=== PATIENT | male | born 1945 | race Caucasian/White ===

== ENCOUNTER 2016-09-25 20:40 | Inpatient (IN) | payer MEDICARE, BC ==
[2016-09-25] MEDS ORDERED: ACETAMINOPHEN TAB 500 MG TAB PO STA (21:11)
[2016-09-25] MEDS ORDERED: SODIUM CHLORIDE 0.9% 1,000 ML IV STA (21:11)
[2016-09-25 21:27] LABS: Basophils % (A) 0 %; Eosinophils % (A) 1 %; HCT 46.6 % (39.0-53.0); HDW 2.81; HGB 15.7 gm/dL (13.0-17.5); Immature Gran Flag Marked; Luc # (Auto) 0.01; Luc % (Auto) 0; Lymphocytes # (A) 0.2 k/uL (1.0-4.8); Lymphocytes % (A) 5 %; MCH 30.9 pg (25.0-35.0); MCHC 33.7 g/dL (31.0-37.0); MCV 91.8 fL (80.0-100.0); Mean Platelet Volume 7.5; Monocytes # (A) 0.1 k/uL (0-1.0); Monocytes % (A) 2 %; Neutrophils # (A) 3.8 k/uL (1.3-7.7); Neutrophils % (A) 92 %; RBC 5.07 m/uL (4.30-5.90); RDW 14.4 % (11.5-15.5); WBC 4.1 k/uL (3.8-10.6); WBC (Perox) 3.84
[2016-09-25 21:31] LABS: Amorphous Sediment,Urine Rare /hpf; Appearance,Urine Clear (Clear); Bacteria,Urine Rare /hpf; Bilirubin,Urine Negative (Negative); Glucose,Urine (UA) Negative (Negative); Granular Casts,Urine 1 /lpf (0); Ketones,Urine Negative (Negative); Leukocyte Esterase,Urine Negative (Negative); Mucus,Urine Rare /hpf; Nitrite,Urine Negative (Negative); PH, Urine 5.5 (5.0-8.0); Particle Count 2388; Protein,Urine 2+ (Negative); RBC,Urine <1 /hpf (0-5); Specific Gravity,Urine 1.005 (1.001-1.035); UA Billing (MACRO vs. MICRO) MICRO; Urobilinogen,Urine <2.0 mg/dL (<2.0)
[2016-09-25] MEDS ORDERED: RX INFO: IV CONTRAST WAS GIVEN 1 EACH MISC MISCELLANE PRN (21:32)
[2016-09-25 21:54] LABS: ALT 265 U/L (21-72); AST 339 U/L (17-59); Alkaline Phosphatase 110 U/L (38-126); Amylase 82 U/L (30-110); Anion Gap 9 mmol/L; Blood Urea Nitrogen 24 mg/dL (9-20); Calcium 9.1 mg/dL (8.4-10.2); Carbon Dioxide 22 mmol/L (22-30); Chloride 110 mmol/L (98-107); Glucose 117 mg/dL (74-99); Non-African American GFR(MDRD) 54 (>60 ml/min/1.73 sqM); Potassium 4.6 mmol/L (3.5-5.1); Sodium 141 mmol/L (137-145); Total Bilirubin 1.8 mg/dL (0.2-1.3); Total Protein 6.8 g/dL (6.3-8.2)
--- NOTE | 2016-09-25 21:54 | ED ---
Back Pain HPI <ClarkDaquan - Last Filed: 09/26/16 00:16> - General Source: patient, EMS, RN notes reviewed, old records reviewed Limitations: no limitations <Jacque Gil - Last Filed: 09/26/16 03:35> - General Chief Complaint: Back Pain/Injury Stated Complaint: back pain Time Seen by Provider: 09/25/16 20:51 - History of Present Illness Initial Comments: 71-year-old male presents the ED chief complaint of back pain. Patient reports that he was working in the yard today and thinks he pulled a muscle. Patient arrived to the ambulance via EMS as the pain was penetrating down his legs. Patient was found to have a fever. Temperature 103.4. Patient states that his pain is now reduced after receiving morphine from EMS. Patient states that he did not notice having a fever earlier today but did feel very cold. He denies any abdominal pain. Patient reports the pain started in the lower back radiating towards his hips. Patient denies any difficulty urinating or changes in bowel movements. Patient reports that he had a colonoscopy one month ago. 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 He also reports he does have a previous cardiac history including a stent. Patient doesn't any chest pain or shortness of breath. ( Jacque Gil) - Related Data Home Medications Medication Instructions Recorded Confirmed Allopurinol [Zyloprim] 100 mg PO BID 09/25/16 09/25/16 Aspirin [Adult Low Dose Aspirin EC] 81 mg PO BID 09/25/16 09/25/16 Carvedilol [Coreg] 25 mg PO BID 09/25/16 09/25/16 DULoxetine HCL [Cymbalta] 60 mg PO DAILY 09/25/16 09/25/16 Ergocalciferol [Vitamin D2] 50,000 unit PO Q14D 09/25/16 09/25/16 Furosemide [Lasix] 20 mg PO SUTUWETHSA 09/25/16 09/25/16 Furosemide [Lasix] 40 mg PO MOFR 09/25/16 09/25/16 LORazepam [Ativan] 1 mg PO DAILY PRN 09/25/16 09/25/16 Liraglutide [Victoza 2-Seferino] 0.6 mg SQ DAILY 09/25/16 09/25/16 Lisinopril [Zestril] 40 mg PO DAILY 09/25/16 09/25/16 Multivitamins, Thera [Multivitamin 1 tab PO DAILY 09/25/16 09/25/16 (formulary)] Nitroglycerin Sl Tabs [Nitrostat] 0.4 mg SUBLINGUAL Q5M PRN 09/25/16 09/25/16 Nortriptyline HCl [Pamelor] 50 mg PO HS 09/25/16 09/25/16 [place]-3/Dha/Epa/Fish Oil [Fish Oil 1 cap PO DAILY 09/25/16 09/25/16 1,360 mg Softgel] Rosuvastatin [Crestor] 10 mg PO HS 09/25/16 09/25/16 Terazosin HCl 2 mg PO BID 09/25/16 09/25/16 Ubidecarenone [Co Q-10] 100 mg PO DAILY 09/25/16 09/25/16 Allergies Allergy/AdvReac Type Severity Reaction Status Date / Time adhesive tape Allergy Itching Verified 09/25/16 21:24 Penicillins Allergy Rash/Hives Verified 09/25/16 21:24 prednisone AdvReac Unknown Verified 09/25/16 21:24 Review of Systems ROS Other: All systems not noted in ROS Statement are negative. <Daquan Clark - Last Filed: 09/26/16 00:16> ROS Other: All systems not noted in ROS Statement are negative. <Jacque Gil - Last Filed: 09/26/16 03:35> ROS Statement: Those systems with pertinent positive or pertinent negative responses have been documented in the HPI. Past Medical History Past Medical History: Diabetes Mellitus, Fibromyalgia, Hyperlipidemia, Hypertension, Myocardial Infarction ([place]), Renal Disease History of Any Multi-Drug Resistant Organisms: None Reported Past Surgical History: Adenoidectomy, Heart Catheterization With Stent Past Psychological History: Anxiety Smoking Status: Never smoker Past Alcohol Use History: None Reported Past Drug Use History: None Reported - Past Family History Father Family Medical History: No Reported History <Jacque Gil - Last Filed: 09/26/16 03:35> General Exam <Daquan Clark - Last Filed: 09/26/16 00:16> Limitations: no limitations General appearance: alert, in no apparent distress Head exam: Present: atraumatic, normocephalic, normal inspection Eye exam: Present: normal appearance, PERRL, EOMI. Absent: scleral icterus, conjunctival injection, periorbital swelling ENT exam: Present: normal exam, mucous membranes moist Neck exam: Present: normal inspection. Absent: tenderness, meningismus, lymphadenopathy Respiratory exam: Present: normal lung sounds bilaterally. Absent: respiratory distress, wheezes, rales, rhonchi, stridor Cardiovascular Exam: Present: regular rate, normal rhythm, normal heart sounds. Absent: systolic murmur, diastolic murmur, rubs, gallop, clicks GI/Abdominal exam: Present: soft, normal bowel sounds. Absent: distended, tenderness, guarding, rebound, rigid Extremities exam: Present: normal inspection, full ROM, normal capillary refill. Absent: tenderness, pedal edema, joint swelling, calf tenderness Back exam: Present: normal inspection, other (Patient denies any back or abdominal pain at this time.) Neurological exam: Present: alert, oriented X3, CN II-XII intact Psychiatric exam: Present: normal affect, normal mood Skin exam: Present: warm, dry, intact, normal color. Absent: rash <Jacque Gil - Last Filed: 09/26/16 03:35> - General Exam Comments Initial Comments: Well-appearing 71-year-old male. No acute distress. (Jacque Gil) Medical Decision Making - Lab Data Result diagrams: 09/25/16 21:05 09/25/16 21:05 <Daquan Clark - Last Filed: 09/26/16 00:16> - Lab Data Result diagrams: 09/25/16 21:05 09/25/16 21:05 - Radiology Data Radiology results: report reviewed <Jacque Gil - Last Filed: 09/26/16 03:35> - Medical Decision Making Patient reevaluated by myself, Dr. Clark. Patient is feeling better. Patient states back discomfort is near resolved. No tenderness on exam. Abdomen is soft with minimal tenderness left lower abdomen. Computed tomography scan concerning for mild diverticulitis. Also cholelithiasis. Case was discussed with Dr. Triana, who will admit for hospital call. Dr. Anaya will be placed on consult. Patient does meet sepsis criteria diagnosed at 12:17 AM. Lactic acid and blood cultures have been drawn. IV antibiotics have been ordered. (Daquan Clark) 71-year-old male presents the ED are via EMS for chief complaint of lower back pain. Patient was found to have a fever via EMS. They brought him in after giving for morphine. Patient denies any back pain or any pain at this time. He does report that he still feels chilled. Patient was given Tylenol. Patient was given IV fluids and lab work was started. Patient's weight little, is normal. Patient's urinalysis did show trace blood but no other abnormalities. Patient's chem panel did show elevated AST and ALTs. AST is 339 and ALTs 265. Again patient denies any abdominal tenderness. Patient does have an no back pain at this time. Patient's vital signs were monitored continually having a heart rate 120. Oxygen saturation tends to be low at 94- 95. Chest x-ray was ordered, negative for any acute process. Computed tomography scan shows concern for mild diverticulitis also cholelithiasis. Patient was started on Levaquin and Flagyl. Patient case was assessed with Dr. Clark. He will admit the patient for Dr. Nina and Dr. Anaya will be consult. Patient's does show us previous labwork that he had drawn in May of this past year. Patient had no abnormal elevations of the liver enzymes at that time. We did order a hepatitis panel as well. (Jacque Gil) - Lab Data Lab Results 09/25/16 09/25/16 09/25/16 Range/Units 21:05 21:05 21:05 WBC 4.1 (3.8-10.6) k/uL RBC 5.07 (4.30-5.90) m/uL Hgb 15.7 (13.0-17.5) gm/dL Hct 46.6 (39.0-53.0) % MCV 91.8 (80.0-100.0) fL MCH 30.9 (25.0-35.0) pg MCHC 33.7 (31.0-37.0) g/dL RDW 14.4 (11.5-15.5) % Plt Count 75 L (150-450) k/uL Neutrophils % 92 % Lymphocytes % 5 % Monocytes % 2 % Eosinophils % 1 % Basophils % 0 % Neutrophils # 3.8 (1.3-7.7) k/uL Lymphocytes # 0.2 L (1.0-4.8) k/uL Monocytes # 0.1 (0-1.0) k/uL Eosinophils # 0.0 (0-0.7) k/uL Basophils # 0.0 (0-0.2) k/uL Manual Slide Review Performed Toxic Granulation Present Sodium 141 (137-145) mmol/L Potassium 4.6 (3.5-5.1) mmol/L Chloride 110 H (98-107) mmol/L Carbon Dioxide 22 (22-30) mmol/L Anion Gap 9 mmol/L BUN 24 H (9-20) mg/dL Creatinine 1.30 H (0.66-1.25) mg/dL Est GFR (MDRD) Af Amer >60 (>60 ml/min/1.73 sqM) Est GFR (MDRD) Non-Af 54 (>60 ml/min/1.73 sqM) Glucose 117 H (74-99) mg/dL Plasma Lactic Acid Axel 1.7 (0.7-2.0) mmol/L Calcium 9.1 (8.4-10.2) mg/dL Total Bilirubin 1.8 H (0.2-1.3) mg/dL AST 339 H (17-59) U/L ALT 265 H (21-72) U/L Alkaline Phosphatase 110 (38-126) U/L Total Protein 6.8 (6.3-8.2) g/dL Albumin 4.0 (3.5-5.0) g/dL Amylase 82 (30-110) U/L Lipase 170 (23-300) U/L Urine Color Urine Appearance (Clear) Urine pH (5.0-8.0) Ur Specific [place] (1.001-1.035) Urine Protein (Negative) Urine Glucose (UA) (Negative) Urine Ketones (Negative) Urine Blood (Negative) Urine Nitrite (Negative) Urine Bilirubin (Negative) Urine Urobilinogen (<2.0) mg/dL Ur Leukocyte Esterase (Negative) Urine RBC (0-5) /hpf Amorphous Sediment (None) /hpf Urine Bacteria (None) /hpf Granular Casts (0) /lpf Urine Mucus (None) /hpf Hepatitis A IgM Ab Hep Bs Antigen Hep B Core IgM Ab Hep C IgG Ab (Negative) 06/25/17 06/25/17 Range/Units 21:05 21:05 WBC (3.8-10.6) k/uL RBC (4.30-5.90) m/uL Hgb (13.0-17.5) gm/dL Hct (39.0-53.0) % MCV (80.0-100.0) fL MCH (25.0-35.0) pg MCHC (31.0-37.0) g/dL RDW (11.5-15.5) % Plt Count (150-450) k/uL Neutrophils % % Lymphocytes % % Monocytes % % Eosinophils % % Basophils % % Neutrophils # (1.3-7.7) k/uL Lymphocytes # (1.0-4.8) k/uL Monocytes # (0-1.0) k/uL Eosinophils # (0-0.7) k/uL Basophils # (0-0.2) k/uL Manual Slide Review Toxic Granulation Sodium (137-145) mmol/L Potassium (3.5-5.1) mmol/L Chloride (98-107) mmol/L Carbon Dioxide (22-30) mmol/L Anion Gap mmol/L BUN (9-20) mg/dL Creatinine (0.66-1.25) mg/dL Est GFR (MDRD) Af Amer (>60 ml/min/1.73 sqM) Est GFR (MDRD) Non-Af (>60 ml/min/1.73 sqM) Glucose (74-99) mg/dL Plasma Lactic Acid Axel (0.7-2.0) mmol/L Calcium (8.4-10.2) mg/dL Total Bilirubin (0.2-1.3) mg/dL AST (17-59) U/L ALT (21-72) U/L Alkaline Phosphatase (38-126) U/L Total Protein (6.3-8.2) g/dL Albumin (3.5-5.0) g/dL Amylase (30-110) U/L Lipase (23-300) U/L Urine Color Light Yellow Urine Appearance Clear (Clear) Urine pH 5.5 (5.0-8.0) Ur Specific [place] 1.005 (1.001-1.035) Urine Protein 2+ H (Negative) Urine Glucose (UA) Negative (Negative) Urine Ketones Negative (Negative) Urine Blood Trace H (Negative) Urine Nitrite Negative (Negative) Urine Bilirubin Negative (Negative) Urine Urobilinogen <2.0 (<2.0) mg/dL Ur Leukocyte Esterase Negative (Negative) Urine RBC <1 (0-5) /hpf Amorphous Sediment Rare H (None) /hpf Urine Bacteria Rare H (None) /hpf Granular Casts 1 (0) /lpf Urine Mucus Rare H (None) /hpf Hepatitis A IgM Ab NEGATIVE Hep Bs Antigen Negative Hep B Core IgM Ab NEGATIVE Hep C IgG Ab Negative (Negative) 09/26/16 02:52 EKG showed sinus tachycardia. Rightward axis. Ventricular rate of 140 bpm. Verbal 144 ms. QRS ration 96 ms. QT QTc is 316/482 ms. No evidence of ST elevation or T-wave inversion. (Jacque Gil) - Radiology Data CT abdomen and pelvis with contrast was performed. Findings included small gallstones, no glad gallbladder wall thickening or pericolic systolic fluid. The liver spleen and pancreas and adrenal glands show no substantial abnormality. There is mild nonspecific bilateral perirenal edema. This could be due to since state changes. However correlate with urinalysis to exclude infection. No hydronephrosis or hydroureter. There is moderate sigmoid diverticulosis with wall thickening. Could result represent mild diverticulitis. Mesenteric hyperemia seen at the site. There is fatty infiltration of the urinary bladder wall which could be secondary to prior infection. No lymphadenopathy. No aortic abnormality. Multilevel degenerative spondylosis and minimal rightward curvature of the mid lumbar spine and minimal right lumbar subluxation of L3 relative to L4. X-ray shows no evidence of consolidation. (Jacque Gil) Disposition <Daquan Clark - Last Filed: 09/26/16 00:16> Time of Disposition: 00:30 <Jacque Gil - Last Filed: 09/26/16 03:35> Clinical Impression: Sepsis, Diverticulitis, Elevated liver enzymes Disposition: ADMITTED IP TO THIS HOSP Condition: Stable
[2016-09-25 22:00] LABS: Manual Review Performed; Toxic Granulation Present
--- NOTE | 2016-09-25 22:57 | CT ---
Exam: CT ABDOMEN + PELVIS With Contrast History: Lower back pain and fever.. Comparison: None provided. Technique: Continuous axial images of the abdomen and pelvis are obtained after administration of intravenous contrast. Coronal and sagittal reformatting was provided. Findings: There are small gallstones, but no gallbladder wall thickening or pericholecystic fluid. The liver, spleen, pancreas, and adrenal glands show no substantial abnormality. There is mild nonspecific bilateral perirenal edema. This could be due to senescent changes. However, correlate with urinalysis to exclude infection. No hydronephrosis or hydroureter. There is moderate sigmoid diverticulosis with mild wall thickening. This could represent mild diverticulitis. Minimal mesenteric hyperemia seen at this site. No dilated loop of bowel. There is fatty infiltration of the urinary bladder wall which may be secondary to prior infection. No lymphadenopathy appreciated. No acute aortic abnormality. No aggressive appearing osseous process. Multi- level degenerative spondylosis with a minimal rightward curvature of the midlumbar spine and a minimal right lateral subluxation of L3 relative to L4. Impression: 1. Question mild diverticulitis. 2. Cholelithiasis. 3. Additional nonacute findings as discussed above. DLP = 1690.0 mGycm One or more of the following dose reduction techniques were used: automated exposure control, adjustment of the mA and/or kV according to patient size, use of iterative reconstruction technique.
[2016-09-25] MEDS ORDERED: IBUPROFEN 600 MG TAB PO STA (23:10)
[2016-09-26] MEDS ORDERED: LEVOFLOXACIN 750MG-D5W PMX 750 MG in DEXTROSE/WATER 1 150ML.BAG IVPB STA (00:08)
[2016-09-26] MEDS ORDERED: metroNIDAZOLE-NS PMX 500 MG in SALINE 1 100ML.BAG IVPB STA (00:08)
[2016-09-26] MEDS ORDERED: SODIUM CHLORIDE 0.9% 1,000 ML IV STA (00:18)
[2016-09-26] MEDS ORDERED: HYDROcodone/APAP 5-325MG 1 EACH TAB PO PRN (00:31)
[2016-09-26] MEDS ORDERED: NALOXONE 0.4 MG/ML 1 ML VIAL IV PRN (00:31)
[2016-09-26] MEDS ORDERED: HYDROmorphone 1 MG/ML 1 ML SYRINGE IV PRN (00:31)
[2016-09-26] MEDS ORDERED: ONDANSETRON 4 MG/2 ML VIAL IVP PRN (00:31)
[2016-09-26] MEDS ORDERED: ACETAMINOPHEN TAB 325 MG TAB PO PRN (00:31)
[2016-09-26 01:31] VITALS: BMI 29.3
--- NOTE | 2016-09-26 01:42 | XR ---
Exam: XR CXR 2 VIEWS History: Pain. Comparison: None provided. Technique: 2 views. Findings: Streaky densities projecting over the lower thoracic spine on the lateral view are felt to represent vascular shadows and overlap of the descending thoracic aorta. No definite focal consolidation or significant effusion. Heart shadow is top normal in transverse dimension, likely accentuated by technique. Impression: No definite consolidation.
[2016-09-26 02:06] LABS: Hepatitis B Surface Ag Index 0.05
[2016-09-26 02:12] LABS: Hepatitis B Core IgM Index 0.02
[2016-09-26 02:23] LABS: Hepatitis C Virus IgG Ab Negative (Negative); Hepatitis C Virus IgG Index 0.02
[2016-09-26 06:59] LABS: Glucose,Whole Blood 140 mg/dL (75-99)
[2016-09-26] MEDS: metroNIDAZOLE-NS PMX 500 MG in SALINE 1 100ML.BAG IVPB SCH ×2 (07:47→15:53)
[2016-09-26] MEDS: SODIUM CHLORIDE 0.9% 1,000 ML IV SCH ×3 (07:47→15:51)
[2016-09-26] MEDS: PANTOPRAZOLE 40 MG/10 ML VIAL IV SCH (07:56)
[2016-09-26 08:22] LABS: Basophils % (A) 0 %; CH 31.7; CHCM 34.3; Eosinophils # (A) 0.1 k/uL (0-0.7); Eosinophils % (A) 0 %; HCT 40.6 % (39.0-53.0); HDW 2.71; HGB 13.7 gm/dL (13.0-17.5); Luc % (Auto) 1; Lymphocytes # (A) 0.6 k/uL (1.0-4.8); Lymphocytes % (A) 5 %; MCH 31.3 pg (25.0-35.0); MCHC 33.7 g/dL (31.0-37.0); MCV 92.8 fL (80.0-100.0); Mean Platelet Volume 7.6; Monocytes # (A) 0.6 k/uL (0-1.0); Monocytes % (A) 5 %; Neutrophils # (A) 11.5 k/uL (1.3-7.7); Neutrophils % (A) 89 %; RBC 4.38 m/uL (4.30-5.90); RDW 14.4 % (11.5-15.5); WBC 12.9 k/uL (3.8-10.6); WBC (Perox) 13.54
[2016-09-26 08:23] LABS: Calcium 7.8 mg/dL (8.4-10.2); Potassium 5.1 mmol/L (3.5-5.1); Total Bilirubin 1.2 mg/dL (0.2-1.3); Total Protein 5.8 g/dL (6.3-8.2)
[2016-09-26 11:56] LABS: Glucose,Whole Blood 113 mg/dL (75-99)
--- NOTE | 2016-09-26 13:35 | P.NPCON ---
History of Present Illness - Reason for Consult acute renal failure - History of Present Illness Reason for consultation: Acute kidney injury on chronic kidney disease History of present illness: Patient is a 71-year-old male seen in renal consultation for acute kidney injury on chronic kidney disease. Vision has chronic kidney disease stage III secondary to biopsy-proven FSGS with baseline creatinine in the range of 1.3- 1.4. His creatinine was 1.3 yesterday and is elevated at 2 today. Patient presented to the hospital with back pain that started after he did yard work. Patient states the pain was radiating down both of his legs. His oral intake has been good. He denies any vomiting or diarrhea. At the time of presentation he had a CAT scan of the abdomen and pelvis done with IV contrast which revealed sigmoid diverticulitis for which she is currently maintained on IV antibiotics. Patient also states he had a dental implant about 2 weeks ago for which she completed course of clindamycin. His blood pressures have also been on the lower side in the systolic 90s. His lactic acid level was 3.5 yesterday and is down to 1.4 today. He did receive 2 L of IV fluid. He did receive 1 dose of Motrin this admission. At home he is maintained on diuretics as well as an TERRENCE inhibitor check currently held. He diarrhea. He was also noted to have a fever of 103.4 at the time of admission. He is afebrile this morning. Denies chest pain or shortness of breath. Vital signs are stable. General: The patient appeared well nourished and normally developed. HEENT: Head exam is unremarkable. Neck is without jugular venous distension. LUNGS: Lungs are clear to auscultation and percussion. Breath sounds decreased. HEART: Rate and Rhythm are regular. First and second heart sounds normal. No murmurs, rubs or gallops. ABDOMEN: Abdominal exam reveals normal bowel sounds. Non-tender and non- distended. No evidence of peritonitis. EXTREMITITES: No clubbing, cyanosis, or edema. Past Medical History Past Medical History: Diabetes Mellitus, Fibromyalgia, Hyperlipidemia, Hypertension, Myocardial Infarction ([place]), Renal Disease Last Myocardial Infarction Date:: 2010 History of Any Multi-Drug Resistant Organisms: None Reported Past Surgical History: Adenoidectomy, Heart Catheterization With Stent Past Anesthesia/Blood Transfusion Reactions: No Reported Reaction Date of Last Stent Placement:: 2011 Past Psychological History: Anxiety Smoking Status: Never smoker Past Alcohol Use History: None Reported Past Drug Use History: None Reported - Past Family History Father Family Medical History: No Reported History Medications and Allergies Home Medications Medication Instructions Recorded Confirmed Type Allopurinol [Zyloprim] 100 mg PO BID 09/25/16 09/25/16 History Aspirin [Adult Low Dose Aspirin EC] 81 mg PO BID 09/25/16 09/25/16 History Carvedilol [Coreg] 25 mg PO BID 09/25/16 09/25/16 History DULoxetine HCL [Cymbalta] 60 mg PO DAILY 09/25/16 09/25/16 History Ergocalciferol [Vitamin D2] 50,000 unit PO Q14D 09/25/16 09/25/16 History Furosemide [Lasix] 20 mg PO SUTUWETHSA 09/25/16 09/25/16 History Furosemide [Lasix] 40 mg PO MOFR 09/25/16 09/25/16 History LORazepam [Ativan] 1 mg PO DAILY PRN 09/25/16 09/25/16 History Liraglutide [Victoza 2-Seferino] 0.6 mg SQ DAILY 09/25/16 09/25/16 History Lisinopril [Zestril] 40 mg PO DAILY 09/25/16 09/25/16 History Multivitamins, Thera [Multivitamin 1 tab PO DAILY 09/25/16 09/25/16 History (formulary)] Nitroglycerin Sl Tabs [Nitrostat] 0.4 mg SUBLINGUAL Q5M PRN 09/25/16 09/25/16 History Nortriptyline HCl [Pamelor] 50 mg PO HS 09/25/16 09/25/16 History [place]-3/Dha/Epa/Fish Oil [Fish Oil 1 cap PO DAILY 09/25/16 09/25/16 History 1,360 mg Softgel] Rosuvastatin [Crestor] 10 mg PO HS 09/25/16 09/25/16 History Terazosin HCl 2 mg PO BID 09/25/16 09/25/16 History Ubidecarenone [Co Q-10] 100 mg PO DAILY 09/25/16 09/25/16 History Allergies Allergy/AdvReac Type Severity Reaction Status Date / Time adhesive tape Allergy Itching Verified 09/25/16 21:24 Penicillins Allergy Rash/Hives Verified 09/25/16 21:24 prednisone AdvReac Unknown Verified 09/25/16 21:24 Physical Exam Vitals: Vital Signs Temp Pulse Pulse Resp BP BP Pulse Ox 09/26/16 07:00 98.4 F 99 16 108/67 96 09/26/16 03:48 98.8 F 117/68 09/26/16 02:52 95/58 09/26/16 02:08 95/50 09/26/16 02:05 100.3 F H 119 H 16 90/50 95 09/26/16 00:37 100.9 F H 127 H 18 102/59 94 L 09/25/16 23:24 102.2 F H 130 H 18 119/73 94 L 09/25/16 22:13 101.9 F H 129 H 18 114/72 94 L 09/25/16 20:54 103.4 F H 140 H 18 130/70 95 Intake and Output 09/25/16 09/26/16 09/26/16 22:59 06:59 14:59 Intake Total 360 Balance 360 Intake: IV 360 Sodium Chloride 0.9% 1, 360 000 ml @ 120 mls/hr IV . Q8H20M [facility] Rx#:[id number] Other: Voiding Method Urinal Urinal # Voids 1 1 Weight 87.543 kg 87.543 kg 87.543 kg Patient Weight 09/27/16 06:59 Weight 87.543 kg Results - Lab Results Most recent lab results Calcium 7.8 mg/dL (8.4-10.2) L 09/26/16 07:44 09/26/16 07:44 09/26/16 07:44 Assessment and Plan Plan: Assessment: #1. Nonoliguric acute kidney injury secondary to ischemic ATN secondary to sepsis and further worsened from the use of diuretics, TERRENCE inhibitor as well as NSAIDs. He also received IV dye on September 25. Creatinine up to 2.02 today. No hematuria noted on urinalysis. #2. Chronic kidney disease stage III with baseline creatinine in the range of 1.3-1.4 secondary to biopsy-proven FSGS. #3. Metabolic acidosis secondary to acute kidney injury and lactic acidosis. #4. Severe sepsis secondary to sigmoid diverticulitis. Plan: I will decrease rate of IV fluids to 75 mL an hour. Check postvoid residual and to insert Sy greater than 250 mL present. Avoid nephrotoxic agents and hypotensive episodes. TERRENCE inhibitor as well as diuretics held for now. Advance diet per surgery recommendations. Antibiotics per infectious disease recommendations. Repeat electrolytes in the morning. Thank you for the consultation. I will continue to follow the patient with you during his hospital stay.
[2016-09-26] MEDS ORDERED: NITROGLYCERIN SL TABS 0.4 MG TAB SUBLINGUAL PRN (13:38)
[2016-09-26] MEDS ORDERED: ERGOCALCIFEROL 50,000 UNIT CAP PO SCH (13:45)
[2016-09-26] MEDS ORDERED: FUROSEMIDE 40 MG TAB PO SCH (13:45)
[2016-09-26] MEDS: LORazepam 1 MG TAB PO PRN ×2 (14:14→21:40)
[2016-09-26 14:32] LABS: Amorphous Sediment,Urine Rare /hpf; Appearance,Urine Clear (Clear); Bilirubin,Urine Negative (Negative); Glucose,Urine (UA) Negative (Negative); Ketones,Urine Negative (Negative); Leukocyte Esterase,Urine Negative (Negative); Mucus,Urine Rare /hpf; Nitrite,Urine Negative (Negative); Particle Count 1221; Protein,Urine 1+ (Negative); RBC,Urine <1 /hpf (0-5); Specific Gravity,Urine 1.008 (1.001-1.035); UA Billing (MACRO vs. MICRO) MICRO; Urobilinogen,Urine <2.0 mg/dL (<2.0); WBC,Urine <1 /hpf (0-5)
--- NOTE | 2016-09-26 14:47 | P.HPIM ---
History of Present Illness H&P Date: 09/26/16 Chief Complaint: Back pain 71-year-old gentleman presented on the day of admission to the emergency room on September 25 with a chief complaint of developing lower back pain. Patient stated the pain radiated down both legs. Patient stated he been working out in the yard most of the day he thought he pulled a muscle. Patient states the pain became unbearable. His had to activate the EMS system. Patient stated it was too much pain to move the pain was in the lower back In the emergency room patient was noted to have a temp of 103.4. white count of 4.1 today's white count is up to 14 lactic acid was 3.8 creatinine 1.3. Patient had a CAT scan of the abdomen pelvis in the emergency room with IV contrast in summary it did show mild sigmoid diverticulitis. denies any burning on urination frequency urgency. Patient denies any unintentional weight loss weight gain or change in bowel habits Patient states he did have a colonoscopy done in July 2016 he was told at that time everything was fine. Additionally patient stated that he had dental implant put in about 2 weeks ago he did complete a course of antibiotics clindamycin. In the emergency room the patient did receive 2 liters of IV fluid given for a systolic blood pressure in the 90s. Patient stated that he was not experiencing any chest pain no shortness of breath. He stated that he had been having some frequent loose stools at home. Patient denied any abdominal pain when questioning. Subsequent the patient was admitted to the services of the attending with infectious disease and nephrology consultation requested On arrival the patient's platelet count was 75 AST and ALT were elevated AST was 339, ALT to 65. Amylase 82. Lipase 170. Total bili 1.8. The at the bedside did bring medical records records reviewing prior labs platelet count in July was 170 in the AST and ALT were not elevated they were within the normal limit Review of Systems Essentially unremarkable except as mentioned in the present on Past Medical History Past Medical History: Diabetes Mellitus, Fibromyalgia, Hyperlipidemia, Hypertension, Myocardial Infarction ([place]), Renal Disease Last Myocardial Infarction Date:: 2010 History of Any Multi-Drug Resistant Organisms: None Reported Past Surgical History: Adenoidectomy, Heart Catheterization With Stent Past Anesthesia/Blood Transfusion Reactions: No Reported Reaction Date of Last Stent Placement:: 2010 Past Psychological History: Anxiety Smoking Status: Never smoker Past Alcohol Use History: None Reported Past Drug Use History: None Reported - Past Family History Father Family Medical History: No Reported History Medications and Allergies Home Medications Medication Instructions Recorded Confirmed Type Allopurinol [Zyloprim] 100 mg PO BID 09/25/16 09/25/16 History Aspirin [Adult Low Dose Aspirin EC] 81 mg PO BID 09/25/16 09/25/16 History Carvedilol [Coreg] 25 mg PO BID 09/25/16 09/25/16 History DULoxetine HCL [Cymbalta] 60 mg PO DAILY 09/25/16 09/25/16 History Ergocalciferol [Vitamin D2] 50,000 unit PO Q14D 09/25/16 09/25/16 History Furosemide [Lasix] 20 mg PO SUTUWETHSA 09/25/16 09/25/16 History Furosemide [Lasix] 40 mg PO MOFR 09/25/16 09/25/16 History LORazepam [Ativan] 1 mg PO DAILY PRN 09/25/16 09/25/16 History Liraglutide [Victoza 2-Seferino] 0.6 mg SQ DAILY 09/25/16 09/25/16 History Lisinopril [Zestril] 40 mg PO DAILY 09/25/16 09/25/16 History Multivitamins, Thera [Multivitamin 1 tab PO DAILY 09/25/16 09/25/16 History (formulary)] Nitroglycerin Sl Tabs [Nitrostat] 0.4 mg SUBLINGUAL Q5M PRN 09/25/16 09/25/16 History Nortriptyline HCl [Pamelor] 50 mg PO HS 09/25/16 09/25/16 History [place]-3/Dha/Epa/Fish Oil [Fish Oil 1 cap PO DAILY 09/25/16 09/25/16 History 1,360 mg Softgel] Rosuvastatin [Crestor] 10 mg PO HS 09/25/16 09/25/16 History Terazosin HCl 2 mg PO BID 09/25/16 09/25/16 History Ubidecarenone [Co Q-10] 100 mg PO DAILY 09/25/16 09/25/16 History Allergies Allergy/AdvReac Type Severity Reaction Status Date / Time adhesive tape Allergy Itching Verified 09/25/16 21:24 Penicillins Allergy Rash/Hives Verified 09/25/16 21:24 prednisone AdvReac Unknown Verified 09/25/16 21:24 Physical Exam Vitals: Vital Signs Temp Pulse Pulse Resp BP BP Pulse Ox 09/26/16 07:00 98.4 F 99 16 108/67 96 09/26/16 03:48 98.8 F 117/68 09/26/16 02:52 95/58 09/26/16 02:08 95/50 09/26/16 02:05 100.3 F H 119 H 16 90/50 95 09/26/16 00:37 100.9 F H 127 H 18 102/59 94 L 09/25/16 23:24 102.2 F H 130 H 18 119/73 94 L 09/25/16 22:13 101.9 F H 129 H 18 114/72 94 L 09/25/16 20:54 103.4 F H 140 H 18 130/70 95 Intake and Output 09/25/16 09/26/16 09/26/16 22:59 06:59 14:59 Intake Total 360 Balance 360 Intake: IV 360 Sodium Chloride 0.9% 1, 360 000 ml @ 120 mls/hr IV . Q8H20M [facility] Rx#:[id number] Other: Voiding Method Urinal Urinal # Voids 1 1 Weight 87.543 kg 87.543 kg 87.543 kg Patient Weight 09/27/16 06:59 Weight 87.543 kg GENERAL APPEARANCE: 71-year-old male patient is alert, oriented 3 reports having lower back discomfort VITAL SIGNS: Reviewed HEENT: Head is normocephalic and atraumatic. Pupils are equal and reactive. The nares are patent. Oropharynx is clear without lesions. NECK: Supple without lymphadenopathy. Traches midline. HEART: S1, S2. Regular rate and rhythm. No murmur noted denying chest pain LUNGS: No crackles or wheezes are heard. Adequate air movement bilaterally on room air ABDOMEN: Soft, nontender, nondistended with good bowel sounds. No peritoneal signs. No palpable organomegaly or masses. EXTREMITIES: Normal skin color and turgor. No cyanosis, rash, ulceration, clubbing or edema. Radial pedal pulses are 2/4 bilaterally. NEUROLOGICAL: No focal deficits. Strength and sensation are grossly intact. Results CBC & Chem 7: 09/26/16 07:44 09/26/16 07:44 Labs: Abnormal Lab Results - Last 24 Hours (Table) 09/25/16 09/25/16 09/25/16 Range/Units 21:05 21:05 21:05 WBC (3.8-10.6) k/uL Plt Count 75 L (150-450) k/uL Neutrophils # (1.3-7.7) k/uL Lymphocytes # 0.2 L (1.0-4.8) k/uL Chloride 110 H (98-107) mmol/L Carbon Dioxide (22-30) mmol/L BUN 24 H (9-20) mg/dL Creatinine 1.30 H (0.66-1.25) mg/dL Glucose 117 H (74-99) mg/dL POC Glucose (mg/dL) (75-99) mg/dL Plasma Lactic Acid Axel (0.7-2.0) mmol/L Calcium (8.4-10.2) mg/dL Total Bilirubin 1.8 H (0.2-1.3) mg/dL AST 339 H (17-59) U/L ALT 265 H (21-72) U/L Total Protein (6.3-8.2) g/dL Albumin (3.5-5.0) g/dL Urine Protein 2+ H (Negative) Urine Blood Trace H (Negative) Amorphous Sediment Rare H (None) /hpf Urine Bacteria Rare H (None) /hpf Urine Mucus Rare H (None) /hpf 09/26/16 09/26/16 09/26/16 Range/Units 02:09 06:57 07:44 WBC (3.8-10.6) k/uL Plt Count (150-450) k/uL Neutrophils # (1.3-7.7) k/uL Lymphocytes # (1.0-4.8) k/uL Chloride 108 H (98-107) mmol/L Carbon Dioxide 20 L (22-30) mmol/L BUN 30 H (9-20) mg/dL Creatinine 2.02 H (0.66-1.25) mg/dL Glucose 121 H (74-99) mg/dL POC Glucose (mg/dL) 140 H (75-99) mg/dL Plasma Lactic Acid Axel 3.8 H* (0.7-2.0) mmol/L Calcium 7.8 L (8.4-10.2) mg/dL Total Bilirubin (0.2-1.3) mg/dL AST 141 H (17-59) U/L ALT 198 H (21-72) U/L Total Protein 5.8 L (6.3-8.2) g/dL Albumin 3.1 L (3.5-5.0) g/dL Urine Protein (Negative) Urine Blood (Negative) Amorphous Sediment (None) /hpf Urine Bacteria (None) /hpf Urine Mucus (None) /hpf 09/26/16 09/26/16 Range/Units 07:44 11:55 WBC 12.9 H (3.8-10.6) k/uL Plt Count 82 L (150-450) k/uL Neutrophils # 11.5 H (1.3-7.7) k/uL Lymphocytes # 0.6 L (1.0-4.8) k/uL Chloride (98-107) mmol/L Carbon Dioxide (22-30) mmol/L BUN (9-20) mg/dL Creatinine (0.66-1.25) mg/dL Glucose (74-99) mg/dL POC Glucose (mg/dL) 113 H (75-99) mg/dL Plasma Lactic Acid Axel (0.7-2.0) mmol/L Calcium (8.4-10.2) mg/dL Total Bilirubin (0.2-1.3) mg/dL AST (17-59) U/L ALT (21-72) U/L Total Protein (6.3-8.2) g/dL Albumin (3.5-5.0) g/dL Urine Protein (Negative) Urine Blood (Negative) Amorphous Sediment (None) /hpf Urine Bacteria (None) /hpf Urine Mucus (None) /hpf Thrombosis Risk Factor Assmnt - Choose All That Apply Each Factor Represents 1 point: Obesity (BMI >25), Sepsis (< 1month) Each Risk Factor Represents 2 Points: Age 61-74 years Thrombosis Risk Factor Assessment Total Risk Factor Score: 4 Thrombosis Risk Factor Assessment Level: Moderate Risk Assessment and Plan Plan: Impression Present on admission febrile temp of 103, hypotensive systolic pressure in the 90s elevated lactic acid sepsis unclear etiology History of a colonoscopy done in July 2016 per patient report no acute findings New-onset thrombocytopenia platelets 75 were 170 in July 2016 New onset elevated liver enzymes Present on admission Acute renal failure secondary to ischemic ATN secondary to sepsis further worsening from the use of diuretics, TERRENCE inhibitor as well as 97 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 Baumann for the new onset cytopenia unclear etiology Surgical eval pending for elevated liver enzymes Continue IV antibiotics per infectious diseases recommendations IV fluid as ordered at 75 an hour Continue recommendations by nephrology avoid nephrotoxin agents and hypotensive episodes Repeat the labs in the morning Hold the TERRENCE inhibitor and diuretics per nephrology's recommendations Further recommendations pending The above impression and plan of care have been discussed and directed by signing physician. Orly Reyes nurse practitioner acting as scribe for signing physician.
[2016-09-26] MEDS: HEPARIN SODIUM,PORCINE 5,000 UNIT/ML 1 ML VIAL SQ SCH (15:58)
[2016-09-26] MEDS: CARVEDILOL 12.5 MG TAB PO SCH (16:40)
[2016-09-26 17:08] LABS: Glucose,Whole Blood 86 mg/dL (75-99)
--- NOTE | 2016-09-26 17:30 | US ---
EXAMINATION TYPE: US abdomen limited DATE OF EXAM: 09/26/2016 COMPARISON: 09/25/2016 CT CLINICAL HISTORY: 71-year-old male, evaluate for cholecystitis, fever , elevated liver enzymes. TECHNIQUE: Multiple sonographic images of the right upper quadrant are obtained. FINDINGS: EXAM MEASUREMENTS: Liver Length: 15.7 cm Gallbladder Wall: 0.3 cm CBD: 5.6 mm Right Kidney: 12.6 x 5.5 x 5.2 Pancreas: mostly obscured by bowel gas Liver: wnl Gallbladder: The general office assistant indicates small dependent calculi which is not well depicted on the pro vided images. Gallbladder is borderline distended measuring 4.1 cm wide. No pericholecystic fluid or abnormal wall thickening. Evidence for sonographic White's sign: No CBD: wnl Right Kidney: No hydronephrosis. IMPRESSION: 1. The general office assistant indicates the presence of tiny dependent calculi during real-time scanning. Border line gallbladder hydrops likely relates to fasting state. If continued concern for early acute cholec ystitis, short interval follow-up ultrasound or HIDA scan. 2. No biliary ductal dilatation.
[2016-09-26 21:07] LABS: Glucose,Whole Blood 141 mg/dL (75-99)
[2016-09-26] MEDS: TERAZOSIN 2 MG CAP PO SCH (21:40)
[2016-09-26] MEDS: NORTRIPTYLINE 25 MG CAP PO SCH (21:40)
[2016-09-26] MEDS: ASPIRIN 81 MG CHEW PO SCH (21:40)
[2016-09-26] MEDS: ALLOPURINOL 100 MG TAB PO SCH (21:40)
[2016-09-27] MEDS: HEPARIN SODIUM,PORCINE 5,000 UNIT/ML 1 ML VIAL SQ SCH ×3 (01:31→14:40)
[2016-09-27] MEDS: metroNIDAZOLE-NS PMX 500 MG in SALINE 1 100ML.BAG IVPB SCH ×3 (01:31→14:40)
[2016-09-27] MEDS: LEVOFLOXACIN 750MG-D5W PMX 750 MG in DEXTROSE/WATER 1 150ML.BAG IVPB SCH (01:31)
[2016-09-27] MEDS: LORazepam 1 MG TAB PO PRN ×2 (01:34→22:09)
[2016-09-27 06:55] LABS: Glucose,Whole Blood 95 mg/dL (75-99)
[2016-09-27 07:27] LABS: Basophils % (A) 0 %; CH 31.6; CHCM 34.3; Eosinophils # (A) 0.2 k/uL (0-0.7); Eosinophils % (A) 2 %; HCT 39.3 % (39.0-53.0); HDW 2.77; HGB 12.8 gm/dL (13.0-17.5); Luc # (Auto) 0.15; Luc % (Auto) 2; Lymphocytes # (A) 0.7 k/uL (1.0-4.8); Lymphocytes % (A) 8 %; MCH 30.3 pg (25.0-35.0); MCHC 32.7 g/dL (31.0-37.0); MCV 92.7 fL (80.0-100.0); Mean Platelet Volume 7.4; Monocytes # (A) 0.5 k/uL (0-1.0); Monocytes % (A) 6 %; Neutrophils # (A) 7.4 k/uL (1.3-7.7); Neutrophils % (A) 83 %; RBC 4.24 m/uL (4.30-5.90); RDW 14.4 % (11.5-15.5); WBC (Perox) 9.29
[2016-09-27 07:51] LABS: Potassium 4.1 mmol/L (3.5-5.1); Total Protein 5.5 g/dL (6.3-8.2)
--- NOTE | 2016-09-27 08:04 | P.GSCN ---
History of Present Illness Consult date: 09/26/16 Reason for Consult: Abdominal pain History of present illness: This a 71-year-old male referred from Dr. Chris Soto. Patient was admitted through the emergency room with complaints of back pain and abdominal pain. A CAT scan performed showed evidence of diverticulitis as well as possible [place] cholecystitis with cholelithiasis. Patient's noted to have elevated liver function tests on admission. Review of Systems - Constitutional Reports as per HPI Past Medical History Past Medical History: Diabetes Mellitus, Fibromyalgia, Hyperlipidemia, Hypertension, Myocardial Infarction ([place]), Renal Disease Last Myocardial Infarction Date:: 2010 History of Any Multi-Drug Resistant Organisms: None Reported Past Surgical History: Adenoidectomy, Heart Catheterization With Stent Past Anesthesia/Blood Transfusion Reactions: No Reported Reaction Date of Last Stent Placement:: 2010 Past Psychological History: Anxiety Smoking Status: Never smoker Past Alcohol Use History: None Reported Past Drug Use History: None Reported - Past Family History Father Family Medical History: No Reported History Medications and Allergies Home Medications Medication Instructions Recorded Confirmed Type Allopurinol [Zyloprim] 100 mg PO BID 09/25/16 09/25/16 History Aspirin [Adult Low Dose Aspirin EC] 81 mg PO BID 09/25/16 09/25/16 History Carvedilol [Coreg] 25 mg PO BID 09/25/16 09/25/16 History DULoxetine HCL [Cymbalta] 60 mg PO DAILY 09/25/16 09/25/16 History Ergocalciferol [Vitamin D2] 50,000 unit PO Q14D 09/25/16 09/25/16 History Furosemide [Lasix] 20 mg PO SUTUWETHSA 09/25/16 09/25/16 History Furosemide [Lasix] 40 mg PO MOFR 09/25/16 09/25/16 History LORazepam [Ativan] 1 mg PO DAILY PRN 09/25/16 09/25/16 History Liraglutide [Victoza 2-Seferino] 0.6 mg SQ DAILY 09/25/16 09/25/16 History Lisinopril [Zestril] 40 mg PO DAILY 09/25/16 09/25/16 History Multivitamins, Thera [Multivitamin 1 tab PO DAILY 09/25/16 09/25/16 History (formulary)] Nitroglycerin Sl Tabs [Nitrostat] 0.4 mg SUBLINGUAL Q5M PRN 09/25/16 09/25/16 History Nortriptyline HCl [Pamelor] 50 mg PO HS 09/25/16 09/25/16 History [place]-3/Dha/Epa/Fish Oil [Fish Oil 1 cap PO DAILY 09/25/16 09/25/16 History 1,360 mg Softgel] Rosuvastatin [Crestor] 10 mg PO HS 09/25/16 09/25/16 History Terazosin HCl 2 mg PO BID 09/25/16 09/25/16 History Ubidecarenone [Co Q-10] 100 mg PO DAILY 09/25/16 09/25/16 History Allergies Allergy/AdvReac Type Severity Reaction Status Date / Time adhesive tape Allergy Itching Verified 09/25/16 21:24 Penicillins Allergy Rash/Hives Verified 09/25/16 21:24 prednisone AdvReac Unknown Verified 09/25/16 21:24 Surgical - Exam Vital Signs Temp Pulse Resp BP Pulse Ox 103.4 F H 140 H 18 130/70 95 09/25/16 20:54 09/25/16 20:54 09/25/16 20:54 09/25/16 20:54 09/25/16 20:54 - General well developed, no distress - Eyes PERRL - ENT normal pinna - Neck no masses - Respiratory normal expansion - Cardiovascular Rhythm: regular - Abdomen Mild rubber quadrant tenderness., Mild left lower quadrant tenderness. There is no rebound or guarding. Abdomen: soft Results - Labs 09/27/16 06:51 09/26/16 07:44 Abnormal Lab Results - Last 24 Hours (Table) 09/26/16 09/26/16 09/26/16 Range/Units 07:44 07:44 11:55 WBC 12.9 H (3.8-10.6) k/uL RBC (4.30-5.90) m/uL Hgb (13.0-17.5) gm/dL Plt Count 82 L (150-450) k/uL Neutrophils # 11.5 H (1.3-7.7) k/uL Lymphocytes # 0.6 L (1.0-4.8) k/uL Chloride 108 H (98-107) mmol/L Carbon Dioxide 20 L (22-30) mmol/L BUN 30 H (9-20) mg/dL Creatinine 2.02 H (0.66-1.25) mg/dL Glucose 121 H (74-99) mg/dL POC Glucose (mg/dL) 113 H (75-99) mg/dL Calcium 7.8 L (8.4-10.2) mg/dL AST 141 H (17-59) U/L ALT 198 H (21-72) U/L Total Protein 5.8 L (6.3-8.2) g/dL Albumin 3.1 L (3.5-5.0) g/dL Urine Protein (Negative) Urine Blood (Negative) Amorphous Sediment (None) /hpf Urine Mucus (None) /hpf 09/26/16 09/26/16 09/27/16 Range/Units 13:40 21:06 06:51 WBC (3.8-10.6) k/uL RBC 4.24 L (4.30-5.90) m/uL Hgb 12.8 L (13.0-17.5) gm/dL Plt Count 78 L (150-450) k/uL Neutrophils # (1.3-7.7) k/uL Lymphocytes # 0.7 L (1.0-4.8) k/uL Chloride (98-107) mmol/L Carbon Dioxide (22-30) mmol/L BUN (9-20) mg/dL Creatinine (0.66-1.25) mg/dL Glucose (74-99) mg/dL POC Glucose (mg/dL) 141 H (75-99) mg/dL Calcium (8.4-10.2) mg/dL AST (17-59) U/L ALT (21-72) U/L Total Protein (6.3-8.2) g/dL Albumin (3.5-5.0) g/dL Urine Protein 1+ H (Negative) Urine Blood Trace H (Negative) Amorphous Sediment Rare H (None) /hpf Urine Mucus Rare H (None) /hpf Microbiology - Last 24 Hours (Table) 09/25/16 21:05 Blood Culture - Preliminary Blood No Growth after 24 hours 09/26/16 13:40 Urine Culture - Preliminary Urine,Clean Catch Diabetes panel 09/26/16 Range/Units 07:44 Sodium 137 (137-145) mmol/L Potassium 5.1 (3.5-5.1) mmol/L Chloride 108 H (98-107) mmol/L Carbon Dioxide 20 L (22-30) mmol/L BUN 30 H (9-20) mg/dL Creatinine 2.02 H (0.66-1.25) mg/dL Glucose 121 H (74-99) mg/dL Calcium 7.8 L (8.4-10.2) mg/dL AST 141 H (17-59) U/L ALT 198 H (21-72) U/L Alkaline Phosphatase 55 (38-126) U/L Total Protein 5.8 L (6.3-8.2) g/dL Albumin 3.1 L (3.5-5.0) g/dL Calcium panel 09/26/16 Range/Units 07:44 Calcium 7.8 L (8.4-10.2) mg/dL Albumin 3.1 L (3.5-5.0) g/dL Pituitary panel 09/26/16 Range/Units 07:44 Sodium 137 (137-145) mmol/L Potassium 5.1 (3.5-5.1) mmol/L Chloride 108 H (98-107) mmol/L Carbon Dioxide 20 L (22-30) mmol/L BUN 30 H (9-20) mg/dL Creatinine 2.02 H (0.66-1.25) mg/dL Glucose 121 H (74-99) mg/dL Calcium 7.8 L (8.4-10.2) mg/dL Adrenal panel 09/26/16 Range/Units 07:44 Sodium 137 (137-145) mmol/L Potassium 5.1 (3.5-5.1) mmol/L Chloride 108 H (98-107) mmol/L Carbon Dioxide 20 L (22-30) mmol/L BUN 30 H (9-20) mg/dL Creatinine 2.02 H (0.66-1.25) mg/dL Glucose 121 H (74-99) mg/dL Calcium 7.8 L (8.4-10.2) mg/dL Total Bilirubin 1.2 (0.2-1.3) mg/dL AST 141 H (17-59) U/L ALT 198 H (21-72) U/L Alkaline Phosphatase 55 (38-126) U/L Total Protein 5.8 L (6.3-8.2) g/dL Albumin 3.1 L (3.5-5.0) g/dL - Imaging CT scan - abdomen: report reviewed (Evidence of cholelithiasis as well as mild diverticulitis) US - abdomen: report reviewed (Cholelithiasis) Assessment and Plan Plan: Cholelithiasis, cholecystitis. Patient had elevation of liver enzymes which has decreased. Sigmoid diverticulitis. Patient received IV antibiotic. We will plan on Her scopic cholecystectomy when medically stable. He will also be scheduled for outpatient colonoscopy in 4-6 weeks once his diverticular disease improved.
[2016-09-27] MEDS: TERAZOSIN 2 MG CAP PO SCH ×2 (08:06→21:03)
[2016-09-27] MEDS: ASPIRIN 81 MG CHEW PO SCH ×2 (08:06→21:03)
[2016-09-27] MEDS: CARVEDILOL 12.5 MG TAB PO SCH ×2 (08:06→17:40)
[2016-09-27] MEDS: PANTOPRAZOLE 40 MG/10 ML VIAL IV SCH (08:06)
[2016-09-27] MEDS: DULoxetine HCL 60 MG CAPSULE.DR PO SCH (08:06)
[2016-09-27] MEDS: ALLOPURINOL 100 MG TAB PO SCH ×2 (08:07→21:04)
[2016-09-27] MEDS: SODIUM CHLORIDE 0.9% 1,000 ML IV SCH (08:09)
[2016-09-27] MEDS: LIRAGLUTIDE 0.6 MG SQ SCH (08:35)
[2016-09-27] MEDS ORDERED: NON-FORMULARY DRUG (Ubidecarenone [Co Q-10] 100 MG) PO SCH (09:00)
--- NOTE | 2016-09-27 10:31 | P.PN ---
Subjective Patient is seen in follow-up for acute kidney injury on chronic kidney disease. 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 Patient presented to the hospital with back pain which was radiating down to his legs. He did have a CAT scan with IV contrast dye on September 25 which revealed sigmoid diverticulitis. He's also noted to have cholelithiasis. He's tolerating clear liquid diet. No vomiting or diarrhea. Denies chest pain or shortness of breath. Renal function is improving with creatinine down to 1.42 today. Vital signs are stable. General: The patient appeared well nourished and normally developed. HEENT: Head exam is unremarkable. Neck is without jugular venous distension. LUNGS: Lungs are clear to auscultation and percussion. Breath sounds decreased. HEART: Rate and Rhythm are regular. First and second heart sounds normal. No murmurs, rubs or gallops. ABDOMEN: Abdominal exam reveals normal bowel sounds. Non-tender and non- distended. No evidence of peritonitis. EXTREMITITES: No clubbing, cyanosis, or edema. Objective - Vital Signs Vital signs: Vital Signs Temp 98.5 F 09/27/16 07:00 Pulse 92 09/27/16 08:00 Resp 16 09/27/16 08:00 BP 123/78 09/27/16 07:00 Pulse Ox 96 09/27/16 07:00 Intake & Output 09/26/16 09/27/16 09/27/16 18:59 06:59 18:59 Intake Total 2575 765 Output Total 950 Balance 1625 765 Weight 87.543 kg Intake: IV 900 Sodium Chloride 0.9% 1, 900 000 ml @ 120 mls/hr IV . Q8H20M [facility] Rx#:[id number] Intake, IV Titration 1175 525 Amount Sodium Chloride 0.9% 1, 75 525 000 ml @ 75 mls/hr IV . [id number] [facility] Rx#:[id number] Sodium Chloride 0.9% 1, 1000 000 ml @ 999 mls/hr IV . Q1H1M [facility] Rx#:[id number] PMX 500 100 mg In Saline 1 100ml.bag @ 100 mls/hr IVPB Q8HR [facility] Rx#:[id number] Oral 500 240 Output: Urine 950 Other: Voiding Method Urinal Toilet Toilet Urinal Urinal # Voids 3 2 - Labs CBC & Chem 7: 09/27/16 06:51 09/27/16 06:51 Labs: Abnormal Lab Results - Last 24 Hours (Table) 09/26/16 09/26/16 09/26/16 Range/Units 11:55 13:40 21:06 RBC (4.30-5.90) m/uL Hgb (13.0-17.5) gm/dL Plt Count (150-450) k/uL Lymphocytes # (1.0-4.8) k/uL Chloride (98-107) mmol/L Carbon Dioxide (22-30) mmol/L BUN (9-20) mg/dL Creatinine (0.66-1.25) mg/dL POC Glucose (mg/dL) 113 H 141 H (75-99) mg/dL Calcium (8.4-10.2) mg/dL AST (17-59) U/L ALT (21-72) U/L Total Protein (6.3-8.2) g/dL Albumin (3.5-5.0) g/dL Urine Protein 1+ H (Negative) Urine Blood Trace H (Negative) Amorphous Sediment Rare H (None) /hpf Urine Mucus Rare H (None) /hpf 09/27/16 09/27/16 Range/Units 06:51 06:51 RBC 4.24 L (4.30-5.90) m/uL Hgb 12.8 L (13.0-17.5) gm/dL Plt Count 78 L (150-450) k/uL Lymphocytes # 0.7 L (1.0-4.8) k/uL Chloride 111 H (98-107) mmol/L Carbon Dioxide 21 L (22-30) mmol/L BUN 21 H (9-20) mg/dL Creatinine 1.42 H (0.66-1.25) mg/dL POC Glucose (mg/dL) (75-99) mg/dL Calcium 8.0 L (8.4-10.2) mg/dL AST 63 H (17-59) U/L ALT 113 H (21-72) U/L Total Protein 5.5 L (6.3-8.2) g/dL Albumin 2.8 L (3.5-5.0) g/dL Urine Protein (Negative) Urine Blood (Negative) Amorphous Sediment (None) /hpf Urine Mucus (None) /hpf Microbiology - Last 24 Hours (Table) 09/25/16 21:05 Blood Culture - Preliminary Blood No Growth after 24 hours 09/26/16 13:40 Urine Culture - Preliminary Urine,Clean Catch Assessment and Plan Plan: Assessment: #1. Nonoliguric acute kidney injury secondary to ischemic ATN secondary to sepsis and further worsened from the use of diuretics, TERRENCE inhibitor as well as NSAIDs. He also received IV dye on September 25. Creatinine peaked at 2.02 and is down to 1.42 today. No hematuria noted on urinalysis. #2. Chronic kidney disease stage III with baseline creatinine in the range of 1.3-1.4 secondary to biopsy-proven FSGS. #3. Metabolic acidosis secondary to acute kidney injury and lactic acidosis. Improving. #4. Severe sepsis secondary to sigmoid diverticulitis. Plan: Maintain normal saline to be run at 75 mL an hour. Avoid nephrotoxic agents and hypotensive episodes. TERRENCE inhibitor as well as diuretics held for now. Advance diet per surgery recommendations. Antibiotics per infectious disease recommendations. Potential cholecystectomy this admission.
[2016-09-27 11:50] LABS: Glucose,Whole Blood 133 mg/dL (75-99)
--- NOTE | 2016-09-27 12:18 | P.PN ---
Subjective 71-year-old being seen and examined sitting up in bed. Appears in no acute distress. Patient is aware of the plan of care. Tentatively scheduled for a laparoscopic cholecystectomy. For cholelithiasis. Patient is denying any nausea vomiting denying chest pain or shortness of breath. Patients being followed by multiple consulting physicians platelets this morning 78 there is a noted improvement in the AST 63 this morning on admission 339 alt 113 this am currently the patient's denying abdominal pain when questioning Objective - Vital Signs Vital signs: Vital Signs Temp 98.5 F 09/27/16 07:00 Pulse 92 09/27/16 08:00 Resp 16 09/27/16 08:00 BP 123/78 09/27/16 07:00 Pulse Ox 96 09/27/16 07:00 Intake & Output 09/26/16 09/27/16 09/27/16 18:59 06:59 18:59 Intake Total 2575 765 Output Total 950 Balance 1625 765 Weight 87.543 kg Intake: IV 900 Sodium Chloride 0.9% 1, 900 000 ml @ 120 mls/hr IV . Q8H20M [facility] Rx#:[id number] Intake, IV Titration 1175 525 Amount Sodium Chloride 0.9% 1, 75 525 000 ml @ 75 mls/hr IV . [id number] [facility] Rx#:[id number] Sodium Chloride 0.9% 1, 1000 000 ml @ 999 mls/hr IV . Q1H1M [facility] Rx#:[id number] metroNIDAZOLE-NS PMX 500 100 mg In Saline 1 100ml.bag @ 100 mls/hr IVPB Q8HR [facility] Rx#:[id number] Oral 500 240 Output: Urine 950 Other: Voiding Method Urinal Toilet Toilet Urinal Urinal # Voids 3 2 3 - Exam Physical exam Afebrile temp is 98.5. Temp on admission 103.4 pleasant cooperative oriented 3 currently denying abdominal discomfort when questioning Lungs essentially clear adequate air movement Heart S1-S2 audible regular Abdomen soft no facial grimacing with palpitation to the abdominal wall bowel tones present reports of nausea vomiting Extremities no edema noted - Labs CBC & Chem 7: 09/27/16 06:51 09/27/16 06:51 Labs: Abnormal Lab Results - Last 24 Hours (Table) 09/26/16 09/26/16 09/27/16 Range/Units 13:40 21:06 06:51 RBC (4.30-5.90) m/uL Hgb (13.0-17.5) gm/dL Plt Count (150-450) k/uL Lymphocytes # (1.0-4.8) k/uL Chloride 111 H (98-107) mmol/L Carbon Dioxide 21 L (22-30) mmol/L BUN 21 H (9-20) mg/dL Creatinine 1.42 H (0.66-1.25) mg/dL POC Glucose (mg/dL) 141 H (75-99) mg/dL Calcium 8.0 L (8.4-10.2) mg/dL AST 63 H (17-59) U/L ALT 113 H (21-72) U/L Total Protein 5.5 L (6.3-8.2) g/dL Albumin 2.8 L (3.5-5.0) g/dL Urine Protein 1+ H (Negative) Urine Blood Trace H (Negative) Amorphous Sediment Rare H (None) /hpf Urine Mucus Rare H (None) /hpf 09/27/16 09/27/16 Range/Units 06:51 11:47 RBC 4.24 L (4.30-5.90) m/uL Hgb 12.8 L (13.0-17.5) gm/dL Plt Count 78 L (150-450) k/uL Lymphocytes # 0.7 L (1.0-4.8) k/uL Chloride (98-107) mmol/L Carbon Dioxide (22-30) mmol/L BUN (9-20) mg/dL Creatinine (0.66-1.25) mg/dL POC Glucose (mg/dL) 133 H (75-99) mg/dL Calcium (8.4-10.2) mg/dL AST (17-59) U/L ALT (21-72) U/L Total Protein (6.3-8.2) g/dL Albumin (3.5-5.0) g/dL Urine Protein (Negative) Urine Blood (Negative) Amorphous Sediment (None) /hpf Urine Mucus (None) /hpf Microbiology - Last 24 Hours (Table) 09/25/16 21:05 Blood Culture - Preliminary Blood No Growth after 24 hours 09/26/16 13:40 Urine Culture - Preliminary Urine,Clean Catch Assessment and Plan Plan: Impression Present on admission febrile temp of 103, hypotensive systolic pressure in the 90s elevated lactic acid sepsis suspect due to sigmoid diverticulitis History of a colonoscopy done in July 2016 per patient report no acute findings New-onset thrombocytopenia platelets 75 were 170 in July 2016 New onset elevated liver enzymes Present on admission Acute renal failure secondary to ischemic ATN secondary to sepsis further worsening from the use of diuretics, TERRENCE inhibitor as well as 97 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 Baumann for the new onset cytopenia unclear etiology Surgical service indicates patient be a candidate for laparoscopic cholecystectomy when medically stable Continue IV antibiotics per infectious diseases recommendations IV fluid as ordered at 75 an hour Continue recommendations by nephrology avoid nephrotoxin agents and hypotensive episodes Repeat the labs in the morning Hold the TERRENCE inhibitor and diuretics per nephrology's recommendations Further recommendations pending Follow-up on urine and blood cultures pending The above impression and plan of care have been discussed and directed by signing physician. Orly Reyes nurse practitioner acting as scribe for signing physician.
[2016-09-27] MEDS: MULTIVITAMINS, THERA 1 EACH TAB PO SCH (12:49)
--- NOTE | 2016-09-27 16:36 | P.CONS ---
History of Present Illness - Reason for Consult Consult date: 09/27/16 thrombocytopenia Requesting physician: Orly Reyes - Chief Complaint low back pain, fever - History of Present Illness Mr. Andrews is a very pleasant male pt who we have been asked to evaluate for new onset of thrombocytopenia. Pt denies any history of low platelets, he does have annual physical exams and is up to date on age related cancer screenings, denies bleeding, easy bruising or petechiae. His father has his spleen removed because of low platelets and his brother has low platelets, he is not on any treatment. Pt came to the ER with c/o low back pain, persistent, progressive and a fever. Pt met sepsis criteria and was admitted for treatment. Pt is being treated for sepsis, cultures are currently negative, he did have evidence of choleylithiasis and he is going to have his gallbladder removed. Pt states being comfortable today, back pain is controlled, no fevers, nausea, abd pain, indigestion, diarrhea or constipation. Review of Systems All systems: negative Constitutional: Reports as per HPI Past Medical History Past Medical History: Diabetes Mellitus, Fibromyalgia, Hyperlipidemia, Hypertension, Myocardial Infarction ([place]), Renal Disease Last Myocardial Infarction Date:: 2010 History of Any Multi-Drug Resistant Organisms: None Reported Past Surgical History: Adenoidectomy, Heart Catheterization With Stent Past Anesthesia/Blood Transfusion Reactions: No Reported Reaction Date of Last Stent Placement:: 2010 Past Psychological History: Anxiety Smoking Status: Never smoker Past Alcohol Use History: None Reported Past Drug Use History: None Reported - Past Family History Father Family Medical History: Blood Disorder (thrombocytopenia, had splenectomy) Medications and Allergies Home Medications Medication Instructions Recorded Confirmed Type Allopurinol [Zyloprim] 100 mg PO BID 09/25/16 09/25/16 History Aspirin [Adult Low Dose Aspirin EC] 81 mg PO BID 09/25/16 09/25/16 History Carvedilol [Coreg] 25 mg PO BID 09/25/16 09/25/16 History DULoxetine HCL [Cymbalta] 60 mg PO DAILY 09/25/16 09/25/16 History Ergocalciferol [Vitamin D2] 50,000 unit PO Q14D 09/25/16 09/25/16 History Furosemide [Lasix] 20 mg PO SUTUWETHSA 09/25/16 09/25/16 History Furosemide [Lasix] 40 mg PO MOFR 09/25/16 09/25/16 History LORazepam [Ativan] 1 mg PO DAILY PRN 09/25/16 09/25/16 History Liraglutide [Victoza 2-Seferino] 0.6 mg SQ DAILY 09/25/16 09/25/16 History Lisinopril [Zestril] 40 mg PO DAILY 09/25/16 09/25/16 History Multivitamins, Thera [Multivitamin 1 tab PO DAILY 09/25/16 09/25/16 History (formulary)] Nitroglycerin Sl Tabs [Nitrostat] 0.4 mg SUBLINGUAL Q5M PRN 09/25/16 09/25/16 History Nortriptyline HCl [Pamelor] 50 mg PO HS 09/25/16 09/25/16 History [place]-3/Dha/Epa/Fish Oil [Fish Oil 1 cap PO DAILY 09/25/16 09/25/16 History 1,360 mg Softgel] Rosuvastatin [Crestor] 10 mg PO HS 09/25/16 09/25/16 History Terazosin HCl 2 mg PO BID 09/25/16 09/25/16 History Ubidecarenone [Co Q-10] 100 mg PO DAILY 09/25/16 09/25/16 History Allergies Allergy/AdvReac Type Severity Reaction Status Date / Time adhesive tape Allergy Itching Verified 09/25/16 21:24 Penicillins Allergy Rash/Hives Verified 09/25/16 21:24 prednisone AdvReac Unknown Verified 09/25/16 21:24 Physical Exam Vitals: Vital Signs Temp Pulse Resp BP Pulse Ox 09/27/16 15:00 98.5 F 82 16 141/72 97 09/27/16 14:53 92 16 09/27/16 08:00 92 16 09/27/16 07:00 98.5 F 92 16 123/78 96 09/26/16 22:47 95 16 09/26/16 22:32 98.3 F 95 16 150/86 96 Intake and Output 09/27/16 09/27/16 09/27/16 06:59 14:59 22:59 Intake Total 525 360 Balance 525 360 Intake: Intake, IV Titration 525 Amount Sodium Chloride 0.9% 1, 525 000 ml @ 75 mls/hr IV . [id number] [facility] Rx#:[id number] Oral 360 Other: Voiding Method Toilet Urinal # Voids 4 - Constitutional General appearance: average body habitus, cooperative, no acute distress - EENT Eyes: anicteric sclerae, EOMI, PERRLA, normal appearance ENT: hearing grossly normal, normal oropharynx - Neck Neck: no lymphadenopathy - Respiratory Respiratory: bilateral: CTA - Cardiovascular Rhythm: regular Heart sounds: normal: S1, S2 Abnormal Heart Sounds: no systolic murmur, no diastolic murmur, no rub, no S3 Gallop, no S4 Gallop, no click, no other leg Peripheral Edema: bilateral: None - Gastrointestinal General gastrointestinal: no absent bowel sounds, no decreased bowel sounds, no distended, no hepatomegaly, no hyperactive bowel sounds, normal bowel sounds, no organomegaly, no rigid, no scaphoid, soft, no splenomegaly, no tenderness, no umbilical hernia, no ventral hernia - Integumentary Integumentary: normal - Neurologic Neurologic: CNII-XII intact - Musculoskeletal Musculoskeletal: strength equal bilaterally - Psychiatric Psychiatric: A&O x's 3, appropriate affect, intact judgment & insight Results CBC & Chem 7: 09/27/16 06:51 09/27/16 06:51 Labs: Abnormal Lab Results - Last 24 Hours (Table) 09/26/16 09/27/16 09/27/16 Range/Units 21:06 06:51 06:51 RBC 4.24 L (4.30-5.90) m/uL Hgb 12.8 L (13.0-17.5) gm/dL Plt Count 78 L (150-450) k/uL Lymphocytes # 0.7 L (1.0-4.8) k/uL Chloride 111 H (98-107) mmol/L Carbon Dioxide 21 L (22-30) mmol/L BUN 21 H (9-20) mg/dL Creatinine 1.42 H (0.66-1.25) mg/dL POC Glucose (mg/dL) 141 H (75-99) mg/dL Calcium 8.0 L (8.4-10.2) mg/dL AST 63 H (17-59) U/L ALT 113 H (21-72) U/L Total Protein 5.5 L (6.3-8.2) g/dL Albumin 2.8 L (3.5-5.0) g/dL 09/27/16 Range/Units 11:47 RBC (4.30-5.90) m/uL Hgb (13.0-17.5) gm/dL Plt Count (150-450) k/uL Lymphocytes # (1.0-4.8) k/uL Chloride (98-107) mmol/L Carbon Dioxide (22-30) mmol/L BUN (9-20) mg/dL Creatinine (0.66-1.25) mg/dL POC Glucose (mg/dL) 133 H (75-99) mg/dL Calcium (8.4-10.2) mg/dL AST (17-59) U/L ALT (21-72) U/L Total Protein (6.3-8.2) g/dL Albumin (3.5-5.0) g/dL Microbiology - Last 24 Hours (Table) 09/25/16 21:05 Blood Culture - Preliminary Blood No Growth after 24 hours 09/26/16 13:40 Urine Culture - Preliminary Urine,Clean Catch Chest x-ray: report reviewed CT scan - abdomen: report reviewed CT scan - pelvis: report reviewed US - abdomen: report reviewed Assessment and Plan (1) Thrombocytopenia Narrative/Plan: Pt has new onset thrombocytopenia in the setting of sepsis, no personal history but, has a family history. Laboratory work up will be ordered. Until results available, recommend platelet monitoring, pt is ok for procedures as long as platelets are above 50,000. Status: Acute
[2016-09-27 16:50] LABS: Glucose,Whole Blood 104 mg/dL (75-99)
--- NOTE | 2016-09-27 18:45 | P.PN ---
Progress Note - Text The patient feels better today. His right upper quadrant pain is improved. On exam is lesser stable. His abdomen is soft. His liver function tests have improved. Patiently tenderly scheduled for laparoscopic cholecystectomy in a.m.
[2016-09-27 20:54] LABS: Glucose,Whole Blood 130 mg/dL (75-99)
[2016-09-27] MEDS: NORTRIPTYLINE 25 MG CAP PO SCH (21:03)
[2016-09-28] MEDS: LEVOFLOXACIN 750MG-D5W PMX 750 MG in DEXTROSE/WATER 1 150ML.BAG IVPB SCH (01:18)
[2016-09-28 07:08] LABS: Glucose,Whole Blood 97 mg/dL (75-99)
[2016-09-28 07:14] LABS: Aty Lym Flag Slight; CH 31.8; CHCM 35.6; HCT 39.2 % (39.0-53.0); HDW 2.88; HGB 13.5 gm/dL (13.0-17.5); MCH 30.8 pg (25.0-35.0); MCHC 34.4 g/dL (31.0-37.0); MCV 89.7 fL (80.0-100.0); Mean Platelet Volume 8.2; RBC 4.37 m/uL (4.30-5.90); RDW 14.3 % (11.5-15.5); WBC 7.9 k/uL (3.8-10.6); WBC (Perox) 7.37
[2016-09-28 07:28] LABS: ALT 86 U/L (21-72); AST 40 U/L (17-59); Alkaline Phosphatase 68 U/L (38-126); Anion Gap 8 mmol/L; Blood Urea Nitrogen 14 mg/dL (9-20); Calcium 8.2 mg/dL (8.4-10.2); Carbon Dioxide 21 mmol/L (22-30); Chloride 113 mmol/L (98-107); Glucose 97 mg/dL (74-99); Non-African American GFR(MDRD) 58 (>60 ml/min/1.73 sqM); Potassium 3.8 mmol/L (3.5-5.1); Sodium 142 mmol/L (137-145); Total Bilirubin 0.7 mg/dL (0.2-1.3); Total Protein 5.7 g/dL (6.3-8.2)
[2016-09-28 07:29] LABS: INR 1.2 (<1.1); Partial Thromboplastin Time 27.7 sec (22.0-30.0); Prothrombin Time 11.7 sec (9.0-12.0)
[2016-09-28] MEDS: HEPARIN SODIUM,PORCINE 5,000 UNIT/ML 1 ML VIAL SQ SCH ×3 (08:27→15:35)
[2016-09-28] MEDS: ALLOPURINOL 100 MG TAB PO SCH ×2 (08:27→22:33)
[2016-09-28] MEDS: SODIUM CHLORIDE 0.9% 1,000 ML IV SCH ×3 (08:27→10:13)
[2016-09-28] MEDS: LIRAGLUTIDE 0.6 MG SQ SCH (08:27)
[2016-09-28] MEDS: ASPIRIN 81 MG CHEW PO SCH ×2 (08:27→22:29)
[2016-09-28] MEDS: TERAZOSIN 2 MG CAP PO SCH ×2 (08:28→22:27)
[2016-09-28] MEDS: DULoxetine HCL 60 MG CAPSULE.DR PO SCH (08:28)
[2016-09-28] MEDS: PANTOPRAZOLE 40 MG/10 ML VIAL IV SCH (08:31)
[2016-09-28] MEDS: LORazepam 1 MG TAB PO PRN ×2 (08:31→12:59)
[2016-09-28] MEDS: CARVEDILOL 12.5 MG TAB PO SCH ×2 (08:31→22:28)
[2016-09-28 08:58] LABS: Add Differential Manual Differential
[2016-09-28 09:00] LABS: Manual Review Performed; Nucleated Red Blood Cells 0 /100 WBC (0-0); Total Cells Counted 100
[2016-09-28 09:01] LABS: Crenated RBC Present; Toxic Granulation Present
[2016-09-28] MEDS: metroNIDAZOLE-NS PMX 500 MG in SALINE 1 100ML.BAG IVPB SCH ×3 (09:52→15:36)
--- NOTE | 2016-09-28 10:00 | P.PN ---
Subjective Patient is seen in follow-up for acute kidney injury on chronic kidney disease. 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 Patient presented to the hospital with back pain which was radiating down to his legs. He did have a CAT scan with IV contrast dye on September 25 which revealed sigmoid diverticulitis. He's also noted to have cholelithiasis. He's scheduled for laparoscopic cholecystectomy today. No vomiting or diarrhea. Denies chest pain or shortness of breath. Renal function is improving with creatinine down to 1.23 today. Vital signs are stable. General: The patient appeared well nourished and normally developed. HEENT: Head exam is unremarkable. Neck is without jugular venous distension. LUNGS: Lungs are clear to auscultation and percussion. Breath sounds decreased. HEART: Rate and Rhythm are regular. First and second heart sounds normal. No murmurs, rubs or gallops. ABDOMEN: Abdominal exam reveals normal bowel sounds. Non-tender and non- distended. No evidence of peritonitis. EXTREMITITES: No clubbing, cyanosis, or edema. Objective - Vital Signs Vital signs: Vital Signs Temp 98.2 F 09/28/16 07:00 Pulse 82 09/28/16 07:00 Resp 20 09/28/16 07:00 BP 153/82 09/28/16 07:00 Pulse Ox 95 09/28/16 07:00 Intake & Output 09/27/16 09/28/16 09/28/16 18:59 06:59 18:59 Intake Total 360 900 Balance 360 900 Intake: Intake, IV Titration 900 Amount Sodium Chloride 0.9% 1, 900 000 ml @ 75 mls/hr IV . [id number] [facility] Rx#:[id number] Oral 360 Other: Voiding Method Toilet Toilet Urinal Urinal # Voids 4 - Labs CBC & Chem 7: 09/28/16 06:49 09/28/16 06:49 Labs: Abnormal Lab Results - Last 24 Hours (Table) 09/27/16 09/27/16 09/27/16 Range/Units 11:47 16:48 20:50 Plt Count (150-450) k/uL Chloride (98-107) mmol/L Carbon Dioxide (22-30) mmol/L POC Glucose (mg/dL) 133 H 104 H 130 H (75-99) mg/dL Calcium (8.4-10.2) mg/dL ALT (21-72) U/L Total Protein (6.3-8.2) g/dL Albumin (3.5-5.0) g/dL 09/28/16 09/28/16 Range/Units 06:49 06:49 Plt Count 94 L (150-450) k/uL Chloride 113 H (98-107) mmol/L Carbon Dioxide 21 L (22-30) mmol/L POC Glucose (mg/dL) (75-99) mg/dL Calcium 8.2 L (8.4-10.2) mg/dL ALT 86 H (21-72) U/L Total Protein 5.7 L (6.3-8.2) g/dL Albumin 3.1 L (3.5-5.0) g/dL Microbiology - Last 24 Hours (Table) 09/25/16 21:05 Blood Culture - Preliminary Blood No Growth after 48 hours 09/26/16 13:40 Urine Culture - Final Urine,Clean Catch Assessment and Plan Plan: Assessment: #1. Nonoliguric acute kidney injury secondary to ischemic ATN secondary to sepsis and further worsened from the use of diuretics, TERRENCE inhibitor as well as NSAIDs. He also received IV dye on September 25. Creatinine peaked at 2.02 and is down to 1.23 today. No hematuria noted on urinalysis. #2. Chronic kidney disease stage III with baseline creatinine in the range of 1.3-1.4 secondary to biopsy-proven FSGS. #3. Metabolic acidosis secondary to acute kidney injury and lactic acidosis. #4. Severe sepsis secondary to sigmoid diverticulitis. #5. Hypertension with chronic kidney disease. Plan: I will decrease normal saline to 50 mL an hour. Avoid nephrotoxic agents and hypotensive episodes. Continue to hold diuretics. Resume lisinopril 20 mg once daily. Advance diet per surgery recommendations. Antibiotics per infectious disease recommendations. Scheduled for cholecystectomy today.
[2016-09-28] MEDS: LISINOPRIL 20 MG TAB PO SCH (10:13)
[2016-09-28] MEDS: MULTIVITAMINS, THERA 1 EACH TAB PO SCH (10:49)
[2016-09-28 11:42] LABS: Vitamin B12 782 pg/mL
[2016-09-28 11:43] LABS: Glucose,Whole Blood 117 mg/dL (75-99)
--- NOTE | 2016-09-28 12:16 | P.PN ---
Subjective 71-year-old male seen and evaluated. Currently sitting up in a chair. Patient is scheduled today for laparoscopic cholecystectomy by surgical service. This been no new events. The labs this morning were reviewed. Hemoglobin 13.5 the white count down to 7.9 platelets 94 the creatinine is 1.2 patient currently is denying any chest pain shortness of breath. Patient did have a CAT scan of the abdomen pelvis with contrast done on the which did show sigmoid diverticulitis Objective - Vital Signs Vital signs: Vital Signs Temp 98.2 F 09/28/16 07:00 Pulse 82 09/28/16 07:00 Resp 20 09/28/16 07:00 BP 153/82 09/28/16 07:00 Pulse Ox 95 09/28/16 07:00 Intake & Output 09/27/16 09/28/16 09/28/16 18:59 06:59 18:59 Intake Total 360 900 Balance 360 900 Intake: Intake, IV Titration 900 Amount Sodium Chloride 0.9% 1, 900 000 ml @ 75 mls/hr IV . [id number] [facility] Rx#:[id number] Oral 360 Other: Voiding Method Toilet Toilet Toilet Urinal Urinal # Voids 4 - Exam Physical exam Afebrile temp is 98.5. pleasant cooperative oriented 3 currently denying abdominal discomfort when questioning sitting up in a chair aware of the plan of care Lungs essentially clear adequate air movement Heart S1-S2 audible regular Abdomen soft no facial grimacing with palpitation to the abdominal wall bowel tones present reports of nausea vomiting currently nothing by mouth scheduled today for a lap cholecystectomy Extremities no edema noted - Labs CBC & Chem 7: 09/28/16 06:49 09/28/16 06:49 Labs: Abnormal Lab Results - Last 24 Hours (Table) 09/27/16 09/27/16 09/28/16 Range/Units 16:48 20:50 06:49 Plt Count (150-450) k/uL Chloride 113 H (98-107) mmol/L Carbon Dioxide 21 L (22-30) mmol/L POC Glucose (mg/dL) 104 H 130 H (75-99) mg/dL Calcium 8.2 L (8.4-10.2) mg/dL ALT 86 H (21-72) U/L Total Protein 5.7 L (6.3-8.2) g/dL Albumin 3.1 L (3.5-5.0) g/dL 09/28/16 09/28/16 Range/Units 06:49 11:41 Plt Count 94 L (150-450) k/uL Chloride (98-107) mmol/L Carbon Dioxide (22-30) mmol/L POC Glucose (mg/dL) 117 H (75-99) mg/dL Calcium (8.4-10.2) mg/dL ALT (21-72) U/L Total Protein (6.3-8.2) g/dL Albumin (3.5-5.0) g/dL Microbiology - Last 24 Hours (Table) 09/25/16 21:05 Blood Culture - Preliminary Blood No Growth after 48 hours 09/26/16 13:40 Urine Culture - Final Urine,Clean Catch Assessment and Plan Plan: Impression Present on admission febrile temp of 103, hypotensive systolic pressure in the 90s elevated lactic acid sepsis suspect due to sigmoid diverticulitis History of a colonoscopy done in July 2016 per patient report no acute findings New-onset thrombocytopenia platelets 75 were 170 in July 2016 New onset elevated liver enzymes Present on admission Acute renal failure secondary to ischemic ATN secondary to sepsis further worsening from the use of diuretics, TERRENCE inhibitor as well as 97 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 Present on admission elevated bilirubin level trending down CAT scan of the abdomen pelvis show mild sigmoid diverticulitis Metabolic acidosis secondary to acute kidney injury and lactic acid A recent dental implant 2 weeks prior CAT scan of the abdomen and pelvis shows possible cholecystitis with cholelithiasis Plan Oncology hematology recommends if platelets greater than 50 okay to proceed with a lap cholecystectomy today Continue IV antibiotics per infectious diseases recommendations currently on Flagyl and Levaquin IV fluid as ordered at 75 an hour Repeat the labs in the morning Further recommendations pending The above impression and plan of care have been discussed and directed by signing physician. Orly Reyes nurse practitioner acting as scribe for signing physician.
[2016-09-28 14:01] LABS: Free Kappa Lt Chain Qnt, Serum 3.52 mg/dL (0.33-1.94)
[2016-09-28] MEDS ORDERED: IV FLUID CONTINUATION 1,000 ML IV ONE (17:07)
[2016-09-28] MEDS ORDERED: ONDANSETRON 4 MG/2 ML VIAL IVP ONE (17:27)
[2016-09-28] MEDS ORDERED: HEPARIN SODIUM,PORCINE 5,000 UNIT/ML 1 ML VIAL SQ ONE (18:30)
[2016-09-28] MEDS ORDERED: LACTATED RINGERS 1,000 ML IV ONE ×2 (18:42→19:18)
[2016-09-28] MEDS ORDERED: ROCURONIUM BROMIDE 10 MG/ML 10 ML VIAL IV ONE (18:43)
[2016-09-28] MEDS ORDERED: LIDOCAINE 1% INJ 10MG/ML (20 ML MDV) ONE (18:43)
[2016-09-28] MEDS ORDERED: fentaNYL (PF) 50 MCG/ML 2 ML AMP ONE (18:43)
[2016-09-28] MEDS ORDERED: NEOSTIGMINE 1 MG/ML 10 ML VIAL ONE (18:43)
[2016-09-28] MEDS ORDERED: SUCCINYLCHOLINE CHLORIDE 100 MG/5 ML SYR IV ONE (18:43)
[2016-09-28] MEDS ORDERED: PROPOFOL 10 MG/ML 20 ML VIAL IV ONE (18:43)
[2016-09-28] MEDS ORDERED: diphenhydrAMINE 50 MG/ML 1 ML VIAL ONE (18:43)
[2016-09-28] MEDS ORDERED: GLYCOPYRROLATE 0.2 MG/ML 2 ML VIAL ONE (18:43)
[2016-09-28] MEDS ORDERED: KETOROLAC 30 MG/ML 1 ML VIAL ONE (18:43)
[2016-09-28] MEDS ORDERED: MIDAZOLAM 2 MG/2 ML VIAL ONE (18:43)
[2016-09-28] MEDS ORDERED: BUPIVACAIN-EPI 0.5%-1:200,000 30 ML VIAL SQ ONE (18:59)
--- NOTE | 2016-09-28 19:17 | P.OP ---
Date of Procedure: 09/28/16 Preoperative Diagnosis: Chronic cholecystitis Postoperative Diagnosis: Chronic cholecystitis Procedure(s) Performed: Laparoscopic cholecystectomy Implants: Anesthesia: MEREDITH Surgeon: Rusty Anaya Estimated Blood Loss (ml): 10 Pathology: other (Gallbladder) Condition: stable Disposition: PACU Indications for Procedure: Operative Findings: Description of Procedure: The patient was placed on the operating table. The patient received a general endotracheal tube anesthesia. The patients abdomen was prepped and draped in the usual sterile fashion. Through an infraumbilical stab incision, the fascia of the anterior abdominal wall was grasped with a pair of Kochers and then the Veress needle was placed in the peritoneal cavity. Position of the Veress needle was confirmed with positive drop test. The abdomen was then insufflated. After adequate insufflation, the 10 mm trocar was placed in the peritoneal cavity. Following this the laparoscope was placed in the peritoneal cavity. The patient was placed in the head-up, right side up position and then a 5 mm trocar was placed in the right lateral and right subcostal position under direct visualization. A 8 mm trocar was placed in the epigastric position. The gallbladder was grasped in the fundus and infundibulum. Traction on the gallbladder was placed in the lateral and the cephalad positions. The triangle of Calot was visualized.. The cystic duct was bluntly dissected until the union of the cystic duct and common bile duct was seen. The cystic duct was then divided and sealed with the Harmonic scissors. A PDS Endoloop was then placed throughout the cystic duct stump. The cystic artery divided and sealed with the Harmonic scissors. The gallbladder was then removed from the liver bed using Harmonic scissors. The gallbladder was then extracted through the epigastric port site. Operative field was checked for any bleeding spots and Harmonic scissors was used to coagulate the liver bed. The abdomen was irrigated. The trocars were removed. The skin was closed using interrupted 3-0 Vicryl suture. Dermabond dressing were applied. The patient tolerated the procedure well.
[2016-09-28] MEDS ORDERED: NALOXONE 0.4 MG/ML 1 ML VIAL IV PRN (19:18)
[2016-09-28] MEDS ORDERED: ACETAMINOPHEN TAB 325 MG TAB PO PRN (19:18)
[2016-09-28] MEDS ORDERED: HYDROcodone/APAP 5-325MG 1 EACH TAB PO PRN (19:18)
--- NOTE | 2016-09-28 20:23 | PN ---
DATE OF SERVICE: 09/27/2016 REASON FOR FOLLOWUP: Sepsis and possible ascending cholangitis. INTERVAL HISTORY: The patient is afebrile. The patient denies significant chest pain, shortness of breath or cough or any abdominal pain. No nausea, vomiting or any diarrhea. On examination, blood pressure is 123/78 with a pulse of 92, temperature 98.5. He is 96% on room air. General description is an elderly male up in the chair in no distress. RESPIRATORY SYSTEM: Unlabored breathing. Clear to auscultation anteriorly. HEART: S1, S2. Regular rate and rhythm. ABDOMEN: Soft. No tenderness. LABS: White count normalized to 9.0 with a BUN of 21, creatinine 1.42. Liver enzymes are slightly improved. DIAGNOSTIC IMPRESSION AND PLAN: Patient with sepsis; source is likely ascending cholangitis and possibly passage of a bile stone. The patient apparently has been evaluated by Surgery for possible cholecystectomy tomorrow. Continue with the Levaquin and Flagyl at this point. Continue supportive care. SINCERE
[2016-09-28 20:51] LABS: Glucose,Whole Blood 124 mg/dL (75-99)
[2016-09-28] MEDS: NORTRIPTYLINE 25 MG CAP PO SCH (22:27)
[2016-09-28] MEDS: KETOROLAC 30 MG/ML 1 ML VIAL IVP SCH (22:29)
[2016-09-28] MEDS: DOCUSATE 100 MG CAP PO SCH (22:34)
[2016-09-29] MEDS: HEPARIN SODIUM,PORCINE 5,000 UNIT/ML 1 ML VIAL SQ SCH ×4 (00:55→23:34)
[2016-09-29] MEDS: LEVOFLOXACIN 750MG-D5W PMX 750 MG in DEXTROSE/WATER 1 150ML.BAG IVPB SCH (00:56)
[2016-09-29] MEDS: metroNIDAZOLE-NS PMX 500 MG in SALINE 1 100ML.BAG IVPB SCH ×4 (00:56→23:28)
[2016-09-29] MEDS: KETOROLAC 30 MG/ML 1 ML VIAL IVP SCH ×2 (03:27→09:12)
[2016-09-29 07:26] LABS: Glucose,Whole Blood 91 mg/dL (75-99)
[2016-09-29 07:50] LABS: Potassium 3.9 mmol/L (3.5-5.1); Total Bilirubin 0.6 mg/dL (0.2-1.3); Total Protein 5.2 g/dL (6.3-8.2)
[2016-09-29 08:00] VITALS: RESP 16
[2016-09-29 08:36] LABS: CH 30.8; CHCM 34.2; HCT 35.8 % (39.0-53.0); HDW 2.97; HGB 12.8 gm/dL (13.0-17.5); MCH 32.4 pg (25.0-35.0); MCHC 35.7 g/dL (31.0-37.0); MCV 90.7 fL (80.0-100.0); Mean Platelet Volume 7.2; RBC 3.95 m/uL (4.30-5.90); RDW 14.2 % (11.5-15.5)
[2016-09-29] MEDS: LIRAGLUTIDE 0.6 MG SQ SCH ×2 (09:08→20:21)
[2016-09-29] MEDS: TERAZOSIN 2 MG CAP PO SCH ×2 (09:10→20:34)
[2016-09-29] MEDS: CARVEDILOL 12.5 MG TAB PO SCH ×2 (09:10→17:09)
[2016-09-29] MEDS: LISINOPRIL 20 MG TAB PO SCH (09:10)
[2016-09-29] MEDS: DULoxetine HCL 60 MG CAPSULE.DR PO SCH (09:10)
[2016-09-29] MEDS: PANTOPRAZOLE 40 MG/10 ML VIAL IV SCH (09:10)
[2016-09-29] MEDS: ALLOPURINOL 100 MG TAB PO SCH ×2 (09:10→20:33)
[2016-09-29] MEDS: DOCUSATE 100 MG CAP PO SCH ×3 (09:10→22:11)
--- NOTE | 2016-09-29 10:42 | P.PN ---
Subjective Patient is seen in follow-up for acute kidney injury on chronic kidney disease. 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 Patient presented to the hospital with back pain which was radiating down to his legs. He did have a CAT scan with IV contrast dye on September 25 which revealed sigmoid diverticulitis. He's also noted to have cholelithiasis and underwent laparoscopic cholecystectomy on September 28. No vomiting but does have loose bowel movements. Denies chest pain or shortness of breath. Renal function worse today with creatinine at 1.63. He's been receiving Toradol for pain. Vital signs are stable. General: The patient appeared well nourished and normally developed. HEENT: Head exam is unremarkable. Neck is without jugular venous distension. LUNGS: Lungs are clear to auscultation and percussion. Breath sounds decreased. HEART: Rate and Rhythm are regular. First and second heart sounds normal. No murmurs, rubs or gallops. ABDOMEN: Abdominal exam reveals normal bowel sounds. Non-tender and non- distended. No evidence of peritonitis. EXTREMITITES: No clubbing, cyanosis, or edema. Objective - Vital Signs Vital signs: Vital Signs Temp 97.5 F L 09/29/16 07:00 Pulse 77 09/29/16 07:00 Resp 16 09/29/16 07:00 BP 141/83 09/29/16 07:00 Pulse Ox 96 09/29/16 07:00 Intake & Output 09/28/16 09/29/16 09/29/16 18:59 06:59 18:59 Intake Total 1250 1380 Output Total 210 Balance 1250 1170 Intake: IV 1250 800 Intake, IV Titration 380 Amount Lactated Ringers 1,000 ml 80 @ 80 mls/hr IV .[id number] ONE Rx#:[id number] Sodium Chloride 0.9% 1, 300 000 ml @ 50 mls/hr IV . Q20H [facility] Rx#:[id number] Oral 200 Output: Urine 200 Estimated Blood Loss 10 Other: Voiding Method Toilet Toilet Urinal # Voids 2 - Labs CBC & Chem 7: 09/29/16 07:18 09/29/16 07:18 Labs: Abnormal Lab Results - Last 24 Hours (Table) 09/28/16 09/28/16 09/28/16 Range/Units 06:49 06:49 11:41 RBC (4.30-5.90) m/uL Hgb (13.0-17.5) gm/dL Hct (39.0-53.0) % Plt Count (150-450) k/uL Chloride (98-107) mmol/L Carbon Dioxide (22-30) mmol/L Creatinine (0.66-1.25) mg/dL POC Glucose (mg/dL) 117 H (75-99) mg/dL Calcium (8.4-10.2) mg/dL Total Protein (6.3-8.2) g/dL Total Protein (PEP) 5.5 L (6.2-8.2) g/dL Albumin (3.5-5.0) g/dL RBC Folate 814 H (280 - 791) ng/mL Free [place] LC, Quant 3.52 H (0.33-1.94) mg/dL 09/28/16 09/29/16 09/29/16 Range/Units 20:30 07:18 07:18 RBC 3.95 L (4.30-5.90) m/uL Hgb 12.8 L (13.0-17.5) gm/dL Hct 35.8 L (39.0-53.0) % Plt Count 102 L (150-450) k/uL Chloride 112 H (98-107) mmol/L Carbon Dioxide 19 L (22-30) mmol/L Creatinine 1.63 H (0.66-1.25) mg/dL POC Glucose (mg/dL) 124 H (75-99) mg/dL Calcium 8.0 L (8.4-10.2) mg/dL Total Protein 5.2 L (6.3-8.2) g/dL Total Protein (PEP) (6.2-8.2) g/dL Albumin 2.7 L (3.5-5.0) g/dL RBC Folate (280 - 791) ng/mL Free [place] LC, Quant (0.33-1.94) mg/dL Microbiology - Last 24 Hours (Table) 09/25/16 21:05 Blood Culture - Preliminary Blood No Growth after 72 hours Assessment and Plan Plan: Assessment: #1. Nonoliguric acute kidney injury secondary to ischemic ATN secondary to sepsis and further worsened from the use of diuretics, TERRENCE inhibitor as well as NSAIDs. He also received IV dye on September 25. Creatinine peaked at 2.02 this admission. It is 1.63 today. No hematuria noted on urinalysis. #2. Chronic kidney disease stage III with baseline creatinine in the range of 1.3-1.4 secondary to biopsy-proven FSGS. #3. Metabolic acidosis secondary to acute kidney injury and lactic acidosis. #4. Severe sepsis secondary to sigmoid diverticulitis. #5. Hypertension with chronic kidney disease. Plan: I will increase normal saline to be run at 75 mL an hour. Discontinue Toradol. Avoid nephrotoxic agents and hypotensive episodes. Continue to hold diuretics. Encouraged oral intake as tolerated. Antibiotics per infectious disease recommendations. Repeat electrolytes in the morning.
[2016-09-29] MEDS: ASPIRIN 81 MG CHEW PO SCH ×2 (10:55→23:32)
[2016-09-29] MEDS: SODIUM CHLORIDE 0.9% 1,000 ML IV SCH ×2 (11:18→16:26)
[2016-09-29 11:30] LABS: Glucose,Whole Blood 134 mg/dL (75-99)
--- NOTE | 2016-09-29 11:54 | P.PN ---
Subjective 71-year-old gentleman being seen and examined. Patient is postop day 1 done on September 28 laparoscopic cholecystectomy for chronic cholecystitis. Patient does report having abdominal bloating. Patient states he has been up ambulating in the akers. Is not passing any gas rectally is not belching continues on IV hydration. No nausea no vomiting no chest pain no shortness of breath The creatinine this morning 1.6. White count down to 6 hemoglobin stable at 12.8 Patients being followed by infectious disease, nephrology service as well as surgical service recommendations reviewed noted and appreciated. Blood and urine cultures have been negative to date Objective - Vital Signs Vital signs: Vital Signs Temp 97.5 F L 09/29/16 07:00 Pulse 77 09/29/16 07:00 Resp 16 09/29/16 07:00 BP 141/83 09/29/16 07:00 Pulse Ox 96 09/29/16 07:00 Intake & Output 09/28/16 09/29/16 09/29/16 18:59 06:59 18:59 Intake Total 1250 1380 Output Total 210 Balance 1250 1170 Intake: IV 1250 800 Intake, IV Titration 380 Amount Lactated Ringers 1,000 ml 80 @ 80 mls/hr IV .[id number] [facility] Rx#:[id number] Sodium Chloride 0.9% 1, 300 000 ml @ 50 mls/hr IV . Q20H [facility] Rx#:[id number] Oral 200 Output: Urine 200 Estimated Blood Loss 10 Other: Voiding Method Toilet Toilet Toilet Urinal Urinal # Voids 2 - Exam Physical exam Pleasant 71-year-old gentleman sitting in a chair oriented 3 Lungs essentially clear adequate air movement on room air sats are greater than 94% no cough noted Heart S1-S2 audible and regular no murmur denying chest pain Abdomen surgical sites dry no redness a few hypoactive bowel tones not distended surgical tenderness states urinating no stool tolerating diet Extremities no edema noted - Labs CBC & Chem 7: 09/29/16 07:18 09/29/16 07:18 Labs: Abnormal Lab Results - Last 24 Hours (Table) 09/28/16 09/28/16 09/28/16 Range/Units 06:49 06:49 20:30 RBC (4.30-5.90) m/uL Hgb (13.0-17.5) gm/dL Hct (39.0-53.0) % Plt Count (150-450) k/uL Chloride (98-107) mmol/L Carbon Dioxide (22-30) mmol/L Creatinine (0.66-1.25) mg/dL POC Glucose (mg/dL) 124 H (75-99) mg/dL Calcium (8.4-10.2) mg/dL Total Protein (6.3-8.2) g/dL Total Protein (PEP) 5.5 L (6.2-8.2) g/dL Albumin (3.5-5.0) g/dL RBC Folate 814 H (280 - 791) ng/mL Free [place] LC, Quant 3.52 H (0.33-1.94) mg/dL 09/29/16 09/29/16 09/29/16 Range/Units 07:18 07:18 11:27 RBC 3.95 L (4.30-5.90) m/uL Hgb 12.8 L (13.0-17.5) gm/dL Hct 35.8 L (39.0-53.0) % Plt Count 102 L (150-450) k/uL Chloride 112 H (98-107) mmol/L Carbon Dioxide 19 L (22-30) mmol/L Creatinine 1.63 H (0.66-1.25) mg/dL POC Glucose (mg/dL) 134 H (75-99) mg/dL Calcium 8.0 L (8.4-10.2) mg/dL Total Protein 5.2 L (6.3-8.2) g/dL Total Protein (PEP) (6.2-8.2) g/dL Albumin 2.7 L (3.5-5.0) g/dL RBC Folate (280 - 791) ng/mL Free [place] LC, Quant (0.33-1.94) mg/dL Microbiology - Last 24 Hours (Table) 09/25/16 21:05 Blood Culture - Preliminary Blood No Growth after 72 hours Assessment and Plan Plan: Impression Present on admission febrile temp of 103, hypotensive systolic pressure in the 90s elevated lactic acid sepsis suspect due to sigmoid diverticulitis History of a colonoscopy done in July 2016 per patient report no acute findings New-onset thrombocytopenia platelets 75 were 170 in July 2016 improving resolving New onset elevated liver enzymes Present on admission Acute renal failure secondary to ischemic ATN secondary to sepsis further worsening from the use of diuretics, TERRENCE inhibitor as well as 97 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 Present on admission elevated bilirubin level trending down CAT scan of the abdomen pelvis show mild sigmoid diverticulitis Metabolic acidosis secondary to acute kidney injury and lactic acid A recent dental implant 2 weeks prior CAT scan of the abdomen and pelvis shows possible cholecystitis with cholelithiasis Postop 09/28/2016 laparoscopic cholecystectomy for chronic cholecystitis Plan Continue postop surgical care per surgical service Increase activity Increase use of incentive spirometer Agree with nephrology's recommendations increase IV fluid to 75 an hour no Toradol, no NSAID Continue IV antibiotics per infectious diseases recommendations currently on Flagyl and Levaquin IV fluid as ordered at 75 an hour Repeat the labs in the morning Further recommendations pending The above impression and plan of care have been discussed and directed by signing physician. Orly Reyes nurse practitioner acting as scribe for signing physician.
[2016-09-29] MEDS: MULTIVITAMINS, THERA 1 EACH TAB PO SCH (12:00)
--- NOTE | 2016-09-29 12:52 | P.PN ---
Progress Note - Text The patient is resting in his bed. He has complaints of some incisional pain. On exam his vital signs are stable. His abdomen is soft. Status post laparoscopic cholecystectomy. The patient will be hopefully discharge home tomorrow.
[2016-09-29] MEDS: traMADol 50 MG TAB PO PRN ×2 (13:43→20:32)
[2016-09-29] MEDS: LORazepam 1 MG TAB PO PRN ×2 (15:03→22:24)
--- NOTE | 2016-09-29 15:24 | P.PN ---
Subjective Principal diagnosis: Cholecystitis and ascending cholangitis The patient is afebrile the patient is status post laparoscopic cholecystectomy with the patient has tolerated the procedure The patient currently denies having any chest pain shortness of breath or cough no significant abdominal pain no nausea vomiting or any diarrhea Objective - Vital Signs Vital signs: Vital Signs Temp 97.5 F L 09/29/16 07:00 Pulse 77 09/29/16 07:00 Resp 16 09/29/16 07:00 BP 141/83 09/29/16 07:00 Pulse Ox 96 09/29/16 07:00 Intake & Output 09/28/16 09/29/16 09/29/16 18:59 06:59 18:59 Intake Total 1250 1380 400 Output Total 210 Balance 1250 1170 400 Intake: IV 1250 800 Intake, IV Titration 380 Amount Lactated Ringers 1,000 ml 80 @ 80 mls/hr IV .[id number] ONE Rx#:[id number] Sodium Chloride 0.9% 1, 300 000 ml @ 75 mls/hr IV . [id number] [facility] Rx#:[id number] Oral 200 400 Output: Urine 200 Estimated Blood Loss 10 Other: Voiding Method Toilet Toilet Toilet Urinal Urinal # Voids 2 2 - Exam GENERAL DESCRIPTION: elderly male lying in bed in no distress RESPIRATORY SYSTEM: Unlabored breathing , decreased breath sounds at bases HEART: S1 S2 regular rate and rhythm ,no loud murmurs ABDOMEN: Soft , no tenderness EXTREMITIES: No edema feet - Labs CBC & Chem 7: 09/29/16 07:18 09/29/16 07:18 Labs: Abnormal Lab Results - Last 24 Hours (Table) 09/28/16 09/28/16 09/28/16 Range/Units 06:49 06:49 20:30 RBC (4.30-5.90) m/uL Hgb (13.0-17.5) gm/dL Hct (39.0-53.0) % Plt Count (150-450) k/uL Chloride (98-107) mmol/L Carbon Dioxide (22-30) mmol/L Creatinine (0.66-1.25) mg/dL POC Glucose (mg/dL) 124 H (75-99) mg/dL Calcium (8.4-10.2) mg/dL Total Protein (6.3-8.2) g/dL Albumin (3.5-5.0) g/dL Albumin (PEP) 3.26 L (3.80-4.90) g/dL Rzcis-2-Dpoarwjin 0.57 L (0.60-1.00) g/dL RBC Folate 814 H (280 - 791) ng/mL 09/29/16 09/29/16 09/29/16 Range/Units 07:18 07:18 11:27 RBC 3.95 L (4.30-5.90) m/uL Hgb 12.8 L (13.0-17.5) gm/dL Hct 35.8 L (39.0-53.0) % Plt Count 102 L (150-450) k/uL Chloride 112 H (98-107) mmol/L Carbon Dioxide 19 L (22-30) mmol/L Creatinine 1.63 H (0.66-1.25) mg/dL POC Glucose (mg/dL) 134 H (75-99) mg/dL Calcium 8.0 L (8.4-10.2) mg/dL Total Protein 5.2 L (6.3-8.2) g/dL Albumin 2.7 L (3.5-5.0) g/dL Albumin (PEP) (3.80-4.90) g/dL Mwmme-5-Canmatwcb (0.60-1.00) g/dL RBC Folate (280 - 791) ng/mL Microbiology - Last 24 Hours (Table) 09/25/16 21:05 Blood Culture - Preliminary Blood No Growth after 72 hours Assessment and Plan (1) Cholecystitis Status: Acute (2) Ascending cholangitis Status: Acute Plan: The patient at this time will continue on levaquin and Flagyl , will be able to finish therapy with oral Cipro and Flagyl for about 5-7 days on discharge
[2016-09-29 17:00] LABS: Glucose,Whole Blood 141 mg/dL (75-99)
[2016-09-29 20:11] LABS: Glucose,Whole Blood 168 mg/dL (75-99)
[2016-09-29] MEDS: NORTRIPTYLINE 25 MG CAP PO SCH (20:34)
[2016-09-30] MEDS: SODIUM CHLORIDE 0.9% 1,000 ML IV SCH (06:13)
[2016-09-30] MEDS ORDERED: metroNIDAZOLE 500 MG TAB PO SCH (08:00)
[2016-09-30] MEDS: HEPARIN SODIUM,PORCINE 5,000 UNIT/ML 1 ML VIAL SQ SCH (08:08)
[2016-09-30] MEDS: CARVEDILOL 12.5 MG TAB PO SCH (08:08)
[2016-09-30 08:09] LABS: CH 31.1; CHCM 34.8; HDW 2.99; HGB 13.8 gm/dL (13.0-17.5); MCH 31.8 pg (25.0-35.0); MCHC 35.5 g/dL (31.0-37.0); MCV 89.6 fL (80.0-100.0); Mean Platelet Volume 7.8; RBC 4.35 m/uL (4.30-5.90); RDW 14.3 % (11.5-15.5); WBC 6.4 k/uL (3.8-10.6)
[2016-09-30] MEDS: ASPIRIN 81 MG CHEW PO SCH (08:09)
[2016-09-30] MEDS: ALLOPURINOL 100 MG TAB PO SCH (08:09)
[2016-09-30] MEDS: DOCUSATE 100 MG CAP PO SCH (08:10)
[2016-09-30] MEDS: LISINOPRIL 20 MG TAB PO SCH (08:11)
[2016-09-30] MEDS: DULoxetine HCL 60 MG CAPSULE.DR PO SCH (08:11)
[2016-09-30] MEDS: TERAZOSIN 2 MG CAP PO SCH (08:11)
[2016-09-30 08:15] LABS: Glucose,Whole Blood 124 mg/dL (75-99)
[2016-09-30] MEDS: traMADol 50 MG TAB PO PRN (08:20)
[2016-09-30 08:24] LABS: Anion Gap 9 mmol/L; Blood Urea Nitrogen 19 mg/dL (9-20); Calcium 8.5 mg/dL (8.4-10.2); Carbon Dioxide 21 mmol/L (22-30); Chloride 110 mmol/L (98-107); Glucose 99 mg/dL (74-99); Non-African American GFR(MDRD) 51 (>60 ml/min/1.73 sqM); Potassium 3.8 mmol/L (3.5-5.1); Sodium 140 mmol/L (137-145)
[2016-09-30 08:25] VITALS: PULSE 89; TEMP 98
--- NOTE | 2016-09-30 08:38 | P.PN ---
Subjective Patient is seen in follow-up for acute kidney injury on chronic kidney disease. 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 Patient presented to the hospital with back pain which was radiating down to his legs. He did have a CAT scan with IV contrast dye on September 25 which revealed sigmoid diverticulitis. He's also noted to have cholelithiasis and underwent laparoscopic cholecystectomy on September 28. No vomiting but did have loose bowel movements. Denies chest pain or shortness of breath. Creatinine was elevated at 1.6 yesterday and is down to 1.37 today. He was receiving Toradol for pain which has been discontinued. Vital signs are stable. General: The patient appeared well nourished and normally developed. HEENT: Head exam is unremarkable. Neck is without jugular venous distension. LUNGS: Lungs are clear to auscultation and percussion. Breath sounds decreased. HEART: Rate and Rhythm are regular. First and second heart sounds normal. No murmurs, rubs or gallops. ABDOMEN: Abdominal exam reveals normal bowel sounds. Non-tender and non- distended. No evidence of peritonitis. EXTREMITITES: No clubbing, cyanosis, or edema. Objective - Vital Signs Vital signs: Vital Signs Temp 98 F 09/30/16 08:10 Pulse 89 09/30/16 08:10 Resp 16 09/30/16 08:10 BP 209/117 09/30/16 08:10 Pulse Ox 94 L 09/30/16 08:10 Intake & Output 09/29/16 09/30/16 09/30/16 18:59 06:59 18:59 Intake Total 400 1340 Balance 400 1340 Intake: Intake, IV Titration 600 Amount Sodium Chloride 0.9% 1, 600 000 ml @ 75 mls/hr IV . [id number] [facility] Rx#:[id number] Oral 400 740 Other: Voiding Method Toilet Toilet Urinal Urinal # Voids 2 2 - Labs CBC & Chem 7: 09/30/16 07:30 09/30/16 07:30 Labs: Abnormal Lab Results - Last 24 Hours (Table) 09/28/16 09/29/16 09/29/16 Range/Units 06:49 07:18 11:27 RBC 3.95 L (4.30-5.90) m/uL Hgb 12.8 L (13.0-17.5) gm/dL Hct 35.8 L (39.0-53.0) % Plt Count 102 L (150-450) k/uL Chloride (98-107) mmol/L Carbon Dioxide (22-30) mmol/L Creatinine (0.66-1.25) mg/dL POC Glucose (mg/dL) 134 H (75-99) mg/dL Albumin (PEP) 3.26 L (3.80-4.90) g/dL Qgynm-2-Yhuqrwkwm 0.57 L (0.60-1.00) g/dL 09/29/16 09/29/16 09/30/16 Range/Units 16:54 20:10 07:30 RBC (4.30-5.90) m/uL Hgb (13.0-17.5) gm/dL Hct (39.0-53.0) % Plt Count 111 L (150-450) k/uL Chloride (98-107) mmol/L Carbon Dioxide (22-30) mmol/L Creatinine (0.66-1.25) mg/dL POC Glucose (mg/dL) 141 H 168 H (75-99) mg/dL Albumin (PEP) (3.80-4.90) g/dL Jifir-2-Thgrqjgle (0.60-1.00) g/dL 09/30/16 09/30/16 Range/Units 07:30 08:11 RBC (4.30-5.90) m/uL Hgb (13.0-17.5) gm/dL Hct (39.0-53.0) % Plt Count (150-450) k/uL Chloride 110 H (98-107) mmol/L Carbon Dioxide 21 L (22-30) mmol/L Creatinine 1.37 H (0.66-1.25) mg/dL POC Glucose (mg/dL) 124 H (75-99) mg/dL Albumin (PEP) (3.80-4.90) g/dL Kyxsj-4-Sxrgyjned (0.60-1.00) g/dL Microbiology - Last 24 Hours (Table) 09/25/16 21:05 Blood Culture - Preliminary Blood No Growth after 96 hours Assessment and Plan Plan: Assessment: #1. Nonoliguric acute kidney injury secondary to ischemic ATN secondary to sepsis and further worsened from the use of diuretics, TERRENCE inhibitor as well as NSAIDs. He also received IV dye on September 25. Creatinine peaked at 2.02 this admission. It is 1.37 today. No hematuria noted on urinalysis. #2. Chronic kidney disease stage III with baseline creatinine in the range of 1.3-1.4 secondary to biopsy-proven FSGS. #3. Metabolic acidosis secondary to acute kidney injury and lactic acidosis. #4. Severe sepsis secondary to sigmoid diverticulitis. #5. Hypertension with chronic kidney disease. Plan: Hep-Lock IV fluids. Increase lisinopril to 40 mg daily. Discontinued Toradol. Avoid nephrotoxic agents and hypotensive episodes. Encouraged oral intake as tolerated. Antibiotics per infectious disease recommendations. Stable to be discharged home from nephrology standpoint. He will need to follow -up as an outpatient in the next 2 weeks.
[2016-09-30] MEDS ORDERED: LISINOPRIL 20 MG TAB PO SCH ×2 (09:00→21:00)
[2016-09-30] MEDS ORDERED: PANTOPRAZOLE 40 MG TABLET PO SCH (09:00)
[2016-09-30] MEDS: LIRAGLUTIDE 0.6 MG SQ SCH (10:51)
[2016-09-30] MEDS: MULTIVITAMINS, THERA 1 EACH TAB PO SCH (11:00)
[2016-09-30] MEDS: LORazepam 1 MG TAB PO PRN (11:11)
[2016-09-30] MEDS ORDERED: cefTRIAXone 2,000 MG in SODIUM CHLORIDE 0.9% 100 ML IVPB SCH (12:00)
[2016-09-30 12:20] LABS: Glucose,Whole Blood 149 mg/dL (75-99)
--- NOTE | 2016-09-30 12:29 | P.DS ---
Providers Date of admission: 09/26/16 00:20 Expected date of discharge: 09/30/16 Attending physician: hCris Triana Consults: 09/26/16 00:31 Consult Physician Stat Consulting Provider: Rusty Nieves Consult Reason/Comments: Diverticulitis, Elevated Liver Enzyme, Cholelithiasis Do you want consulting provider notified?: Yes, Notify in am 09/26/16 03:17 Consult Physician Routine Consulting Provider: Forrest Terrazas Consult Reason/Comments: sepsis Do you want consulting provider notified?: Yes 09/26/16 11:34 Consult Physician Stat Consulting Provider: Joann Ledbetter Consult Reason/Comments: Acute renal failure Do you want consulting provider notified?: Yes 09/26/16 14:35 Consult Physician Stat Consulting Provider: Jayesh Baumann Consult Reason/Comments: Low platelet new-onset Do you want consulting provider notified?: Yes Primary care physician: [facility] Course: 71-year-old gentleman presented on the day of admission to the emergency room on September 25 with a chief complaint of developing lower back pain. Patient stated the pain radiated down both legs. Patient stated he been working out in the yard most of the day he thought he pulled a muscle. Patient states the pain became unbearable. His had to activate the EMS system. Patient stated it was too much pain to move the pain was in the lower back In the emergency room patient was noted to have a temp of 103.4. white count of 4.1 today's white count is up to 14 lactic acid was 3.8 creatinine 1.3. Patient had a CAT scan of the abdomen pelvis in the emergency room with IV contrast in summary it did show mild sigmoid diverticulitis. denies any burning on urination frequency urgency. Patient denies any unintentional weight loss weight gain or change in bowel habits Patient states he did have a colonoscopy done in July 2016 he was told at that time everything was fine. Additionally patient stated that he had dental implant put in about 2 weeks ago he did complete a course of antibiotics clindamycin. In the emergency room the patient did receive 2 liters of IV fluid given for a systolic blood pressure in the 90s. Patient stated that he was not experiencing any chest pain no shortness of breath. He stated that he had been having some frequent loose stools at home. Patient denied any abdominal pain when questioning. Subsequent the patient was admitted to the services of the attending with infectious disease and nephrology consultation requested On arrival the patient's platelet count was 75 AST and ALT were elevated AST was 339, ALT to 65. Amylase 82. Lipase 170. Total bili 1.8. The at the bedside did bring medical records records reviewing prior labs platelet count in July was 170 in the AST and ALT were not elevated they were within the normal limit Patient was monitored throughout the hospitalization by infectious disease, surgical service, nephrology,. Patient was seen by Dr. nieves patient did show evidence by a CAT scan of diverticulitis as well as possible cholecystitis with cholelithiasis. Patient was noted to have elevated liver function studies on admission. Patient elected to proceed on September 28 with a lap discuss the cholecystectomy for chronic cholecystitis patient was treated by infectious disease for. Ascending cholangitis patient was started on IV antibiotic Levaquin and Flagyl monitoring labs closely was a noted improvement in the liver function studies as well as a platelet and renal status. The blood and urine culture showed no growth to date on the day of discharge patient was reportedly experiencing muscle body aches and was concerned that the Levaquin was contributing to it. Dr. Terrazas infectious disease recommended that the Levaquin be stopped and changed to Rocephin patient tolerated the Rocephin could be discharged on Ceftin and Flagyl this was discussed with the patient did agree with the plan of care. Impression discharge diagnosis Present on admission febrile temp of 103, hypotensive systolic pressure in the 90s elevated lactic acid sepsis suspect due to Ascending cholangitis and cholecystitis History of a colonoscopy done in July 2016 per patient report no acute findings New-onset thrombocytopenia platelets 75 were 170 in July 2016 improving resolving New onset elevated liver enzymes resolved Present on admission Acute renal failure secondary to ischemic ATN secondary to sepsis further worsening from the use of diuretics, TERRENCE inhibitor as well as 97 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 Present on admission elevated bilirubin level trending down CAT scan of the abdomen pelvis show mild sigmoid diverticulitis Metabolic acidosis secondary to acute kidney injury and lactic acid A recent dental implant 2 weeks prior CAT scan of the abdomen and pelvis shows possible cholecystitis with cholelithiasis Postop 09/28/2016 laparoscopic cholecystectomy for chronic cholecystitis Ascending cholangitis with acute cholecystitis CAT scan abdomen and pelvis show possible sigmoid diverticulitis The above impression and plan of care have been discussed and directed by signing physician. Orly Reyes nurse practitioner acting as scribe for signing physician. Patient Condition at Discharge: Stable Plan - Discharge Summary New Discharge Prescriptions: New metroNIDAZOLE [Flagyl] 500 mg PO Q8HR #21 tab HYDROcodone/APAP 5-325MG [Keavy 5-325] 1 each PO Q4HR PRN #30 tab PRN Reason: Moderate Pain Cefuroxime Axetil [Ceftin] 500 mg PO BID #14 tab Continue Ubidecarenone [Co Q-10] 100 mg PO DAILY Multivitamins, Thera [Multivitamin (formulary)] 1 tab PO DAILY Aspirin [Adult Low Dose Aspirin EC] 81 mg PO BID Nitroglycerin Sl Tabs [Nitrostat] 0.4 mg SUBLINGUAL Q5M PRN PRN Reason: Chest Pain LORazepam [Ativan] 1 mg PO DAILY PRN PRN Reason: Anxiety Ergocalciferol [Vitamin D2 (DRISDOL)] 50,000 unit PO Q14D Rosuvastatin [Crestor] 10 mg PO HS Nortriptyline HCl [Pamelor] 50 mg PO HS Liraglutide [Victoza 2-Seferino] 0.6 mg SQ DAILY DULoxetine HCL [Cymbalta] 60 mg PO DAILY Allopurinol [Zyloprim] 100 mg PO BID Lisinopril [Zestril] 40 mg PO DAILY Furosemide [Lasix] 40 mg PO MOFR Furosemide [Lasix] 20 mg PO SUTUWETHSA Terazosin HCl 2 mg PO BID Carvedilol [Coreg] 25 mg PO BID Bladen-3/Dha/Epa/Fish Oil [Fish Oil 1,360 mg Softgel] 1 cap PO DAILY Discharge Medication List Allopurinol [Zyloprim] 100 mg PO BID 09/25/16 [History] Aspirin [Adult Low Dose Aspirin EC] 81 mg PO BID 09/25/16 [History] Carvedilol [Coreg] 25 mg PO BID 09/25/16 [History] DULoxetine HCL [Cymbalta] 60 mg PO DAILY 09/25/16 [History] Ergocalciferol [Vitamin D2 (DRISDOL)] 50,000 unit PO Q14D 09/25/16 [History] Furosemide [Lasix] 20 mg PO SUTUWETHSA 09/25/16 [History] Furosemide [Lasix] 40 mg PO MOFR 09/25/16 [History] LORazepam [Ativan] 1 mg PO DAILY PRN 09/25/16 [History] Liraglutide [Victoza 2-Seferino] 0.6 mg SQ DAILY 09/25/16 [History] Lisinopril [Zestril] 40 mg PO DAILY 09/25/16 [History] Multivitamins, Thera [Multivitamin (formulary)] 1 tab PO DAILY 09/25/16 [History ] Nitroglycerin Sl Tabs [Nitrostat] 0.4 mg SUBLINGUAL Q5M PRN 09/25/16 [History] Nortriptyline HCl [Pamelor] 50 mg PO HS 09/25/16 [History] Bladen-3/Dha/Epa/Fish Oil [Fish Oil 1,360 mg Softgel] 1 cap PO DAILY 09/25/16 [ History] Rosuvastatin [Crestor] 10 mg PO HS 09/25/16 [History] Terazosin HCl 2 mg PO BID 09/25/16 [History] Ubidecarenone [Co Q-10] 100 mg PO DAILY 09/25/16 [History] Cefuroxime Axetil [Ceftin] 500 mg PO BID #14 tab 09/30/16 [Rx] HYDROcodone/APAP 5-325MG [Keavy 5-325] 1 each PO Q4HR PRN #30 tab 09/30/16 [Rx] metroNIDAZOLE [Flagyl] 500 mg PO Q8HR #21 tab 09/30/16 [Rx] Follow up Appointment(s)/Referral(s): Samantha Morales MD [STAFF PHYSICIAN] - 2 Weeks (Dr. Morales's office will call patient with an appointment date and time.) Arnaud Gonsalez MD [Primary Care Provider] - 1-2 days (Per Physician office the patient or patients family are to call and make follow up appointment. ) Rusty Nieves MD [STAFF PHYSICIAN] - 1 Week Patient Instructions/Handouts: Diverticulitis (DC), Sepsis (GEN), Thrombocytopenia (DC) Activity/Diet/Wound Care/Special Instructions: No submersion in water such as swimming pool, hot tub, leg for at least 7 days No lifting over 10 pounds May shower within 24 hours after being discharged Discharge Disposition: HOME SELF-CARE
[2016-09-30 13:26] VITALS: BP 186/90
--- NOTE | 2016-09-30 16:35 | P.PN ---
Subjective Principal diagnosis: Choleycystitis, thrombocytopenia Pt is feeling good post lap choley, he is getting ready to be discharged, able to eat and drink, no nausea, vomiting, diarrhea or abd pain. Objective - Vital Signs Vital signs: Vital Signs Temp 98 F 09/30/16 08:10 Pulse 89 09/30/16 11:10 Resp 16 09/30/16 08:10 BP 186/90 09/30/16 13:26 Pulse Ox 94 L 09/30/16 08:10 Intake & Output 09/29/16 09/30/16 09/30/16 18:59 06:59 18:59 Intake Total 400 1340 100 Balance 400 1340 100 Intake: Intake, IV Titration 600 100 Amount Sodium Chloride 0.9% 1, 600 000 ml @ 75 mls/hr IV . [id number] [facility] Rx#:[id number] cefTRIAXone 2,000 mg In 100 Sodium Chloride 0.9% 100 ml @ 100 mls/hr IVPB Q24H [facility] Rx#:[id number] Oral 400 740 Other: Voiding Method Toilet Toilet Urinal Urinal # Voids 2 2 2 - Constitutional General appearance: Present: average body habitus, cooperative, no acute distress - EENT Eyes: Present: anicteric sclerae - Peripheral edema leg Peripheral Edema: bilateral: None - Neurologic Neurologic: Present: CNII-XII intact - Musculoskeletal Musculoskeletal: Present: strength equal bilaterally - Psychiatric Psychiatric: Present: A&O x's 3, appropriate affect, intact judgment & insight - Labs CBC & Chem 7: 09/30/16 07:30 09/30/16 07:30 Labs: Abnormal Lab Results - Last 24 Hours (Table) 09/29/16 09/29/16 09/30/16 Range/Units 16:54 20:10 07:30 Plt Count 111 L (150-450) k/uL Chloride (98-107) mmol/L Carbon Dioxide (22-30) mmol/L Creatinine (0.66-1.25) mg/dL POC Glucose (mg/dL) 141 H 168 H (75-99) mg/dL 09/30/16 09/30/16 09/30/16 Range/Units 07:30 08:11 12:14 Plt Count (150-450) k/uL Chloride 110 H (98-107) mmol/L Carbon Dioxide 21 L (22-30) mmol/L Creatinine 1.37 H (0.66-1.25) mg/dL POC Glucose (mg/dL) 124 H 149 H (75-99) mg/dL Microbiology - Last 24 Hours (Table) 09/25/16 21:05 Blood Culture - Preliminary Blood No Growth after 96 hours Assessment and Plan (1) Thrombocytopenia Narrative/Plan: Pt plt count is spontaneously recovering. Suspect thrombocytopenia due to consumption from septic condition. Some of the labs that were ordered are still pending but so far this is the most likely diagnosis. Reviewed this with pt and . Will contact pt, if needed, based on finalization of lab work. Status: Acute
[2016-09-30] MEDS ORDERED: LEVOFLOXACIN 750 MG TAB PO SCH (22:00)
--- NOTE | 2016-10-01 05:43 | PN ---
DATE OF SERVICE: 09/28/2016 Reason for followup is likely ascending cholangitis. INTERVAL HISTORY: The patient is afebrile. He is feeling better. Breathing comfortably. Denies significant chest pain. No shortness of breath, cough. No abdominal pain. No nausea, vomiting or any diarrhea. On examination, blood pressure is 153/82 with a pulse of 82, temperature 98.2. He is 95% on room air. General description is an elderly male up in the chair in no distress. RESPIRATORY SYSTEM: Unlabored breathing. Clear to auscultation anteriorly. HEART: S1 and S2, regular rate and rhythm. ABDOMEN: Soft, no tenderness. LABS: Hemoglobin 13.5, white count 7.9 with a BUN of 14, creatinine 1.23. DIAGNOSTIC IMPRESSION: Patient admitted to the hospital with sepsis, source is likely cholecystitis with possible ascending cholangitis. The patient did have improvement. Levaquin and Flagyl will be continued. Awaiting cholecystectomy. Plan for possible oral antibiotic on discharge. Continue supportive care. SINCERE
[2016-10-01] MEDS ORDERED: LISINOPRIL 20 MG TAB PO SCH (09:00)
--- NOTE | 2016-10-01 21:44 | P.PN ---
Subjective Principal diagnosis: Cholecystitis and ascending cholangitis The patient is afebrile the patient is status post laparoscopic cholecystectomy which the patient has tolerated without any problem , The patient denies having any chest pain shortness of breath or cough no significant abdominal pain no nausea vomiting or any diarrhea , has been c/o some body aches and thinking may be caused by Levaquin Objective - Vital Signs Vital signs: Vital Signs Temp 98 F 09/30/16 08:10 Pulse 89 09/30/16 11:10 Resp 16 09/30/16 08:10 BP 186/90 09/30/16 13:26 Pulse Ox 94 L 09/30/16 08:10 Intake & Output 09/29/16 09/30/16 09/30/16 18:59 06:59 18:59 Intake Total 400 1340 100 Balance 400 1340 100 Intake: Intake, IV Titration 600 100 Amount Sodium Chloride 0.9% 1, 600 000 ml @ 75 mls/hr IV . [id number] [facility] Rx#:[id number] cefTRIAXone 2,000 mg In 100 Sodium Chloride 0.9% 100 ml @ 100 mls/hr IVPB Q24H [facility] Rx#:[id number] Oral 400 740 Other: Voiding Method Toilet Toilet Urinal Urinal # Voids 2 2 2 - Exam GENERAL DESCRIPTION: elderly male lying in bed in no distress RESPIRATORY SYSTEM: Unlabored breathing , decreased breath sounds at bases HEART: S1 S2 regular rate and rhythm ,no loud murmurs ABDOMEN: Soft , no tenderness EXTREMITIES: No edema feet - Labs CBC & Chem 7: 09/30/16 07:30 09/30/16 07:30 Labs: Abnormal Lab Results - Last 24 Hours (Table) 09/29/16 09/29/16 09/30/16 Range/Units 16:54 20:10 07:30 Plt Count 111 L (150-450) k/uL Chloride (98-107) mmol/L Carbon Dioxide (22-30) mmol/L Creatinine (0.66-1.25) mg/dL POC Glucose (mg/dL) 141 H 168 H (75-99) mg/dL 09/30/16 09/30/16 09/30/16 Range/Units 07:30 08:11 12:14 Plt Count (150-450) k/uL Chloride 110 H (98-107) mmol/L Carbon Dioxide 21 L (22-30) mmol/L Creatinine 1.37 H (0.66-1.25) mg/dL POC Glucose (mg/dL) 124 H 149 H (75-99) mg/dL Microbiology - Last 24 Hours (Table) 09/25/16 21:05 Blood Culture - Preliminary Blood No Growth after 96 hours Assessment and Plan (1) Cholecystitis Status: Acute (2) Ascending cholangitis Status: Acute Plan: The patient aantibiotic was switched to Rocephin which he tolerated and discharge antibiotic will be ceftin and Flagyl for about 5-7 days on discharge
== END 2016-09-30 15:05 | disposition home or self-care (01) | DRG 853 ==
LOC: EC 20:40 → 5MS5E 09-26 00:20
PROVIDERS: ADMIT Family Medicine; ATTEND Family Medicine
PROC: 0FT44ZZ Resection of Gallbladder, Percutaneous Endoscopic Approach (ICD-10-PCS; principal; 2016-09-28 07:30)
DX: A41.9 Sepsis, unspecified organism (principal); N17.0 Acute kidney failure with tubular necrosis; E87.2 Acidosis; K83.0 Cholangitis; K80.12 Calculus of gallbladder with acute and chronic cholecystitis without obstruction; D69.59 Other secondary thrombocytopenia; I95.9 Hypotension, unspecified; E11.22 Type 2 diabetes mellitus with diabetic chronic kidney disease; K57.32 Diverticulitis of large intestine without perforation or abscess without bleeding; N18.3 Chronic kidney disease, stage 3 (moderate); I12.9 Hypertensive chronic kidney disease with stage 1 through stage 4 chronic kidney disease, or unspecified chronic kidney disease; R65.20 Severe sepsis without septic shock; T46.4X5A Adverse effect of angiotensin-converting-enzyme inhibitors, initial encounter; T39.315A Adverse effect of propionic acid derivatives, initial encounter; I25.10 Atherosclerotic heart disease of native coronary artery without angina pectoris; M10.9 Gout, unspecified; R00.0 Tachycardia, unspecified; I25.2 Old myocardial infarction; M79.7 Fibromyalgia; E78.5 Hyperlipidemia, unspecified; R74.8 Abnormal levels of other serum enzymes; E66.9 Obesity, unspecified; F41.9 Anxiety disorder, unspecified; Z95.5 Presence of coronary angioplasty implant and graft; Z79.82 Long term (current) use of aspirin; Z79.899 Other long term (current) drug therapy; Z79.84 Long term (current) use of oral hypoglycemic drugs; Z83.2 Family history of diseases of the blood and blood-forming organs and certain disorders involving the immune mechanism; Z68.29 Body mass index [BMI] 29.0-29.9, adult; Z98.811 Dental restoration status; Z88.0 Allergy status to penicillin; Z88.8 Allergy status to other drugs, medicaments and biological substances; Z91.048 Other nonmedicinal substance allergy status
CPT/HCPCS: 36415; 71020; 74177; 76705; 80048; 80053; 80074; 81001; 82150; 82607; 82747; 83605; 83690; 83883; 84165; 85025; 85027; 85610; 85730; 86334; 87040; 87086; 88304; 93005; 96360; 99285

== ENCOUNTER 2016-11-11 18:54 | Inpatient (IN) | payer MEDICARE, BC ==
[2016-11-11] MEDS ORDERED: ACETAMINOPHEN TAB 325 MG TAB PO STA (19:33)
[2016-11-11] MEDS ORDERED: LEVOFLOXACIN 750MG-D5W PMX 750 MG in DEXTROSE/WATER 1 150ML.BAG IVPB STA ×2 (19:33→22:02)
--- NOTE | 2016-11-11 19:36 | ED ---
Fever HPI - General Chief Complaint: Fever Stated Complaint: Fever aches Time Seen by Provider: 11/11/16 19:18 Source: patient Mode of arrival: ambulatory Limitations: no limitations - History of Present Illness Initial Comments: This patient is a 71-year-old man who presents to be evaluated for fever, chills , myalgias and headache. The patient states he was in his usual state of health until approximately 4-5 hours ago. He and his had been at [employer] and he noted he was developing some myalgias, had a mild headache and was starting to get chills. Over the next couple of hours he noted that he had developed fever and his measured to be greater than 101. He presents here for evaluation. At the end of September the patient did have an episode of sepsis that was related to gall bladder and he was admitted here for cholecystectomy by Dr. Anaya. The patient states that he will then was treated for a suspected pneumonia with a course of ciprofloxacin, but he has been doing well for about 2-3 weeks now. MD Complaint: fever Onset/Timin -: hour(s) Temperature Source: oral Associated Symptoms: chills, myalgias, headache Treatments Prior to Arrival: none - Related Data Home Medications Medication Instructions Recorded Confirmed Allopurinol [Zyloprim] 100 mg PO BID 09/25/16 11/11/16 Aspirin [Adult Low Dose Aspirin EC] 162 mg PO DAILY 09/25/16 11/11/16 Carvedilol [Coreg] 25 mg PO BID 09/25/16 11/11/16 DULoxetine HCL [Cymbalta] 60 mg PO DAILY 09/25/16 11/11/16 Ergocalciferol [Vitamin D2 50,000 unit PO Q14D 09/25/16 11/11/16 (DRISDOL)] Furosemide [Lasix] 20 mg PO SUTUWETHSA 09/25/16 11/11/16 LORazepam [Ativan] 1 mg PO TID PRN 09/25/16 11/11/16 Liraglutide [Victoza 2-Seferino] 0.6 mg SQ DAILY 09/25/16 11/11/16 Lisinopril [Zestril] 40 mg PO DAILY 09/25/16 11/11/16 Multivitamins, Thera [Multivitamin 1 tab PO DAILY 09/25/16 11/11/16 (formulary)] Nitroglycerin Sl Tabs [Nitrostat] 0.4 mg SUBLINGUAL Q5M PRN 09/25/16 11/11/16 Nortriptyline HCl [Pamelor] 50 mg PO HS 09/25/16 11/11/16 [place]-3/Dha/Epa/Fish Oil [Fish Oil 1 cap PO DAILY 09/25/16 11/11/16 1,360 mg Softgel] Rosuvastatin [Crestor] 10 mg PO HS 09/25/16 11/11/16 Terazosin HCl 2 mg PO BID 09/25/16 11/11/16 Ubidecarenone [Co Q-10] 100 mg PO DAILY 09/25/16 11/11/16 Furosemide [Lasix] 40 mg PO MOFR 11/11/16 11/11/16 Previous Rx's Medication Instructions Recorded Levofloxacin [Levaquin] 750 mg PO DAILY #7 tab 11/11/16 Allergies Allergy/AdvReac Type Severity Reaction Status Date / Time adhesive tape Allergy Rash/Hives Verified 11/11/16 19:50 Penicillins Allergy Itching Verified 11/11/16 19:50 prednisone AdvReac DEPRESSION Verified 11/11/16 19:50 WITH LARGE DOSES Review of Systems ROS Statement: Those systems with pertinent positive or pertinent negative responses have been documented in the HPI. ROS Other: All systems not noted in ROS Statement are negative. Constitutional: Reports: fever, chills. Denies: weakness ENT: Denies: ear pain, throat pain, congestion Respiratory: Reports: cough. Denies: dyspnea, wheezes, hemoptysis Cardiovascular: Denies: chest pain, palpitations, edema, syncope Gastrointestinal: Denies: abdominal pain, nausea, vomiting, diarrhea, melena, hematochezia Genitourinary: Denies: urgency, dysuria, hematuria Musculoskeletal: Denies: back pain Skin: Denies: rash Neurological: Denies: headache, weakness, numbness Past Medical History Past Medical History: Diabetes Mellitus, Fibromyalgia, Hyperlipidemia, Hypertension, Myocardial Infarction ([place]), Renal Disease Last Myocardial Infarction Date:: 2010 History of Any Multi-Drug Resistant Organisms: None Reported Past Surgical History: Adenoidectomy, Heart Catheterization With Stent Past Anesthesia/Blood Transfusion Reactions: No Reported Reaction Date of Last Stent Placement:: 2010 Past Psychological History: Anxiety Smoking Status: Never smoker Past Alcohol Use History: None Reported Past Drug Use History: None Reported - Past Family History Father Family Medical History: Blood Disorder (thrombocytopenia, had splenectomy) Mother Family Medical History: Cancer General Exam Limitations: no limitations General appearance: alert, in no apparent distress Head exam: Present: atraumatic, normocephalic Eye exam: Present: normal appearance. Absent: scleral icterus, conjunctival injection ENT exam: Present: mucous membranes dry Neck exam: Present: normal inspection, full ROM. Absent: meningismus Respiratory exam: Present: rales (Right base). Absent: respiratory distress, wheezes, rhonchi, stridor, decreased breath sounds, prolonged expiratory Cardiovascular Exam: Present: normal rhythm, tachycardia (Rate approximately 136 bpm), normal heart sounds. Absent: systolic murmur, diastolic murmur, rubs , gallop GI/Abdominal exam: Present: soft, normal bowel sounds. Absent: distended, tenderness, guarding, rebound, mass, pulsatile mass, hernia Extremities exam: Present: normal inspection, normal capillary refill. Absent: pedal edema, calf tenderness Back exam: Present: normal inspection. Absent: CVA tenderness (R), CVA tenderness (L) Neurological exam: Present: alert Psychiatric exam: Present: normal affect Skin exam: Present: warm, dry, intact, normal color. Absent: rash, cyanosis, diaphoretic, erythema, petechiae, pallor, mottled Course Vital Signs 11/11/16 11/11/16 11/11/16 19:03 20:00 20:26 Temperature 100.0 F H 102.5 F H Pulse Rate 152 H 130 H 121 H Respiratory 18 16 20 Rate Blood Pressure 128/73 114/67 106/60 O2 Sat by Pulse 96 96 97 Oximetry 11/11/16 11/11/16 11/11/16 20:46 21:57 21:58 Temperature 100.7 F H 100.3 F H Pulse Rate 119 H 111 H Respiratory 18 18 Rate Blood Pressure 101/57 83/53 93/63 O2 Sat by Pulse 97 94 L Oximetry 11/11/16 22:44 Temperature 98.9 F Pulse Rate 101 H Respiratory 18 Rate Blood Pressure 111/64 O2 Sat by Pulse 64 L Oximetry Medical Decision Making - Lab Data Result diagrams: 11/11/16 19:30 11/11/16 19:30 Lab Results 11/11/16 11/11/16 11/11/16 Range/Units 19:30 19:30 19:30 WBC 7.3 (3.8-10.6) k/uL RBC 5.00 (4.30-5.90) m/uL Hgb 15.7 (13.0-17.5) gm/dL Hct 46.0 (39.0-53.0) % MCV 92.0 (80.0-100.0) fL MCH 31.4 (25.0-35.0) pg MCHC 34.1 (31.0-37.0) g/dL RDW 14.9 (11.5-15.5) % Plt Count 109 L (150-450) k/uL Neutrophils % 93 % Lymphocytes % 4 % Monocytes % 2 % Eosinophils % 1 % Basophils % 0 % Neutrophils # 6.8 (1.3-7.7) k/uL Lymphocytes # 0.3 L (1.0-4.8) k/uL Monocytes # 0.1 (0-1.0) k/uL Eosinophils # 0.0 (0-0.7) k/uL Basophils # 0.0 (0-0.2) k/uL PT (9.0-12.0) sec INR (<1.2) APTT (22.0-30.0) sec Sodium 137 (137-145) mmol/L Potassium 4.4 (3.5-5.1) mmol/L Chloride 103 (98-107) mmol/L Carbon Dioxide 24 (22-30) mmol/L Anion Gap 10 mmol/L BUN 23 H (9-20) mg/dL Creatinine 1.43 H (0.66-1.25) mg/dL Est GFR (MDRD) Af Amer 59 (>60 ml/min/1.73 sqM) Est GFR (MDRD) Non-Af 49 (>60 ml/min/1.73 sqM) Glucose 164 H (74-99) mg/dL Plasma Lactic Acid Axel 1.9 (0.7-2.0) mmol/L Calcium 9.5 (8.4-10.2) mg/dL Total Bilirubin 1.0 (0.2-1.3) mg/dL AST 80 H (17-59) U/L ALT 90 H (21-72) U/L Alkaline Phosphatase 80 (38-126) U/L Troponin I (0.000-0.034) ng/mL Total Protein 7.1 (6.3-8.2) g/dL Albumin 4.3 (3.5-5.0) g/dL Urine Color Urine Appearance (Clear) Urine pH (5.0-8.0) Ur Specific [place] (1.001-1.035) Urine Protein (Negative) Urine Glucose (UA) (Negative) Urine Ketones (Negative) Urine Blood (Negative) Urine Nitrite (Negative) Urine Bilirubin (Negative) Urine Urobilinogen (<2.0) mg/dL Ur Leukocyte Esterase (Negative) 11/11/16 11/11/16 11/11/16 Range/Units 19:30 19:30 20:04 WBC (3.8-10.6) k/uL RBC (4.30-5.90) m/uL Hgb (13.0-17.5) gm/dL Hct (39.0-53.0) % MCV (80.0-100.0) fL MCH (25.0-35.0) pg MCHC (31.0-37.0) g/dL RDW (11.5-15.5) % Plt Count (150-450) k/uL Neutrophils % % Lymphocytes % % Monocytes % % Eosinophils % % Basophils % % Neutrophils # (1.3-7.7) k/uL Lymphocytes # (1.0-4.8) k/uL Monocytes # (0-1.0) k/uL Eosinophils # (0-0.7) k/uL Basophils # (0-0.2) k/uL PT 10.6 (9.0-12.0) sec INR 1.1 (<1.2) APTT 21.1 L (22.0-30.0) sec Sodium (137-145) mmol/L Potassium (3.5-5.1) mmol/L Chloride (98-107) mmol/L Carbon Dioxide (22-30) mmol/L Anion Gap mmol/L BUN (9-20) mg/dL Creatinine (0.66-1.25) mg/dL Est GFR (MDRD) Af Amer (>60 ml/min/1.73 sqM) Est GFR (MDRD) Non-Af (>60 ml/min/1.73 sqM) Glucose (74-99) mg/dL Plasma Lactic Acid Axel (0.7-2.0) mmol/L Calcium (8.4-10.2) mg/dL Total Bilirubin (0.2-1.3) mg/dL AST (17-59) U/L ALT (21-72) U/L Alkaline Phosphatase (38-126) U/L Troponin I <0.012 (0.000-0.034) ng/mL Total Protein (6.3-8.2) g/dL Albumin (3.5-5.0) g/dL Urine Color Yellow Urine Appearance Clear (Clear) Urine pH 6.5 (5.0-8.0) Ur Specific [place] 1.006 (1.001-1.035) Urine Protein 2+ H (Negative) Urine Glucose (UA) Negative (Negative) Urine Ketones Negative (Negative) Urine Blood Negative (Negative) Urine Nitrite Negative (Negative) Urine Bilirubin Negative (Negative) Urine Urobilinogen <2.0 (<2.0) mg/dL Ur Leukocyte Esterase Negative (Negative) - EKG Data -: EKG Interpreted by Pr EKG shows normal: sinus rhythm, axis (Normal), intervals (Normal), ST-T waves Rate: tachycardia (Rate approximately 142 bpm) When compared to previous EKG there are: no significant change, other (The EKG is similar to 09/26/2016) Interpretation: other (Old anteroseptal infarct.) Critical Care Time Critical Care Time: Yes (35 minutes) Disposition Clinical Impression: Pneumonia, Elevated liver enzymes, Sepsis Disposition: ADMITTED IP TO THIS HOSP Condition: Fair
[2016-11-11] MEDS: SODIUM CHLORIDE 0.9% 500 ML IV SCH ×2 (19:50→21:18)
[2016-11-11 19:55] LABS: Basophils % (A) 0 %; CH 32.5; CHCM 35.5; Eosinophils % (A) 1 %; HDW 2.81; HGB 15.7 gm/dL (13.0-17.5); Luc # (Auto) 0.02; Luc % (Auto) 0; Lymphocytes # (A) 0.3 k/uL (1.0-4.8); Lymphocytes % (A) 4 %; MCH 31.4 pg (25.0-35.0); MCHC 34.1 g/dL (31.0-37.0); Mean Platelet Volume 7.8; Monocytes # (A) 0.1 k/uL (0-1.0); Monocytes % (A) 2 %; Neutrophils # (A) 6.8 k/uL (1.3-7.7); Neutrophils % (A) 93 %; RDW 14.9 % (11.5-15.5); WBC 7.3 k/uL (3.8-10.6); WBC (Perox) 7.09
[2016-11-11 20:05] LABS: Calcium 9.5 mg/dL (8.4-10.2); Potassium 4.4 mmol/L (3.5-5.1); Total Protein 7.1 g/dL (6.3-8.2)
[2016-11-11 20:14] LABS: INR 1.1 (<1.2); Prothrombin Time 10.6 sec (9.0-12.0)
[2016-11-11 20:17] LABS: Partial Thromboplastin Time 21.1 sec (22.0-30.0)
[2016-11-11 20:18] LABS: Appearance,Urine Clear (Clear); Bilirubin,Urine Negative (Negative); Glucose,Urine (UA) Negative (Negative); Ketones,Urine Negative (Negative); Leukocyte Esterase,Urine Negative (Negative); Nitrite,Urine Negative (Negative); PH, Urine 6.5 (5.0-8.0); Particle Count 603; Protein,Urine 2+ (Negative); Specific Gravity,Urine 1.006 (1.001-1.035); UA Billing (MACRO vs. MICRO) MICRO; Urobilinogen,Urine <2.0 mg/dL (<2.0)
--- NOTE | 2016-11-11 20:31 | XR ---
EXAMINATION TYPE: XR chest 1V portable DATE OF EXAM: 11/11/2016 COMPARISON: 09/26/2016 HISTORY: Fever TECHNIQUE: Single frontal view of the chest is obtained. FINDINGS: There is no heart failure nor confluent pneumonic infiltrate. There are no hilar masses. T horacic aorta is atheromatous. There are chest leads. There is some linear density at the left lung b ase. IMPRESSION: Possible subsegmental atelectasis at the left lung base. Normal heart. No change.
[2016-11-11] MEDS ORDERED: SODIUM CHLORIDE 0.9% 500 ML IV STA (21:59)
[2016-11-11] MEDS ORDERED: SODIUM CHLORIDE 0.9% 1,000 ML IV ONE (21:59)
[2016-11-11] MEDS ORDERED: PNEUMONIA PROTOCOL UTILIZED 1 EACH MISC PO PRN (22:02)
[2016-11-11] MEDS ORDERED: AZTREONAM 2 GM in SODIUM CHLORIDE 0.9% 100 ML IVPB STA (22:02)
[2016-11-11] MEDS ORDERED: NITROGLYCERIN SL TABS 0.4 MG TAB SUBLINGUAL PRN (22:05)
[2016-11-11] MEDS: SODIUM CHLORIDE 0.9% 1,000 ML IV SCH (22:29)
[2016-11-11 23:39] LABS: Glucose,Whole Blood 128 mg/dL (75-99)
[2016-11-12] MEDS: LORazepam 1 MG TAB PO PRN ×2 (00:04→22:58)
[2016-11-12 06:08] LABS: Glucose,Whole Blood 85 mg/dL (75-99)
[2016-11-12] MEDS ORDERED: AZTREONAM 2 GM in SODIUM CHLORIDE 0.9% 100 ML IVPB SCH (08:00)
[2016-11-12] MEDS ORDERED: DHA PO SCH (09:00)
[2016-11-12] MEDS ORDERED: EPA PO SCH (09:00)
[2016-11-12] MEDS ORDERED: OMEGA PO SCH (09:00)
[2016-11-12] MEDS ORDERED: FISH OIL PO SCH (09:00)
[2016-11-12] MEDS ORDERED: NON-FORMULARY DRUG (Ubidecarenone [Co Q-10] 100 MG) PO SCH (09:00)
[2016-11-12] MEDS ORDERED: NON-FORMULARY DRUG (Liraglutide [Victoza 2-Pak] 0.6 MG) SQ SCH (09:00)
[2016-11-12] MEDS: SODIUM CHLORIDE 0.9% 1,000 ML IV SCH ×2 (10:15→19:32)
[2016-11-12] MEDS: ASPIRIN 81 MG CHEW PO SCH ×2 (10:16→17:16)
[2016-11-12] MEDS: ALLOPURINOL 100 MG TAB PO SCH ×2 (10:16→21:49)
[2016-11-12] MEDS: LISINOPRIL 20 MG TAB PO SCH (10:17)
[2016-11-12] MEDS: MULTIVITAMINS, THERA 1 EACH TAB PO SCH (10:17)
[2016-11-12] MEDS: TERAZOSIN 2 MG CAP PO SCH ×2 (10:17→20:17)
[2016-11-12] MEDS: DULoxetine HCL 60 MG CAPSULE.DR PO SCH (10:17)
[2016-11-12] MEDS: CARVEDILOL 12.5 MG TAB PO SCH ×2 (10:23→17:10)
[2016-11-12 11:44] LABS: Glucose,Whole Blood 111 mg/dL (75-99)
--- NOTE | 2016-11-12 16:42 | P.HPIM ---
History of Present Illness Patient is a pleasant 70-year-old gentleman came in with compensative fever and myalgias has been going on for about a day. Patient denied any cough, denied any dysuria urine analysis essentially within normal murmurs. And patient chest x-ray showed atelectasis, patient denied any abdominal pain diarrhea. Patient's blood cultures are positive for gram-negative bacilli. Patient had a cholecystectomy about a month ago since then patient has been on antibiotics and recently completed antibiotics. Patient presented with sepsis at the time and patient was found to have cholecystitis underwent cholecystectomy. Patient received azetreonam in ER. Patient is feeling better today patient denied any cough, chest pain. Patient does have(with chronic kidney disease stage 2-3 because of which am an adopted a CAT scan of the abdomen at this time. Patient is being hydrated we will repeat the basic volley profile tomorrow if it's at a reasonable level patient will get a CAT scan of the abdomen to rule out any intra-abdominal source. Patient denied any dysuria an ink of increased urinary frequency. Review of Systems REVIEW OF SYSTEMS: CONSTITUTIONAL: As mentioned above HEENT: No recent visual problems or hearing problems. Denied any sore throat. CARDIOVASCULAR: No chest pain, orthopnea, PND, no palpitations, no syncope. PULMONARY: No shortness of breath, no cough, no hemoptysis. GASTROINTESTINAL: No diarrhea, no nausea, no vomiting, no abdominal pain. Normoactive bowel sounds. NEUROLOGICAL: No headaches, no weakness, no numbness. HEMATOLOGICAL: Denies any bleeding or petechiae. GENITOURINARY: Denies any burning micturition, frequency, or urgency. MUSCULOSKELETAL/RHEUMATOLOGICAL: Denies any joint pain, swelling, or any muscle pain. ENDOCRINE: Denies any polyuria or polydipsia. The rest of the 14-point review of systems is negative. Past Medical History Past Medical History: Diabetes Mellitus, Fibromyalgia, Hyperlipidemia, Hypertension, Myocardial Infarction ([place]), Renal Disease Additional Past Medical History / Comment(s): transient global amnesia Last Myocardial Infarction Date:: 2010 History of Any Multi-Drug Resistant Organisms: None Reported Past Surgical History: Adenoidectomy, Heart Catheterization With Stent Past Anesthesia/Blood Transfusion Reactions: No Reported Reaction Date of Last Stent Placement:: 2010 Past Psychological History: Anxiety Smoking Status: Never smoker Past Alcohol Use History: None Reported Past Drug Use History: None Reported - Past Family History Father Family Medical History: Blood Disorder (thrombocytopenia, had splenectomy) Mother Family Medical History: Cancer Medications and Allergies Home Medications Medication Instructions Recorded Confirmed Type Allopurinol [Zyloprim] 100 mg PO BID 09/25/16 11/11/16 History Aspirin [Adult Low Dose Aspirin EC] 162 mg PO DAILY 09/25/16 11/11/16 History Carvedilol [Coreg] 25 mg PO BID 09/25/16 11/11/16 History DULoxetine HCL [Cymbalta] 60 mg PO DAILY 09/25/16 11/11/16 History Ergocalciferol [Vitamin D2 50,000 unit PO Q14D 09/25/16 11/11/16 History (DRISDOL)] Furosemide [Lasix] 20 mg PO SUTUWETHSA 09/25/16 11/11/16 History LORazepam [Ativan] 1 mg PO TID PRN 09/25/16 11/11/16 History Liraglutide [Victoza 2-Seferino] 0.6 mg SQ DAILY 09/25/16 11/11/16 History Lisinopril [Zestril] 40 mg PO DAILY 09/25/16 11/11/16 History Multivitamins, Thera [Multivitamin 1 tab PO DAILY 09/25/16 11/11/16 History (formulary)] Nitroglycerin Sl Tabs [Nitrostat] 0.4 mg SUBLINGUAL Q5M PRN 09/25/16 11/11/16 History Nortriptyline HCl [Pamelor] 50 mg PO HS 09/25/16 11/11/16 History [place]-3/Dha/Epa/Fish Oil [Fish Oil 1 cap PO DAILY 09/25/16 11/11/16 History 1,360 mg Softgel] Rosuvastatin [Crestor] 10 mg PO HS 09/25/16 11/11/16 History Terazosin HCl 2 mg PO BID 09/25/16 11/11/16 History Ubidecarenone [Co Q-10] 100 mg PO DAILY 09/25/16 11/11/16 History Furosemide [Lasix] 40 mg PO MOFR 11/11/16 11/11/16 History Allergies Allergy/AdvReac Type Severity Reaction Status Date / Time adhesive tape Allergy Rash/Hives Verified 11/11/16 19:50 Penicillins Allergy Itching Verified 11/11/16 19:50 prednisone AdvReac DEPRESSION Verified 11/11/16 19:50 WITH LARGE DOSES Physical Exam Vitals: Vital Signs Temp Pulse Pulse Resp BP BP Pulse Ox 11/12/16 16:00 98.6 F 109 H 18 146/78 95 11/12/16 12:00 97.2 F L 109 H 18 144/78 95 11/12/16 10:10 97.5 F L 100 18 119/62 97 11/12/16 08:04 95 11/12/16 06:49 128/71 11/12/16 04:00 97.0 F L 88 18 115/65 97 11/11/16 23:32 97.5 F L 101 H 18 101/63 97 11/11/16 23:15 97.5 F L 101 H 18 101/63 97 11/11/16 22:44 98.9 F 101 H 18 111/64 64 L 11/11/16 21:58 100.3 F H 111 H 18 93/63 94 L 11/11/16 21:57 83/53 11/11/16 20:46 100.7 F H 119 H 18 101/57 97 11/11/16 20:26 121 H 20 106/60 97 11/11/16 20:00 102.5 F H 130 H 16 114/67 96 11/11/16 19:03 100.0 F H 152 H 18 128/73 96 Intake and Output 11/12/16 11/12/16 11/12/16 06:59 14:59 22:59 Intake Total 100 1260 Balance 100 1260 Intake: Intake, IV Titration 100 900 Amount Aztreonam 2 gm In Sodium 100 Chloride 0.9% 100 ml @ 100 mls/hr IVPB ONCE STA Rx#:[id number] Aztreonam 2 gm In Sodium 100 Chloride 0.9% 100 ml @ 100 mls/hr IVPB Q8HR [facility] Rx#:[id number] Sodium Chloride 0.9% 1, 800 000 ml @ 100 mls/hr IV . Q10H [facility] Rx#:[id number] Oral 360 Other: # Voids 1 4 Weight 89.6 kg PHYSICAL EXAMINATION: GENERAL: The patient is alert and oriented x3, not in any acute distress. Well developed, well nourished. HEENT: Pupils are round and equally reacting to light. EOMI. No scleral icterus. No conjunctival pallor. Normocephalic, atraumatic. No pharyngeal erythema. No thyromegaly. CARDIOVASCULAR: S1 and S2 present. No murmurs, rubs, or gallops. PULMONARY: Chest is clear to auscultation, no wheezing or crackles. ABDOMEN: Soft, nontender, nondistended, normoactive bowel sounds. No palpable organomegaly. MUSCULOSKELETAL: No joint swelling or deformity. EXTREMITIES: No cyanosis, clubbing, or pedal edema. NEUROLOGICAL: Gross neurological examination did not reveal any focal deficits. SKIN: No rashes. Results CBC & Chem 7: 11/11/16 19:30 11/11/16 19:30 Labs: Abnormal Lab Results - Last 24 Hours (Table) 11/11/16 11/11/16 11/11/16 Range/Units 19:30 19:30 19:30 Plt Count 109 L (150-450) k/uL Lymphocytes # 0.3 L (1.0-4.8) k/uL APTT 21.1 L (22.0-30.0) sec BUN 23 H (9-20) mg/dL Creatinine 1.43 H (0.66-1.25) mg/dL Glucose 164 H (74-99) mg/dL POC Glucose (mg/dL) (75-99) mg/dL AST 80 H (17-59) U/L ALT 90 H (21-72) U/L Urine Protein (Negative) 11/11/16 11/11/16 11/12/16 Range/Units 20:04 23:28 11:42 Plt Count (150-450) k/uL Lymphocytes # (1.0-4.8) k/uL APTT (22.0-30.0) sec BUN (9-20) mg/dL Creatinine (0.66-1.25) mg/dL Glucose (74-99) mg/dL POC Glucose (mg/dL) 128 H 111 H (75-99) mg/dL AST (17-59) U/L ALT (21-72) U/L Urine Protein 2+ H (Negative) Microbiology - Last 24 Hours (Table) 11/11/16 19:30 Blood Culture Gram Stain - Preliminary Blood 11/11/16 19:30 Blood Culture - Final Blood 11/11/16 20:04 Urine Culture - Preliminary Urine,Voided Thrombosis Risk Factor Assmnt - Choose All That Apply Each Factor Represents 1 point: Obesity (BMI >25) Each Risk Factor Represents 2 Points: Age 61-74 years Thrombosis Risk Factor Assessment Total Risk Factor Score: 3 Thrombosis Risk Factor Assessment Level: Moderate Risk Assessment and Plan Plan: #1 fever, bacteremia and sepsis: source off infection is not clear at this point of time patient has gram-negative bacteremia patient does not appear to have urinary tract infection that of other possible sources intra-abdominal infection counseling that patient had recent intra-abdominal surgery. Patient will be switched to Rocephin at this time infectious disease will be consulted. We will hydrate him if his any function improves patient will get a CAT scan of the abdomen. Patient has minimally elevated AST and ALP. 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
[2016-11-12] MEDS: HEPARIN SODIUM,PORCINE 5,000 UNIT/ML 1 ML VIAL SQ SCH ×2 (17:10→22:57)
[2016-11-12 17:26] LABS: Glucose,Whole Blood 109 mg/dL (75-99)
[2016-11-12] MEDS: ATORVASTATIN 20 MG TAB PO SCH (20:15)
[2016-11-12] MEDS: NORTRIPTYLINE 25 MG CAP PO SCH (20:17)
[2016-11-12 21:17] LABS: Glucose,Whole Blood 134 mg/dL (75-99)
[2016-11-12] MEDS: LACTOBACILLUS ACIDOPH & BULGAR 1 EACH PACKET PO SCH (21:49)
[2016-11-13] MEDS ORDERED: ACETAMINOPHEN TAB 325 MG TAB PO STA (00:37)
[2016-11-13] MEDS: SODIUM CHLORIDE 0.9% 1,000 ML IV SCH ×2 (05:15→16:52)
[2016-11-13 07:10] LABS: Glucose,Whole Blood 92 mg/dL (75-99)
[2016-11-13 08:09] LABS: CH 31.6; CHCM 34.5; HCT 37.9 % (39.0-53.0); HDW 2.85; HGB 13.1 gm/dL (13.0-17.5); MCH 31.7 pg (25.0-35.0); MCHC 34.5 g/dL (31.0-37.0); Mean Platelet Volume 7.7; RBC 4.12 m/uL (4.30-5.90); WBC 6.1 k/uL (3.8-10.6)
[2016-11-13 08:30] LABS: Anion Gap 7 mmol/L; Blood Urea Nitrogen 16 mg/dL (9-20); Calcium 8.2 mg/dL (8.4-10.2); Carbon Dioxide 22 mmol/L (22-30); Chloride 112 mmol/L (98-107); Glucose 85 mg/dL (74-99); Non-African American GFR(MDRD) >60 (>60 ml/min/1.73 sqM); Potassium 4.1 mmol/L (3.5-5.1); Sodium 141 mmol/L (137-145)
[2016-11-13] MEDS: ASPIRIN 81 MG CHEW PO SCH (08:39)
[2016-11-13] MEDS: DULoxetine HCL 60 MG CAPSULE.DR PO SCH (08:39)
[2016-11-13] MEDS: LISINOPRIL 20 MG TAB PO SCH (08:39)
[2016-11-13] MEDS: MULTIVITAMINS, THERA 1 EACH TAB PO SCH (08:39)
[2016-11-13] MEDS: LACTOBACILLUS ACIDOPH & BULGAR 1 EACH PACKET PO SCH ×3 (08:39→20:56)
[2016-11-13] MEDS: ALLOPURINOL 100 MG TAB PO SCH ×2 (08:39→20:56)
[2016-11-13] MEDS: HEPARIN SODIUM,PORCINE 5,000 UNIT/ML 1 ML VIAL SQ SCH ×2 (08:39→14:53)
[2016-11-13] MEDS: TERAZOSIN 2 MG CAP PO SCH ×2 (08:39→20:54)
[2016-11-13] MEDS: CARVEDILOL 12.5 MG TAB PO SCH ×2 (08:39→17:31)
--- NOTE | 2016-11-13 11:13 | P.PN ---
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 Patient will need an abdominal CAT scan. As with nephrology will obtain a CAT scan of the abdomen with contrast if required pain infectious disease to rule out any intra-abdominal source of infection. Patient denied any fever, chills, nausea, vomiting, abdominal pain, dysuria, cough. Objective - Vital Signs Vital signs: Vital Signs Temp 97.6 F 11/13/16 07:00 Pulse 93 11/13/16 07:00 Resp 20 11/13/16 08:00 BP 120/71 11/13/16 07:00 Pulse Ox 96 11/13/16 07:00 Intake & Output 11/12/16 11/13/16 11/13/16 18:59 06:59 18:59 Intake Total 1260 730 Balance 1260 730 Intake: Intake, IV Titration 900 50 Amount Aztreonam 2 gm In Sodium 100 Chloride 0.9% 100 ml @ 100 mls/hr IVPB Q8HR [facility] Rx#:[id number] Sodium Chloride 0.9% 1, 800 000 ml @ 100 mls/hr IV . Q10H [facility] Rx#:[id number] cefTRIAXone 1,000 mg In 50 Sodium Chloride 0.9% 50 ml @ 100 mls/hr IVPB Q24HR [facility] Rx#:[id number] Oral 360 680 Other: # Voids 4 2 - Exam PHYSICAL EXAMINATION: GENERAL: The patient is alert and oriented x3, not in any acute distress. Well developed, well nourished. HEENT: Pupils are round and equally reacting to light. EOMI. No scleral icterus. No conjunctival pallor. Normocephalic, atraumatic. No pharyngeal erythema. No thyromegaly. CARDIOVASCULAR: S1 and S2 present. No murmurs, rubs, or gallops. PULMONARY: Chest is clear to auscultation, no wheezing or crackles. ABDOMEN: Soft, nontender, nondistended, normoactive bowel sounds. No palpable organomegaly. MUSCULOSKELETAL: No joint swelling or deformity. EXTREMITIES: No cyanosis, clubbing, or pedal edema. NEUROLOGICAL: Gross neurological examination did not reveal any focal deficits. SKIN: No rashes. - Labs CBC & Chem 7: 11/13/16 07:38 11/13/16 07:38 Labs: Abnormal Lab Results - Last 24 Hours (Table) 11/12/16 11/12/16 11/12/16 Range/Units 11:42 17:24 21:12 RBC (4.30-5.90) m/uL Hct (39.0-53.0) % Plt Count (150-450) k/uL Chloride (98-107) mmol/L POC Glucose (mg/dL) 111 H 109 H 134 H (75-99) mg/dL Calcium (8.4-10.2) mg/dL 11/13/16 11/13/16 Range/Units 07:38 07:38 RBC 4.12 L (4.30-5.90) m/uL Hct 37.9 L (39.0-53.0) % Plt Count 85 L (150-450) k/uL Chloride 112 H (98-107) mmol/L POC Glucose (mg/dL) (75-99) mg/dL Calcium 8.2 L (8.4-10.2) mg/dL Microbiology - Last 24 Hours (Table) 11/11/16 20:04 Urine Culture - Final Urine,Voided 11/11/16 19:30 Blood Culture Gram Stain - Preliminary Blood Blood Culture - Preliminary Gram Neg Bacilli 11/11/16 19:30 Blood Culture - Final Blood Assessment and Plan Plan: #1 fever, bacteremia and sepsis: source off infection is not clear at this point of time patient has gram-negative bacteremia patient does not appear to have urinary tract infection that of other possible sources intra-abdominal infection counseling that patient had recent abdominal surgery. Patient will be switched to Rocephin at this time infectious disease will be consulted. He function did improve if required by infectious disease we can obtain a CAT scan of the abdomen with contrast. 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
[2016-11-13 12:34] LABS: Glucose,Whole Blood 118 mg/dL (75-99)
[2016-11-13] MEDS ORDERED: RX INFO: IV CONTRAST WAS GIVEN 1 EACH MISC MISCELLANE PRN (14:15)
[2016-11-13] MEDS: IOHEXOL 350 MG/ML 25 ML BOTTLE (ORAL USE) PO PRN ×2 (14:51→15:43)
[2016-11-13] MEDS: LORazepam 1 MG TAB PO PRN ×2 (16:01→22:44)
[2016-11-13 17:23] LABS: Glucose,Whole Blood 136 mg/dL (75-99)
--- NOTE | 2016-11-13 19:59 | CT ---
EXAMINATION TYPE: CT abdomen pelvis w con DATE OF EXAM: 11/13/2016 COMPARISON: NONE HISTORY: Cholecystectomy -2016, sepsis and kidney disease. CT DLP: 1068.60 mGycm Automated exposure control for dose reduction was used. TECHNIQUE: Helical acquisition of images was performed from the lung bases through the pelvis. CONTRAST: Performed with Oral Contrast and with IV Contrast, patient injected with 100 mL of Omnipaque 300. FINDINGS: LUNG BASES: Mild dependent changes are noted at both lung bases. There is no pleural or pericardial e ffusion. LIVER/GB: No significant abnormality is appreciated. There is a structure medial to the right hepatic lobe which is consistent with the gallbladder. No surgical clips are identified in the gallbladder f amanda which would suggest a cholecystectomy. PANCREAS: No significant abnormality is seen. SPLEEN: No significant abnormality is seen. ADRENALS: No significant abnormality is seen. KIDNEYS: No significant abnormality is seen. Nonspecific mild perinephric fat stranding is noted. FREE AIR: No free air is visualized. RETROPERITONEAL ADENOPATHY: None visualized REPRODUCTIVE ORGANS: The prostate measures 5.4 cm in transverse dimension. URINARY BLADDER: No significant abnormality is seen. PELVIC ADENOPATHY: None visualized. OSSEOUS STRUCTURES: Mild to moderate spondylosis is noted. There is a posterior endplate spur at the level of L3-4 which causes severe central canal stenosis. BOWEL: Mild diverticulosis is noted in the descending and sigmoid colon. There is no evidence of acu te diverticulitis. OTHER: None IMPRESSION: NO SIGNIFICANT FINDINGS. THERE IS A STRUCTURE ADJACENT TO THE MEDIAL RIGHT HEPATIC LOBE WHICH COULD B E THE GALLBLADDER. NO SURGICAL CLIPS ARE IDENTIFIED IN THE GALLBLADDER FOSSA THAT WOULD CONFIRM A CHO LECYSTECTOMY.
[2016-11-13] MEDS: NORTRIPTYLINE 25 MG CAP PO SCH (20:54)
[2016-11-13] MEDS: ATORVASTATIN 20 MG TAB PO SCH ×2 (20:55→21:00)
[2016-11-13 20:59] LABS: Glucose,Whole Blood 112 mg/dL (75-99)
[2016-11-13] MEDS: ACETAMINOPHEN TAB 325 MG TAB PO PRN (23:02)
--- NOTE | 2016-11-13 23:21 | P.CONS ---
History of Present Illness - Reason for Consult Consult date: 11/13/16 - Chief Complaint Fever with chills - History of Present Illness 71-year-old male presents to the emergency center with a relatively short history of high-grade fever chills or myalgias. He has a very pertinent recent past medical history in that he had a bout of sepsis earlier in the summer. Workup at that time revealed evidence of acute cholecystitis and was taken to the operating room and a cholecystectomy was performed. Afterwards he had gradual resolution of his symptoms and resolved his sepsis. He recovered from his surgery. He was well enough to go to a vacation in [place]. He felt well during that time. However they've now been home for a couple weeks and he started to have the symptoms of the fever and chills reminiscent of how he felt earlier in the summer. Because of that he was brought to the emergency center. Cultures been performed and gram-negative bacilli haven't found that his blood culture. With the positive cultures and diseases consultation was requested. An CT scanning of the abdomen and pelvis was requested. The patient is somewhat comfortable at this time. He had this time is denying significant abdominal pain. No right upper quadrant pain. He is also not having pain in his lower back when he was having when he had his acute cholecystitis. Other than the fever and chills he's having no significant headache mouth troubles chest pain shortness of breath nausea emesis or diarrhea. He also hasbeen urinary symptoms. He however did develop myalgias and felt quite poorly overall. Review of Systems Patient has had fever with chills and myalgia HEENT:Denies headache or acute visual change. Denies sinus or mouth discomforts. Denies neck stiffness or pain. Denies significant oral cavity pain. Denies difficulty on swallowing. Lungs: Denies significant shortness of breath, cough, sputum production, or hemoptysis. Cardiovascular: Denies significant shortness of breath, chest pain, chest wall pain, orthopnea, dyspnea on exertion, syncope Gastrointestinal:Denies nausea, vomiting, diarrhea, constipation, hematemesis, melena, hematochezia. No no significant change of bowel habit noticed. Musculoskeletal: Myalgia without new arthralgia Skin: Denies new rash or lesions. No new ulcers or wounds are related.. Neuro: He had a mild headache but no visual change. Denies any new onset weakness or difficulty with ambulation. Denies falls or seizures. Psychiatric:Denies anxiety or depression. Endocrine: With the current illness had significant fatigue, denies significant weight loss or weight gain. Past Medical History Past Medical History: Diabetes Mellitus, Fibromyalgia, Hyperlipidemia, Hypertension, Myocardial Infarction (ID), Renal Disease Additional Past Medical History / Comment(s): transient global amnesia Last Myocardial Infarction Date:: 2010 History of Any Multi-Drug Resistant Organisms: None Reported Past Surgical History: Adenoidectomy, Heart Catheterization With Stent Past Anesthesia/Blood Transfusion Reactions: No Reported Reaction Date of Last Stent Placement:: 2010 Past Psychological History: Anxiety Additional Psychological History / Comment(s): . Retired. Recently traveled out east but was not ill at that time. No animal exposures. No tobacco use or alcohol use. Was in the in the [employer] no illnesses during that time Smoking Status: Never smoker Past Alcohol Use History: None Reported Past Drug Use History: None Reported - Past Family History Father Family Medical History: Blood Disorder (thrombocytopenia, had splenectomy) Mother Family Medical History: Cancer Medications and Allergies Home Medications and Allergies Comment(s): Current Medications Acetaminophen (Tylenol Tab) 650 mg PO Q6HR PRN PRN Reason: Fever and/ or Pain Last Admin: 11/13/16 23:02 Dose: 650 mg Allopurinol (Zyloprim) 100 mg PO BID [facility] Last Admin: 11/13/16 20:56 Dose: 100 mg Aspirin (Aspirin) 162 mg PO DAILY [facility] Last Admin: 11/13/16 08:39 Dose: 162 mg Atorvastatin Calcium (Lipitor) 20 mg PO HS [facility] Last Admin: 11/13/16 21:00 Dose: Not Given Carvedilol (Coreg) 25 mg PO AC-BID [facility] Last Admin: 11/13/16 17:31 Dose: 25 mg Duloxetine HCl (Cymbalta) 60 mg PO DAILY [facility] Last Admin: 11/13/16 08:39 Dose: 60 mg Heparin Sodium (Porcine) (Heparin) 5,000 unit SQ Q8HR [facility] Last Admin: 11/13/16 14:53 Dose: Not Given Sodium Chloride (Saline 0.9%) 1,000 mls @ 100 mls/hr IV .Q10H [facility] Last Admin: 11/13/16 16:52 Dose: Not Given Ceftriaxone Sodium 1,000 mg/ (Sodium Chloride) 50 mls @ 100 mls/hr IVPB Q24HR [facility] Last Admin: 11/13/16 08:38 Dose: 100 mls/hr Iohexol (Omnipaque 350 Mg/Ml (For Oral Use)) 25 ml PO Q60M PRN PRN Reason: CT Scan Stop: 11/14/16 14:17 Last Admin: 11/13/16 15:43 Dose: 25 ml Lactobacillus Acidoph/Bulgaricus (Lactinex) 1 each PO TID [facility] Last Admin: 11/13/16 20:56 Dose: 1 each Lisinopril (Zestril) 40 mg PO DAILY [facility] Last Admin: 11/13/16 08:39 Dose: 40 mg Lorazepam (Ativan) 1 mg PO TID PRN PRN Reason: Anxiety Last Admin: 11/13/16 22:44 Dose: 1 mg Miscellaneous Information (Pneumonia Protocol Utilized) 1 each PO ONCE PRN PRN Reason: Per Protocol Miscellaneous Information (Rx Info: Iv Contrast Was Given) 1 each MISCELLANE DAILY PRN PRN Reason: Per Protocol Stop: 11/15/16 14:17 Multivitamins (Theragran) 1 each PO DAILY [facility] Last Admin: 11/13/16 08:39 Dose: 1 each Nitroglycerin (Nitrostat) 0.4 mg SUBLINGUAL Q5M PRN PRN Reason: Chest Pain Nortriptyline HCl (Pamelor) 50 mg PO HS [facility] Last Admin: 11/13/16 20:54 Dose: 50 mg Terazosin HCl (Hytrin) 2 mg PO BID [facility] Last Admin: 11/13/16 20:54 Dose: 2 mg Home Medications Medication Instructions Recorded Confirmed Type Allopurinol [Zyloprim] 100 mg PO BID 09/25/16 11/11/16 History Aspirin [Adult Low Dose Aspirin EC] 162 mg PO DAILY 09/25/16 11/11/16 History Carvedilol [Coreg] 25 mg PO BID 09/25/16 11/11/16 History DULoxetine HCL [Cymbalta] 60 mg PO DAILY 09/25/16 11/11/16 History Ergocalciferol [Vitamin D2 50,000 unit PO Q14D 09/25/16 11/11/16 History (DRISDOL)] Furosemide [Lasix] 20 mg PO SUTUWETHSA 09/25/16 11/11/16 History LORazepam [Ativan] 1 mg PO TID PRN 09/25/16 11/11/16 History Liraglutide [Victoza 2-Seferino] 0.6 mg SQ DAILY 09/25/16 11/11/16 History Lisinopril [Zestril] 40 mg PO DAILY 09/25/16 11/11/16 History Multivitamins, Thera [Multivitamin 1 tab PO DAILY 09/25/16 11/11/16 History (formulary)] Nitroglycerin Sl Tabs [Nitrostat] 0.4 mg SUBLINGUAL Q5M PRN 09/25/16 11/11/16 History Nortriptyline HCl [Pamelor] 50 mg PO HS 09/25/16 11/11/16 History Hayti-3/Dha/Epa/Fish Oil [Fish Oil 1 cap PO DAILY 09/25/16 11/11/16 History 1,360 mg Softgel] Rosuvastatin [Crestor] 10 mg PO HS 09/25/16 11/11/16 History Terazosin HCl 2 mg PO BID 09/25/16 11/11/16 History Ubidecarenone [Co Q-10] 100 mg PO DAILY 09/25/16 11/11/16 History Furosemide [Lasix] 40 mg PO MOFR 11/11/16 11/11/16 History Allergies Allergy/AdvReac Type Severity Reaction Status Date / Time adhesive tape Allergy Rash/Hives Verified 11/11/16 19:50 Penicillins Allergy Itching Verified 11/11/16 19:50 prednisone AdvReac DEPRESSION Verified 11/11/16 19:50 WITH LARGE DOSES Physical Exam Vitals: Vital Signs Temp Pulse Resp BP Pulse Ox 11/13/16 20:54 86 144/91 11/13/16 15:22 20 11/13/16 15:00 98.4 F 96 16 160/92 97 11/13/16 08:00 20 11/13/16 07:00 97.6 F 93 20 120/71 96 11/13/16 02:48 98.4 F 11/13/16 00:41 100 F H 91 122/68 11/13/16 00:00 20 11/12/16 23:30 100 F H 62 20 151/87 98 Intake and Output 11/13/16 11/13/16 11/14/16 14:59 22:59 06:59 Other: # Voids 3 Very pleasant 71-year-old male who has had fever chills and rigor and generalized body ache. He does have underlying fibromyalgia and this has worsened this. HEENT: Anicteric conjunctiva are pink and moist nasal mucosa grossly intact without significant lesions, there is no thrush. Neck: The neck is supple without significant lymphadenopathy or thyromegaly. Lungs: Symmetrical air entry with only few basilar crackles no bronchial sounds or egophony or dullness is noted Heart: Regular rate and rhythm with an audible S1-S2, no S3 soft S4. There is no significant murmur click or rub, PMI was nondisplaced. Abdomen: Positive bowel sounds soft and nontender without palpable masses or organomegaly. There was no guarding or rebound. Extremities: The upper extremities have excellent pulses they are symmetric, no significant petechiae or telangiectasia. No splinter hemorrhages were noted. The lower extremities are free from significant edema. The peripheral pulses were 2+ and symmetric. Neuro: Awake alert oriented to person place and time. There are no acute new gross focal sensory motor deficits. Results CBC & Chem 7: 11/13/16 07:38 11/13/16 07:38 Labs: Abnormal Lab Results - Last 24 Hours (Table) 11/13/16 11/13/16 11/13/16 Range/Units 07:38 07:38 12:29 RBC 4.12 L (4.30-5.90) m/uL Hct 37.9 L (39.0-53.0) % Plt Count 85 L (150-450) k/uL Chloride 112 H (98-107) mmol/L POC Glucose (mg/dL) 118 H (75-99) mg/dL Calcium 8.2 L (8.4-10.2) mg/dL 11/13/16 11/13/16 Range/Units 17:22 20:45 RBC (4.30-5.90) m/uL Hct (39.0-53.0) % Plt Count (150-450) k/uL Chloride (98-107) mmol/L POC Glucose (mg/dL) 136 H 112 H (75-99) mg/dL Calcium (8.4-10.2) mg/dL Microbiology - Last 24 Hours (Table) 11/11/16 19:30 Blood Culture Gram Stain - Final Blood Blood Culture - Final Citrobacter freundii 11/12/16 16:20 Blood Culture - Preliminary Blood No Growth after 24 hours 11/11/16 20:04 Urine Culture - Final Urine,Voided Laboratory Results WBC 6.1 k/uL (3.8-10.6) 11/13/16 07:38 RBC 4.12 m/uL (4.30-5.90) L 11/13/16 07:38 Hgb 13.1 gm/dL (13.0-17.5) 11/13/16 07:38 Hct 37.9 % (39.0-53.0) L 11/13/16 07:38 MCV 92.0 fL (80.0-100.0) 11/13/16 07:38 MCH 31.7 pg (25.0-35.0) 11/13/16 07:38 MCHC 34.5 g/dL (31.0-37.0) 11/13/16 07:38 RDW 14.0 % (11.5-15.5) 11/13/16 07:38 Plt Count 85 k/uL (150-450) L 11/13/16 07:38 Neutrophils % 93 % 11/11/16 19:30 Lymphocytes % 4 % 11/11/16 19:30 Monocytes % 2 % 11/11/16 19:30 Eosinophils % 1 % 11/11/16 19:30 Basophils % 0 % 11/11/16 19:30 Neutrophils # 6.8 k/uL (1.3-7.7) 11/11/16 19:30 Lymphocytes # 0.3 k/uL (1.0-4.8) L 11/11/16 19:30 Monocytes # 0.1 k/uL (0-1.0) 11/11/16 19:30 Eosinophils # 0.0 k/uL (0-0.7) 11/11/16 19:30 Basophils # 0.0 k/uL (0-0.2) 11/11/16 19:30 PT 10.6 sec (9.0-12.0) 11/11/16 19:30 INR 1.1 (<1.2) 11/11/16 19:30 APTT 21.1 sec (22.0-30.0) L 11/11/16 19:30 Sodium 141 mmol/L (137-145) 11/13/16 07:38 Potassium 4.1 mmol/L (3.5-5.1) 11/13/16 07:38 Chloride 112 mmol/L (98-107) H 11/13/16 07:38 Carbon Dioxide 22 mmol/L (22-30) 11/13/16 07:38 Anion Gap 7 mmol/L 11/13/16 07:38 BUN 16 mg/dL (9-20) 11/13/16 07:38 Creatinine 1.14 mg/dL (0.66-1.25) 11/13/16 07:38 Est GFR (MDRD) Af Amer >60 (>60 ml/min/1.73 sqM) 11/13/16 07:38 Est GFR (MDRD) Non-Af >60 (>60 ml/min/1.73 sqM) 11/13/16 07:38 Glucose 85 mg/dL (74-99) 11/13/16 07:38 POC Glucose (mg/dL) 112 mg/dL (75-99) H 11/13/16 20:45 POC Glu Alarm Signal Operator ID Aspen Sanchez 11/13/16 20:45 Plasma Lactic Acid Axel 1.9 mmol/L (0.7-2.0) 11/11/16 19:30 Calcium 8.2 mg/dL (8.4-10.2) L 11/13/16 07:38 Total Bilirubin 1.0 mg/dL (0.2-1.3) 11/11/16 19:30 AST 80 U/L (17-59) H 11/11/16 19:30 ALT 90 U/L (21-72) H 11/11/16 19:30 Alkaline Phosphatase 80 U/L (38-126) 11/11/16 19:30 Troponin I <0.012 ng/mL (0.000-0.034) 11/11/16 19:30 Total Protein 7.1 g/dL (6.3-8.2) 11/11/16 19:30 Albumin 4.3 g/dL (3.5-5.0) 11/11/16 19:30 Urine Color Yellow 11/11/16 20:04 Urine Appearance Clear (Clear) 11/11/16 20:04 Urine pH 6.5 (5.0-8.0) 11/11/16 20:04 Ur Specific [place] 1.006 (1.001-1.035) 11/11/16 20:04 Urine Protein 2+ (Negative) H 11/11/16 20:04 Urine Glucose (UA) Negative (Negative) 11/11/16 20:04 Urine Ketones Negative (Negative) 11/11/16 20:04 Urine Blood Negative (Negative) 11/11/16 20:04 Urine Nitrite Negative (Negative) 11/11/16 20:04 Urine Bilirubin Negative (Negative) 11/11/16 20:04 Urine Urobilinogen <2.0 mg/dL (<2.0) 11/11/16 20:04 Ur Leukocyte Esterase Negative (Negative) 11/11/16 20:04 Microbiology 11/11/16 19:30 Blood Blood Culture Gram Stain - Final 11/11/16 19:30 Blood Blood Culture - Final Citrobacter freundii 11/12/16 16:20 Blood Blood Culture - Preliminary No Growth after 24 hours 11/11/16 20:04 Urine,Voided Urine Culture - Final 11/11/16 19:30 Blood Blood Culture - Final Assessment and Plan (1) Fever Narrative/Plan: Very pleasant 71-year-old male presents the emergency center with a sudden onset of high-grade fever chills and worsening body aches and myalgia. He does have a history of fibromyalgia and is on Cymbalta. He over became quite miserable and was brought to hospital. They're concerned because earlier in the summer he had some atypical abdominal pain fevers and was found evidence of acute cholecystitis and taken to have ringworm for his cholecystectomy. Since that time is doing modestly well until recently he started to have the difficulty with the onset of the fever and chill and sweat and calcium presented to Hospital. Workup some process. An infectious diseases evaluation was requested. Computed tomography scan of the abdomen and pelvis been requested since this is often a source of gram-negative bacteremia. Urine cultures in process. Follow blood cultures be needed to ensure that he cleared his bacteremia. If his computed tomography scan is not definitive will need further evaluation. Antibiotic therapy was advised with Zosyn given the sepsis of potential abdominal focus. Status: Acute (2) Gram negative sepsis Status: Acute
[2016-11-14] MEDS: HEPARIN SODIUM,PORCINE 5,000 UNIT/ML 1 ML VIAL SQ SCH ×3 (00:18→17:01)
[2016-11-14] MEDS: SODIUM CHLORIDE 0.9% 1,000 ML IV SCH ×3 (00:18→21:17)
[2016-11-14 07:50] LABS: Glucose,Whole Blood 106 mg/dL (75-99)
[2016-11-14 08:46] LABS: CH 32.3; CHCM 34.5; HDW 2.88; HGB 14.7 gm/dL (13.0-17.5); MCH 30.8 pg (25.0-35.0); MCHC 32.7 g/dL (31.0-37.0); MCV 94.1 fL (80.0-100.0); Mean Platelet Volume 7.9; RBC 4.78 m/uL (4.30-5.90); WBC 5.7 k/uL (3.8-10.6)
[2016-11-14 09:14] LABS: Anion Gap 8 mmol/L; Blood Urea Nitrogen 14 mg/dL (9-20); Calcium 8.9 mg/dL (8.4-10.2); Carbon Dioxide 26 mmol/L (22-30); Chloride 109 mmol/L (98-107); Glucose 99 mg/dL (74-99); Non-African American GFR(MDRD) >60 (>60 ml/min/1.73 sqM); Potassium 4.2 mmol/L (3.5-5.1); Sodium 143 mmol/L (137-145)
[2016-11-14] MEDS: CARVEDILOL 12.5 MG TAB PO SCH ×2 (09:19→17:03)
[2016-11-14] MEDS: ALLOPURINOL 100 MG TAB PO SCH ×2 (09:20→21:14)
[2016-11-14] MEDS: ASPIRIN 81 MG CHEW PO SCH (09:20)
[2016-11-14] MEDS: DULoxetine HCL 60 MG CAPSULE.DR PO SCH (09:21)
[2016-11-14] MEDS: LACTOBACILLUS ACIDOPH & BULGAR 1 EACH PACKET PO SCH ×3 (09:21→21:15)
[2016-11-14] MEDS: MULTIVITAMINS, THERA 1 EACH TAB PO SCH (09:21)
[2016-11-14] MEDS: LISINOPRIL 20 MG TAB PO SCH (09:21)
[2016-11-14] MEDS: TERAZOSIN 2 MG CAP PO SCH ×2 (09:22→21:15)
[2016-11-14 12:33] LABS: Glucose,Whole Blood 138 mg/dL (75-99)
[2016-11-14] MEDS: LORazepam 1 MG TAB PO PRN ×2 (14:40→22:48)
[2016-11-14] MEDS: ACETAMINOPHEN TAB 325 MG TAB PO PRN ×2 (14:40→22:48)
[2016-11-14 17:18] LABS: Glucose,Whole Blood 113 mg/dL (75-99)
[2016-11-14 20:48] LABS: Glucose,Whole Blood 148 mg/dL (75-99)
--- NOTE | 2016-11-14 21:09 | P.PN ---
Subjective Principal diagnosis: Fever and chills 71-year-old male presents to the emergency center with a relatively short history of high-grade fever chills or myalgias. He has a very pertinent recent past medical history in that he had a bout of sepsis earlier in the summer. Workup at that time revealed evidence of acute cholecystitis and was taken to the operating room and a cholecystectomy was performed. Afterwards he had gradual resolution of his symptoms and resolved his sepsis. He recovered from his surgery. He was well enough to go to a vacation in [place]. He felt well during that time. However they've now been home for a couple weeks and he started to have the symptoms of the fever and chills reminiscent of how he felt earlier in the summer. Because of that he was brought to the emergency center. Cultures been performed and gram-negative bacilli haven't found that his blood culture. With the positive cultures and diseases consultation was requested. An CT scanning of the abdomen and pelvis was requested. The patient is somewhat comfortable at this time. He had this time is denying significant abdominal pain. No right upper quadrant pain. He is also not having pain in his lower back when he was having when he had his acute cholecystitis. Other than the fever and chills he's having no significant headache mouth troubles chest pain shortness of breath nausea emesis or diarrhea. He also has been urinary symptoms. He however did develop myalgias and felt quite poorly overall. Today the patient is feeling considerably better . Fever has markedly improved nothing more than 100 today. Chills of resolved, energy levels improved. He is able to eat relatively well. No other new symptoms have developed. Computed tomography scan complete. No evidence of any significant intra- abdominal abscess or obstruction. Objective - Vital Signs Vital signs: Vital Signs Temp 98.1 F 11/14/16 15:00 Pulse 89 11/14/16 15:00 Resp 18 11/14/16 15:00 BP 118/70 11/14/16 15:00 Pulse Ox 96 11/14/16 15:00 Intake & Output 11/14/16 11/14/16 11/15/16 06:59 18:59 06:59 Intake Total 950 Balance 950 Intake: Oral 950 Other: # Voids 1 3 # Bowel Movements 0 - Exam Very pleasant 71-year-old male who has had fever chills and rigor and generalized body ache. He does have underlying fibromyalgia and this has worsened this. HEENT: Anicteric conjunctiva are pink and moist nasal mucosa grossly intact without significant lesions, there is no thrush. Neck: The neck is supple without significant lymphadenopathy or thyromegaly. Lungs: Symmetrical air entry with only few basilar crackles no bronchial sounds or egophony or dullness is noted Heart: Regular rate and rhythm with an audible S1-S2, no S3 soft S4. There is no significant murmur click or rub, PMI was nondisplaced. Abdomen: Positive bowel sounds soft and nontender without palpable masses or organomegaly. There was no guarding or rebound. Extremities: The upper extremities have excellent pulses they are symmetric, no significant petechiae or telangiectasia. No splinter hemorrhages were noted. The lower extremities are free from significant edema. The peripheral pulses were 2+ and symmetric. Neuro: Awake alert oriented to person place and time. There are no acute new gross focal sensory motor deficits. - Labs CBC & Chem 7: 11/14/16 08:06 11/14/16 08:06 Labs: Abnormal Lab Results - Last 24 Hours (Table) 11/14/16 11/14/16 11/14/16 Range/Units 07:48 08:06 08:06 Plt Count 111 L (150-450) k/uL Chloride 109 H (98-107) mmol/L POC Glucose (mg/dL) 106 H (75-99) mg/dL 11/14/16 11/14/16 11/14/16 Range/Units 12:21 17:14 20:47 Plt Count (150-450) k/uL Chloride (98-107) mmol/L POC Glucose (mg/dL) 138 H 113 H 148 H (75-99) mg/dL Microbiology - Last 24 Hours (Table) 11/12/16 16:20 Blood Culture - Preliminary Blood No Growth after 48 hours 11/13/16 07:38 Blood Culture - Preliminary Blood No Growth after 24 hours 11/11/16 19:30 Blood Culture Gram Stain - Final Blood Blood Culture - Final Citrobacter freundii Laboratory Results WBC 5.7 k/uL (3.8-10.6) 11/14/16 08:06 RBC 4.78 m/uL (4.30-5.90) 11/14/16 08:06 Hgb 14.7 gm/dL (13.0-17.5) 11/14/16 08:06 Hct 45.0 % (39.0-53.0) 11/14/16 08:06 MCV 94.1 fL (80.0-100.0) 11/14/16 08:06 MCH 30.8 pg (25.0-35.0) 11/14/16 08:06 MCHC 32.7 g/dL (31.0-37.0) 11/14/16 08:06 RDW 15.0 % (11.5-15.5) 11/14/16 08:06 Plt Count 111 k/uL (150-450) L 11/14/16 08:06 Neutrophils % 93 % 11/11/16 19:30 Lymphocytes % 4 % 11/11/16 19:30 Monocytes % 2 % 11/11/16 19:30 Eosinophils % 1 % 11/11/16 19:30 Basophils % 0 % 11/11/16 19:30 Neutrophils # 6.8 k/uL (1.3-7.7) 11/11/16 19:30 Lymphocytes # 0.3 k/uL (1.0-4.8) L 11/11/16 19:30 Monocytes # 0.1 k/uL (0-1.0) 11/11/16 19:30 Eosinophils # 0.0 k/uL (0-0.7) 11/11/16 19:30 Basophils # 0.0 k/uL (0-0.2) 11/11/16 19:30 PT 10.6 sec (9.0-12.0) 11/11/16 19:30 INR 1.1 (<1.2) 11/11/16 19:30 APTT 21.1 sec (22.0-30.0) L 11/11/16 19:30 Sodium 143 mmol/L (137-145) 11/14/16 08:06 Potassium 4.2 mmol/L (3.5-5.1) 11/14/16 08:06 Chloride 109 mmol/L (98-107) H 11/14/16 08:06 Carbon Dioxide 26 mmol/L (22-30) 11/14/16 08:06 Anion Gap 8 mmol/L 11/14/16 08:06 BUN 14 mg/dL (9-20) 11/14/16 08:06 Creatinine 1.10 mg/dL (0.66-1.25) 11/14/16 08:06 Est GFR (MDRD) Af Amer >60 (>60 ml/min/1.73 sqM) 11/14/16 08:06 Est GFR (MDRD) Non-Af >60 (>60 ml/min/1.73 sqM) 11/14/16 08:06 Glucose 99 mg/dL (74-99) 11/14/16 08:06 POC Glucose (mg/dL) 148 mg/dL (75-99) H 11/14/16 20:47 POC Glu Plate Grainer Nyasia Flores 11/14/16 20:47 Plasma Lactic Acid Axel 1.9 mmol/L (0.7-2.0) 11/11/16 19:30 Calcium 8.9 mg/dL (8.4-10.2) 11/14/16 08:06 Total Bilirubin 1.0 mg/dL (0.2-1.3) 11/11/16 19:30 AST 80 U/L (17-59) H 11/11/16 19:30 ALT 90 U/L (21-72) H 11/11/16 19:30 Alkaline Phosphatase 80 U/L (38-126) 11/11/16 19:30 Troponin I <0.012 ng/mL (0.000-0.034) 11/11/16 19:30 Total Protein 7.1 g/dL (6.3-8.2) 11/11/16 19:30 Albumin 4.3 g/dL (3.5-5.0) 11/11/16 19:30 Urine Color Yellow 11/11/16 20:04 Urine Appearance Clear (Clear) 11/11/16 20:04 Urine pH 6.5 (5.0-8.0) 11/11/16 20:04 Ur Specific [place] 1.006 (1.001-1.035) 11/11/16 20:04 Urine Protein 2+ (Negative) H 11/11/16 20:04 Urine Glucose (UA) Negative (Negative) 11/11/16 20:04 Urine Ketones Negative (Negative) 11/11/16 20:04 Urine Blood Negative (Negative) 11/11/16 20:04 Urine Nitrite Negative (Negative) 11/11/16 20:04 Urine Bilirubin Negative (Negative) 11/11/16 20:04 Urine Urobilinogen <2.0 mg/dL (<2.0) 11/11/16 20:04 Ur Leukocyte Esterase Negative (Negative) 11/11/16 20:04 Microbiology 11/12/16 16:20 Blood Blood Culture - Preliminary No Growth after 48 hours 11/13/16 07:38 Blood Blood Culture - Preliminary No Growth after 24 hours 11/11/16 19:30 Blood Blood Culture Gram Stain - Final 11/11/16 19:30 Blood Blood Culture - Final Citrobacter freundii 11/11/16 20:04 Urine,Voided Urine Culture - Final 11/11/16 19:30 Blood Blood Culture - Final - Imaging and Cardiology CT scan - abdomen: image reviewed (No evidence of any significant ductal dilatation in the biliary tract. No intra-abdominal abscess. No colitis. No hydronephrosis.An lymphadenopathy.) Assessment and Plan (1) Fever Narrative/Plan: Very pleasant 71-year-old male presents the emergency center with a sudden onset of high-grade fever chills and worsening body aches and myalgia. He does have a history of fibromyalgia and is on Cymbalta. He over became quite miserable and was brought to hospital. They're concerned because earlier in the summer he had some atypical abdominal pain fevers and was found evidence of acute cholecystitis and taken to to the operating room for his cholecystectomy. Since that time is doing modestly well until recently he started to have the difficulty with the onset of the fever and chill and sweat and calcium presented to Hospital. Workup some process. An infectious diseases evaluation was requested. Computed tomography scan of the abdomen and pelvis been requested since this is often a source of gram-negative bacteremia. Urine cultures in process. Follow blood cultures are process to ensure that he cleared his bacteremia. And are negative so far At this time patient appears to have an intra-abdominal focus of infection. Possibly related to his somewhat recent cholecystectomy. Computed tomography scan failed to reveal evidence of any significant abscess. Urinalysis and culture are negative. At this time no other focus is noted. If remains afebrile overnight May be discharged home in the morning with a course of oral levofloxacin for 10 days to complete the treatment of his Citrobacter bacteremia. Family was wondering about a HIDA scan. With his cholecystectomy would not give a significant information. With a normal total bilirubin does not appear to have significant obstructive process occurring. He has mildly elevated AST and ALT, these were elevated from prior to his surgery. Initially following the outpatient setting after discharge. If there is any further concern MR ERCP or ultrasound ERCP can be done. Status: Acute (2) Gram negative sepsis Status: Acute
[2016-11-14] MEDS: ATORVASTATIN 20 MG TAB PO SCH (21:15)
[2016-11-14] MEDS: NORTRIPTYLINE 25 MG CAP PO SCH (21:15)
[2016-11-15] MEDS: HEPARIN SODIUM,PORCINE 5,000 UNIT/ML 1 ML VIAL SQ SCH ×2 (00:19→08:04)
--- NOTE | 2016-11-15 00:28 | P.PN ---
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 Patient will need an abdominal CAT scan. As with nephrology will obtain a CAT scan of the abdomen with contrast if required pain infectious disease to rule out any intra-abdominal source of infection. Patient denied any fever, chills, nausea, vomiting, abdominal pain, dysuria, cough. 11/14/2016 Patient was febrile today with T-max level of 100.5. Otherwise patient didn't need abdominal pain. No nausea or vomiting. Patient is tolerating by mouth diet. Blood cultures showed Citrobacter bacteremia. No chest pain no short of breath no other acute overnight issues. Objective - Vital Signs Vital signs: Vital Signs Temp 98.1 F 11/14/16 15:00 Pulse 89 11/14/16 15:00 Resp 18 11/14/16 15:00 BP 118/70 11/14/16 15:00 Pulse Ox 96 11/14/16 15:00 Intake & Output 11/14/16 11/14/16 11/15/16 06:59 18:59 06:59 Intake Total 950 Balance 950 Intake: Oral 950 Other: # Voids 1 3 # Bowel Movements 0 - Exam GENERAL: The patient is alert and oriented x3, not in any acute distress. Well developed, well nourished. HEENT: Pupils are round and equally reacting to light. EOMI. No scleral icterus. No conjunctival pallor. Normocephalic, atraumatic. No pharyngeal erythema. No thyromegaly. CARDIOVASCULAR: S1 and S2 present. No murmurs, rubs, or gallops. PULMONARY: Chest is clear to auscultation, no wheezing or crackles. ABDOMEN: Soft, nontender, nondistended, normoactive bowel sounds. No palpable organomegaly. MUSCULOSKELETAL: No joint swelling or deformity. EXTREMITIES: No cyanosis, clubbing, or pedal edema. NEUROLOGICAL: Gross neurological examination did not reveal any focal deficits. SKIN: No rashes. - Labs CBC & Chem 7: 11/14/16 08:06 11/14/16 08:06 Labs: Abnormal Lab Results - Last 24 Hours (Table) 11/14/16 11/14/16 11/14/16 Range/Units 07:48 08:06 08:06 Plt Count 111 L (150-450) k/uL Chloride 109 H (98-107) mmol/L POC Glucose (mg/dL) 106 H (75-99) mg/dL 11/14/16 11/14/16 11/14/16 Range/Units 12:21 17:14 20:47 Plt Count (150-450) k/uL Chloride (98-107) mmol/L POC Glucose (mg/dL) 138 H 113 H 148 H (75-99) mg/dL Microbiology - Last 24 Hours (Table) 11/12/16 16:20 Blood Culture - Preliminary Blood No Growth after 48 hours 11/13/16 07:38 Blood Culture - Preliminary Blood No Growth after 24 hours 11/11/16 19:30 Blood Culture Gram Stain - Final Blood Blood Culture - Final Citrobacter freundii Assessment and Plan Plan: #1 Citrobacter/gram-negative septicemia: source off infection is not clear at this point of time patient has gram-negative bacteremia patient does not appear to have urinary tract infection that of other possible sources intra-abdominal infection counseling that patient had recent abdominal surgery. Patient was switched to Rocephin at this time infectious disease is following. CAT scan of the abdomen with contrast showed no evidence of infection/abscess. Patient was febrile again today with TMax of 100.5. 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 ID is following this patient and spent discharge with by mouth antibiotics if the patient continues to be afebrile. We 'll obtain blood cultures if the patient becomes febrile again. Time with Patient: Greater than 30
[2016-11-15] MEDS: SODIUM CHLORIDE 0.9% 1,000 ML IV SCH (05:51)
[2016-11-15 07:21] LABS: Glucose,Whole Blood 106 mg/dL (75-99)
[2016-11-15 07:27] VITALS: BP 156/74; PULSE 83; RESP 16; TEMP 97
[2016-11-15] MEDS: CARVEDILOL 12.5 MG TAB PO SCH (08:03)
[2016-11-15] MEDS: LACTOBACILLUS ACIDOPH & BULGAR 1 EACH PACKET PO SCH (08:03)
[2016-11-15] MEDS: LISINOPRIL 20 MG TAB PO SCH (08:03)
[2016-11-15] MEDS: TERAZOSIN 2 MG CAP PO SCH (08:03)
[2016-11-15] MEDS: ASPIRIN 81 MG CHEW PO SCH (08:03)
[2016-11-15] MEDS: ALLOPURINOL 100 MG TAB PO SCH (08:04)
[2016-11-15] MEDS: DULoxetine HCL 60 MG CAPSULE.DR PO SCH (08:04)
[2016-11-15] MEDS: MULTIVITAMINS, THERA 1 EACH TAB PO SCH (08:04)
[2016-11-15 12:25] LABS: Glucose,Whole Blood 120 mg/dL (75-99)
--- NOTE | 2016-11-16 00:45 | P.DS ---
Providers Date of admission: 11/11/16 22:02 Expected date of discharge: 11/15/16 Attending physician: Ivan Torres Consults: 11/12/16 15:19 Consult Physician Urgent Consulting Provider: Forrest Terrazas Consult Reason/Comments: sepsis Do you want consulting provider notified?: Yes Primary care physician: Arnaud [facility] Course: #1 Citrobacter/gram-negative septicemia: source of infection is not clear at this point of time patient has gram-negative bacteremia patient does not appear to have urinary tract infection that of other possible sources intra-abdominal infection concerning that patient had recent abdominal surgery. Patient was switched to Rocephin at this time infectious disease is following. CAT scan of the abdomen with contrast showed no evidence of infection/abscess. Patient was febrile again 0n 11/14 with TMax of 100.5. Patient is afebrile last 24 hours. Patient will be discharged on levofloxacin for 10 days as per ID recommendations. 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 Patient will need an abdominal CAT scan. As with nephrology will obtain a CAT scan of the abdomen with contrast if required pain infectious disease to rule out any intra-abdominal source of infection. Patient denied any fever, chills, nausea, vomiting, abdominal pain, dysuria, cough. 11/14/2016 Patient was febrile today with T-max level of 100.5. Otherwise patient didn't need abdominal pain. No nausea or vomiting. Patient is tolerating by mouth diet. Blood cultures showed Citrobacter bacteremia. No chest pain no short of breath no other acute overnight issues. 11/15/2016 Patient has been afebrile last 12 hours. Denied any abdominal pain nausea or vomiting. patient is being discharged home in stable condition. Continue with the oral antibiotics for 10 more days. Patient Condition at Discharge: Fair Plan - Discharge Summary New Discharge Prescriptions: New Lactobacillus Acidoph & Bulgar [Lactinex] 1 each PO TID #30 packet Levofloxacin [Levaquin] 500 mg PO DAILY #10 tab Continue Ubidecarenone [Co Q-10] 100 mg PO DAILY Multivitamins, Thera [Multivitamin (formulary)] 1 tab PO DAILY Aspirin [Adult Low Dose Aspirin EC] 162 mg PO DAILY Nitroglycerin Sl Tabs [Nitrostat] 0.4 mg SUBLINGUAL Q5M PRN PRN Reason: Chest Pain LORazepam [Ativan] 1 mg PO TID PRN PRN Reason: Anxiety Ergocalciferol [Vitamin D2 (DRISDOL)] 50,000 unit PO Q14D Rosuvastatin [Crestor] 10 mg PO HS Nortriptyline HCl [Pamelor] 50 mg PO HS Liraglutide [Victoza 2-Seferino] 0.6 mg SQ DAILY DULoxetine HCL [Cymbalta] 60 mg PO DAILY Allopurinol [Zyloprim] 100 mg PO BID Lisinopril [Zestril] 40 mg PO DAILY Furosemide [Lasix] 20 mg PO SUTUWETHSA Terazosin HCl 2 mg PO BID Carvedilol [Coreg] 25 mg PO BID Garner-3/Dha/Epa/Fish Oil [Fish Oil 1,360 mg Softgel] 1 cap PO DAILY Furosemide [Lasix] 40 mg PO MOFR Discharge Medication List Allopurinol [Zyloprim] 100 mg PO BID 09/25/16 [History] Aspirin [Adult Low Dose Aspirin EC] 162 mg PO DAILY 09/25/16 [History] Carvedilol [Coreg] 25 mg PO BID 09/25/16 [History] DULoxetine HCL [Cymbalta] 60 mg PO DAILY 09/25/16 [History] Ergocalciferol [Vitamin D2 (DRISDOL)] 50,000 unit PO Q14D 09/25/16 [History] Furosemide [Lasix] 20 mg PO SUTUWETHSA 09/25/16 [History] LORazepam [Ativan] 1 mg PO TID PRN 09/25/16 [History] Liraglutide [Victoza 2-Seferino] 0.6 mg SQ DAILY 09/25/16 [History] Lisinopril [Zestril] 40 mg PO DAILY 09/25/16 [History] Multivitamins, Thera [Multivitamin (formulary)] 1 tab PO DAILY 09/25/16 [History ] Nitroglycerin Sl Tabs [Nitrostat] 0.4 mg SUBLINGUAL Q5M PRN 09/25/16 [History] Nortriptyline HCl [Pamelor] 50 mg PO HS 06/25/17 [History] Garner-3/Dha/Epa/Fish Oil [Fish Oil 1,360 mg Softgel] 1 cap PO DAILY 09/25/16 [ History] Rosuvastatin [Crestor] 10 mg PO HS 09/25/16 [History] Terazosin HCl 2 mg PO BID 09/25/16 [History] Ubidecarenone [Co Q-10] 100 mg PO DAILY 09/25/16 [History] Furosemide [Lasix] 40 mg PO MOFR 11/11/16 [History] Lactobacillus Acidoph & Bulgar [Lactinex] 1 each PO TID #30 packet 11/15/16 [Rx] Levofloxacin [Levaquin] 500 mg PO DAILY #10 tab 11/15/16 [Rx] Follow up Appointment(s)/Referral(s): Arnaud Gonsalez MD [Primary Care Provider] - 3 Days (Office phoned and they state that patient has to make their own appointment. ) Ambulatory/Diagnostic Orders: Complete Blood Count w/diff [LAB.AMB] Time Frame: 3 Days, Location: Determined By Patient Patient Instructions/Handouts: Fever in Adults (ED), Pneumonia (ED) Discharge Disposition: HOME SELF-CARE
== END 2016-11-15 13:39 | disposition home or self-care (01) | DRG 872 ==
LOC: EC 18:54 → 5MS5E 22:02 → 6SEL 23:00 → 4MS4W 11-12 16:39
PROVIDERS: ADMIT Hospitalist; ATTEND Hospitalist
DX: A41.50 Gram-negative sepsis, unspecified (principal); E11.22 Type 2 diabetes mellitus with diabetic chronic kidney disease; N18.3 Chronic kidney disease, stage 3 (moderate); J98.11 Atelectasis; I10 Essential (primary) hypertension; N05.1 Unspecified nephritic syndrome with focal and segmental glomerular lesions; M79.7 Fibromyalgia; I25.2 Old myocardial infarction; E78.5 Hyperlipidemia, unspecified; F41.9 Anxiety disorder, unspecified; Z79.84 Long term (current) use of oral hypoglycemic drugs; Z79.82 Long term (current) use of aspirin; Z79.899 Other long term (current) drug therapy
CPT/HCPCS: 36415; 71010; 74177; 80048; 80053; 81001; 83605; 84484; 85025; 85027; 85610; 85730; 87040; 87077; 87086; 87186; 93005; 94760; 96361; 96365; 96367; 99285

== ENCOUNTER → 2016-11-18 | Outpatient (CLI) | payer MEDICARE, BC ==
[2016-11-18 11:31] LABS: Calcium 9.3 mg/dL (8.4-10.2); Potassium 4.6 mmol/L (3.5-5.1); Total Bilirubin 0.6 mg/dL (0.2-1.3)
[2016-11-18 11:35] LABS: Basophils # (A) 0.1 k/uL (0-0.2); Basophils % (A) 1 %; CH 32.2; CHCM 34.8; Eosinophils # (A) 0.2 k/uL (0-0.7); Eosinophils % (A) 3 %; HCT 45.7 % (39.0-53.0); HDW 2.93; HGB 15.2 gm/dL (13.0-17.5); Luc # (Auto) 0.19; Luc % (Auto) 3; Lymphocytes # (A) 1.7 k/uL (1.0-4.8); Lymphocytes % (A) 26 %; MCHC 33.3 g/dL (31.0-37.0); MCV 93.2 fL (80.0-100.0); Mean Platelet Volume 7.9; Monocytes # (A) 0.4 k/uL (0-1.0); Monocytes % (A) 6 %; Neutrophils # (A) 3.8 k/uL (1.3-7.7); Neutrophils % (A) 60 %; RBC 4.91 m/uL (4.30-5.90); RDW 15.1 % (11.5-15.5); WBC 6.3 k/uL (3.8-10.6); WBC (Perox) 6.09
== END | disposition home or self-care (01) ==
LOC: LABWHC1 10:57
PROVIDERS: ATTEND Nurse Practitioner
DX: R79.89 Other specified abnormal findings of blood chemistry (principal); N18.9 Chronic kidney disease, unspecified; B96.89 Other specified bacterial agents as the cause of diseases classified elsewhere
CPT/HCPCS: 36415; 80053; 85025

== ENCOUNTER 2016-12-29 19:12 | Inpatient (IN) | payer MEDICARE, BC ==
[2016-12-29] MEDS ORDERED: IBUPROFEN 600 MG TAB PO STA (19:30)
[2016-12-29] MEDS ORDERED: ACETAMINOPHEN TAB 500 MG TAB PO STA (19:30)
[2016-12-29] MEDS ORDERED: VANCOMYCIN IV PER PHARMACY 1 EACH MISC MISCELLANE PRN (19:30)
[2016-12-29] MEDS ORDERED: LEVOFLOXACIN 750MG-D5W PMX 750 MG in DEXTROSE/WATER 1 150ML.BAG IVPB STA (19:32)
[2016-12-29 19:53] LABS: Basophils % (A) 1 %; CH 31.7; CHCM 34.4; Eosinophils # (A) 0.1 k/uL (0-0.7); Eosinophils % (A) 2 %; HCT 45.2 % (39.0-53.0); HDW 2.79; HGB 15.2 gm/dL (13.0-17.5); Luc # (Auto) 0.03; Luc % (Auto) 1; Lymphocytes # (A) 0.4 k/uL (1.0-4.8); Lymphocytes % (A) 6 %; MCH 31.1 pg (25.0-35.0); MCHC 33.6 g/dL (31.0-37.0); MCV 92.4 fL (80.0-100.0); Mean Platelet Volume 8.1; Monocytes # (A) 0.3 k/uL (0-1.0); Monocytes % (A) 5 %; Neutrophils # (A) 5.7 k/uL (1.3-7.7); Neutrophils % (A) 87 %; RBC 4.89 m/uL (4.30-5.90); RDW 14.1 % (11.5-15.5); WBC 6.6 k/uL (3.8-10.6)
[2016-12-29] MEDS: SODIUM CHLORIDE 0.9% 500 ML IV SCH ×3 (19:56→22:39)
[2016-12-29 20:02] LABS: Prothrombin Time 10.6 sec (9.0-12.0)
[2016-12-29] MEDS ORDERED: VANCOMYCIN 1,750 MG in SODIUM CHLORIDE 0.9% 250 ML IVPB STA (20:04)
[2016-12-29 20:13] LABS: ALT 67 U/L (21-72); AST 35 U/L (17-59); Alkaline Phosphatase 87 U/L (38-126); Anion Gap 12 mmol/L; Blood Urea Nitrogen 25 mg/dL (9-20); Calcium 9.5 mg/dL (8.4-10.2); Carbon Dioxide 22 mmol/L (22-30); Chloride 105 mmol/L (98-107); Glucose 139 mg/dL (74-99); Non-African American GFR(MDRD) 50 (>60 ml/min/1.73 sqM); Potassium 4.4 mmol/L (3.5-5.1); Sodium 139 mmol/L (137-145); Total Bilirubin 0.7 mg/dL (0.2-1.3); Total Protein 7.1 g/dL (6.3-8.2)
--- NOTE | 2016-12-29 20:26 | ED ---
Fever HPI - General Chief Complaint: Fever Stated Complaint: shaking Time Seen by Provider: 12/29/16 19:15 Source: EMS, RN notes reviewed, old records reviewed Mode of arrival: EMS Limitations: no limitations - History of Present Illness Initial Comments: This is a 71-year-old male presents emergency Department chief complaint of fever and chills for one day. He also reports he has a mild headache rated a 3 out of 10. Denies any neurological deficits or weakness. Patient reports he's had a history of sepsis in September and also in November. Patient reports that he grows Citrobacter, but does not have an exact source of this infection. Patient reports that he finished Levaquin approximately one month ago. Patient reports that he's had no other symptoms including cough, or abdominal pain. Denies any urinary symptoms. Patient states that he had a normal bowel movement earlier today. He reports the fever and chills all started this afternoon into this evening. Patient has had no recent Motrin or Tylenol. He did arrive to the emergency Department via EMS. - Related Data Home Medications Medication Instructions Recorded Confirmed Allopurinol [Zyloprim] 100 mg PO BID 09/25/16 12/29/16 Aspirin [Adult Low Dose Aspirin EC] 81 mg PO BID 09/25/16 12/29/16 Carvedilol [Coreg] 25 mg PO BID 09/25/16 12/29/16 DULoxetine HCL [Cymbalta] 60 mg PO DAILY 09/25/16 12/29/16 Ergocalciferol [Vitamin D2 50,000 unit PO Q14D 09/25/16 12/29/16 (DRISDOL)] Furosemide [Lasix] 20 mg PO SUTUWETHSA 09/25/16 12/29/16 LORazepam [Ativan] 1 mg PO TID PRN 09/25/16 12/29/16 Liraglutide [Victoza 2-Seferino] 0.6 mg SQ DAILY 09/25/16 12/29/16 Lisinopril [Zestril] 40 mg PO DAILY 09/25/16 12/29/16 Multivitamins, Thera [Multivitamin 1 tab PO DAILY 09/25/16 12/29/16 (formulary)] Nitroglycerin Sl Tabs [Nitrostat] 0.4 mg SUBLINGUAL Q5M PRN 09/25/16 12/29/16 Nortriptyline HCl [Pamelor] 50 mg PO HS 09/25/16 12/29/16 [place]-3/Dha/Epa/Fish Oil [Fish Oil 1 cap PO DAILY 09/25/16 12/29/16 1,360 mg Softgel] Rosuvastatin [Crestor] 10 mg PO HS 09/25/16 12/29/16 Terazosin HCl 2 mg PO BID 09/25/16 12/29/16 Ubidecarenone [Co Q-10] 100 mg PO DAILY 09/25/16 12/29/16 Furosemide [Lasix] 40 mg PO MOFR 11/11/16 12/29/16 Allergies Allergy/AdvReac Type Severity Reaction Status Date / Time adhesive tape Allergy Rash/Hives Verified 12/29/16 20:20 Penicillins Allergy Itching Verified 12/29/16 20:20 prednisone AdvReac DEPRESSION Verified 12/29/16 20:20 WITH LARGE DOSES Review of Systems ROS Statement: Those systems with pertinent positive or pertinent negative responses have been documented in the HPI. ROS Other: All systems not noted in ROS Statement are negative. Past Medical History Past Medical History: Diabetes Mellitus, Fibromyalgia, Hyperlipidemia, Hypertension, Myocardial Infarction ([place]), Renal Disease Additional Past Medical History / Comment(s): transient global amnesia Last Myocardial Infarction Date:: 2010 History of Any Multi-Drug Resistant Organisms: None Reported Past Surgical History: Adenoidectomy, Cholecystectomy, Heart Catheterization With Stent Past Anesthesia/Blood Transfusion Reactions: No Reported Reaction Date of Last Stent Placement:: 2010 Past Psychological History: Anxiety Smoking Status: Never smoker Past Alcohol Use History: None Reported Past Drug Use History: None Reported - Past Family History Father Family Medical History: Blood Disorder (thrombocytopenia, had splenectomy) Mother Family Medical History: Cancer General Exam - General Exam Comments Initial Comments: 71-year-old male. Patient does appear to be in discomfort and is having active rigors. Limitations: no limitations General appearance: alert, in no apparent distress Head exam: Present: atraumatic, normocephalic, normal inspection Eye exam: Present: normal appearance, PERRL, EOMI. Absent: scleral icterus, conjunctival injection, periorbital swelling ENT exam: Present: normal exam, mucous membranes moist Neck exam: Present: normal inspection. Absent: tenderness, meningismus, lymphadenopathy Respiratory exam: Present: normal lung sounds bilaterally. Absent: respiratory distress, wheezes, rales, rhonchi, stridor Cardiovascular Exam: Present: regular rate, normal rhythm, tachycardia, normal heart sounds. Absent: systolic murmur, diastolic murmur, rubs, gallop, clicks GI/Abdominal exam: Present: soft, normal bowel sounds. Absent: distended, tenderness, guarding, rebound, rigid Extremities exam: Present: normal inspection, full ROM, normal capillary refill. Absent: tenderness, pedal edema, joint swelling, calf tenderness Back exam: Present: normal inspection Neurological exam: Present: alert, oriented X3, CN II-XII intact Psychiatric exam: Present: normal affect, normal mood Skin exam: Present: warm, dry, intact, normal color. Absent: rash Course Vital Signs 12/29/16 12/29/16 19:23 20:03 Temperature 102.0 F H Pulse Rate 114 H 116 H Respiratory 18 18 Rate Blood Pressure 172/95 160/87 O2 Sat by Pulse 97 95 Oximetry - Reevaluation(s) Reevaluation #1: 12/29/16 20:59 Patient is reevaluated this time informed of all his test results. Patient continues to be tachycardic in 114 bpm. Temperature was rechecked and was 101.9. Patient reports that his headache is still 4 out of 10. Patient reports it seemed to help for a little bit while his was rubbing his neck. Patient states that he he does still feel very anxious at this time. Patient was also given 1 mg of Ativan. Medical Decision Making - Medical Decision Making 71-year-old male with a history of bacteremia presents emergency department with 1 day of rigors and fever. Patient denies emergency department fever 102.1. Tachycardic at 160 beats were minute. Patient was given IV fluids, Motrin and Tylenol. Patient chest x-ray was reviewed and negative for any acute process. He has no other focal symptoms including abdominal tenderness. No meningeal signs. Patient labwork was reviewed and are all within normal limits. Given patient's history of bacteremia is concerned for a recurrence of sepsis. Patient was started on IV vancomycin and Levaquin. Patient was given 3 L of fluids and on maintenance dosing. Patient be admitted to [facility]. - Lab Data Result diagrams: 12/29/16 19:40 12/29/16 19:40 Lab Results 12/29/16 12/29/16 12/29/16 Range/Units 19:40 19:40 19:40 WBC 6.6 (3.8-10.6) k/uL RBC 4.89 (4.30-5.90) m/uL Hgb 15.2 (13.0-17.5) gm/dL Hct 45.2 (39.0-53.0) % MCV 92.4 (80.0-100.0) fL MCH 31.1 (25.0-35.0) pg MCHC 33.6 (31.0-37.0) g/dL RDW 14.1 (11.5-15.5) % Plt Count 100 L (150-450) k/uL Neutrophils % 87 % Lymphocytes % 6 % Monocytes % 5 % Eosinophils % 2 % Basophils % 1 % Neutrophils # 5.7 (1.3-7.7) k/uL Lymphocytes # 0.4 L (1.0-4.8) k/uL Monocytes # 0.3 (0-1.0) k/uL Eosinophils # 0.1 (0-0.7) k/uL Basophils # 0.0 (0-0.2) k/uL PT (9.0-12.0) sec INR (<1.2) APTT (22.0-30.0) sec Sodium 139 (137-145) mmol/L Potassium 4.4 (3.5-5.1) mmol/L Chloride 105 (98-107) mmol/L Carbon Dioxide 22 (22-30) mmol/L Anion Gap 12 mmol/L BUN 25 H (9-20) mg/dL Creatinine 1.40 H (0.66-1.25) mg/dL Est GFR (MDRD) Af Amer >60 (>60 ml/min/1.73 sqM) Est GFR (MDRD) Non-Af 50 (>60 ml/min/1.73 sqM) Glucose 139 H (74-99) mg/dL Plasma Lactic Acid Axel 2.0 (0.7-2.0) mmol/L Calcium 9.5 (8.4-10.2) mg/dL Total Bilirubin 0.7 (0.2-1.3) mg/dL AST 35 (17-59) U/L ALT 67 (21-72) U/L Alkaline Phosphatase 87 (38-126) U/L Troponin I (0.000-0.034) ng/mL Total Protein 7.1 (6.3-8.2) g/dL Albumin 4.1 (3.5-5.0) g/dL Urine Color Urine Appearance (Clear) Urine pH (5.0-8.0) Ur Specific [place] (1.001-1.035) Urine Protein (Negative) Urine Glucose (UA) (Negative) Urine Ketones (Negative) Urine Blood (Negative) Urine Nitrite (Negative) Urine Bilirubin (Negative) Urine Urobilinogen (<2.0) mg/dL Ur Leukocyte Esterase (Negative) Urine RBC (0-5) /hpf Urine WBC (0-5) /hpf Urine Bacteria (None) /hpf Hyaline Casts (0-2) /lpf Urine Mucus (None) /hpf 12/29/16 12/29/16 12/29/16 Range/Units 19:40 19:40 20:01 WBC (3.8-10.6) k/uL RBC (4.30-5.90) m/uL Hgb (13.0-17.5) gm/dL Hct (39.0-53.0) % MCV (80.0-100.0) fL MCH (25.0-35.0) pg MCHC (31.0-37.0) g/dL RDW (11.5-15.5) % Plt Count (150-450) k/uL Neutrophils % % Lymphocytes % % Monocytes % % Eosinophils % % Basophils % % Neutrophils # (1.3-7.7) k/uL Lymphocytes # (1.0-4.8) k/uL Monocytes # (0-1.0) k/uL Eosinophils # (0-0.7) k/uL Basophils # (0-0.2) k/uL PT 10.6 (9.0-12.0) sec INR 1.0 (<1.2) APTT 23.0 (22.0-30.0) sec Sodium (137-145) mmol/L Potassium (3.5-5.1) mmol/L Chloride (98-107) mmol/L Carbon Dioxide (22-30) mmol/L Anion Gap mmol/L BUN (9-20) mg/dL Creatinine (0.66-1.25) mg/dL Est GFR (MDRD) Af Amer (>60 ml/min/1.73 sqM) Est GFR (MDRD) Non-Af (>60 ml/min/1.73 sqM) Glucose (74-99) mg/dL Plasma Lactic Acid Axel (0.7-2.0) mmol/L Calcium (8.4-10.2) mg/dL Total Bilirubin (0.2-1.3) mg/dL AST (17-59) U/L ALT (21-72) U/L Alkaline Phosphatase (38-126) U/L Troponin I <0.012 (0.000-0.034) ng/mL Total Protein (6.3-8.2) g/dL Albumin (3.5-5.0) g/dL Urine Color Light Yellow Urine Appearance Clear (Clear) Urine pH 6.0 (5.0-8.0) Ur Specific [place] 1.007 (1.001-1.035) Urine Protein 3+ H (Negative) Urine Glucose (UA) Negative (Negative) Urine Ketones Negative (Negative) Urine Blood Negative (Negative) Urine Nitrite Negative (Negative) Urine Bilirubin Negative (Negative) Urine Urobilinogen <2.0 (<2.0) mg/dL Ur Leukocyte Esterase Negative (Negative) Urine RBC <1 (0-5) /hpf Urine WBC 1 (0-5) /hpf Urine Bacteria Rare H (None) /hpf Hyaline Casts 1 (0-2) /lpf Urine Mucus Rare H (None) /hpf 12/29/16 20:28 EKG shows sinus tachycardia. Evidence of previous anterior infarct. Evidence of ventricular rate of 1 14 bpm. MI interval 206 most seconds. QRS duration 106 most seconds. QT QTc is 360/435 ms. - Radiology Data Radiology results: report reviewed X-rays reviewed and negative for any acute process. Disposition Clinical Impression: Fever, Tachycardia, History of sepsis Disposition: ADMITTED IP TO THIS HOSP Condition: Stable Referrals: Arnaud Gonsalez MD [Primary Care Provider] - 1-2 days Time of Disposition: 21:01
[2016-12-29 20:32] LABS: Appearance,Urine Clear (Clear); Bacteria,Urine Rare /hpf; Bilirubin,Urine Negative (Negative); Glucose,Urine (UA) Negative (Negative); Ketones,Urine Negative (Negative); Leukocyte Esterase,Urine Negative (Negative); Mucus,Urine Rare /hpf; Nitrite,Urine Negative (Negative); Particle Count 703; Protein,Urine 3+ (Negative); RBC,Urine <1 /hpf (0-5); Specific Gravity,Urine 1.007 (1.001-1.035); UA Billing (MACRO vs. MICRO) MICRO; Urobilinogen,Urine <2.0 mg/dL (<2.0); WBC,Urine 1 /hpf (0-5)
--- NOTE | 2016-12-29 20:43 | XR ---
EXAMINATION TYPE: XR chest 2V DATE OF EXAM: 12/29/2016 COMPARISON: 11/11/2016 HISTORY: Fever TECHNIQUE: Frontal and lateral views of the chest are obtained. FINDINGS: There is no heart failure nor confluent pneumonic infiltrate. There are chest leads. There is no sign of pleural effusion. Bony thorax is intact. IMPRESSION: No active cardiopulmonary disease. No change.
[2016-12-29] MEDS ORDERED: LORazepam 2 MG/ML INJ IV STA (20:54)
[2016-12-29] MEDS ORDERED: NALOXONE 0.4 MG/ML 1 ML VIAL IV PRN (21:02)
[2016-12-29] MEDS ORDERED: cefTRIAXone 2 MG in SODIUM CHLORIDE 0.9% 50 ML IVPB SCH (22:00)
[2016-12-29] MEDS ORDERED: NITROGLYCERIN SL TABS 0.4 MG TAB SUBLINGUAL PRN (22:16)
[2016-12-29 22:47] LABS: Rheumatoid Factor, Qnt <9 IU/mL (<12)
[2016-12-29 22:48] LABS: C Reactive Protein <5.0 mg/L (<10.0)
[2016-12-29] MEDS: SODIUM CHLORIDE 0.9% 1,000 ML IV SCH (23:05)
[2016-12-29] MEDS: NORTRIPTYLINE 25 MG CAP PO SCH (23:06)
[2016-12-29] MEDS: cefTRIAXone 2,000 MG in SODIUM CHLORIDE 0.9% 100 ML IVPB SCH (23:06)
[2016-12-29] MEDS: ATORVASTATIN 20 MG TAB PO SCH (23:07)
[2016-12-29] MEDS: TERAZOSIN 2 MG CAP PO SCH (23:07)
[2016-12-29] MEDS: DULoxetine HCL 60 MG CAPSULE.DR PO SCH (23:07)
[2016-12-29] MEDS: FUROSEMIDE 20 MG TAB PO SCH (23:08)
[2016-12-30 00:36] VITALS: BMI 29.2
[2016-12-30] MEDS: LORazepam 1 MG TAB PO PRN ×2 (00:38→08:15)
[2016-12-30] MEDS: CARVEDILOL 12.5 MG TAB PO SCH ×3 (01:30→20:22)
[2016-12-30] MEDS: SODIUM CHLORIDE 0.9% 1,000 ML IV SCH ×3 (05:34→23:12)
--- NOTE | 2016-12-30 06:04 | P.HPIM ---
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 His first admission earlier this year the patient was admitted with sepsis found secondary to be due to an acute cholecystitis and had a laparoscopic cholecystectomy performed, on his last admission the patient presented again with similar presentation symptoms and was at that time found to have gram-negative bacteremia with Citrobacter and was subsequently discharged home after receiving IV antibiotics during that hospital physician with Rocephin and later switched to oral Levaquin at time of discharge. During that visit he was seen by infectious disease Dr. Thao. Today on presentation the patient is complaining of the exact same symptoms which include severe rigors and sweats fevers and chills and diffuse myalgias and headache, he denies any cough runny nose sore throat, shortness of breath, nausea vomiting but mentions some diarrhea 2 days ago which has since resolved again similar to his previous presentation. The patient denies any appearance of any new lesions or rashes denies any sick contacts or recent travel. In the ER the patient was noted to be febrile, T-max 102, and tachycardic with a normal white count. Chest x-ray was normal and urinalysis showed protein mucus and rare bacteria Review of Systems All other 14 point review of systems are negative except per HPI Past Medical History Past Medical History: Diabetes Mellitus, Fibromyalgia, Hyperlipidemia, Hypertension, Myocardial Infarction ([place]), Renal Disease Additional Past Medical History / Comment(s): transient global amnesia Last Myocardial Infarction Date:: 2010 History of Any Multi-Drug Resistant Organisms: None Reported Past Surgical History: Adenoidectomy, Cholecystectomy, Heart Catheterization With Stent Past Anesthesia/Blood Transfusion Reactions: No Reported Reaction Date of Last Stent Placement:: 2010 Past Psychological History: Anxiety Smoking Status: Never smoker Past Alcohol Use History: None Reported Past Drug Use History: None Reported - Past Family History Father Family Medical History: Blood Disorder (thrombocytopenia, had splenectomy) Mother Family Medical History: Cancer Medications and Allergies Home Medications Medication Instructions Recorded Confirmed Type Allopurinol [Zyloprim] 100 mg PO BID 09/25/16 12/29/16 History Aspirin [Adult Low Dose Aspirin EC] 81 mg PO BID 09/25/16 12/29/16 History Carvedilol [Coreg] 25 mg PO BID 09/25/16 12/29/16 History DULoxetine HCL [Cymbalta] 60 mg PO DAILY 09/25/16 12/29/16 History Ergocalciferol [Vitamin D2 50,000 unit PO Q14D 09/25/16 12/29/16 History (DRISDOL)] Furosemide [Lasix] 20 mg PO SUTUWETHSA 09/25/16 12/29/16 History LORazepam [Ativan] 1 mg PO TID PRN 09/25/16 12/29/16 History Liraglutide [Victoza 2-Seferino] 0.6 mg SQ DAILY 09/25/16 12/29/16 History Lisinopril [Zestril] 40 mg PO DAILY 09/25/16 12/29/16 History Multivitamins, Thera [Multivitamin 1 tab PO DAILY 09/25/16 12/29/16 History (formulary)] Nitroglycerin Sl Tabs [Nitrostat] 0.4 mg SUBLINGUAL Q5M PRN 09/25/16 12/29/16 History Nortriptyline HCl [Pamelor] 50 mg PO HS 09/25/16 12/29/16 History [place]-3/Dha/Epa/Fish Oil [Fish Oil 1 cap PO DAILY 09/25/16 12/29/16 History 1,360 mg Softgel] Rosuvastatin [Crestor] 10 mg PO HS 09/25/16 12/29/16 History Terazosin HCl 2 mg PO BID 09/25/16 12/29/16 History Ubidecarenone [Co Q-10] 100 mg PO DAILY 09/25/16 12/29/16 History Furosemide [Lasix] 40 mg PO MOFR 11/11/16 12/29/16 History Allergies Allergy/AdvReac Type Severity Reaction Status Date / Time adhesive tape Allergy Rash/Hives Verified 12/29/16 20:20 Penicillins Allergy Itching Verified 12/29/16 20:20 prednisone AdvReac DEPRESSION Verified 12/29/16 20:20 WITH LARGE DOSES Physical Exam Vitals: Vital Signs Temp Pulse Resp BP Pulse Ox 12/29/16 21:00 123 H 20 149/83 97 12/29/16 20:03 116 H 18 160/87 95 12/29/16 19:23 102.0 F H 114 H 18 172/95 97 Intake and Output 12/29/16 12/29/16 12/29/16 06:59 14:59 22:59 Other: Weight 87.09 kg Patient Weight 12/30/16 06:59 Weight 87.09 kg Constitutional: No acute distress, conversant, pleasant Eyes: Anicteric sclerae, moist conjunctiva, no lid-lag, PERRLA ENMT: NC/AT,Oropharynx clear, no erythema, exudates Neck:Supple, FROM, no masses, or JVD, No carotid bruits; No thyromegaly Lungs: Clear to auscultation, Clear to percussion, Normal respiratory effort, no accessory muscle use Cardiovascular: Heart regular in rate and rhythm, No murmurs, gallops, or rubs no peripheral edema Abdominal: Soft Nontender, nom distended, no guarding, no rebound or rigidity, Normoactive bowel sounds No hepatomegaly, No splenomegaly, No palpable mass No abdominal wall hernia noted Skin: Normal temperature, tone, texture, turgor, No induration No subcutaneous nodules, No rash, lesions, No ulcers Extremities:No digital cyanosis No clubbing, Pedal pulses intact and symmetrical Radial pulses intact and symmetrical Normal gait and station, No calf tenderness Psychiatric: Alert and oriented to person, place and time, Appropriate affect Intact judgement Neuro: Muscles Strength 5/5 in all 4 extremities, Sensation to light touch grossly present throughout, Cranial nerves II-XII grossly intact. No focal sensory deficits Results CBC & Chem 7: 12/29/16 19:40 12/29/16 19:40 Labs: Abnormal Lab Results - Last 24 Hours (Table) 12/29/16 12/29/16 12/29/16 Range/Units 19:40 19:40 20:01 Plt Count 100 L (150-450) k/uL Lymphocytes # 0.4 L (1.0-4.8) k/uL BUN 25 H (9-20) mg/dL Creatinine 1.40 H (0.66-1.25) mg/dL Glucose 139 H (74-99) mg/dL Urine Protein 3+ H (Negative) Urine Bacteria Rare H (None) /hpf Urine Mucus Rare H (None) /hpf Assessment and Plan (1) Fever of unknown origin Status: Acute (2) Systemic inflammatory response syndrome (SIRS) Status: Acute (3) Essential hypertension Status: Acute (4) Chronic kidney disease, stage 3a Status: Acute (5) Type 2 diabetes mellitus Status: Acute (6) Focal segmental glomerulosclerosis Status: Acute Plan: The patient is admitted to the medical floor placed on telemetry anticipated greater than 2 midnight stay with fever of non-unknown origin and sirs concerning for possible underlying sepsis given history of previous gram- negative bacteremia with Citrobacter. The patient is given aggressive IV fluids and was started on Levaquin and vancomycin in the ER. Given patient's underlying chronic kidney disease electrolytes and was discontinued prior to initiation. We'll continue empiric IV antibiotic therapy with Rocephin and will consult infectious disease Dr. Thao for further recommendations. Follow up blood culture and influenza Will order a rheumatoid factor ESR CRP TSH, HIV. We'll continue supportive treatment and continue to monitor his clinical course will await input from consultants
[2016-12-30] MEDS: ACETAMINOPHEN TAB 325 MG TAB PO PRN ×2 (06:26→14:34)
[2016-12-30 07:15] LABS: Glucose,Whole Blood 119 mg/dL (75-99)
[2016-12-30 07:39] LABS: Basophils % (A) 0 %; CH 31.4; CHCM 33.8; Eosinophils # (A) 0.1 k/uL (0-0.7); Eosinophils % (A) 1 %; HCT 40.2 % (39.0-53.0); HDW 2.78; HGB 13.5 gm/dL (13.0-17.5); Luc % (Auto) 1; Lymphocytes # (A) 0.5 k/uL (1.0-4.8); Lymphocytes % (A) 6 %; MCH 31.3 pg (25.0-35.0); MCHC 33.5 g/dL (31.0-37.0); MCV 93.2 fL (80.0-100.0); Mean Platelet Volume 7.2; Monocytes # (A) 0.5 k/uL (0-1.0); Monocytes % (A) 6 %; Neutrophils # (A) 7.3 k/uL (1.3-7.7); Neutrophils % (A) 85 %; RBC 4.31 m/uL (4.30-5.90); RDW 14.2 % (11.5-15.5); WBC 8.5 k/uL (3.8-10.6); WBC (Perox) 9.21
[2016-12-30 07:50] LABS: Anion Gap 8 mmol/L; Blood Urea Nitrogen 22 mg/dL (9-20); Calcium 7.9 mg/dL (8.4-10.2); Carbon Dioxide 21 mmol/L (22-30); Chloride 110 mmol/L (98-107); Glucose 122 mg/dL (74-99); Non-African American GFR(MDRD) 52 (>60 ml/min/1.73 sqM); Potassium 4.2 mmol/L (3.5-5.1); Sodium 139 mmol/L (137-145)
[2016-12-30] MEDS: DULoxetine HCL 60 MG CAPSULE.DR PO SCH (08:18)
[2016-12-30] MEDS: MULTIVITAMINS, THERA 1 EACH TAB PO SCH (08:19)
[2016-12-30] MEDS: TERAZOSIN 2 MG CAP PO SCH ×2 (08:19→20:22)
[2016-12-30] MEDS: LISINOPRIL 20 MG TAB PO SCH (08:19)
[2016-12-30] MEDS ORDERED: NON-FORMULARY DRUG (Ubidecarenone [Co Q-10] 100 MG) PO SCH (09:00)
[2016-12-30 11:45] LABS: Glucose,Whole Blood 127 mg/dL (75-99)
[2016-12-30] MEDS ORDERED: VANCOMYCIN 1,500 MG in SODIUM CHLORIDE 0.9% 250 ML IVPB SCH (12:00)
[2016-12-30] MEDS: LIRAGLUTIDE 0.6 MG SQ SCH (16:14)
[2016-12-30 16:45] LABS: Glucose,Whole Blood 113 mg/dL (75-99)
--- NOTE | 2016-12-30 16:56 | P.CONS ---
History of Present Illness - Reason for Consult Consult date: 12/30/16 - Chief Complaint Fever - History of Present Illness 71-year-old male presents to the emergency center with a relatively short history of high-grade fever chills or myalgias. He has a very pertinent recent past medical history in that he had a bout of sepsis earlier in the summer. Workup at that time revealed evidence of acute cholecystitis and was taken to the operating room and a cholecystectomy was performed. Afterwards he had gradual resolution of his symptoms and resolved his sepsis. He recovered from his surgery. He was well enough to go to a vacation in [place]. He felt well during that time. However upon returning home he started to have the symptoms of the fever and chills reminiscent of how he felt earlier in the summer. Because of that he was brought to the emergency center. Cultures been performed and gram-negative bacilli was isolated and Citrobacter was found. Susceptible to quinolone and he was discharged on levofloxacin therapy. He's done well over the last 3 weeks after antibiotics completed. There were now again presents with high-grade fever and chill associated with rigor as well as myalgias and headache. Again feeling quite similar to how he felt before. In the emergency center influenza testing is come back as negative. Blood cultures are positive for gram-negative bacilli. Case is discussed with hospitalist. Review of Systems Patient has had fever with chills and myalgia HEENT:Denies headache or acute visual change. Denies sinus or mouth discomforts. Denies neck stiffness or pain. Denies significant oral cavity pain. Denies difficulty on swallowing. Lungs: Denies significant shortness of breath, cough, sputum production, or hemoptysis. Cardiovascular: Denies significant shortness of breath, chest pain, chest wall pain, orthopnea, dyspnea on exertion, syncope Gastrointestinal:Denies nausea, vomiting, diarrhea, constipation, hematemesis, melena, hematochezia. No no significant change of bowel habit noticed. Musculoskeletal: Myalgia without new arthralgia Skin: Denies new rash or lesions. No new ulcers or wounds are related.. Neuro: He had a mild headache but no visual change. Denies any new onset weakness or difficulty with ambulation. Denies falls or seizures. Psychiatric:Denies anxiety or depression. Endocrine: With the current illness had significant fatigue, denies significant weight loss or weight gain. Past Medical History Past Medical History: Diabetes Mellitus, Fibromyalgia, Hyperlipidemia, Hypertension, Myocardial Infarction (HI), Renal Disease Additional Past Medical History / Comment(s): transient global amnesia Last Myocardial Infarction Date:: 2010 History of Any Multi-Drug Resistant Organisms: None Reported Past Surgical History: Adenoidectomy, Cholecystectomy, Heart Catheterization With Stent Past Anesthesia/Blood Transfusion Reactions: No Reported Reaction Date of Last Stent Placement:: 2010 Past Psychological History: Anxiety Additional Psychological History / Comment(s): . Retired. Recently traveled out east but was not ill at that time. No animal exposures. No tobacco use or alcohol use. Was in the in the [employer] no illnesses during that time Smoking Status: Never smoker Past Alcohol Use History: None Reported Past Drug Use History: None Reported - Past Family History Father Family Medical History: Blood Disorder (thrombocytopenia, had splenectomy) Mother Family Medical History: Cancer Medications and Allergies Home Medications and Allergies Comment(s): Current Medications Acetaminophen (Tylenol Tab) 650 mg PO Q6HR PRN PRN Reason: Fever and/ or Pain Last Admin: 12/30/16 14:34 Dose: 650 mg Atorvastatin Calcium (Lipitor) 20 mg PO HS [facility] Last Admin: 12/29/16 23:07 Dose: Not Given Carvedilol (Coreg) 25 mg PO BID [facility] Last Admin: 12/30/16 08:18 Dose: 25 mg Duloxetine HCl (Cymbalta) 60 mg PO DAILY [facility] Last Admin: 12/30/16 08:18 Dose: 60 mg Ergocalciferol (Vitamin D2) 50,000 unit PO Q14D [facility] Furosemide (Lasix) 40 mg PO MOFR [facility] Furosemide (Lasix) 20 mg PO SUTUWETHSA [facility] Last Admin: 12/29/16 23:08 Dose: Not Given Sodium Chloride (Saline 0.9%) 1,000 mls @ 120 mls/hr IV .Q8H20M [facility] Last Admin: 12/30/16 08:25 Dose: 120 mls/hr Ceftriaxone Sodium 2,000 mg/ (Sodium Chloride) 100 mls @ 100 mls/hr IVPB Q24H [facility] Last Admin: 12/29/16 23:06 Dose: 100 mls/hr Lisinopril (Zestril) 40 mg PO DAILY [facility] Last Admin: 12/30/16 08:19 Dose: 40 mg Lorazepam (Ativan) 1 mg PO TID PRN PRN Reason: Anxiety Last Admin: 12/30/16 08:15 Dose: 1 mg Multivitamins (Theragran) 1 each PO DAILY [facility] Last Admin: 12/30/16 08:19 Dose: 1 each Naloxone HCl (Narcan) 0.2 mg IV Q2M PRN PRN Reason: Opioid Reversal Nitroglycerin (Nitrostat) 0.4 mg SUBLINGUAL Q5M PRN PRN Reason: Chest Pain Patient's Own Med ( Liraglutide [Victoza 2-Seferino] 0.6 Mg) 0.6 mg SQ DAILY [facility] Last Admin: 12/30/16 16:14 Dose: Not Given Nortriptyline HCl (Pamelor) 50 mg PO HS [facility] Last Admin: 12/29/16 23:06 Dose: 50 mg Terazosin HCl (Hytrin) 2 mg PO BID [facility] Last Admin: 12/30/16 08:19 Dose: 2 mg Home Medications Medication Instructions Recorded Confirmed Type Allopurinol [Zyloprim] 100 mg PO BID 09/25/16 12/29/16 History Aspirin [Adult Low Dose Aspirin EC] 81 mg PO BID 09/25/16 12/29/16 History Carvedilol [Coreg] 25 mg PO BID 09/25/16 12/29/16 History DULoxetine HCL [Cymbalta] 60 mg PO DAILY 09/25/16 12/29/16 History Ergocalciferol [Vitamin D2 50,000 unit PO Q14D 09/25/16 12/29/16 History (DRISDOL)] Furosemide [Lasix] 20 mg PO SUTUWETHSA 09/25/16 12/29/16 History LORazepam [Ativan] 1 mg PO TID PRN 09/25/16 12/29/16 History Liraglutide [Victoza 2-Seferino] 0.6 mg SQ DAILY 09/25/16 12/29/16 History Lisinopril [Zestril] 40 mg PO DAILY 09/25/16 12/29/16 History Multivitamins, Thera [Multivitamin 1 tab PO DAILY 09/25/16 12/29/16 History (formulary)] Nitroglycerin Sl Tabs [Nitrostat] 0.4 mg SUBLINGUAL Q5M PRN 09/25/16 12/29/16 History Nortriptyline HCl [Pamelor] 50 mg PO HS 09/25/16 12/29/16 History [place]-3/Dha/Epa/Fish Oil [Fish Oil 1 cap PO DAILY 09/25/16 12/29/16 History 1,360 mg Softgel] Rosuvastatin [Crestor] 10 mg PO HS 09/25/16 12/29/16 History Terazosin HCl 2 mg PO BID 09/25/16 12/29/16 History Ubidecarenone [Co Q-10] 100 mg PO DAILY 09/25/16 12/29/16 History Furosemide [Lasix] 40 mg PO MOFR 11/11/16 12/29/16 History Allergies Allergy/AdvReac Type Severity Reaction Status Date / Time adhesive tape Allergy Rash/Hives Verified 12/29/16 20:20 Penicillins Allergy Itching Verified 12/29/16 20:20 prednisone AdvReac DEPRESSION Verified 12/29/16 20:20 WITH LARGE DOSES Physical Exam Vitals: Vital Signs Temp Pulse Pulse Pulse Resp BP BP 12/30/16 15:29 99.2 F 12/30/16 15:00 101.0 F H 106 H 17 134/80 12/30/16 11:05 99 12/30/16 08:07 98.3 F 111 H 16 120/69 12/30/16 02:40 99.4 F 108 H 18 127/68 12/30/16 00:55 97.5 F L 106 H 16 119/73 12/29/16 22:50 99.7 F H 18 104/63 12/29/16 22:31 100.5 F H 116 H 18 120/69 12/29/16 21:00 123 H 20 149/83 12/29/16 20:03 116 H 18 160/87 12/29/16 19:23 102.0 F H 114 H 18 172/95 Pulse Ox 12/30/16 15:29 12/30/16 15:00 95 12/30/16 11:05 12/30/16 08:07 92 L 12/30/16 02:40 94 L 12/30/16 00:55 95 12/29/16 22:50 94 L 12/29/16 22:31 96 12/29/16 21:00 97 12/29/16 20:03 95 12/29/16 19:23 97 Intake and Output 12/30/16 12/30/16 12/30/16 06:59 14:59 22:59 Other: Voiding Method Toilet # Voids 1 1 Very pleasant 71-year-old male who has had fever chills and rigor and generalized body ache. He does have underlying fibromyalgia and this has worsened this. HEENT: Anicteric conjunctiva are pink and moist nasal mucosa grossly intact without significant lesions, there is no thrush. Neck: The neck is supple without significant lymphadenopathy or thyromegaly. Lungs: Symmetrical air entry with only few basilar crackles no bronchial sounds or egophony or dullness is noted Heart: Regular rate and rhythm with an audible S1-S2, no S3 soft S4. There is no significant murmur click or rub, PMI was nondisplaced. Abdomen: Positive bowel sounds soft and nontender without palpable masses or organomegaly. There was no guarding or rebound. Extremities: The upper extremities have excellent pulses they are symmetric, no significant petechiae or telangiectasia. No splinter hemorrhages were noted. The lower extremities are free from significant edema. The peripheral pulses were 2+ and symmetric. Neuro: Awake alert oriented to person place and time. There are no acute new gross focal sensory motor deficits Results CBC & Chem 7: 12/30/16 07:22 12/30/16 07:22 Labs: Abnormal Lab Results - Last 24 Hours (Table) 12/29/16 12/29/16 12/29/16 Range/Units 19:40 19:40 20:01 Plt Count 100 L (150-450) k/uL Lymphocytes # 0.4 L (1.0-4.8) k/uL Chloride (98-107) mmol/L Carbon Dioxide (22-30) mmol/L BUN 25 H (9-20) mg/dL Creatinine 1.40 H (0.66-1.25) mg/dL Glucose 139 H (74-99) mg/dL POC Glucose (mg/dL) (75-99) mg/dL Calcium (8.4-10.2) mg/dL Urine Protein 3+ H (Negative) Urine Bacteria Rare H (None) /hpf Urine Mucus Rare H (None) /hpf 12/30/16 12/30/16 12/30/16 Range/Units 07:04 07:22 07:22 Plt Count 103 L (150-450) k/uL Lymphocytes # 0.5 L (1.0-4.8) k/uL Chloride 110 H (98-107) mmol/L Carbon Dioxide 21 L (22-30) mmol/L BUN 22 H (9-20) mg/dL Creatinine 1.36 H (0.66-1.25) mg/dL Glucose 122 H (74-99) mg/dL POC Glucose (mg/dL) 119 H (75-99) mg/dL Calcium 7.9 L (8.4-10.2) mg/dL Urine Protein (Negative) Urine Bacteria (None) /hpf Urine Mucus (None) /hpf 12/30/16 12/30/16 Range/Units 11:40 16:31 Plt Count (150-450) k/uL Lymphocytes # (1.0-4.8) k/uL Chloride (98-107) mmol/L Carbon Dioxide (22-30) mmol/L BUN (9-20) mg/dL Creatinine (0.66-1.25) mg/dL Glucose (74-99) mg/dL POC Glucose (mg/dL) 127 H 113 H (75-99) mg/dL Calcium (8.4-10.2) mg/dL Urine Protein (Negative) Urine Bacteria (None) /hpf Urine Mucus (None) /hpf Microbiology - Last 24 Hours (Table) 12/29/16 19:40 Blood Culture Gram Stain - Preliminary Blood 12/29/16 19:40 Blood Culture - Final Blood 12/29/16 20:01 Urine Culture - Preliminary Urine,Voided Laboratory Results WBC 8.5 k/uL (3.8-10.6) 12/30/16 07:22 RBC 4.31 m/uL (4.30-5.90) 12/30/16 07:22 Hgb 13.5 gm/dL (13.0-17.5) 12/30/16 07:22 Hct 40.2 % (39.0-53.0) 12/30/16 07:22 MCV 93.2 fL (80.0-100.0) 12/30/16 07:22 MCH 31.3 pg (25.0-35.0) 12/30/16 07:22 MCHC 33.5 g/dL (31.0-37.0) 12/30/16 07:22 RDW 14.2 % (11.5-15.5) 12/30/16 07:22 Plt Count 103 k/uL (150-450) L 12/30/16 07:22 Neutrophils % 85 % 12/30/16 07:22 Lymphocytes % 6 % 12/30/16 07:22 Monocytes % 6 % 12/30/16 07:22 Eosinophils % 1 % 12/30/16 07:22 Basophils % 0 % 12/30/16 07:22 Neutrophils # 7.3 k/uL (1.3-7.7) 12/30/16 07:22 Lymphocytes # 0.5 k/uL (1.0-4.8) L 12/30/16 07:22 Monocytes # 0.5 k/uL (0-1.0) 12/30/16 07:22 Eosinophils # 0.1 k/uL (0-0.7) 12/30/16 07:22 Basophils # 0.0 k/uL (0-0.2) 12/30/16 07:22 ESR 12 mm/hr (0-15) 12/29/16 19:40 PT 10.6 sec (9.0-12.0) 12/29/16 19:40 INR 1.0 (<1.2) 12/29/16 19:40 APTT 23.0 sec (22.0-30.0) 12/29/16 19:40 Sodium 139 mmol/L (137-145) 12/30/16 07:22 Potassium 4.2 mmol/L (3.5-5.1) 12/30/16 07:22 Chloride 110 mmol/L (98-107) H 12/30/16 07:22 Carbon Dioxide 21 mmol/L (22-30) L 12/30/16 07:22 Anion Gap 8 mmol/L 12/30/16 07:22 BUN 22 mg/dL (9-20) H 12/30/16 07:22 Creatinine 1.36 mg/dL (0.66-1.25) H 12/30/16 07:22 Est GFR (MDRD) Af Amer >60 (>60 ml/min/1.73 sqM) 12/30/16 07:22 Est GFR (MDRD) Non-Af 52 (>60 ml/min/1.73 sqM) 12/30/16 07:22 Glucose 122 mg/dL (74-99) H 12/30/16 07:22 POC Glucose (mg/dL) 113 mg/dL (75-99) H 12/30/16 16:31 POC Glu Mathematics Lecturer ID Janice Dow 12/30/16 16:31 Plasma Lactic Acid Axel 2.0 mmol/L (0.7-2.0) 12/29/16 19:40 Calcium 7.9 mg/dL (8.4-10.2) L 12/30/16 07:22 Total Bilirubin 0.7 mg/dL (0.2-1.3) 12/29/16 19:40 AST 35 U/L (17-59) 12/29/16 19:40 ALT 67 U/L (21-72) 12/29/16 19:40 Alkaline Phosphatase 87 U/L (38-126) 12/29/16 19:40 Troponin I <0.012 ng/mL (0.000-0.034) 12/29/16 19:40 C-Reactive Protein <5.0 mg/L (<10.0) 12/29/16 19:40 Total Protein 7.1 g/dL (6.3-8.2) 12/29/16 19:40 Albumin 4.1 g/dL (3.5-5.0) 12/29/16 19:40 TSH 2.740 mIU/L (0.465-4.680) 12/29/16 19:40 Urine Color Light Yellow 12/29/16 20:01 Urine Appearance Clear (Clear) 12/29/16 20:01 Urine pH 6.0 (5.0-8.0) 12/29/16 20:01 Ur Specific Omega 1.007 (1.001-1.035) 12/29/16 20:01 Urine Protein 3+ (Negative) H 12/29/16 20:01 Urine Glucose (UA) Negative (Negative) 12/29/16 20:01 Urine Ketones Negative (Negative) 12/29/16 20:01 Urine Blood Negative (Negative) 12/29/16 20:01 Urine Nitrite Negative (Negative) 12/29/16 20:01 Urine Bilirubin Negative (Negative) 12/29/16 20:01 Urine Urobilinogen <2.0 mg/dL (<2.0) 12/29/16 20:01 Ur Leukocyte Esterase Negative (Negative) 12/29/16 20:01 Urine RBC <1 /hpf (0-5) 12/29/16 20:01 Urine WBC 1 /hpf (0-5) 12/29/16 20:01 Urine Bacteria Rare /hpf (None) H 12/29/16 20:01 Hyaline Casts 1 /lpf (0-2) 12/29/16 20:01 Urine Mucus Rare /hpf (None) H 12/29/16 20:01 Rheumatoid Factor <9 IU/mL (<12) 12/29/16 19:40 Influenza Type A RNA Not Detected (Not Detectd) 12/29/16 21:01 Influenza Type B (PCR) Not Detected (Not Detectd) 12/29/16 21:01 Microbiology 12/29/16 19:40 Blood Blood Culture Gram Stain - Preliminary 12/29/16 19:40 Blood Blood Culture - Final 12/29/16 20:01 Urine,Voided Urine Culture - Preliminary Assessment and Plan (1) Gram negative sepsis Narrative/Plan: Pleasant 71-year-old male presents to hospital with complaints of high -grade fever chill rigors myalgias and some headache. He is feeling very much like he did approximate one month ago. At which point in time he had Citrobacter freundii bacteremia. He does have a history of the cholecystectomy performed early in the summer at which point in time he also had sepsis. He then had a bout of gram-negative sepsis in November in no about 5 weeks later again has a bout of sepsis. During his last stay he was evaluated and computed tomography scan was performed without evidence of any significant focus. However with his history of the gangrenous cholecystitis, there is ongoing concerns to potential biliary tract versus ductal disease. An ultrasound of the area will be performed to ensure that there is no postoperative complication that has developed since the last hospital stay. Other concern would be to the ductal system and MR ERCP as requested, however the elevated AST ALT and bilirubin from the past of all resolved. Alk phosphatase is also now normal. Follow blood cultures will be obtained to ensure that is clearing his gram- negative bacteremia. He has developed significant thrombocytopenia likely the basis of his gram- negative sepsis and will be monitored. He has been evaluated by hematology in the past. Status: Acute (2) Thrombocytopenia Status: Acute (3) Focal segmental glomerulosclerosis Status: Acute
--- NOTE | 2016-12-30 17:08 | P.PN ---
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 He underwent an extensive evaluation in the ER was not found to have any infection. He was admitted to the general medical floor for further monitoring and care. He had blood cultures come back positive for gram- negative bacilli. He had recently had a Citrobacter bloodstream infection in November. Patient seen and examined at bedside. He complains of a headache. He also complains of feeling sore all over and having joint pain. He denies any nausea , vomiting, diarrhea, shortness of breath, and chest pain. Long discussion was had with the family about possible causes of recurrent infection including abscess in the gallbladder fossa versus additional source of bacteremia. All questions answered. Objective - Vital Signs Vital signs: Vital Signs Temp 99.2 F 12/30/16 15:29 Pulse 106 H 12/30/16 15:00 Resp 17 12/30/16 15:00 BP 134/80 12/30/16 15:00 Pulse Ox 95 12/30/16 15:00 Intake & Output 12/29/16 12/30/16 12/30/16 18:59 06:59 18:59 Weight 87.09 kg Other: Voiding Method Toilet # Voids 1 1 - Exam General: Ill appearing, toxic, no distress, appears at stated age Derm: no rashes, no lesions Head: atraumatic, normocephalic, symmetric Eyes: EOMI, no lid lag, anicteric sclera ENT: no post nasal drip, no thrush Mouth: no lip lesion, mucus membranes moist Cardiovascular: S1S2 reg, no murmur, positive posterior tibial pulse bilateral, Lungs: CTA bilateral, no rhonchi, no rales , no accessory muscle use Abdominal: soft, nontender to palpation, no guarding, no appreciable organomegaly Ext: no gross muscle atrophy, no edema, no contractures Neuro: CN II-XI grossly intact, no focal neuro deficits Psych: Alert, oriented, appropriate affect - Labs CBC & Chem 7: 12/30/16 07:22 12/30/16 07:22 Labs: Abnormal Lab Results - Last 24 Hours (Table) 12/29/16 12/29/16 12/29/16 Range/Units 19:40 19:40 20:01 Plt Count 100 L (150-450) k/uL Lymphocytes # 0.4 L (1.0-4.8) k/uL Chloride (98-107) mmol/L Carbon Dioxide (22-30) mmol/L BUN 25 H (9-20) mg/dL Creatinine 1.40 H (0.66-1.25) mg/dL Glucose 139 H (74-99) mg/dL POC Glucose (mg/dL) (75-99) mg/dL Calcium (8.4-10.2) mg/dL Urine Protein 3+ H (Negative) Urine Bacteria Rare H (None) /hpf Urine Mucus Rare H (None) /hpf 12/30/16 12/30/16 12/30/16 Range/Units 07:04 07:22 07:22 Plt Count 103 L (150-450) k/uL Lymphocytes # 0.5 L (1.0-4.8) k/uL Chloride 110 H (98-107) mmol/L Carbon Dioxide 21 L (22-30) mmol/L BUN 22 H (9-20) mg/dL Creatinine 1.36 H (0.66-1.25) mg/dL Glucose 122 H (74-99) mg/dL POC Glucose (mg/dL) 119 H (75-99) mg/dL Calcium 7.9 L (8.4-10.2) mg/dL Urine Protein (Negative) Urine Bacteria (None) /hpf Urine Mucus (None) /hpf 12/30/16 12/30/16 Range/Units 11:40 16:31 Plt Count (150-450) k/uL Lymphocytes # (1.0-4.8) k/uL Chloride (98-107) mmol/L Carbon Dioxide (22-30) mmol/L BUN (9-20) mg/dL Creatinine (0.66-1.25) mg/dL Glucose (74-99) mg/dL POC Glucose (mg/dL) 127 H 113 H (75-99) mg/dL Calcium (8.4-10.2) mg/dL Urine Protein (Negative) Urine Bacteria (None) /hpf Urine Mucus (None) /hpf Microbiology - Last 24 Hours (Table) 12/29/16 19:40 Blood Culture Gram Stain - Preliminary Blood 12/29/16 19:40 Blood Culture - Final Blood 12/29/16 20:01 Urine Culture - Preliminary Urine,Voided Assessment and Plan Plan: #Re-current Citrobacter bacteremia -ID recommendations appreciated -Continue Rocephin -Check abdominal ultrasound if negative then proceed with CT abdomen and pelvis and possible MRCP -Check head CT with recurrent headaches #Diabetes mellitus type 2, diet controlled -Follow blood sugars -Hemoglobin A1c #CKD stage III secondary to FSGS - Creatinine appears at or near baseline -Follow creatinine -Is changes in creatinine then consult nephrology Chronic: Fibromyalgia Hyperlipidemia Hypertension Myocardial infarction Resume all home medications DVT prophylaxis: Heparin Discussed with: Patient, Family, Dr. Thao Anticipated discharge: 3-[address]: home A total of 35 minutes was spent on the care of this complex patient more than 50 % of the time was spent in counseling and care coordination.
--- NOTE | 2016-12-30 18:31 | CT ---
EXAMINATION TYPE: CT brain wo con DATE OF EXAM: 12/30/2016 COMPARISON: NONE HISTORY: Patient complains of sepsis with mild headache. CT DLP: 1157.20 mGycm Automated exposure control for dose reduction was used. FINDINGS: There is cerebral cortical atrophy. There is no mass effect nor midline shift. There is no sign of in tracranial hemorrhage. The calvarium is intact. IMPRESSION: CEREBRAL ATROPHY. NO ACUTE INTRACRANIAL ABNORMALITY.
--- NOTE | 2016-12-30 19:06 | US ---
EXAMINATION TYPE: US abdomen limited DATE OF EXAM: 12/30/2016 COMPARISON: CT 11/2016 and US 09/2016 CLINICAL HISTORY: hx of cholecystectomy eval for abscess at site. Sepsis x 3 post lap/cholecystectomy end of September 2016, fever of unknown origin EXAM MEASUREMENTS: Liver Length: 15.7 cm Gallbladder Wall: not identified post cholecystectomy CBD: 0.6 cm Right Kidney: 12.6 x 5.2 x 5.5 cm Pancreas: Tail obscured by overlying bowel gas Liver: wnl Gallbladder: no distended gallbladder lumen is seen on NPO patient; however, hyperechoic oval shaped focus is noted in space occupying area of gallbladder measuring approximately 2.8 x 2.9 x 5.8cm. Evidence for sonographic White's sign: No CBD: wnl Right Kidney: wnl No fluid collections are seen at 4 small incision sites of anterior abdomen for laparoscopic cholecys tectomy. IMPRESSION: The patient by history has had a cholecystectomy. There is echogenicity at the gallbladde r bed that could relate to contracted bowel. A mass or debris at this area cannot be entirely exclude d. There is no evidence of fluid to suggest an abscess. No dilated ducts. No focal liver defect. Right kidney shows no hydronephrosis.
[2016-12-30] MEDS: LORazepam 1 MG TAB PO SCH ×2 (19:14→23:12)
[2016-12-30] MEDS: NORTRIPTYLINE 25 MG CAP PO SCH (20:21)
[2016-12-30] MEDS: ATORVASTATIN 20 MG TAB PO SCH (20:23)
[2016-12-30 21:09] LABS: Glucose,Whole Blood 157 mg/dL (75-99)
[2016-12-30] MEDS ORDERED: FUROSEMIDE 20 MG TAB PO SCH (22:16)
[2016-12-30] MEDS: cefTRIAXone 2,000 MG in SODIUM CHLORIDE 0.9% 100 ML IVPB SCH (23:09)
[2016-12-31] MEDS: LORazepam 1 MG TAB PO SCH ×5 (00:34→22:36)
[2016-12-31 07:27] LABS: Glucose,Whole Blood 109 mg/dL (75-99)
[2016-12-31 07:38] LABS: CH 32.1; CHCM 34.4; HCT 42.2 % (39.0-53.0); HDW 2.82; HGB 14.1 gm/dL (13.0-17.5); MCH 31.3 pg (25.0-35.0); MCHC 33.4 g/dL (31.0-37.0); MCV 93.7 fL (80.0-100.0); Mean Platelet Volume 8.1; RDW 14.9 % (11.5-15.5); WBC 7.6 k/uL (3.8-10.6)
[2016-12-31] MEDS: LIRAGLUTIDE 0.6 MG SQ SCH (07:41)
[2016-12-31 08:04] LABS: ALT 49 U/L (21-72); AST 31 U/L (17-59); Alkaline Phosphatase 78 U/L (38-126); Anion Gap 10 mmol/L; Blood Urea Nitrogen 16 mg/dL (9-20); Calcium 8.4 mg/dL (8.4-10.2); Carbon Dioxide 23 mmol/L (22-30); Chloride 109 mmol/L (98-107); Glucose 108 mg/dL (74-99); Non-African American GFR(MDRD) 55 (>60 ml/min/1.73 sqM); Potassium 4.1 mmol/L (3.5-5.1); Sodium 142 mmol/L (137-145); Total Bilirubin 0.6 mg/dL (0.2-1.3); Total Protein 6.3 g/dL (6.3-8.2)
--- NOTE | 2016-12-31 09:08 | MR ---
EXAMINATION TYPE: MR liver wo/w con and mrcp DATE OF EXAM: 12/31/2016 COMPARISON: Previous CT scan of the abdomen and pelvis dated 11/13/2016 and a previous ultrasound of t he abdomen dated 12/30/2016. HISTORY: Sepsis recurrent after cholecystectomy CONTRAST: Standard multiplanar, multisequence MRI departmental protocol with and without intravenous administra tion of 8.5 mL intravenous Gadavist gadolinium contrast. FINDINGS: There is a 1.3 x 0.9 x 1.4 cm oval lesion in the expected location of the gallbladder fossa . This is not connected to the biliary tree. This is intermediate signal on both T1 and T2. This does not show evidence of enhancement. The liver, pancreas and biliary tree are normal. The pancreatic duct is normal. There is no abnormal fluid collection to suggest abscess. The adrenal glands appear normal. There is a tiny, subcentimeter cystic lesion in the mid polar region of the left kidney. The kidneys are otherwise unremarkable. IMPRESSION: 1.3 x 0.9 x 1.4 cm oval lesion in the expected location of the gallbladder fossa. This is of uncertai n etiology. This might BE further characterized with a CT scan of the abdomen.
[2016-12-31] MEDS: SODIUM CHLORIDE 0.9% 1,000 ML IV SCH ×3 (09:32→20:37)
[2016-12-31] MEDS: LISINOPRIL 20 MG TAB PO SCH (09:34)
[2016-12-31] MEDS: CARVEDILOL 12.5 MG TAB PO SCH ×2 (09:34→20:29)
[2016-12-31] MEDS: FUROSEMIDE 20 MG TAB PO SCH ×2 (09:34→22:32)
[2016-12-31] MEDS: TERAZOSIN 2 MG CAP PO SCH ×2 (09:35→20:29)
[2016-12-31] MEDS: MULTIVITAMINS, THERA 1 EACH TAB PO SCH (09:35)
[2016-12-31] MEDS: DULoxetine HCL 60 MG CAPSULE.DR PO SCH (09:35)
[2016-12-31 12:01] LABS: Glucose,Whole Blood 213 mg/dL (75-99)
[2016-12-31 13:52] LABS: Hemoglobin A1C 6.1 % (4.2-6.1)
[2016-12-31] MEDS ORDERED: RX INFO: IV CONTRAST WAS GIVEN 1 EACH MISC MISCELLANE PRN (14:14)
[2016-12-31] MEDS: IOHEXOL 350 MG/ML 25 ML BOTTLE (ORAL USE) PO PRN ×2 (14:29→15:35)
--- NOTE | 2016-12-31 15:59 | P.PN ---
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 He underwent an extensive evaluation in the ER was not found to have any infection. He was admitted to the general medical floor for further monitoring and care. He had blood cultures come back positive for gram- negative bacilli. He had recently had a Citrobacter bloodstream infection in November. Underwent a CT of the brain which showed no acute process. He underwent an abdominal ultrasound which showed possible structure in the gallbladder fossa but no abscess. He then underwent an MRCP showed a 1.3 x 0.9 x 1.4 cm oval lesion in the expected location of the gallbladder fossa of undetermined etiology. This did not appear to be an abscess. Patient seen and examined at bedside. Headache is improved. Still having joint pain. Having diarrhea secondary to his clindamycin. Not having any recurrent fevers. No chest pain or shortness of breath. at bedside. Updated on the plan for CT chest, abdomen, pelvis, and echocardiogram. Objective - Vital Signs Vital signs: Vital Signs Temp 97.9 F 12/31/16 13:37 Pulse 87 12/31/16 13:37 Resp 16 12/31/16 13:37 BP 151/78 12/31/16 13:37 Pulse Ox 95 12/31/16 13:37 Intake & Output 12/30/16 12/31/16 12/31/16 18:59 06:59 18:59 Intake Total 1480 Balance 1480 Intake: Intake, IV Titration 1480 Amount Sodium Chloride 0.9% 1, 1380 000 ml @ 120 mls/hr IV . Q8H20M [facility] Rx#:[id number] cefTRIAXone 2,000 mg In 100 Sodium Chloride 0.9% 100 ml @ 100 mls/hr IVPB Q24H [facility] Rx#:[id number] Other: Voiding Method Toilet Toilet # Voids 1 1 1 - Exam General: Ill appearing, toxic, no distress, appears at stated age Derm: no rashes, no lesions Head: atraumatic, normocephalic, symmetric Eyes: EOMI, no lid lag, anicteric sclera ENT: no post nasal drip, no thrush Mouth: no lip lesion, mucus membranes moist Cardiovascular: S1S2 reg, no murmur, positive posterior tibial pulse bilateral, Lungs: Decreased breath sounds bilateral bases, no rhonchi, no rales , no accessory muscle use Abdominal: soft, nontender to palpation, no guarding, no appreciable organomegaly Ext: no gross muscle atrophy, no edema, no contractures Neuro: CN II-XI grossly intact, no focal neuro deficits Psych: Alert, oriented, appropriate affect - Labs CBC & Chem 7: 12/31/16 06:29 12/31/16 06:29 Labs: Abnormal Lab Results - Last 24 Hours (Table) 12/30/16 12/30/16 12/31/16 Range/Units 16:31 20:46 06:29 Plt Count (150-450) k/uL Chloride 109 H (98-107) mmol/L Creatinine 1.28 H (0.66-1.25) mg/dL Glucose 108 H (74-99) mg/dL POC Glucose (mg/dL) 113 H 157 H (75-99) mg/dL Albumin 3.3 L (3.5-5.0) g/dL 12/31/16 12/31/16 12/31/16 Range/Units 06:29 07:16 11:57 Plt Count 105 L (150-450) k/uL Chloride (98-107) mmol/L Creatinine (0.66-1.25) mg/dL Glucose (74-99) mg/dL POC Glucose (mg/dL) 109 H 213 H (75-99) mg/dL Albumin (3.5-5.0) g/dL Microbiology - Last 24 Hours (Table) 12/29/16 19:40 Blood Culture Gram Stain - Preliminary Blood Blood Culture - Preliminary Gram Neg Bacilli 12/29/16 20:01 Urine Culture - Final Urine,Voided Assessment and Plan Plan: #Re-current Citrobacter bacteremia -ID recommendations appreciated -Continue Rocephin -Head CT negative -MRCP with structure in the gallbladder fossa that does not appear to be abscess -Check CT chest to rule out abscess, check CT abdomen and pelvis for further characterization of this mass -Doubt endocarditis with his gram-negative infection however with it being recurrent I feel that we do need to complete an echocardiogram in order to eliminate this possibility. 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
--- NOTE | 2016-12-31 16:03 | ECHOF ---
Referral Reason:endocarditis MEASUREMENTS -------- HEIGHT: 172.7 cm WEIGHT: 87.1 kg BP: 151/78 RVIDd: 2.6 cm (< 3.3) IVSd: 1.3 cm (0.6 - 1.1) LVIDd: 4.3 cm (3.9 - 5.3) LVPWd: 1.3 cm (0.6 - 1.1) IVSs: 1.8 cm LVIDs: 2.5 cm LVPWs: 1.7 cm LA Diam: 3.6 cm (2.7 - 3.8) LAESV Index (A-L): 32.24 ml/m Ao Diam: 3.4 cm (2.0 - 3.7) AV Cusp: 1.8 cm (1.5 - 2.6) MV EXCURSION: 19.197 mm (> 18.000) MV EF SLOPE: 167 mm/s (70 - 150) EPSS: 0.1 cm MV E Oniel: 1.05 m/s MV DecT: 96 ms MV A Oniel: 1.21 m/s MV E/A Ratio: 0.87 AV maxP.49 mmHg AV meanP.85 mmHg FINDINGS -------- Sinus rhythm. This was a technically adequate study. The left ventricular size is normal. There is mild concentric left ventricular hypertrophy. Overall left ventricular systolic function is mild-moderately impaired with, an EF between 40 - 45 %. Mid anterior LV wall motion is hypokinetic. Apical anterior LV wall motion is hypokinetic. Apical inferior LV wall motion is hypokinetic. Apical septum LV wall motion is hypokinetic. The right ventricle is normal in size. LA is midly dilated 29-33ml/m2. The right atrium is normal in size. 1.5mg of Definity was utilized for enhancement of images Aortic valve is trileaflet and is moderately thickened. There is mild aortic stenosis present. Peak/mean gradient across the Aortic Valve is 14.49mmHg / 7.85mmHg. Mild mitral annular calcification present. Mild mitral regurgitation is present. The tricuspid valve appears structurally normal. Mild tricuspid regurgitation present. Trace/mild (physiologic) pulmonic regurgitation. The aortic root size is normal. Normal inferior vena cava with normal inspiratory collapse consistent with estimated right atrial pressure of 5 mmHg. There is no pericardial effusion. CONCLUSIONS -------- 1. Sinus rhythm. 2. LA is midly dilated 29-33ml/m2. 3. 1.5mg of Definity was utilized for enhancement of images 4. Aortic valve is trileaflet and is moderately thickened. 5. There is mild aortic stenosis present. 6. Mild mitral annular calcification present. 7. Mild mitral regurgitation is present. 8. The tricuspid valve appears structurally normal. 9. Mild tricuspid regurgitation present. 10. Trace/mild (physiologic) pulmonic regurgitation. 11. The aortic root size is normal. 12. This was a technically adequate study. 13. Normal inferior vena cava with normal inspiratory collapse consistent with estimated right atrial pressure of 5 mmHg. 14. There is no pericardial effusion. 15. The left ventricular size is normal. 16. There is mild concentric left ventricular hypertrophy. 17. Overall left ventricular systolic function is mild-moderately impaired with, an EF between 40 - 45 %. 18. Mid anterior LV wall motion is hypokinetic. 19. Apical anterior LV wall motion is hypokinetic. 20. Apical inferior LV wall motion is hypokinetic. 21. Apical septum LV wall motion is hypokinetic. FUEL MANAGEMENT HANDLER: Erin Meeks RDCS
[2016-12-31 16:49] LABS: Glucose,Whole Blood 102 mg/dL (75-99)
--- NOTE | 2016-12-31 17:12 | CT ---
EXAMINATION TYPE: CT ChestAbdPelvis w con DATE OF EXAM: 12/31/2016 INDICATION: Patient poor historian. Abnormal MRI, rule out abscess. COMPARISON: NONE CT DLP: 1307.3 mGycm CONTRAST: Performed with Oral Contrast and with IV Contrast, patient injected with 80 mL of Visipaque 320. TECHNIQUE: Axial images at 5 mm thick sections. Reconstructed images in the coronal plane. Delayed images through the kidneys. FINDINGS: CT CHEST: Portion of the thyroid visualized is normal. No suspicious lung nodules or focal infiltrates are present. No enlarged mediastinal or hilar adenopathy is evident. The ascending aorta diameter at the level of the main pulmonary artery is 3.0 cm. The main pulmonary artery diameter at the bifurcation is 2.4 cm. Coronary artery calcifications present. Very minimal b ilateral pleural effusions are present CT ABDOMEN: Liver: Normal Spleen: Normal Pancreas: Normal Adrenal glands: The adrenal glands are normal. Gallbladder: Normal Kidneys: No masses are evident. No hydronephrosis is present. No cysts are present. Delayed images were obtained through the kidneys, which remain unremarkable. Aorta: Vascular calcification is within the aorta. Inferior vena cava: Normal. CT PELVIS: Sigmoid colon appears thickened with multiple diverticuli present. Inflammatory changes suggest a mor e aggressive diverticulitis is not evident. Some very subtle inflammatory change adjacent to the prox imal sigmoid colon may be present suggest a mild diverticulitis. Correlate with the clinical symptoms . There are loops of bowel which are incompletely distended or lack oral contrast limiting their eval uation. Appendix: The appendix is not identified. No suspicious inflammatory changes or tubular structures ar e evident. Urinary bladder: Normal. Genitourinary structures: Prostate is prominent. Osseous structures: No suspicious lytic or sclerotic lesions. Degenerative disc changes are within th e lumbar spine. IMPRESSIONS: 1. Findings suggestive for mild acute diverticulitis proximal sigmoid colon. 2. Minimal bilateral pleural effusions
[2016-12-31 20:26] LABS: Glucose,Whole Blood 160 mg/dL (75-99)
[2016-12-31] MEDS: NORTRIPTYLINE 25 MG CAP PO SCH (20:29)
[2016-12-31] MEDS: ATORVASTATIN 20 MG TAB PO SCH (20:29)
[2016-12-31] MEDS: cefTRIAXone 2,000 MG in SODIUM CHLORIDE 0.9% 100 ML IVPB SCH (22:35)
[2017-01-01 07:27] LABS: Glucose,Whole Blood 106 mg/dL (75-99)
[2017-01-01 08:04] LABS: Anion Gap 10 mmol/L; Blood Urea Nitrogen 13 mg/dL (9-20); Calcium 8.3 mg/dL (8.4-10.2); Carbon Dioxide 19 mmol/L (22-30); Chloride 112 mmol/L (98-107); Glucose 106 mg/dL (74-99); Non-African American GFR(MDRD) >60 (>60 ml/min/1.73 sqM); Potassium 3.6 mmol/L (3.5-5.1); Sodium 141 mmol/L (137-145)
[2017-01-01] MEDS: LIRAGLUTIDE 0.6 MG SQ SCH (08:19)
[2017-01-01] MEDS: SODIUM CHLORIDE 0.9% 1,000 ML IV SCH (08:19)
[2017-01-01] MEDS: MULTIVITAMINS, THERA 1 EACH TAB PO SCH (08:20)
[2017-01-01] MEDS: TERAZOSIN 2 MG CAP PO SCH ×2 (08:20→21:40)
[2017-01-01] MEDS: FUROSEMIDE 20 MG TAB PO SCH (08:20)
[2017-01-01] MEDS: LORazepam 1 MG TAB PO SCH ×5 (08:21→21:39)
[2017-01-01] MEDS: LISINOPRIL 20 MG TAB PO SCH (08:21)
[2017-01-01] MEDS: CARVEDILOL 12.5 MG TAB PO SCH ×2 (08:21→21:39)
[2017-01-01] MEDS: DULoxetine HCL 60 MG CAPSULE.DR PO SCH (08:21)
[2017-01-01 12:01] LABS: Glucose,Whole Blood 155 mg/dL (75-99)
--- NOTE | 2017-01-01 14:31 | P.PN ---
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 He underwent an extensive evaluation in the ER was not found to have any infection. He was admitted to the general medical floor for further monitoring and care. He had blood cultures come back positive for gram- negative bacilli. He had recently had a Citrobacter bloodstream infection in November. Underwent a CT of the brain which showed no acute process. He underwent an abdominal ultrasound which showed possible structure in the gallbladder fossa but no abscess. He then underwent an MRCP showed a 1.3 x 0.9 x 1.4 cm oval lesion in the expected location of the gallbladder fossa of undetermined etiology. This did not appear to be an abscess. Delayed Charting patient seen at 1030 Patient seen and examined at bedside. Headache resolved, muslce cramping improved, feeling better, having diarrhea. No chest pain or shortness of breath. at bedside. Spent 30 minutes updating on test results. Per was having several days of abdominal cramping and diarrhea after meals prior to coming to hospital- patient doesn't think this was out of the norm for him. Objective - Vital Signs Vital signs: Vital Signs Temp 98.6 F 01/01/17 07:12 Pulse 86 01/01/17 07:12 Resp 16 01/01/17 07:12 BP 145/79 01/01/17 07:12 Pulse Ox 94 L 01/01/17 07:12 Intake & Output 12/31/16 01/01/17 01/01/17 18:59 06:59 18:59 Other: Voiding Method Toilet Toilet Toilet # Voids 1 1 1 # Bowel Movements 3 - Exam General: Non toxic, no distress, appears at stated age Derm: no rashes, no lesions Head: atraumatic, normocephalic, symmetric Eyes: EOMI, no lid lag, anicteric sclera ENT: no post nasal drip, no thrush Mouth: no lip lesion, mucus membranes moist Cardiovascular: S1S2 reg, no murmur, positive posterior tibial pulse bilateral, Lungs: Decreased breath sounds bilateral bases, no rhonchi, no rales , no accessory muscle use Abdominal: soft, nontender to palpation, no guarding, no appreciable organomegaly Ext: no gross muscle atrophy, no edema, no contractures Neuro: CN II-XI grossly intact, no focal neuro deficits Psych: Alert, oriented, appropriate affect - Labs CBC & Chem 7: 12/31/16 06:29 01/01/17 07:20 Labs: Abnormal Lab Results - Last 24 Hours (Table) 12/31/16 12/31/16 01/01/17 Range/Units 16:36 20:23 07:02 Chloride (98-107) mmol/L Carbon Dioxide (22-30) mmol/L Glucose (74-99) mg/dL POC Glucose (mg/dL) 102 H 160 H 106 H (75-99) mg/dL Calcium (8.4-10.2) mg/dL 01/01/17 01/01/17 Range/Units 07:20 11:59 Chloride 112 H (98-107) mmol/L Carbon Dioxide 19 L (22-30) mmol/L Glucose 106 H (74-99) mg/dL POC Glucose (mg/dL) 155 H (75-99) mg/dL Calcium 8.3 L (8.4-10.2) mg/dL Microbiology - Last 24 Hours (Table) 12/29/16 19:40 Blood Culture Gram Stain - Final Blood Blood Culture - Final Escherichia coli Assessment and Plan Plan: #Re-current Gram negative bacteremia- this time e. coli instead of citrobacter -ID recommendations appreciated -Continue Rocephin -Head CT negative -MRCP with structure in the gallbladder fossa that does not appear to be abscess - finding not mentioned on CT abdomen and pelvis - CT chest without definitive source, CT abdomen and pelvis with mild diverticulitis-patient does have diarrhea but no abdominal pain -Echocardiogram negative for signs of endocarditis -Consult surgery regarding structure in gallbladder fossa #Hyperchloremic metabolic acidosis -Likely secondary to normal saline use -Discontinue normal saline -Repeat BMP in a.m. 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
[2017-01-01 17:04] LABS: Glucose,Whole Blood 123 mg/dL (75-99)
[2017-01-01 20:36] LABS: Glucose,Whole Blood 154 mg/dL (75-99)
[2017-01-01] MEDS: ATORVASTATIN 20 MG TAB PO SCH (21:28)
[2017-01-01] MEDS: NORTRIPTYLINE 25 MG CAP PO SCH (21:40)
[2017-01-01] MEDS: cefTRIAXone 2,000 MG in SODIUM CHLORIDE 0.9% 100 ML IVPB SCH (23:43)
[2017-01-02 07:11] LABS: Anion Gap 9 mmol/L; Blood Urea Nitrogen 12 mg/dL (9-20); Calcium 8.5 mg/dL (8.4-10.2); Carbon Dioxide 24 mmol/L (22-30); Chloride 109 mmol/L (98-107); Glucose 103 mg/dL (74-99); Non-African American GFR(MDRD) >60 (>60 ml/min/1.73 sqM); Potassium 3.5 mmol/L (3.5-5.1); Sodium 142 mmol/L (137-145)
[2017-01-02 07:22] LABS: Glucose,Whole Blood 112 mg/dL (75-99)
[2017-01-02] MEDS: LIRAGLUTIDE 0.6 MG SQ SCH (07:57)
[2017-01-02] MEDS: CARVEDILOL 12.5 MG TAB PO SCH (07:58)
[2017-01-02] MEDS: DULoxetine HCL 60 MG CAPSULE.DR PO SCH (07:58)
[2017-01-02] MEDS: MULTIVITAMINS, THERA 1 EACH TAB PO SCH (07:59)
[2017-01-02] MEDS: LISINOPRIL 20 MG TAB PO SCH (07:59)
[2017-01-02] MEDS: LORazepam 1 MG TAB PO SCH ×2 (07:59→13:38)
[2017-01-02] MEDS: TERAZOSIN 2 MG CAP PO SCH (08:00)
[2017-01-02] MEDS ORDERED: FUROSEMIDE 20 MG TAB PO SCH (09:00)
[2017-01-02 11:23] LABS: Glucose,Whole Blood 165 mg/dL (75-99)
[2017-01-02] MEDS ORDERED: LACTOBACILLUS ACIDOPH & BULGAR 1 EACH PACKET PO SCH (12:15)
--- NOTE | 2017-01-02 14:04 | CDI ---
In responding to this query, please exercise your independent professional judgment. The [facility] Coding Staff and Clinical Documentation Specialists appreciate your assistance in clarifying documentation, maintaining compliance with coding guidelines, accurately documenting patients condition and capturing severity of illness. The fact that a question is asked does not imply that any particular answer is desired or expected. Communication forms are a method of clarifying documentation and are not made part of the Legal Health Record. Thank you in advance for your clarification. Last Revision, February 2015 Carola Hogan [address] [place] [address] Documentation Clarification Form Date: 01/02/2017 1:45:00 PM From: Dinorah Yoder CDS Admit Date: 12/29/2016 8:55:00 PM Patient Name: Edison Andrews Visit Number: [id number] Dr. Duncan Ortega, 71 year old patient presents with fever and chills x 1 day and mild head ache. History of recurrent sepsis. He had a "cholecystectomy with sepsis earlier this summer then gram negative sepsis November 2016" per ID consult. Patient presents with a BUN/CR/GFR of: BUN 25 CR 1.40 GFR 50 History/Risk Factors: CKD 3, HTN, DM 2, Clinical Indicators BUN/CR: 25/1.4 22/1.36 16/1.28 Treatment: NS bolus, NS!120 In order to capture the severity of condition, please clarify if the condition signifies: Acute renal failure Please specify (if known): Cortical, Medullary, or Tubular Necrosis? Acute kidney injury Acute on chronic renal failure Unable to determine Other, specify Please document in your progress notes and discharge summary in order to capture severity of illness and risk of mortality. Include clinical findings that support your diagnosis. FYI: Press F11 to launch patient chart. Thank you. SINCERE
[2017-01-02 14:23] VITALS: BP 153/84; PULSE 83; RESP 16; TEMP 97.2
--- NOTE | 2017-01-02 14:25 | CDI ---
In responding to this query, please exercise your independent professional judgment. The [facility] Coding Staff and Clinical Documentation Specialists appreciate your assistance in clarifying documentation, maintaining compliance with coding guidelines, accurately documenting patients condition and capturing severity of illness. The fact that a question is asked does not imply that any particular answer is desired or expected. Communication forms are a method of clarifying documentation and are not made part of the Legal Health Record. Thank you in advance for your clarification. Last Revision, July 2016 Carola Hogan [address] [facility] [place] [address] Documentation Clarification Form Date: 01/02/2017 2:07:00 PM From: Dinorah Yoder RN, CDS Admit Date: 12/29/2016 8:55:00 PM Patient Name: Edison Andrews Visit Number: [id number] Dr. Duncan Ortega, 71 year old patient admitted with fever, chills, rigors, mild headache, Patient has a history of Gram negative sepsis 1 month ago with Citrobacter. Gram negative sepsis was documented in ID consult note. History/Risk Factors: DM 2, Sepsis gram negative November 2016, Cholecystitis with sepsis Clinical Indicators: VS: T102.0 100.5 101.0, HR114 111 106 102 R18 BP172/ 95 Sat97, Lactic Acid 2.0, Blood Culture 12/29: + Escherichia coli 1/2 Treatment: ID consult, NS bolus, NS@120, IV Vanco, IV Rocephin : In your professional opinion, please clarify if these findings signify one of the following conditions, whether the condition is POA, and cause, if known: Sepsis, present on admission Sepsis, ruled out Severe Sepsis Unable to determine Other, please specify Present on Admission: Yes No * Identify the (suspected) organism * Link or clarify if there is associated (due to/with): - Organ failure - Shock SIRS Criteria: 2 or more of the following may indicate SIRS Temperature < 96.8F(36C) or > 101.0F (38C) Heart Rate > 90 bpm Respiratory Rate > 20 breaths/min or PaCO2 < 32 mmHg White Blood Cell Count > 12,000 or < 4,000 cells/mm3 or > 10% bands Lactate >2.0 mmol/L (>4.0 is equivalent to septic shock) Please document in your progress notes and discharge summary in order to capture severity of illness and risk of mortality. Include clinical findings that support your diagnosis. FYI: Press F11 to launch patient chart. Thank you. SINCERE
--- NOTE | 2017-01-02 14:45 | P.CNPUL ---
History of Present Illness Consult date: 01/02/17 Reason for consult: other (Abdominal pain) History of present illness: 71-year-old male being seen at the request of the attending for surgical eval for structure in the gallbladder fossa noted on imaging with recommendations from surgery. Patient is known to Dr. nieves service. Patient was seen on 09/26/2016 for chief complaint of abdominal pain. At that time the patient had a CAT scan done that showed evidence of diverticulitis as well as possible cholecystitis with cholelithiasis. Patient had elevated liver function studies done at that time underwent a laparoscopic cholecystectomy on September 28 additionally the patient had a colonoscopy done in July 2016 at that time there were no acute findings. Patient was readmitted on November 15 patient had gram-negative bacteremia followed by infectious disease source of infection at that time was not clear Patient has had this admission CAT scan of the head which was negative CT of the chest showed no definitive source CT of the abdomen pelvis mild diverticulitis noted the patient has no abdominal pain and no loose stool. Also echocardiogram was negative for signs of endocarditis MRCP with structure in the gallbladder fossa did not appear to be an abscess was not mentioned on a prior computed tomography scan abdomen and pelvis additionally patient underwent an MRI of the liver pancreas and the biliary tree were noted to be normal pancreatic duct normal there was no abnormal fluid collection to suggest an abscess. There was 1.3 x 1.4 cm oval lesion in the expected location of the gallbladder fossa etiology uncertain Patient is being seen sitting up in a chair states he has no abdominal pain. Patient stated that he recently returned from a vacation and had been doing relatively well. He stated that he did complete a course of antibiotic therapy per recommendations of infectious disease. He states over the last 3 weeks after completion of antibiotic therapy had no symptoms. He states the symptoms occurred recently again with high-grade temp fever chills body aches with a headache similar to prior episodes patient expresses a sense of frustration not being able to understand what is causing the above symptoms Review of Systems Essentially unremarkable except as mentioned in the present illness Past Medical History Past Medical History: Diabetes Mellitus, Fibromyalgia, Hyperlipidemia, Hypertension, Myocardial Infarction (OR), Renal Disease Additional Past Medical History / Comment(s): transient global amnesia Last Myocardial Infarction Date:: 2010 History of Any Multi-Drug Resistant Organisms: None Reported Past Surgical History: Adenoidectomy, Cholecystectomy, Heart Catheterization With Stent Past Anesthesia/Blood Transfusion Reactions: No Reported Reaction Date of Last Stent Placement:: 2010 Past Psychological History: Anxiety Additional Psychological History / Comment(s): . Retired. Recently traveled out east but was not ill at that time. No animal exposures. No tobacco use or alcohol use. Was in the in the [employer] no illnesses during that time Smoking Status: Never smoker Past Alcohol Use History: None Reported Past Drug Use History: None Reported - Past Family History Father Family Medical History: Blood Disorder (thrombocytopenia, had splenectomy) Mother Family Medical History: Cancer Medications and Allergies Home Medications Medication Instructions Recorded Confirmed Type Allopurinol [Zyloprim] 100 mg PO BID 09/25/16 12/29/16 History Aspirin [Adult Low Dose Aspirin EC] 81 mg PO BID 09/25/16 12/29/16 History Carvedilol [Coreg] 25 mg PO BID 09/25/16 12/29/16 History DULoxetine HCL [Cymbalta] 60 mg PO DAILY 09/25/16 12/29/16 History Ergocalciferol [Vitamin D2 50,000 unit PO Q14D 09/25/16 12/29/16 History (DRISDOL)] Furosemide [Lasix] 20 mg PO SUTUWETHSA 09/25/16 12/29/16 History LORazepam [Ativan] 1 mg PO TID PRN 09/25/16 12/29/16 History Liraglutide [Victoza 2-Seferino] 0.6 mg SQ DAILY 09/25/16 12/29/16 History Lisinopril [Zestril] 40 mg PO DAILY 09/25/16 12/29/16 History Multivitamins, Thera [Multivitamin 1 tab PO DAILY 09/25/16 12/29/16 History (formulary)] Nitroglycerin Sl Tabs [Nitrostat] 0.4 mg SUBLINGUAL Q5M PRN 09/25/16 12/29/16 History Nortriptyline HCl [Pamelor] 50 mg PO HS 09/25/16 12/29/16 History [place]-3/Dha/Epa/Fish Oil [Fish Oil 1 cap PO DAILY 09/25/16 12/29/16 History 1,360 mg Softgel] Rosuvastatin [Crestor] 10 mg PO HS 09/25/16 12/29/16 History Terazosin HCl 2 mg PO BID 09/25/16 12/29/16 History Ubidecarenone [Co Q-10] 100 mg PO DAILY 09/25/16 12/29/16 History Furosemide [Lasix] 40 mg PO MOFR 11/11/16 12/29/16 History Allergies Allergy/AdvReac Type Severity Reaction Status Date / Time adhesive tape Allergy Rash/Hives Verified 12/29/16 20:20 Penicillins Allergy Itching Verified 12/29/16 20:20 prednisone AdvReac DEPRESSION Verified 12/29/16 20:20 WITH LARGE DOSES Physical Exam Vitals: Vital Signs Temp Pulse Resp BP Pulse Ox 01/02/17 07:00 98.7 F 82 12 143/80 97 01/02/17 01:50 97.9 F 77 16 155/89 95 01/01/17 20:00 98.8 F 18 155/88 94 L 01/01/17 15:00 97.4 F L 80 17 148/78 97 Intake and Output 01/01/17 01/02/17 01/02/17 22:59 06:59 14:59 Intake Total 200 430 Balance 200 430 Intake: Oral 200 430 Other: Voiding Method Toilet # Voids 1 1 GENERAL APPEARANCE: Very pleasant 71-year-old gentleman patient is alert, oriented, in no acute distress. Sitting up in a chair VITAL SIGNS: Reviewed HEENT: Head is normocephalic and atraumatic. Pupils are equal and reactive. The nares are patent. Oropharynx is clear without lesions. No evidence of oral thrush NECK: Supple without lymphadenopathy. Traches midline. HEART: S1, S2. Regular rate and rhythm. No murmur noted denying chest pain LUNGS: No crackles or wheezes are heard. Adequate air movement bilaterally no cough noted no shortness of breath ABDOMEN: Soft, nontender, nondistended with good bowel sounds. No peritoneal signs. No palpable organomegaly or masses. No facial grimacing with palpitation to the abdominal denying abdominal pain states no stooling no difficulty in urinating no burning or frequency EXTREMITIES: Normal skin color and turgor. No cyanosis, rash, ulceration, clubbing or edema. Radial pedal pulses are 2/4 bilaterally. NEUROLOGICAL: No focal deficits. Strength and sensation are grossly intact. Results - Laboratory Findings CBC and BMP: 12/31/16 06:01/02/17 06:37 PT/INR, D-dimer PT 10.6 sec (9.0-12.0) 12/29/16 19:40 INR 1.0 (<1.2) 12/29/16 19:40 Abnormal lab findings: Abnormal Labs 12/29/16 12/29/16 12/29/16 19:40 19:40 20:01 Plt Count 100 L Lymphocytes # 0.4 L Chloride Carbon Dioxide BUN 25 H Creatinine 1.40 H Glucose 139 H POC Glucose (mg/dL) Calcium Albumin Urine Protein 3+ H Urine Bacteria Rare H Urine Mucus Rare H 12/30/16 12/30/16 12/30/16 07:04 07:22 07:22 Plt Count 103 L Lymphocytes # 0.5 L Chloride 110 H Carbon Dioxide 21 L BUN 22 H Creatinine 1.36 H Glucose 122 H POC Glucose (mg/dL) 119 H Calcium 7.9 L Albumin Urine Protein Urine Bacteria Urine Mucus 12/30/16 12/30/16 12/30/16 11:40 16:31 20:46 Plt Count Lymphocytes # Chloride Carbon Dioxide BUN Creatinine Glucose POC Glucose (mg/dL) 127 H 113 H 157 H Calcium Albumin Urine Protein Urine Bacteria Urine Mucus 12/31/16 12/31/16 12/31/16 06:29 06:29 07:16 Plt Count 105 L Lymphocytes # Chloride 109 H Carbon Dioxide BUN Creatinine 1.28 H Glucose 108 H POC Glucose (mg/dL) 109 H Calcium Albumin 3.3 L Urine Protein Urine Bacteria Urine Mucus 12/31/16 12/31/16 12/31/16 11:57 16:36 20:23 Plt Count Lymphocytes # Chloride Carbon Dioxide BUN Creatinine Glucose POC Glucose (mg/dL) 213 H 102 H 160 H Calcium Albumin Urine Protein Urine Bacteria Urine Mucus 01/01/17 01/01/17 01/01/17 07:02 07:20 11:59 Plt Count Lymphocytes # Chloride 112 H Carbon Dioxide 19 L BUN Creatinine Glucose 106 H POC Glucose (mg/dL) 106 H 155 H Calcium 8.3 L Albumin Urine Protein Urine Bacteria Urine Mucus 01/01/17 01/01/17 01/02/17 17:02 20:00 06:37 Plt Count Lymphocytes # Chloride 109 H Carbon Dioxide BUN Creatinine Glucose 103 H POC Glucose (mg/dL) 123 H 154 H Calcium Albumin Urine Protein Urine Bacteria Urine Mucus 01/02/17 01/02/17 07:18 11:14 Plt Count Lymphocytes # Chloride Carbon Dioxide BUN Creatinine Glucose POC Glucose (mg/dL) 112 H 165 H Calcium Albumin Urine Protein Urine Bacteria Urine Mucus Assessment and Plan Plan: Impression Fever chills rigors muscle aches present on admission unclear etiology Thrombocytopenia Gram-negative sepsis Recent treatment November 2016 gram-negative sepsis Laparoscopic cholecystectomy for chronic cholecystitis September 2016 History of colonoscopy July 2016 with no acute findings CAT scan abdomen and pelvis show possible sigmoid diverticulitis 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 coli Urine culture this admission no evidence of a UTI Ultrasound abdomen this admission possible structure in the gallbladder fossa but no abscess MRCP showed oval lesion in the expected location of the gallbladder fossa undetermined etiology Plan No evidence of an acute surgical abdomen at this time Repeat labs in the morning follow up on results Continue recommendations by infectious disease defer to continue to monitor surgical course with further recommendations pending updated on the clinical findings questions answered by Dr. NIEVES The above impression and plan of care have been discussed and directed by signing physician. Orly Reyes nurse practitioner acting as scribe for signing physician.
[2017-01-02 17:04] LABS: Glucose,Whole Blood 122 mg/dL (75-99)
--- NOTE | 2017-01-02 17:42 | P.PN ---
Subjective Principal diagnosis: Bacteremia Patient is a 71-year-old male with a past medical history of hypertension, diabetes mellitus type 2, and chronic kidney disease stage III secondary to focal segmental glomerular sclerosis who presented with right years. He underwent an extensive evaluation in the ER was not found to have any infection. He was admitted to the general medical floor for further monitoring and care. He had blood cultures come back positive for EColi. He had recently had a Citrobacter bloodstream infection in November. Underwent a CT of the brain which showed no acute process. He underwent an abdominal ultrasound which showed possible structure in the gallbladder fossa but no abscess. He then underwent an MRCP showed a 1.3 x 0.9 x 1.4 cm oval lesion in the expected location of the gallbladder fossa of undetermined etiology. This did not appear to be an abscess. Objective - Vital Signs Vital signs: Vital Signs Temp 97.2 F L 01/02/17 14:23 Pulse 83 01/02/17 14:23 Resp 16 01/02/17 14:23 BP 153/84 01/02/17 14:23 Pulse Ox 95 01/02/17 14:23 Intake & Output 01/01/17 01/02/17 01/02/17 18:59 06:59 18:59 Intake Total 200 430 Balance 200 430 Intake: Oral 200 430 Other: Voiding Method Toilet Toilet # Voids 1 1 - Exam gen:alert and oriented lungs:clear to auscultation heart:s1s2 abdomen:soft and depressible,non tender ext:no edema - Labs CBC & Chem 7: 12/31/16 06:29 01/02/17 06:37 Labs: Abnormal Lab Results - Last 24 Hours (Table) 01/01/17 01/01/17 01/02/17 Range/Units 17:02 20:00 06:37 Chloride 109 H (98-107) mmol/L Glucose 103 H (74-99) mg/dL POC Glucose (mg/dL) 123 H 154 H (75-99) mg/dL 01/02/17 01/02/17 Range/Units 07:18 11:14 Chloride (98-107) mmol/L Glucose (74-99) mg/dL POC Glucose (mg/dL) 112 H 165 H (75-99) mg/dL Microbiology - Last 24 Hours (Table) 12/29/16 19:40 Blood Culture Gram Stain - Final Blood Blood Culture - Final Escherichia coli Assessment and Plan (1) Gram negative sepsis Narrative/Plan: Currently on Rocephin Source of infection is thought to be diverticulitis. General surgery will discuss with Dr. Thao Status: Acute (2) Systemic inflammatory response syndrome (SIRS) Narrative/Plan: Currently resolved Status: Acute (3) Type 2 diabetes mellitus Narrative/Plan: Coronary controlled continue Accu-Cheks Status: Acute (4) CKD (chronic kidney disease) Narrative/Plan: Currently stable Status: Acute (5) Cardiomyopathy Narrative/Plan: Compensated at this time Continue Lasix Status: Acute (6) Hyperlipidemia Status: Acute (7) Essential hypertension Narrative/Plan: Continue Coreg and lisinopril controlled Status: Acute Plan: 71-year-old male was admitted with symptoms of fever and SIRS. Found to have E. coli bacteremia. Antibiotics patient is feeling much better at this time. Workup was essentially negative except for some mild diverticulitis. I discussed with Dr. Thao and Dr. Sands from general surgery. Patient will be discharged home on oral Cipro. Will have outpatient colonoscopy set up with general surgery.
--- NOTE | 2017-01-02 18:06 | P.DS ---
Providers Date of admission: 12/29/16 20:55 Attending physician: Gio Rodriguez MD Consults: 12/29/16 22:23 Consult Physician Routine Consulting Provider: Chris Thao Consult Reason/Comments: FuO Do you want consulting provider notified?: Yes, Notify in am 01/01/17 14:45 Consult Physician Routine Consulting Provider: Rusty Anaya Consult Reason/Comments: Lap nasrin september 2016, ABD US and MRCP with structure in gallbladder fossa Do you want consulting provider notified?: Yes 01/02/17 17:07 Consult Physician Routine Consulting Provider: Rusty Anaya Consult Reason/Comments: recurrent sepsis, please schedule outpat colonscopy 2weeks Do you want consulting provider notified?: Yes Primary care physician: Arnaud Gonsalez - Rosemarie Diagnosis(es) (1) Gram negative sepsis Current Visit: Yes Status: Acute (2) Systemic inflammatory response syndrome (SIRS) Current Visit: Yes Status: Acute (3) Type 2 diabetes mellitus Current Visit: Yes Status: Acute (4) CKD (chronic kidney disease) Current Visit: Yes Status: Acute (5) Cardiomyopathy Current Visit: Yes Status: Acute (6) Hyperlipidemia Current Visit: Yes Status: Acute (7) Essential hypertension Current Visit: Yes Status: Acute Hospital Course: This is a 71-year-old male was admitted with symptoms of fever. Patient found to have E. coli bacteremia. Workup included abdominal ultrasound CT of the abdomen and pelvis and MRI of the liver. The lesion was described on the MRI in the gallbladder fossa to be not an abscess after review by Dr. Marti neuroradiologist. Source of the infection is thought to be possibly from the sigmoid diverticulitis. At this point is to send patient home on oral antibiotics. Did discuss with Dr. More that the plan is for possible outpatient colonoscopy as an outpatient once the diverticulitis had resolved. Time spent on discharge is 34 min. Patient Condition at Discharge: Stable Plan - Discharge Summary New Discharge Prescriptions: New Ciprofloxacin HCl [Cipro] 500 mg PO Q12HR #28 tablet Continue Ubidecarenone [Co Q-10] 100 mg PO DAILY Multivitamins, Thera [Multivitamin (formulary)] 1 tab PO DAILY Aspirin [Adult Low Dose Aspirin EC] 81 mg PO BID Nitroglycerin Sl Tabs [Nitrostat] 0.4 mg SUBLINGUAL Q5M PRN PRN Reason: Chest Pain LORazepam [Ativan] 1 mg PO TID PRN PRN Reason: Anxiety Ergocalciferol [Vitamin D2 (DRISDOL)] 50,000 unit PO Q14D Rosuvastatin [Crestor] 10 mg PO HS Nortriptyline HCl [Pamelor] 50 mg PO HS Liraglutide [Victoza 2-Seferino] 0.6 mg SQ DAILY DULoxetine HCL [Cymbalta] 60 mg PO DAILY Allopurinol [Zyloprim] 100 mg PO BID Lisinopril [Zestril] 40 mg PO DAILY Terazosin HCl 2 mg PO BID Carvedilol [Coreg] 25 mg PO BID [place]-3/Dha/Epa/Fish Oil [Fish Oil 1,360 mg Softgel] 1 cap PO DAILY Furosemide [Lasix] 40 mg PO MOFR No Action Furosemide [Lasix] 20 mg PO SUTUWETHSA Discharge Medication List Allopurinol [Zyloprim] 100 mg PO BID 09/25/16 [History] Aspirin [Adult Low Dose Aspirin EC] 81 mg PO BID 09/25/16 [History] Carvedilol [Coreg] 25 mg PO BID 09/25/16 [History] DULoxetine HCL [Cymbalta] 60 mg PO DAILY 09/25/16 [History] Ergocalciferol [Vitamin D2 (DRISDOL)] 50,000 unit PO Q14D 09/25/16 [History] Furosemide [Lasix] 20 mg PO SUTUWETHSA 09/25/16 [History] LORazepam [Ativan] 1 mg PO TID PRN 09/25/16 [History] Liraglutide [Victoza 2-Seferino] 0.6 mg SQ DAILY 09/25/16 [History] Lisinopril [Zestril] 40 mg PO DAILY 09/25/16 [History] Multivitamins, Thera [Multivitamin (formulary)] 1 tab PO DAILY 09/25/16 [History ] Nitroglycerin Sl Tabs [Nitrostat] 0.4 mg SUBLINGUAL Q5M PRN 09/25/16 [History] Nortriptyline HCl [Pamelor] 50 mg PO HS 09/25/16 [History] [place]-3/Dha/Epa/Fish Oil [Fish Oil 1,360 mg Softgel] 1 cap PO DAILY 09/25/16 [ History] Rosuvastatin [Crestor] 10 mg PO HS 09/25/16 [History] Terazosin HCl 2 mg PO BID 09/25/16 [History] Ubidecarenone [Co Q-10] 100 mg PO DAILY 09/25/16 [History] Furosemide [Lasix] 40 mg PO MOFR 11/11/16 [History] Ciprofloxacin HCl [Cipro] 500 mg PO Q12HR #28 tablet 01/02/17 [Rx] Follow up Appointment(s)/Referral(s): Chris Thao MD [STAFF PHYSICIAN] - 1 Week Arnaud Gonsalez MD [Primary Care Provider] - 1-2 days Rusty Anaya MD [STAFF PHYSICIAN] - 01/10/17 3:30 pm
--- NOTE | 2017-01-02 18:08 | P.PN ---
Progress Note - Text sepsis present on admission
--- NOTE | 2017-01-02 21:11 | P.PN ---
Subjective Principal diagnosis: Sepsis 71-year-old male presents to the emergency center with a relatively short history of high-grade fever chills or myalgias. He has a very pertinent recent past medical history in that he had a bout of sepsis earlier in the summer. Workup at that time revealed evidence of acute cholecystitis and was taken to the operating room and a cholecystectomy was performed. Afterwards he had gradual resolution of his symptoms and resolved his sepsis. He recovered from his surgery. He was well enough to go to a vacation in [place]. He felt well during that time. However upon returning home he started to have the symptoms of the fever and chills reminiscent of how he felt earlier in the summer. Because of that he was brought to the emergency center. Cultures been performed and gram-negative bacilli was isolated and Citrobacter was found. Susceptible to quinolone and he was discharged on levofloxacin therapy. He's done well over the last 3 weeks after antibiotics completed. There were now again presents with high-grade fever and chill associated with rigor as well as myalgias and headache. Again feeling quite similar to how he felt before. In the emergency center influenza testing is come back as negative. Blood cultures are positive for gram-negative bacilli. The blood cultures now been isolated is Escherichia coli. Which is different than his last positive blood culture. Long discussion with the family and hospitalist occurs. Objective - Vital Signs Vital signs: Vital Signs Temp 97.2 F L 01/02/17 14:23 Pulse 83 01/02/17 14:23 Resp 16 01/02/17 14:23 BP 153/84 01/02/17 14:23 Pulse Ox 95 01/02/17 14:23 Intake & Output 01/02/17 01/02/17 01/03/17 06:59 18:59 06:59 Intake Total 200 667 Balance 200 667 Intake: Oral 200 667 Other: Voiding Method Toilet # Voids 1 2 - Exam Very pleasant 71-year-old male who has had fever chills and rigor and generalized body ache. These symptoms have now much improved. No fever for 48 hours. HEENT: Anicteric conjunctiva are pink and moist nasal mucosa grossly intact without significant lesions, there is no thrush. Neck: The neck is supple without significant lymphadenopathy or thyromegaly. Lungs: Symmetrical air entry with only few basilar crackles no bronchial sounds or egophony or dullness is noted Heart: Regular rate and rhythm with an audible S1-S2, no S3 soft S4. There is no significant murmur click or rub, PMI was nondisplaced. Abdomen: Positive bowel sounds soft and nontender without palpable masses or organomegaly. There was no guarding or rebound. Extremities: The upper extremities have excellent pulses they are symmetric, no significant petechiae or telangiectasia. No splinter hemorrhages were noted. The lower extremities are free from significant edema. The peripheral pulses were 2+ and symmetric. Neuro: Awake alert oriented to person place and time. There are no acute new gross focal sensory motor deficits - Labs CBC & Chem 7: 12/31/16 06:29 01/02/17 06:37 Labs: Abnormal Lab Results - Last 24 Hours (Table) 01/02/17 01/02/17 01/02/17 Range/Units 06:37 07:18 11:14 Chloride 109 H (98-107) mmol/L Glucose 103 H (74-99) mg/dL POC Glucose (mg/dL) 112 H 165 H (75-99) mg/dL 01/02/17 Range/Units 17:00 Chloride (98-107) mmol/L Glucose (74-99) mg/dL POC Glucose (mg/dL) 122 H (75-99) mg/dL Laboratory Results WBC 7.6 k/uL (3.8-10.6) 12/31/16 06:29 RBC 4.50 m/uL (4.30-5.90) 12/31/16 06:29 Hgb 14.1 gm/dL (13.0-17.5) 12/31/16 06:29 Hct 42.2 % (39.0-53.0) 12/31/16 06:29 MCV 93.7 fL (80.0-100.0) 12/31/16 06:29 MCH 31.3 pg (25.0-35.0) 12/31/16 06: MCHC 33.4 g/dL (31.0-37.0) 12/31/16 06:29 RDW 14.9 % (11.5-15.5) 12/31/16 06:29 Plt Count 105 k/uL (150-450) L 12/31/16 06:29 Neutrophils % 85 % 12/30/16 07:22 Lymphocytes % 6 % 12/30/16 07:22 Monocytes % 6 % 12/30/16 07:22 Eosinophils % 1 % 12/30/16 07:22 Basophils % 0 % 12/30/16 07:22 Neutrophils # 7.3 k/uL (1.3-7.7) 12/30/16 07:22 Lymphocytes # 0.5 k/uL (1.0-4.8) L 12/30/16 07:22 Monocytes # 0.5 k/uL (0-1.0) 12/30/16 07:22 Eosinophils # 0.1 k/uL (0-0.7) 12/30/16 07:22 Basophils # 0.0 k/uL (0-0.2) 12/30/16 07:22 ESR 12 mm/hr (0-15) 12/29/16 19:40 PT 10.6 sec (9.0-12.0) 12/29/16 19:40 INR 1.0 (<1.2) 12/29/16 19:40 APTT 23.0 sec (22.0-30.0) 12/29/16 19:40 Sodium 142 mmol/L (137-145) 01/02/17 06:37 Potassium 3.5 mmol/L (3.5-5.1) 01/02/17 06:37 Chloride 109 mmol/L (98-107) H 01/02/17 06:37 Carbon Dioxide 24 mmol/L (22-30) 01/02/17 06:37 Anion Gap 9 mmol/L 01/02/17 06:37 BUN 12 mg/dL (9-20) 01/02/17 06:37 Creatinine 1.13 mg/dL (0.66-1.25) 01/02/17 06:37 Est GFR (MDRD) Af Amer >60 (>60 ml/min/1.73 sqM) 01/02/17 06:37 Est GFR (MDRD) Non-Af >60 (>60 ml/min/1.73 sqM) 01/02/17 06:37 Glucose 103 mg/dL (74-99) H 01/02/17 06:37 POC Glucose (mg/dL) 122 mg/dL (75-99) H 01/02/17 17:00 POC Glu Personal Trainer ID 01/02/17 17:[address] Glu mg/dL 128 mg/dL 12/31/16 06:29 Hemoglobin A1c 6.1 % (4.2-6.1) 12/31/16 06:29 Plasma Lactic Acid Axel 2.0 mmol/L (0.7-2.0) 12/29/16 19:40 Calcium 8.5 mg/dL (8.4-10.2) 01/02/17 06:37 Total Bilirubin 0.6 mg/dL (0.2-1.3) 12/31/16 06:29 AST 31 U/L (17-59) 12/31/16 06:29 ALT 49 U/L (21-72) 12/31/16 06:29 Alkaline Phosphatase 78 U/L (38-126) 12/31/16 06:29 Troponin I <0.012 ng/mL (0.000-0.034) 12/29/16 19:40 C-Reactive Protein <5.0 mg/L (<10.0) 12/29/16 19:40 Total Protein 6.3 g/dL (6.3-8.2) 12/31/16 06:29 Albumin 3.3 g/dL (3.5-5.0) L 12/31/16 06:29 TSH 2.740 mIU/L (0.465-4.680) 12/29/16 19:40 Urine Color Light Yellow 12/29/16 20:01 Urine Appearance Clear (Clear) 12/29/16 20:01 Urine pH 6.0 (5.0-8.0) 12/29/16 20:01 Ur Specific [place] 1.007 (1.001-1.035) 12/29/16 20:01 Urine Protein 3+ (Negative) H 12/29/16 20:01 Urine Glucose (UA) Negative (Negative) 12/29/16 20:01 Urine Ketones Negative (Negative) 12/29/16 20:01 Urine Blood Negative (Negative) 12/29/16 20:01 Urine Nitrite Negative (Negative) 12/29/16 20:01 Urine Bilirubin Negative (Negative) 12/29/16 20:01 Urine Urobilinogen <2.0 mg/dL (<2.0) 12/29/16 20:01 Ur Leukocyte Esterase Negative (Negative) 12/29/16 20:01 Urine RBC <1 /hpf (0-5) 12/29/16 20:01 Urine WBC 1 /hpf (0-5) 12/29/16 20:01 Urine Bacteria Rare /hpf (None) H 12/29/16 20:01 Hyaline Casts 1 /lpf (0-2) 12/29/16 20:01 Urine Mucus Rare /hpf (None) H 12/29/16 20:01 Rheumatoid Factor <9 IU/mL (<12) 12/29/16 19:40 C. difficile (EIA) Intrp Negative (Negative) 12/31/16 23:00 HIV-1 Antibody Non-Reactive (Non-Reactive) 12/29/16 19:40 HIV Ag/Ab Interpret (()) 12/29/16 19:40 HIV p24 Antibody Non-Reactive (Non-Reactive) 12/29/16 19:40 HIV-2 Antibody Non-Reactive (Non-Reactive) 12/29/16 19:40 HIV P24 Antigen Non-Reactive (Non-Reactive) 12/29/16 19:40 Influenza Type A RNA Not Detected (Not Detectd) 12/29/16 21:01 Influenza Type B (PCR) Not Detected (Not Detectd) 12/29/16 21:01 Microbiology 12/29/16 19:40 Blood Blood Culture Gram Stain - Final 12/29/16 19:40 Blood Blood Culture - Final Escherichia coli 12/29/16 20:01 Urine,Voided Urine Culture - Final 12/29/16 19:40 Blood Blood Culture - Final Assessment and Plan (1) Gram negative sepsis Narrative/Plan: Pleasant 71-year-old male presents to hospital with complaints of high -grade fever chill rigors myalgias and some headache. He is feeling very much like he did approximate one month ago. At which point in time he had Citrobacter freundii bacteremia. He does have a history of the cholecystectomy performed early in the summer at which point in time he also had sepsis. He then had a bout of gram-negative sepsis in November in no about 5 weeks later again has a bout of sepsis. During his last stay he was evaluated and computed tomography scan was performed without evidence of any significant focus. However with his history of the gangrenous cholecystitis, there is ongoing concerns to potential biliary tract versus ductal disease. An ultrasound of the biliary tract and prior gallbladder site was obtained. A computed tomography scan of the chest as abdomen and pelvis was performed. An MR of the biliary tree was also performed. The studies were all reviewed with the radiologist. At the prior gallbladder site no evidence of abscess is seen. The patient's computed tomography scan however does show evidence of diverticulitis of the sigmoid colon. Overall mild is the only significant noted abnormality. This [place] discussed with the patient, and hospitalist as the likely source of his current infection. Could also be the source of his other recent infection especially with the different pathogen. Colonic source of infection can result in different species because of the stool janette. At this time will complete a course of ciprofloxacin because of his bacteremia. At the completion of his antibiotic therapy will be seen again by his surgeon who performed the cholecystectomy and an outpatient elective colonoscopy will be performed with attention to the sigmoid colon. If significant sigmoid diseases seen he may then be a candidate for resection procedure when he is well to prevent further bouts of sepsis if this is the etiology. At this time no other source has become evident. Fortunately he is well will be discharged home today on his course of oral Cipro and follow-up in the office. Status: Acute (2) Thrombocytopenia Status: Acute (3) Focal segmental glomerulosclerosis Status: Acute
--- NOTE | 2017-01-04 07:22 | P.PN ---
Progress Note - Text Pt had mild acute renal injury on admission that resolved upon discharge
[2017-01-12] MEDS ORDERED: ERGOCALCIFEROL 50,000 UNIT CAP PO SCH (09:00)
== END 2017-01-02 18:30 | disposition home or self-care (01) | DRG 872 ==
LOC: EC 19:12 → 3SUR 20:55
PROVIDERS: ADMIT Family Medicine; ATTEND Family Medicine
DX: A41.51 Sepsis due to Escherichia coli [E. coli] (principal); N17.9 Acute kidney failure, unspecified; E11.22 Type 2 diabetes mellitus with diabetic chronic kidney disease; D69.6 Thrombocytopenia, unspecified; K57.32 Diverticulitis of large intestine without perforation or abscess without bleeding; I25.5 Ischemic cardiomyopathy; N18.3 Chronic kidney disease, stage 3 (moderate); N05.1 Unspecified nephritic syndrome with focal and segmental glomerular lesions; I12.9 Hypertensive chronic kidney disease with stage 1 through stage 4 chronic kidney disease, or unspecified chronic kidney disease; E78.5 Hyperlipidemia, unspecified; F41.9 Anxiety disorder, unspecified; M79.7 Fibromyalgia; I25.2 Old myocardial infarction; Z79.82 Long term (current) use of aspirin; Z79.899 Other long term (current) drug therapy; Z95.5 Presence of coronary angioplasty implant and graft; Z90.49 Acquired absence of other specified parts of digestive tract; Z86.69 Personal history of other diseases of the nervous system and sense organs; Z88.0 Allergy status to penicillin; Z88.8 Allergy status to other drugs, medicaments and biological substances; Z91.048 Other nonmedicinal substance allergy status
CPT/HCPCS: 36415; 70450; 71020; 71260; 74177; 74183; 76705; 80048; 80053; 81001; 83036; 83605; 84443; 84484; 85025; 85027; 85610; 85652; 85730; 86140; 86431; 87040; 87077; 87086; 87186; 87324; 87390; 87502; 93005; 93306; 96365; 96366; 96375; 99285

== ENCOUNTER 2017-02-02 08:16 | Inpatient (IN) | payer MEDICARE, BC ==
[2017-01-31 09:33] VITALS: BMI 28.8
[~2017-02-02 08:16] MED LIST: HEPARIN SODIUM,PORCINE 5,000 UNIT/ML 1 ML VIAL SQ ONE; MIDAZOLAM 2 MG/2 ML VIAL IV PRN; MORPHINE SULFATE 2 MG/ML SYRINGE IV PRN; ONDANSETRON 4 MG/2 ML VIAL IVP PRN
[2017-02-02] MEDS ORDERED: LIDOCAINE 1% 20 ML VIAL (10MG/ML) FOR IV START INTRADERMA ONE (09:15)
[2017-02-02 09:21] LABS: Glucose,Whole Blood 148 mg/dL (75-99)
[2017-02-02] MEDS ORDERED: MIDAZOLAM 2 MG/2 ML VIAL IV ONE (09:26)
[2017-02-02] MEDS ORDERED: NALOXONE 0.4 MG/ML 1 ML VIAL IV PRN (09:39)
--- NOTE | 2017-02-02 09:40 | P.GSHP ---
History of Present Illness H&P Date: 02/02/17 Chief Complaint: Diverticulitis This a 71-year-old male who's had several hospital admissions for diverticulitis. Patient presents today for laparoscopic assisted low anterior resection. Patient aware the risks surgery including wound infection, colostomy , bleeding Past Medical History Past Medical History: Diabetes Mellitus, Fibromyalgia, Hyperlipidemia, Hypertension, Myocardial Infarction ([place]), Renal Disease Additional Past Medical History / Comment(s): transient global amnesia, HX OF GOUT, FOCAL SEGMENTAL GLOMERULOSCLEROSIS (FSG- NAME OF RENAL DX), DIVERTICULITIS., STAGE 3 A KIDNEY DISEASE -30% LOSS OF KIDNEY FUNCTION. Last Myocardial Infarction Date:: 2010 History of Any Multi-Drug Resistant Organisms: None Reported Past Surgical History: Appendectomy, Cholecystectomy, Heart Catheterization With Stent Past Anesthesia/Blood Transfusion Reactions: No Reported Reaction, Motion Sickness Date of Last Stent Placement:: 2010 Past Psychological History: Anxiety Additional Psychological History / Comment(s): . Smoking Status: Never smoker Past Alcohol Use History: None Reported Past Drug Use History: None Reported - Past Family History Father Family Medical History: Blood Disorder Mother Family Medical History: Cancer Medications and Allergies Home Medications Medication Instructions Recorded Confirmed Type Allopurinol [Zyloprim] 100 mg PO BID 09/25/16 02/02/17 History Aspirin [Adult Low Dose Aspirin EC] 162 mg PO DAILY 09/25/16 02/02/17 History Carvedilol [Coreg] 25 mg PO BID 09/25/16 02/02/17 History DULoxetine HCL [Cymbalta] 60 mg PO DAILY 09/25/16 02/02/17 History Ergocalciferol [Vitamin D2 50,000 unit PO Q14D 09/25/16 02/02/17 History (DRISDOL)] Furosemide [Lasix] 20 mg PO SUTUWETHSA 09/25/16 02/02/17 History LORazepam [Ativan] 0.5 mg PO TID PRN 09/25/16 02/02/17 History Liraglutide [Victoza 2-Seferino] 0.6 mg SQ DAILY 09/25/16 02/02/17 History Lisinopril [Zestril] 40 mg PO DAILY 09/25/16 02/02/17 History Multivitamins, Thera [Multivitamin 1 tab PO DAILY 09/25/16 02/02/17 History (formulary)] Nitroglycerin Sl Tabs [Nitrostat] 0.4 mg SUBLINGUAL Q5M PRN 09/25/16 02/02/17 History Nortriptyline HCl [Pamelor] 50 mg PO HS 09/25/16 02/02/17 History [place]-3/Dha/Epa/Fish Oil [Fish Oil 1 cap PO DAILY 09/25/16 02/02/17 History 1,360 mg Softgel] Rosuvastatin [Crestor] 10 mg PO HS 09/25/16 02/02/17 History Terazosin HCl 2 mg PO BID 09/25/16 02/02/17 History Ubidecarenone [Co Q-10] 100 mg PO DAILY 09/25/16 02/02/17 History Furosemide [Lasix] 40 mg PO MOFR 11/11/16 02/02/17 History Acetaminophen [Tylenol Extra 500 mg PO DAILY PRN 01/31/17 02/02/17 History Strength] traMADol HCl [Ultram] 50 mg PO Q6H PRN 02/02/17 02/02/17 History Allergies Allergy/AdvReac Type Severity Reaction Status Date / Time adhesive tape Allergy Rash/Hives Verified 02/02/17 09:03 Penicillins Allergy Itching Verified 02/02/17 09:03 NSAIDS (Non-Steroidal AdvReac Unknown UNABLE TO Verified 02/02/17 09:03 Anti-Inflamma TAKE DUE TO KIDNEY DISEASE. prednisone AdvReac DEPRESSION Verified 02/02/17 09:03 WITH LARGE DOSES Surgical - Exam Vital Signs Temp Pulse Resp BP Pulse Ox 97.9 F 93 16 117/76 94 L 02/02/17 09:00 02/02/17 09:00 02/02/17 09:00 02/02/17 09:00 02/02/17 09:00 - General well developed, no distress - Eyes PERRL, normal ocular movement - ENT normal pinna - Neck no masses - Respiratory normal expansion - Cardiovascular Rhythm: regular - Abdomen Mild left-sided abdominal pain Abdomen: soft Results - Labs Abnormal Lab Results - Last 24 Hours (Table) 02/02/17 Range/Units 09:20 POC Glucose (mg/dL) 148 H (75-99) mg/dL Assessment and Plan Assessment: 3 of diverticulitis. We'll perform laparoscopic assisted low anterior resection.
[2017-02-02] MEDS: LACTATED RINGERS 1,000 ML IV SCH (09:49)
[2017-02-02] MEDS ORDERED: MIDAZOLAM 2 MG/2 ML VIAL ONE (10:50)
[2017-02-02] MEDS ORDERED: GLYCOPYRROLATE 0.2 MG/ML 2 ML VIAL ONE (10:50)
[2017-02-02] MEDS ORDERED: SUCCINYLCHOLINE CHLORIDE 100 MG/5 ML SYR IV ONE (10:50)
[2017-02-02] MEDS ORDERED: ROCURONIUM BROMIDE 10 MG/ML 10 ML VIAL IV ONE (10:50)
[2017-02-02] MEDS ORDERED: NEOSTIGMINE 1 MG/ML 10 ML VIAL ONE (10:50)
[2017-02-02] MEDS ORDERED: PHENYLEPHRINE-0.9% NACL SYG 1 MG/10 ML SYRINGE ONE (10:50)
[2017-02-02] MEDS ORDERED: LIDOCAINE 1% INJ 10MG/ML (20 ML MDV) ONE (10:50)
[2017-02-02] MEDS ORDERED: PROPOFOL 10 MG/ML 20 ML VIAL IV ONE (10:50)
[2017-02-02] MEDS ORDERED: fentaNYL (PF) 50 MCG/ML 2 ML AMP ONE (10:50)
[2017-02-02] MEDS ORDERED: LACTATED RINGERS 1,000 ML IV ONE ×2 (11:00→11:53)
[2017-02-02] MEDS ORDERED: BUPIVACAINE (PF) 0.25% 30 ML VIAL SQ ONE ×2 (11:24)
[2017-02-02] MEDS ORDERED: LIDOCAINE 2%-EPI 1:100,000 20 ML VIAL SQ ONE ×2 (11:24)
[2017-02-02] MEDS: BUPIVACAINE (PF) 0.5% 31.3 ML, HYDROMORPHONE (PF) 5 MG in SODIUM CHLORIDE 0.9% 218 ML EPIDURAL PRN ×3 (13:02→14:07)
[2017-02-02] MEDS ORDERED: KETOROLAC 30 MG/ML 1 ML VIAL IVP PRN (13:06)
[2017-02-02] MEDS ORDERED: METOCLOPRAMIDE 5 MG/ML 2 ML VIAL IVP PRN (13:06)
[2017-02-02] MEDS ORDERED: ONDANSETRON 4 MG/2 ML VIAL IVP PRN (13:06)
--- NOTE | 2017-02-02 13:15 | P.OP ---
Date of Procedure: 02/02/17 Preoperative Diagnosis: Diverticulitis Postoperative Diagnosis: Diverticulitis Umbilical hernia Procedure(s) Performed: Laparoscopic low anterior section Repair of umbilical hernia Anesthesia: MEREDITH Surgeon: Rusty Anaya Estimated Blood Loss (ml): 50 Pathology: other (Sigmoid colon) Condition: stable Disposition: PACU Description of Procedure: The patient was placed on the operative table in supine position. He received general anesthesia. His abdomen was prepped and draped usual sterile fashion. He had been placed in dorsal 5 position. The skin was incised umbilicus. There was an umbilical hernia. 5 mm trochars placed into the pleural cavity at the umbilical hernia site. The abdomen was insufflated. After adequate insufflation the laparoscope was then placed back peritoneal cavity. Next another 5 mm trochars placed in the midline epigastric position and another 5 mm trochars placed in the right lower quadrant. And another 8 mm trochars placed in the left periumbilical area. The colon was visualized. There appeared to be inflammatory changes around the proximal sigmoid colon. Using the Harmonic scissors the white line of Toldt's was divided. The left colon and sigmoid colon were divided. Care was taken to preserve the ureter. Once the colon was fully mobilized. The trochars withdrawn. And then the skin was incised in the low midline position. And then using electrocautery the abdominal wall was divided and then the Bookwalter retractors placed a wound. The Tu wound protector had been placed in the wound. The area of diverticulitis was examined. Then transected with a GI stapler proximally and then using another GI stapler the proximal rectum was transected. The mesentery the colon was divided using LigaSure device. A pursestring device is applied to the proximal colon. And then the anvil for the 25 mm EEA stapler was placed in the colon and the pursestring was secured. The assistant chief engineer placed the EEA stapler patient's anus and then the spike was driven through the rectal staple line. The anvil was then connected to the stapler. And then the stapler was closed and fired. The stapler was then withdrawn and 2 intact tissue rings were removed. Using a high degree of the proximal colon was occluded and then the rigid sigmoidoscope was placed anus and the rectum was insufflated with air. There was no extravasation of air at the staple line. At this point the abdomen was irrigated. The fascia was closed with the clean instruments. The fascia was closed with 0 PDS suture. The hernia was repaired with fascial closure. The skin was closed edwar. Patient went to recovery in stable condition.
[2017-02-02 14:38] LABS: Glucose,Whole Blood 148 mg/dL (75-99)
[2017-02-02] MEDS: HEPARIN SODIUM,PORCINE 5,000 UNIT/ML 1 ML VIAL SQ SCH ×2 (15:52→23:49)
[2017-02-02] MEDS: D5-0.45% NACL WITH KCL 20MEQ/L 1,000 ML IV SCH ×2 (15:52→23:49)
[2017-02-02 16:56] LABS: Glucose,Whole Blood 144 mg/dL (75-99)
--- NOTE | 2017-02-02 18:01 | P.CONS ---
History of Present Illness - Reason for Consult Consult date: 02/02/17 medical management Requesting physician: Rusty Anaya - Chief Complaint Diverticulitis with recurrent bacteremia - History of Present Illness 71-year-old male known 12 Abhay's test has been admitted with recurrent bacteremia and sepsis. Patient was found to have bacteremia. At the time we did consult Dr. Thao assisted in his care. Recommendation at that time was for outpatient IV antibiotics which he completed on January 16. Dr. chuckie trinidad has admitted him for resection in attempt to coordinate the source of the possible recurrent bacteremia. Currently patient says pain is under control unless he moves. He denies any nausea no chills no vomiting. No chest pain or palpitations. Review of Systems Constitutional: Denies chills, Denies fever Eyes: denies blurred vision Ears, nose, mouth and throat: Denies dysphagia, Denies headache, Denies sore throat Cardiovascular: Denies chest pain, Denies palpitations, Denies shortness of breath Respiratory: Denies cough, Denies wheezing Gastrointestinal: Reports abdominal pain, Denies BRBPR, Denies diarrhea, Denies nausea, Denies vomiting Musculoskeletal: Denies myalgias Integumentary: Denies pruritus, Denies rash Neurological: Denies numbness, Denies weakness Psychiatric: Denies anxiety, Denies depression Endocrine: Denies fatigue, Denies weight change Past Medical History Past Medical History: Coronary Artery Disease (CAD), Diabetes Mellitus, Fibromyalgia, Hyperlipidemia, Hypertension, Myocardial Infarction ([place]), Renal Disease Additional Past Medical History / Comment(s): transient global amnesia, HX OF GOUT, FOCAL SEGMENTAL GLOMERULOSCLEROSIS (FSG- NAME OF RENAL DX), DIVERTICULITIS., STAGE 3 A KIDNEY DISEASE -30% LOSS OF KIDNEY FUNCTION. Last Myocardial Infarction Date:: 2010 History of Any Multi-Drug Resistant Organisms: None Reported Past Surgical History: Appendectomy, Cholecystectomy, Heart Catheterization With Stent Past Anesthesia/Blood Transfusion Reactions: No Reported Reaction, Motion Sickness Date of Last Stent Placement:: 2010 Past Psychological History: Anxiety Additional Psychological History / Comment(s): . Smoking Status: Never smoker Past Alcohol Use History: None Reported Past Drug Use History: None Reported - Past Family History Father Family Medical History: Blood Disorder Mother Family Medical History: Cancer Medications and Allergies Home Medications Medication Instructions Recorded Confirmed Type Allopurinol [Zyloprim] 100 mg PO BID 09/25/16 02/02/17 History Aspirin [Adult Low Dose Aspirin EC] 162 mg PO DAILY 09/25/16 02/02/17 History Carvedilol [Coreg] 25 mg PO BID 09/25/16 02/02/17 History DULoxetine HCL [Cymbalta] 60 mg PO DAILY 09/25/16 02/02/17 History Ergocalciferol [Vitamin D2 50,000 unit PO Q14D 09/25/16 02/02/17 History (DRISDOL)] Furosemide [Lasix] 20 mg PO SUTUWETHSA 09/25/16 02/02/17 History LORazepam [Ativan] 0.5 mg PO TID PRN 09/25/16 02/02/17 History Liraglutide [Victoza 2-Seferino] 0.6 mg SQ DAILY 09/25/16 02/02/17 History Lisinopril [Zestril] 40 mg PO DAILY 09/25/16 02/02/17 History Multivitamins, Thera [Multivitamin 1 tab PO DAILY 09/25/16 02/02/17 History (formulary)] Nitroglycerin Sl Tabs [Nitrostat] 0.4 mg SUBLINGUAL Q5M PRN 09/25/16 02/02/17 History Nortriptyline HCl [Pamelor] 50 mg PO HS 09/25/16 02/02/17 History [place]-3/Dha/Epa/Fish Oil [Fish Oil 1 cap PO DAILY 09/25/16 02/02/17 History 1,360 mg Softgel] Rosuvastatin [Crestor] 10 mg PO HS 09/25/16 02/02/17 History Terazosin HCl 2 mg PO BID 09/25/16 02/02/17 History Ubidecarenone [Co Q-10] 100 mg PO DAILY 09/25/16 02/02/17 History Furosemide [Lasix] 40 mg PO MOFR 11/11/16 02/02/17 History Acetaminophen [Tylenol Extra 500 mg PO DAILY PRN 01/31/17 02/02/17 History Strength] traMADol HCl [Ultram] 50 mg PO Q6H PRN 02/02/17 02/02/17 History Allergies Allergy/AdvReac Type Severity Reaction Status Date / Time adhesive tape Allergy Rash/Hives Verified 02/02/17 14:24 Penicillins Allergy Itching Verified 02/02/17 14:24 NSAIDS (Non-Steroidal AdvReac Unknown UNABLE TO Verified 02/02/17 14:24 Anti-Inflamma TAKE DUE TO KIDNEY DISEASE. prednisone AdvReac DEPRESSION Verified 02/02/17 14:24 WITH LARGE DOSES Physical Exam Vitals: Vital Signs Temp Pulse Resp BP Pulse Ox 02/02/17 16:45 93 107/42 02/02/17 16:30 88 99/60 02/02/17 16:15 88 96/61 02/02/17 16:00 88 16 115/66 02/02/17 15:45 87 90/59 02/02/17 15:30 91 99/62 02/02/17 15:15 92 91/58 02/02/17 15:00 98.0 F 89 16 100/62 97 02/02/17 14:05 83 16 129/67 97 02/02/17 13:47 80 16 131/62 98 02/02/17 13:32 82 16 130/67 97 02/02/17 13:17 81 17 131/60 98 02/02/17 13:02 98 F 78 14 139/71 97 02/02/17 10:40 79 98/63 02/02/17 10:30 76 91/63 92 L 02/02/17 10:15 79 16 83/58 93 L 02/02/17 10:10 82 14 90/53 93 L 02/02/17 10:05 76 16 90/53 93 L 02/02/17 10:00 80 14 87/55 92 L 02/02/17 09:55 79 16 68/54 92 L 02/02/17 09:50 80 14 65/47 93 L 02/02/17 09:40 92 16 110/60 94 L 02/02/17 09:30 87 16 112/71 97 02/02/17 09:25 87 16 127/77 97 02/02/17 09:00 97.9 F 93 16 117/76 94 L Intake and Output 02/02/17 02/02/17 02/02/17 06:59 14:59 22:59 Intake Total 3162 Output Total 350 100 Balance 2812 -100 Intake: IV 3162 Output: Urine 300 100 Estimated Blood Loss 50 Other: Voiding Method Indwelling Catheter Weight 86.183 kg Patient Weight 02/03/17 06:59 Weight 86.183 kg - Constitutional General appearance: cooperative, no acute distress - EENT Moist oral mucosa no thrush Eyes: EOMI, PERRLA - Neck Neck: no lymphadenopathy - Respiratory Respiratory: bilateral: CTA, negative: rales, rhonchi, wheezing - Cardiovascular Rhythm: regular Heart sounds: normal: S1, S2 - Gastrointestinal Surgical site [place] no signs of bleeding no redness General gastrointestinal: no absent bowel sounds, no organomegaly, soft, no tenderness - Integumentary Integumentary: no cyanotic, normal, no rash - Neurologic Neurologic: CNII-XII intact - Psychiatric Psychiatric: A&O x's 3, appropriate affect, intact judgment & insight Results Labs: Abnormal Lab Results - Last 24 Hours (Table) 02/02/17 02/02/17 02/02/17 Range/Units 09:20 14:27 16:54 POC Glucose (mg/dL) 148 H 148 H 144 H (75-99) mg/dL Assessment and Plan (1) Diverticulitis Narrative/Plan: Status post resection Currently nothing by mouth Awaiting bowel function return Current Visit: Yes Status: Acute Code(s): K57.92 - DVTRCLI OF INTEST, PART UNSP, W/O PERF OR ABSCESS W/O BLEED SNOMED Code(s): 639506849 (2) Recurrent bacteremia Narrative/Plan: Status post IV antibiotic Completed January 16 Current Visit: Yes Status: Acute Code(s): R78.81 - BACTEREMIA SNOMED Code( s): 9004657 (3) Coronary artery disease Narrative/Plan: Stable no chest pain Current Visit: Yes Status: Acute Code(s): I25.10 - ATHSCL HEART DISEASE OF [place] CORONARY ARTERY W/O ANG PCTRS SNOMED Code(s): 20494274 (4) Chronic kidney disease, stage 3a Narrative/Plan: We'll monitor renal function Baseline is 1.5 Current Visit: No Status: Acute Code(s): N18.3 - CHRONIC KIDNEY DISEASE, STAGE 3 (MODERATE) SNOMED Code(s): 743949588 (5) Essential hypertension Current Visit: No Status: Acute Code(s): I10 - ESSENTIAL (PRIMARY) HYPERTENSION SNOMED Code(s): 05512723 (6) Type 2 diabetes mellitus Narrative/Plan: At the Before meals and at bedtime Sliding scale for insulin Current Visit: No Status: Acute Code(s): E11.9 - TYPE 2 DIABETES MELLITUS WITHOUT COMPLICATIONS SNOMED Code(s): 70021845 (7) Hyperlipidemia Current Visit: No Status: Acute Code(s): E78.5 - HYPERLIPIDEMIA, UNSPECIFIED SNOMED Code(s): 44027002
[2017-02-02 20:10] LABS: Glucose,Whole Blood 172 mg/dL (75-99)
[2017-02-02] MEDS ORDERED: SODIUM CHLORIDE 0.9% 500 ML IV ONE (20:30)
[2017-02-02] MEDS: INSULIN LISPRO (humaLOG) 300 UNIT/3 ML VIAL SQ SCH ×2 (21:47→22:00)
[2017-02-02] MEDS: ALVIMOPAN 12 MG CAPSULE PO SCH (22:00)
[2017-02-02] MEDS: FAMOTIDINE 20 MG/2 ML VIAL IV SCH (22:04)
[2017-02-03] MEDS ORDERED: SODIUM CHLORIDE 0.9% 1,000 ML IV ONE (00:14)
--- NOTE | 2017-02-03 00:31 | P.PN ---
Progress Note - Text Progress Note Date: 02/03/17 patient was seen and examined upon RN request to evaluate patient for hypotension, and decrease urine output Patient is POD#1 post open bowel resection He is doing well, denies any pain, nausea, vomiting, headache, changes in his vision or any focal neurologic deficits denies any SOB or chest pain. O/E Vital signs currently stable , slightly tachycardiac BP has improved now systolic in the mid 100s (earlier was as low as 60-70 however, was still asymptomatic), It seems that cutting back on epidural has helped with blood pressure improving Chest CTA B/L Cardiac nl S1 S2 tachy ABd mild distention, no tenderness, surgical dressing with slight bleeiding post op, BS negative Garcia cath in place , clear yellow urine Ext no swelling or tenderness bilateral legs A/P Hypotension, possibly iatrogenic with epidural pain control cut down on epidural as long as pain tolerated 1 L bolus NS close monitor of vital signs verify placement of garcia cath by flushing the catheter check BMP and CBC
[2017-02-03] MEDS: ACETAMINOPHEN TAB 325 MG TAB PO PRN (01:37)
[2017-02-03] MEDS: D5-0.45% NACL WITH KCL 20MEQ/L 1,000 ML IV SCH ×2 (06:32→16:23)
[2017-02-03 06:46] LABS: Basophils % (A) 0 %; CH 30.2; CHCM 32.7; Eosinophils # (A) 0.1 k/uL (0-0.7); Eosinophils % (A) 1 %; HCT 38.2 % (39.0-53.0); HDW 2.94; Luc # (Auto) 0.12; Luc % (Auto) 2; Lymphocytes # (A) 1.1 k/uL (1.0-4.8); Lymphocytes % (A) 16 %; MCH 30.4 pg (25.0-35.0); MCHC 32.7 g/dL (31.0-37.0); Mean Platelet Volume 7.5; Monocytes # (A) 0.5 k/uL (0-1.0); Monocytes % (A) 8 %; Neutrophils # (A) 4.7 k/uL (1.3-7.7); Neutrophils % (A) 73 %; RBC 4.11 m/uL (4.30-5.90); RDW 13.9 % (11.5-15.5); WBC 6.5 k/uL (3.8-10.6); WBC (Perox) 6.59
[2017-02-03 07:01] LABS: Glucose,Whole Blood 128 mg/dL (75-99)
[2017-02-03 07:02] LABS: Calcium 7.4 mg/dL (8.4-10.2); Potassium 4.9 mmol/L (3.5-5.1)
[2017-02-03 07:26] LABS: HGB 12.5 gm/dL (13.0-17.5)
[2017-02-03] MEDS: HYDROmorphone 0.5 MG/0.5 ML SYRINGE IVP PRN ×5 (08:14→16:17)
[2017-02-03] MEDS: FAMOTIDINE 20 MG/2 ML VIAL IV SCH (09:21)
[2017-02-03] MEDS: HEPARIN SODIUM,PORCINE 5,000 UNIT/ML 1 ML VIAL SQ SCH ×2 (09:21→16:56)
[2017-02-03] MEDS: ALVIMOPAN 12 MG CAPSULE PO SCH ×2 (09:21→20:38)
[2017-02-03] MEDS: INSULIN LISPRO (humaLOG) 300 UNIT/3 ML VIAL SQ SCH ×4 (10:05→20:38)
[2017-02-03] MEDS: LACTATED RINGERS 1,000 ML IV SCH (10:05)
[2017-02-03] MEDS: NALBUPHINE 10 MG/ML AMPUL IV PRN (10:54)
--- NOTE | 2017-02-03 10:56 | P.PN ---
Progress Note - Text 02/03 645am 71-year-old female status post low anterior resection by Dr. nieves. I was called last night by the nursing staff, and reduce the rate from 7-3 cc an hour. was hypotensive pressure running in 60s. This morning is doing much better I increase the rate to 5 mL an hour. He has complains of itching and Nubain has been ordered. No motor or sensory deficit,
--- NOTE | 2017-02-03 11:02 | P.PN ---
Subjective Progress Note Date: 02/03/17 71-year-old male seen and examined at bedside at bedside. Patient had episode yesterday of hypotension postop was given a fluid bolus currently this morning the blood pressure systolic in the 130s. Patient currently is denying any dizziness lightheadedness or chest pain or shortness of breath. Patient is postop laparoscopic low anterior section with repair of umbilical hernia for diverticulitis done on February 02 Objective - Vital Signs Vital signs: Vital Signs Temp 98.9 F 02/03/17 07:53 Pulse 120 H 02/03/17 08:08 Resp 16 02/03/17 07:53 BP 134/77 02/03/17 08:08 Pulse Ox 95 02/03/17 07:53 Intake & Output 02/02/17 02/03/17 02/03/17 18:59 06:59 18:59 Intake Total 3162 3011.0 600 Output Total 750 250 275 Balance 2412 2761.0 325 Weight 86.183 kg Intake: IV 3162 Intake, IV Titration 3011.0 Amount Bupivacaine (Pf) 0.5% 31. 11.0 3 ml Hydromorphone (Pf) 5 mg In Sodium Chloride 0. 9% 218 ml @ Per Protocol EPIDURAL .Q0M PRN Rx#: [id number] D5-0.45% NaCl with KCl 1500 20Meq/l 1,000 ml @ 125 mls/hr IV .Q8H [facility] Rx#: [id number] Sodium Chloride 0.9% 1, 1000 000 ml @ 999 mls/hr IV . Q1H1M [facility] Rx#:[id number] Sodium Chloride 0.9% 500 500 ml @ 500 mls/hr IV .Q1H [facility] Rx#:[id number] Oral 600 Output: Urine 700 250 275 Uretheral (Sy) 275 Estimated Blood Loss 50 Other: Voiding Method Indwelling Catheter Indwelling Catheter Indwelling Catheter - Exam Physical exam 71-year-old male seen and examined sitting up in bed tolerating a clear liquid diet Lungs posterior diminished at the bases otherwise adequate air movement bilaterally currently nasal cannula at 2 L sats documented 95% Heart S1-S2 audible regular denying chest pain when questioning no murmur noted Abdomen abdominal binder in place a few hypoactive bowel sounds noted right lower quadrant. Belching not passing gas rectally reports no nausea vomiting report no stool, indwelling Sy catheter in place. Surgical dressing dry Extremities Venodyne's on to the bilateral lower extremities no edema noted - Labs CBC & Chem 7: 02/03/17 06:34 02/03/17 06:34 Labs: Abnormal Lab Results - Last 24 Hours (Table) 02/02/17 02/02/17 02/02/17 Range/Units 14:27 16:54 19:58 RBC (4.30-5.90) m/uL Hgb (13.0-17.5) gm/dL Hct (39.0-53.0) % Plt Count (150-450) k/uL Sodium (137-145) mmol/L Carbon Dioxide (22-30) mmol/L BUN (9-20) mg/dL Creatinine (0.66-1.25) mg/dL Glucose (74-99) mg/dL POC Glucose (mg/dL) 148 H 144 H 172 H (75-99) mg/dL Calcium (8.4-10.2) mg/dL 02/03/17 02/03/17 02/03/17 Range/Units 06:34 06:34 06:54 RBC 4.11 L (4.30-5.90) m/uL Hgb 12.5 L D (13.0-17.5) gm/dL Hct 38.2 L (39.0-53.0) % Plt Count 105 L (150-450) k/uL Sodium 131 L (137-145) mmol/L Carbon Dioxide 16 L (22-30) mmol/L BUN 25 H (9-20) mg/dL Creatinine 2.47 H (0.66-1.25) mg/dL Glucose 130 H (74-99) mg/dL POC Glucose (mg/dL) 128 H (75-99) mg/dL Calcium 7.4 L (8.4-10.2) mg/dL Assessment and Plan Assessment: Impression Type 2 diabetes Essential hypertension, Known coronary artery disease Chronic kidney disease stage III a Recurrent bacteremia recent admission 01/02/2017 Hyperlipidemia Postop February 02 laparoscopic low anterior resection and repair of umbilical hernia for diverticulitis Reoccurring episodes requiring admission for diverticulitis Postop episode symptomatic hypotension suspect related to pain meds recent laparoscopic cholecystectomy September 2016 Acute renal failure creatinine up to 2.5 baseline 1.5 Plan Epidural per anesthesia for pain control Postop surgical care IV fluid for hydration Resume home meds as appropriate Monitor labs repeat CBC and cmp in the morning Increase activity DVT and GI prophylaxis The above impression and plan of care have been discussed and directed by signing physician. Orly Reyes nurse practitioner acting as scribe for signing physician.
[2017-02-03 12:46] LABS: Glucose,Whole Blood 168 mg/dL (75-99)
[2017-02-03] MEDS: BUPIVACAINE (PF) 0.5% 31.3 ML, HYDROMORPHONE (PF) 5 MG in SODIUM CHLORIDE 0.9% 218 ML EPIDURAL PRN (14:44)
[2017-02-03] MEDS: SODIUM CHLORIDE 0.9% 1,000 ML IV SCH (14:45)
[2017-02-03 16:15] LABS: Glucose,Whole Blood 113 mg/dL (75-99)
[2017-02-03] MEDS ORDERED: HYDROmorphone 0.5 MG/0.5 ML SYRINGE IVP ONE (16:21)
[2017-02-03] MEDS: HYDROmorphone 1 MG/ML 1 ML SYRINGE IVP PRN ×2 (19:11→21:50)
[2017-02-03 20:09] LABS: Glucose,Whole Blood 201 mg/dL (75-99)
[2017-02-04] MEDS: HYDROmorphone 1 MG/ML 1 ML SYRINGE IVP PRN ×4 (00:48→10:09)
[2017-02-04] MEDS: HEPARIN SODIUM,PORCINE 5,000 UNIT/ML 1 ML VIAL SQ SCH ×3 (00:49→16:49)
[2017-02-04 07:14] LABS: Glucose,Whole Blood 146 mg/dL (75-99)
[2017-02-04] MEDS: SODIUM CHLORIDE 0.9% 1,000 ML IV SCH ×2 (07:16→16:49)
[2017-02-04 07:29] LABS: Basophils % (A) 0 %; CH 30.7; Eosinophils # (A) 0.1 k/uL (0-0.7); Eosinophils % (A) 1 %; HCT 41.6 % (39.0-53.0); HDW 2.67; HGB 13.3 gm/dL (13.0-17.5); Luc # (Auto) 0.13; Luc % (Auto) 1; Lymphocytes % (A) 11 %; MCH 29.9 pg (25.0-35.0); MCHC 31.9 g/dL (31.0-37.0); MCV 93.8 fL (80.0-100.0); Mean Platelet Volume 8.6; Monocytes # (A) 0.7 k/uL (0-1.0); Monocytes % (A) 7 %; Neutrophils # (A) 7.3 k/uL (1.3-7.7); Neutrophils % (A) 79 %; RBC 4.44 m/uL (4.30-5.90); RDW 14.9 % (11.5-15.5); WBC 9.2 k/uL (3.8-10.6); WBC (Perox) 9.56
[2017-02-04 07:38] LABS: Calcium 8.2 mg/dL (8.4-10.2); Potassium 4.5 mmol/L (3.5-5.1); Total Bilirubin 0.6 mg/dL (0.2-1.3)
[2017-02-04] MEDS: INSULIN LISPRO (humaLOG) 300 UNIT/3 ML VIAL SQ SCH ×4 (08:23→20:31)
[2017-02-04] MEDS: ALVIMOPAN 12 MG CAPSULE PO SCH ×2 (08:26→20:31)
[2017-02-04] MEDS: FAMOTIDINE 20 MG/2 ML VIAL IV SCH (08:26)
[2017-02-04] MEDS: CARVEDILOL 12.5 MG TAB PO SCH ×2 (09:39→17:30)
[2017-02-04] MEDS: LISINOPRIL 20 MG TAB PO SCH (09:40)
[2017-02-04] MEDS: traMADol 50 MG TAB PO PRN (09:40)
[2017-02-04] MEDS: ACETAMINOPHEN TAB 325 MG TAB PO PRN (09:40)
[2017-02-04] MEDS ORDERED: NALOXONE 0.4 MG/ML 1 ML VIAL IV PRN (10:09)
--- NOTE | 2017-02-04 10:12 | P.PN ---
Subjective Progress Note Date: 02/04/17 Principal diagnosis: Diverticulitis Patient is postop day 3 from low anterior resection. The patient has a history of fibromyalgia and has had ongoing pain since the surgery. He states it is no worse today than yesterday. He does have some tachycardia. No fevers. White blood cell count is normal. Per the patient's she believes his pain is unchanged. Denies nausea or vomiting. No flatus. Objective - Vital Signs Vital signs: Vital Signs Temp 98.8 F 02/04/17 01:40 Pulse 116 H 02/04/17 01:40 Resp 16 02/04/17 01:40 BP 156/77 02/04/17 01:40 Pulse Ox 92 L 02/04/17 01:40 Intake & Output 02/03/17 02/04/17 02/04/17 18:59 06:59 18:59 Intake Total 0151.628 9931 Output Total 1775 4000 Balance -331.500 -580 Intake: IV 800 2000 D5-0.45% NaCl with KCl 550 20Meq/l 1,000 ml @ 125 mls/hr IV .Q8H [facility] Rx#: [id number] Sodium Chloride 0.9% 1, 250 2000 000 ml @ 125 mls/hr IV . Q8H [facility] Rx#:[id number] Intake, IV Titration 43.500 Amount Bupivacaine (Pf) 0.5% 31. 43.500 3 ml Hydromorphone (Pf) 5 mg In Sodium Chloride 0. 9% 218 ml @ Per Protocol EPIDURAL .Q0M PRN Rx#: [id number] Oral 600 1420 Output: Urine 1775 4000 Uretheral (Sy) 1775 1100 Other: Voiding Method Indwelling Catheter Indwelling Catheter - Exam Abdomen: Soft, nondistended, mild tenderness, incision clean and dry - Labs CBC & Chem 7: 02/04/17 06:41 02/04/17 06:41 Labs: Abnormal Lab Results - Last 24 Hours (Table) 02/03/17 02/03/17 02/03/17 Range/Units 12:42 16:03 20:00 Plt Count (150-450) k/uL Chloride (98-107) mmol/L Carbon Dioxide (22-30) mmol/L Creatinine (0.66-1.25) mg/dL Glucose (74-99) mg/dL POC Glucose (mg/dL) 168 H 113 H 201 H (75-99) mg/dL Calcium (8.4-10.2) mg/dL Total Protein (6.3-8.2) g/dL Albumin (3.5-5.0) g/dL 02/04/17 02/04/17 02/04/17 Range/Units 06:41 06:41 07:10 Plt Count 119 L (150-450) k/uL Chloride 111 H (98-107) mmol/L Carbon Dioxide 21 L (22-30) mmol/L Creatinine 1.50 H (0.66-1.25) mg/dL Glucose 158 H (74-99) mg/dL POC Glucose (mg/dL) 146 H (75-99) mg/dL Calcium 8.2 L (8.4-10.2) mg/dL Total Protein 6.0 L (6.3-8.2) g/dL Albumin 3.2 L (3.5-5.0) g/dL Assessment and Plan (1) Diverticulitis Narrative/Plan: Continue to monitor the patient's tachycardia closely. Will switch to a Dilaudid AIR MOTOR REPAIRER. Continue Sy one more day. Increase activity levels. Add Ultram and Tylenol for pain control. Current Visit: Yes Status: Acute Code(s): K57.92 - DVTRCLI OF INTEST, PART UNSP, W/O PERF OR ABSCESS W/O BLEED SNOMED Code(s): 125740994
--- NOTE | 2017-02-04 11:02 | P.PN ---
Subjective Progress Note Date: 02/04/17 Principal diagnosis: Diverticulitis Patient continues to have severe 10 out of 10 abdominal pain, the pain has not changed much since yesterday. He denied having any nausea or vomiting, still not passing any gas. No fevers or chills. No chest pain or shortness of breath. Objective - Vital Signs Vital signs: Vital Signs Temp 98.8 F 02/04/17 01:40 Pulse 116 H 02/04/17 01:40 Resp 16 02/04/17 01:40 BP 156/77 02/04/17 01:40 Pulse Ox 92 L 02/04/17 01:40 Intake & Output 02/03/17 02/04/17 02/04/17 18:59 06:59 18:59 Intake Total 2566.976 3537 Output Total 1775 4000 Balance -331.500 -580 Intake: IV 800 2000 D5-0.45% NaCl with KCl 550 20Meq/l 1,000 ml @ 125 mls/hr IV .Q8H [facility] Rx#: [id number] Sodium Chloride 0.9% 1, 250 2000 000 ml @ 125 mls/hr IV . Q8H [facility] Rx#:[id number] Intake, IV Titration 43.500 Amount Bupivacaine (Pf) 0.5% 31. 43.500 3 ml Hydromorphone (Pf) 5 mg In Sodium Chloride 0. 9% 218 ml @ Per Protocol EPIDURAL .Q0M PRN Rx#: [id number] Oral 600 1420 Output: Urine 1775 4000 Uretheral (Sy) 1775 1100 Other: Voiding Method Indwelling Catheter Indwelling Catheter - Exam Constitutional: No acute distress, conversant, pleasant Eyes:Anicteric sclerae, moist conjunctiva, no lid-lag, PERRLA, ENMT: Oropharynx clear, no erythema, exudates Neck: Supple, FROM, no masses, or JVD, No carotid bruits, No thyromegaly Lungs: Clear to auscultation, Clear to percussion, Normal respiratory effort, no accessory muscle use Cardiovascular: regular but tachycardic, No murmurs, gallops, or rubs, No peripheral edema Abdominal: Surgical scar present, abdominal binder applied. Soft, very tender to touch, no palpable mass Skin: Normal temperature, tone, texture, turgor, no induration, No subcutaneous nodules, No rash, lesions, No ulcers Extremities: No digital cyanosis, No clubbing, Pedal pulses intact and symmetrical, Radial pulses intact and symmetrical, No calf tenderness Psychiatric: Alert and oriented to person, place and time, appropriate affect, intact judgement Neuro: Muscles Strength 5/5 in all 4 extremities, Sensation to light touch grossly present throughout, Cranial nerves II-XII grossly intact, no focal sensory deficits - Labs CBC & Chem 7: 02/04/17 06:41 02/04/17 06:41 Labs: Abnormal Lab Results - Last 24 Hours (Table) 02/03/17 02/03/17 02/03/17 Range/Units 12:42 16:03 20:00 Plt Count (150-450) k/uL Chloride (98-107) mmol/L Carbon Dioxide (22-30) mmol/L Creatinine (0.66-1.25) mg/dL Glucose (74-99) mg/dL POC Glucose (mg/dL) 168 H 113 H 201 H (75-99) mg/dL Calcium (8.4-10.2) mg/dL Total Protein (6.3-8.2) g/dL Albumin (3.5-5.0) g/dL 02/04/17 02/04/17 02/04/17 Range/Units 06:41 06:41 07:10 Plt Count 119 L (150-450) k/uL Chloride 111 H (98-107) mmol/L Carbon Dioxide 21 L (22-30) mmol/L Creatinine 1.50 H (0.66-1.25) mg/dL Glucose 158 H (74-99) mg/dL POC Glucose (mg/dL) 146 H (75-99) mg/dL Calcium 8.2 L (8.4-10.2) mg/dL Total Protein 6.0 L (6.3-8.2) g/dL Albumin 3.2 L (3.5-5.0) g/dL Assessment and Plan Plan: (1) Acute diverticulitis s/p laparoscopic low anterior resection with repair of umbilical hernia: Management per surgery We'll start BOOKMAKER'S CLERK Dilaudid today as pain is still not controlled Currently on clears--- tolerated Awaiting bowel function return (2) Sinus tachycardia, coronary artery disease No chest pain Likely secondary to pain Improved pain control with Dilaudid BOOKMAKER'S CLERK and follow-up on the heart rate. (3) Chronic kidney disease, stage 3a Monitor renal function Baseline is 1.5 Stable (4) Essential hypertension BP was elevated earlier Continue BP meds (5) Type 2 diabetes mellitus Sliding scale for insulin Check blood sugars every before meals and at bedtime (6) DVT prophylaxis: Subcu heparin
[2017-02-04] MEDS: HYDROmorphone PCA 5 MG/25 ML SYRINGE IV PRN ×2 (11:09→20:17)
[2017-02-04 11:59] LABS: Glucose,Whole Blood 156 mg/dL (75-99)
[2017-02-04 17:21] LABS: Glucose,Whole Blood 151 mg/dL (75-99)
[2017-02-04 20:32] LABS: Glucose,Whole Blood 108 mg/dL (75-99)
[2017-02-05] MEDS: NALBUPHINE 10 MG/ML AMPUL IV PRN (00:06)
[2017-02-05] MEDS: HEPARIN SODIUM,PORCINE 5,000 UNIT/ML 1 ML VIAL SQ SCH ×3 (00:06→16:31)
[2017-02-05] MEDS: HYDROmorphone PCA 5 MG/25 ML SYRINGE IV PRN ×3 (01:30→20:04)
[2017-02-05] MEDS: ACETAMINOPHEN TAB 325 MG TAB PO PRN ×2 (06:06→20:46)
[2017-02-05 07:01] LABS: Glucose,Whole Blood 136 mg/dL (75-99)
[2017-02-05] MEDS: SODIUM CHLORIDE 0.9% 1,000 ML IV SCH ×3 (07:25→12:58)
[2017-02-05 07:36] LABS: Basophils % (A) 0 %; CHCM 33.3; Eosinophils # (A) 0.2 k/uL (0-0.7); Eosinophils % (A) 3 %; HCT 39.9 % (39.0-53.0); HDW 2.92; HGB 12.9 gm/dL (13.0-17.5); Luc # (Auto) 0.12; Luc % (Auto) 2; Lymphocytes # (A) 1.1 k/uL (1.0-4.8); Lymphocytes % (A) 16 %; MCH 30.1 pg (25.0-35.0); MCHC 32.2 g/dL (31.0-37.0); MCV 93.5 fL (80.0-100.0); Monocytes # (A) 0.6 k/uL (0-1.0); Monocytes % (A) 8 %; Neutrophils # (A) 4.7 k/uL (1.3-7.7); Neutrophils % (A) 70 %; RBC 4.26 m/uL (4.30-5.90); WBC 6.7 k/uL (3.8-10.6)
[2017-02-05 07:46] LABS: ALT 27 U/L (21-72); AST 22 U/L (17-59); Alkaline Phosphatase 69 U/L (38-126); Anion Gap 10 mmol/L; Blood Urea Nitrogen 9 mg/dL (9-20); Calcium 8.5 mg/dL (8.4-10.2); Carbon Dioxide 22 mmol/L (22-30); Chloride 110 mmol/L (98-107); Glucose 145 mg/dL (74-99); Non-African American GFR(MDRD) >60 (>60 ml/min/1.73 sqM); Potassium 4.3 mmol/L (3.5-5.1); Sodium 142 mmol/L (137-145); Total Bilirubin 0.6 mg/dL (0.2-1.3); Total Protein 6.2 g/dL (6.3-8.2)
[2017-02-05] MEDS: CARVEDILOL 12.5 MG TAB PO SCH ×2 (08:01→16:31)
[2017-02-05] MEDS: INSULIN LISPRO (humaLOG) 300 UNIT/3 ML VIAL SQ SCH ×4 (08:03→20:41)
[2017-02-05] MEDS: LISINOPRIL 20 MG TAB PO SCH (09:30)
[2017-02-05] MEDS: ALVIMOPAN 12 MG CAPSULE PO SCH ×2 (09:30→20:41)
[2017-02-05] MEDS: FAMOTIDINE 20 MG/2 ML VIAL IV SCH (09:30)
--- NOTE | 2017-02-05 09:37 | P.PN ---
Subjective Progress Note Date: 02/05/17 Principal diagnosis: Diverticulitis Patient's pain is somewhat improved today. He is afebrile. His white blood cell count is normal. No flatus. Tolerating small amounts of clears. Objective - Vital Signs Vital signs: Vital Signs Temp 98.1 F 02/05/17 07:30 Pulse 94 02/05/17 07:30 Resp 16 02/05/17 07:30 BP 178/82 02/05/17 07:30 Pulse Ox 95 02/05/17 07:30 Intake & Output 02/04/17 02/05/17 02/05/17 19:59 06:59 18:59 Output Total Balance Weight Output: Urine Other: Voiding Method - Exam Abdomen: Soft, nondistended, mild tenderness, incision clean and dry - Labs CBC & Chem 7: 02/05/17 07:06 02/05/17 07:06 Labs: Abnormal Lab Results - Last 24 Hours (Table) 02/04/17 02/04/17 02/04/17 Range/Units 11:34 17:00 20:29 RBC (4.30-5.90) m/uL Hgb (13.0-17.5) gm/dL Plt Count (150-450) k/uL Chloride (98-107) mmol/L Glucose (74-99) mg/dL POC Glucose (mg/dL) 156 H 151 H 108 H (75-99) mg/dL Total Protein (6.3-8.2) g/dL Albumin (3.5-5.0) g/dL 02/05/17 02/05/17 02/05/17 Range/Units 06:44 07:06 07:06 RBC 4.26 L (4.30-5.90) m/uL Hgb 12.9 L (13.0-17.5) gm/dL Plt Count 144 L (150-450) k/uL Chloride 110 H (98-107) mmol/L Glucose 145 H (74-99) mg/dL POC Glucose (mg/dL) 136 H (75-99) mg/dL Total Protein 6.2 L (6.3-8.2) g/dL Albumin 3.2 L (3.5-5.0) g/dL Assessment and Plan (1) Diverticulitis Narrative/Plan: Continue clear liquid diet. Decrease IV fluid rate. Remove Sy catheter. Ambulate. Current Visit: Yes Status: Acute Code(s): K57.92 - DVTRCLI OF INTEST, PART UNSP, W/O PERF OR ABSCESS W/O BLEED SNOMED Code(s): 460468302
[2017-02-05] MEDS ORDERED: NITROGLYCERIN SL TABS 0.4 MG TAB SUBLINGUAL PRN (12:09)
[2017-02-05 12:13] LABS: Glucose,Whole Blood 133 mg/dL (75-99)
--- NOTE | 2017-02-05 12:29 | P.PN ---
Subjective Progress Note Date: 02/05/17 Principal diagnosis: Diverticulitis Patient is feeling better currently, his pain is well-controlled now with the LEGAL SERVICES PROFESSIONAL. He is tolerating clear liquids, no nausea or vomiting. No fevers or chills. Objective - Vital Signs Vital signs: Vital Signs Temp 98.1 F 02/05/17 07:30 Pulse 94 02/05/17 07:30 Resp 16 02/05/17 08:00 BP 178/82 02/05/17 07:30 Pulse Ox 95 02/05/17 11:31 Intake & Output 02/04/17 02/05/17 02/05/17 19:59 06:59 18:59 Output Total Balance Weight Output: Urine Other: Voiding Method Indwelling Catheter - Exam Constitutional: No acute distress, conversant, pleasant Eyes:Anicteric sclerae, moist conjunctiva, no lid-lag, PERRLA, ENMT: Oropharynx clear, no erythema, exudates Neck: Supple, FROM, no masses, or JVD, No carotid bruits, No thyromegaly Lungs: Clear to auscultation, Clear to percussion, Normal respiratory effort, no accessory muscle use Cardiovascular: regular rate and rhythm, No murmurs, gallops, or rubs, No peripheral edema Abdominal: Surgical scar present, abdominal binder applied. Soft, very tender to touch, no palpable mass Skin: Normal temperature, tone, texture, turgor, no induration, No subcutaneous nodules, No rash, lesions, No ulcers Extremities: No digital cyanosis, No clubbing, Pedal pulses intact and symmetrical, Radial pulses intact and symmetrical, No calf tenderness Psychiatric: Alert and oriented to person, place and time, appropriate affect, intact judgement Neuro: Muscles Strength 5/5 in all 4 extremities, Sensation to light touch grossly present throughout, Cranial nerves II-XII grossly intact, no focal sensory deficits - Labs CBC & Chem 7: 02/05/17 07:06 02/05/17 07:06 Labs: Abnormal Lab Results - Last 24 Hours (Table) 02/04/17 02/04/17 02/05/17 Range/Units 17:00 20:29 06:44 RBC (4.30-5.90) m/uL Hgb (13.0-17.5) gm/dL Plt Count (150-450) k/uL Chloride (98-107) mmol/L Glucose (74-99) mg/dL POC Glucose (mg/dL) 151 H 108 H 136 H (75-99) mg/dL Total Protein (6.3-8.2) g/dL Albumin (3.5-5.0) g/dL 02/05/17 02/05/17 Range/Units 07:06 07:06 RBC 4.26 L (4.30-5.90) m/uL Hgb 12.9 L (13.0-17.5) gm/dL Plt Count 144 L (150-450) k/uL Chloride 110 H (98-107) mmol/L Glucose 145 H (74-99) mg/dL POC Glucose (mg/dL) (75-99) mg/dL Total Protein 6.2 L (6.3-8.2) g/dL Albumin 3.2 L (3.5-5.0) g/dL Assessment and Plan Plan: (1) Acute diverticulitis s/p laparoscopic low anterior resection with repair of umbilical hernia: Management per surgery Contine LEGAL SERVICES PROFESSIONAL Dilaudid, pain is currently controlled Restart medications for fibromyalgia including duloxetine and nortriptylin. Currently on clears--- tolerated Awaiting bowel function return (2) Coronary artery disease No evidence of acute coronary event at this point. Holding baby aspirin as patient just had surgery (3) Acute renal failure on chronic kidney disease, stage 3a Renal function back to baseline with hydration Avoid nephrotoxic medications (4) Essential hypertension Stable Continue BP meds (5) Type 2 diabetes mellitus Sliding scale for insulin Check blood sugars every before meals and at bedtime (6) Fibromyalgia: Resume meds as above, see #1 (7) Gout Resume allopurinol. (8) DVT prophylaxis: Subcu heparin
[2017-02-05] MEDS: DULoxetine HCL 60 MG CAPSULE.DR PO SCH (12:58)
[2017-02-05] MEDS: ALLOPURINOL 100 MG TAB PO SCH ×2 (12:59→20:41)
[2017-02-05] MEDS: TERAZOSIN 1 MG CAP PO SCH ×2 (13:54→20:42)
[2017-02-05 17:01] LABS: Glucose,Whole Blood 150 mg/dL (75-99)
[2017-02-05 20:41] LABS: Glucose,Whole Blood 176 mg/dL (75-99)
[2017-02-05] MEDS: ATORVASTATIN 20 MG TAB PO SCH (20:41)
[2017-02-05] MEDS: NORTRIPTYLINE 25 MG CAP PO SCH (20:41)
[2017-02-06] MEDS: HEPARIN SODIUM,PORCINE 5,000 UNIT/ML 1 ML VIAL SQ SCH ×4 (00:22→23:33)
[2017-02-06 03:22] LABS: Glucose,Whole Blood 125 mg/dL (75-99)
[2017-02-06 06:29] LABS: Basophils % (A) 0 %; CH 30.7; Eosinophils # (A) 0.2 k/uL (0-0.7); Eosinophils % (A) 4 %; HCT 35.8 % (39.0-53.0); HDW 2.99; HGB 11.9 gm/dL (13.0-17.5); Luc # (Auto) 0.17; Luc % (Auto) 3; Lymphocytes # (A) 1.2 k/uL (1.0-4.8); Lymphocytes % (A) 24 %; MCH 30.1 pg (25.0-35.0); MCHC 33.2 g/dL (31.0-37.0); MCV 90.7 fL (80.0-100.0); Mean Platelet Volume 7.4; Monocytes # (A) 0.5 k/uL (0-1.0); Monocytes % (A) 9 %; Neutrophils % (A) 58 %; RBC 3.95 m/uL (4.30-5.90); RDW 13.7 % (11.5-15.5); WBC 5.1 k/uL (3.8-10.6)
[2017-02-06 06:42] LABS: ALT 31 U/L (21-72); AST 19 U/L (17-59); Alkaline Phosphatase 61 U/L (38-126); Anion Gap 8 mmol/L; Blood Urea Nitrogen 6 mg/dL (9-20); Calcium 8.4 mg/dL (8.4-10.2); Carbon Dioxide 23 mmol/L (22-30); Chloride 111 mmol/L (98-107); Glucose 114 mg/dL (74-99); Non-African American GFR(MDRD) >60 (>60 ml/min/1.73 sqM); Potassium 3.9 mmol/L (3.5-5.1); Sodium 142 mmol/L (137-145); Total Bilirubin 0.7 mg/dL (0.2-1.3); Total Protein 5.5 g/dL (6.3-8.2)
[2017-02-06 07:05] LABS: Glucose,Whole Blood 100 mg/dL (75-99)
[2017-02-06] MEDS: LORazepam 0.5 MG TAB PO PRN ×2 (07:22→21:29)
[2017-02-06] MEDS: CARVEDILOL 12.5 MG TAB PO SCH ×2 (07:22→17:45)
[2017-02-06] MEDS: INSULIN LISPRO (humaLOG) 300 UNIT/3 ML VIAL SQ SCH ×4 (07:22→21:21)
[2017-02-06] MEDS: ALVIMOPAN 12 MG CAPSULE PO SCH ×2 (07:23→21:23)
[2017-02-06] MEDS: DULoxetine HCL 60 MG CAPSULE.DR PO SCH (07:23)
[2017-02-06] MEDS: ALLOPURINOL 100 MG TAB PO SCH ×2 (07:23→21:22)
[2017-02-06] MEDS: TERAZOSIN 1 MG CAP PO SCH ×2 (07:24→21:23)
[2017-02-06] MEDS: LISINOPRIL 20 MG TAB PO SCH (07:24)
[2017-02-06] MEDS: FAMOTIDINE 20 MG/2 ML VIAL IV SCH (07:24)
[2017-02-06] MEDS: traMADol 50 MG TAB PO PRN ×3 (07:37→17:58)
[2017-02-06] MEDS: SODIUM CHLORIDE 0.9% 1,000 ML IV SCH ×2 (07:59→12:57)
[2017-02-06] MEDS ORDERED: HYDROcodone/APAP 7.5-325MG 1 EACH TAB PO PRN (08:37)
--- NOTE | 2017-02-06 08:47 | P.PN ---
Subjective Progress Note Date: 02/06/17 71-year-old male seen and examined at bedside sitting up on the edge the bed taking a diet patient is denying any nausea vomiting no fever chills. Patient is stating "MEASUREMENT AND SENSING TECHNICIAN pain medication makes me feel groggy and anxious feeling" patient states he has the akers 4 times yesterday. States passing gas rectally no stool postop laparoscopic low anterior section with repair of umbilical hernia for diverticulitis done on February 02 Objective - Vital Signs Vital signs: Vital Signs Temp 98.5 F 02/06/17 07:00 Pulse 89 02/06/17 07:59 Resp 16 02/06/17 07:59 BP 149/75 02/06/17 02:17 Pulse Ox 97 02/06/17 07:00 Intake & Output 02/05/17 02/06/17 02/06/17 18:59 06:59 18:59 Intake Total 3120 Output Total 2400 Balance -2400 3120 Weight 86.183 kg 86.183 kg Intake: Intake, IV Titration 1200 Amount Sodium Chloride 0.9% 1, 1200 000 ml @ 75 mls/hr IV . [id number] [facility] Rx#:[id number] Oral 1920 Output: Urine 2400 Uretheral (Sy) 1500 Other: Voiding Method Indwelling Catheter Toilet Urinal # Voids 3 - Exam GENERAL APPEARANCE: Pleasant 71-year-old sitting up on the edge of the bed taking a clear liquid diet alert oriented in no acute distress. VITAL SIGNS: Reviewed HEENT: Head is normocephalic and atraumatic. Pupils are equal and reactive. The nares are patent. Oropharynx is clear without lesions. NECK: Supple without lymphadenopathy. Traches midline. HEART: S1, S2. Regular rate and rhythm. Denying chest pain no murmur noted LUNGS: No crackles or wheezes are heard. On room air with sats 97% ABDOMEN: Abdominal binder in place dressing to surgical site dry surgical tenderness appropriate not distended a few hypoactive bowel tones urinating no difficulty no nausea no vomiting EXTREMITIES: Normal skin color and turgor. No cyanosis, rash, ulceration, clubbing or edema. Radial pedal pulses are 2/4 bilaterally. NEUROLOGICAL: No focal deficits. Strength and sensation are grossly intact. - Labs CBC & Chem 7: 02/06/17 06:11 02/06/17 06:11 Labs: Abnormal Lab Results - Last 24 Hours (Table) 02/05/17 02/05/17 02/05/17 Range/Units 12:03 16:36 20:38 RBC (4.30-5.90) m/uL Hgb (13.0-17.5) gm/dL Hct (39.0-53.0) % Chloride (98-107) mmol/L BUN (9-20) mg/dL Glucose (74-99) mg/dL POC Glucose (mg/dL) 133 H 150 H 176 H (75-99) mg/dL Total Protein (6.3-8.2) g/dL Albumin (3.5-5.0) g/dL 02/06/17 02/06/17 02/06/17 Range/Units 03:18 06:11 06:11 RBC 3.95 L (4.30-5.90) m/uL Hgb 11.9 L (13.0-17.5) gm/dL Hct 35.8 L (39.0-53.0) % Chloride 111 H (98-107) mmol/L BUN 6 L (9-20) mg/dL Glucose 114 H (74-99) mg/dL POC Glucose (mg/dL) 125 H (75-99) mg/dL Total Protein 5.5 L (6.3-8.2) g/dL Albumin 2.8 L (3.5-5.0) g/dL 02/06/17 Range/Units 06:51 RBC (4.30-5.90) m/uL Hgb (13.0-17.5) gm/dL Hct (39.0-53.0) % Chloride (98-107) mmol/L BUN (9-20) mg/dL Glucose (74-99) mg/dL POC Glucose (mg/dL) 100 H (75-99) mg/dL Total Protein (6.3-8.2) g/dL Albumin (3.5-5.0) g/dL Assessment and Plan Assessment: Impression Type 2 diabetes Essential hypertension, Known coronary artery disease Chronic kidney disease stage III a Recurrent bacteremia recent admission 01/02/2017 Hyperlipidemia Postop February 02 laparoscopic low anterior resection and repair of umbilical hernia for diverticulitis Reoccurring episodes requiring admission for diverticulitis Postop episode symptomatic hypotension suspect related to pain meds recent laparoscopic cholecystectomy September 2016 Acute renal failure creatinine up to 2.5 baseline 1.5 History of gout fibromyalgia Anxiety disorder nonspecified Plan Stop the MEASUREMENT AND SENSING TECHNICIAN dilaudid Postop surgical care IV fluid for hydration Resume home meds as appropriate Monitor labs repeat CBC and cmp in the morning Increase activity DVT and GI prophylaxis [place] for pain Ativan home dose as needed when necessary anxiety The above impression and plan of care have been discussed and directed by signing physician. Orly Reyes nurse practitioner acting as scribe for signing physician.
[2017-02-06 11:43] LABS: Glucose,Whole Blood 164 mg/dL (75-99)
--- NOTE | 2017-02-06 12:29 | P.PN ---
Subjective Principal diagnosis: Diverticulitis Patient is feeling better currently, his pain is well-controlled and he is not pushing the TRANSFUSION NURSE button. Started passing gas and had a small bm this morning. Had a bad dream last night that he thought sec to the dilaudid. He is tolerating clear liquids, no nausea or vomiting. No fevers or chills. Objective - Vital Signs Vital signs: Vital Signs Temp 98.5 F 02/06/17 07:00 Pulse 89 02/06/17 07:59 Resp 16 02/06/17 07:59 BP 149/75 02/06/17 02:17 Pulse Ox 97 02/06/17 07:00 Intake & Output 02/05/17 02/06/17 02/06/17 18:59 06:59 18:59 Intake Total 3120 Output Total 2400 Balance -2400 3120 Weight 86.183 kg 86.183 kg Intake: Intake, IV Titration 1200 Amount Sodium Chloride 0.9% 1, 1200 000 ml @ 75 mls/hr IV . [id number] [facility] Rx#:[id number] Oral 1920 Output: Urine 2400 Uretheral (Sy) 1500 Other: Voiding Method Indwelling Catheter Toilet Urinal # Voids 3 - Labs CBC & Chem 7: 02/06/17 06:11 02/06/17 06:11 Labs: Abnormal Lab Results - Last 24 Hours (Table) 02/05/17 02/05/17 02/06/17 Range/Units 16:36 20:38 03:18 RBC (4.30-5.90) m/uL Hgb (13.0-17.5) gm/dL Hct (39.0-53.0) % Chloride (98-107) mmol/L BUN (9-20) mg/dL Glucose (74-99) mg/dL POC Glucose (mg/dL) 150 H 176 H 125 H (75-99) mg/dL Total Protein (6.3-8.2) g/dL Albumin (3.5-5.0) g/dL 02/06/17 02/06/17 02/06/17 Range/Units 06:11 06:11 06:51 RBC 3.95 L (4.30-5.90) m/uL Hgb 11.9 L (13.0-17.5) gm/dL Hct 35.8 L (39.0-53.0) % Chloride 111 H (98-107) mmol/L BUN 6 L (9-20) mg/dL Glucose 114 H (74-99) mg/dL POC Glucose (mg/dL) 100 H (75-99) mg/dL Total Protein 5.5 L (6.3-8.2) g/dL Albumin 2.8 L (3.5-5.0) g/dL 02/06/17 Range/Units 11:31 RBC (4.30-5.90) m/uL Hgb (13.0-17.5) gm/dL Hct (39.0-53.0) % Chloride (98-107) mmol/L BUN (9-20) mg/dL Glucose (74-99) mg/dL POC Glucose (mg/dL) 164 H (75-99) mg/dL Total Protein (6.3-8.2) g/dL Albumin (3.5-5.0) g/dL Assessment and Plan Plan: (1) Acute diverticulitis s/p laparoscopic low anterior resection with repair of umbilical hernia: POD#2 Management per surgery Discontine TRANSFUSION NURSE Dilaudid, pain is currently controlled Continue duloxetine and nortriptylin. Currently on clears--- tolerated (2) Coronary artery disease No evidence of acute coronary event at this point. Holding baby aspirin as patient just had surgery (3) Acute renal failure on chronic kidney disease, stage 3a Renal function back to baseline with hydration Avoid nephrotoxic medications (4) Essential hypertension Stable Continue BP meds (5) Type 2 diabetes mellitus Sliding scale for insulin Check blood sugars every before meals and at bedtime (6) Fibromyalgia: Resume meds as above, see #1 (7) Gout Resume allopurinol. (8) DVT prophylaxis: Subcu heparin
[2017-02-06] MEDS: FAMOTIDINE 20 MG TAB PO SCH ×2 (13:00→21:23)
[2017-02-06] MEDS: MULTIVITAMINS, THERA 1 EACH TAB PO SCH (13:00)
[2017-02-06 16:55] LABS: Glucose,Whole Blood 136 mg/dL (75-99)
[2017-02-06 20:15] LABS: Glucose,Whole Blood 120 mg/dL (75-99)
[2017-02-06] MEDS: ATORVASTATIN 20 MG TAB PO SCH (21:22)
[2017-02-06] MEDS: NORTRIPTYLINE 25 MG CAP PO SCH (21:23)
[2017-02-07] MEDS: SODIUM CHLORIDE 0.9% 1,000 ML IV SCH (04:57)
[2017-02-07] MEDS: INSULIN LISPRO (humaLOG) 300 UNIT/3 ML VIAL SQ SCH ×2 (07:04→12:56)
[2017-02-07 07:12] LABS: Glucose,Whole Blood 90 mg/dL (75-99)
[2017-02-07 07:19] LABS: Basophils % (A) 1 %; Eosinophils # (A) 0.2 k/uL (0-0.7); Eosinophils % (A) 5 %; HCT 36.5 % (39.0-53.0); HDW 3.03; HGB 11.9 gm/dL (13.0-17.5); Luc # (Auto) 0.14; Luc % (Auto) 4; Lymphocytes # (A) 1.3 k/uL (1.0-4.8); Lymphocytes % (A) 34 %; MCH 29.9 pg (25.0-35.0); MCHC 32.6 g/dL (31.0-37.0); MCV 91.6 fL (80.0-100.0); Mean Platelet Volume 7.5; Monocytes # (A) 0.4 k/uL (0-1.0); Monocytes % (A) 9 %; Neutrophils # (A) 1.9 k/uL (1.3-7.7); Neutrophils % (A) 48 %; RBC 3.99 m/uL (4.30-5.90); RDW 13.9 % (11.5-15.5); WBC 3.9 k/uL (3.8-10.6); WBC (Perox) 3.97
[2017-02-07 07:36] LABS: ALT 28 U/L (21-72); AST 19 U/L (17-59); Alkaline Phosphatase 61 U/L (38-126); Anion Gap 8 mmol/L; Blood Urea Nitrogen 5 mg/dL (9-20); Calcium 8.8 mg/dL (8.4-10.2); Carbon Dioxide 25 mmol/L (22-30); Chloride 109 mmol/L (98-107); Glucose 105 mg/dL (74-99); Non-African American GFR(MDRD) >60 (>60 ml/min/1.73 sqM); Potassium 3.5 mmol/L (3.5-5.1); Sodium 142 mmol/L (137-145); Total Bilirubin 0.7 mg/dL (0.2-1.3); Total Protein 5.8 g/dL (6.3-8.2)
[2017-02-07] MEDS: MULTIVITAMINS, THERA 1 EACH TAB PO SCH (08:31)
[2017-02-07] MEDS: DULoxetine HCL 60 MG CAPSULE.DR PO SCH (08:31)
[2017-02-07] MEDS: ALVIMOPAN 12 MG CAPSULE PO SCH (08:32)
[2017-02-07] MEDS: LISINOPRIL 20 MG TAB PO SCH (08:32)
[2017-02-07] MEDS: TERAZOSIN 1 MG CAP PO SCH (08:32)
[2017-02-07] MEDS: FAMOTIDINE 20 MG TAB PO SCH (08:32)
[2017-02-07] MEDS: ALLOPURINOL 100 MG TAB PO SCH (08:32)
[2017-02-07] MEDS: CARVEDILOL 12.5 MG TAB PO SCH (08:33)
[2017-02-07] MEDS: HEPARIN SODIUM,PORCINE 5,000 UNIT/ML 1 ML VIAL SQ SCH (08:37)
[2017-02-07 09:50] VITALS: BP 146/71; PULSE 78; RESP 17; TEMP 98.2
[2017-02-07 12:23] LABS: Glucose,Whole Blood 155 mg/dL (75-99)
--- NOTE | 2017-02-07 13:15 | P.DS ---
Providers Date of admission: 02/02/17 08:16 Expected date of discharge: 02/07/17 Attending physician: Rusty Nieves Consults: 02/02/17 15:46 Consult Physician Routine Consulting Provider: Bren Cameron Consult Reason/Comments: Medical Management Do you want consulting provider notified?: Already Contacted Primary care physician: Arnaud Gonsalez [facility] Course: 71-year-old gentleman who presented to undergo an elective laparoscopic assisted low anterior resection for recurrent numerous episodes with hospital admissions for diverticulitis on February 02 the patient did undergo repair of an umbilical hernia, laparoscopic low anterior resection for diverticulitis there were no acute postop events. day of discharge patient was able to ambulate independently in the hallway and was tolerating full liquid diet. Had passed gas small stool urinating no difficulty surgical sites no evidence of redness edwar in place to the mid abdominal surgical incision February 07 the white count was 3.9 hemoglobin 11.9 electrolytes within normal limits AST and ALT were not elevated Patient was felt to be hemodynamically stable and appropriate proceed with discharge to home Impression Type 2 diabetes hemoglobin A1c 6 Essential hypertension, Known coronary artery disease Chronic kidney disease stage III a Recurrent bacteremia recent admission 01/02/2017 Hyperlipidemia Postop February 02 laparoscopic low anterior resection and repair of umbilical hernia for diverticulitis Reoccurring episodes requiring admission for diverticulitis Postop episode symptomatic hypotension suspect related to pain meds resolved recent laparoscopic cholecystectomy September 2016 Acute renal failure creatinine up to 2.5 baseline 1.5 History of gout fibromyalgia Anxiety disorder nonspecified The above impression and plan of care have been discussed and directed by signing physician. Orly Reyes nurse practitioner acting as scribe for signing physician. Plan - Discharge Summary Discharge Rx Participant: Yes New Discharge Prescriptions: New HYDROcodone/APAP 7.5-325MG [[place] 7.5-325] 1 each PO Q4H PRN #30 tab PRN Reason: Pain MOD TO SEVERE Continue Ubidecarenone [Co Q-10] 100 mg PO DAILY Multivitamins, Thera [Multivitamin (formulary)] 1 tab PO DAILY Aspirin [Adult Low Dose Aspirin EC] 162 mg PO DAILY Nitroglycerin Sl Tabs [Nitrostat] 0.4 mg SUBLINGUAL Q5M PRN PRN Reason: Chest Pain LORazepam [Ativan] 0.5 mg PO TID PRN PRN Reason: Anxiety Ergocalciferol [Vitamin D2 (DRISDOL)] 50,000 unit PO Q14D Rosuvastatin [Crestor] 10 mg PO HS Nortriptyline HCl [Pamelor] 50 mg PO HS Liraglutide [Victoza 2-Seferino] 0.6 mg SQ DAILY DULoxetine HCL [Cymbalta] 60 mg PO DAILY Allopurinol [Zyloprim] 100 mg PO BID Lisinopril [Zestril] 40 mg PO DAILY Furosemide [Lasix] 20 mg PO SUTUWETHSA Terazosin HCl 2 mg PO BID Carvedilol [Coreg] 25 mg PO BID [place]-3/Dha/Epa/Fish Oil [Fish Oil 1,360 mg Softgel] 1 cap PO DAILY Furosemide [Lasix] 40 mg PO MOFR Acetaminophen [Tylenol Extra Strength] 500 mg PO DAILY PRN PRN Reason: Pain traMADol HCl [Ultram] 50 mg PO Q6H PRN PRN Reason: Pain Discharge Medication List Allopurinol [Zyloprim] 100 mg PO BID 09/25/16 [History] Aspirin [Adult Low Dose Aspirin EC] 162 mg PO DAILY 09/25/16 [History] Carvedilol [Coreg] 25 mg PO BID 09/25/16 [History] DULoxetine HCL [Cymbalta] 60 mg PO DAILY 09/25/16 [History] Ergocalciferol [Vitamin D2 (DRISDOL)] 50,000 unit PO Q14D 09/25/16 [History] Furosemide [Lasix] 20 mg PO SUTUWETHSA 09/25/16 [History] LORazepam [Ativan] 0.5 mg PO TID PRN 09/25/16 [History] Liraglutide [Victoza 2-Seferino] 0.6 mg SQ DAILY 09/25/16 [History] Lisinopril [Zestril] 40 mg PO DAILY 09/25/16 [History] Multivitamins, Thera [Multivitamin (formulary)] 1 tab PO DAILY 09/25/16 [History ] Nitroglycerin Sl Tabs [Nitrostat] 0.4 mg SUBLINGUAL Q5M PRN 09/25/16 [History] Nortriptyline HCl [Pamelor] 50 mg PO HS 09/25/16 [History] [place]-3/Dha/Epa/Fish Oil [Fish Oil 1,360 mg Softgel] 1 cap PO DAILY 09/25/16 [ History] Rosuvastatin [Crestor] 10 mg PO HS 09/25/16 [History] Terazosin HCl 2 mg PO BID 09/25/16 [History] Ubidecarenone [Co Q-10] 100 mg PO DAILY 09/25/16 [History] Furosemide [Lasix] 40 mg PO MOFR 11/11/16 [History] Acetaminophen [Tylenol Extra Strength] 500 mg PO DAILY PRN 01/31/17 [History] traMADol HCl [Ultram] 50 mg PO Q6H PRN 02/02/17 [History] HYDROcodone/APAP 7.5-325MG [[place] 7.5-325] 1 each PO Q4H PRN #30 tab 02/07/17 [ Rx] Follow up Appointment(s)/Referral(s): Rusty Nieevs MD [STAFF PHYSICIAN] - 02/13/17 Arnaud Gonsalez MD [Primary Care Provider] - 02/10/17 Patient Instructions/Handouts: Full Liquid Diet (DC) Activity/Diet/Wound Care/Special Instructions: Advance diet to a soft diet as tolerated No lifting over 4 pounds Shower daily no tub bath Notify dr nieves of any redness at surgical site fever chills increase abdominal pain Discharge Disposition: HOME SELF-CARE
[2017-02-07] MEDS: traMADol 50 MG TAB PO PRN (13:48)
[2017-02-07] MEDS: ACETAMINOPHEN TAB 325 MG TAB PO PRN (13:48)
[2017-02-07] MEDS ORDERED: DOXAZOSIN 2 MG TAB PO SCH (21:00)
== END 2017-02-07 14:45 | disposition home or self-care (01) | DRG 330 ==
LOC: 2ORWHC 08:16 → 3SUR 13:28
PROVIDERS: ADMIT Surgery; ATTEND Surgery
PROC: 0WQF0ZZ Repair Abdominal Wall, Open Approach (ICD-10-PCS; 2017-02-02)
PROC: 0DBN4ZZ Excision of Sigmoid Colon, Percutaneous Endoscopic Approach (ICD-10-PCS; principal; 2017-02-02 10:15)
DX: K57.32 Diverticulitis of large intestine without perforation or abscess without bleeding (principal); N17.9 Acute kidney failure, unspecified; E11.22 Type 2 diabetes mellitus with diabetic chronic kidney disease; D64.9 Anemia, unspecified; N18.3 Chronic kidney disease, stage 3 (moderate); T41.3X5A Adverse effect of local anesthetics, initial encounter; I95.2 Hypotension due to drugs; K42.9 Umbilical hernia without obstruction or gangrene; I12.9 Hypertensive chronic kidney disease with stage 1 through stage 4 chronic kidney disease, or unspecified chronic kidney disease; I25.10 Atherosclerotic heart disease of native coronary artery without angina pectoris; E78.5 Hyperlipidemia, unspecified; M79.7 Fibromyalgia; I25.2 Old myocardial infarction; F41.9 Anxiety disorder, unspecified; M10.9 Gout, unspecified; Z79.82 Long term (current) use of aspirin; Z79.899 Other long term (current) drug therapy; Z90.49 Acquired absence of other specified parts of digestive tract; Z95.5 Presence of coronary angioplasty implant and graft; Z88.0 Allergy status to penicillin; Z88.8 Allergy status to other drugs, medicaments and biological substances; Z91.048 Other nonmedicinal substance allergy status
CPT/HCPCS: 36415; 80048; 80051; 80053; 82565; 83036; 84520; 85025; 85027; 86850; 86900; 86901; 88307; 94760; 94762

== ENCOUNTER 2017-05-23 14:14 | Observation (INO) | payer MEDICARE, BC ==
[2017-05-23] MEDS ORDERED: MECLIZINE 12.5 MG TAB PO STA (15:13)
[2017-05-23] MEDS ORDERED: SODIUM CHLORIDE 0.9% 500 ML IV STA (15:13)
[2017-05-23 15:24] LABS: Basophils # (A) 0.1 k/uL (0-0.2); Basophils % (A) 1 %; Eosinophils # (A) 0.5 k/uL (0-0.7); Eosinophils % (A) 7 %; HCT 45.7 % (39.0-53.0); Lymphocytes # (A) 1.9 k/uL (1.0-4.8); Lymphocytes % (A) 26 %; MCH 30.5 pg (25.0-35.0); MCV 92.4 fL (80.0-100.0); Mean Platelet Volume 8.2; Monocytes # (A) 0.5 k/uL (0-1.0); Monocytes % (A) 6 %; Neutrophils # (A) 4.2 k/uL (1.3-7.7); Neutrophils % (A) 57 %; Platelet Count 165 k/uL (150-450); RBC 4.94 m/uL (4.30-5.90); RDW 13.7 % (11.5-15.5); WBC 7.3 k/uL (3.8-10.6)
[2017-05-23 15:32] LABS: Albumin 4.3 g/dL (3.5-5.0); Calcium 9.7 mg/dL (8.4-10.2); Potassium 4.9 mmol/L (3.5-5.1); Total Bilirubin 0.7 mg/dL (0.2-1.3); Total Protein 7.6 g/dL (6.3-8.2)
--- NOTE | 2017-05-23 15:36 | ED ---
General Adult HPI - General Chief complaint: Dizziness Stated complaint: dizziness Time Seen by Provider: 05/23/17 14:36 Source: patient, RN notes reviewed Mode of arrival: ambulatory Limitations: no limitations - History of Present Illness Initial comments: 71-year-old male presents for evaluation of dizziness. Patient noted that this morning he felt dizzy while using the restroom. He had sensation of room spinning. Denies significant nausea or vomiting. Patient states these symptoms felt improved throughout the morning. He had several episodes similar mild vertigo sensation in different positions both lying and turning his head. Denies any pain complaints. No chest pain or shortness of breath. No changes in hearing or ear pain or fullness. No recent URI symptoms. No vomiting or diarrhea. No focal weakness. No numbness or paresthesias - Related Data Home Medications Medication Instructions Recorded Confirmed Allopurinol [Zyloprim] 100 mg PO BID 09/25/16 05/23/17 Aspirin [Adult Low Dose Aspirin EC] 162 mg PO DAILY 09/25/16 05/23/17 Carvedilol [Coreg] 25 mg PO BID 09/25/16 05/23/17 DULoxetine HCL [Cymbalta] 60 mg PO DAILY 09/25/16 05/23/17 Ergocalciferol [Vitamin D2 50,000 unit PO Q14D 09/25/16 05/23/17 (DRISDOL)] Furosemide [Lasix] 20 mg PO SUTUWETHSA 09/25/16 05/23/17 LORazepam [Ativan] 1 mg PO TID PRN 09/25/16 05/23/17 Liraglutide [Victoza 2-Seferino] 0.6 mg SQ DAILY 09/25/16 05/23/17 Lisinopril [Zestril] 40 mg PO DAILY 09/25/16 05/23/17 Multivitamins, Thera [Multivitamin 1 tab PO DAILY 09/25/16 05/23/17 (formulary)] Nitroglycerin Sl Tabs [Nitrostat] 0.4 mg SUBLINGUAL Q5M PRN 09/25/16 05/23/17 Nortriptyline HCl [Pamelor] 50 mg PO HS 09/25/16 05/23/17 [place]-3/Dha/Epa/Fish Oil [Fish Oil 1 cap PO DAILY 09/25/16 05/23/17 1,360 mg Softgel] Rosuvastatin [Crestor] 10 mg PO HS 09/25/16 05/23/17 Ubidecarenone [Co Q-10] 100 mg PO DAILY 09/25/16 05/23/17 Furosemide [Lasix] 40 mg PO MOFR 11/11/16 05/23/17 Acetaminophen [Tylenol Extra 500 mg PO DAILY PRN 01/31/17 05/23/17 Strength] traMADol HCl [Ultram] 50 mg PO Q6H PRN 02/02/17 05/23/17 Terazosin HCl 5 mg PO HS 05/23/17 05/23/17 Allergies Allergy/AdvReac Type Severity Reaction Status Date / Time adhesive tape Allergy Rash/Hives Verified 05/23/17 15:41 Penicillins Allergy Itching Verified 05/23/17 15:41 NSAIDS (Non-Steroidal AdvReac Unknown UNABLE TO Verified 05/23/17 15:41 Anti-Inflamma TAKE DUE TO KIDNEY DISEASE. prednisone AdvReac DEPRESSION Verified 05/23/17 15:41 WITH LARGE DOSES Review of Systems ROS Statement: Those systems with pertinent positive or pertinent negative responses have been documented in the HPI. ROS Other: All systems not noted in ROS Statement are negative. 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 Last Myocardial Infarction Date:: 2010 History of Any Multi-Drug Resistant Organisms: None Reported Past Surgical History: Appendectomy, Bowel Resection, Cholecystectomy, Heart Catheterization With Stent Additional Past Surgical History / Comment(s): colon resection Past Anesthesia/Blood Transfusion Reactions: No Reported Reaction, Motion Sickness Date of Last Stent Placement:: 2010 Past Psychological History: Anxiety Smoking Status: Never smoker Past Alcohol Use History: None Reported Past Drug Use History: None Reported - Past Family History Father Family Medical History: Blood Disorder Mother Family Medical History: Cancer General Exam Limitations: no limitations General appearance: alert, in no apparent distress Head exam: Present: atraumatic, normocephalic Eye exam: Present: normal appearance, PERRL, EOMI. Absent: nystagmus ENT exam: Present: normal exam Neck exam: Present: normal inspection, full ROM. Absent: tenderness, meningismus Respiratory exam: Present: normal lung sounds bilaterally. Absent: respiratory distress, wheezes Cardiovascular Exam: Present: regular rate, normal rhythm, systolic murmur GI/Abdominal exam: Present: soft. Absent: distended, tenderness Extremities exam: Present: normal inspection, normal capillary refill. Absent: pedal edema Neurological exam: Present: alert, oriented X3, CN II-XII intact, other (Fine bilateral upper extremity tremor, finger to nose ataxia, normal [id number].). Absent: motor sensory deficit Psychiatric exam: Present: normal affect, normal mood Skin exam: Present: warm, dry, intact. Absent: cyanosis, diaphoretic Course Vital Signs 05/23/17 05/23/17 05/23/17 14:17 14:40 15:35 Temperature 98.6 F Pulse Rate 97 94 96 Respiratory 18 18 18 Rate Blood Pressure 192/92 176/90 147/72 O2 Sat by Pulse 98 97 98 Oximetry EKG Findings - EKG Comments: EKG Findings:: EKG shows sinus rhythm with first-degree AV block, left atrial enlargement, ventricular rate of 90, PA interval 234, QS duration 116, QTC 457 no signs of acute ischemia. Medical Decision Making - Medical Decision Making 70-year-old male presenting with signs of vertigo. Patient does have a resting tremor which he states is chronic in his bilateral upper extremities. Finger- nose testing does reveal ataxia versus tremor. Laboratory studies reveal creatinine 1.45 recent baseline of 1.17, R to the normal limits. Urinalysis shows 2+ proteinuria. CT shows atrophy, no acute intracranial hemorrhage. Given the symptoms of vertigo and possible finger to nose ataxia, patient will be admitted for neurology evaluation. - Lab Data Result diagrams: 05/23/17 14:30 05/23/17 14:30 Lab Results 05/23/17 05/23/17 05/23/17 Range/Units 14:30 14:30 15:37 WBC 7.3 (3.8-10.6) k/uL RBC 4.94 (4.30-5.90) m/uL Hgb 15.0 (13.0-17.5) gm/dL Hct 45.7 (39.0-53.0) % MCV 92.4 (80.0-100.0) fL MCH 30.5 (25.0-35.0) pg MCHC 33.0 (31.0-37.0) g/dL RDW 13.7 (11.5-15.5) % Plt Count 165 (150-450) k/uL Neutrophils % 57 % Lymphocytes % 26 % Monocytes % 6 % Eosinophils % 7 % Basophils % 1 % Neutrophils # 4.2 (1.3-7.7) k/uL Lymphocytes # 1.9 (1.0-4.8) k/uL Monocytes # 0.5 (0-1.0) k/uL Eosinophils # 0.5 (0-0.7) k/uL Basophils # 0.1 (0-0.2) k/uL Sodium 140 (137-145) mmol/L Potassium 4.9 (3.5-5.1) mmol/L Chloride 102 (98-107) mmol/L Carbon Dioxide 26 (22-30) mmol/L Anion Gap 12 mmol/L BUN 27 H (9-20) mg/dL Creatinine 1.45 H (0.66-1.25) mg/dL Est GFR (MDRD) Af Amer 58 (>60 ml/min/1.73 sqM) Est GFR (MDRD) Non-Af 48 (>60 ml/min/1.73 sqM) Glucose 177 H (74-99) mg/dL Calcium 9.7 (8.4-10.2) mg/dL Total Bilirubin 0.7 (0.2-1.3) mg/dL AST 49 (17-59) U/L ALT 42 (21-72) U/L Alkaline Phosphatase 80 (38-126) U/L Total Protein 7.6 (6.3-8.2) g/dL Albumin 4.3 (3.5-5.0) g/dL Urine Color Yellow Urine Appearance Clear (Clear) Urine pH 5.5 (5.0-8.0) Ur Specific [place] 1.007 (1.001-1.035) Urine Protein 2+ H (Negative) Urine Glucose (UA) Negative (Negative) Urine Ketones Negative (Negative) Urine Blood Negative (Negative) Urine Nitrite Negative (Negative) Urine Bilirubin Negative (Negative) Urine Urobilinogen <2.0 (<2.0) mg/dL Ur Leukocyte Esterase Negative (Negative) Urine RBC 1 (0-5) /hpf Urine WBC 1 (0-5) /hpf Ur Squamous Epith Cells <1 (0-4) /hpf Urine Mucus Rare H (None) /hpf Disposition Clinical Impression: Vertigo, Ataxia Disposition: ADMITTED IP TO THIS HOSP Condition: Stable Referrals: Arnaud Gonsalez MD [Primary Care Provider] - 1-2 days Decision to Admit Reason: Admit from EC Decision Date: 05/23/17 Decision Time: 16:34
--- NOTE | 2017-05-23 15:40 | CT ---
EXAMINATION TYPE: CT brain wo con DATE OF EXAM: 05/23/2017 COMPARISON: 12/30/2016 HISTORY: Dizziness today CT DLP: 1144.7 mGycm Automated exposure control for dose reduction was used. TECHNIQUE: CT scan of the head is performed without contrast. FINDINGS: There is no acute intracranial hemorrhage, mass effect, or midline shift identified. The ventricles and sulci are symmetrically prominent compatible with age-related volume loss. Few foci of nonspecifi c white matter change are seen as hypoattenuated foci within the subcortical and periventricular whit e matter. These are most commonly on the basis of chronic microangiopathy. The globes are intact and the visualized sinuses are clear. IMPRESSION: Age-related cerebral atrophy with no acute intracranial process.
[2017-05-23 15:45] LABS: Appearance,Urine Clear (Clear); Bilirubin,Urine Negative (Negative); Blood,Urine Negative (Negative); Color,Urine Yellow; Glucose,Urine (UA) Negative (Negative); Ketones,Urine Negative (Negative); Leukocyte Esterase,Urine Negative (Negative); Mucus,Urine Rare /hpf; PH, Urine 5.5 (5.0-8.0); Protein,Urine 2+ (Negative); RBC,Urine 1 /hpf (0-5); Specific Gravity,Urine 1.007 (1.001-1.035); Squamous Epithelial Cell,Urine <1 /hpf (0-4); Urobilinogen,Urine <2.0 mg/dL (<2.0); WBC,Urine 1 /hpf (0-5)
[2017-05-23] MEDS ORDERED: CLOPIDOGREL 75 MG TAB PO STA (16:35)
[2017-05-23] MEDS ORDERED: NALOXONE 0.4 MG/ML 1 ML VIAL IV PRN (16:35)
[2017-05-23] MEDS: SODIUM CHLORIDE 0.9% 1,000 ML IV SCH (17:21)
[2017-05-23 18:23] VITALS: BMI 28.8
[2017-05-23] MEDS: CARVEDILOL 12.5 MG TAB PO SCH (18:50)
[2017-05-23 21:08] LABS: Glucose,Whole Blood 161 mg/dL (75-99)
[2017-05-23] MEDS: INSULIN ASPART 100 UNIT/ML 1 ML 10 ML VIAL SQ SCH (21:24)
[2017-05-23] MEDS: LORazepam 1 MG TAB PO PRN (22:05)
[2017-05-24] MEDS ORDERED: NITROGLYCERIN SL TABS 0.4 MG TAB SUBLINGUAL PRN (01:05)
[2017-05-24] MEDS ORDERED: ACETAMINOPHEN TAB 500 MG TAB PO PRN (01:05)
[2017-05-24] MEDS ORDERED: traMADol 50 MG TAB PO PRN (01:05)
[2017-05-24] MEDS: SODIUM CHLORIDE 0.9% 1,000 ML IV SCH ×2 (05:05→06:05)
--- NOTE | 2017-05-24 07:10 | HP ---
HISTORY AND PHYSICAL DATE OF SERVICE: 05/23/2017 CHIEF COMPLAINT: The chief complaint is vertigo. HISTORY OF PRESENT ILLNESS: This 71-year-old gentleman with the past medical history of CAD, diabetes, fibromyalgia, hypertension, hyperlipidemia, history of low anterior resection for diverticulitis being followed by Dr. Santosh Granado in the outpatient setting who was complaining of vertigo. The patient woke up this morning and after turning the head in the bed, the patient was found to have severe vertigo. Subsequently patient had and patient came to [facility] and admitted for further evaluation and treatment. There is no history of any fever or rigors. No history of headache , loss of consciousness or seizures. The patient had some tremors previously. PAST MEDICAL HISTORY: History of CAD, diabetes mellitus, hypertension, hyperlipidemia, history of myocardial infarction, history of syncope and history of transient global amnesia previously. MEDICATIONS: Home medications are: 1. Ultram 50 mg q.6 p.r.n.. 2. Coenzyme Q 100 mg p.o. daily. 3. Terazosin 5 mg q.h.s. 4. Crestor 10 mg q.h.s. 5. Fish oil 1 p.o. daily. 6. Pamelor 50 mg q.h.s. 7. Nitrostat 0.4 sublingual p.r.n. 8. Multivitamins 1 p.o. daily. 9. Zestril 40 mg p.o. daily. 10.Victoza 2-Seferino 0.6 subcu daily. 11.Ativan 1 mg t.i.d. p.r.n. 12.Lasix 40 mg p.o. Monday, Monday. 13.Lasix 20 mg on Monday, Monday, Monday, , Monday. 14.Vitamin D2, 50,000 q.14 days. 15.Cymbalta 60 mg p.o. daily. 16.Coreg 25 mg p.o. b.i.d. 17.Aspirin 162 mg p.o. daily. 18.Zyloprim 100 mg p.o. b.i.d. 19.Tylenol Extra Strength 500 mg daily p.r.n. ALLERGIES: Allergies are ADHESIVE TAPE, PENICILLIN, NSAIDS, PREDNISONE. FAMILY HISTORY: History of blood disorder and melanoma in the family. SOCIAL HISTORY: No history of smoking. No history of alcohol intake. REVIEW OF SYSTEMS: ENT: As mentioned earlier. CARDIOVASCULAR SYSTEM: No angina. RESPIRATORY SYSTEM: No cough or hemoptysis. GI: No nausea or vomiting. : No dysuria. NERVOUS SYSTEM: No numbness or weakness. ALLERGY/IMMUNOLOGY: No history of asthma. MUSCULOSKELETAL: As mentioned earlier. HEMATOLOGY/ONCOLOGY: No history of anemia. ENDOCRINE: diabetes mellitus, hypothyroidism. CONSTITUTIONAL: As mentioned earlier. DERMATOLOGY: Negative. RHEUMATOLOGY: Negative. PSYCHIATRY: As mentioned earlier. PHYSICAL EXAMINATION: The patient is alert and oriented x3. Pulse 88, blood pressure 117/61, respiration rate 12, temperature 98 degrees, pulse ox 97% on room air. HEENT: Conjunctivae normal. NECK: No jugular venous distention. CARDIOVASCULAR: S1 and S2 muffled. RESPIRATORY: Breath sounds diminished at the bases. No rhonchi, no crackles. ABDOMEN: Soft, nontender. No mass palpable. LEGS: No edema, no swelling. NERVOUS SYSTEM: Higher function as mentioned. Cranial nerves 2 through 12 grossly intact. No nystagmus noted. Otherwise minimal finger to nose mostly tremors present. Gait not tested. SKIN: No ulcer, rash or bleeding. JOINTS: No active deforming arthropathy. LAB: CBC within normal limits. Creatinine is 1.45. ASSESSMENT: 1. Vertigo for evaluation, possibly benign positional vertigo, rule out stroke. 2. Increased creatinine with chronic kidney disease stage 3. 3. History of coronary artery disease. 4. History of diabetes mellitus type 2. 5. Fibromyalgia. 6. Hypertension. 7. Hyperlipidemia. 8. History of myocardial infarction. 9. History of syncope. 10.History of transient global amnesia. 11.History of gout. 12.History of diverticulitis and low anterior resection. 13.Appendectomy. 14.History of coronary artery disease, stent. 15.History of anxiety. RECOMMENDATIONS AND DISCUSSION: This 71-year-old gentleman who presented with multiple medical problems, we will monitor the patient closely. Continue the current medications, continue symptomatic treatment. Otherwise, neuro checks and neurovascular workup. I would also recommend lipid levels and 2-D echo, carotid Doppler. Other than that, I would resume the home medications, DVT prophylaxis. Prognosis guarded. Discussed with the patient, understands and agrees. Further recommendations to follow. A copy of dictation forwarded to Dr. Santosh Granado who is the primary physician. Will continue the Crestor as well. Neurology has been consulted, neuro checks. MMODL / IJN: [id number] / SINCERE
[2017-05-24 07:12] LABS: Glucose,Whole Blood 120 mg/dL (75-99)
[2017-05-24] MEDS: INSULIN ASPART 100 UNIT/ML 1 ML 10 ML VIAL SQ SCH ×2 (07:24→11:56)
[2017-05-24] MEDS: CARVEDILOL 12.5 MG TAB PO SCH (08:26)
[2017-05-24] MEDS ORDERED: DHA PO SCH (09:00)
[2017-05-24] MEDS ORDERED: ALLOPURINOL 100 MG TAB PO SCH (09:00)
[2017-05-24] MEDS ORDERED: LISINOPRIL 20 MG TAB PO SCH (09:00)
[2017-05-24] MEDS ORDERED: MULTIVITAMINS, THERA 1 EACH TAB PO SCH (09:00)
[2017-05-24] MEDS ORDERED: NON-FORMULARY DRUG (Liraglutide [Victoza 2-Pak] 0.6 MG) SQ SCH (09:00)
[2017-05-24] MEDS ORDERED: ERGOCALCIFEROL 50,000 UNIT CAP PO SCH (09:00)
[2017-05-24] MEDS ORDERED: DULoxetine HCL 60 MG CAPSULE.DR PO SCH (09:00)
[2017-05-24] MEDS ORDERED: OMEGA PO SCH (09:00)
[2017-05-24] MEDS ORDERED: FUROSEMIDE 20 MG TAB PO SCH (09:00)
[2017-05-24] MEDS ORDERED: EPA PO SCH (09:00)
[2017-05-24] MEDS ORDERED: ASPIRIN 81 MG PO SCH (09:00)
[2017-05-24] MEDS ORDERED: FISH OIL PO SCH (09:00)
[2017-05-24] MEDS ORDERED: NON-FORMULARY DRUG (Ubidecarenone [Co Q-10] 100 MG) PO SCH (09:00)
[2017-05-24 10:45] LABS: Basophils # (A) 0.1 k/uL (0-0.2); Basophils % (A) 1 %; Eosinophils # (A) 0.5 k/uL (0-0.7); Eosinophils % (A) 9 %; HCT 43.5 % (39.0-53.0); HGB 14.5 gm/dL (13.0-17.5); Lymphocytes # (A) 1.5 k/uL (1.0-4.8); Lymphocytes % (A) 25 %; MCH 30.1 pg (25.0-35.0); MCHC 33.2 g/dL (31.0-37.0); MCV 90.7 fL (80.0-100.0); Mean Platelet Volume 7.4; Monocytes # (A) 0.3 k/uL (0-1.0); Monocytes % (A) 6 %; Neutrophils # (A) 3.4 k/uL (1.3-7.7); Neutrophils % (A) 57 %; Platelet Count 151 k/uL (150-450); WBC 5.9 k/uL (3.8-10.6)
--- NOTE | 2017-05-24 10:51 | US ---
EXAMINATION TYPE: US carotid duplex BILAT DATE OF EXAM: 05/24/2017 COMPARISON: NONE CLINICAL HISTORY: stroke. Vertigo EXAM MEASUREMENTS: RIGHT: Peak Systolic Velocity (PSV) cm/sec ----- Right CCA: 77.8 ----- Right ICA: 96.5 ----- Right ECA: 160.9 ICA/CCA ratio: 1.2 RIGHT: End Diastole cm/sec ----- Right CCA: 18.4 ----- Right ICA: 39.2 ----- Right ECA: 9.1 LEFT: Peak Systolic Velocity (PSV) cm/sec ----- Left CCA: 95.0 ----- Left ICA: 113.5 ----- Left ECA: 103.8 ICA/CCA ratio: 1.2 LEFT: End Diastole cm/sec ----- Left CCA: 15.6 ----- Left ICA: 33.2 ----- Left ECA: 8.2 VERTEBRALS (direction of flow): Right Vertebral: Antegrade Left Vertebral: Antegrade Rhythm: Normal Mild plaque noted bilateral bifurcations. Mildly increased velocities right ECA. Grayscale, color Doppler, spectral Doppler imaging performed of the carotid arteries. Atheromatous changes are present within the carotid bulbs. IMPRESSION: No hemodynamic significant stenosis of the proximal internal carotid arteries bilaterall y by Doppler criteria, an indirect measurement of carotid stenosis
[2017-05-24 11:04] LABS: ALT 40 U/L (21-72); AST 30 U/L (17-59); Albumin 3.7 g/dL (3.5-5.0); Alkaline Phosphatase 67 U/L (38-126); Anion Gap 9 mmol/L; Blood Urea Nitrogen 24 mg/dL (9-20); Calcium 8.7 mg/dL (8.4-10.2); Carbon Dioxide 27 mmol/L (22-30); Chloride 103 mmol/L (98-107); Glucose 212 mg/dL (74-99); Potassium 4.7 mmol/L (3.5-5.1); Sodium 139 mmol/L (137-145); Total Bilirubin 0.5 mg/dL (0.2-1.3); Total Protein 6.4 g/dL (6.3-8.2)
--- NOTE | 2017-05-24 11:10 | ECHOF ---
Referral Reason:Stroke MEASUREMENTS -------- HEIGHT: 172.7 cm WEIGHT: 86.2 kg BP: 134/79 IVSd: 1.0 cm (0.6 - 1.1) LVIDd: 3.5 cm (3.9 - 5.3) LVPWd: 1.2 cm (0.6 - 1.1) IVSs: 1.7 cm LVIDs: 2.0 cm LVPWs: 1.6 cm LAESV Index (A-L): 22.28 ml/m Ao Diam: 3.3 cm (2.0 - 3.7) AV Cusp: 1.1 cm (1.5 - 2.6) LA Diam: 4.0 cm (2.7 - 3.8) MV E Oniel: 0.51 m/s MV DecT: 121 ms MV A Oniel: 1.29 m/s MV E/A Ratio: 0.39 AV maxP.16 mmHg AV meanP.50 mmHg RAP: 5.00 mmHg RVSP: 10.74 mmHg FINDINGS -------- Sinus rhythm. This was a technically difficult study with suboptimal views. The left ventricular size is normal. There is borderline concentric left ventricular hypertrophy. Overall left ventricular systolic function is mild-moderately impaired with, an EF between 40 - 45 % . The diastolic filling pattern is normal for the age of the patient 12.80. Apical inferior LV wa ll motion is hypokinetic. Apical septum LV wall motion is hypokinetic. [place] Hypokinesis. The right ventricle is normal in size and function. Normal LA size by volume 22+/-6 ml/m2. The right atrium is normal in size. 1.5mg of Definity was utilized for enhancement of images Aortic valve is trileaflet and is mildly thickened. There is mild aortic stenosis present. Peak/m pedrito gradient across the Aortic Valve is 12.16mmHg / 6.50mmHg. The mitral valve leaflets are mildly thickened. Mild mitral annular calcification present. Mild m itral regurgitation is present. Mild tricuspid regurgitation present. The right ventricular systolic pressure, as measured by Doppl er, is 10.74mmHg. Pulmonic valve appears structurally normal. The aortic root size is normal. Normal inferior vena cava with normal inspiratory collapse consistent with estimated right atrial pre ssure of 5 mmHg. The pericardium is normal. CONCLUSIONS -------- 1. Sinus rhythm. 2. This was a technically difficult study with suboptimal views. 3. The left ventricular size is normal. 4. There is borderline concentric left ventricular hypertrophy. 5. Overall left ventricular systolic function is mild-moderately impaired with, an EF between 40 - 45 %. 6. The diastolic filling pattern is normal for the age of the patient 12.80 7. Apical inferior LV wall motion is hypokinetic. 8. Apical septum LV wall motion is hypokinetic. 9. [place] Hypokinesis. 10. The right ventricle is normal in size and function. 11. Normal LA size by volume 22+/-6 ml/m2. 12. The right atrium is normal in size. 13. Lumason used 14. Aortic valve is trileaflet and is mildly thickened. 15. There is mild aortic stenosis present. 16. Peak/mean gradient across the Aortic Valve is 12.16mmHg / 6.50mmHg. 17. The mitral valve leaflets are mildly thickened. 18. Mild mitral annular calcification present. 19. Mild mitral regurgitation is present. 20. Mild tricuspid regurgitation present. 21. The right ventricular systolic pressure, as measured by Doppler, is 10.74mmHg. 22. Pulmonic valve appears structurally normal. 23. The aortic root size is normal. 24. Normal inferior vena cava with normal inspiratory collapse consistent with estimated right atrial pressure of 5 mmHg. 25. The pericardium is normal. PIPE FITTER WELDING: Janice Westfall RDCS
[2017-05-24 11:43] LABS: Glucose,Whole Blood 154 mg/dL (75-99)
[2017-05-24] MEDS ORDERED: MECLIZINE 12.5 MG TAB PO PRN (12:41)
[2017-05-24] MEDS: LORazepam 1 MG TAB PO PRN (13:19)
[2017-05-24 15:21] VITALS: BP 150/75; PULSE 89; RESP 16; TEMP 98
--- NOTE | 2017-05-24 15:48 | MR ---
EXAMINATION TYPE: MR brain wo con DATE OF EXAM: 05/24/2017 COMPARISON: CT brain from yesterday HISTORY: New onset Dizziness, R/O brainstem stroke TECHNIQUE: Multiplanar, multisequence imaging of the brain and brainstem is performed without IV cont rast. FINDINGS: Diffusion weighted images demonstrate no evidence of a recent infarct or other diffusion abnormality with particular attention to the brainstem at area of clinical concern. Ventricles and sulci are mildly prominent consistent with mild age-related cerebral atrophy. There is slightly more prominent CSF spaces over the frontal lobes bilaterally suggesting asymmetric increase d frontal lobe atrophy. There are some scattered foci T2 hyperintensity seen throughout the deep and periventricular white matter. Lesions are nonspecific in appearance and distribution. Midline structures demonstrate normal morphology. The craniocervical junction appears within normal limits. Normal vascular flow voids are present. Dominant left vertebral artery is incidentally noted. The visualized sinuses are clear and the globes are intact. Some patchy fluid signal left mastoid ai r cells remains present. Correlate for tenderness at this level advised. IMPRESSION: 1. No evidence of a recent infarct. 2. Mild diffuse cerebral atrophy with slightly more prominent mild to moderate symmetric frontal lobe atrophy and mild chronic small vessel ischemic change identified. 3. Mild increased fluid signal left mastoid air cells raises concern for mild mastoiditis, clinical c orrelation recommended.
[2017-05-24 17:13] LABS: Glucose,Whole Blood 112 mg/dL (75-99)
--- NOTE | 2017-05-24 19:49 | DS ---
DISCHARGE SUMMARY DATE OF SERVICE: 05/24/2017. FINAL DIAGNOSES: 1. Vertigo, possibly benign positional vertigo. 2. Increased creatinine with chronic kidney stage III. 3. History of coronary artery disease. 4. History of diabetes mellitus type 2. 5. Fibromyalgia. 6. Hypertension. 7. Hyperlipidemia. 8. Myocardial infarction. 9. History of syncope. 10.History of transient global amnesia. 11.History of gout. 12.History of diverticulitis and low anterior resection. DISCHARGE DISPOSITION: The patient is being discharged in stable condition with guarded prognosis. HISTORY OF PRESENT ILLNESS: This 71-year-old gentleman with a past history of multiple medical problems was admitted with history of vertigo. The patient was monitored closely. Stroke was ruled out. The MRI did not show any acute abnormality. Neurology saw the patient and cleared for discharge in stable condition with guarded prognosis after Neurology clearance. EXAM: Vitals are stable. Cardiovascular: S1, S2. Abdomen: Soft. Nervous System: No focal deficits. DISCHARGE ADVICE AND MEDICATIONS: 1. Diet is cardiac. 2. Activity limited until followup. 3. Follow up with Dr. Arnaud Gonsalez in 2-3 days. 4. Follow up with Dr. Santana. 5. Follow with the ENT p.r.n. MEDICATIONS: 1. Tylenol 500 mg daily p.r.n. 2. Zyloprim 100 mg p.o. b.i.d. 3. Ecotrin 160 mg p.o. daily. 4. Coreg 25 mg p.o. b.i.d. 5. Cymbalta 60 mg p.o. daily. 6. Vitamin D2 2000 units p.o. q.14 days. 7. Lasix 20 mg Monday, Monday, Monday, , Monday. 8. Lasix 40 mg Monday, Monday. 9. Victoza 0.6 mg subcu daily. 10.Zestril 40 mg daily. 11.Ativan 1 mg t.i.d. p.r.n. 12.Antivert 12.5 mg p.o. t.i.d. 13.Multivitamin 1 p.o. daily. 14.Nitroglycerin 0.4 sublingual p.r.n. 15.[place]-3 fatty acids 1 p.o. daily. 16.Crestor 10 mg p.o. q.h.s. 17.Terazosin 5 mg q.h.s. 18.Ultram 50 mg q.6h p.r.n. 19.Coenzyme Q 100 mg p.o. daily. The patient is discharged in a stable condition with guarded prognosis. Total time taken 35 minutes. MMOZIELL / NAUN: [id number] /
[2017-05-24] MEDS ORDERED: DOXAZOSIN 4 MG TAB PO SCH (21:00)
[2017-05-24] MEDS ORDERED: NORTRIPTYLINE 25 MG CAP PO SCH (21:00)
[2017-05-24] MEDS ORDERED: ATORVASTATIN 20 MG TAB PO SCH (21:00)
[2017-05-26] MEDS ORDERED: FUROSEMIDE 20 MG TAB PO SCH (09:00)
== END 2017-05-24 17:20 | disposition home or self-care (01) ==
LOC: EC 14:14 → INTOOBSV 16:35 → 4MS4W 16:35
PROVIDERS: ADMIT Internal Medicine; ATTEND Internal Medicine
DX: R42 Dizziness and giddiness (principal); I12.9 Hypertensive chronic kidney disease with stage 1 through stage 4 chronic kidney disease, or unspecified chronic kidney disease; N18.3 Chronic kidney disease, stage 3 (moderate); R25.1 Tremor, unspecified; I25.10 Atherosclerotic heart disease of native coronary artery without angina pectoris; E11.22 Type 2 diabetes mellitus with diabetic chronic kidney disease; M79.7 Fibromyalgia; E78.5 Hyperlipidemia, unspecified; I25.2 Old myocardial infarction; Z95.5 Presence of coronary angioplasty implant and graft; F41.9 Anxiety disorder, unspecified; M10.9 Gout, unspecified; Z86.69 Personal history of other diseases of the nervous system and sense organs; Z87.19 Personal history of other diseases of the digestive system; Z90.49 Acquired absence of other specified parts of digestive tract; Z79.82 Long term (current) use of aspirin; Z79.84 Long term (current) use of oral hypoglycemic drugs; Z79.899 Other long term (current) drug therapy; Z88.6 Allergy status to analgesic agent; Z88.0 Allergy status to penicillin; Z88.8 Allergy status to other drugs, medicaments and biological substances; Z91.048 Other nonmedicinal substance allergy status; Z80.8 Family history of malignant neoplasm of other organs or systems; Z83.2 Family history of diseases of the blood and blood-forming organs and certain disorders involving the immune mechanism
CPT/HCPCS: 96360 ×2; 96361 ×3; 99285; 36415; 93005; 80053 ×2; 85025 ×2; 81001; 93880; 70450; 70551; G0378; C8929; Q9950; 93306

== ENCOUNTER 2018-11-06 23:57 | Emergency (ER) | payer MEDICARE, BC ==
[2018-11-07 00:09] VITALS: RESP 18
[2018-11-07] MEDS ORDERED: MORPHINE SULFATE 4 MG/ML SYRINGE IV STA (00:16)
[2018-11-07] MEDS ORDERED: SODIUM CHLORIDE 0.9% 1,000 ML IV STA (00:16)
[2018-11-07] MEDS ORDERED: ONDANSETRON 4 MG/2 ML VIAL IVP STA (00:16)
[2018-11-07 00:44] LABS: Basophils % (A) 0 %; Eosinophils # (A) 0.1 k/uL (0-0.7); Eosinophils % (A) 2 %; HCT 48.1 % (39.0-53.0); HGB 16.4 gm/dL (13.0-17.5); Lymphocytes # (A) 1.6 k/uL (1.0-4.8); Lymphocytes % (A) 21 %; MCHC 34.1 g/dL (31.0-37.0); MCV 90.8 fL (80.0-100.0); Mean Platelet Volume 7.3; Monocytes # (A) 0.7 k/uL (0-1.0); Monocytes % (A) 10 %; Neutrophils # (A) 4.8 k/uL (1.3-7.7); Neutrophils % (A) 64 %; Platelet Count 156 k/uL (150-450); WBC 7.4 k/uL (3.8-10.6)
[2018-11-07 01:00] LABS: Albumin 4.6 g/dL (3.5-5.0); Calcium 9.8 mg/dL (8.4-10.2); Potassium 4.2 mmol/L (3.5-5.1); Total Bilirubin 0.8 mg/dL (0.2-1.3); Total Protein 7.9 g/dL (6.3-8.2)
[2018-11-07] MEDS ORDERED: SODIUM CHLORIDE 0.9% 500 ML 500 ML IV STA (01:45)
--- NOTE | 2018-11-07 02:13 | ED ---
General Adult HPI - General Chief complaint: Nausea/Vomiting/Diarrhea Stated complaint: Vomiting Time Seen by Provider: 11/07/18 00:16 Source: patient, RN notes reviewed Mode of arrival: wheelchair Limitations: no limitations - History of Present Illness Initial comments: 73-year-old male presents to the emergency department for a chief complaint of nausea vomiting diarrhea. Patient has a history of CAD, diabetes, hyperlipidemia, hypertension, renal disease, [place]. Patient has also had sepsis secondary to diverticulitis multiple times. Patient has had resection of the colon multiple times because of this. Patient states that he ate cheesy [employer] restaurant yesterday afternoon. States that throughout the night he started to have some sharp cramping abdominal pain. Sates she started to have nausea vomiting and diarrhea. States this has lasted throughout the day. He states he has had several episodes of diarrhea. Patient is concerned because he has had diverticular does present in a similar fashion previously. states they want to make sure he is not having diverticulitis again.Patient has no other complaints at this time including shortness of breath, chest pain, abdominal pain, nausea or vomiting, headache, or visual changes. - Related Data Home Medications Medication Instructions Recorded Confirmed Allopurinol [Zyloprim] 100 mg PO BID 09/25/16 05/23/17 Aspirin [Adult Low Dose Aspirin EC] 162 mg PO DAILY 09/25/16 05/23/17 Carvedilol [Coreg] 25 mg PO BID 09/25/16 05/23/17 DULoxetine HCL [Cymbalta] 60 mg PO DAILY 09/25/16 05/23/17 Ergocalciferol [Vitamin D2 50,000 unit PO Q14D 09/25/16 05/23/17 (DRISDOL)] Furosemide [Lasix] 20 mg PO SUTUWETHSA 09/25/16 05/23/17 LORazepam [Ativan] 1 mg PO TID PRN 09/25/16 05/23/17 Liraglutide [Victoza 2-Seferino] 0.6 mg SQ DAILY 09/25/16 05/23/17 Lisinopril [Zestril] 40 mg PO DAILY 09/25/16 05/23/17 Multivitamins, Thera [Multivitamin 1 tab PO DAILY 09/25/16 05/23/17 (formulary)] Nitroglycerin Sl Tabs [Nitrostat] 0.4 mg SUBLINGUAL Q5M PRN 09/25/16 05/23/17 Nortriptyline HCl [Pamelor] 50 mg PO HS 09/25/16 05/23/17 [place]-3/Dha/Epa/Fish Oil [Fish Oil 1 cap PO DAILY 09/25/16 05/23/17 1,360 mg Softgel] Rosuvastatin [Crestor] 10 mg PO HS 09/25/16 05/23/17 Ubidecarenone [Co Q-10] 100 mg PO DAILY 09/25/16 05/23/17 Furosemide [Lasix] 40 mg PO MOFR 11/11/16 05/23/17 Acetaminophen [Tylenol Extra 500 mg PO DAILY PRN 01/31/17 05/23/17 Strength] traMADol HCl [Ultram] 50 mg PO Q6H PRN 02/02/17 05/23/17 Terazosin HCl 5 mg PO HS 05/23/17 05/23/17 Previous Rx's Medication Instructions Recorded Meclizine [Antivert] 12.5 mg PO TID PRN #30 tab 05/24/17 Dicyclomine [Bentyl] 10 mg PO QID PRN #15 capsule 11/07/18 Ondansetron [Zofran ODT] 4 mg PO Q8HR PRN #15 tab 11/07/18 Allergies Allergy/AdvReac Type Severity Reaction Status Date / Time adhesive tape Allergy Rash/Hives Verified 11/07/18 00:09 Penicillins Allergy Itching Verified 11/07/18 00:09 NSAIDS (Non-Steroidal AdvReac Unknown UNABLE TO Verified 11/07/18 00:09 Anti-Inflamma TAKE DUE TO KIDNEY DISEASE. prednisone AdvReac DEPRESSION Verified 11/07/18 00:09 WITH LARGE DOSES Review of Systems ROS Statement: Those systems with pertinent positive or pertinent negative responses have been documented in the HPI. ROS Other: All systems not noted in ROS Statement are negative. 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 Last Myocardial Infarction Date:: 2010 History of Any Multi-Drug Resistant Organisms: None Reported Past Surgical History: Appendectomy, Bowel Resection, Cholecystectomy, Heart Catheterization With Stent Additional Past Surgical History / Comment(s): Colon Resection Feb 2017 Past Anesthesia/Blood Transfusion Reactions: No Reported Reaction, Motion Sickness Date of Last Stent Placement:: 2010 Past Psychological History: Anxiety Smoking Status: Never smoker Past Alcohol Use History: None Reported Past Drug Use History: None Reported - Past Family History Father Family Medical History: Blood Disorder Mother Family Medical History: Cancer Additional Family Medical History / Comment(s): Melanoma General Exam Limitations: no limitations General appearance: alert, in no apparent distress Head exam: Present: atraumatic, normocephalic, normal inspection Eye exam: Present: normal appearance, PERRL, EOMI. Absent: scleral icterus, conjunctival injection, periorbital swelling ENT exam: Present: normal exam, mucous membranes moist Neck exam: Present: normal inspection, full ROM. Absent: tenderness, meningismus, lymphadenopathy Respiratory exam: Present: normal lung sounds bilaterally. Absent: respiratory distress, wheezes, rales, rhonchi, stridor Cardiovascular Exam: Present: regular rate, normal rhythm, normal heart sounds. Absent: systolic murmur, diastolic murmur, rubs, gallop, clicks GI/Abdominal exam: Present: soft, tenderness (Diffuse lower abdominal tenderness worse to the left lower quadrant.), normal bowel sounds. Absent: distended, guarding, rebound, rigid Neurological exam: Present: alert, oriented X3, CN II-XII intact Psychiatric exam: Present: normal affect, normal mood Course Vital Signs 11/07/18 00:07 Temperature 98.6 F Pulse Rate 126 H Respiratory 18 Rate Blood Pressure 148/99 O2 Sat by Pulse 97 Oximetry Medical Decision Making - Medical Decision Making 73-year-old male presents to the emergency department for a chief complaint of nausea vomiting diarrhea. Patient has had diverticulitis consciousness is concerned about this. States that yesterday he ate some cheesy pasta at a restaurant [place] started to have nausea vomiting diarrhea. Patient states this persisted throughout today. Patient is also having sharp cramping lower abdominal pain. No fevers or chills at home. Patient initially tachycardic on presentation with a heart rate of 126. After fluids this did decrease to the 90s when I am in the room. This tachycardia was likely secondary to dehydration. On exam patient does have some diffuse abdominal tenderness, worse left lower quadrant. CBC unremarkable. CMP does show an elevated creatinine which is likely secondary to stage III kidney disease. CT abdomen and pelvis shows multiple fluid distended loops which may represent enteritis. However subtle partial small bowel obstruction difficult to to exclude. However patient is passing stool and gas without difficulty. There is also minimal scattered pneumobilia noted within the liver. Patient does not have any significant right upper quadrant pain. This is likely not related to patient's current symptoms as these are consistent with a gastroenteritis. Patient was given pain medications and rehydrated. He will be discharged home with Jaswinder. He will return here if you have any worsening symptoms. Strict return primary care discussed including worsening abdominal pain, fevers, or inability to tolerate solids or liquids. - Lab Data Result diagrams: 11/07/18 00:30 11/07/18 00:30 Lab Results 11/07/18 11/07/18 Range/Units 00:30 00:30 WBC 7.4 (3.8-10.6) k/uL RBC 5.30 (4.30-5.90) m/uL Hgb 16.4 (13.0-17.5) gm/dL Hct 48.1 (39.0-53.0) % MCV 90.8 (80.0-100.0) fL MCH 31.0 (25.0-35.0) pg MCHC 34.1 (31.0-37.0) g/dL RDW 14.0 (11.5-15.5) % Plt Count 156 (150-450) k/uL Neutrophils % 64 % Lymphocytes % 21 % Monocytes % 10 % Eosinophils % 2 % Basophils % 0 % Neutrophils # 4.8 (1.3-7.7) k/uL Lymphocytes # 1.6 (1.0-4.8) k/uL Monocytes # 0.7 (0-1.0) k/uL Eosinophils # 0.1 (0-0.7) k/uL Basophils # 0.0 (0-0.2) k/uL Sodium 140 (137-145) mmol/L Potassium 4.2 (3.5-5.1) mmol/L Chloride 104 (98-107) mmol/L Carbon Dioxide 22 (22-30) mmol/L Anion Gap 14 mmol/L BUN 33 H (9-20) mg/dL Creatinine 1.72 H (0.66-1.25) mg/dL Est GFR (CKD-EPI)AfAm 45 (>60 ml/min/1.73 sqM) Est GFR (CKD-EPI)NonAf 39 (>60 ml/min/1.73 sqM) Glucose 178 H (74-99) mg/dL Calcium 9.8 (8.4-10.2) mg/dL Total Bilirubin 0.8 (0.2-1.3) mg/dL AST 27 (17-59) U/L ALT 37 (21-72) U/L Alkaline Phosphatase 89 (38-126) U/L Total Protein 7.9 (6.3-8.2) g/dL Albumin 4.6 (3.5-5.0) g/dL Lipase 89 (23-300) U/L Disposition Clinical Impression: Nausea, vomiting and diarrhea Disposition: HOME SELF-CARE Condition: Good Instructions (If sedation given, give patient instructions): Acute Nausea and Vomiting (ED), Acute Diarrhea (ED) Additional Instructions: Please take Zofran as needed for nausea. Take Bentyl as needed for pain. Please follow-up with primary care in 1-2 days. Return here to the emergency department if you have any worsening symptoms. Prescriptions: Dicyclomine [Bentyl] 10 mg PO QID PRN #15 capsule PRN Reason: Pain Ondansetron [Zofran ODT] 4 mg PO Q8HR PRN #15 tab PRN Reason: Nausea Is patient prescribed a controlled substance at d/c from ED?: No Referrals: Arnaud Gonsalez MD [Primary Care Provider] - 1-2 days Time of Disposition: 03:15
--- NOTE | 2018-11-07 02:23 | CT ---
EXAM: CT Abdomen and Pelvis With Intravenous Contrast CLINICAL HISTORY: ITS.REASON CT Reason: Pain TECHNIQUE: Axial computed tomography images of the abdomen and pelvis with intravenous contrast. CTDI is 21.5 mGy and DLP is 1038.9 mGy-cm. This CT exam was performed using one or more of the following dose reduction techniques: automated exposure control, adjustment of the mA and/or kV according to patient size, and/or use of iterative reconstruction technique. COMPARISON: 12/31/2016 FINDINGS: Lung bases: Unremarkable. No mass. No consolidation. ABDOMEN: Liver: Unremarkable. No mass. Gallbladder and bile ducts: There is minimal scattered pneumobilia noted within the liver. No evidence for biliary dilatation. Status post cholecystectomy. Pancreas: Unremarkable. No mass. No ductal dilation. Spleen: Unremarkable. No splenomegaly. Adrenals: Unremarkable. No mass. Kidneys and ureters: The kidneys demonstrate normal enhancement without hydronephrosis or definite renal collecting stones. Delayed phase imaging demonstrates normal excreted contrast in the renal collecting systems. Stomach and bowel: There are multiple fluid distended loops of small bowel noted within the abdomen and pelvis. No definitive focal transition point is identified. However, there is relative asymmetric decompression of the distal small bowel. There is interval postsurgical suture material noted involving the sigmoid colon. Scattered diverticula are noted involving the distal transverse and descending colon. The stomach is prominently distended with fluid and gas. However, the esophagus is decompressed without evidence of high-grade gastric obstruction. No definite significant focal mucosal thickening. PELVIS: Appendix: No findings to suggest acute appendicitis. Bladder: Unremarkable. No mass. Reproductive: Unremarkable as visualized. ABDOMEN and PELVIS: Intraperitoneal space: Unremarkable. No free air. No significant fluid collection. Bones/joints: Multilevel degenerative changes of the inferior thoracic and lumbar spine. No acute fracture. No dislocation. Soft tissues: Unremarkable. Vasculature: Unremarkable. No abdominal aortic aneurysm. Lymph nodes: Unremarkable. No enlarged lymph nodes. IMPRESSION: 1. There are multiple fluid distended loops of small bowel noted within the abdomen and pelvis. No definitive focal transition point is identified. However, there is relative asymmetric decompression of the distal small bowel. This may represent enteritis. However, a subtle partial small bowel obstruction is difficult to entirely exclude given this appearance. Serial radiographic evaluation or small bowel follow- through may be helpful. No bowel perforation or free intraperitoneal fluid identified. 2. There is minimal scattered pneumobilia noted within the liver. No evidence for biliary dilatation. Please correlate clinically for potential prior endoscopic evaluation or intervention at the ampulla. Status post cholecystectomy.
[2018-11-07] MEDS ORDERED: MORPHINE SULFATE 4 MG/ML SYRINGE IVP STA (03:07)
[2018-11-07] MEDS ORDERED: HYDROmorphone 0.5 MG/0.5 ML SYRINGE IVP STA (03:10)
[2018-11-07 03:23] VITALS: BP 156/90; PULSE 100; TEMP 98.7
[2018-11-07 03:38] LABS: Appearance,Urine Cloudy (Clear); Bilirubin,Urine Negative (Negative); Blood,Urine Small (Negative); Color,Urine Yellow; Glucose,Urine (UA) Negative (Negative); Hyaline Casts,Urine 21 /lpf (0-2); Ketones,Urine Negative (Negative); Leukocyte Esterase,Urine Negative (Negative); Mucus,Urine Few /hpf; Nitrite,Urine Negative (Negative); Protein,Urine 3+ (Negative); RBC,Urine 1 /hpf (0-5); Specific Gravity,Urine 1.014 (1.001-1.035); Sperm,Urine Moderate /hpf; Urobilinogen,Urine <2.0 mg/dL (<2.0); WBC,Urine 2 /hpf (0-5)
== END 2018-11-07 03:32 | disposition home or self-care (01) ==
LOC: EC 23:57
DX: R11.2 Nausea with vomiting, unspecified (principal); R19.7 Diarrhea, unspecified; R10.32 Left lower quadrant pain; R00.0 Tachycardia, unspecified; K76.89 Other specified diseases of liver; I25.10 Atherosclerotic heart disease of native coronary artery without angina pectoris; I25.2 Old myocardial infarction; E11.22 Type 2 diabetes mellitus with diabetic chronic kidney disease; I12.9 Hypertensive chronic kidney disease with stage 1 through stage 4 chronic kidney disease, or unspecified chronic kidney disease; N18.3 Chronic kidney disease, stage 3 (moderate); E78.5 Hyperlipidemia, unspecified; F41.9 Anxiety disorder, unspecified; M79.7 Fibromyalgia; M10.9 Gout, unspecified; Z79.82 Long term (current) use of aspirin; Z79.899 Other long term (current) drug therapy; Z88.0 Allergy status to penicillin; Z88.6 Allergy status to analgesic agent; Z88.8 Allergy status to other drugs, medicaments and biological substances; Z91.048 Other nonmedicinal substance allergy status; Z95.5 Presence of coronary angioplasty implant and graft
CPT/HCPCS: 36415; 80053; 83690; 85025; 81001; 74177; 99284; 96374; 96375 ×2; 96361 ×3; J2270; J2405; J1170; Q9967

== ENCOUNTER 2018-11-07 17:44 | Inpatient (IN) | payer MEDICARE, BC ==
[2018-11-07] MEDS ORDERED: ONDANSETRON 4 MG/2 ML VIAL IVP STA (18:10)
[2018-11-07] MEDS ORDERED: HYDROmorphone 0.5 MG/0.5 ML SYRINGE IVP STA (18:10)
[2018-11-07] MEDS ORDERED: SODIUM CHLORIDE 0.9% 500 ML 500 ML IV STA (18:10)
--- NOTE | 2018-11-07 18:15 | ED ---
General Adult HPI - General Chief complaint: Abdominal Pain Stated complaint: abd pain Time Seen by Provider: 11/07/18 18:05 Source: patient, RN notes reviewed Mode of arrival: ambulatory Limitations: no limitations - History of Present Illness Initial comments: 73-year-old male with a past medical history of CAD, diabetes myelitis, fibromyalgia, hyperlipidemia, hypertension, [place], renal disease, diverticulitis with colon resection as well as cholecystectomy in 2017 presents to the emergency determine for diffuse abdominal pain x 2 days. Patient states that this started 2 nights ago after he ate some bad food. States he had diffuse abdominal pain with bloating and had vomiting and diarrhea. Patient was seen here in the emergency department and felt better afterwards with pain medication and was discharged home. Patient states he felt good throughout the evening yesterday and then his pain returned. States his vomiting is improving he is s till nauseous. Patient has had one episode of vomiting today as well as one episode of diarrhea. However patient is concerned about this diffuse abdominal pain with his many Occasions in the past. He admits to a fever of 100.5 at home.Patient has no other complaints at this time including shortness of breath, chest pain, headache, or visual changes. - Related Data Home Medications Medication Instructions Recorded Confirmed Allopurinol [Zyloprim] 100 mg PO BID 09/25/16 05/23/17 Aspirin [Adult Low Dose Aspirin EC] 162 mg PO DAILY 09/25/16 05/23/17 Carvedilol [Coreg] 25 mg PO BID 09/25/16 05/23/17 DULoxetine HCL [Cymbalta] 60 mg PO DAILY 09/25/16 05/23/17 Ergocalciferol [Vitamin D2 50,000 unit PO Q14D 09/25/16 05/23/17 (DRISDOL)] Furosemide [Lasix] 20 mg PO SUTUWETHSA 09/25/16 05/23/17 LORazepam [Ativan] 1 mg PO TID PRN 09/25/16 05/23/17 Liraglutide [Victoza 2-Seferino] 0.6 mg SQ DAILY 09/25/16 05/23/17 Lisinopril [Zestril] 40 mg PO DAILY 09/25/16 05/23/17 Multivitamins, Thera [Multivitamin 1 tab PO DAILY 09/25/16 05/23/17 (formulary)] Nitroglycerin Sl Tabs [Nitrostat] 0.4 mg SUBLINGUAL Q5M PRN 09/25/16 05/23/17 Nortriptyline HCl [Pamelor] 50 mg PO HS 09/25/16 05/23/17 [place]-3/Dha/Epa/Fish Oil [Fish Oil 1 cap PO DAILY 09/25/16 05/23/17 1,360 mg Softgel] Rosuvastatin [Crestor] 10 mg PO HS 09/25/16 05/23/17 Ubidecarenone [Co Q-10] 100 mg PO DAILY 09/25/16 05/23/17 Furosemide [Lasix] 40 mg PO MOFR 11/11/16 05/23/17 Acetaminophen [Tylenol Extra 500 mg PO DAILY PRN 01/31/17 05/23/17 Strength] traMADol HCl [Ultram] 50 mg PO Q6H PRN 02/02/17 05/23/17 Terazosin HCl 5 mg PO HS 05/23/17 05/23/17 Previous Rx's Medication Instructions Recorded Meclizine [Antivert] 12.5 mg PO TID PRN #30 tab 05/24/17 Dicyclomine [Bentyl] 10 mg PO QID PRN #15 capsule 11/07/18 Ondansetron [Zofran ODT] 4 mg PO Q8HR PRN #15 tab 11/07/18 Allergies Allergy/AdvReac Type Severity Reaction Status Date / Time adhesive tape Allergy Rash/Hives Verified 11/07/18 17:51 Penicillins Allergy Itching Verified 11/07/18 17:51 NSAIDS (Non-Steroidal AdvReac Unknown UNABLE TO Verified 11/07/18 17:51 Anti-Inflamma TAKE DUE TO KIDNEY DISEASE. prednisone AdvReac DEPRESSION Verified 11/07/18 17:51 WITH LARGE DOSES Review of Systems ROS Statement: Those systems with pertinent positive or pertinent negative responses have been documented in the HPI. ROS Other: All systems not noted in ROS Statement are negative. 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 Last Myocardial Infarction Date:: 2010 History of Any Multi-Drug Resistant Organisms: None Reported Past Surgical History: Appendectomy, Bowel Resection, Cholecystectomy, Heart Catheterization With Stent Additional Past Surgical History / Comment(s): Colon Resection Feb 2017 Past Anesthesia/Blood Transfusion Reactions: No Reported Reaction, Motion Sickness Date of Last Stent Placement:: 2010 Past Psychological History: Anxiety Smoking Status: Never smoker Past Alcohol Use History: None Reported Past Drug Use History: None Reported - Past Family History Father Family Medical History: Blood Disorder Mother Family Medical History: Cancer Additional Family Medical History / Comment(s): Melanoma General Exam Limitations: no limitations General appearance: alert, in no apparent distress Head exam: Present: atraumatic, normocephalic, normal inspection Eye exam: Present: normal appearance, PERRL, EOMI. Absent: scleral icterus, conjunctival injection, periorbital swelling ENT exam: Present: normal exam, mucous membranes moist Neck exam: Present: normal inspection, full ROM. Absent: tenderness, meningismus, lymphadenopathy Respiratory exam: Present: normal lung sounds bilaterally. Absent: respiratory distress, wheezes, rales, rhonchi, stridor Cardiovascular Exam: Present: regular rate, normal rhythm, normal heart sounds. Absent: systolic murmur, diastolic murmur, rubs, gallop, clicks GI/Abdominal exam: Present: soft, distended, tenderness (Generalized abdominal tenderness without guarding or rebound.), normal bowel sounds. Absent: guarding, rebound, rigid Neurological exam: Present: alert, oriented X3, CN II-XII intact Psychiatric exam: Present: normal affect, normal mood Course Vital Signs 11/07/18 17:49 Temperature 99.3 F Pulse Rate 107 H Respiratory 20 Rate Blood Pressure 155/83 O2 Sat by Pulse 93 L Oximetry Medical Decision Making - Medical Decision Making 73-year-old male presents to the emergency department for abdominal pain associated with nausea and vomiting as well as diarrhea 3 days. Patient did have an episode of diarrhea today was one episode of vomiting but this did improve significantly since yesterday. On exam patient has distention of the abdomen with generalized diffuse tenderness. CBC is unremarkable. CMP shows a creatinine of 1.60 likely secondary to patient's stage III kidney [address] of the abdomen yesterday showed enteritis versus possible partial small bowel obstruction as well as pneumobilia. Patient does have a history of cholecyst[place] [address] Anaya. X-ray today shows a partial small bowel obstruction pattern appearing mildly more advanced than the prior study. She is not vomiting at this time. Patient will be admitted for pain management as well as partial small bowel obstruction. Surgery will be consulted. Patient started on Zosyn given low-grade fever at home. - Lab Data Result diagrams: 11/07/18 18:13 11/07/18 18:13 Lab Results 11/07/18 11/07/18 11/07/18 Range/Units 18:13 18:13 18:13 WBC 6.7 (3.8-10.6) k/uL RBC 5.20 (4.30-5.90) m/uL Hgb 16.0 (13.0-17.5) gm/dL Hct 47.2 (39.0-53.0) % MCV 90.9 (80.0-100.0) fL MCH 30.8 (25.0-35.0) pg MCHC 33.9 (31.0-37.0) g/dL RDW 14.0 (11.5-15.5) % Plt Count 155 (150-450) k/uL Neutrophils % 61 % Lymphocytes % 19 % Monocytes % 13 % Eosinophils % 3 % Basophils % 0 % Neutrophils # 4.1 (1.3-7.7) k/uL Lymphocytes # 1.2 (1.0-4.8) k/uL Monocytes # 0.9 (0-1.0) k/uL Eosinophils # 0.2 (0-0.7) k/uL Basophils # 0.0 (0-0.2) k/uL Sodium 138 (137-145) mmol/L Potassium 4.6 (3.5-5.1) mmol/L Chloride 105 (98-107) mmol/L Carbon Dioxide 22 (22-30) mmol/L Anion Gap 11 mmol/L BUN 27 H (9-20) mg/dL Creatinine 1.60 H (0.66-1.25) mg/dL Est GFR (CKD-EPI)AfAm 49 (>60 ml/min/1.73 sqM) Est GFR (CKD-EPI)NonAf 42 (>60 ml/min/1.73 sqM) Glucose 207 H (74-99) mg/dL Plasma Lactic Acid Axel 1.1 (0.7-2.0) mmol/L Calcium 9.2 (8.4-10.2) mg/dL Total Bilirubin 0.9 (0.2-1.3) mg/dL AST 20 (17-59) U/L ALT 28 (21-72) U/L Alkaline Phosphatase 74 (38-126) U/L Total Protein 7.1 (6.3-8.2) g/dL Albumin 4.1 (3.5-5.0) g/dL Amylase 44 (30-110) U/L Lipase 62 (23-300) U/L Disposition Clinical Impression: Partial small bowel obstruction, Enteritis, Pneumobilia Disposition: ADMITTED IP TO THIS HOSP Condition: Fair Referrals: Arnaud Gonsalez MD [Primary Care Provider] - 1-2 days Time of Disposition: 20:18
[2018-11-07 18:21] LABS: Basophils % (A) 0 %; Eosinophils # (A) 0.2 k/uL (0-0.7); Eosinophils % (A) 3 %; HCT 47.2 % (39.0-53.0); Lymphocytes # (A) 1.2 k/uL (1.0-4.8); Lymphocytes % (A) 19 %; MCH 30.8 pg (25.0-35.0); MCHC 33.9 g/dL (31.0-37.0); MCV 90.9 fL (80.0-100.0); Mean Platelet Volume 7.5; Monocytes # (A) 0.9 k/uL (0-1.0); Monocytes % (A) 13 %; Neutrophils # (A) 4.1 k/uL (1.3-7.7); Neutrophils % (A) 61 %; Platelet Count 155 k/uL (150-450); WBC 6.7 k/uL (3.8-10.6)
[2018-11-07 18:28] LABS: Appearance,Urine Clear (Clear); Bacteria,Urine Rare /hpf; Bilirubin,Urine Negative (Negative); Blood,Urine Small (Negative); Color,Urine Yellow; Glucose,Urine (UA) 2+ (Negative); Ketones,Urine Negative (Negative); Leukocyte Esterase,Urine Negative (Negative); Nitrite,Urine Negative (Negative); Protein,Urine 3+ (Negative); RBC,Urine 1 /hpf (0-5); Specific Gravity,Urine 1.016 (1.001-1.035); Urobilinogen,Urine <2.0 mg/dL (<2.0); WBC,Urine <1 /hpf (0-5)
[2018-11-07 18:30] LABS: Albumin 4.1 g/dL (3.5-5.0); Calcium 9.2 mg/dL (8.4-10.2); Potassium 4.6 mmol/L (3.5-5.1); Total Bilirubin 0.9 mg/dL (0.2-1.3); Total Protein 7.1 g/dL (6.3-8.2)
--- NOTE | 2018-11-07 20:02 | XR ---
EXAMINATION TYPE: XR abdomen 3V DATE OF EXAM: 11/07/2018 at 6:57 PM COMPARISON: CT 11/07/2018 at 1:49 AM HISTORY: Pain TECHNIQUE: Upright and 2 supine views FINDINGS: The stomach remains prominently distended with fluid and gas, similar to the prior study. The small bowel loops which were dilated on the prior study are mildly increased in caliber presently . There is a small volume of gas within what appears to be the ascending colon. Gas is not seen through out the transverse, descending, or rectosigmoid. There is no evident pneumatosis or pneumoperitoneum. No acute skeletal or soft tissue findings. IMPRESSION: Partial small bowel obstruction pattern, appearing mildly more advanced than the prior study.
[2018-11-07] MEDS ORDERED: PIPERACILLIN-TAZOBACTAM 3.375 GM in SODIUM CHLORIDE 0.9% 100 ML IVPB STA (20:14)
[2018-11-07] MEDS ORDERED: NALOXONE 0.4 MG/ML 1 ML VIAL IV PRN (20:18)
[2018-11-07] MEDS ORDERED: ALPRAZolam 0.25 MG TAB PO PRN (20:33)
[2018-11-07] MEDS ORDERED: TEMAZEPAM 15 MG CAP PO PRN (20:33)
[2018-11-07] MEDS ORDERED: METOCLOPRAMIDE 5 MG/ML 2 ML VIAL IVP STA (20:42)
[2018-11-07] MEDS: HYDROmorphone 0.5 MG/0.5 ML SYRINGE IVP PRN ×2 (20:47→23:47)
[2018-11-07] MEDS: SODIUM CHLORIDE 0.9% 1,000 ML IV SCH (20:55)
[2018-11-07] MEDS ORDERED: LEVOFLOXACIN 500MG-D5W PMX 500 MG in DEXTROSE/WATER 1 100ML.BAG IVPB SCH (22:00)
--- NOTE | 2018-11-07 22:05 | HP ---
HISTORY AND PHYSICAL DATE OF SERVICE: 11/07/2018 CHIEF COMPLAINT: Abdominal pain, nausea, vomiting, diarrhea. HISTORY OF PRESENT ILLNESS: This 73-year-old gentleman with a past medical history of multiple medical issues including CAD, diabetes, hypertension, hyperlipidemia, myocardial infarction, history of appendectomy, bowel resection, history of CAD/stent being followed by Dr. Arnaud Gonsalez in the outpatient setting apparently had lasagna from one of the [place] restaurants which only the patient took and subsequently patient had abdominal pain, nausea and diarrhea. Patient came to the ER last night because of increased symptoms. CT scan was done last night. The CT of the abdomen showed multiple fluid distention, possible enteritis and also pneumobilia was also noted. Please note, patient had previous cholecystectomy. There is no history of fever, rigors or chills. No history of headache, loss of consciousness, or seizures. Because of recurrence, the patient came to [facility] and has been admitted for further evaluation and treatment. There is no history of fever, rigors, chills at this time. PAST MEDICAL HISTORY: History of diabetes, hypertension, hyperlipidemia, history of fibromyalgia, history of bowel resection, appendectomy, anxiety. MEDICATIONS: Home medications are: 1. Ultram 50 mg q.6h p.r.n. 2. Coenzyme Q 100 mg p.o. daily. 3. Terazosin 5 mg q.h.s. 4. Crestor 10 mg q.h.s. 5. Zofran 4 mg q.8 p.r.n. 6. Fish oil 1 daily. 7. Pamelor 50 mg p.o. q.h.s. 8. Nitrostat 0.4 sublingual p.r.n. 9. Multivitamins one p.o. daily. 10.Antivert 12.5 mg t.i.d. p.r.n. 11.Zestril 40 mg p.o. daily. 12.Victoza 0.6 mg subcu daily. 13.Ativan 1 mg t.i.d. p.r.n. 14.Lasix 40 mg Monday, Monday. 15.Lasix 20 mg Monday, Monday, Monday, , Monday. 16.Drisdol 93908 Q 14 days. 17.Bentyl 10 mg q.i.d. p.r.n. 18.Cymbalta 60 mg p.o. daily. 19.Coreg 25 mg p.o. b.i.d. 20.Aspirin 160 mg p.o. daily. 21.Zyloprim 100 mg p.o. b.i.d. 22.Tylenol 500 mg daily p.r.n. ALLERGIES: ADHESIVE TAPES, PENICILLINS, NSAIDS, PREDNISONE. FAMILY HISTORY: History of melanoma. History of blood disorder. SOCIAL HISTORY: No history of smoking. No history of alcohol. REVIEW OF SYSTEMS: ENT: No diminished vision. No diminished hearing. CARDIOVASCULAR: No angina or palpitations. RESPIRATIONS: No cough or hemoptysis. GI as mentioned earlier. no dysuria or hematuria. CENTRAL NERVOUS SYSTEM: No numbness or weakness. ALLERGY/IMMUNOLOGY: No asthma or hayfever. MUSCULOSKELETAL as mentioned earlier. HEMATOLOGY/ONCOLOGY: No history of anemia. ENDOCRINE: History of diabetes. CONSTITUTIONAL: As mentioned earlier. DERMATOLOGY negative. RHEUMATOLOGY: Negative. PSYCHIATRY as mentioned earlier. PHYSICAL EXAMINATION: The patient is alert oriented x3. Pulse is 104. Blood pressure 161/83, respiration 16, temperature 100.5, pulse ox 94% on room air. HEENT: Conjunctivae normal. Oral mucosa moist. NECK is no jugular venous distention. No carotid bruit. No lymph node enlargement. CARDIOVASCULAR: S1, S2 muffled. No S3, no S4. RESPIRATORY: Breath sounds diminished in the bases. No rhonchi. No crackles. ABDOMEN: Soft. Mild diffuse discomfort on palpation. No guarding. No rigidity. No mass palpable. LEGS no edema. No swelling. NERVOUS SYSTEM: Higher functions as mentioned earlier. Moves all four limbs. No focal motor or sensory deficits. Lymphatics: No lymph nodes palpable in the neck, axillae or groin. SKIN: No ulcer, rash or bleeding. JOINTS: No active deforming arthropathy. LABS: At this time shows WBC 6.2, hemoglobin 16, and creatinine is 1.6. ASSESSMENT: 1. Abdominal pain, nausea, vomiting, diarrhea, possible acute enteritis secondary to food poisoning. 2. Increased creatinine with possible acute renal failure secondary from dehydration. 3. History of coronary artery disease. 4. Diabetes mellitus type 2. 5. Fibromyalgia. 6. Hypertension. 7. Hyperlipidemia. 8. History of myocardial infarction. 9. History of transient global amnesia. 10.History of gout. 11.History of focal segmental glomerulosclerosis. 12.History of diverticulitis. 13.History of stage 3 kidney disease. 14.History of coronary artery disease/ stent. 15.History of anxiety. RECOMMENDATIONS AND DISCUSSION: In this 73-year-old gentleman who presented with multiple complex medical issues, we will monitor the patient closely. Continue the current management and symptomatic treatment. I recommend broad-spectrum IV antibiotics and I would also recommend infectious disease evaluation and as well as surgery evaluation. The possibility of partial small bowel obstruction was also considered. The cultures were obtained including the stool culture. Home medications will be continued and a copy of this dictation will be forwarded to Dr. Arnaud Gonsalez who is the primary physician. MMODL / IJN: [id number] /
[2018-11-07 22:36] VITALS: BMI 28.8
[2018-11-07] MEDS: ONDANSETRON 4 MG/2 ML VIAL IVP PRN (23:47)
[2018-11-07] MEDS: PANTOPRAZOLE 40 MG/10 ML VIAL IVP SCH (23:48)
[2018-11-07] MEDS: metroNIDAZOLE-NS PMX 500 MG in SALINE 1 100ML.BAG IVPB SCH (23:48)
[2018-11-07] MEDS: HEPARIN SODIUM,PORCINE 5,000 UNIT/ML 1 ML VIAL SQ SCH (23:48)
[2018-11-08] MEDS: HYDROmorphone 0.5 MG/0.5 ML SYRINGE IVP PRN ×5 (03:12→23:44)
[2018-11-08] MEDS: metroNIDAZOLE-NS PMX 500 MG in SALINE 1 100ML.BAG IVPB SCH ×3 (05:38→22:19)
[2018-11-08] MEDS: SODIUM CHLORIDE 0.9% 1,000 ML IV SCH ×2 (05:39→11:24)
[2018-11-08] MEDS ORDERED: ACETAMINOPHEN TAB 500 MG TAB PO PRN (05:55)
[2018-11-08] MEDS ORDERED: NITROGLYCERIN SL TABS 0.4 MG TAB SUBLINGUAL PRN (05:55)
[2018-11-08 07:11] LABS: Glucose,Whole Blood 122 mg/dL (75-99)
[2018-11-08] MEDS: ALLOPURINOL 100 MG TAB PO SCH ×2 (07:48→21:38)
[2018-11-08] MEDS: DULoxetine HCL 60 MG CAPSULE.DR PO SCH (07:48)
[2018-11-08] MEDS: ONDANSETRON 4 MG/2 ML VIAL IVP PRN (07:49)
[2018-11-08] MEDS: MULTIVITAMINS, THERA 1 EACH TAB PO SCH (07:49)
[2018-11-08] MEDS: HEPARIN SODIUM,PORCINE 5,000 UNIT/ML 1 ML VIAL SQ SCH ×2 (07:49→22:19)
[2018-11-08] MEDS: PANTOPRAZOLE 40 MG/10 ML VIAL IVP SCH ×2 (07:49→22:19)
[2018-11-08] MEDS: CARVEDILOL 12.5 MG TAB PO SCH ×2 (07:50→14:56)
[2018-11-08] MEDS ORDERED: FUROSEMIDE 20 MG TAB PO SCH (09:00)
[2018-11-08] MEDS ORDERED: OMEGA PO SCH (09:00)
[2018-11-08] MEDS ORDERED: ASPIRIN 81 MG PO SCH (09:00)
[2018-11-08] MEDS ORDERED: EPA PO SCH (09:00)
[2018-11-08] MEDS ORDERED: DHA PO SCH (09:00)
[2018-11-08] MEDS ORDERED: MECLIZINE 12.5 MG TAB PO PRN (09:00)
[2018-11-08] MEDS ORDERED: traMADol 50 MG TAB PO PRN (09:00)
[2018-11-08] MEDS ORDERED: NON FORMULARY DRUG (Liraglutide [Victoza 2-Pak] 0.6 MG) SQ SCH (09:00)
[2018-11-08] MEDS ORDERED: FISH OIL PO SCH (09:00)
[2018-11-08] MEDS ORDERED: DICYCLOMINE 10 MG CAP PO PRN (09:00)
[2018-11-08] MEDS ORDERED: NON FORMULARY DRUG (Ubidecarenone [Co Q-10] 100 MG) PO SCH (09:00)
[2018-11-08] MEDS ORDERED: LISINOPRIL 20 MG TAB PO SCH (09:00)
[2018-11-08 09:57] LABS: Calcium 8.1 mg/dL (8.4-10.2); Potassium 4.9 mmol/L (3.5-5.1)
[2018-11-08 10:00] LABS: Basophils % (A) 0 %; Eosinophils # (A) 0.2 k/uL (0-0.7); Eosinophils % (A) 3 %; HCT 41.6 % (39.0-53.0); HGB 13.2 gm/dL (13.0-17.5); Lymphocytes # (A) 1.2 k/uL (1.0-4.8); Lymphocytes % (A) 22 %; MCH 29.9 pg (25.0-35.0); MCHC 31.6 g/dL (31.0-37.0); MCV 94.6 fL (80.0-100.0); Monocytes # (A) 0.8 k/uL (0-1.0); Monocytes % (A) 13 %; Neutrophils # (A) 3.2 k/uL (1.3-7.7); Neutrophils % (A) 57 %; Platelet Count 134 k/uL (150-450); RDW 15.6 % (11.5-15.5); WBC 5.6 k/uL (3.8-10.6)
[2018-11-08] MEDS: IOPAMIDOL CONTRAST (ORAL USE) VIAL PO PRN ×2 (10:33→11:23)
[2018-11-08] MEDS ORDERED: SODIUM CHLORIDE 0.9% 500 ML 500 ML IV ONE (11:12)
[2018-11-08 12:37] LABS: Glucose,Whole Blood 144 mg/dL (75-99)
--- NOTE | 2018-11-08 13:06 | CT ---
EXAMINATION TYPE: CT abdomen pelvis wo con DATE OF EXAM: 11/08/2018 COMPARISON: 11/07/2018 HISTORY: Abnormal prior CT. CT DLP: 650.8 mGycm Automated exposure control for dose reduction was used. TECHNIQUE: Helical acquisition of images was performed from the lung bases through the pelvis. FINDINGS: LUNG BASES: There is bilateral lower lobe consolidation and small effusion. Heart is enlarged.. Coron smiley artery calcification noted. LIVER/GB: Status post cholecystectomy. Previously noted pneumobilia is not seen on today's exam. PANCREAS: No significant abnormality is seen. SPLEEN: No significant abnormality is seen. ADRENALS: No significant abnormality is seen. KIDNEYS: The kidneys demonstrate normal enhancement without hydronephrosis or definite renal collecti ng stones. Delayed phase imaging demonstrates normal excreted contrast in the renal collecting system s. ADENOPATHY: None visualized. OSSEOUS STRUCTURES: Hypertrophic and degenerative change of the spine BOWEL: There are multiple fluid distended loops of small bowel noted within the abdomen and pelvis. No definitive focal transition point is identified. However, there is relative asymmetric decompressi on of the distal small bowel. There is interval postsurgical suture material noted involving the sigm oid colon. Scattered diverticula are noted involving the distal transverse and descending colon. The stomach is prominently distended with fluid and gas. And there may be air within the wall of the stom ach. Correlate for emphysematous gastritis. Report immediately called to the called to patient's nurse on 11/08/2018 12:59 PM. There does appear to be a localized small bowel wall thickening. There is relative decompression of t he left colon. Question previous surgery within the left colon. OTHER: Small amount of free fluid in the pelvis. IMPRESSION: 1. Findings are suspicious for air within the wall of the stomach suggestive of emphysematous gastrit is. Finding immediately called to the patient's nurse. 2. Persistent dilated small bowel loops with localized areas of wall thickening correlate for partial obstruction. Ileus or enteritis in the differential diagnosis.
--- NOTE | 2018-11-08 13:27 | P.NPCON ---
History of Present Illness - Reason for Consult acute renal failure, chronic renal failure - History of Present Illness Reason for consultation: Acute kidney injury on chronic kidney disease History of present illness: Patient is a 73-year-old male seen in consultation for acute kidney injury on chronic kidney disease. Patient has chronic kidney disease stage III with baseline creatinine in the range of 1.6-2 secondary to biopsy-proven FSGS. Patient presented to the hospital with nausea vomiting and diarrhea which has been going on for the last 3-4 days. [facility] and at that time underwent a CT with IV contrast as well. Patient was subsequently discharged as his symptoms had improved. However when he got home patient developed vomiting and diarrhea again and came back to the hospital. He underwent CAT scan of the abdomen and pelvis with oral contrast this morning which revealed no evidence of hydronephrosis. However findings were concerning for emphysematous gastritis. An NG tube will be placed. Surgery is following. He has been voiding. No hematuria or dysuria. He is currently complaining of diarrhea. He's having a bowel movement almost every hour. Patient's blood pressure is also on the lower side. Lisinopril is held. He is currently maintained on IV fluids. Denies use of nonsteroidals. Vital signs are stable. General: The patient appeared well nourished and normally developed. HEENT: Head exam is unremarkable. Neck is without jugular venous distension. LUNGS: Lungs are clear to auscultation and percussion. Breath sounds decreased. HEART: Rate and Rhythm are regular. First and second heart sounds normal. No murmurs, rubs or gallops. ABDOMEN: Bowel sounds decreased. Diffuse tenderness. EXTREMITITES: No clubbing, cyanosis, or edema. Past Medical History Past Medical History: Coronary Artery Disease (CAD), Diabetes Mellitus, Fibromyalgia, Hyperlipidemia, Hypertension, Myocardial Infarction ([place]), Renal Disease, Syncope Additional Past Medical History / Comment(s): Transient global amnesia for 1 day and again on second occasion for 20 mins, GOUT, FOCAL SEGMENTAL GLOMERULOSCLEROSIS (FSG- NAME OF RENAL DX), DIVERTICULITIS., STAGE 3 A KIDNEY D ISEASE -30% LOSS OF KIDNEY FUNCTION. Last Myocardial Infarction Date:: 2010 History of Any Multi-Drug Resistant Organisms: None Reported Past Surgical History: Appendectomy, Bowel Resection, Cholecystectomy, Heart Catheterization With Stent Additional Past Surgical History / Comment(s): Colon Resection Feb 2017 Past Anesthesia/Blood Transfusion Reactions: No Reported Reaction, Motion Sickness Date of Last Stent Placement:: 2010 Past Psychological History: Anxiety Smoking Status: Never smoker Past Alcohol Use History: None Reported Past Drug Use History: None Reported - Past Family History Father Family Medical History: Blood Disorder Mother Family Medical History: Cancer Additional Family Medical History / Comment(s): Melanoma Medications and Allergies Home Medications Medication Instructions Recorded Confirmed Type Allopurinol [Zyloprim] 100 mg PO BID 09/25/16 11/07/18 History Aspirin [Adult Low Dose Aspirin EC] 162 mg PO DAILY 09/25/16 11/07/18 History Carvedilol [Coreg] 25 mg PO BID 09/25/16 11/07/18 History DULoxetine HCL [Cymbalta] 60 mg PO DAILY 09/25/16 11/07/18 History Ergocalciferol [Vitamin D2 50,000 unit PO Q14D 09/25/16 11/07/18 History (DRISDOL)] Furosemide [Lasix] 20 mg PO SUTUWETHSA 09/25/16 11/07/18 History LORazepam [Ativan] 1 mg PO TID PRN 09/25/16 11/07/18 History Liraglutide [Victoza 2-Seferino] 0.6 mg SQ DAILY 09/25/16 11/07/18 History Lisinopril [Zestril] 40 mg PO DAILY 09/25/16 11/07/18 History Multivitamins, Thera [Multivitamin 1 tab PO DAILY 09/25/16 11/07/18 History (formulary)] Nitroglycerin Sl Tabs [Nitrostat] 0.4 mg SUBLINGUAL Q5M PRN 09/25/16 11/07/18 History Nortriptyline HCl [Pamelor] 50 mg PO HS 09/25/16 11/07/18 History [place]-3/Dha/Epa/Fish Oil [Fish Oil 1 cap PO DAILY 09/25/16 11/07/18 History 1,360 mg Softgel] Rosuvastatin [Crestor] 10 mg PO HS 09/25/16 11/07/18 History Ubidecarenone [Co Q-10] 100 mg PO DAILY 09/25/16 11/07/18 History Furosemide [Lasix] 40 mg PO MOFR 11/11/16 11/07/18 History Acetaminophen [Tylenol Extra 500 mg PO DAILY PRN 01/31/17 11/07/18 History Strength] traMADol HCl [Ultram] 50 mg PO BID PRN 02/02/17 11/07/18 History Meclizine [Antivert] 12.5 mg PO TID PRN #30 tab 05/24/17 11/07/18 Rx Dicyclomine [Bentyl] 10 mg PO QID PRN #15 capsule 11/07/18 11/07/18 Rx Ondansetron [Zofran ODT] 4 mg PO Q8HR PRN #15 tab 11/07/18 11/07/18 Rx Terazosin HCl 2 mg PO HS 11/07/18 11/07/18 History Allergies Allergy/AdvReac Type Severity Reaction Status Date / Time adhesive tape Allergy Rash/Hives Verified 11/07/18 20:46 Penicillins Allergy Itching Verified 11/07/18 20:46 NSAIDS (Non-Steroidal AdvReac Unknown UNABLE TO Verified 11/07/18 20:46 Anti-Inflamma TAKE DUE TO KIDNEY DISEASE. prednisone AdvReac DEPRESSION Verified 11/07/18 20:46 WITH LARGE DOSES Physical Exam Vitals: Vital Signs Temp Pulse Pulse Resp BP BP Pulse Ox 11/08/18 05:15 99.1 F 99 16 90/55 92 L 11/07/18 22:30 98.8 F 107 H 16 155/84 93 L 11/07/18 21:42 100.0 F H 108 H 16 130/79 91 L 11/07/18 20:25 100.5 F H 104 H 16 161/86 94 L 11/07/18 17:49 99.3 F 107 H 20 155/83 93 L Intake and Output 11/07/18 11/08/18 11/08/18 22:59 06:59 14:59 Intake Total 500 Balance 500 Intake: Amount of Fluid Infused ( 500 ml) Other: Voiding Method Toilet Toilet # Voids 2 # Bowel Movements 2 Weight 86.183 kg Results - Lab Results Most recent lab results Calcium 8.1 mg/dL (8.4-10.2) L 11/08/18 08:52 11/08/18 08:52 11/08/18 08:52 Assessment and Plan Plan: Assessment: 1. Acute kidney injury secondary to ATN secondary to intravascular volume depletion from vomiting and diarrhea and further worsened with the use of lisin opril and diuretics. Patient also received IV contrast on November 06 which is also a contributing factor. Creatinine 2.37 today. 2. Chronic kidney disease stage III secondary to FSGS with baseline creatinine in the range of 1.62. 3. Nausea vomiting and diarrhea which suspicion for emphysematous gastritis. Surgery following. 4. Hypertension with chronic kidney disease. Blood pressure on the lower side. Plan: Maintain normal saline at 100 mL an hour. Hold lisinopril and Lasix. Hold cardura for systolic blood pressure less than 120. Repeat electrolytes in the morning. Follow-up cultures. Thank you for the consultation. I will continue to follow the patient with you during his hospital stay.
--- NOTE | 2018-11-08 14:12 | XR ---
Abdomen HISTORY: NG tube placement Single abdomen submitted Relation to prior abdomen 11/07/2018 or is been interval placement of an NG tube which is overlying the stomach. Contrast material seen within the colon. Air-fluid levels have likely improved. IMPRESSION: Interval NG tube placement.
--- NOTE | 2018-11-08 16:40 | P.GSCN ---
History of Present Illness Consult date: 11/08/18 Reason for Consult: SBO Requesting physician: Ludin Merritt History of present illness: CHIEF COMPLAINT: Abdominal pain HISTORY OF PRESENT ILLNESS: 73-year-old male who presented to emergency room with a chief complaint of abdominal pain. Patient reports the pa in started approximately 3 days ago and he initially thought he had food poisoning. He was evaluated in the emergency department on 11/06/2018. He was subsequently discharged home. The patient reports he began having increased abdominal pain. Reports nausea and episodes of emesis. He reports increased abdominal distention and bloating. Patient febrile in the emergency room with a temperature of 100.5F. He was mildly tachycardic. Blood pressure has been stable. He is afebrile this morning. Heart rate has improved. PAST MEDICAL HISTORY: See list. PAST SURGICAL HISTORY: See list. SOCIAL HISTORY: No illicit drug use. REVIEW OF SYSTEMS: CONSTITUTIONAL: Reports fever. HEENT: Denies blurred vision, vision changes, or eye pain. Denies hemoptysis CARDIOVASCULAR: Denies chest pain or pressure. RESPIRATORY: No shortness of breath. GASTROINTESTINAL: Refer to HPI for pertinent findings HEMATOLOGIC: Denies bleeding disorders. GENITOURINARY: Denies any blood in urine. SKIN: Denies pruitis. Denies rash. PHYSICAL EXAM: VITAL SIGNS: Reviewed. GENERAL: Well-developed in no acute distress. HEENT: No sclera icterus. Extraocular movements grossly intact. Moist buccal mucosa. Head is atraumatic, normocephalic. ABDOMEN: Soft. Distended. Bloated. Pain with tenderness upon palpation NEUROLOGIC: Alert and oriented. Cranial nerves II through XII grossly intact. LABORATORY DATA: WBC 5.6. Hemoglobin 13.2. BUN 36. Creatinine 2.37. Lactic acid 1.1. IMAGING: CT abdomen and pelvis with oral contrast reveals air within the wall of the stomach suggestive of emphysematous gastritis. Persistent dilated small bowel loops with localized area of wall thickening correlate for partial obstruction. Ileus or enteritis in the differential diagnosis. ASSESSMENT: 1. Partial small bowel obstruction 2. 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 History of bowel resection, 2016 PLAN: 1. Nothing by mouth. Continue IV fluids 2. Will place NG tube for gastric decompression 3. Continue antibiotics 4. Continue Protonix IV 5. Hold medications 6. No immediate surgical intervention recommended at this time but will continue to reevaluate daily Nurse practitioner note has been reviewed by physician. Signing provider agrees with the documented findings, assessment, and plan of care. Past Medical History Past Medical History: Coronary Artery Disease (CAD), Diabetes Mellitus, Fibromyalgia, Hyperlipidemia, Hypertension, Myocardial Infarction ([place]), Renal Disease, Syncope Additional Past Medical History / Comment(s): Transient global amnesia for 1 day and again on second occasion for 20 mins, GOUT, FOCAL SEGMENTAL GLOM ERULOSCLEROSIS (FSG- NAME OF RENAL DX), DIVERTICULITIS., STAGE 3 A KIDNEY DISEASE -30% LOSS OF KIDNEY FUNCTION. Last Myocardial Infarction Date:: 2010 History of Any Multi-Drug Resistant Organisms: None Reported Past Surgical History: Appendectomy, Bowel Resection, Cholecystectomy, Heart Catheterization With Stent Additional Past Surgical History / Comment(s): Colon Resection Feb 2017 Past Anesthesia/Blood Transfusion Reactions: No Reported Reaction, Motion Sickness Date of Last Stent Placement:: 2010 Past Psychological History: Anxiety Smoking Status: Never smoker Past Alcohol Use History: None Reported Past Drug Use History: None Reported - Past Family History Father Family Medical History: Blood Disorder Mother Family Medical History: Cancer Additional Family Medical History / Comment(s): Melanoma Medications and Allergies Home Medications Medication Instructions Recorded Confirmed Type Allopurinol [Zyloprim] 100 mg PO BID 09/25/16 11/07/18 History Aspirin [Adult Low Dose Aspirin EC] 162 mg PO DAILY 09/25/16 11/07/18 History Carvedilol [Coreg] 25 mg PO BID 09/25/16 11/07/18 History DULoxetine HCL [Cymbalta] 60 mg PO DAILY 09/25/16 11/07/18 History Ergocalciferol [Vitamin D2 50,000 unit PO Q14D 09/25/16 11/07/18 History (DRISDOL)] Furosemide [Lasix] 20 mg PO SUTUWETHSA 09/25/16 11/07/18 History LORazepam [Ativan] 1 mg PO TID PRN 09/25/16 11/07/18 History Liraglutide [Victoza 2-Seferino] 0.6 mg SQ DAILY 09/25/16 11/07/18 History Lisinopril [Zestril] 40 mg PO DAILY 09/25/16 11/07/18 History Multivitamins, Thera [Multivitamin 1 tab PO DAILY 09/25/16 11/07/18 History (formulary)] Nitroglycerin Sl Tabs [Nitrostat] 0.4 mg SUBLINGUAL Q5M PRN 09/25/16 11/07/18 History Nortriptyline HCl [Pamelor] 50 mg PO HS 09/25/16 11/07/18 History [place]-3/Dha/Epa/Fish Oil [Fish Oil 1 cap PO DAILY 09/25/16 11/07/18 History 1,360 mg Softgel] Rosuvastatin [Crestor] 10 mg PO HS 09/25/16 11/07/18 History Ubidecarenone [Co Q-10] 100 mg PO DAILY 09/25/16 11/07/18 History Furosemide [Lasix] 40 mg PO MOFR 11/11/16 11/07/18 History Acetaminophen [Tylenol Extra 500 mg PO DAILY PRN 01/31/17 11/07/18 History Strength] traMADol HCl [Ultram] 50 mg PO BID PRN 02/02/17 11/07/18 History Meclizine [Antivert] 12.5 mg PO TID PRN #30 tab 05/24/17 11/07/18 Rx Dicyclomine [Bentyl] 10 mg PO QID PRN #15 capsule 11/07/18 11/07/18 Rx Ondansetron [Zofran ODT] 4 mg PO Q8HR PRN #15 tab 11/07/18 11/07/18 Rx Terazosin HCl 2 mg PO HS 11/07/18 11/07/18 History Allergies Allergy/AdvReac Type Severity Reaction Status Date / Time adhesive tape Allergy Rash/Hives Verified 11/07/18 20:46 Penicillins Allergy Itching Verified 11/07/18 20:46 NSAIDS (Non-Steroidal AdvReac Unknown UNABLE TO Verified 11/07/18 20:46 Anti-Inflamma TAKE DUE TO KIDNEY DISEASE. prednisone AdvReac DEPRESSION Verified 11/07/18 20:46 WITH LARGE DOSES Surgical - Exam Vital Signs Temp Pulse Resp BP Pulse Ox 99.3 F 107 H 20 155/83 93 L 11/07/18 17:49 11/07/18 17:49 11/07/18 17:49 11/07/18 17:49 11/07/18 17:49 Results - Labs 11/08/18 08:52 11/08/18 08:52 Abnormal Lab Results - Last 24 Hours (Table) 11/07/18 11/07/18 11/08/18 Range/Units 18:13 18:13 07:10 RDW (11.5-15.5) % Plt Count (150-450) k/uL Chloride (98-107) mmol/L BUN 27 H (9-20) mg/dL Creatinine 1.60 H (0.66-1.25) mg/dL Glucose 207 H (74-99) mg/dL POC Glucose (mg/dL) 122 H (75-99) mg/dL Calcium (8.4-10.2) mg/dL Urine Protein 3+ H (Negative) Urine Glucose (UA) 2+ H (Negative) Urine Blood Small H (Negative) Urine Bacteria Rare H (None) /hpf 11/08/18 11/08/18 11/08/18 Range/Units 08:52 08:52 12:35 RDW 15.6 H (11.5-15.5) % Plt Count 134 L (150-450) k/uL Chloride 108 H (98-107) mmol/L BUN 36 H (9-20) mg/dL Creatinine 2.37 H (0.66-1.25) mg/dL Glucose 134 H (74-99) mg/dL POC Glucose (mg/dL) 144 H (75-99) mg/dL Calcium 8.1 L (8.4-10.2) mg/dL Urine Protein (Negative) Urine Glucose (UA) (Negative) Urine Blood (Negative) Urine Bacteria (None) /hpf Microbiology - Last 24 Hours (Table) 11/07/18 18:13 Urine Culture - Preliminary Urine,Voided Diabetes panel 11/07/18 11/08/18 Range/Units 18:13 08:52 Sodium 138 138 (137-145) mmol/L Potassium 4.6 4.9 (3.5-5.1) mmol/L Chloride 105 108 H (98-107) mmol/L Carbon Dioxide 22 22 (22-30) mmol/L BUN 27 H 36 H (9-20) mg/dL Creatinine 1.60 H 2.37 H (0.66-1.25) mg/dL Glucose 207 H 134 H (74-99) mg/dL Calcium 9.2 8.1 L (8.4-10.2) mg/dL AST 20 (17-59) U/L ALT 28 (21-72) U/L Alkaline Phosphatase 74 (38-126) U/L Total Protein 7.1 (6.3-8.2) g/dL Albumin 4.1 (3.5-5.0) g/dL Calcium panel 11/07/18 11/08/18 Range/Units 18:13 08:52 Calcium 9.2 8.1 L (8.4-10.2) mg/dL Albumin 4.1 (3.5-5.0) g/dL Pituitary panel 11/07/18 11/08/18 Range/Units 18:13 08:52 Sodium 138 138 (137-145) mmol/L Potassium 4.6 4.9 (3.5-5.1) mmol/L Chloride 105 108 H (98-107) mmol/L Carbon Dioxide 22 22 (22-30) mmol/L BUN 27 H 36 H (9-20) mg/dL Creatinine 1.60 H 2.37 H (0.66-1.25) mg/dL Glucose 207 H 134 H (74-99) mg/dL Calcium 9.2 8.1 L (8.4-10.2) mg/dL Adrenal panel 11/07/18 11/08/18 Range/Units 18:13 08:52 Sodium 138 138 (137-145) mmol/L Potassium 4.6 4.9 (3.5-5.1) mmol/L Chloride 105 108 H (98-107) mmol/L Carbon Dioxide 22 22 (22-30) mmol/L BUN 27 H 36 H (9-20) mg/dL Creatinine 1.60 H 2.37 H (0.66-1.25) mg/dL Glucose 207 H 134 H (74-99) mg/dL Calcium 9.2 8.1 L (8.4-10.2) mg/dL Total Bilirubin 0.9 (0.2-1.3) mg/dL AST 20 (17-59) U/L ALT 28 (21-72) U/L Alkaline Phosphatase 74 (38-126) U/L Total Protein 7.1 (6.3-8.2) g/dL Albumin 4.1 (3.5-5.0) g/dL
[2018-11-08 17:11] LABS: Glucose,Whole Blood 134 mg/dL (75-99)
[2018-11-08 19:44] LABS: Hepatitis A Antibody IgM Non-Reactive (Non-Reactive); Hepatitis B Core IgM Non-Reactive (Non-Reactive); Hepatitis B Surface Antigen Non-Reactive (Non-Reactive); Hepatitis C IgG Antibody Non-Reactive (Non-Reactive)
[2018-11-08 20:36] LABS: Glucose,Whole Blood 116 mg/dL (75-99)
--- NOTE | 2018-11-08 21:06 | PN ---
PROGRESS NOTE DATE OF SERVICE: 11/08/2018. This 73-year-old gentleman admitted with abdominal pain and distention, pain, diarrhea, being evaluated for the possibility of partial small-bowel obstruction. Surgery consultation has been has been noted. NG tube has been placed. The labs showed creatinine of 2.37, which is worsened 1.6 yesterday. PAST MEDICAL HISTORY: Reviewed. REVIEW OF SYSTEMS: CARDIOVASCULAR: No angina or palpitations. RESPIRATORY: As mentioned earlier. GI: No nausea or vomiting. mentioned earlier. Nervous system: No numbness or weakness. CURRENT MEDICATIONS: Reviewed and include: 1. Tylenol p.r.n. 2. Zyloprim 100 mg p.o. b.i.d. 3. Xanax 0.5 t.i.d. 4. Lipitor 20 mg q.h.s. 5. Coreg 25 mg p.o. b.i.d. 6. Bentyl 10 mg p.o. q.i.d. 7. Cardura 2 mg p.o. q.h.s. 8. Cymbalta 60 mg daily. 9. Vitamin D2. 10.Heparin 5000 subcu b.i.d. 11.Dilaudid 0.5 mg q.3 p.r.n. 12.Ativan 1 mg t.i.d. p.r.n. 13.Antivert 12.5 mg t.i.d. 14.Multivitamins one p.o. daily. 15.Narcan 0.2 q.2 p.r.n. 16.Nitrostat. 17.Pamelor. 18.Zofran. 19.Protonix. 20.Restoril. 21.Ultram. PHYSICAL EXAM: Patient is alert, oriented x3. Pulse is 98. Blood pressure 112/70, respiration 16, temp is 98.2, pulse ox 98% on room air. HEENT is conjunctivae normal. NECK is no jugular venous distention. CARDIOVASCULAR: S1, S2 muffled. RESPIRATION: Breath sounds diminished in the bases. A few scattered rhonchi and crackles. ABDOMEN: Soft, mild diffuse distention. Mild diffuse tenderness. LEGS no edema. No swelling. NERVOUS SYSTEM: No focal deficits. LABS: Sodium 130, potassium 4.9. Creatinine is 2.37. ASSESSMENT: 1. Abdominal pain, nausea, vomiting and diarrhea with possible acute enteritis secondary to food poisoning. Rule out partial small-bowel obstruction. 2. Increased creatinine with possible acute renal failure secondary from dehydration. 3. History of coronary artery disease. 4. Diabetes type 2. 5. Fibromyalgia. 6. Hypertension. 7. Hyperlipidemia. 8. History of myocardial infarction. 9. History of transient global amnesia. 10.History of gout. 11.History of focal segmental glomerular nephrosis. 12.History of diverticulitis. 13.History of stage 3 kidney disease. 14.History of coronary artery disease/ stent. 15.History of anxiety. RECOMMENDATIONS AND DISCUSSION: Recommend to continue current medications, management and symptomatic treatment. Otherwise, at this time, I recommend monitor the creatinine closely. Cautious IV fluids. IV bolus. The blood pressure is slightly low today. Otherwise symptomatic treatment and closely follow with multiple consultants. Guarded prognosis because of the multiple complex medical issues. Further recommendations to follow. See orders for details. MMODL / IJN: [id number] /
[2018-11-08] MEDS: DOXAZOSIN 2 MG TAB PO SCH (21:39)
[2018-11-08] MEDS: ATORVASTATIN 20 MG TAB PO SCH (21:39)
[2018-11-08] MEDS: NORTRIPTYLINE 25 MG CAP PO SCH (21:39)
--- NOTE | 2018-11-08 21:55 | P.CONS ---
History of Present Illness - Reason for Consult Consult date: 11/08/18 entritis and food poisoning Requesting physician: Ivan Torres - Chief Complaint Abdominal pain and vomiting x few days - History of Present Illness Patient is a 73-year-old male started getting sick approximately 3 days ago with the patient said he ate outside and ate lasagna, 3 hours later the patient had did have intractable nausea vomiting crampy abdominal pain and diarrhea with multiple loose stools no blood or mucus in the stools the patient denies high-grade fever however did have some chills the patient symptomatically not improving the patient presented to [facility] ER on 11/16/2018,The patient was hydrated and he felt better afterwards and subsequently discharged home however the patient did have recurrence of symptoms with nausea vomiting diarrhea and abdominal pain abdominal pain describing to be colicky arm 78 out of 10 with associated nausea vomiting and diarrhea continued to have some chills but denies high-grade fever the symptom the patient presented back to [facility] ER on arrival to the ER the patient did have low-grade fever 100.5 patient white count was normal patient did have abdominal x-rays and a CT abdo men and pelvis was ordered which is pending at the time of my evaluation this morning patient has been treated with Levaquin and Flagyl stool studies are currently pending and infectious disease was consulted for further recommendation regarding antibiotic therapy Review of Systems Positive points has been mentioned in HPI rest of the systems are negative Past Medical History Past Medical History: Coronary Artery Disease (CAD), Diabetes Mellitus, Fibromyalgia, Hyperlipidemia, Hypertension, Myocardial Infarction ([place]), Renal Disease, Syncope Additional Past Medical History / Comment(s): Transient global amnesia for 1 day and again on second occasion for 20 mins, GOUT, FOCAL SEGMENTAL GLOMERULOSCLEROS IS (FSG- NAME OF RENAL DX), DIVERTICULITIS., STAGE 3 A KIDNEY DISEASE -30% LOSS OF KIDNEY FUNCTION. Last Myocardial Infarction Date:: 2010 History of Any Multi-Drug Resistant Organisms: None Reported Past Surgical History: Appendectomy, Bowel Resection, Cholecystectomy, Heart Catheterization With Stent Additional Past Surgical History / Comment(s): Colon Resection Feb 2017 Past Anesthesia/Blood Transfusion Reactions: No Reported Reaction, Motion Sickness Date of Last Stent Placement:: 2010 Past Psychological History: Anxiety Smoking Status: Never smoker Past Alcohol Use History: None Reported Past Drug Use History: None Reported - Past Family History Father Family Medical History: Blood Disorder Mother Family Medical History: Cancer Additional Family Medical History / Comment(s): Melanoma Medications and Allergies Home Medications Medication Instructions Recorded Confirmed Type Allopurinol [Zyloprim] 100 mg PO BID 09/25/16 11/07/18 History Aspirin [Adult Low Dose Aspirin EC] 162 mg PO DAILY 09/25/16 11/07/18 History Carvedilol [Coreg] 25 mg PO BID 09/25/16 11/07/18 History DULoxetine HCL [Cymbalta] 60 mg PO DAILY 09/25/16 11/07/18 History Ergocalciferol [Vitamin D2 50,000 unit PO Q14D 09/25/16 11/07/18 History (DRISDOL)] Furosemide [Lasix] 20 mg PO SUTUWETHSA 09/25/16 11/07/18 History LORazepam [Ativan] 1 mg PO TID PRN 09/25/16 11/07/18 History Liraglutide [Victoza 2-Seferino] 0.6 mg SQ DAILY 09/25/16 11/07/18 History Lisinopril [Zestril] 40 mg PO DAILY 09/25/16 11/07/18 History Multivitamins, Thera [Multivitamin 1 tab PO DAILY 09/25/16 11/07/18 History (formulary)] Nitroglycerin Sl Tabs [Nitrostat] 0.4 mg SUBLINGUAL Q5M PRN 09/25/16 11/07/18 History Nortriptyline HCl [Pamelor] 50 mg PO HS 09/25/16 11/07/18 History [place]-3/Dha/Epa/Fish Oil [Fish Oil 1 cap PO DAILY 09/25/16 11/07/18 History 1,360 mg Softgel] Rosuvastatin [Crestor] 10 mg PO HS 09/25/16 11/07/18 History Ubidecarenone [Co Q-10] 100 mg PO DAILY 09/25/16 11/07/18 History Furosemide [Lasix] 40 mg PO MOFR 11/11/16 11/07/18 History Acetaminophen [Tylenol Extra 500 mg PO DAILY PRN 01/31/17 11/07/18 History Strength] traMADol HCl [Ultram] 50 mg PO BID PRN 02/02/17 11/07/18 History Meclizine [Antivert] 12.5 mg PO TID PRN #30 tab 05/24/17 11/07/18 Rx Dicyclomine [Bentyl] 10 mg PO QID PRN #15 capsule 11/07/18 11/07/18 Rx Ondansetron [Zofran ODT] 4 mg PO Q8HR PRN #15 tab 11/07/18 11/07/18 Rx Terazosin HCl 2 mg PO HS 11/07/18 11/07/18 History Allergies Allergy/AdvReac Type Severity Reaction Status Date / Time adhesive tape Allergy Rash/Hives Verified 11/07/18 20:46 Penicillins Allergy Itching Verified 11/07/18 20:46 NSAIDS (Non-Steroidal AdvReac Unknown UNABLE TO Verified 11/07/18 20:46 Anti-Inflamma TAKE DUE TO KIDNEY DISEASE. prednisone AdvReac DEPRESSION Verified 11/07/18 20:46 WITH LARGE DOSES Physical Exam Vitals: Vital Signs Temp Pulse Resp BP Pulse Ox 11/08/18 13:20 98.2 F 98 16 112/70 93 L 11/08/18 05:15 99.1 F 99 16 90/55 92 L 11/07/18 22:30 98.8 F 107 H 16 155/84 93 L Intake and Output 11/08/18 11/08/18 11/08/18 06:59 14:59 22:59 Output Total 400 Balance -400 Output: Gastric Drainage 400 Other: Voiding Method Toilet Toilet Toilet # Voids 2 # Bowel Movements 2 GENERAL DESCRIPTION: An elderly male lying in bed, no distress. No tachypnea or accessory muscle of respiration use. HEENT: Shows Pallor , no scleral icterus. Oral mucous membrane is dry. No pharyngeal erythema or thrush NECK: Trachea central, no thyromegaly. LUNGS: Unlabored breathing. Clear to auscultation anteriorly. No wheeze or crackle. HEART: S1, S2, regular rate and rhythm. No loud murmur ABDOMEN: Soft, mild epigastric tenderness , no guarding or rigidity, no organomegaly EXTREMITIES: No edema of feet. SKIN: No rash, no masses palpable. NEUROLOGICAL: The patient is awake, alert, oriented x3, mood and affect normal. Results CBC & Chem 7: 11/08/18 08:52 11/08/18 08:52 Labs: Abnormal Lab Results - Last 24 Hours (Table) 11/08/18 11/08/18 11/08/18 Range/Units 07:10 08:52 08:52 RDW 15.6 H (11.5-15.5) % Plt Count 134 L (150-450) k/uL Chloride 108 H (98-107) mmol/L BUN 36 H (9-20) mg/dL Creatinine 2.37 H (0.66-1.25) mg/dL Glucose 134 H (74-99) mg/dL POC Glucose (mg/dL) 122 H (75-99) mg/dL Calcium 8.1 L (8.4-10.2) mg/dL 11/08/18 11/08/18 11/08/18 Range/Units 12:35 17:09 20:27 RDW (11.5-15.5) % Plt Count (150-450) k/uL Chloride (98-107) mmol/L BUN (9-20) mg/dL Creatinine (0.66-1.25) mg/dL Glucose (74-99) mg/dL POC Glucose (mg/dL) 144 H 134 H 116 H (75-99) mg/dL Calcium (8.4-10.2) mg/dL Microbiology - Last 24 Hours (Table) 11/08/18 10:50 Stool Culture - Preliminary Stool 11/07/18 18:13 Urine Culture - Preliminary Urine,Voided Assessment and Plan Assessment: 1-patient presented to hospital with acute nausea vomiting diarrhea and abdominal pain that apparently started 3 hours after the patient ate outside with concern for food poisoning likely etiology and likely from a preformed toxin 2-Patient with multiple antibiotics ALLERGIES that will limit the number of antibiotic safe to use Plan: 1-await the blood as ordered for cultures to finalize stool for C. diff is negative 2-empiric Levaquin 500 mg daily and Flagyl 500 mg 3 times a day 3-IV fluid 4-review CT with the radiologist we will follow on clinical condition and culture to further adjust medication if needed Thank you for this consultation will follow this patient along with you Time with Patient: Greater than 30
[2018-11-08] MEDS: LEVOFLOXACIN 250MG-D5W PMX 250 MG in DEXTROSE/WATER 1 50ML.BAG IVPB SCH (23:47)
[2018-11-08] MEDS: LORazepam 1 MG TAB PO PRN (23:47)
[2018-11-09] MEDS: HYDROmorphone 0.5 MG/0.5 ML SYRINGE IVP PRN ×6 (04:24→22:50)
[2018-11-09] MEDS: SODIUM CHLORIDE 0.9% 1,000 ML IV SCH ×2 (04:35→11:16)
[2018-11-09] MEDS: metroNIDAZOLE-NS PMX 500 MG in SALINE 1 100ML.BAG IVPB SCH ×3 (05:19→21:06)
[2018-11-09 07:11] LABS: Glucose,Whole Blood 118 mg/dL (75-99)
[2018-11-09] MEDS: DULoxetine HCL 60 MG CAPSULE.DR PO SCH (07:46)
[2018-11-09] MEDS: ALLOPURINOL 100 MG TAB PO SCH ×2 (07:46→21:05)
[2018-11-09] MEDS: CARVEDILOL 12.5 MG TAB PO SCH ×2 (07:46→15:05)
[2018-11-09] MEDS: MULTIVITAMINS, THERA 1 EACH TAB PO SCH (07:46)
[2018-11-09] MEDS: ONDANSETRON 4 MG/2 ML VIAL IVP PRN (07:55)
[2018-11-09] MEDS: PANTOPRAZOLE 40 MG/10 ML VIAL IVP SCH ×2 (07:55→21:05)
[2018-11-09] MEDS: HEPARIN SODIUM,PORCINE 5,000 UNIT/ML 1 ML VIAL SQ SCH ×2 (07:55→21:05)
[2018-11-09] MEDS ORDERED: FUROSEMIDE 40 MG TAB PO SCH (09:00)
[2018-11-09 09:08] LABS: Basophils % (A) 0 %; Eosinophils # (A) 0.2 k/uL (0-0.7); Eosinophils % (A) 2 %; HGB 12.9 gm/dL (13.0-17.5); Lymphocytes # (A) 1.1 k/uL (1.0-4.8); Lymphocytes % (A) 16 %; MCH 30.8 pg (25.0-35.0); MCHC 32.3 g/dL (31.0-37.0); MCV 95.3 fL (80.0-100.0); Mean Platelet Volume 8.1; Monocytes # (A) 0.6 k/uL (0-1.0); Monocytes % (A) 9 %; Neutrophils # (A) 5.1 k/uL (1.3-7.7); Neutrophils % (A) 70 %; Platelet Count 137 k/uL (150-450); RDW 15.9 % (11.5-15.5); WBC 7.3 k/uL (3.8-10.6)
[2018-11-09 09:15] LABS: Calcium 8.3 mg/dL (8.4-10.2); Potassium 4.4 mmol/L (3.5-5.1)
--- NOTE | 2018-11-09 10:05 | P.PN ---
Subjective Patient is seen in follow-up for acute kidney injury on chronic kidney disease. Patient has chronic kidney disease stage III with baseline creatinine in the range of 1.6-2 secondary to biopsy-proven FSGS. Patient presented to the hospital with nausea vomiting and diarrhea. He currently has an NG tube. Output was 400 mL overnight. He is maintained on normal saline at 100 mL an hour. Creatinine was 2.37 on admission and is 2.03 today. Vital signs are stable. General: The patient appeared well nourished and normally developed. HEENT: Head exam is unremarkable. Neck is without jugular venous distension. NG tube noted. LUNGS: Lungs are clear to auscultation and percussion. Breath sounds decreased. HEART: Rate and Rhythm are regular. First and second heart sounds normal. No murmurs, rubs or gallops. ABDOMEN: Abdominal exam reveals normal bowel sounds. Non-tender and non- distended. No evidence of peritonitis. EXTREMITITES: No clubbing, cyanosis, or edema. Objective - Vital Signs Vital signs: Vital Signs Temp 98.9 F 11/09/18 05:00 Pulse 104 H 11/09/18 05:00 Resp 20 11/09/18 05:00 BP 117/70 11/09/18 05:00 Pulse Ox 92 L 11/09/18 05:00 Intake & Output 11/08/18 11/09/18 11/09/18 18:59 06:59 18:59 Intake Total 0 Output Total 400 400 Balance -400 -400 Intake: Oral 0 Output: Gastric Drainage 400 400 Other: Voiding Method Toilet Toilet # Voids 2 2 # Bowel Movements 2 - Labs CBC & Chem 7: 11/09/18 08:25 11/09/18 08:25 Labs: Abnormal Lab Results - Last 24 Hours (Table) 11/08/18 11/08/18 11/08/18 Range/Units 08:52 12:35 17:09 RBC (4.30-5.90) m/uL Hgb (13.0-17.5) gm/dL RDW 15.6 H (11.5-15.5) % Plt Count 134 L (150-450) k/uL Chloride (98-107) mmol/L Carbon Dioxide (22-30) mmol/L BUN (9-20) mg/dL Creatinine (0.66-1.25) mg/dL Glucose (74-99) mg/dL POC Glucose (mg/dL) 144 H 134 H (75-99) mg/dL Calcium (8.4-10.2) mg/dL 11/08/18 11/09/18 11/09/18 Range/Units 20:27 07:06 08:25 RBC 4.20 L (4.30-5.90) m/uL Hgb 12.9 L (13.0-17.5) gm/dL RDW 15.9 H (11.5-15.5) % Plt Count 137 L (150-450) k/uL Chloride (98-107) mmol/L Carbon Dioxide (22-30) mmol/L BUN (9-20) mg/dL Creatinine (0.66-1.25) mg/dL Glucose (74-99) mg/dL POC Glucose (mg/dL) 116 H 118 H (75-99) mg/dL Calcium (8.4-10.2) mg/dL 11/09/18 Range/Units 08:25 RBC (4.30-5.90) m/uL Hgb (13.0-17.5) gm/dL RDW (11.5-15.5) % Plt Count (150-450) k/uL Chloride 113 H (98-107) mmol/L Carbon Dioxide 18 L (22-30) mmol/L BUN 31 H (9-20) mg/dL Creatinine 2.03 H (0.66-1.25) mg/dL Glucose 114 H (74-99) mg/dL POC Glucose (mg/dL) (75-99) mg/dL Calcium 8.3 L (8.4-10.2) mg/dL Microbiology - Last 24 Hours (Table) 11/07/18 18:13 Urine Culture - Final Urine,Voided 11/08/18 10:50 Stool Culture - Preliminary Stool Assessment and Plan Plan: Assessment: 1. Acute kidney injury secondary to ATN secondary to intravascular volume depletion from vomiting and diarrhea and further worsened with the use of lisinopril and diuretics. Patient also received IV contrast on November 06 which is also a contributing factor. Creatinine was 2.37 yesterday and is down to 2.03 today. 2. 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 3. Nausea vomiting and diarrhea which suspicion for emphysematous gastritis. Surgery following. Currently has an NG tube. 4. Hypertension with chronic kidney disease. Stable. 5. Metabolic acidosis secondary to acute kidney injury and IV fluids. Plan: Maintain normal saline at 100 mL an hour. Hold lisinopril and Lasix. Hold cardura for systolic blood pressure less than 120. Repeat electrolytes in the morning. Follow-up cultures. Monitor bicarb.
[2018-11-09 12:37] LABS: Glucose,Whole Blood 117 mg/dL (75-99)
--- NOTE | 2018-11-09 14:28 | P.PN ---
Subjective Progress Note Date: 11/09/18 CHIEF COMPLAINT: Abdominal pain HISTORY OF PRESENT ILLNESS: Patient seen and examined at the bedside with Dr. Anaya this morning. Patient reports his abdominal pain is tolerable. NG to LIS with 400cc bilious drainage. Reports feeling less bloated. He is having loose stools this morning. PHYSICAL EXAM: VITAL SIGNS: Reviewed. GENERAL: Well-developed in no acute distress. HEENT: No sclera icterus. Extraocular movements grossly intact. Moist buccal mucosa. Head is atraumatic, normocephalic. ABDOMEN: Soft. Distended. Bloated. Pain with tenderness upon palpation NEUROLOGIC: Alert and oriented. Cranial nerves II through XII grossly intact. ASSESSMENT: 1. Partial small bowel obstruction 2. 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 History of bowel resection, 2017 PLAN: Continue NPO. Continue NG to LIS. Continue Protonix and antibiotics. Plan is to remove NG tube tomorrow and begin clear liquid diet. However, patient will be reassessed tomorrow by Dr. Rizzo before NG is removed Nurse practitioner note has been reviewed by physician. Signing provider agrees with the documented findings, assessment, and plan of care. Objective - Vital Signs Vital signs: Vital Signs Temp 98.2 F 11/09/18 13:15 Pulse 104 H 11/09/18 13:15 Resp 16 11/09/18 13:15 BP 139/74 11/09/18 13:15 Pulse Ox 93 L 11/09/18 13:15 Intake & Output 11/08/18 11/09/18 11/09/18 18:59 06:59 18:59 Intake Total 0 Output Total 400 400 Balance -400 -400 Intake: Oral 0 Output: Gastric Drainage 400 400 Other: Voiding Method Toilet Toilet # Voids 2 2 2 # Bowel Movements 2 - Labs CBC & Chem 7: 11/09/18 08:25 11/09/18 08:25 Labs: Abnormal Lab Results - Last 24 Hours (Table) 11/08/18 11/08/18 11/09/18 Range/Units 17:09 20:27 07:06 RBC (4.30-5.90) m/uL Hgb (13.0-17.5) gm/dL RDW (11.5-15.5) % Plt Count (150-450) k/uL Chloride (98-107) mmol/L Carbon Dioxide (22-30) mmol/L BUN (9-20) mg/dL Creatinine (0.66-1.25) mg/dL Glucose (74-99) mg/dL POC Glucose (mg/dL) 134 H 116 H 118 H (75-99) mg/dL Calcium (8.4-10.2) mg/dL 11/09/18 11/09/18 11/09/18 Range/Units 08:25 08:25 12:34 RBC 4.20 L (4.30-5.90) m/uL Hgb 12.9 L (13.0-17.5) gm/dL RDW 15.9 H (11.5-15.5) % Plt Count 137 L (150-450) k/uL Chloride 113 H (98-107) mmol/L Carbon Dioxide 18 L (22-30) mmol/L BUN 31 H (9-20) mg/dL Creatinine 2.03 H (0.66-1.25) mg/dL Glucose 114 H (74-99) mg/dL POC Glucose (mg/dL) 117 H (75-99) mg/dL Calcium 8.3 L (8.4-10.2) mg/dL Microbiology - Last 24 Hours (Table) 11/07/18 18:13 Urine Culture - Final Urine,Voided 11/08/18 10:50 Stool Culture - Preliminary Stool
[2018-11-09] MEDS: LORazepam 1 MG TAB PO PRN ×2 (15:02→22:50)
[2018-11-09] MEDS: BENZOCAINE SPRAY 1 CAN MUCOUS MEM PRN (15:03)
[2018-11-09 17:28] LABS: Glucose,Whole Blood 132 mg/dL (75-99)
--- NOTE | 2018-11-09 18:40 | PN ---
PROGRESS NOTE DATE OF SERVICE: 11/09/2018. This 73-year-old gentleman who was admitted with abdominal pain and vomiting and nausea, diarrhea is being closely monitored at this time. A repeat CT scan of the abdomen and pelvis done yesterday showed findings suspicious for air within the wall of the stomach suggestive of emphysematous gastritis and dilated small bowel loops with localized areas of wall thickening was also noted. Partial obstruction was suspected. Patient is still on NG tube. Surgery and nephrology and Infectious Disease following the patient closely. PAST MEDICAL HISTORY: Reviewed. REVIEW OF SYSTEMS: CARDIOVASCULAR SYSTEM: No angina or palpitations. RESPIRATION: No cough. GI as mentioned earlier. : As mentioned earlier. CENTRAL NERVOUS SYSTEM: No numbness or weakness. CURRENT MEDICATIONS: Reviewed and include: 1. Tylenol 500 mg p.o. daily. 2. Zyloprim 100 mg p.o. b.i.d. 3. Xanax 0.25 mg t.i.d. 4. Lipitor 20 mg q.h.s. 5. Hurricane spray. 6. Coreg 325 mg p.o. b.i.d. 7. Bentyl 10 mg p.o. q.i.d. 8. Cardura 2 mg q.h.s. 9. Cymbalta 60 mg. 10.Vitamin B2 50,000. 11.Heparin 5000 subcu daily. 12.Dilaudid 0.5 mg q.3 p.r.n. 13.Levaquin 250 mg daily. 14.Ativan t.i.d. p.r.n. 15.Antivert. 16.Flagyl 500 mg q.8h. 17.Multivitamins. 18.Nitrostat. 19.Zofran. 20.Protonix. 21.Restoril. 22.Ultram. PHYSICAL EXAM: Patient is alert and oriented times three. Pulse 104. Blood pressure 139/75, respiration 16, temperature 98.2, pulse ox 98% on room air. HEENT: Conjunctivae normal. NECK: No jugular venous distention. CARDIOVASCULAR: S1, S2 muffled. RESPIRATIONS: Breath sounds diminished in the bases. Bilateral scattered rhonchi and crackles. ABDOMEN: Soft, mild diffuse distention. Mild diffuse tenderness present. No guarding. No rigidity. No mass. Bowel sounds diminished. NG tube in situ. LEGS: No edema. No swelling. NERVOUS SYSTEM: Higher functions as mentioned earlier. Moves all four extremities. No focal deficits. LYMPHATICS: No lymph nodes palpable in the neck, axilla or groin. SKIN: No ulcer, rashes or bleeding. JOINTS: No active deforming arthropathy. LABS: WBC 7.2, hemoglobin 12.9 sodium 140, potassium 4.2, sodium 137, creatinine is 2.03. ASSESSMENT: 1. Abdominal pain, nausea, vomiting, diarrhea with possible acute enteritis. Suspect food poisoning. 2. Possible partial small-bowel obstruction. 3. Possible emphysematous gastritis with air within the gastric wall. 4. Increased creatinine with possible acute renal failure secondary from dehydration. 5. History of coronary artery disease. 6. Diabetes mellitus type 2. 7. Fibromyalgia. 8. Hypertension. 9. Hyperlipidemia. 10.History of myocardial infarction. 12.History of gout. 13.History of focal segmental global glomerulonephritis sclerosis. 14.History of diverticulitis. 15.Stage 3 kidney disease. 16.History of coronary artery disease/ stent. 17.History of anxiety. RECOMMENDATIONS AND DISCUSSION: Recommend to continue current medications, management and symptomatic treatment. Otherwise, at this time I recommend continue with current medications. Continue with symptomatic treatment. Continue with NG tube. Continue the broad-spectrum IV antibiotics. Cultures are negative so far. Prognosis guarded because of multiple complex medical issues. Discussed with the family at length at the bedside and I would follow with multiple consultants. Further recommendations to follow. EDGAR / NAUN: [id number] / MTDD
--- NOTE | 2018-11-09 19:10 | PN ---
PROGRESS NOTE DATE OF SERVICE: 11/09/2018. REASON FOR FOLLOWUP: Acute gastroenteritis possible food poisoning with emphysematous gastritis. INTERVAL COURSE: The patient is currently afebrile. Patient's abdominal pain has improved. down to about 5, comparing to 01/10 yesterday. The patient did have NG with no further vomiting and did not have any further bowel movements. Denies any chest pain, shortness of breath or cough. Overall feeling better compared to yesterday. PHYSICAL EXAMINATION: Blood pressure 139/74 with a pulse of 104, temperature 98.2. He is 93% on room air. General description is a middle aged male lying in bed in no distress. Respiratory system: Unlabored breathing. Clear to auscultation anteriorly. Heart S1, S2. Regular rate and rhythm. Abdomen soft. No significant tenderness. No guarding or rigidity. EXTREMITIES: No edema of the feet. LABS: Hemoglobin is 12.1, white count 13.3, BUN of 31, creatinine is 2.03. Stool culture currently pending. DIAGNOSTIC IMPRESSION AND PLAN: Patient admitted to the hospital with nausea, and vomiting with evidence of emphysematous gastritis on the CT. Patient clinically responding to the Levaquin and Flagyl. Continue along with bowel rest and monitor clinical course closely. Continue supportive care. MMODL / IJN: [id number] / MTDD
[2018-11-09 20:58] LABS: Glucose,Whole Blood 118 mg/dL (75-99)
[2018-11-09] MEDS: ATORVASTATIN 20 MG TAB PO SCH (21:05)
[2018-11-09] MEDS: NORTRIPTYLINE 25 MG CAP PO SCH (21:05)
[2018-11-09] MEDS: LEVOFLOXACIN 250MG-D5W PMX 250 MG in DEXTROSE/WATER 1 50ML.BAG IVPB SCH (23:07)
[2018-11-09] MEDS: DOXAZOSIN 2 MG TAB PO SCH (23:15)
[2018-11-10] MEDS: SODIUM CHLORIDE 0.9% 1,000 ML IV SCH ×2 (00:28→09:25)
[2018-11-10] MEDS: metroNIDAZOLE-NS PMX 500 MG in SALINE 1 100ML.BAG IVPB SCH ×3 (04:59→21:42)
[2018-11-10] MEDS: HYDROmorphone 0.5 MG/0.5 ML SYRINGE IVP PRN (05:09)
[2018-11-10 07:08] LABS: Glucose,Whole Blood 116 mg/dL (75-99)
[2018-11-10] MEDS: MULTIVITAMINS, THERA 1 EACH TAB PO SCH (07:37)
[2018-11-10] MEDS: HEPARIN SODIUM,PORCINE 5,000 UNIT/ML 1 ML VIAL SQ SCH ×2 (07:45→21:40)
[2018-11-10] MEDS: CARVEDILOL 12.5 MG TAB PO SCH ×2 (07:45→17:11)
[2018-11-10] MEDS: PANTOPRAZOLE 40 MG/10 ML VIAL IVP SCH ×2 (07:45→21:39)
[2018-11-10] MEDS: DULoxetine HCL 60 MG CAPSULE.DR PO SCH (07:46)
[2018-11-10 08:36] LABS: Basophils % (A) 0 %; Eosinophils # (A) 0.1 k/uL (0-0.7); Eosinophils % (A) 2 %; HCT 41.7 % (39.0-53.0); HGB 13.4 gm/dL (13.0-17.5); Lymphocytes # (A) 1.3 k/uL (1.0-4.8); Lymphocytes % (A) 16 %; MCH 30.7 pg (25.0-35.0); MCV 95.8 fL (80.0-100.0); Mean Platelet Volume 7.9; Monocytes # (A) 0.6 k/uL (0-1.0); Monocytes % (A) 8 %; Neutrophils # (A) 5.7 k/uL (1.3-7.7); Neutrophils % (A) 71 %; Platelet Count 172 k/uL (150-450); RBC 4.36 m/uL (4.30-5.90); RDW 15.6 % (11.5-15.5)
[2018-11-10 08:44] LABS: Calcium 8.8 mg/dL (8.4-10.2); Potassium 4.2 mmol/L (3.5-5.1)
[2018-11-10] MEDS: ALLOPURINOL 100 MG TAB PO SCH ×2 (09:24→21:40)
[2018-11-10] MEDS: BENZOCAINE SPRAY 1 CAN MUCOUS MEM PRN (09:26)
[2018-11-10 12:02] LABS: Glucose,Whole Blood 139 mg/dL (75-99)
--- NOTE | 2018-11-10 12:39 | P.PN ---
Subjective Progress Note Date: 11/10/18 CHIEF COMPLAINT: Bowel obstruction HISTORY OF PRESENT ILLNESS: The patient is a 73-year-old male who presented with emphysema of the stomach. He is doing well. He is passing flatus. Nasogastric tube with light bile. He is taking ice chips as well. ROS: No reports of nausea and vomiting. No fevers or chills. No new chest pain. No productive sputum PHYSICAL EXAM: VITAL SIGNS: Reviewed CONSTITUTIONAL: Well developed and in no acute distress. EYES: Conjuctivae without sclera icterus. Extraocular movements grossly intact. HEAD, EARS, NOSE, THROAT: Moist buccal mucosa. Head is atraumatic, normocephalic. Hears conversational speech. No nasal drainage. NECK: Supple. No thyroidomegaly. RESPIRATORY: Non-labored respirations and equal bilateral excursions. CARDIOVASCULAR: Palpable 2+ radial pulses. Regular rate. Regular rhythm. ABDOMEN: Soft. No peritonitis. MUSCULOSKELETAL: No gross deformity of the lower extremities noted. No clubbing. No cyanosis. SKIN: Good skin turgor. Well perfused. NEUROLOGIC: Cranial nerves I through XII grossly intact. No focal or lateralizing signs. PSYCH: Appropriate affect. Alert and oriented to person, place and time. CLINCAL LABS: White blood cell count normal. Kidney function has improved. WBC improved. STUDIES: CT of the abdomen personally reviewed with no evidence of free air RADIOLOGY: Report reviewed demonstrating mild inflammatory changes of the stomach. ASSESSMENT: 1. Enteritis with emphysema of the stomach PLAN: 1. I personally removed his NG tube. 2. Start clears. 3. Will monitor. Objective - Vital Signs Vital signs: Vital Signs Temp 97.7 F 11/10/18 04:40 Pulse 98 11/10/18 04:40 Resp 20 11/10/18 04:40 BP 151/77 11/10/18 04:40 Pulse Ox 94 L 11/10/18 04:40 Intake & Output 11/09/18 11/10/18 11/10/18 18:59 06:59 18:59 Intake Total 0 Output Total 400 350 Balance -400 -350 Intake: Oral 0 Output: Gastric Drainage 400 350 Other: Voiding Method Toilet Toilet # Voids 2 2 1 # Bowel Movements 2 0 - Labs CBC & Chem 7: 11/10/18 07:57 08/10/19 07:57 Labs: Abnormal Lab Results - Last 24 Hours (Table) 11/09/18 11/09/18 11/09/18 Range/Units 12:34 17:25 20:55 RDW (11.5-15.5) % Sodium (137-145) mmol/L Chloride (98-107) mmol/L Carbon Dioxide (22-30) mmol/L BUN (9-20) mg/dL Creatinine (0.66-1.25) mg/dL Glucose (74-99) mg/dL POC Glucose (mg/dL) 117 H 132 H 118 H (75-99) mg/dL 11/10/18 11/10/18 11/10/18 Range/Units 07:04 07:57 07:57 RDW 15.6 H (11.5-15.5) % Sodium 149 H (137-145) mmol/L Chloride 116 H (98-107) mmol/L Carbon Dioxide 21 L (22-30) mmol/L BUN 25 H (9-20) mg/dL Creatinine 1.66 H (0.66-1.25) mg/dL Glucose 119 H (74-99) mg/dL POC Glucose (mg/dL) 116 H (75-99) mg/dL 11/10/18 Range/Units 12:00 RDW (11.5-15.5) % Sodium (137-145) mmol/L Chloride (98-107) mmol/L Carbon Dioxide (22-30) mmol/L BUN (9-20) mg/dL Creatinine (0.66-1.25) mg/dL Glucose (74-99) mg/dL POC Glucose (mg/dL) 139 H (75-99) mg/dL Microbiology - Last 24 Hours (Table) 11/08/18 16:17 Blood Culture - Preliminary Blood No Growth after 24 hours Assessment and Plan (1) Enteritis Current Visit: Yes Status: Acute Code(s): K52.9 - NONINFECTIVE GASTROENTERITIS AND COLITIS, UNSPECIFIED SNOMED Code(s): 47567213 (2) Partial small bowel obstruction Current Visit: Yes Status: Acute Code(s): K56.600 - PARTIAL INTESTINAL OBSTRUCTION, UNSPECIFIED TO CAUSE SNOMED Code(s): 073910025 (3) Pneumobilia Current Visit: Yes Status: Acute Code(s): K83.8 - OTHER SPECIFIED DISEASES OF BILIARY TRACT SNOMED Code(s): 018378070
--- NOTE | 2018-11-10 12:43 | P.PN ---
Subjective Progress Note Date: 11/10/18 She is feeling well. She complains of only gas pains to her back. LFTs are normal. She had an atypical gigantic gallbladder removed consistent with hydrops cholecystitis. Continue hospitalization. Start Simethicone drops. Advance diet. Objective - Vital Signs Vital signs: Vital Signs Temp 97.7 F 11/10/18 04:40 Pulse 98 11/10/18 04:40 Resp 20 11/10/18 04:40 BP 151/77 11/10/18 04:40 Pulse Ox 94 L 11/10/18 04:40 Intake & Output 11/09/18 11/10/18 11/10/18 18:59 06:59 18:59 Intake Total 0 Output Total 400 350 Balance -400 -350 Intake: Oral 0 Output: Gastric Drainage 400 350 Other: Voiding Method Toilet Toilet # Voids 2 2 1 # Bowel Movements 2 0 - Labs CBC & Chem 7: 11/10/18 07:57 11/10/18 07:57 Labs: Abnormal Lab Results - Last 24 Hours (Table) 11/09/18 11/09/18 11/10/18 Range/Units 17:25 20:55 07:04 RDW (11.5-15.5) % Sodium (137-145) mmol/L Chloride (98-107) mmol/L Carbon Dioxide (22-30) mmol/L BUN (9-20) mg/dL Creatinine (0.66-1.25) mg/dL Glucose (74-99) mg/dL POC Glucose (mg/dL) 132 H 118 H 116 H (75-99) mg/dL 11/10/18 11/10/18 11/10/18 Range/Units 07:57 07:57 12:00 RDW 15.6 H (11.5-15.5) % Sodium 149 H (137-145) mmol/L Chloride 116 H (98-107) mmol/L Carbon Dioxide 21 L (22-30) mmol/L BUN 25 H (9-20) mg/dL Creatinine 1.66 H (0.66-1.25) mg/dL Glucose 119 H (74-99) mg/dL POC Glucose (mg/dL) 139 H (75-99) mg/dL Microbiology - Last 24 Hours (Table) 11/08/18 16:17 Blood Culture - Preliminary Blood No Growth after 24 hours
--- NOTE | 2018-11-10 12:58 | P.PN ---
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 He was admitted with gastroenteritis possibly with nausea vomiting after eating at [facility] This morning as I was examining him his NG tube was pulled out by the surgical team. He has had 400 mL of NG tube suction but this is contaminated with about 3 glasses of iced it. He has not been no fever chills no nausea vomiting. No diarrhea. He is passed some gas. Objective - Vital Signs Vital signs: Vital Signs Temp 97.7 F 11/10/18 04:40 Pulse 98 11/10/18 04:40 Resp 20 11/10/18 04:40 BP 151/77 11/10/18 04:40 Pulse Ox 94 L 11/10/18 04:40 Intake & Output 11/09/18 11/10/18 11/10/18 18:59 06:59 18:59 Intake Total 0 Output Total 400 350 300 Balance -400 -350 -300 Intake: Oral 0 Output: Gastric Drainage 400 350 300 Other: Voiding Method Toilet Toilet # Voids 2 2 1 # Bowel Movements 2 0 On examination is awake alert oriented comfortable No JVP lymphadenopathy thyromegaly neck is supple no facial asymmetry Lungs clear to auscultation percussion good air entry bilaterally Heart sounds are unremarkable no murmur rub gallop Abdomen soft nontender Extremity exam was no edema Neurologically awake alert oriented - Labs CBC & Chem 7: 11/10/18 07:57 11/10/18 07:57 Labs: Abnormal Lab Results - Last 24 Hours (Table) 11/09/18 11/09/18 11/10/18 Range/Units 17:25 20:55 07:04 RDW (11.5-15.5) % Sodium (137-145) mmol/L Chloride (98-107) mmol/L Carbon Dioxide (22-30) mmol/L BUN (9-20) mg/dL Creatinine (0.66-1.25) mg/dL Glucose (74-99) mg/dL POC Glucose (mg/dL) 132 H 118 H 116 H (75-99) mg/dL 11/10/18 11/10/18 11/10/18 Range/Units 07:57 07:57 12:00 RDW 15.6 H (11.5-15.5) % Sodium 149 H (137-145) mmol/L Chloride 116 H (98-107) mmol/L Carbon Dioxide 21 L (22-30) mmol/L BUN 25 H (9-20) mg/dL Creatinine 1.66 H (0.66-1.25) mg/dL Glucose 119 H (74-99) mg/dL POC Glucose (mg/dL) 139 H (75-99) mg/dL Microbiology - Last 24 Hours (Table) 11/08/18 16:17 Blood Culture - Preliminary Blood No Growth after 24 hours Assessment and Plan Assessment: Impression 1. Acute gastroenteritis resolved. 2. 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 Creatinine is 1.6 baseline 3. Mild degree of non-gap acidosis from diarrhea. Additionally from chronic kidney disease. Bicarb is 21 Recommendation 1. Maintain IV fluids normal saline at 100 and hour until his by mouth intake is adequate. 2. Watch bicarb. He could be discharged any time, I'll defer to the surgical and the primary care team
[2018-11-10] MEDS: LORazepam 1 MG TAB PO PRN ×2 (13:15→21:39)
[2018-11-10] MEDS: SIMETHICONE 40 MG/0.6 ML DROPS 2,000 MG/30 ML BOTTLE PO SCH ×3 (14:16→21:46)
[2018-11-10] MEDS ORDERED: DEXTROSE 5% IN WATER 1,000 ML with POTASSIUM CHLORIDE 20 MEQ IV ONE (16:15)
[2018-11-10 16:59] LABS: Glucose,Whole Blood 146 mg/dL (75-99)
--- NOTE | 2018-11-10 17:47 | PN ---
PROGRESS NOTE DATE OF SERVICE: 11/10/2018 This 73-year-old gentleman with a past medical history of multiple medical problems was admitted with features of acute gastroenteritis and patient also had partial small bowel obstruction. NG tube was removed. The patient improved significantly. Patient also had emphysematous gastritis with air in the gastric wall at this time. No chest pain. No palpitations. No fever. Surgery is following the patient closely. EXAM: Alert and oriented x3. Pulse 90. Blood pressure 147/70, respiration 18, temperature 98.2, pulse ox 94% on room air. HEENT is conjunctivae normal. CARDIOVASCULAR: S1, S2 muffled. RESPIRATORY SYSTEM: Breath sounds diminished at the bases. A few scattered rhonchi and no crackles. Abdomen is soft nontender. Legs are no edema. No swelling. CENTRAL NERVOUS SYSTEM: No focal deficits. LABS: CBC within normal limits. Sodium 149, creatinine is 1.66. PAST HISTORY: Past medical history reviewed. REVIEW OF SYSTEMS: Cardiovascular system: No angina. RESPIRATORY: As mentioned earlier. GASTROINTESTINAL: As mentioned earlier. as mentioned earlier. CENTRAL NERVOUS SYSTEM: No numbness or weakness. CURRENT MEDICATIONS: Reviewed and include: 1. Tylenol 500 mg p.o. daily. 2. Zyloprim 100 mg p.o. b.i.d. 3. Xanax. 4. Lipitor. 5. Hurricane spray. 6. Coreg. 7. Bentyl. 8. Cardura. 9. Cymbalta. 10.Vitamin D2. 11.Heparin. 12.Dilaudid. 13.Levaquin. 14.Antivert. 15.Flagyl. 16.Narcan. 17.Nitrostat. 18.Pamelor. 19.Zofran. 20.Protonix. 21.Mylicon. 22.Restoril. 23.Ultram. 24.Doses reviewed. ASSESSMENT: 1. Abdominal pain, nausea, vomiting, diarrhea with possible acute gastroenteritis, suspect poisoning. 2. Possible partial small-bowel obstruction. 3. Possible emphysematous gastritis with air in the gastric wall. 4. Increased creatinine with possible acute renal failure possibly secondary to dehydration. 5. History of coronary artery disease. 6. Diabetes type 2. 7. Fibromyalgia. 8. Hypertension. 9. History of myocardial infarction. 10.History of gout. 11.History of glomerular sclerosis. 12.History of diverticulitis. 13.History of stage 3 kidney disease. 14.History of coronary artery disease/ stent. 15.History of anxiety. RECOMMENDATIONS AND DISCUSSION: Recommend to continue current medications, management and symptomatic treatment. Continue with broad-spectrum IV antibiotics. I would recommend changing the fluid to D5 water at this time. Continue to monitor. Monitor lytes and creatinine closely. Creatinine appears to be fluctuating slightly at this time. We will continue to monitor. See orders for details. MMODL / IJN: [id number] / MTDArielle
[2018-11-10 21:01] LABS: Glucose,Whole Blood 211 mg/dL (75-99)
[2018-11-10] MEDS: ATORVASTATIN 20 MG TAB PO SCH (21:40)
[2018-11-10] MEDS: NORTRIPTYLINE 25 MG CAP PO SCH (21:41)
[2018-11-10] MEDS: INSULIN ASPART (NovoLOG) 100 UNIT/ML VIAL SQ SCH (21:57)
[2018-11-10] MEDS: LEVOFLOXACIN 250MG-D5W PMX 250 MG in DEXTROSE/WATER 1 50ML.BAG IVPB SCH (23:25)
[2018-11-11] MEDS: DOXAZOSIN 2 MG TAB PO SCH ×2 (00:13→22:14)
[2018-11-11] MEDS: metroNIDAZOLE-NS PMX 500 MG in SALINE 1 100ML.BAG IVPB SCH ×2 (04:54→13:01)
[2018-11-11 07:24] LABS: Glucose,Whole Blood 119 mg/dL (75-99)
[2018-11-11 07:43] LABS: Basophils % (A) 0 %; Eosinophils # (A) 0.1 k/uL (0-0.7); Eosinophils % (A) 2 %; HGB 12.4 gm/dL (13.0-17.5); Lymphocytes # (A) 1.2 k/uL (1.0-4.8); Lymphocytes % (A) 20 %; MCH 30.2 pg (25.0-35.0); MCHC 32.6 g/dL (31.0-37.0); MCV 92.7 fL (80.0-100.0); Mean Platelet Volume 7.2; Monocytes # (A) 0.5 k/uL (0-1.0); Monocytes % (A) 8 %; Neutrophils # (A) 4.2 k/uL (1.3-7.7); Neutrophils % (A) 66 %; Platelet Count 185 k/uL (150-450); RDW 14.3 % (11.5-15.5); WBC 6.3 k/uL (3.8-10.6)
[2018-11-11 07:50] LABS: Calcium 8.5 mg/dL (8.4-10.2); Potassium 3.4 mmol/L (3.5-5.1)
[2018-11-11] MEDS: INSULIN ASPART (NovoLOG) 100 UNIT/ML VIAL SQ SCH ×4 (08:28→21:14)
--- NOTE | 2018-11-11 08:52 | P.PN ---
Subjective Progress Note Date: 11/11/18 CHIEF COMPLAINT: Bowel obstruction HISTORY OF PRESENT ILLNESS: The patient is a 73-year-old male who presented with emphysema of the stomach. He tolerated liquid diet. No reports of abdominal pain after start of diet. Cultures on stool assay still pending. ROS: No reports of nausea and vomiting. No fevers or chills. No new chest pain. No productive sputum PHYSICAL EXAM: VITAL SIGNS: Reviewed CONSTITUTIONAL: Well developed and in no acute distress. EYES: Conjuctivae without sclera icterus. Extraocular movements grossly intact. HEAD, EARS, NOSE, THROAT: Moist buccal mucosa. Head is atraumatic, normocephalic. Hears conversational speech. No nasal drainage. NECK: Supple. No thyroidomegaly. RESPIRATORY: Non-labored respirations and equal bilateral excursions. CARDIOVASCULAR: Palpable 2+ radial pulses. Regular rate. Regular rhythm. ABDOMEN: Soft. No peritonitis. MUSCULOSKELETAL: No gross deformity of the lower extremities noted. No clubbing. No cyanosis. SKIN: Good skin turgor. Well perfused. NEUROLOGIC: Cranial nerves I through XII grossly intact. No focal or lateralizing signs. PSYCH: Appropriate affect. Alert and oriented to person, place and time. CLINCAL LABS: White blood cell count normal. Kidney function has improved from 1.66 to 1.35. STUDIES: CT of the abdomen personally reviewed AND shown to his at bedside with no evidence of free air RADIOLOGY: Report reviewed demonstrating mild inflammatory changes of the stomach. ASSESSMENT: 1. Enteritis with emphysema of the stomach PLAN: 1. Advance diet to soft. 2. Clear from a surgical standpoint for discharge once tolerating soft diet. Objective - Vital Signs Vital signs: Vital Signs Temp 97.9 F 11/11/18 06:35 Pulse 58 L 11/11/18 06:35 Resp 18 11/11/18 06:35 BP 159/79 11/11/18 06:35 Pulse Ox 96 11/11/18 06:35 Intake & Output 11/10/18 11/11/18 11/11/18 18:59 06:59 18:59 Intake Total 550 Output Total 300 Balance -300 550 Intake: Oral 550 Output: Gastric Drainage 300 Other: Voiding Method Toilet Toilet # Voids 1 2 - Labs CBC & Chem 7: 11/11/18 07:03 11/11/18 07:03 Labs: Abnormal Lab Results - Last 24 Hours (Table) 11/10/18 11/10/18 11/10/18 Range/Units 07:57 12:00 16:54 RBC (4.30-5.90) m/uL Hgb (13.0-17.5) gm/dL Hct (39.0-53.0) % Potassium (3.5-5.1) mmol/L Chloride 116 H (98-107) mmol/L Carbon Dioxide 21 L (22-30) mmol/L BUN 25 H (9-20) mg/dL Creatinine 1.66 H (0.66-1.25) mg/dL Glucose 119 H (74-99) mg/dL POC Glucose (mg/dL) 139 H 146 H (75-99) mg/dL 11/10/18 11/11/18 11/11/18 Range/Units 20:57 07:03 07:03 RBC 4.10 L (4.30-5.90) m/uL Hgb 12.4 L (13.0-17.5) gm/dL Hct 38.0 L (39.0-53.0) % Potassium 3.4 L (3.5-5.1) mmol/L Chloride 113 H (98-107) mmol/L Carbon Dioxide (22-30) mmol/L BUN 21 H (9-20) mg/dL Creatinine 1.35 H (0.66-1.25) mg/dL Glucose 120 H (74-99) mg/dL POC Glucose (mg/dL) 211 H (75-99) mg/dL 11/11/18 Range/Units 07:12 RBC (4.30-5.90) m/uL Hgb (13.0-17.5) gm/dL Hct (39.0-53.0) % Potassium (3.5-5.1) mmol/L Chloride (98-107) mmol/L Carbon Dioxide (22-30) mmol/L BUN (9-20) mg/dL Creatinine (0.66-1.25) mg/dL Glucose (74-99) mg/dL POC Glucose (mg/dL) 119 H (75-99) mg/dL Microbiology - Last 24 Hours (Table) 11/08/18 10:50 Stool Culture - Preliminary Stool 11/08/18 16:17 Blood Culture - Preliminary Blood No Growth after 48 hours Assessment and Plan (1) Enteritis Current Visit: Yes Status: Acute Code(s): K52.9 - NONINFECTIVE GASTROENTERITIS AND COLITIS, UNSPECIFIED SNOMED Code(s): 76399431 (2) Partial small bowel obstruction Current Visit: Yes Status: Acute Code(s): K56.600 - PARTIAL INTESTINAL OBSTRUCTION, UNSPECIFIED TO CAUSE SNOMED Code(s): 795493359 (3) Pneumobilia Current Visit: Yes Status: Acute Code(s): K83.8 - OTHER SPECIFIED DISEASES OF BILIARY TRACT SNOMED Code(s): 327149442
[2018-11-11] MEDS: DULoxetine HCL 60 MG CAPSULE.DR PO SCH (09:20)
[2018-11-11] MEDS: CARVEDILOL 12.5 MG TAB PO SCH ×2 (09:21→16:51)
[2018-11-11] MEDS: MULTIVITAMINS, THERA 1 EACH TAB PO SCH (09:21)
[2018-11-11] MEDS: HEPARIN SODIUM,PORCINE 5,000 UNIT/ML 1 ML VIAL SQ SCH ×2 (09:21→20:56)
[2018-11-11] MEDS: ALLOPURINOL 100 MG TAB PO SCH ×2 (09:21→20:55)
[2018-11-11] MEDS: SIMETHICONE 40 MG/0.6 ML DROPS 2,000 MG/30 ML BOTTLE PO SCH ×4 (09:21→22:14)
[2018-11-11] MEDS: PANTOPRAZOLE 40 MG/10 ML VIAL IVP SCH (09:21)
[2018-11-11] MEDS: POTASSIUM CHLORIDE ER 20 MEQ TAB.ER PO SCH ×2 (10:01→11:13)
--- NOTE | 2018-11-11 10:50 | P.PN ---
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 He was admitted with gastroenteritis possibly, with nausea vomiting after eating at [facility]. He had an NG tube that was draining bilious material. This was discontinued yesterday morning on 11/10/2018. Since then he has done well. No nausea vomiting no diarrhea is moving his bowels is able to eat clear liquids. Is being increased to regular diet this morning Objective - Vital Signs Vital signs: Vital Signs Temp 97.9 F 11/11/18 06:35 Pulse 58 L 11/11/18 06:35 Resp 18 11/11/18 06:35 BP 159/79 11/11/18 06:35 Pulse Ox 96 11/11/18 06:35 Intake & Output 11/10/18 11/11/18 11/11/18 18:59 06:59 18:59 Intake Total 550 Output Total 300 Balance -300 550 Intake: Oral 550 Output: Gastric Drainage 300 Other: Voiding Method Toilet Toilet # Voids 1 2 On examination is awake alert oriented comfortable HEENT exam no JVP neck is supple no facial asymmetry Lungs are clear to auscultation good air entry bilaterally Heart sounds are unremarkable normal sinus rhythm no murmur rub gallop Abdomen soft nontender no rebound Extreme exam was no edema Neurologically awake alert oriented comfortable - Labs CBC & Chem 7: 11/11/18 07:03 11/11/18 07:03 Labs: Abnormal Lab Results - Last 24 Hours (Table) 11/10/18 11/10/18 11/10/18 Range/Units 12:00 16:54 20:57 RBC (4.30-5.90) m/uL Hgb (13.0-17.5) gm/dL Hct (39.0-53.0) % Potassium (3.5-5.1) mmol/L Chloride (98-107) mmol/L BUN (9-20) mg/dL Creatinine (0.66-1.25) mg/dL Glucose (74-99) mg/dL POC Glucose (mg/dL) 139 H 146 H 211 H (75-99) mg/dL 11/11/18 11/11/18 11/11/18 Range/Units 07:03 07:03 07:12 RBC 4.10 L (4.30-5.90) m/uL Hgb 12.4 L (13.0-17.5) gm/dL Hct 38.0 L (39.0-53.0) % Potassium 3.4 L (3.5-5.1) mmol/L Chloride 113 H (98-107) mmol/L BUN 21 H (9-20) mg/dL Creatinine 1.35 H (0.66-1.25) mg/dL Glucose 120 H (74-99) mg/dL POC Glucose (mg/dL) 119 H (75-99) mg/dL Microbiology - Last 24 Hours (Table) 11/08/18 10:50 Stool Culture - Preliminary Stool 11/08/18 16:17 Blood Culture - Preliminary Blood No Growth after 48 hours Assessment and Plan Assessment: Impression 1. Acute gastroenteritis resolved. 2. 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 Creatinine is 1.3. Significantly improved 3. Mild degree of non-gap acidosis from diarrhea. Additionally from chronic kidney disease. Bicarb is 21 Recommendation 1. Discontinue IV fluids. 2. Continue oral bicarbonate for right now 3. TERRENCE inhibitor discharged any time, deferred to the primary.
[2018-11-11 11:59] LABS: Glucose,Whole Blood 223 mg/dL (75-99)
[2018-11-11 14:47] VITALS: RESP 20
[2018-11-11] MEDS: LORazepam 1 MG TAB PO PRN ×2 (15:44→22:14)
[2018-11-11] MEDS ORDERED: Potassium Replacement Protocol 1 EACH MISC MISCELLANE PRN (16:17)
[2018-11-11] MEDS: PANTOPRAZOLE 40 MG TABLET PO SCH (16:51)
[2018-11-11 17:30] LABS: Glucose,Whole Blood 147 mg/dL (75-99)
--- NOTE | 2018-11-11 20:14 | PN ---
PROGRESS NOTE DATE OF SERVICE: 11/11/2018 This 73-year-old gentleman who was admitted with abdominal pain, nausea, vomiting, diarrhea, and possible acute gastroenteritis also had suspected partial small-bowel obstruction. Patient also had emphysematous gastritis. Patient also had renal failure which is also improved. The medications are being adjusted. The creatinine improved to 1.35. WBC 6.2, hemoglobin 12.4. Surgery has advanced the diet. No chest pain. No palpitations. No fever. EXAM: Alert and oriented x3. Pulse 61, blood pressure 147/70, respiration 20, temp 98.2, pulse ox 98% on room air. HEENT: Conjunctivae normal. Oral mucosa moist. NECK: No jugular venous distention. No lymph node enlargement. CARDIOVASCULAR: S1, S2. RESPIRATORY: Diminished breath sounds at the bases. No rhonchi, no crackles. ABDOMEN: Soft, obese, nontender. No mass palpable. LEGS: No swelling. NERVOUS SYSTEM: No focal deficits. WBC 6.2, hemoglobin 12.4, sodium 142, potassium 3.2, creatinine 1.35. ASSESSMENT: 1. Abdominal pain, nausea, vomiting, diarrhea, possible acute gastroenteritis, suspect food poisoning. 2. Possible partial small-bowel obstruction. 3. Possible emphysematous gastritis with air in the gastric wall. 4. Increased creatinine with possible acute renal failure possibly secondary to dehydration. 5. History of coronary artery disease. 6. Diabetes mellitus type 2. 7. Fibromyalgia. 8. Hypertension. 9. History of myocardial infarction. 10.History of gout. 11.History of focal segmental global sclerosis. 12.History of diverticulitis. 13.History of stage 3 kidney disease. 14.History of coronary artery disease and stent. 15.History of anxiety. RECOMMENDATIONS AND DISCUSSION: Recommend to continue current medications, continue to monitor, symptomatic treatment. Otherwise, we will monitor the patient closely. Repeat labs will be ordered and continue the rest of medications. Potassium supplementation. Further recommendations to follow. MMODL / IJN: [id number] /
[2018-11-11 20:33] LABS: Glucose,Whole Blood 180 mg/dL (75-99)
[2018-11-11] MEDS: NORTRIPTYLINE 25 MG CAP PO SCH (20:54)
[2018-11-11] MEDS: ATORVASTATIN 20 MG TAB PO SCH (20:55)
[2018-11-11] MEDS ORDERED: LEVOFLOXACIN 250 MG TAB PO SCH (21:00)
[2018-11-11] MEDS: metroNIDAZOLE 500 MG TAB PO SCH (22:14)
--- NOTE | 2018-11-12 01:48 | PN ---
PROGRESS NOTE DATE OF SERVICE: 11/11/2018. REASON FOR FOLLOWUP: Acute gastroenteritis . INTERVAL HISTORY: The patient is currently afebrile. Patient has been breathing comfortably. The patient denies having any chest pain or cough. Abdominal pain has resolved. No further nausea/vomiting. Has been tolerating a regular diet. Main symptom has been diarrhea with multiple loose stools per day. PHYSICAL EXAMINATION: Blood pressure is 147/71 with a pulse of 61, temperature 98.3. He is 98% on room air. General description is an elderly male lying in bed in no distress. Respiratory system: Unlabored breathing. Clear to auscultation anteriorly. Heart S1, S2. Regular rate and rhythm. ABDOMEN: Soft, slightly distended, but no tenderness. Extremities are no edema of the feet. LAB: Stool culture has been negative so far. DIAGNOSTIC IMPRESSION AND PLAN: Patient admitted to the hospital with acute gastroenteritis and this patient did have evidence of severe gastritis on the basis of the CT. The patient abdominal pain has resolved. Main symptom remains to be diarrhea for which Questran will be added. Continue with the antibiotic, Levaquin, and Flagyl. Continue supportive care. MMODL / IJN: [id number] / MTDD
[2018-11-12] MEDS: metroNIDAZOLE 500 MG TAB PO SCH ×2 (06:06→13:50)
[2018-11-12 07:36] LABS: Glucose,Whole Blood 125 mg/dL (75-99)
[2018-11-12 07:46] VITALS: BP 166/90; PULSE 72; TEMP 97.6
[2018-11-12] MEDS: INSULIN ASPART (NovoLOG) 100 UNIT/ML VIAL SQ SCH ×2 (07:58→13:50)
[2018-11-12] MEDS: CARVEDILOL 12.5 MG TAB PO SCH (08:00)
[2018-11-12] MEDS: HEPARIN SODIUM,PORCINE 5,000 UNIT/ML 1 ML VIAL SQ SCH (08:00)
[2018-11-12] MEDS: DULoxetine HCL 60 MG CAPSULE.DR PO SCH (08:00)
[2018-11-12] MEDS: MULTIVITAMINS, THERA 1 EACH TAB PO SCH (08:00)
[2018-11-12] MEDS: PANTOPRAZOLE 40 MG TABLET PO SCH (08:00)
[2018-11-12] MEDS: ALLOPURINOL 100 MG TAB PO SCH (08:00)
[2018-11-12] MEDS: SIMETHICONE 40 MG/0.6 ML DROPS 2,000 MG/30 ML BOTTLE PO SCH ×2 (08:01→13:52)
--- NOTE | 2018-11-12 09:41 | P.PN ---
Subjective Patient is seen in follow-up for acute kidney injury on chronic kidney disease. Patient has chronic kidney disease stage III with baseline creatinine in the range of 1.6-2 secondary to biopsy-proven FSGS. Patient presented to the hospital with nausea vomiting and diarrhea. NG tube was removed on November 10. Now tolerating oral intake. Admits to good urine output. He is off IV fluids. Renal function back to baseline. Vital signs are stable. General: The patient appeared well nourished and normally developed. HEENT: Head exam is unremarkable. Neck is without jugular venous distension. NG tube noted. LUNGS: Lungs are clear to auscultation and percussion. Breath sounds decreased. HEART: Rate and Rhythm are regular. First and second heart sounds normal. No murmurs, rubs or gallops. ABDOMEN: Abdominal exam reveals normal bowel sounds. Non-tender and non- distended. No evidence of peritonitis. EXTREMITITES: No clubbing, cyanosis, or edema. Objective - Vital Signs Vital signs: Vital Signs Temp 97.6 F 11/12/18 05:00 Pulse 72 11/12/18 05:00 Resp 20 11/12/18 05:00 BP 166/90 11/12/18 05:00 Pulse Ox 97 11/12/18 05:00 Intake & Output 11/11/18 11/12/18 11/12/18 18:59 06:59 18:59 Intake Total 1500 500 Balance 1500 500 Intake: IV 900 0 Sodium Chloride 0.9% 1, 800 000 ml @ 100 mls/hr IV . Q10H EARNEST Rx#:[id number] PMX 500 100 0 mg In Saline 1 100ml.bag @ 100 mls/hr IVPB Q8H AERNEST Rx#:[id number] Oral 600 500 Other: Voiding Method Toilet # Voids 2 # Bowel Movements 0 - Labs CBC & Chem 7: 11/11/18 07:03 11/11/18 07:03 Labs: Abnormal Lab Results - Last 24 Hours (Table) 11/11/18 11/11/18 11/11/18 Range/Units 11:56 17:17 20:29 POC Glucose (mg/dL) 223 H 147 H 180 H (75-99) mg/dL 11/12/18 Range/Units 07:33 POC Glucose (mg/dL) 125 H (75-99) mg/dL Microbiology - Last 24 Hours (Table) 11/08/18 10:50 Stool Culture - Final Stool 11/08/18 16:17 Blood Culture - Preliminary Blood No Growth after 72 hours Assessment and Plan Plan: Assessment: 1. Acute kidney injury secondary to ATN secondary to intravascular volume depletion from vomiting and diarrhea and further worsened with the use of lisinopril and diuretics. Patient also received IV contrast on November 06 which is also a contributing factor. Resolved. 2. 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 3. Nausea vomiting and diarrhea which suspicion for emphysematous gastritis. Surgery following. Currently has an NG tube. 4. Hypertension with chronic kidney disease. Stable. 5. Metabolic acidosis secondary to acute kidney injury and IV fluids. Improved. Plan: Encourage oral intake. Resume lisinopril. Stable to be discharged home from nephrology standpoint. Follow up outpatient in the next 2-3 weeks.
[2018-11-12] MEDS ORDERED: CHOLESTYRAMINE (WITH SUGAR) 4 GM PACKET PO SCH (10:00)
[2018-11-12 10:02] LABS: Calcium 9.2 mg/dL (8.4-10.2); Potassium 3.8 mmol/L (3.5-5.1)
[2018-11-12 10:19] LABS: Basophils % (A) 0 %; Eosinophils # (A) 0.2 k/uL (0-0.7); Eosinophils % (A) 3 %; HCT 41.8 % (39.0-53.0); HGB 13.7 gm/dL (13.0-17.5); Lymphocytes # (A) 1.5 k/uL (1.0-4.8); Lymphocytes % (A) 25 %; MCH 30.3 pg (25.0-35.0); MCHC 32.8 g/dL (31.0-37.0); MCV 92.3 fL (80.0-100.0); Mean Platelet Volume 7.6; Monocytes # (A) 0.5 k/uL (0-1.0); Monocytes % (A) 9 %; Neutrophils # (A) 3.5 k/uL (1.3-7.7); Neutrophils % (A) 59 %; Platelet Count 179 k/uL (150-450); RBC 4.52 m/uL (4.30-5.90); RDW 14.2 % (11.5-15.5); WBC 5.9 k/uL (3.8-10.6)
[2018-11-12 12:48] LABS: Glucose,Whole Blood 184 mg/dL (75-99)
--- NOTE | 2018-11-12 13:41 | P.PN ---
Subjective Progress Note Date: 11/12/18 CHIEF COMPLAINT: Abdominal pain HISTORY OF PRESENT ILLNESS: Patient seen and examined at the bedside. NG has been removed. Patient is tolerating regular diet. Denies nausea or vomiting. Passing flatus and having BMs. Stool culture negative. Blood cultures negative. PHYSICAL EXAM: VITAL SIGNS: Reviewed GENERAL: Well-developed in no acute distress. HEENT: No sclera icterus. Extraocular movements grossly intact. Moist buccal mucosa. Head is atraumatic, normocephalic. Hears conversational speech. No nasal drainage. NECK: Supple without lymphadenopathy. CHEST: Non-labored respirations and equal bilateral excursions. CARDIOVASCULAR: Regular rate with regular rhythm. Palpable 2+ radial pulses. ABDOMEN: Soft. Nondistended. Nontender. Positive bowel sounds. MUSCULOSKELETAL: No clubbing, cyanosis or edema. NEUROLOGIC: No focal or lateralizing signs. Cranial nerves II through XII grossly intact. PSYCH: Appropriate affect. Alert and oriented to person, place and time. SKIN: Well perfused. Good skin turgor. ASSESSMENT: 1. Partial small bowel obstruction, resolved 2. 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 History of bowel resection, 2017 PLAN: Continue current diet. Stable for discharge from a surgical standpoint when cleared by admitting physician. Patient to follow up with Dr. Anaya in 1 week. Nurse practitioner note has been reviewed by physician. Signing provider agrees with the documented findings, assessment, and plan of care. Objective - Vital Signs Vital signs: Vital Signs Temp 97.6 F 11/12/18 05:00 Pulse 72 11/12/18 05:00 Resp 20 11/12/18 05:00 BP 166/90 11/12/18 05:00 Pulse Ox 97 11/12/18 05:00 Intake & Output 11/11/18 11/12/18 11/12/18 18:59 06:59 18:59 Intake Total 1500 500 Output Total 1 Balance 1500 500 -1 Intake: IV 900 0 Sodium Chloride 0.9% 1, 800 000 ml @ 100 mls/hr IV . Q10H [facility] Rx#:[id number] metroNIDAZOLE-NS PMX 500 100 0 mg In Saline 1 100ml.bag @ 100 mls/hr IVPB Q8H [facility] Rx#:[id number] Oral 600 500 Output: Stool 1 Other: Voiding Method Toilet # Voids 2 # Bowel Movements 0 - Labs CBC & Chem 7: 11/12/18 08:53 11/12/18 08:53 Labs: Abnormal Lab Results - Last 24 Hours (Table) 11/11/18 11/11/18 11/12/18 Range/Units 17:17 20:29 07:33 Chloride (98-107) mmol/L Creatinine (0.66-1.25) mg/dL Glucose (74-99) mg/dL POC Glucose (mg/dL) 147 H 180 H 125 H (75-99) mg/dL 11/12/18 11/12/18 Range/Units 08:53 12:47 Chloride 111 H (98-107) mmol/L Creatinine 1.38 H (0.66-1.25) mg/dL Glucose 141 H (74-99) mg/dL POC Glucose (mg/dL) 184 H (75-99) mg/dL Microbiology - Last 24 Hours (Table) 11/08/18 10:50 Stool Culture - Final Stool 11/08/18 16:17 Blood Culture - Preliminary Blood No Growth after 72 hours Assessment and Plan (1) Enteritis Current Visit: Yes Status: Acute Code(s): K52.9 - NONINFECTIVE GASTROENTERITIS AND COLITIS, UNSPECIFIED SNOMED Code(s): 10312104 (2) Partial small bowel obstruction Current Visit: Yes Status: Acute Code(s): K56.600 - PARTIAL INTESTINAL OBSTRUCTION, UNSPECIFIED TO CAUSE SNOMED Code(s): 011054648
--- NOTE | 2018-11-12 14:01 | PN ---
PROGRESS NOTE DATE OF SERVICE: 11/12/2018 REASON FOR FOLLOWUP: Acute gastroenteritis, possible food poisoning INTERVAL HISTORY: The patient is currently afebrile. Patient is feeling much better. The patient denies having any abdominal pain. No nausea, vomiting. Has been tolerating a regular diet. Patient's diarrhea has improved. Did have one small bowel movement this morning. No blood or mucus in the stool. PHYSICAL EXAMINATION: Blood pressure 156/91, with a pulse of 72, temperature 97.6, He is 97% on room air. General description is an elderly male, lying in bed in no distress. RESPIRATORY SYSTEM: Unlabored breathing, clear to auscultation anteriorly. HEART: S1, S2. Regular rate and rhythm. ABDOMEN: Soft, no tenderness, no guarding or rigidity. EXTREMITIES: No edema of the feet. LABS: Hemoglobin 13.1, white count of 5.9, BUN of 17, creatinine 1.38. Stool culture has been negative. DIAGNOSTIC IMPRESSION AND PLAN: Acute gastroenteritis, possible food poisoning versus viral, overall improvement. Culture has been negative. Recommend short course of treatment with cholestyramine for symptomatic relief. If any recurrence of abdominal pain, fever related to let us know right away, followup is needed. MMODL / IJN: [id number] / MTDArielle
--- NOTE | 2018-11-12 18:08 | ECHOF ---
Referral Reason:bradycardia MEASUREMENTS -------- HEIGHT: 172.7 cm WEIGHT: 86.2 kg BP: 147/71 IVSd: 1.1 cm (0.6 - 1.1) LVIDd: 4.5 cm (3.9 - 5.3) LVPWd: 1.2 cm (0.6 - 1.1) IVSs: 1.5 cm LVIDs: 3.0 cm LVPWs: 1.3 cm LA Diam: 3.6 cm (2.7 - 3.8) RVIDd: 3.2 cm (< 3.3) LAESV Index (A-L): 24.26 ml/m Ao Diam: 3.2 cm (2.0 - 3.7) AV Cusp: 1.6 cm (1.5 - 2.6) EPSS: 0.7 cm MV E Oniel: 0.75 m/s MV DecT: 205 ms MV A Oniel: 1.09 m/s MV E/A Ratio: 0.69 MV EF SLOPE: 39.89 mm/s (70 - 150) MV EXCURSION: 13.06 mm (> 18.000) FINDINGS -------- Sinus rhythm. This was a technically adequate study. The left ventricular size is normal. There is borderline concentric left ventricular hypertrophy. Overall left ventricular systolic function is mild-moderately impaired with, an EF between 40 - 45 % . Apical inferior LV wall motion is hypokinetic. Apical septum LV wall motion is hypokinetic. The right ventricle is normal in size. Normal LA size by volume 22+/-6 ml/m2. The right atrium is normal in size. Interatrial and interventricular septum intact. There is mild aortic valve sclerosis. Mild mitral annular calcification present. Mild mitral regurgitation is present. The tricuspid valve appears structurally normal. Trace/mild (physiologic) pulmonic regurgitation. The aortic root size is normal. Normal inferior vena cava with normal inspiratory collapse consistent with estimated right atrial pre ssure of 5 mmHg. There is no pericardial effusion. CONCLUSIONS -------- 1. Sinus rhythm. 2. This was a technically adequate study. 3. The left ventricular size is normal. 4. There is borderline concentric left ventricular hypertrophy. 5. Overall left ventricular systolic function is mild-moderately impaired with, an EF between 40 - 45 %. 6. Apical inferior LV wall motion is hypokinetic. 7. Apical septum LV wall motion is hypokinetic. 8. The right ventricle is normal in size. 9. Normal LA size by volume 22+/-6 ml/m2. 10. The right atrium is normal in size. 11. Interatrial and interventricular septum intact. 12. There is mild aortic valve sclerosis. 13. Mild mitral annular calcification present. 14. Mild mitral regurgitation is present. 15. The tricuspid valve appears structurally normal. 16. Trace/mild (physiologic) pulmonic regurgitation. 17. The aortic root size is normal. 18. Normal inferior vena cava with normal inspiratory collapse consistent with estimated right atrial pressure of 5 mmHg. 19. There is no pericardial effusion. VISUALIZER: Erin Meeks RDCS
--- NOTE | 2018-11-13 00:25 | DS ---
DISCHARGE SUMMARY FINAL DIAGNOSES: 1. Abdominal pain, nausea, vomiting diarrhea possible acute gastroenteritis, suspect food poisoning. 2. Possible partial small-bowel obstruction improved. 3. Possible emphysematous gastritis with air in the gastric body, improved. 4. Increased creatinine with possible acute renal failure possibly secondary to dehydration improved. 5. History of coronary artery disease. 6. Diabetes mellitus type 2. 7. Fibromyalgia. 8. Hypertension. 9. History of myocardial infarction. 10.History of gout. 11.History of focal segmental global sclerosis. 12.History of diverticulitis. 13.History of stage 3 kidney disease. 14.History of coronary artery disease/ stent. 15.History of anxiety. DISCHARGE DISCHARGE: The patient will be discharged in stable condition with guarded prognosis. Total time taken 35 minutes. HISTORY OF PRESENT ILLNESS: This 73-year-old gentleman with the past medical history of multiple medical problems was admitted with significant abdominal pain, nausea, vomiting after episode of food poisoning. Apparently the patient was monitored closely. The patient has some renal failure and as well as possible emphysematous gastritis. Patient has seen multiple consultants including Gastroenterology, Nephrology, Infectious Disease care was coordinated. Patient improved significantly. On exam, vitals are stable. Cardiovascular S1, S2. Abdomen soft. Nervous System are no edema. No focal deficits. ABDOMEN: Soft, nontender, and creatinine improved to 1.38, so the patient is being discharged in stable condition with the following advice and medications: 1. Diet is cardiac, soft, no low residue. 2. Activity limited until followup. 3. Follow up with Dr. Arnaud Gonsalez in 2-3 days. 4. Follow up with surgery as recommended. 5. Followup with nephrology as recommended. 6. Follow up with Nephrology as recommended. DISCHARGE MEDICATIONS: 1. Aspirin 160 mg p.o. daily. 2. Ativan 0.1 mg t.i.d. p.r.n. 3. Coenzyme Q 100 mg. 4. Coreg 25 mg b.i.d. 5. Crestor 10 mg q.h.s. 6. Cymbalta 60 mg daily. 7. Fish oil 1 p.o. daily. 8. Lasix 20 mg Monday, Monday, Monday, , Monday and 40 mg Monday, Monday. 9. Multivitamins 1 p.o. daily. 10.Nitrostat 0.4 mg p.r.n. 11.Pamelor 50 mg q.h.s. 12.Terazosin 2 mg q.h.s. 13.Tylenol 500 mg daily p.r.n. 14.Ultram 50 mg b.i.d. p.r.n. 15.Victoza 2 pack 0.6 daily. 16.Vitamin D2 50,000 Q 14 days Zestril 40 mg p.o. daily. 17.Zyloprim 100 mg p.o. b.i.d. 18.Antivert 12.5 mg t.i.d. p.r.n. 19.Bentyl 10 mg p.o. q.i.d. p.r.n. 20.Protonix 40 mg daily. 21.Cholestyramine 4 g p.o. b.i.d. 22.Zofran 4 mg q.8 p.r.n. 23.Levaquin 500 mg daily for 1 week. Once again the patient will be discharged in stable condition with guarded prognosis. MMODL / IJN: [id number] /
[2018-11-13] MEDS ORDERED: LISINOPRIL 20 MG TAB PO SCH (09:00)
[2018-11-15] MEDS ORDERED: ERGOCALCIFEROL 50,000 UNIT CAP PO SCH (09:00)
== END 2018-11-12 14:55 | disposition home or self-care (01) | DRG 917 ==
LOC: EC 17:44 → 4MS4W 21:20
PROVIDERS: ADMIT Hospitalist; ATTEND Hospitalist
DX: T62.8X1A Toxic effect of other specified noxious substances eaten as food, accidental (unintentional), initial encounter (principal); N17.0 Acute kidney failure with tubular necrosis; K52.1 Toxic gastroenteritis and colitis; N17.9 Acute kidney failure, unspecified; K56.600 Partial intestinal obstruction, unspecified as to cause; E87.2 Acidosis; E11.9 Type 2 diabetes mellitus without complications; I10 Essential (primary) hypertension; I25.10 Atherosclerotic heart disease of native coronary artery without angina pectoris; I12.9 Hypertensive chronic kidney disease with stage 1 through stage 4 chronic kidney disease, or unspecified chronic kidney disease; N18.3 Chronic kidney disease, stage 3 (moderate); E11.22 Type 2 diabetes mellitus with diabetic chronic kidney disease; E78.5 Hyperlipidemia, unspecified; J43.9 Emphysema, unspecified; K29.70 Gastritis, unspecified, without bleeding; M79.7 Fibromyalgia; F41.9 Anxiety disorder, unspecified; E86.9 Volume depletion, unspecified; I25.2 Old myocardial infarction; Z79.82 Long term (current) use of aspirin; Z79.899 Other long term (current) drug therapy; Z80.8 Family history of malignant neoplasm of other organs or systems; Z95.5 Presence of coronary angioplasty implant and graft; Z90.49 Acquired absence of other specified parts of digestive tract; Z90.89 Acquired absence of other organs; Z98.890 Other specified postprocedural states
CPT/HCPCS: 36415; 74018; 74019; 74176; 74177; 80048; 80053; 80074; 81001; 82150; 83605; 83690; 84484; 85025; 87040; 87045; 87046; 87086; 87324; 93306; 96361; 96365; 96374; 96375; 96376; 99284; 99285

== ENCOUNTER → 2018-11-16 | Outpatient (CLI) | payer MEDICARE, BC ==
[2018-11-16 10:55] LABS: Basophils % (A) 1 %; Eosinophils # (A) 0.1 k/uL (0-0.7); Eosinophils % (A) 2 %; HCT 46.5 % (39.0-53.0); HGB 15.5 gm/dL (13.0-17.5); Lymphocytes # (A) 1.7 k/uL (1.0-4.8); Lymphocytes % (A) 26 %; MCH 30.7 pg (25.0-35.0); MCHC 33.2 g/dL (31.0-37.0); MCV 92.5 fL (80.0-100.0); Mean Platelet Volume 7.5; Monocytes # (A) 0.4 k/uL (0-1.0); Monocytes % (A) 6 %; Neutrophils % (A) 62 %; Platelet Count 168 k/uL (150-450); RBC 5.03 m/uL (4.30-5.90); RDW 14.1 % (11.5-15.5); WBC 6.4 k/uL (3.8-10.6)
[2018-11-16 16:04] LABS: African American GFR (CKD) 39.7 (60.0-200.0); Anion Gap 9.7 mmol/L (4.00-12.00); BUN/Creat Ratio 13.16 Ratio (12.00-20.00); Carbon Dioxide 26.3 mmol/L (21.6-31.8); Potassium 4.2 mmol/L (3.5-5.5)
== END | disposition home or self-care (01) ==
LOC: LABWHC1 10:03
PROVIDERS: ATTEND Registered Nurse
DX: J18.9 Pneumonia, unspecified organism (principal)
CPT/HCPCS: 36415; 80048; 85025

== ENCOUNTER 2018-12-28 17:32 | Inpatient (IN) | payer BC, MEDICARE ==
[2018-12-28] MEDS ORDERED: PANTOPRAZOLE 40 MG/10 ML VIAL IVP STA (18:00)
[2018-12-28] MEDS ORDERED: SODIUM CHLORIDE 0.9% 1,000 ML IV STA ×3 (18:00→18:08)
[2018-12-28] MEDS ORDERED: SODIUM CHLORIDE 0.9% 500 ML 500 ML IV STA (18:08)
--- NOTE | 2018-12-28 18:23 | ED ---
Nausea/Vomiting/Diarrhea HPI - General Chief complaint: Nausea/Vomiting/Diarrhea Stated complaint: N & V Time Seen by Provider: 12/28/18 17:40 Source: patient, EMS, RN notes reviewed, old records reviewed Mode of arrival: EMS Limitations: no limitations - History of Present Illness Initial comments: This is a 73-year-old male the ER for evaluation presents today for evaluation regards to nausea vomiting diarrhea. Severe symptoms started today may be related to food ALLERGY last night. Patient is significant medical history and surgical history, colitis with bowel resection, has had his gallbladder removed. Patient was impatient about 2 months ago with air and is bowel wall he did have an NG tube at the time. Symptoms were similar to this time but he had significant abdominal pain as well back pain. No current fevers. No abdominal pain currently. MD complaint: nausea, vomiting, diarrhea -: hour(s) Description of Vomiting: food contents, watery Description of Diarrhea: water Associated Abdominal Pain: Yes Radiation: none Severity: mild Severity scale (1-10): 2 Quality: aching Consistency: constant Improves with: none Worsens with: none Associated Symptoms: loss of appetite, malaise, nausea/vomiting, weakness - Related Data Home Medications Medication Instructions Recorded Confirmed Allopurinol [Zyloprim] 100 mg PO BID 09/25/16 12/28/18 Aspirin [Adult Low Dose Aspirin EC] 162 mg PO DAILY 09/25/16 12/28/18 Carvedilol [Coreg] 25 mg PO BID 09/25/16 12/28/18 DULoxetine HCL [Cymbalta] 60 mg PO DAILY 09/25/16 12/28/18 Ergocalciferol [Vitamin D2 50,000 unit PO Q14D 09/25/16 12/28/18 (DRISDOL)] Furosemide [Lasix] 20 mg PO SUTUWETHSA 09/25/16 12/28/18 LORazepam [Ativan] 1 mg PO TID PRN 09/25/16 12/28/18 Liraglutide [Victoza 2-Seferino] 0.6 mg SQ DAILY 09/25/16 12/28/18 Lisinopril [Zestril] 40 mg PO DAILY 09/25/16 12/28/18 Multivitamins, Thera [Multivitamin 1 tab PO DAILY 09/25/16 12/28/18 (formulary)] Nitroglycerin Sl Tabs [Nitrostat] 0.4 mg SUBLINGUAL Q5M PRN 09/25/16 12/28/18 Nortriptyline HCl [Pamelor] 50 mg PO HS 09/25/16 12/28/18 [place]-3/Dha/Epa/Fish Oil [Fish Oil 1 cap PO DAILY 09/25/16 12/28/18 1,360 mg Softgel] Rosuvastatin [Crestor] 10 mg PO HS 09/25/16 12/28/18 Ubidecarenone [Co Q-10] 100 mg PO DAILY 09/25/16 12/28/18 Furosemide [Lasix] 40 mg PO MOFR 11/11/16 12/28/18 traMADol HCl [Ultram] 50 mg PO BID PRN 02/02/17 12/28/18 Terazosin HCl 2 mg PO HS 11/07/18 12/28/18 Allergies Allergy/AdvReac Type Severity Reaction Status Date / Time adhesive tape Allergy Rash/Hives Verified 12/28/18 17:54 Penicillins Allergy Itching Verified 12/28/18 17:54 NSAIDS (Non-Steroidal AdvReac Unknown UNABLE TO Verified 12/28/18 17:54 Anti-Inflamma TAKE DUE TO KIDNEY DISEASE. prednisone AdvReac DEPRESSION Verified 12/28/18 17:54 WITH LARGE DOSES Review of Systems ROS Statement: Those systems with pertinent positive or pertinent negative responses have been documented in the HPI. ROS Other: All systems not noted in ROS Statement are negative. 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 Bladder surgery Last Myocardial Infarction Date:: 2010 History of Any Multi-Drug Resistant Organisms: None Reported Past Surgical History: Appendectomy, Bowel Resection, Cholecystectomy, Heart Catheterization With Stent Additional Past Surgical History / Comment(s): Colon Resection Feb 2017 Past Anesthesia/Blood Transfusion Reactions: No Reported Reaction, Motion Sickness Date of Last Stent Placement:: 2010 Past Psychological History: Anxiety Smoking Status: Never smoker Past Alcohol Use History: None Reported Past Drug Use History: None Reported - Past Family History Father Family Medical History: Blood Disorder Mother Family Medical History: Cancer Additional Family Medical History / Comment(s): Melanoma General Exam Limitations: no limitations General appearance: alert, in no apparent distress, anxious Head exam: Present: atraumatic, normocephalic, normal inspection Eye exam: Present: normal appearance, EOMI. Absent: scleral icterus, conjunctival injection, periorbital swelling ENT exam: Present: normal exam, mucous membranes dry Neck exam: Present: normal inspection. Absent: tenderness, meningismus, lymphadenopathy Respiratory exam: Present: normal lung sounds bilaterally. Absent: respiratory distress, wheezes, rales, rhonchi, stridor Cardiovascular Exam: Present: normal rhythm, tachycardia, normal heart sounds. Absent: systolic murmur, diastolic murmur, rubs, gallop, clicks GI/Abdominal exam: Present: soft, normal bowel sounds. Absent: distended, tenderness, guarding, rebound, rigid Extremities exam: Present: normal inspection, full ROM, normal capillary refill. Absent: tenderness, pedal edema, joint swelling, calf tenderness Back exam: Present: normal inspection Neurological exam: Present: alert, oriented X3, CN II-XII intact Psychiatric exam: Present: normal affect, normal mood Skin exam: Present: warm, dry, intact, normal color. Absent: rash Course Vital Signs 12/28/18 17:38 Temperature 98.8 F Pulse Rate 115 H Respiratory 18 Rate Blood Pressure 131/78 O2 Sat by Pulse 98 Oximetry - Reevaluation(s) Reevaluation #1: 12/28/18 18:22 Medical record recent inpatient hospitalization is reviewed Reevaluation #2: 12/28/18 20:20 Patient continues to have decreased vomiting episodes but does still see feels significantly nauseous - Consultations Consultation #1: Spoke With Dr. Denney who will admit for DrEros consult for Dr. Oliver will prefer hospital admission Consultation #2: spoke w Dr. Post was agreeable for the admission Medical Decision Making - Medical Decision Making 73 male the ER for evaluation intractable nausea vomiting, patient is emphysematous gastritis will admit for IV hydration patient will consult by Dr. Anaya for general surgery does feel better - Lab Data Result diagrams: 12/28/18 18:51 12/28/18 18:51 Lab Results 12/28/18 12/28/18 12/28/18 Range/Units 18:51 18:51 18:51 WBC 6.7 (3.8-10.6) k/uL RBC 5.54 (4.30-5.90) m/uL Hgb 17.2 (13.0-17.5) gm/dL Hct 49.7 (39.0-53.0) % MCV 89.7 (80.0-100.0) fL MCH 31.0 (25.0-35.0) pg MCHC 34.6 (31.0-37.0) g/dL RDW 14.0 (11.5-15.5) % Plt Count 130 L (150-450) k/uL Neutrophils % (Manual) 62 % Band Neutrophils % 12 % Lymphocytes % (Manual) 13 % Monocytes % (Manual) 11 % Eosinophils % (Manual) 1 % Basophils % (Manual) 1 % Neutrophils # (Manual) 4.90 (1.3-7.7) k/uL Lymphocytes # (Manual) 0.87 L (1.0-4.8) k/uL Monocytes # (Manual) 0.74 (0-1.0) k/uL Eosinophils # (Manual) 0.07 (0-0.7) k/uL Basophils # (Manual) 0.07 (0-0.2) k/uL Nucleated RBCs 0 (0-0) /100 WBC Manual Slide Review Performed PT (9.0-12.0) sec INR (<1.2) APTT (22.0-30.0) sec Sodium 143 (137-145) mmol/L Potassium 4.9 (3.5-5.1) mmol/L Chloride 107 (98-107) mmol/L Carbon Dioxide 22 (22-30) mmol/L Anion Gap 14 mmol/L BUN 34 H (9-20) mg/dL Creatinine 1.94 H (0.66-1.25) mg/dL Est GFR (CKD-EPI)AfAm 39 (>60 ml/min/1.73 sqM) Est GFR (CKD-EPI)NonAf 33 (>60 ml/min/1.73 sqM) Glucose 162 H (74-99) mg/dL Plasma Lactic Acid Axel 1.5 (0.7-2.0) mmol/L Calcium 10.0 (8.4-10.2) mg/dL Phosphorus 2.4 L (2.5-4.5) mg/dL Magnesium 2.1 (1.6-2.3) mg/dL Total Bilirubin 0.8 (0.2-1.3) mg/dL AST 30 (17-59) U/L ALT 41 (21-72) U/L Alkaline Phosphatase 77 (38-126) U/L Creatine Kinase 80 (55-170) U/L Troponin I (0.000-0.034) ng/mL Total Protein 8.2 (6.3-8.2) g/dL Albumin 4.8 (3.5-5.0) g/dL Urine Color Urine Appearance (Clear) Urine pH (5.0-8.0) Ur Specific [place] (1.001-1.035) Urine Protein (Negative) Urine Glucose (UA) (Negative) Urine Ketones (Negative) Urine Blood (Negative) Urine Nitrite (Negative) Urine Bilirubin (Negative) Urine Urobilinogen (<2.0) mg/dL Ur Leukocyte Esterase (Negative) Urine RBC (0-5) /hpf Urine WBC (0-5) /hpf Hyaline Casts (0-2) /lpf Urine Mucus (None) /hpf 12/28/18 12/28/18 12/28/18 Range/Units 18:51 18:51 18:51 WBC (3.8-10.6) k/uL RBC (4.30-5.90) m/uL Hgb (13.0-17.5) gm/dL Hct (39.0-53.0) % MCV (80.0-100.0) fL MCH (25.0-35.0) pg MCHC (31.0-37.0) g/dL RDW (11.5-15.5) % Plt Count (150-450) k/uL Neutrophils % (Manual) % Band Neutrophils % % Lymphocytes % (Manual) % Monocytes % (Manual) % Eosinophils % (Manual) % Basophils % (Manual) % Neutrophils # (Manual) (1.3-7.7) k/uL Lymphocytes # (Manual) (1.0-4.8) k/uL Monocytes # (Manual) (0-1.0) k/uL Eosinophils # (Manual) (0-0.7) k/uL Basophils # (Manual) (0-0.2) k/uL Nucleated RBCs (0-0) /100 WBC Manual Slide Review PT 10.1 (9.0-12.0) sec INR 0.9 (<1.2) APTT 23.3 (22.0-30.0) sec Sodium (137-145) mmol/L Potassium (3.5-5.1) mmol/L Chloride (98-107) mmol/L Carbon Dioxide (22-30) mmol/L Anion Gap mmol/L BUN (9-20) mg/dL Creatinine (0.66-1.25) mg/dL Est GFR (CKD-EPI)AfAm (>60 ml/min/1.73 sqM) Est GFR (CKD-EPI)NonAf (>60 ml/min/1.73 sqM) Glucose (74-99) mg/dL Plasma Lactic Acid Axel (0.7-2.0) mmol/L Calcium (8.4-10.2) mg/dL Phosphorus (2.5-4.5) mg/dL Magnesium (1.6-2.3) mg/dL Total Bilirubin (0.2-1.3) mg/dL AST (17-59) U/L ALT (21-72) U/L Alkaline Phosphatase (38-126) U/L Creatine Kinase (55-170) U/L Troponin I <0.012 (0.000-0.034) ng/mL Total Protein (6.3-8.2) g/dL Albumin (3.5-5.0) g/dL Urine Color Yellow Urine Appearance Clear (Clear) Urine pH 6.0 (5.0-8.0) Ur Specific [place] 1.012 (1.001-1.035) Urine Protein 3+ H (Negative) Urine Glucose (UA) Negative (Negative) Urine Ketones Trace H (Negative) Urine Blood Negative (Negative) Urine Nitrite Negative (Negative) Urine Bilirubin Negative (Negative) Urine Urobilinogen <2.0 (<2.0) mg/dL Ur Leukocyte Esterase Negative (Negative) Urine RBC 1 (0-5) /hpf Urine WBC 1 (0-5) /hpf Hyaline Casts 18 H (0-2) /lpf Urine Mucus Rare H (None) /hpf - EKG Data -: EKG Interpreted by Me (EKG shows sinus tach artery pulses, NM 212, QRS 102, [id number]) - Radiology Data Radiology results: report reviewed (CT of abdomen and pelvis positive for emphysematous gastritis), image reviewed Disposition Clinical Impression: Fever, Partial small bowel obstruction, Pneumobilia, Dehydration, Gastritis Disposition: ADMITTED IP TO THIS [facility] Condition: Fair Is patient prescribed a controlled substance at d/c from ED?: No Referrals: Arnaud Gonsalez MD [Primary Care Provider] - 1-2 days
[2018-12-28] MEDS ORDERED: LORazepam 2 MG/ML INJ IV STA (18:45)
[2018-12-28 19:11] LABS: Appearance,Urine Clear (Clear); Bilirubin,Urine Negative (Negative); Blood,Urine Negative (Negative); Color,Urine Yellow; Glucose,Urine (UA) Negative (Negative); Hyaline Casts,Urine 18 /lpf (0-2); Ketones,Urine Trace (Negative); Leukocyte Esterase,Urine Negative (Negative); Mucus,Urine Rare /hpf; Nitrite,Urine Negative (Negative); Protein,Urine 3+ (Negative); RBC,Urine 1 /hpf (0-5); Specific Gravity,Urine 1.012 (1.001-1.035); Urobilinogen,Urine <2.0 mg/dL (<2.0); WBC,Urine 1 /hpf (0-5)
[2018-12-28 19:15] LABS: INR 0.9 (<1.2); Partial Thromboplastin Time 23.3 sec (22.0-30.0); Prothrombin Time 10.1 sec (9.0-12.0)
[2018-12-28 19:17] LABS: Albumin 4.8 g/dL (3.5-5.0); Total Protein 8.2 g/dL (6.3-8.2)
[2018-12-28 19:18] LABS: Magnesium 2.1 mg/dL (1.6-2.3); Phosphorus 2.4 mg/dL (2.5-4.5); Potassium 4.9 mmol/L (3.5-5.1); Total Bilirubin 0.8 mg/dL (0.2-1.3)
[2018-12-28 19:20] LABS: HCT 49.7 % (39.0-53.0); HGB 17.2 gm/dL (13.0-17.5); MCHC 34.6 g/dL (31.0-37.0); MCV 89.7 fL (80.0-100.0); Mean Platelet Volume 7.8; Platelet Count 130 k/uL (150-450); RBC 5.54 m/uL (4.30-5.90); WBC 6.7 k/uL (3.8-10.6)
[2018-12-28] MEDS ORDERED: ONDANSETRON 4 MG/2 ML VIAL IVP STA (19:28)
[2018-12-28 19:37] LABS: Band Neutrophils % 12 %; Basophils # (M) 0.07 k/uL (0-0.2); Eosinophils # (M) 0.07 k/uL (0-0.7); Lymphocytes # (M) 0.87 k/uL (1.0-4.8); Monocytes # (M) 0.74 k/uL (0-1.0); Neutrophils % (M) 62 %; Nucleated Red Blood Cells 0 /100 WBC (0-0); Total Cells Counted 100
--- NOTE | 2018-12-28 20:15 | CT ---
EXAMINATION TYPE: CT abdomen pelvis wo con DATE OF EXAM: 12/28/2018 COMPARISON: 11/08/2018 HISTORY: nausea and vomiting CT DLP: 695.9 mGycm Automated exposure control for dose reduction was used. TECHNIQUE: Helical acquisition of images was performed from the lung bases through the pelvis. FINDINGS: There is subsegmental atelectasis at the posterior lung bases. There is no pleural effusion. Heart si ze is normal. There is tiny amount of extraluminal air on the posterior aspect of the gastric fundus. There is unus ual air collection in the posterior gastric fundus along the wall. This area is reduced compared to l ast CT scan. There is relative thinning of the gastric wall involving the fundus. There is suggestion of tiny amount of air in the portal venous system within the liver. Liver shows n o discrete mass. Spleen appears normal. There is no pancreatic mass. Gallbladder is not seen. The sameera e ducts are not dilated. There is no adrenal mass. There is fat stranding around both kidneys. There is no hydronephrosis. Ure ters are not dilated. There is no evidence of a renal mass. There is no retroperitoneal adenopathy. B ladder distends smoothly. Prostate measures 5 cm. There is no inguinal hernia. There is no free fluid in the pelvis. There is previous surgery with resection of the sigmoid colon. There are a few divert icula in the descending colon. There is no sign of diverticulitis. There is no ascites. There is no s ign of free air. There is no mesenteric edema. There are spondylotic changes in the lumbar spine with narrowing of elbow to 3 L3-4 disc spaces and spur formation. There is a relative spinal stenosis at L3-4 due to posterior spurring. IMPRESSION: THERE IS UNUSUAL AIR INVOLVING THE WALL OF THE POSTERIOR GASTRIC FUNDUS AND ALSO TINY AMOUNT OF EXTRA LUMINAL AIR THAT IS CONSISTENT WITH EMPHYSEMATOUS GASTRITIS. THIS IS OVERALL significantly REDUCED CO MPARED TO LAST CT SCAN. THERE IS SUGGESTION OF TINY AMOUNTS OF PORTAL VENOUS AIR WITHIN THE LIVER THAT IS A CHANGE COMPARED T O OLD CT SCAN. THERE IS SUBSEGMENTAL ATELECTASIS AT THE LUNG BASES IMPROVED COMPARED TO OLD EXAM. MILD COLONIC DIVER TICULOSIS WITHOUT DIVERTICULITIS. PREVIOUS SURGERY.
[2018-12-28] MEDS ORDERED: SODIUM CHLORIDE 0.9% 1,000 ML IV ONE (21:10)
[2018-12-28] MEDS ORDERED: LEVOFLOXACIN 750MG-D5W PMX 750 MG in DEXTROSE/WATER 1 150ML.BAG IVPB STA (21:10)
[2018-12-28] MEDS ORDERED: metroNIDAZOLE-NS PMX 500 MG in SALINE 1 100ML.BAG IVPB STA (21:10)
[2018-12-28] MEDS ORDERED: ACETAMINOPHEN TAB 500 MG TAB PO STA (21:34)
[2018-12-28] MEDS ORDERED: ACETAMINOPHEN TAB 325 MG TAB PO PRN (23:02)
[2018-12-28] MEDS: LORazepam 2 MG/ML INJ IV PRN (23:19)
[2018-12-29] MEDS: ACETAMINOPHEN IV (For NPO) 1,000 MG in EMPTY BAG 1 BAG IVPB SCH ×2 (00:05→04:06)
[2018-12-29] MEDS: ONDANSETRON 4 MG/2 ML VIAL IVP PRN ×3 (04:06→14:54)
[2018-12-29] MEDS: LACTATED RINGERS 1,000 ML IV SCH ×3 (04:10→15:02)
[2018-12-29 07:15] LABS: Glucose,Whole Blood 105 mg/dL (75-99)
[2018-12-29] MEDS: metroNIDAZOLE-NS PMX 500 MG in SALINE 1 100ML.BAG IVPB SCH ×3 (08:08→23:00)
[2018-12-29] MEDS: PANTOPRAZOLE 40 MG/10 ML VIAL IVP SCH (08:08)
[2018-12-29 11:26] LABS: Glucose,Whole Blood 125 mg/dL (75-99)
--- NOTE | 2018-12-29 13:32 | CONS ---
CONSULTATION DATE OF DICTATION: 12/29/2018 REASON FOR CONSULTATION: Acute onset of nausea, vomiting, diarrhea since yesterday morning. HISTORY OF PRESENT ILLNESS: The patient is a 73-year-old pleasant white male who came to the emergency room yesterday afternoon complaining of acute onset of severe nausea, vomiting and diarrhea that started in the morning at 8:00. He had at least 20 to 25 episodes of emesis and at the same time had loose bowel movements, 15 to 20. He came to the emergency room. Subsequently he had CT of the abdomen and pelvis done in the ER that showed a small amount of extraluminal air in the posterior aspect of the gastric fundus and also a suggestion of a small amount of air in the portal venous system in the liver. The patient presently denies any abdominal pain. Since being in the hospital, the nausea and vomiting have completely resolved. He still had 2 loose watery bowel movements this morning. No bleeding. No fever, chills, night sweats. However, last night he had a temperature of 100.1. He had a similar episode 4 weeks ago and he was hospitalized on November 07, 2018, with a similar presentation and subsequently was diagnosed with partial small bowel obstruction and emphysematous gastritis. The patient, however, was treated symptomatically with IV antibiotics and NG tube and was discharged home. In between the 2 hospitalizations, the patient was asymptomatic. He has history of acute recurrent diverticulitis and underwent sigmoid colon resection in 2017. PAST MEDICAL HISTORY: His past medical history is significant for: 1. Hypertension. 2. Hyperlipidemia. 3. Diabetes mellitus. 4. Coronary artery disease. 5. Fibromyalgia. 6. Stage III chronic kidney disease. PAST SURGICAL HISTORY: 1. Appendectomy. 2. Sigmoid resection for acute recurrent diverticulitis. 3. Cholecystectomy. 4. Cardiac catheterization with stent placement. MEDICATIONS: Medications at home include: 1. Pamelor. 2. Nitrostat. 3. Multivitamin. 4. Zestril. 5. Victoza. 6. Ativan. 7. Lasix. 8. Drisdol. 9. Cymbalta. 10.Coreg. 11.Aspirin. 12.Zyloprim. 13.Ultram. 14.Terazosin. ALLERGIES: 1. PENICILLIN. 2. NSAIDS. 3. PREDNISONE. SOCIAL HISTORY: No smoking. No alcohol use. FAMILY HISTORY: Father with some kind of a blood disorder. Mother had melanoma. REVIEW OF SYSTEMS: CARDIOPULMONARY: No chest pain or shortness of breath. GENITOURINARY: No dysuria or hematuria. MUSCULOSKELETAL: Unremarkable. SKIN: Unremarkable. ENDOCRINE: Unremarkable. PSYCHIATRIC: Unremarkable. NEUROLOGY: Unremarkable. ENT/VISION: Unremarkable. CONSTITUTIONAL: No recent weight loss. No fever, chills, night sweats. PHYSICAL EXAMINATION: He appears comfortable. No apparent distress. VITAL SIGNS: Stable. Blood pressure is 129/72, pulse rate 72, temperature 98.4. T-max was 100.8. HEENT examination unremarkable. Conjunctivae pink. Sclerae anicteric. Oral cavity no lesions. NECK: No JVD or lymph node enlargement. CHEST: Clear to auscultation. HEART: Regular rate and rhythm. ABDOMEN: Soft. Bowel sounds are positive. No organomegaly. EXTREMITIES: No pedal edema. SKIN: No rashes. NEUROLOGIC: Alert and oriented x3. No focal deficits. LABS/IMAGING: Labs done at the time of admission to the hospital showed WBC 6.7, hemoglobin 17.2, platelets 130, BUN 34, creatinine 1.94. ALT, AST, T-bilirubin and alkaline phosphatase are within normal limits. Urinalysis was negative. CT of the abdomen and pelvis showed a small amount of air in the portal venous system in the liver as well as in the gastric fundus. IMPRESSION: Acute onset of nausea, vomiting, diarrhea since yesterday morning at 8 a.m. Patient had several episodes, very suggestive of acute gastroenteritis, probably viral/bacterial in etiology. The patient had a similar episode exactly a month ago, at which time he was hospitalized and a CT scan done at that time showed severe emphysematous gastritis/partial small bowel obstruction and was treated symptomatically and was treated with empiric antibiotics and NG decompression, and patient responded well. In between the episodes patient was asymptomatic. At this time we are most likely dealing with an infectious etiology. Repeat CT scan of the abdomen done yesterday once again showed a small amount of air in the wall of the gastric fundus as well as in the portal venous system. The patient was empirically started on Levaquin and Flagyl and is doing better this morning. RECOMMENDATIONS: 1. Obtain stool studies. 2. Continue with empiric antibiotics. 3. Await surgical recommendations. 4. Keep him n.p.o. for now. We will follow him closely during his hospital stay. Thank you for this consultation. MMOZIELL / IJN: [id number] /
[2018-12-29] MEDS ORDERED: CEFEPIME 2 GM in SODIUM CHLORIDE 0.9% 100 ML IVPB SCH (14:00)
--- NOTE | 2018-12-29 15:02 | HP ---
HISTORY AND PHYSICAL CHIEF COMPLAINT: [id number]-old male comes in with nausea, vomiting, diarrhea. States possible food allergy last night. He has had colitis, bowel resection. Gallbladder has been removed. He was inpatient 2 months ago with air in his bowel and he had an NG tube similar to this time, but he had significant abdominal pain with back pain at that point. No fevers. No abdominal pain. He has some nausea, vomiting diarrhea. Contents are watery, mild severity improves with nothing. Lost appetite, malaise, nausea, vomiting, weakness. HOME MEDICATIONS: 1. Zyloprim 100 mg b.i.d. 2. Cymbalta 60 mg daily. 3. Coreg 25 b.i.d. 4. Aspirin 162 mg daily. 5. Lasix 20 mg daily. 6. Ativan 1 mg t.i.d. 7. Victoza 0.6 mg subcutaneously daily. 8. Zestril 40 mg daily. 9. Multivitamin daily. 10.Nitrostat daily. 11.Pamelor 50 mg daily. 12.Crestor 10 mg daily. 13.Lasix 40 mg Monday and Monday. 14.Tramadol 50 b.i.d. p.r.n. 15.Terazosin 2 mg at bedtime. ALLERGIES: 1. ADHESIVE TAPE. 2. PENICILLIN. 3. NSAIDS. 4. PREDNISONE. PAST MEDICAL HISTORY: 1. Coronary artery disease. 2. Diabetes mellitus. 3. Fibromyalgia. 4. Dyslipidemia. 5. Hypertension. 6. Myocardial infarction. 7. Renal disease. 8. Syncope. 9. Gout. 10.Diverticulitis. 11.Stage III renal disease. 12.Bladder surgery. 13.History of anxiety. SURGERIES: 1. Appendectomy. 2. Bowel resection. 3. Cholecystectomy. 4. Heart catheterization with stent. 5. Colon resection February 2017. 6. History of anxiety. SOCIAL HISTORY: Never smoked. No alcohol. No illicit drugs. FAMILY HISTORY: Father with blood disorder. Mother with cancer melanoma. PHYSICAL EXAMINATION: Vital signs stable. Afebrile. HEMATOLOGY: Negative Homans. PSYCH: Fair mood and affect. NEUROLOGIC: Alert and oriented x3. GI: Increased some tenderness to palpation, epigastric area. No mass or organomegaly. VASCULAR: Normal dorsalis pedis, posterior tibial pulse. OPHTHALMOLOGIC: Pupils equal, round, reactive to light and accommodation. BUN is 34, creatinine 1.94. ASSESSMENT: 1. Emphysematous gastritis. IV hydration. Surgical consultation. 2. Dehydration. 3. Acute on chronic renal insufficiency. Admit the patient. Surgical and GI consult. Continue with fluid rehydration. Home medicines will be ordered. CT scan was reviewed. 4. Partial small-bowel obstruction. 5. Pneumobilia. 6. Gastritis. 7. Fever. Continue current treatment. MMODL / IJN: [id number] /
[2018-12-29] MEDS: FLUCONAZOLE IN NACL,ISO-OSM 200 MG in SALINE 1 100ML.BAG IVPB SCH (15:04)
[2018-12-29] MEDS: LORazepam 2 MG/ML INJ IV PRN ×2 (15:16→21:50)
--- NOTE | 2018-12-29 15:37 | P.GSCN ---
History of Present Illness Consult date: 12/29/18 History of present illness: CHIEF COMPLAINT: Abnormal CT of the abdomen with intractable nausea and vomiting HISTORY OF PRESENT ILLNESS: The patient is a 73 year old male who comes in with recurrent epigastric abdominal pain with nausea and vomiting from 1 month ago. His last attack was almost 2 months ago. No reports of blood in stools. He had initial nausea and vomiting that has now resolved after eating a regular diet. He was hospitalized in the past 2 months with similar symptoms which is now resolved with conservative management. Today, he is doing well. No abdominal pain. He reports eating the same meal his had, hence not food poisoning. General surgery is consulted for abnormal CT for pneumobilia. PAST MEDICAL HISTORY: See list. PAST SURGICAL HISTORY: See list. MEDICATIONS: See list. ALLERGIES: See list. SOCIAL HISTORY: See list. FAMILY HISTORY: See list. REVIEW OF ORGAN SYSTEMS: CONSTITUTIONAL: No fevers or chills. EYES: Denies any trouble with vision. No glasses. HEENT: No difficulties with hearing. No nosebleeds. No difficulty swallowing. RESPIRATORY: Denies pneumonia. Denies any troubles with breathing or dyspnea on exertion. CARDIOVASCULAR: Has coronary artery disease. Has hypertension. Past myocardial infarction with stent placement. GASTROINTESTINAL: Denies fatty food intolerance. Denies change in bowel habits and gas bloat. GENITOURINARY: Has chronic kidney disease. NEUROLOGICAL: Denies any numbness or tingling along the distal extremities. No seizure disorders or headaches. Has fibromyalgia. Has syncope. MUSCULOSKELETAL: Has back pain, stiffness or joint arthritis. Has gout. SKIN: No current skin cancer. No rash. PSYCHIATRIC: Denies current depression or suicidal thoughts. Has anxiety. ENDOCRINE: Denies current thyroid disorders. Has blood sugar glucose intolerance. HEME/LYMPHATIC: Denies any lumps and bumps around the neck. No recent deep venous thrombosis. ALLERGY/IMMUNOLOGY: No immunoglobulin therapy. No immune deficiencies. BREAST: Denies current breast lumps, pain or nipple discharge. PHYSICAL EXAM: VITALS: Reviewed CONSTITUTIONAL: Well developed and in no acute distress. EYES: Conjuctivae without sclera icterus. Pupils are equally round and reactive to light. Extraocular movements grossly intact. HEAD, EARS, NOSE, THROAT: Moist buccal mucosa. Head is atraumatic, normocephalic. Hears conversational speech. No nasal drainage. NECK: Supple. No JV distention. No thyroidomegaly. RESPIRATORY: Non-labored respirations and equal bilateral excursions. No gross wheezes. CARDIOVASCULAR: Regular rate and rhythm. Extremities without moderate edema. Palpable 2+ radial pulses. ABDOMEN: Soft. Non-tender. Nondistended. LYMPH: No neck lymphadenopathy. No axillary lymphadenopathy. MUSCULOSKELETAL: Gait within normal limits. Range of motion bilateral upper extremities within normal limits. Nail and fingers with good capillary refill. SKIN: Warm and well perfused with good skin turgor. NEUROLOGIC: Cranial nerves I through XII grossly intact. Sensation upper and extremities intact. No focal or lateralizing signs. PSYCH: Appropriate affect. Alert and oriented to person, place and time. Displays appropriate insight. CLINCAL LABS: Reviewed. WBC 6,700 and normal RADIOLOGY: Report reviewed shows improved pneumobilia and emphysema of the stomach improved. IMAGING: Independently reviewed showed no moderate free air. No small bowel obstruction. ASSESSMENT: 1. Abnormal computed tomography scan 2. Abdominal pain with intractable nausea and vomiting 3. Pneumobilia PLAN: 1. May have liquids as abdominal pain is improved 2. May benefit from EGD. Thank you for this kind consultation. 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 Bladder surgery Last Myocardial Infarction Date:: 2010 History of Any Multi-Drug Resistant Organisms: None Reported Past Surgical History: Appendectomy, Bowel Resection, Cholecystectomy, Heart Catheterization With Stent Additional Past Surgical History / Comment(s): Colon Resection Feb 2017 Past Anesthesia/Blood Transfusion Reactions: No Reported Reaction, Motion Sickness Date of Last Stent Placement:: 2010 Past Psychological History: Anxiety Additional Psychological History / Comment(s): . Smoking Status: Never smoker Past Alcohol Use History: None Reported Past Drug Use History: None Reported - Past Family History Father Family Medical History: Blood Disorder Mother Family Medical History: Cancer Additional Family Medical History / Comment(s): Melanoma Medications and Allergies Home Medications Medication Instructions Recorded Confirmed Type Allopurinol [Zyloprim] 100 mg PO BID 09/25/16 12/28/18 History Aspirin [Adult Low Dose Aspirin EC] 162 mg PO DAILY 09/25/16 12/28/18 History Carvedilol [Coreg] 25 mg PO BID 09/25/16 12/28/18 History DULoxetine HCL [Cymbalta] 60 mg PO DAILY 09/25/16 12/28/18 History Ergocalciferol [Vitamin D2 50,000 unit PO Q14D 09/25/16 12/28/18 History (DRISDOL)] Furosemide [Lasix] 20 mg PO SUTUWETHSA 09/25/16 12/28/18 History LORazepam [Ativan] 1 mg PO TID PRN 09/25/16 12/28/18 History Liraglutide [Victoza 2-Seferino] 0.6 mg SQ DAILY 09/25/16 12/28/18 History Lisinopril [Zestril] 40 mg PO DAILY 09/25/16 12/28/18 History Multivitamins, Thera [Multivitamin 1 tab PO DAILY 09/25/16 12/28/18 History (formulary)] Nitroglycerin Sl Tabs [Nitrostat] 0.4 mg SUBLINGUAL Q5M PRN 09/25/16 12/28/18 History Nortriptyline HCl [Pamelor] 50 mg PO HS 09/25/16 12/28/18 History Baldwin-3/Dha/Epa/Fish Oil [Fish Oil 1 cap PO DAILY 09/25/16 12/28/18 History 1,360 mg Softgel] Rosuvastatin [Crestor] 10 mg PO HS 09/25/16 12/28/18 History Ubidecarenone [Co Q-10] 100 mg PO DAILY 09/25/16 12/28/18 History Furosemide [Lasix] 40 mg PO MOFR 11/11/16 12/28/18 History traMADol HCl [Ultram] 50 mg PO BID PRN 02/02/17 12/28/18 History Terazosin HCl 2 mg PO HS 11/07/18 12/28/18 History Allergies Allergy/AdvReac Type Severity Reaction Status Date / Time adhesive tape Allergy Rash/Hives Verified 12/28/18 17:54 Penicillins Allergy Itching Verified 12/28/18 17:54 NSAIDS (Non-Steroidal AdvReac Unknown UNABLE TO Verified 12/28/18 17:54 Anti-Inflamma TAKE DUE TO KIDNEY DISEASE. prednisone AdvReac DEPRESSION Verified 12/28/18 17:54 WITH LARGE DOSES Surgical - Exam Vital Signs Temp Pulse Resp BP Pulse Ox 98.8 F 115 H 18 131/78 98 12/28/18 17:38 12/28/18 17:38 12/28/18 17:38 12/28/18 17:38 12/28/18 17:38 Results - Labs 12/28/18 18:51 12/28/18 18:51 Abnormal Lab Results - Last 24 Hours (Table) 12/28/18 12/28/18 12/28/18 Range/Units 18:51 18:51 18:51 Plt Count 130 L (150-450) k/uL Lymphocytes # (Manual) 0.87 L (1.0-4.8) k/uL BUN 34 H (9-20) mg/dL Creatinine 1.94 H (0.66-1.25) mg/dL Glucose 162 H (74-99) mg/dL POC Glucose (mg/dL) (75-99) mg/dL Phosphorus 2.4 L (2.5-4.5) mg/dL Urine Protein 3+ H (Negative) Urine Ketones Trace H (Negative) Hyaline Casts 18 H (0-2) /lpf Urine Mucus Rare H (None) /hpf 12/29/18 12/29/18 Range/Units 07:04 11:25 Plt Count (150-450) k/uL Lymphocytes # (Manual) (1.0-4.8) k/uL BUN (9-20) mg/dL Creatinine (0.66-1.25) mg/dL Glucose (74-99) mg/dL POC Glucose (mg/dL) 105 H 125 H (75-99) mg/dL Phosphorus (2.5-4.5) mg/dL Urine Protein (Negative) Urine Ketones (Negative) Hyaline Casts (0-2) /lpf Urine Mucus (None) /hpf Diabetes panel 12/28/18 Range/Units 18:51 Sodium 143 (137-145) mmol/L Potassium 4.9 (3.5-5.1) mmol/L Chloride 107 (98-107) mmol/L Carbon Dioxide 22 (22-30) mmol/L BUN 34 H (9-20) mg/dL Creatinine 1.94 H (0.66-1.25) mg/dL Glucose 162 H (74-99) mg/dL Calcium 10.0 (8.4-10.2) mg/dL AST 30 (17-59) U/L ALT 41 (21-72) U/L Alkaline Phosphatase 77 (38-126) U/L Total Protein 8.2 (6.3-8.2) g/dL Albumin 4.8 (3.5-5.0) g/dL Calcium panel 12/28/18 Range/Units 18:51 Calcium 10.0 (8.4-10.2) mg/dL Phosphorus 2.4 L (2.5-4.5) mg/dL Albumin 4.8 (3.5-5.0) g/dL Pituitary panel 12/28/18 Range/Units 18:51 Sodium 143 (137-145) mmol/L Potassium 4.9 (3.5-5.1) mmol/L Chloride 107 (98-107) mmol/L Carbon Dioxide 22 (22-30) mmol/L BUN 34 H (9-20) mg/dL Creatinine 1.94 H (0.66-1.25) mg/dL Glucose 162 H (74-99) mg/dL Calcium 10.0 (8.4-10.2) mg/dL Adrenal panel 12/28/18 Range/Units 18:51 Sodium 143 (137-145) mmol/L Potassium 4.9 (3.5-5.1) mmol/L Chloride 107 (98-107) mmol/L Carbon Dioxide 22 (22-30) mmol/L BUN 34 H (9-20) mg/dL Creatinine 1.94 H (0.66-1.25) mg/dL Glucose 162 H (74-99) mg/dL Calcium 10.0 (8.4-10.2) mg/dL Total Bilirubin 0.8 (0.2-1.3) mg/dL AST 30 (17-59) U/L ALT 41 (21-72) U/L Alkaline Phosphatase 77 (38-126) U/L Total Protein 8.2 (6.3-8.2) g/dL Albumin 4.8 (3.5-5.0) g/dL Assessment and Plan (1) Intractable nausea and vomiting Current Visit: Yes Status: Acute Code(s): R11.2 - NAUSEA WITH VOMITING, UNSPECIFIED SNOMED Code(s): 922272382 (2) Gastritis Current Visit: Yes Status: Acute Code(s): K29.70 - GASTRITIS, UNSPECIFIED, WITHOUT BLEEDING SNOMED Code(s): 1441687 (3) Pneumobilia Current Visit: Yes Status: Acute Code(s): K83.8 - OTHER SPECIFIED DISEASES OF BILIARY TRACT SNOMED Code(s): 544096475
[2018-12-29 17:07] LABS: Glucose,Whole Blood 99 mg/dL (75-99)
[2018-12-29 20:19] LABS: Glucose,Whole Blood 129 mg/dL (75-99)
[2018-12-29] MEDS ORDERED: LEVOFLOXACIN 750MG-D5W PMX 750 MG in DEXTROSE/WATER 1 150ML.BAG IVPB SCH (21:00)
[2018-12-30] MEDS: ACETAMINOPHEN IV (For NPO) 1,000 MG in EMPTY BAG 1 BAG IVPB SCH ×2 (00:22→00:23)
[2018-12-30] MEDS: LACTATED RINGERS 1,000 ML IV SCH ×5 (00:23→23:03)
[2018-12-30 06:57] LABS: Glucose,Whole Blood 97 mg/dL (75-99)
[2018-12-30] MEDS: metroNIDAZOLE-NS PMX 500 MG in SALINE 1 100ML.BAG IVPB SCH ×3 (08:31→23:28)
[2018-12-30] MEDS: PANTOPRAZOLE 40 MG/10 ML VIAL IVP SCH (08:36)
[2018-12-30] MEDS: FLUCONAZOLE IN NACL,ISO-OSM 200 MG in SALINE 1 100ML.BAG IVPB SCH (09:54)
--- NOTE | 2018-12-30 11:20 | P.PN ---
Subjective Progress Note Date: 12/30/18 CHIEF COMPLAINT: Abnormal CT of the abdomen with intractable nausea and vomiting HISTORY OF PRESENT ILLNESS: The patient is a 73 year old male who comes in with recurrent epigastric abdominal pain with nausea and vomiting from 1 month ago. His last attack was almost 2 months ago with findings of pneumobilia and pneumoperitoneum as well as emphysematous gastritis. He had clear liquid diet this morning. This afternoon reports mild gas bloat. No nausea or vomiting. His is at bedside who inquires about his labs including positive stool study for lactoferrin. ROS: No recent fevers or chills. No intractable nausea and vomiting.Productive sputum. No chest pain. PHYSICAL EXAM: VITALS: Reviewed CONSTITUTIONAL: Well developed and in no acute distress. EYES: Conjuctivae without sclera icterus. Pupils are equally round and reactive to light. Extraocular movements grossly intact. HEAD, EARS, NOSE, THROAT: Moist buccal mucosa. Head is atraumatic, normocephalic. Hears conversational speech. No nasal drainage. RESPIRATORY: Non-labored respirations and equal bilateral excursions. No gross wheezes. CARDIOVASCULAR: Regular rate and rhythm. Extremities without moderate edema. Palpable 2+ radial pulses. ABDOMEN: Soft. Non-tender. Mild distention. MUSCULOSKELETAL: Gait within normal limits. Range of motion bilateral upper extremities within normal limits. Nail and fingers with good capillary refill. SKIN: Warm and well perfused with good skin turgor. NEUROLOGIC: Cranial nerves I through XII grossly intact. Sensation upper and extremities intact. No focal or lateralizing signs. PSYCH: Appropriate affect. Alert and oriented to person, place and time. Displays appropriate insight. CLINCAL LABS: Reviewed. C. diff negative. Stool lactoferrin positive. ASSESSMENT: 1. Abnormal computed tomography scan 2. Abdominal pain with intractable nausea and vomiting, resolving 3. Pneumobilia 4. Emphysematous gastritis PLAN: 1. Regarding additional stool studies, questions deferred to solution specialist who is on case. 2. Discussion of upper endoscopy also described to help with additional diagnoses. We'll keep nothing by mouth after midnight for upper endoscopy. 3. Do not advance diet. Objective - Vital Signs Vital signs: Vital Signs Temp 99 F 12/30/18 05:00 Pulse 102 H 12/30/18 05:00 Resp 16 12/30/18 05:00 BP 127/59 12/30/18 05:00 Pulse Ox 96 12/30/18 05:00 Intake & Output 12/29/18 12/30/18 12/30/18 18:59 06:59 18:59 Intake Total 300 Balance 300 Intake: Intake, IV Titration 300 Amount Cefepime 2 gm In Sodium 100 Chloride 0.9% 100 ml @ 200 mls/hr IVPB Q24HR [facility] Rx#:[id number] Fluconazole in NaCl,Iso- 100 Osm 200 mg In Saline 1 100ml.bag @ 100 mls/hr IVPB DAILY [facility] Rx#: [id number] metroNIDAZOLE-NS PMX 500 100 mg In Saline 1 100ml.bag @ 100 mls/hr IVPB Q8HR [facility] Rx#:[id number] Other: Voiding Method Toilet Toilet # Voids 1 - Labs CBC & Chem 7: 12/28/18 18:51 12/28/18 18:51 Labs: Abnormal Lab Results - Last 24 Hours (Table) 12/29/18 12/29/18 12/29/18 Range/Units 11:25 11:30 20:18 POC Glucose (mg/dL) 125 H 129 H (75-99) mg/dL Stool Lactoferrin POSITIVE H (NEGATIVE) Microbiology - Last 24 Hours (Table) 12/29/18 11:30 Stool Culture - Preliminary Stool Assessment and Plan (1) Intractable nausea and vomiting Current Visit: Yes Status: Acute Code(s): R11.2 - NAUSEA WITH VOMITING, UNSPECIFIED SNOMED Code(s): 631456820 (2) Gastritis Current Visit: Yes Status: Acute Code(s): K29.70 - GASTRITIS, UNSPECIFIED, WITHOUT BLEEDING SNOMED Code(s): 8237109 (3) Pneumobilia Current Visit: Yes Status: Acute Code(s): K83.8 - OTHER SPECIFIED DISEASES OF BILIARY TRACT SNOMED Code(s): 329632730
[2018-12-30 11:35] LABS: Glucose,Whole Blood 169 mg/dL (75-99)
[2018-12-30] MEDS: LORazepam 2 MG/ML INJ IV PRN ×3 (12:17→22:14)
[2018-12-30] MEDS: CEFEPIME 2 GM in SODIUM CHLORIDE 0.9% 100 ML IVPB SCH (13:06)
[2018-12-30 13:27] LABS: Albumin 3.5 g/dL (3.5-5.0); Calcium 8.7 mg/dL (8.4-10.2); Potassium 3.9 mmol/L (3.5-5.1); Total Bilirubin 0.5 mg/dL (0.2-1.3); Total Protein 6.3 g/dL (6.3-8.2)
--- NOTE | 2018-12-30 13:32 | PN ---
PROGRESS NOTE DATE OF SERVICE: December 30, 2018 Patient is a 73-year-old pleasant white male admitted to the hospital with acute onset of severe nausea, vomiting, diarrhea that started 2 days ago. The symptoms were very intense. Came to the emergency room. CT of the abdomen showed some extraluminal air noted in the fundus of the stomach and air in the portal venous system. He was seen by Dr. Rizzo yesterday. Subsequently started on a clear liquid diet. In the meantime, he is feeling much better. He denies any abdominal pain. The nausea, vomiting has resolved. He continues to have cramping in the lower abdominal area with diarrhea and had about 3-4 loose bowel movements. Stool studies were ordered. C diff was negative. Cultures are still pending. Lactoferrin and occult blood were positive. PHYSICAL EXAMINATION: He appears comfortable. No apparent distress. Vital signs stable. Blood pressure 155/80, pulse 85, temperature 98.7. HEENT examination unremarkable. Conjunctivae pink. Sclerae anicteric. Oral cavity no lesions. NECK: No JVD or lymph node enlargement. CHEST: Clear to auscultation. HEART: Regular rate and rhythm. ABDOMEN: Soft. There was mild tenderness in the lower abdominal area, overall it was a benign abdomen. EXTREMITIES: No pedal edema. SKIN no rashes. NEUROLOGIC: Alert and oriented x3. No focal deficits. LABS: No labs available from today. IMPRESSION: Acute onset of severe nausea, vomiting, diarrhea for the last 2 days duration. The patient had a similar episode about a month ago at which time he was hospitalized for possible partial small bowel obstruction and mild gastritis treated empirically with antibiotics and was discharged home. During this hospitalization, CT scan of the abdomen was done that showed extraluminal along the fundus of the stomach and some portal venous air noted. Clinically, patient has improved from yesterday in regard to the symptoms. He still has no abdominal pain, but continues to have some diarrhea. The presentation is quite consistent with an infectious etiology. The patient presently on broad-spectrum antibiotics with Levaquin and Flagyl and overall feels to be improving. RECOMMENDATIONS: 1. Await rest of the stool studies. 2. Continue with broad-spectrum antibiotics. 3. He is scheduled for an upper endoscopy by Dr. Anaya tomorrow morning. 4. In regard to the diarrhea, we will continue to await the rest of the labs. Consider a colonoscopy on an outpatient basis once the episodes resolve. The plan was discussed with the patient as well as his who was at the bedside. Thank you for this consultation. EDGAR / NAUN: [id number] /
[2018-12-30 13:38] LABS: Basophils % (A) 0 %; Eosinophils # (A) 0.1 k/uL (0-0.7); Eosinophils % (A) 2 %; HCT 40.2 % (39.0-53.0); Lymphocytes # (A) 1.2 k/uL (1.0-4.8); Lymphocytes % (A) 18 %; MCH 30.3 pg (25.0-35.0); MCHC 33.3 g/dL (31.0-37.0); Mean Platelet Volume 7.9; Monocytes # (A) 0.5 k/uL (0-1.0); Monocytes % (A) 7 %; Neutrophils # (A) 4.6 k/uL (1.3-7.7); Neutrophils % (A) 70 %; Platelet Count 136 k/uL (150-450); RBC 4.42 m/uL (4.30-5.90); WBC 6.6 k/uL (3.8-10.6)
[2018-12-30 13:41] LABS: HGB 13.4 gm/dL (13.0-17.5)
[2018-12-30 17:16] LABS: Glucose,Whole Blood 121 mg/dL (75-99)
--- NOTE | 2018-12-30 17:54 | PN ---
PROGRESS NOTE 73-year-old white male, severe nausea, vomiting, diarrhea started 2 days ago, very intense. CT abdomen shows extraluminal air noted in the fundus of the stomach in the portal venous system. He was seen by Surgery and GI doctors. He has hyperactive bowel sounds, 3-4 loose bowel movements a day. C diff is negative. Stool cultures are pending. Vitals vital signs stable. CARDIOVASCULAR: S1, S2. Lungs are clear. GI is increased bowel sounds x4. Skin no rashes. ASSESSMENT: 1. Severe nausea, vomiting, diarrhea, possible gastroenteritis versus partial small bowel obstruction, possible pneumobilia, is on Levaquin, Flagyl, and cefepime. 2. Possible colonoscopy is going to get the EGD tomorrow. 3. Continue broad-spectrum antibiotics for bowel infection. 4. Please see further orders. MMODL / IJN: [id number] /
[2018-12-30 20:10] LABS: Glucose,Whole Blood 192 mg/dL (75-99)
[2018-12-30] MEDS ORDERED: LEVOFLOXACIN 750MG-D5W PMX 750 MG in DEXTROSE/WATER 1 150ML.BAG IVPB SCH (21:00)
--- NOTE | 2018-12-30 22:55 | P.CONS ---
History of Present Illness - Reason for Consult Consult date: 12/29/18 abdominal infection Requesting physician: Chris Triana - Chief Complaint vomiting , abdominal pain x 1 day - History of Present Illness Patient is a 73-year-old male presenting to the ER with chief complaints of sudden onset of abdominal pain nausea and vomiting that woke him up this morning before presentation the hospital the patient did have multiple episodes of vomiting no blood in the vomit has been complaining of pain mostly epigastric area to be burning to sharp about 6-7 out of 10 and radiation and did have 3 episodes of loose stools with the symptom the patient presented to the hospital was evaluated by their physician he did have a CT of abdominal pelvis completed tissues unusual area involving the wall of the posterior gastric fundus and also the most of extraluminal air that is consistent with emphysematous gastritis with a small amount of air in the portal venous system patient on presentation to the hospital did have a low-grade fever of 100.8 patient was tachycardic with heart rate of 122 but his white count was not significantly elevated patient has been started on Levaquin and Flagyl has been admitted to the hospital infectious was consulted for further recommendation about antibiotic patient levels and has been normal and UA has been negative stool for C. difficile is negative with stool cultures currently pending. Review of Systems CONSTITUTIONAL: Positive for weakness. low grade Fever EYES: No complaint. ENT:No complaint. RESPIRATORY: No complaint. CARDIOVASCULAR: No complaint. GENITOURINARY: No complaint. GASTROINTESTINAL: as per history of present illness MUSCULOSKELETAL: No complaint. INTEGUMENTARY: No complaint. PSYCHOLOGICAL: No complaint. ENDOCRINE: No complaint. NEUROLOGIC: No complaint. 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 Bladder surgery Last Myocardial Infarction Date:: 2010 History of Any Multi-Drug Resistant Organisms: None Reported Past Surgical History: Appendectomy, Bowel Resection, Cholecystectomy, Heart Catheterization With Stent Additional Past Surgical History / Comment(s): Colon Resection Feb 2017 Past Anesthesia/Blood Transfusion Reactions: No Reported Reaction, Motion Sickness Date of Last Stent Placement:: 2010 Past Psychological History: Anxiety Additional Psychological History / Comment(s): . Smoking Status: Never smoker Past Alcohol Use History: None Reported Past Drug Use History: None Reported - Past Family History Father Family Medical History: Blood Disorder Mother Family Medical History: Cancer Additional Family Medical History / Comment(s): Melanoma Medications and Allergies Home Medications Medication Instructions Recorded Confirmed Type Allopurinol [Zyloprim] 100 mg PO BID 09/25/16 12/28/18 History Aspirin [Adult Low Dose Aspirin EC] 162 mg PO DAILY 09/25/16 12/28/18 History Carvedilol [Coreg] 25 mg PO BID 09/25/16 12/28/18 History DULoxetine HCL [Cymbalta] 60 mg PO DAILY 09/25/16 12/28/18 History Ergocalciferol [Vitamin D2 50,000 unit PO Q14D 09/25/16 12/28/18 History (DRISDOL)] Furosemide [Lasix] 20 mg PO SUTUWETHSA 09/25/16 12/28/18 History LORazepam [Ativan] 1 mg PO TID PRN 09/25/16 12/28/18 History Liraglutide [Victoza 2-Seferino] 0.6 mg SQ DAILY 09/25/16 12/28/18 History Lisinopril [Zestril] 40 mg PO DAILY 09/25/16 12/28/18 History Multivitamins, Thera [Multivitamin 1 tab PO DAILY 09/25/16 12/28/18 History (formulary)] Nitroglycerin Sl Tabs [Nitrostat] 0.4 mg SUBLINGUAL Q5M PRN 09/25/16 12/28/18 History Nortriptyline HCl [Pamelor] 50 mg PO HS 09/25/16 12/28/18 History Mentcle-3/Dha/Epa/Fish Oil [Fish Oil 1 cap PO DAILY 09/25/16 12/28/18 History 1,360 mg Softgel] Rosuvastatin [Crestor] 10 mg PO HS 09/25/16 12/28/18 History Ubidecarenone [Co Q-10] 100 mg PO DAILY 09/25/16 12/28/18 History Furosemide [Lasix] 40 mg PO MOFR 11/11/16 12/28/18 History traMADol HCl [Ultram] 50 mg PO BID PRN 02/02/17 12/28/18 History Terazosin HCl 2 mg PO HS 11/07/18 12/28/18 History Allergies Allergy/AdvReac Type Severity Reaction Status Date / Time adhesive tape Allergy Rash/Hives Verified 12/28/18 17:54 Penicillins Allergy Itching Verified 12/28/18 17:54 NSAIDS (Non-Steroidal AdvReac Unknown UNABLE TO Verified 12/28/18 17:54 Anti-Inflamma TAKE DUE TO KIDNEY DISEASE. prednisone AdvReac DEPRESSION Verified 12/28/18 17:54 WITH LARGE DOSES Physical Exam Vitals: Vital Signs Temp Pulse Pulse Resp BP BP Pulse Ox 12/29/18 12:29 98.8 F 102 H 20 146/69 97 12/29/18 04:00 98.4 F 72 18 129/72 94 L 12/29/18 02:10 115/58 12/29/18 01:25 99.4 F 12/28/18 21:58 100.1 F H 122 H 22 133/68 95 12/28/18 21:32 100.8 F H 12/28/18 20:55 114 H 19 105/51 12/28/18 20:30 100.2 F H 117 H 18 99/49 98 12/28/18 17:38 98.8 F 115 H 18 131/78 98 Intake and Output 12/28/18 12/29/18 12/29/18 22:59 06:59 14:59 Other: Voiding Method Toilet # Voids 1 2 Weight 83.915 kg GENERAL DESCRIPTIONelderly male lying in bed, no distress. No tachypnea or accessory muscle of respiration use. HEENT: Shows Pallor , no scleral icterus. Oral mucous membrane is dry. No pharyngeal erythema or thrush NECK: Trachea central, no thyromegaly. LUNGS: Unlabored breathing. Clear to auscultation anteriorly. No wheeze or crackle. HEART: S1, S2, regular rate and rhythm. No loud murmur ABDOMEN: Soft, mild epigastric tenderness , no guarding or rigidity, no organomegaly EXTREMITIES: No edema of feet. SKIN: No rash, no masses palpable. NEUROLOGICAL: The patient is awake, alert, oriented x3, mood and affect normal. Results CBC & Chem 7: 12/30/18 13:00 12/30/18 13:00 Labs: Abnormal Lab Results - Last 24 Hours (Table) 12/28/18 12/28/18 12/28/18 Range/Units 18:51 18:51 18:51 Plt Count 130 L (150-450) k/uL Lymphocytes # (Manual) 0.87 L (1.0-4.8) k/uL BUN 34 H (9-20) mg/dL Creatinine 1.94 H (0.66-1.25) mg/dL Glucose 162 H (74-99) mg/dL POC Glucose (mg/dL) (75-99) mg/dL Phosphorus 2.4 L (2.5-4.5) mg/dL Urine Protein 3+ H (Negative) Urine Ketones Trace H (Negative) Hyaline Casts 18 H (0-2) /lpf Urine Mucus Rare H (None) /hpf 12/29/18 12/29/18 Range/Units 07:04 11:25 Plt Count (150-450) k/uL Lymphocytes # (Manual) (1.0-4.8) k/uL BUN (9-20) mg/dL Creatinine (0.66-1.25) mg/dL Glucose (74-99) mg/dL POC Glucose (mg/dL) 105 H 125 H (75-99) mg/dL Phosphorus (2.5-4.5) mg/dL Urine Protein (Negative) Urine Ketones (Negative) Hyaline Casts (0-2) /lpf Urine Mucus (None) /hpf Assessment and Plan Assessment: 1 patient presented to hospital with sepsis in this patient who did have a fever tachycardia with the predominantly abdominal symptoms of pain nausea vomiting with evidence of any significant gastritis concerning likely for infectious lisa ology and likely secondary to enteric gram-negative pathogen 2-penicillin allergy but will need a number of antibiotic safe to use (1) Emphysematous gastritis Current Visit: Yes Status: Acute Code(s): K29.60 - OTHER GASTRITIS WITHOUT BLEEDING SNOMED Code(s): 4726105 (2) Sepsis Current Visit: No Status: Acute Code(s): A41.9 - SEPSIS, UNSPECIFIED ORGANISM SNOMED Code(s): 61573621 Plan: 1-discontinue the Levaquin 2-start the patient with cefepime 2 g every 12 and continue with the Flagyl 3-add Diflucan 200 mg daily 4-IV fluid Time with Patient: Greater than 30
[2018-12-31] MEDS: LACTATED RINGERS 1,000 ML IV SCH ×4 (05:25→20:37)
[2018-12-31] MEDS: LORazepam 2 MG/ML INJ IV PRN ×3 (06:58→22:14)
--- NOTE | 2018-12-31 07:22 | PN ---
PROGRESS NOTE DATE OF SERVICE: 12/30/2018 REASON FOR FOLLOWUP: Emphysematous gastritis, likely infectious. INTERVAL HISTORY: The patient is currently afebrile. The patient's nausea and vomiting have improved. Did not have any episodes of vomiting today. Epigastric discomfort has decreased in intensity. No chest pain, shortness of breath or cough and diarrhea has slowed down. PHYSICAL EXAMINATION: Blood pressure is 151/77 with a pulse of 79, temperature 98.3, he is 98% on room air. General description is an elderly male, lying in bed in no distress. RESPIRATORY SYSTEM: Unlabored breathing, clear to auscultation anteriorly. HEART: S1, S2. Regular rate and rhythm. ABDOMEN: Soft, no tenderness. Extremities: No edema of the feet. LABS: Hemoglobin is 13.4, white count of 6.6, BUN of 13, creatinine 1.30. Stool for C diff is negative. Stool cultures are currently pending. DIAGNOSTIC IMPRESSION AND PLAN: Patient admitted to hospital with intractable nausea, vomiting, abdominal pain. The patient did have evidence of emphysematous gastritis and some air in the portal system. The patient clinically responding cefepime, Flagyl and Diflucan to continue. Waiting the stool culture to finalize, possible endoscopy pneumonia. Questions were answered. MMODL / IJN: [id number] /
[2018-12-31 07:41] LABS: Glucose,Whole Blood 110 mg/dL (75-99)
[2018-12-31] MEDS: metroNIDAZOLE-NS PMX 500 MG in SALINE 1 100ML.BAG IVPB SCH ×3 (08:18→23:56)
[2018-12-31] MEDS ORDERED: traMADol 50 MG TAB PO PRN (08:25)
[2018-12-31] MEDS ORDERED: LORazepam 1 MG TAB PO PRN (08:25)
[2018-12-31] MEDS ORDERED: NITROGLYCERIN SL TABS 0.4 MG TAB SUBLINGUAL PRN (08:25)
[2018-12-31] MEDS ORDERED: NON FORMULARY DRUG (Liraglutide [Victoza 2-Pak] 0.6 MG) SQ SCH (09:00)
[2018-12-31] MEDS ORDERED: FUROSEMIDE 40 MG TAB PO SCH (09:00)
[2018-12-31] MEDS: ASPIRIN 81 MG PO SCH (09:12)
[2018-12-31] MEDS: ALLOPURINOL 100 MG TAB PO SCH ×2 (09:12→20:36)
[2018-12-31] MEDS: CARVEDILOL 12.5 MG TAB PO SCH ×2 (09:18→18:01)
[2018-12-31] MEDS: CEFEPIME 2 GM in SODIUM CHLORIDE 0.9% 100 ML IVPB SCH ×2 (09:18→20:35)
[2018-12-31] MEDS: LISINOPRIL 20 MG TAB PO SCH (09:18)
[2018-12-31] MEDS: FLUCONAZOLE IN NACL,ISO-OSM 200 MG in SALINE 1 100ML.BAG IVPB SCH (10:20)
[2018-12-31] MEDS ORDERED: IV FLUID CONTINUATION 1,000 ML IV ONE (11:40)
[2018-12-31] MEDS ORDERED: PROPOFOL 10 MG/ML 20 ML VIAL IV ONE (11:41)
[2018-12-31] MEDS ORDERED: LIDOCAINE 1% INJ 10MG/ML (20 ML MDV) ONE (11:41)
--- NOTE | 2018-12-31 11:57 | P.OP ---
Date of Procedure: 12/31/18 Preoperative Diagnosis: Gastritis Postoperative Diagnosis: Gastritis on posterior Oestreich wall extending from esophagus to antrum Procedure(s) Performed: EGD Anesthesia: MAC Surgeon: Rusty Anaya Pathology: other (Antrum,) Condition: stable Description of Procedure: The patient's placed on the endoscopy table in the lateral position. He received IV sedation. The gastroscope placed oropharynx and passed in the esophagus. The scope was then placed and stomach. The posterior gastric wall appeared inflamed. There was evidence of erythema extending from the esophagus into the antrum on the posterior gastric wall. And the antrum several biopsies of the gastritis was performed. The scope was withdrawn. There is known evidence of ulceration bleeding stomach. Scope was withdrawn for patient. Esophagus appeared normal. There is no significant hiatal hernia. Scope was withdrawn for patient.
[2018-12-31 12:17] LABS: Glucose,Whole Blood 146 mg/dL (75-99)
[2018-12-31] MEDS: MULTIVITAMINS, THERA 1 EACH TAB PO SCH (15:15)
[2018-12-31] MEDS: PANTOPRAZOLE 40 MG/10 ML VIAL IVP SCH (15:15)
[2018-12-31] MEDS: DULoxetine HCL 60 MG CAPSULE.DR PO SCH (15:15)
[2018-12-31 17:47] LABS: Glucose,Whole Blood 162 mg/dL (75-99)
--- NOTE | 2018-12-31 17:51 | PN ---
PROGRESS NOTE DATE OF DICTATION: 12/31/2018 The patient is a 73-year-old pleasant white male admitted to the hospital with acute onset of nausea, vomiting, diarrhea for the last [address] scan showed air in the gastric wall as well as portal venous air. The patient was started on empiric antibiotics and overall he is gradually improving. He had an upper endoscopy done by Dr. Anaya today that showed severe gastritis extending from the esophagus to the antrum along the greater curvature of the stomach. Biopsies are still pending. In the meantime, patient is feeling better. No further episodes of nausea, vomiting. He has had 2 soft bowel movements today. Diarrhea is almost resolving. So far stool studies have been negative. Cultures are still pending. PHYSICAL EXAMINATION: He appears comfortable. No apparent distress. VITAL SIGNS: Stable. Blood pressure is 162/82, pulse rate 69, temperature 98.2. HEENT examination unremarkable. Conjunctivae pink. Sclerae anicteric. Oral cavity no lesions. NECK: No JVD or lymph node enlargement. CHEST: Clear to auscultation. HEART: Regular rate and rhythm. ABDOMEN: Soft. It was non-tender, non-distended. Bowel sounds are positive. No organomegaly. EXTREMITIES: No pedal edema. SKIN: No rashes. NEUROLOGIC: Alert and oriented x3. No focal deficits. LABS: No labs are available from today. Stool for C difficile toxin negative. Cultures preliminary all negative. IMPRESSION: 1. Acute onset of nausea, vomiting, diarrhea, possibly infectious in etiology. On empiric antibiotics, gradually improving. 2. Severe emphysematous gastritis, status post esophagogastroduodenoscopy by Dr. Anaya today that showed severe gastritis involving the greater curvature of the stomach extending from esophagus to the antrum, status post biopsies. RECOMMENDATIONS: 1. Continue with current antibiotic regimen. 2. Continue with a clear liquid diet and advance as per surgical recommendations. 3. Continue with IV Protonix. 4. As the diarrhea is gradually improving, we will hold off on endoscopic intervention at the present time and will consider a colonoscopy on an outpatient basis. The plan was discussed with the patient as well as his daughter who was at the bedside. Thank you for this consultation. MMODL / IJN: [id number] /
[2018-12-31] MEDS: ATORVASTATIN 10 MG TAB PO SCH (20:36)
[2018-12-31] MEDS: DOXAZOSIN 2 MG TAB PO SCH ×2 (20:36→20:42)
[2018-12-31] MEDS: NORTRIPTYLINE 25 MG CAP PO SCH (20:36)
[2018-12-31 20:45] LABS: Glucose,Whole Blood 136 mg/dL (75-99)
--- NOTE | 2018-12-31 21:54 | PN ---
PROGRESS NOTE SUBJECTIVE: This is a 73-year-old white male with acute gastroenteritis, pneumobilia, acute abdominal pain, gastroenteritis, is going to have an EGD today. He is having no chest pain, shortness of breath. Remains on broad-spectrum antibiotics x3 for gastroenteritis and pneumobilia and acute abdominal pain. The patient will have an EGD. Continue on broad-spectrum antibiotics. GI sounds are improved today with less rumbling, less diarrhea, as clinically he is improving. Continue current treatment. MMODL / IJN: [id number] /
--- NOTE | 2018-12-31 22:49 | PN ---
PROGRESS NOTE DATE OF SERVICE: 12/31/2018 REASON FOR FOLLOWUP: Emphysematous gastritis. INTERVAL HISTORY: The patient is currently afebrile. The patient is status post EGD this morning with evidence of extensive gastritis from esophagus to the antrum. Biopsy has been obtained. The patient tolerated the procedure. Currently denies having any further nausea. No vomiting or diarrhea. PHYSICAL EXAMINATION: Blood pressure is 160/82 with a pulse of 69, temperature 98.2. He is 97% on room air. General description is an elderly male lying in bed in no distress. RESPIRATORY SYSTEM: Unlabored breathing. Clear to auscultation anteriorly. HEART: S1, S2. Regular rate and rhythm. ABDOMEN: Soft. No tenderness. EXTREMITIES: No edema of the feet. LABS: No new labs have been obtained today. Blood culture has been negative. Stool cultures are currently pending. DIAGNOSTIC IMPRESSION AND PLAN: Patient with emphysematous gastritis. The patient is status post biopsy, EGD with the culture report per Pathology currently pending. The patient clinically responded to the cefepime, Flagyl and Diflucan; to continue while waiting for the condition to stabilize and biopsy to be finalized. Monitor his clinical course closely. MMODL / IJN: [id number] /
[2019-01-01] MEDS: LACTATED RINGERS 1,000 ML IV SCH ×4 (06:02→23:21)
[2019-01-01 07:07] LABS: Glucose,Whole Blood 102 mg/dL (75-99)
[2019-01-01] MEDS: ASPIRIN 81 MG PO SCH (10:02)
[2019-01-01] MEDS: ALLOPURINOL 100 MG TAB PO SCH (10:02)
[2019-01-01] MEDS: PANTOPRAZOLE 40 MG/10 ML VIAL IVP SCH (10:03)
[2019-01-01] MEDS: DULoxetine HCL 60 MG CAPSULE.DR PO SCH (10:03)
[2019-01-01] MEDS: CARVEDILOL 12.5 MG TAB PO SCH ×2 (10:05→19:01)
[2019-01-01] MEDS: FUROSEMIDE 20 MG TAB PO SCH (10:05)
[2019-01-01] MEDS: metroNIDAZOLE-NS PMX 500 MG in SALINE 1 100ML.BAG IVPB SCH ×3 (10:06→23:20)
[2019-01-01] MEDS: MULTIVITAMINS, THERA 1 EACH TAB PO SCH (10:09)
[2019-01-01] MEDS: LISINOPRIL 20 MG TAB PO SCH (10:10)
[2019-01-01] MEDS: CEFEPIME 2 GM in SODIUM CHLORIDE 0.9% 100 ML IVPB SCH ×2 (11:58→20:49)
[2019-01-01 12:18] LABS: Glucose,Whole Blood 154 mg/dL (75-99)
[2019-01-01] MEDS: FLUCONAZOLE IN NACL,ISO-OSM 200 MG in SALINE 1 100ML.BAG IVPB SCH (13:05)
--- NOTE | 2019-01-01 13:31 | P.PN ---
Subjective Progress Note Date: 01/01/19 CHIEF COMPLAINT: nausea vomiting HISTORY OF PRESENT ILLNESS: Patient is status post EGD revealing gastritis. Biopsies are currently pending. Patient examined with Dr. Anaya. He denies abdominal pain. Denies nausea or vomiting. Tolerating clear liquid diet. PHYSICAL EXAM: VITAL SIGNS: Reviewed. GENERAL: Well-developed in no acute distress. HEENT: No sclera icterus. Extraocular movements grossly intact. Moist buccal mucosa. Head is atraumatic, normocephalic. ABDOMEN: Soft. Nondistended. Nontender. NEUROLOGIC: Alert and oriented. Cranial nerves II through XII grossly intact. ASSESSMENT: 1. Abdominal pain, nausea, vomiting, s/p EGD revealing gastritis 2. Pneumobilia PLAN: Continue clear liquid diet Await biopsy results Nurse practitioner note has been reviewed by physician. Signing provider agrees with the documented findings, assessment, and plan of care. Objective - Vital Signs Vital signs: Vital Signs Temp 98.3 F 01/01/19 12:23 Pulse 67 01/01/19 12:23 Resp 18 01/01/19 12:23 BP 174/97 01/01/19 12:23 Pulse Ox 96 01/01/19 12:23 Intake & Output 12/31/18 01/01/19 01/01/19 18:59 06:59 18:59 Intake Total 1275 1880 Balance 1275 1880 Intake: Intake, IV Titration 1250 1400 Amount Cefepime 2 gm In Sodium 100 100 Chloride 0.9% 100 ml @ 200 mls/hr IVPB Q12HR [facility] Rx#:[id number] Fluconazole in NaCl,Iso- 100 Osm 200 mg In Saline 1 100ml.bag @ 100 mls/hr IVPB DAILY [facility] Rx#: [id number] Lactated Ringers 1,000 ml 950 1200 @ 150 mls/hr IV .[id number] [facility] Rx#:[id number] metroNIDAZOLE-NS PMX 500 100 100 mg In Saline 1 100ml.bag @ 100 mls/hr IVPB Q8HR [facility] Rx#:[id number] Oral 25 480 Other: Voiding Method Toilet Toilet Toilet # Voids 3 1 - Labs CBC & Chem 7: 12/30/18 13:00 12/30/18 13:00 Labs: Abnormal Lab Results - Last 24 Hours (Table) 12/31/18 12/31/18 01/01/19 Range/Units 17:46 20:44 07:05 POC Glucose (mg/dL) 162 H 136 H 102 H (75-99) mg/dL 01/01/19 Range/Units 11:56 POC Glucose (mg/dL) 154 H (75-99) mg/dL Microbiology - Last 24 Hours (Table) 12/29/18 10:58 Blood Culture - Preliminary Blood No Growth after 72 hours 12/29/18 11:30 Stool Culture - Preliminary Stool
[2019-01-01 13:55] VITALS: BMI 28.1
--- NOTE | 2019-01-01 16:28 | PN ---
PROGRESS NOTE DATE OF DICTATION: 01/01/2019 Patient is a 73-year-old pleasant white male admitted to the hospital with acute onset of nausea, vomiting, diarrhea of 2 days' duration. He was admitted to the hospital. CT scan showed air in the fundus of the stomach as well as portal venous air. He was started on empiric antibiotics for possible infectious etiology. He had an upper endoscopy done by Dr. Anaya yesterday that showed severe gastritis extending all the way from the esophagus to the antrum along the greater curvature of the stomach, biopsies of which are still pending at the time of this dictation. He is feeling much better. No further episodes of nausea, vomiting or diarrhea. Remains on a clear liquid diet. PHYSICAL EXAMINATION: He appears comfortable. No apparent distress. VITAL SIGNS: Stable. Blood pressure is 174/97, pulse rate 67, temperature 98.3. HEENT examination unremarkable. Conjunctivae pink. Sclerae anicteric. Oral cavity no lesions. NECK: No JVD or lymph node enlargement. CHEST: Clear to auscultation. HEART: Regular rate and rhythm. ABDOMEN: Soft. Bowel sounds are positive. No organomegaly. EXTREMITIES: No pedal edema. SKIN: No rashes. NEUROLOGIC: Alert and oriented x3. No focal deficits. LABS: No labs available today. IMPRESSION: Acute onset of nausea, vomiting, diarrhea of [address] of the abdomen showing emphysematous gastritis as well as portal venous air. Patient at present is on broad-spectrum antibiotics and doing extremely well. Remains on a clear liquid diet. He is status post EGD by Dr. Anaya yesterday that showed severe intense gastritis, biopsies of which are still pending at the time of this dictation. RECOMMENDATIONS: 1. Continue with antibiotics. 2. Await biopsy results. 3. Continue with a clear liquid diet. 4. We will follow with him closely during his hospital stay. MMODL / IJN: [id number] /
[2019-01-01 17:21] LABS: Glucose,Whole Blood 127 mg/dL (75-99)
[2019-01-01 20:22] LABS: Glucose,Whole Blood 197 mg/dL (75-99)
[2019-01-01] MEDS: ATORVASTATIN 10 MG TAB PO SCH (20:48)
[2019-01-01] MEDS: DOXAZOSIN 2 MG TAB PO SCH (20:48)
[2019-01-01] MEDS: NORTRIPTYLINE 25 MG CAP PO SCH (20:49)
--- NOTE | 2019-01-01 22:02 | PN ---
PROGRESS NOTE Edison Andrews with severe gastroenteritis, severe ischemic gastritis with broad- spectrum severe erosions of the stomach on EGD extending into his esophagus near perforation of his gastric area at which time we were waiting for biopsies per Infectious Disease prior to any discharge. He is not ready for discharge. Remains on broad-spectrum antibiotics and antacid medications. Abdomen soft, increased bowel sounds. Cardiovascular S1, S2. Lungs clear. ASSESSMENT: 1. Ischemic gastritis. 2. Acute gastroenteritis. 3. Pneumobilia. 4. Acute abdominal pain. 5. Severe erosive gastritis. 6. Esophagitis. Await for biopsies prior to discharge per Infectious Disease. PROGNOSIS: Extremely guarded. MMODL / IJN: [id number] /
[2019-01-01] MEDS: LORazepam 2 MG/ML INJ IV PRN (22:29)
--- NOTE | 2019-01-01 23:24 | PN ---
PROGRESS NOTE DATE OF SERVICE: 01/01/2019. REASON FOR FOLLOW UP: Emphysematous with question of possible ischemic versus infectious. INTERVAL HISTORY: The patient is currently afebrile. Patient has been breathing comfortably. The patient denies any epigastric abdominal pain. No further nausea or vomiting or any diarrhea. PHYSICAL EXAMINATION: Blood pressure 142/60 with a pulse of 78, temperature 98.7. He is 97% on room air. General description is an elderly male lying in bed in no distress. Respiratory system: Unlabored breathing. Clear to auscultation anteriorly. Heart S1, S2. Regular rate and rhythm. ABDOMEN: Soft. No tenderness. Extremities: No edema of the feet. LABS: No new labs have been obtained today. Culture so far negative. Stool culture negative. DIAGNOSTIC IMPRESSION AND PLAN: Patient admitted to the hospital with acute nausea, vomiting, diarrhea and abdominal pain. This patient did have evidence of emphysematous gastritis with some air in the portal system with concern for possible ischemic, doubt any infectious etiology less likely but not entirely excluded. The patient is status post EGD and biopsy with culture report currently pending. Continue at this point. We will monitor clinical course closely. Continue supportive care. MMODL / IJN: [id number] /
[2019-01-02 07:16] LABS: Glucose,Whole Blood 111 mg/dL (75-99)
[2019-01-02 07:28] LABS: Basophils % (A) 0 %; Eosinophils # (A) 0.2 k/uL (0-0.7); Eosinophils % (A) 4 %; HCT 37.7 % (39.0-53.0); HGB 12.8 gm/dL (13.0-17.5); Lymphocytes # (A) 1.5 k/uL (1.0-4.8); Lymphocytes % (A) 27 %; MCH 30.9 pg (25.0-35.0); MCV 90.8 fL (80.0-100.0); Monocytes # (A) 0.5 k/uL (0-1.0); Monocytes % (A) 9 %; Neutrophils # (A) 3.1 k/uL (1.3-7.7); Neutrophils % (A) 56 %; Platelet Count 153 k/uL (150-450); RBC 4.15 m/uL (4.30-5.90); RDW 14.1 % (11.5-15.5); WBC 5.5 k/uL (3.8-10.6)
[2019-01-02 07:35] LABS: Albumin 3.1 g/dL (3.5-5.0); Calcium 8.6 mg/dL (8.4-10.2); Potassium 3.1 mmol/L (3.5-5.1); Total Bilirubin 0.6 mg/dL (0.2-1.3); Total Protein 5.8 g/dL (6.3-8.2)
[2019-01-02] MEDS: ASPIRIN 81 MG PO SCH (08:52)
[2019-01-02] MEDS: MULTIVITAMINS, THERA 1 EACH TAB PO SCH (08:52)
[2019-01-02] MEDS: LISINOPRIL 20 MG TAB PO SCH (08:52)
[2019-01-02] MEDS: CEFEPIME 2 GM in SODIUM CHLORIDE 0.9% 100 ML IVPB SCH ×2 (08:52→21:42)
[2019-01-02] MEDS: DULoxetine HCL 60 MG CAPSULE.DR PO SCH (08:53)
[2019-01-02] MEDS: CARVEDILOL 12.5 MG TAB PO SCH ×2 (08:53→18:43)
[2019-01-02] MEDS: PANTOPRAZOLE 40 MG/10 ML VIAL IVP SCH (08:53)
[2019-01-02] MEDS: FUROSEMIDE 20 MG TAB PO SCH (09:05)
[2019-01-02] MEDS: metroNIDAZOLE-NS PMX 500 MG in SALINE 1 100ML.BAG IVPB SCH ×3 (10:25→23:54)
[2019-01-02 11:48] LABS: Glucose,Whole Blood 211 mg/dL (75-99)
[2019-01-02] MEDS: FLUCONAZOLE IN NACL,ISO-OSM 200 MG in SALINE 1 100ML.BAG IVPB SCH (12:16)
[2019-01-02] MEDS: LORazepam 2 MG/ML INJ IV PRN ×2 (15:16→21:42)
[2019-01-02] MEDS: LACTATED RINGERS 1,000 ML IV SCH ×3 (15:23→20:56)
[2019-01-02 17:07] LABS: Glucose,Whole Blood 206 mg/dL (75-99)
--- NOTE | 2019-01-02 18:25 | P.PN ---
Progress Note - Text Progress Note Date: 01/02/19 The patient is resting comfortably in his bed. He has no complaints of pain. He is hungry and requesting more food. On exam his vital signs are stable. His abdomen soft. His pathology was reviewed. His recent EGD shows evidence of chronic gastritis. The pathology was discussed the patient and his . I we'll advance his diet to regular diet. He'll be discharged home in the a.m.
[2019-01-02 20:07] LABS: Glucose,Whole Blood 131 mg/dL (75-99)
--- NOTE | 2019-01-02 21:00 | PN ---
PROGRESS NOTE DATE OF DICTATION: 01/02/2019 Patient is a 73-year-old pleasant white male admitted to the hospital with acute onset of nausea, vomiting, diarrhea. He had a CT scan that showed emphysematous gastritis. He underwent upper endoscopy by Dr. Anaya 2 days ago that showed severe active gastritis, biopsies of which showed chronic active gastritis. In the meantime, the patient has been on broad-spectrum antibiotics for possible infectious etiology and he is doing well. He reports no abdominal pain. No nausea, no vomiting. On physical examination, he appears comfortable. No apparent distress. VITAL SIGNS: Stable. Blood pressure is 132/86, pulse rate 80 per minute, temperature 98. HEENT examination unremarkable. Conjunctivae pink. Sclerae anicteric. Oral cavity no lesions. NECK: No JVD or lymph node enlargement. CHEST: Clear to auscultation. HEART: Regular rate and rhythm. ABDOMEN: Soft. Bowel sounds are positive. No organomegaly. EXTREMITIES: No pedal edema. SKIN: No rashes. NEUROLOGIC: Alert and oriented x3. No focal deficits. LABS: WBC 5.5, hemoglobin 12.8. Platelets are normal. Basic metabolic panel is within normal limits. ALT, AST, T-bilirubin and alkaline phosphatase are within normal limits. IMPRESSION: Acute onset of nausea, vomiting, diarrhea with fever, most likely infectious in etiology. CT scan did show evidence of emphysematous gastritis. The patient was started on broad-spectrum antibiotics at the time of admission to the hospital and he is clinically doing extremely well. He is status post EGD two days ago that showed severe gastritis. Biopsies showed chronic active gastritis. RECOMMENDATIONS: 1. Discussed the plan with Dr. Terrazas. 2. Continue with broad-spectrum antibiotics. 3. Advance diet as tolerated. 4. He can be discharged home with outpatient followup in 2-3 weeks. Thank you for this consultation. MMODL / IJN: [id number] /
[2019-01-02] MEDS: NORTRIPTYLINE 25 MG CAP PO SCH (21:43)
[2019-01-02] MEDS: DOXAZOSIN 2 MG TAB PO SCH (21:43)
[2019-01-02] MEDS: ATORVASTATIN 10 MG TAB PO SCH (21:44)
--- NOTE | 2019-01-02 22:30 | PN ---
PROGRESS NOTE DATE OF SERVICE: 01/02/2019. REASON FOR FOLLOWUP: Emphysematous gastritis. INTERVAL HISTORY: The patient is currently afebrile. He has been breathing comfortably. The patient denies having any chest pain or shortness of breath or cough. No further nausea, vomiting. No abdominal pain. No diarrhea. PHYSICAL EXAMINATION: Blood pressure 180/87 with pulse of 73, temperature 97.6. He is 97% on room air. General description is an elderly male lying in bed in no distress. Respiratory system: Unlabored breathing. Clear to auscultation anteriorly. Heart S1, S2. Regular rate and rhythm. ABDOMEN: Soft, no tenderness. EXTREMITIES: No edema of the feet. LABS: Cultures so far negative. Biopsy was pending at the time of evaluation this morning. DIAGNOSTIC IMPRESSION AND PLAN: Patient with emphysematous gastritis. The patient is status post EGD and biopsy. So far infectious workup is negative. Patient to continue with current possible antibiotic with Cipro and Flagyl and Diflucan while waiting for the biopsy to finalize. Continue supportive care. Plan of care discussed with the GI on the case. Presumed to be less likely an ischemic. Continue supportive care. MMODL / IJN: [id number] /
--- NOTE | 2019-01-02 22:44 | PN ---
PROGRESS NOTE This is a 73-year-old white male with severe gastritis, esophagitis. Awaiting biopsy reports. Continue broad-spectrum antibiotics and IV Protonix. CARDIOVASCULAR: S1, S2. LUNGS: Clear. GI: Increased sounds. Increased bowel sounds x4. Diffuse tenderness. ASSESSMENT: 1. Ischemic gastritis. 2. Gastroenteritis. 3. Pneumobilia. 4. Gastric emphysema. PLAN: Continue current treatment. Broad-spectrum antibiotics. Antacids. Await biopsies and surgery and GI clearance. MMODL / IJN: [id number] /
[2019-01-03] MEDS: LACTATED RINGERS 1,000 ML IV SCH (03:23)
[2019-01-03 06:38] LABS: Glucose,Whole Blood 107 mg/dL (75-99)
[2019-01-03] MEDS: MULTIVITAMINS, THERA 1 EACH TAB PO SCH (08:19)
[2019-01-03] MEDS: ASPIRIN 81 MG PO SCH (08:19)
[2019-01-03] MEDS: CARVEDILOL 12.5 MG TAB PO SCH ×2 (08:19→16:43)
[2019-01-03] MEDS: DULoxetine HCL 60 MG CAPSULE.DR PO SCH (08:19)
[2019-01-03] MEDS: metroNIDAZOLE-NS PMX 500 MG in SALINE 1 100ML.BAG IVPB SCH (08:19)
[2019-01-03] MEDS: LISINOPRIL 20 MG TAB PO SCH (08:20)
[2019-01-03] MEDS: PANTOPRAZOLE 40 MG/10 ML VIAL IVP SCH (08:20)
[2019-01-03] MEDS: FUROSEMIDE 20 MG TAB PO SCH (08:22)
[2019-01-03] MEDS: CEFEPIME 2 GM in SODIUM CHLORIDE 0.9% 100 ML IVPB SCH (09:36)
[2019-01-03 10:47] LABS: Glucose,Whole Blood 154 mg/dL (75-99)
[2019-01-03 11:36] VITALS: BP 152/79; PULSE 75; RESP 17; TEMP 98
[2019-01-03] MEDS: FLUCONAZOLE IN NACL,ISO-OSM 200 MG in SALINE 1 100ML.BAG IVPB SCH (11:39)
[2019-01-03] MEDS: LORazepam 2 MG/ML INJ IV PRN (12:00)
--- NOTE | 2019-01-03 12:36 | P.PN ---
Progress Note - Text Progress Note Date: 01/03/19 The patient is doing well. He is tolerating regular diet. He's had no further abdominal pain. On exam his vital signs are stable. His abdomen soft. The patient discharged home. He'll follow myself in 1 week.
[2019-01-03] MEDS ORDERED: metroNIDAZOLE 500 MG TAB PO SCH (16:00)
--- NOTE | 2019-01-03 16:02 | PN ---
PROGRESS NOTE DATE OF SERVICE: 01/03/2019 REASON FOR FOLLOWUP: Emphysematous gastritis, unclear etiology. INTERVAL HISTORY: The patient is currently afebrile. The patient has been breathing comfortably. The patient denies any further nausea. No vomiting or abdominal pain or any diarrhea. Overall feeling better. PHYSICAL EXAMINATION: Blood pressure is 152/79 with a pulse of 75, temperature 98. He is 96% on room air. General description is an elderly male lying in bed in no distress. RESPIRATORY SYSTEM: Unlabored breathing. Clear to auscultation anteriorly. HEART: S1, S2. Regular rate and rhythm. ABDOMEN: Soft. No tenderness. EXTREMITIES: No edema of the feet. LABS: No new labs have been obtained today. DIAGNOSTIC IMPRESSION AND PLAN: Patient with emphysematous gastritis of unclear etiology, status post biopsy. The patient has overall improvement on antibiotics; hence will give him a short course of oral Ceftin and Flagyl. The patient wants to follow up with [facility] for further workup and has been encouraged to do so. Advised if any recurrence of his symptoms before he sees his physician at [facility] to let me know right away. Prescription was sent to the pharmacy. MMODL / IJN: [id number] /
[2019-01-03 16:41] LABS: Glucose,Whole Blood 156 mg/dL (75-99)
--- NOTE | 2019-01-03 16:52 | PN ---
PROGRESS NOTE DATE OF SERVICE: January 03, 2019 Patient is a 73-year-old pleasant white male admitted to hospital with acute onset of nausea, vomiting, diarrhea, and CT scan showed emphysematous gastritis and some portal . He has been on broad-spectrum antibiotics since then and doing well. Upper endoscopy by Dr. Anaya showed severe gastritis. Biopsies showed active gastritis. Blood cultures and stool cultures were all negative. In the meantime, his symptoms resolved. He continues to remain on antibiotics. No new complaints. No fever, chills, night sweats. PHYSICAL EXAMINATION: Blood pressure 128/79. Pulse rate 75, temperature 98. HEENT examination unremarkable. Conjunctivae pink. Sclerae anicteric. Oral cavity no lesions. NECK: No JVD or lymph node enlargement. CHEST: Clear to auscultation. HEART: Regular rate and rhythm. ABDOMEN: Soft. Bowel sounds are positive. No organomegaly. EXTREMITIES: No pedal edema. SKIN: No rashes. NEUROLOGICAL: Alert, oriented x3. No focal deficits. LABS: From yesterday, CBC was within normal limits. Hemoglobin 12.8. Basic metabolic panel is within normal limits. CRP was 13.2. IMPRESSION: 1. Acute emphysematous gastritis. Presented with nausea, vomiting, and diarrhea which have resolved, presently on broad-spectrum antibiotics, doing well. 2. Elevated CRP. 3. Severe gastritis on Protonix 40 mg daily. RECOMMENDATIONS: 1. Continue with broad-spectrum antibiotics. 2. Patient wants to be discharged home today, which is agreeable. 3. Follow up in the office as needed if he has any recurrent symptoms. Thank you for this consultation. MMODL / IJN: [id number] /
[2019-01-04] MEDS ORDERED: PANTOPRAZOLE 40 MG TABLET PO SCH (07:30)
[2019-01-04] MEDS ORDERED: FLUCONAZOLE 100 MG TAB PO SCH (09:00)
[2019-01-07] MEDS ORDERED: ERGOCALCIFEROL 50,000 UNIT CAP PO SCH (09:00)
== END 2019-01-03 17:10 | disposition home or self-care (01) | DRG 392 ==
LOC: EC 17:32 → 3NMEDONC 20:12 → OBSVTOIN 12-30 12:30
PROVIDERS: ADMIT Family Medicine; ATTEND Family Medicine
PROC: 0DB78ZX Excision of Stomach, Pylorus, Via Natural or Artificial Opening Endoscopic, Diagnostic (ICD-10-PCS; principal; 2018-12-31 09:15)
DX: K29.60 Other gastritis without bleeding (principal); N04.1 Nephrotic syndrome with focal and segmental glomerular lesions; E11.22 Type 2 diabetes mellitus with diabetic chronic kidney disease; N18.3 Chronic kidney disease, stage 3 (moderate); E86.0 Dehydration; I12.9 Hypertensive chronic kidney disease with stage 1 through stage 4 chronic kidney disease, or unspecified chronic kidney disease; K29.50 Unspecified chronic gastritis without bleeding; K20.9 Esophagitis, unspecified; E78.5 Hyperlipidemia, unspecified; I25.10 Atherosclerotic heart disease of native coronary artery without angina pectoris; F41.9 Anxiety disorder, unspecified; M79.7 Fibromyalgia; I25.2 Old myocardial infarction; M10.9 Gout, unspecified; Z79.82 Long term (current) use of aspirin; Z79.899 Other long term (current) drug therapy; Z95.5 Presence of coronary angioplasty implant and graft; Z90.49 Acquired absence of other specified parts of digestive tract; Z88.6 Allergy status to analgesic agent; Z88.0 Allergy status to penicillin; Z91.048 Other nonmedicinal substance allergy status; Z80.8 Family history of malignant neoplasm of other organs or systems
CPT/HCPCS: 36415; 43239; 74176; 80053; 81001; 82272; 82550; 83605; 83630; 83735; 84100; 84145; 84484; 85025; 85610; 85730; 86140; 87040; 87045; 87046; 87324; 87329; 88305; 88342; 93005; 94760; 96361; 96374; 96375; 99285

== ENCOUNTER 2019-08-16 17:13 | Inpatient (IN) | payer MEDICARE ==
[2019-08-16 18:09] LABS: Albumin 4.6 g/dL (3.5-5.0); Calcium 9.9 mg/dL (8.4-10.2); Potassium 4.9 mmol/L (3.5-5.1); Total Bilirubin 1.3 mg/dL (0.2-1.3); Total Protein 7.9 g/dL (6.3-8.2)
[2019-08-16] MEDS ORDERED: SODIUM CHLORIDE 0.9% 1,000 ML IV STA ×3 (18:09→19:31)
--- NOTE | 2019-08-16 18:13 | ED ---
Nausea/Vomiting/Diarrhea HPI - General Chief complaint: Nausea/Vomiting/Diarrhea Stated complaint: NVD Time Seen by Provider: 08/16/19 17:29 Source: patient, family, RN notes reviewed, old records reviewed Mode of arrival: wheelchair Limitations: no limitations - History of Present Illness Initial comments: This is a 74-year-old male with a history of small bowel obstruction with resection pneumobilia cholecystectomy and renal disease who presents with complaints of the onset of nausea vomiting diarrhea abdominal pain feels very similar to his previous episode 12/28/18 he had a low-grade fever denies any overt fevers or chills at this time other than that. He does have some nondescript abdominal pain. No cough or phlegm production no sore throat no other modifying factors at this time MD complaint: nausea, vomiting, diarrhea, abdominal pain - Related Data Home Medications Medication Instructions Recorded Confirmed Allopurinol [Zyloprim] 100 mg PO BID 09/25/16 08/16/19 Aspirin [Adult Low Dose Aspirin EC] 162 mg PO DAILY 09/25/16 08/16/19 Carvedilol [Coreg] 25 mg PO BID 09/25/16 08/16/19 DULoxetine HCL [Cymbalta] 60 mg PO DAILY 09/25/16 08/16/19 Ergocalciferol [Vitamin D2 50,000 unit PO Q14D 09/25/16 08/16/19 (DRISDOL)] Furosemide [Lasix] 20 mg PO SUTUWETHSA 09/25/16 08/16/19 LORazepam [Ativan] 1 mg PO TID PRN 09/25/16 08/16/19 Liraglutide [Victoza 2-Seferino] 0.6 mg SQ DAILY 09/25/16 08/16/19 Lisinopril [Zestril] 40 mg PO DAILY 09/25/16 08/16/19 Multivitamins, Thera [Multivitamin 1 tab PO DAILY 09/25/16 08/16/19 (formulary)] Nitroglycerin Sl Tabs [Nitrostat] 0.4 mg SUBLINGUAL Q5M PRN 09/25/16 08/16/19 Nortriptyline HCl [Pamelor] 50 mg PO HS 09/25/16 08/16/19 Rosuvastatin [Crestor] 10 mg PO HS 09/25/16 08/16/19 Furosemide [Lasix] 40 mg PO MOFR 11/11/16 08/16/19 traMADol HCl [Ultram] 50 mg PO BID PRN 02/02/17 08/16/19 Omeprazole [PriLOSEC] 40 mg PO Q48H 08/16/19 08/16/19 Terazosin [Hytrin] 1 mg PO QAM PRN 08/16/19 08/16/19 Terazosin [Hytrin] 5 mg PO HS 08/16/19 08/16/19 Allergies Allergy/AdvReac Type Severity Reaction Status Date / Time adhesive tape Allergy Rash/Hives Verified 08/16/19 17:25 Penicillins Allergy Itching Verified 08/16/19 17:25 NSAIDS (Non-Steroidal AdvReac Unknown UNABLE TO Verified 08/16/19 17:25 Anti-Inflamma TAKE DUE TO KIDNEY DISEASE. prednisone AdvReac DEPRESSION Verified 08/16/19 17:25 WITH LARGE DOSES Review of Systems ROS Statement: Those systems with pertinent positive or pertinent negative responses have been documented in the HPI. ROS Other: All systems not noted in ROS Statement are negative. 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 Bladder surgery Last Myocardial Infarction Date:: 2010 History of Any Multi-Drug Resistant Organisms: None Reported Past Surgical History: Appendectomy, Bowel Resection, Cholecystectomy, Heart Catheterization With Stent Additional Past Surgical History / Comment(s): Colon Resection Feb 2017 Past Anesthesia/Blood Transfusion Reactions: No Reported Reaction, Motion Sickness Date of Last Stent Placement:: 2010 Past Psychological History: Anxiety Smoking Status: Never smoker Past Alcohol Use History: None Reported Past Drug Use History: None Reported - Past Family History Father Family Medical History: Blood Disorder Mother Family Medical History: Cancer Additional Family Medical History / Comment(s): Melanoma General Exam - General Exam Comments Initial Comments: This is a well-developed well-nourished awake alert oriented 3 male Limitations: no limitations General appearance: alert, in no apparent distress Head exam: Present: atraumatic, normocephalic, normal inspection Eye exam: Present: normal appearance, PERRL, EOMI. Absent: scleral icterus, conjunctival injection, periorbital swelling ENT exam: Present: mucous membranes dry Neck exam: Present: normal inspection. Absent: tenderness, meningismus, lymphadenopathy Respiratory exam: Present: normal lung sounds bilaterally. Absent: respiratory distress, wheezes, rales, rhonchi, stridor Cardiovascular Exam: Present: normal rhythm, tachycardia, normal heart sounds. Absent: systolic murmur, diastolic murmur, rubs, gallop, clicks GI/Abdominal exam: Present: soft, tenderness (Mild tenderness no guarding rebou nd masses or bruits), normal bowel sounds. Absent: distended, guarding, rebound, rigid Rectal exam: Present: deferred Extremities exam: Present: normal inspection, full ROM, normal capillary refill. Absent: tenderness, pedal edema, joint swelling, calf tenderness Back exam: Present: normal inspection Neurological exam: Present: alert, oriented X3, CN II-XII intact Psychiatric exam: Present: normal affect, normal mood Skin exam: Present: warm, dry, intact, normal color. Absent: rash Course Vital Signs 08/16/19 08/16/19 17:21 19:15 Temperature 98.8 F Pulse Rate 120 H 107 H Respiratory 18 16 Rate Blood Pressure 91/59 83/54 O2 Sat by Pulse 98 97 Oximetry Medical Decision Making - Medical Decision Making Patient was seen in emergency department by Dr. Anaya. Patient will be admitted a CAT scan the abdomen pelvis is pending at this time a 2 hour oral prep with no IV contrast. Patient did receive IV fluids. - Lab Data Result diagrams: 08/16/19 17:50 08/16/19 17:50 Lab Results 08/16/19 08/16/19 08/16/19 Range/Units 17:50 17:50 17:50 WBC 4.3 (3.8-10.6) k/uL RBC 5.51 (4.30-5.90) m/uL Hgb 17.2 (13.0-17.5) gm/dL Hct 50.8 (39.0-53.0) % MCV 92.3 (80.0-100.0) fL MCH 31.2 (25.0-35.0) pg MCHC 33.9 (31.0-37.0) g/dL RDW 14.1 (11.5-15.5) % Plt Count 129 L (150-450) k/uL Neutrophils % (Manual) 76 % Band Neutrophils % 15 % Lymphocytes % (Manual) 5 % Monocytes % (Manual) 4 % Neutrophils # (Manual) 3.90 (1.3-7.7) k/uL Lymphocytes # (Manual) 0.22 L (1.0-4.8) k/uL Monocytes # (Manual) 0.17 (0-1.0) k/uL Nucleated RBCs 0 (0-0) /100 WBC Manual Slide Review Performed RBC Morphology Normal Sodium 138 (137-145) mmol/L Potassium 4.9 (3.5-5.1) mmol/L Chloride 105 (98-107) mmol/L Carbon Dioxide 22 (22-30) mmol/L Anion Gap 11 mmol/L BUN 32 H (9-20) mg/dL Creatinine 2.12 H (0.66-1.25) mg/dL Est GFR (CKD-EPI)AfAm 34 (>60 ml/min/1.73 sqM) Est GFR (CKD-EPI)NonAf 30 (>60 ml/min/1.73 sqM) Glucose 217 H (74-99) mg/dL Plasma Lactic Acid Axel 2.2 H* (0.7-2.0) mmol/L Calcium 9.9 (8.4-10.2) mg/dL Total Bilirubin 1.3 (0.2-1.3) mg/dL AST 36 (17-59) U/L ALT 44 (4-49) U/L Alkaline Phosphatase 90 (38-126) U/L Creatine Kinase 71 (55-170) U/L Troponin I (0.000-0.034) ng/mL Total Protein 7.9 (6.3-8.2) g/dL Albumin 4.6 (3.5-5.0) g/dL Amylase 66 (30-110) U/L Lipase 65 (23-300) U/L Urine Color Urine Appearance (Clear) Urine pH (5.0-8.0) Ur Specific [place] (1.001-1.035) Urine Protein (Negative) Urine Glucose (UA) (Negative) Urine Ketones (Negative) Urine Blood (Negative) Urine Nitrite (Negative) Urine Bilirubin (Negative) Urine Urobilinogen (<2.0) mg/dL Ur Leukocyte Esterase (Negative) Urine RBC (0-5) /hpf Urine WBC (0-5) /hpf Ur Squamous Epith Cells (0-4) /hpf Amorphous Sediment (None) /hpf Urine Bacteria (None) /hpf Hyaline Casts (0-2) /lpf Urine Mucus (None) /hpf 08/16/19 08/16/19 Range/Units 17:50 18:04 WBC (3.8-10.6) k/uL RBC (4.30-5.90) m/uL Hgb (13.0-17.5) gm/dL Hct (39.0-53.0) % MCV (80.0-100.0) fL MCH (25.0-35.0) pg MCHC (31.0-37.0) g/dL RDW (11.5-15.5) % Plt Count (150-450) k/uL Neutrophils % (Manual) % Band Neutrophils % % Lymphocytes % (Manual) % Monocytes % (Manual) % Neutrophils # (Manual) (1.3-7.7) k/uL Lymphocytes # (Manual) (1.0-4.8) k/uL Monocytes # (Manual) (0-1.0) k/uL Nucleated RBCs (0-0) /100 WBC Manual Slide Review RBC Morphology Sodium (137-145) mmol/L Potassium (3.5-5.1) mmol/L Chloride (98-107) mmol/L Carbon Dioxide (22-30) mmol/L Anion Gap mmol/L BUN (9-20) mg/dL Creatinine (0.66-1.25) mg/dL Est GFR (CKD-EPI)AfAm (>60 ml/min/1.73 sqM) Est GFR (CKD-EPI)NonAf (>60 ml/min/1.73 sqM) Glucose (74-99) mg/dL Plasma Lactic Acid Axel (0.7-2.0) mmol/L Calcium (8.4-10.2) mg/dL Total Bilirubin (0.2-1.3) mg/dL AST (17-59) U/L ALT (4-49) U/L Alkaline Phosphatase (38-126) U/L Creatine Kinase (55-170) U/L Troponin I <0.012 (0.000-0.034) ng/mL Total Protein (6.3-8.2) g/dL Albumin (3.5-5.0) g/dL Amylase (30-110) U/L Lipase (23-300) U/L Urine Color Yellow Urine Appearance Cloudy (Clear) Urine pH 5.5 (5.0-8.0) Ur Specific [place] 1.019 (1.001-1.035) Urine Protein 3+ H (Negative) Urine Glucose (UA) Trace H (Negative) Urine Ketones Negative (Negative) Urine Blood Trace H (Negative) Urine Nitrite Negative (Negative) Urine Bilirubin Negative (Negative) Urine Urobilinogen 2.0 (<2.0) mg/dL Ur Leukocyte Esterase Negative (Negative) Urine RBC <1 (0-5) /hpf Urine WBC 2 (0-5) /hpf Ur Squamous Epith Cells <1 (0-4) /hpf Amorphous Sediment Few H (None) /hpf Urine Bacteria Rare H (None) /hpf Hyaline Casts 176 H (0-2) /lpf Urine Mucus Rare H (None) /hpf Disposition Clinical Impression: Abdominal pain, Dehydration, Hypotensive episode, Renal insufficiency Disposition: ADMITTED IP TO THIS HOSP Condition: Fair Referrals: Arnaud Gonsalez MD [Primary Care Provider] - 1-2 days
[2019-08-16 18:14] LABS: HCT 50.8 % (39.0-53.0); HGB 17.2 gm/dL (13.0-17.5); MCH 31.2 pg (25.0-35.0); MCHC 33.9 g/dL (31.0-37.0); MCV 92.3 fL (80.0-100.0); Mean Platelet Volume 9.1; Platelet Count 129 k/uL (150-450); RBC 5.51 m/uL (4.30-5.90); RDW 14.1 % (11.5-15.5); WBC 4.3 k/uL (3.8-10.6)
[2019-08-16 18:18] LABS: Amorphous Sediment,Urine Few /hpf; Appearance,Urine Cloudy (Clear); Bacteria,Urine Rare /hpf; Bilirubin,Urine Negative (Negative); Blood,Urine Trace (Negative); Color,Urine Yellow; Glucose,Urine (UA) Trace (Negative); Hyaline Casts,Urine 176 /lpf (0-2); Ketones,Urine Negative (Negative); Leukocyte Esterase,Urine Negative (Negative); Mucus,Urine Rare /hpf; Nitrite,Urine Negative (Negative); PH, Urine 5.5 (5.0-8.0); Protein,Urine 3+ (Negative); RBC,Urine <1 /hpf (0-5); Specific Gravity,Urine 1.019 (1.001-1.035); Squamous Epithelial Cell,Urine <1 /hpf (0-4); WBC,Urine 2 /hpf (0-5)
[2019-08-16] MEDS ORDERED: ONDANSETRON 4 MG/2 ML VIAL IVP STA (18:24)
[2019-08-16] MEDS ORDERED: LORazepam 2 MG/ML INJ IV STA (18:24)
[2019-08-16] MEDS ORDERED: IOPAMIDOL CONTRAST (ORAL USE) VIAL PO PRN (18:35)
--- NOTE | 2019-08-16 18:39 | P.GSHP ---
History of Present Illness H&P Date: 08/16/19 Chief Complaint: No nausea, vomiting, abdominal pain This a 74-year-old male well-known to myself. Patient's called me this afternoon. The patient Shreyas nausea vomiting abdominal pain. Patient has an extensive history. Previous diverticulitis. He's also had issues with emphysematous gastritis. The patient states he has mainly epigastric pain and nausea. He appears to be comfortable in the emergency room. 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 Bladder surgery Last Myocardial Infarction Date:: 2010 History of Any Multi-Drug Resistant Organisms: None Reported Past Surgical History: Appendectomy, Bowel Resection, Cholecystectomy, Heart Catheterization With Stent Additional Past Surgical History / Comment(s): Colon Resection Feb 2017 Past Anesthesia/Blood Transfusion Reactions: No Reported Reaction, Motion Sickness Date of Last Stent Placement:: 2010 Past Psychological History: Anxiety Smoking Status: Never smoker Past Alcohol Use History: None Reported Past Drug Use History: None Reported - Past Family History Father Family Medical History: Blood Disorder Mother Family Medical History: Cancer Additional Family Medical History / Comment(s): Melanoma Medications and Allergies Home Medications Medication Instructions Recorded Confirmed Type Allopurinol [Zyloprim] 100 mg PO BID 09/25/16 12/28/18 History Aspirin [Adult Low Dose Aspirin EC] 162 mg PO DAILY 09/25/16 12/28/18 History Carvedilol [Coreg] 25 mg PO BID 09/25/16 12/28/18 History DULoxetine HCL [Cymbalta] 60 mg PO DAILY 09/25/16 12/28/18 History Ergocalciferol [Vitamin D2 50,000 unit PO Q14D 09/25/16 12/28/18 History (DRISDOL)] Furosemide [Lasix] 20 mg PO SUTUWETHSA 09/25/16 12/28/18 History LORazepam [Ativan] 1 mg PO TID PRN 09/25/16 12/28/18 History Liraglutide [Victoza 2-Seferino] 0.6 mg SQ DAILY 09/25/16 12/28/18 History Lisinopril [Zestril] 40 mg PO DAILY 09/25/16 12/28/18 History Multivitamins, Thera [Multivitamin 1 tab PO DAILY 09/25/16 12/28/18 History (formulary)] Nitroglycerin Sl Tabs [Nitrostat] 0.4 mg SUBLINGUAL Q5M PRN 09/25/16 12/28/18 History Nortriptyline HCl [Pamelor] 50 mg PO HS 09/25/16 12/28/18 History [place]-3/Dha/Epa/Fish Oil [Fish Oil 1 cap PO DAILY 09/25/16 12/28/18 History 1,360 mg Softgel] Rosuvastatin [Crestor] 10 mg PO HS 09/25/16 12/28/18 History Ubidecarenone [Co Q-10] 100 mg PO DAILY 09/25/16 12/28/18 History Furosemide [Lasix] 40 mg PO MOFR 11/11/16 12/28/18 History traMADol HCl [Ultram] 50 mg PO BID PRN 02/02/17 12/28/18 History Terazosin HCl 2 mg PO HS 11/07/18 12/28/18 History Cefuroxime Axetil [Ceftin] 500 mg PO BID #20 tab 01/03/19 Rx metroNIDAZOLE [Flagyl] 500 mg PO Q8HR #30 tab 01/03/19 Rx Allergies Allergy/AdvReac Type Severity Reaction Status Date / Time adhesive tape Allergy Rash/Hives Verified 08/16/19 17:25 Penicillins Allergy Itching Verified 08/16/19 17:25 NSAIDS (Non-Steroidal AdvReac Unknown UNABLE TO Verified 08/16/19 17:25 Anti-Inflamma TAKE DUE TO KIDNEY DISEASE. prednisone AdvReac DEPRESSION Verified 08/16/19 17:25 WITH LARGE DOSES Surgical - Exam Vital Signs Temp Pulse Resp BP Pulse Ox 98.8 F 120 H 18 91/59 98 08/16/19 17:21 08/16/19 17:21 08/16/19 17:21 08/16/19 17:21 08/16/19 17:21 - General well developed, moderate distress - Eyes PERRL - ENT normal pinna - Neck no masses - Respiratory normal expansion - Cardiovascular Rhythm: regular - Abdomen Mild epigastric tenderness. There is no rebound or guarding Abdomen: soft, non tender Results - Labs 08/16/19 17:50 08/16/19 17:50 Abnormal Lab Results - Last 24 Hours (Table) 08/16/19 08/16/19 08/16/19 Range/Units 17:50 17:50 17:50 Plt Count 129 L (150-450) k/uL BUN 32 H (9-20) mg/dL Creatinine 2.12 H (0.66-1.25) mg/dL Glucose 217 H (74-99) mg/dL Plasma Lactic Acid Axel 2.2 H* (0.7-2.0) mmol/L Urine Protein (Negative) Urine Glucose (UA) (Negative) Urine Blood (Negative) Amorphous Sediment (None) /hpf Urine Bacteria (None) /hpf Hyaline Casts (0-2) /lpf Urine Mucus (None) /hpf 08/16/19 Range/Units 18:04 Plt Count (150-450) k/uL BUN (9-20) mg/dL Creatinine (0.66-1.25) mg/dL Glucose (74-99) mg/dL Plasma Lactic Acid Axel (0.7-2.0) mmol/L Urine Protein 3+ H (Negative) Urine Glucose (UA) Trace H (Negative) Urine Blood Trace H (Negative) Amorphous Sediment Few H (None) /hpf Urine Bacteria Rare H (None) /hpf Hyaline Casts 176 H (0-2) /lpf Urine Mucus Rare H (None) /hpf Diabetes panel 08/16/19 Range/Units 17:50 Sodium 138 (137-145) mmol/L Potassium 4.9 (3.5-5.1) mmol/L Chloride 105 (98-107) mmol/L Carbon Dioxide 22 (22-30) mmol/L BUN 32 H (9-20) mg/dL Creatinine 2.12 H (0.66-1.25) mg/dL Glucose 217 H (74-99) mg/dL Calcium 9.9 (8.4-10.2) mg/dL AST 36 (17-59) U/L ALT 44 (4-49) U/L Alkaline Phosphatase 90 (38-126) U/L Total Protein 7.9 (6.3-8.2) g/dL Albumin 4.6 (3.5-5.0) g/dL Calcium panel 08/16/19 Range/Units 17:50 Calcium 9.9 (8.4-10.2) mg/dL Albumin 4.6 (3.5-5.0) g/dL Pituitary panel 08/16/19 Range/Units 17:50 Sodium 138 (137-145) mmol/L Potassium 4.9 (3.5-5.1) mmol/L Chloride 105 (98-107) mmol/L Carbon Dioxide 22 (22-30) mmol/L BUN 32 H (9-20) mg/dL Creatinine 2.12 H (0.66-1.25) mg/dL Glucose 217 H (74-99) mg/dL Calcium 9.9 (8.4-10.2) mg/dL Adrenal panel 08/16/19 Range/Units 17:50 Sodium 138 (137-145) mmol/L Potassium 4.9 (3.5-5.1) mmol/L Chloride 105 (98-107) mmol/L Carbon Dioxide 22 (22-30) mmol/L BUN 32 H (9-20) mg/dL Creatinine 2.12 H (0.66-1.25) mg/dL Glucose 217 H (74-99) mg/dL Calcium 9.9 (8.4-10.2) mg/dL Total Bilirubin 1.3 (0.2-1.3) mg/dL AST 36 (17-59) U/L ALT 44 (4-49) U/L Alkaline Phosphatase 90 (38-126) U/L Total Protein 7.9 (6.3-8.2) g/dL Albumin 4.6 (3.5-5.0) g/dL Assessment and Plan Assessment: History of nausea vomiting abdominal pain. Patient will undergo computed tomography scan of the abdomen pelvis with oral contrast to the possible bowel obstruction. The patient will also have his stomach chart for emphysematous gastritis. Patient will be admitted overnight fluid hydrated.
[2019-08-16 19:27] LABS: Band Neutrophils % 15 %; Lymphocytes # (M) 0.22 k/uL (1.0-4.8); Monocytes # (M) 0.17 k/uL (0-1.0); Neutrophils % (M) 76 %; Nucleated Red Blood Cells 0 /100 WBC (0-0); Total Cells Counted 100
[2019-08-16] MEDS ORDERED: HYDROmorphone 1 MG/ML 1 ML SYRINGE IVP PRN (20:08)
[2019-08-16] MEDS ORDERED: NALOXONE 0.4 MG/ML 1 ML VIAL IV PRN (20:08)
--- NOTE | 2019-08-16 20:51 | CT ---
EXAMINATION TYPE: CT abdomen pelvis wo con DATE OF EXAM: 08/16/2019 COMPARISON: 12/28/2018 HISTORY: Abdominal pain, nausea, vomiting, diarrhea and fever. CT DLP: 674.9 mGycm Automated exposure control for dose reduction was used. There is oral contrast. Lung bases show mild subsegmental atelectasis. There is no pleural effusion. Heart size is normal. Th ere is no pericardial effusion. Aorta is atheromatous. Stomach is large. Liver and spleen appear norm al. There is no evidence of pancreatic mass. Bile ducts are not dilated. Gallbladder appears absent. There is no adrenal mass. Kidneys have normal size. There is no hydronephrosis. Ureters are not dilat ed. There is no retroperitoneal adenopathy. Bladder distends smoothly. There is no inguinal hernia. T here is no free fluid in the pelvis. There is apparent surgery of the mid sigmoid colon. There are mu ltiple proximal sigmoid diverticula. There is no sign of diverticulitis. Appendix is not seen. There is no sign of thickened appendix. There is no mesenteric edema. There is no ascites or free air. Ther e is no sign of a bowel obstruction. Lumbar vertebra have normal alignment. There is degenerative disc space narrowing at L2-3 and L3-4 wi th vacuum disc. There is a mild relative spinal stenosis at L3-4. There is multilevel mild posterior calcified disc herniation in the lower thoracic spine. The bony pelvis appears intact. IMPRESSION: Mild atherosclerotic vascular disease. Minimal subsegmental atelectasis at the lung bases. Previous c olon surgery. Mild sigmoid diverticulosis. No acute abnormality of the abdomen pelvis. No adverse geetha nge compared to old exam. There is clearing of the portal venous air and the posterior gastric wall a ir bubbles compared to old exam.
[2019-08-16] MEDS: SODIUM CHLORIDE 0.9% 1,000 ML IV SCH (21:42)
[2019-08-17] MEDS: LORazepam 2 MG/ML INJ IV PRN ×2 (00:29→16:18)
[2019-08-17] MEDS: SODIUM CHLORIDE 0.9% 1,000 ML IV SCH ×3 (05:38→20:50)
[2019-08-17] MEDS: ONDANSETRON 4 MG/2 ML VIAL IVP PRN ×2 (05:52→16:14)
[2019-08-17 06:55] LABS: Glucose,Whole Blood 122 mg/dL (75-99)
[2019-08-17 12:00] LABS: Glucose,Whole Blood 124 mg/dL (75-99)
[2019-08-17] MEDS ORDERED: SODIUM CHLORIDE 0.9% 1,000 ML IV ONE (12:08)
--- NOTE | 2019-08-17 12:08 | P.PN ---
Subjective Progress Note Date: 08/17/19 CHIEF COMPLAINT: Abnormal nausea vomiting with abdominal pain HISTORY OF PRESENT ILLNESS: The patient is a 74-year-old male who presented to the hospital with nausea including abdominal pain of the epigastrium for the past 1-2 days. He has past history of emphysematous gastritis over 6 months ago. He reports nausea. Abdominal pain is better. ROS: No fevers or chills. No new chest pain. No productive sputum PHYSICAL EXAM: VITAL SIGNS: Reviewed CONSTITUTIONAL: Well developed and in no acute distress. EYES: Conjuctivae without sclera icterus. Extraocular movements grossly intact. HEAD, EARS, NOSE, THROAT: Moist buccal mucosa. Head is atraumatic, normocephalic. Hears conversational speech. No nasal drainage. NECK: Supple. No thyroidomegaly. RESPIRATORY: Non-labored respirations and equal bilateral excursions. CARDIOVASCULAR: 2+ radial pulses. ABDOMEN: Soft. No peritonitis. MUSCULOSKELETAL: No gross deformity of the lower extremities noted. No clubbing. No cyanosis. SKIN: Good skin turgor. Well perfused. NEUROLOGIC: Cranial nerves II through XII grossly intact. No focal or lateralizing signs. PSYCH: Appropriate affect. Alert and oriented to person, place and time. CLINICAL LABS: White blood cell count normal, 4300. Initial lactic acid level down from 2.2 to normal 1.8. Creatinine elevated to 0.12 STUDIES: CT of the abdomen and pelvis reviewed in detail demonstrating no evidence of bowel obstruction. No evidence of free air. ASSESSMENT: 1. Intractable nausea and vomiting improved 2. Dehydration PLAN: 1. He wants to eat. CT reviewed with resolution of gastritis from before. No abdominal pain on exam. 2. Start ice chips and popsicles 3. IV fluid hydration. Objective - Vital Signs Vital signs: Vital Signs Temp 98.8 F 08/17/19 07:00 Pulse 104 H 08/17/19 07:00 Resp 16 08/17/19 07:00 BP 97/60 08/17/19 07:00 Pulse Ox 94 L 08/17/19 07:00 Intake & Output 08/16/19 08/17/19 08/17/19 18:59 06:59 18:59 Weight 83.007 kg 83.007 kg Other: Voiding Method Toilet Toilet # Voids 1 - Labs CBC & Chem 7: 08/16/19 17:50 05/15/20 17:50 Labs: Abnormal Lab Results - Last 24 Hours (Table) 08/16/19 08/16/19 08/16/19 Range/Units 17:50 17:50 17:50 Plt Count 129 L (150-450) k/uL Lymphocytes # (Manual) 0.22 L (1.0-4.8) k/uL BUN 32 H (9-20) mg/dL Creatinine 2.12 H (0.66-1.25) mg/dL Glucose 217 H (74-99) mg/dL POC Glucose (mg/dL) (75-99) mg/dL Plasma Lactic Acid Axel 2.2 H* (0.7-2.0) mmol/L Urine Protein (Negative) Urine Glucose (UA) (Negative) Urine Blood (Negative) Amorphous Sediment (None) /hpf Urine Bacteria (None) /hpf Hyaline Casts (0-2) /lpf Urine Mucus (None) /hpf 08/16/19 08/17/19 08/17/19 Range/Units 18:04 06:54 11:59 Plt Count (150-450) k/uL Lymphocytes # (Manual) (1.0-4.8) k/uL BUN (9-20) mg/dL Creatinine (0.66-1.25) mg/dL Glucose (74-99) mg/dL POC Glucose (mg/dL) 122 H 124 H (75-99) mg/dL Plasma Lactic Acid Axel (0.7-2.0) mmol/L Urine Protein 3+ H (Negative) Urine Glucose (UA) Trace H (Negative) Urine Blood Trace H (Negative) Amorphous Sediment Few H (None) /hpf Urine Bacteria Rare H (None) /hpf Hyaline Casts 176 H (0-2) /lpf Urine Mucus Rare H (None) /hpf Assessment and Plan (1) Abdominal pain Current Visit: Yes Status: Acute Code(s): R10.9 - UNSPECIFIED ABDOMINAL PAIN SNOMED Code(s): 54131190 (2) Dehydration Current Visit: Yes Status: Acute Code(s): E86.0 - DEHYDRATION SNOMED Code(s): 76522414 (3) Renal insufficiency Current Visit: Yes Status: Acute Code(s): N28.9 - DISORDER OF KIDNEY AND URETER, UNSPECIFIED SNOMED Code(s): 107914067 (4) Gastritis Current Visit: No Status: Acute Code(s): K29.70 - GASTRITIS, UNSPECIFIED, WITHOUT BLEEDING SNOMED Code(s): 0446697
[2019-08-17 17:06] LABS: Glucose,Whole Blood 112 mg/dL (75-99)
[2019-08-18] MEDS: ONDANSETRON 4 MG/2 ML VIAL IVP PRN ×3 (00:08→20:22)
[2019-08-18] MEDS: LORazepam 2 MG/ML INJ IV PRN ×3 (00:08→23:02)
[2019-08-18] MEDS: PANTOPRAZOLE 40 MG TABLET PO SCH ×2 (00:16→07:41)
[2019-08-18] MEDS: SODIUM CHLORIDE 0.9% 1,000 ML IV SCH ×2 (05:01→09:01)
[2019-08-18 07:08] LABS: Glucose,Whole Blood 99 mg/dL (75-99)
[2019-08-18] MEDS: HEPARIN SODIUM,PORCINE 5,000 UNIT/ML 1 ML VIAL SQ SCH ×2 (07:40→20:23)
[2019-08-18] MEDS: ASPIRIN 81 MG PO SCH (07:41)
[2019-08-18] MEDS: DULoxetine HCL 60 MG CAPSULE.DR PO SCH (07:41)
[2019-08-18] MEDS: ALLOPURINOL 100 MG TAB PO SCH ×2 (07:41→20:23)
--- NOTE | 2019-08-18 11:11 | P.CONS ---
History of Present Illness - History of Present Illness This is a pleasant 74 years old male with past medical history of coronary a rtery disease, diabetes mellitus, hypertension, hyperlipidemia, fibromyalgia, chronic kidney disease stage III. He follows up with Arnaud Plata his primary care doctor, also he follows up with Dr. Burgos his full time staff interpreter for his chronic kidney disease. He presents because of recurrent nausea and vomiting associated with diarrhea of one-day duration, as patient explained that is been going on all day long Patient was admitted with a diagnosis of gastroenteritis and he was treated symptomatically with normal saline at 1 30 mL/h and Ativan as needed, patient showing improvement, with his nausea vomiting are improving, he did not have bowel movement since last night. Patient with no abdominal pain. On admission his blood pressure was 92/54, currently is better improved, Rest of vitals are stable and patient is afebrile. Blood pressure this morning was 23/72 Labs showing platelets 129, rest of the CBC is unremarkable. BMP showing creatinine elevated at 12.12, baseline 1.3-1.9. Liver enzymes not elevated,Elevated lactic acid, came back to normal. urine Analysis suspicious of infection concentrated sample. Coronavirus not detected CT of the abdomen and pelvis with oral contrast on admission show no acute abnormality by radiologist On admission patient was treated with IV hydration with normal saline at 130 mL/h and symptomatically with Zofran, antiacids and pain medication Review of Systems CONSTITUTIONAL: No fever, no malaise, no fatigue. HEENT: No recent visual problems or hearing problems. Denied any sore throat. CARDIOVASCULAR: No orthopnea, PND, no palpitations, no syncope. PULMONARY: No shortness of breath, no cough, no hemoptysis. GASTROINTESTINAL: No diarrhea, no nausea, no vomiting, no abdominal pain. Normoactive bowel sounds. NEUROLOGICAL: No headaches, no weakness, no numbness. HEMATOLOGICAL: Denies any bleeding or petechiae. GENITOURINARY: Denies any burning micturition, frequency, or urgency. MUSCULOSKELETAL/RHEUMATOLOGICAL: Denies any joint pain, swelling, or any muscle pain. ENDOCRINE: Denies any polyuria or polydipsia. 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 Bladder surgery Last Myocardial Infarction Date:: 2010 History of Any Multi-Drug Resistant Organisms: None Reported Past Surgical History: Appendectomy, Bowel Resection, Cholecystectomy, Heart Catheterization With Stent Additional Past Surgical History / Comment(s): Colon Resection Feb 2017 Past Anesthesia/Blood Transfusion Reactions: Motion Sickness Date of Last Stent Placement:: 2010 Past Psychological History: Anxiety Smoking Status: Never smoker Past Alcohol Use History: None Reported Past Drug Use History: None Reported - Past Family History Father Family Medical History: Blood Disorder Additional Family Medical History / Comment(s): lived to Mother Family Medical History: Cancer Additional Family Medical History / Comment(s): Melanoma Medications and Allergies Home Medications Medication Instructions Recorded Confirmed Type Allopurinol [Zyloprim] 100 mg PO BID 09/25/16 08/16/19 History Aspirin [Adult Low Dose Aspirin EC] 162 mg PO DAILY 09/25/16 08/16/19 History Carvedilol [Coreg] 25 mg PO BID 09/25/16 08/16/19 History DULoxetine HCL [Cymbalta] 60 mg PO DAILY 09/25/16 08/16/19 History Ergocalciferol [Vitamin D2 50,000 unit PO Q14D 09/25/16 08/16/19 History (DRISDOL)] Furosemide [Lasix] 20 mg PO SUTUWETHSA 09/25/16 08/16/19 History LORazepam [Ativan] 1 mg PO TID PRN 09/25/16 08/16/19 History Liraglutide [Victoza 2-Seferino] 0.6 mg SQ DAILY 09/25/16 08/16/19 History Lisinopril [Zestril] 40 mg PO DAILY 09/25/16 08/16/19 History Multivitamins, Thera [Multivitamin 1 tab PO DAILY 09/25/16 08/16/19 History (formulary)] Nitroglycerin Sl Tabs [Nitrostat] 0.4 mg SUBLINGUAL Q5M PRN 09/25/16 08/16/19 History Nortriptyline HCl [Pamelor] 50 mg PO HS 09/25/16 08/16/19 History Rosuvastatin [Crestor] 10 mg PO HS 09/25/16 08/16/19 History Furosemide [Lasix] 40 mg PO MOFR 11/11/16 08/16/19 History traMADol HCl [Ultram] 50 mg PO BID PRN 02/02/17 08/16/19 History Omeprazole [PriLOSEC] 40 mg PO Q48H 08/16/19 08/16/19 History Terazosin [Hytrin] 1 mg PO QAM PRN 08/16/19 08/16/19 History Terazosin [Hytrin] 5 mg PO HS 08/16/19 08/16/19 History Allergies Allergy/AdvReac Type Severity Reaction Status Date / Time adhesive tape Allergy Rash/Hives Verified 08/16/19 17:25 Penicillins Allergy Itching Verified 08/16/19 17:25 NSAIDS (Non-Steroidal AdvReac Unknown UNABLE TO Verified 08/16/19 17:25 Anti-Inflamma TAKE DUE TO KIDNEY DISEASE. prednisone AdvReac DEPRESSION Verified 08/16/19 17:25 WITH LARGE DOSES Physical Exam Vitals: Vital Signs Temp Pulse Resp BP BP Pulse Ox 08/17/19 20:41 98.2 F 99 16 159/81 97 08/17/19 15:00 98.2 F 98 18 114/67 95 08/17/19 07:00 98.8 F 104 H 16 97/60 94 L 08/17/19 02:00 98.8 F 118 H 20 92/54 94 L 08/16/19 23:53 99.1 F 114 H 20 91/53 93 L Intake and Output 08/17/19 08/17/19 08/18/19 14:59 22:59 06:59 Other: Voiding Method Toilet # Voids 1 # Bowel Movements 2 GENERAL: The patient is alert and oriented x3, not in any acute distress. Well developed, well nourished. HEENT: Pupils are round and equally reacting to light. EOMI. No scleral icterus. No conjunctival pallor. Normocephalic, atraumatic. No pharyngeal erythema. No thyromegaly. CARDIOVASCULAR: S1 and S2 present. No murmurs, rubs, or gallops. PULMONARY: Chest is clear to auscultation, no wheezing or crackles. ABDOMEN: Soft, nontender, nondistended, normoactive bowel sounds. No palpable organomegaly. MUSCULOSKELETAL: No joint swelling or deformity. EXTREMITIES: No cyanosis, clubbing, or pedal edema. NEUROLOGICAL: Gross neurological examination did not reveal any focal deficits. SKIN: No rashes. No petechiae Results CBC & Chem 7: 08/16/19 17:50 08/16/19 17:50 Labs: Abnormal Lab Results - Last 24 Hours (Table) 08/17/19 08/17/19 08/17/19 Range/Units 06:54 11:59 17:04 POC Glucose (mg/dL) 122 H 124 H 112 H (75-99) mg/dL Assessment and Plan Assessment: Acute gastroenteritis with recurrent nausea vomiting, mostly viral infection Acute kidney injury Hypotension secondary to hypovolemia, present on admission. Improved Dehydration Lymphopenia Elevated lactic acid, came back to normal. Chronic thrombocytopenia Diabetes mellitus Hypertension Hyperlipidemia Chronic kidney disease stage III Fibromyalgia History of coronary artery disease Plan: This is a pleasant 74 years old male who presents with acute gastroenteritis and hypotension. Improved with hydration. Continue with antiemetics. Pain management. Labs and medication were reviewed.. Continue same treatment. Continue with symptomatic treatment. Resume home medication. Monitor lytes and vitals. DVT and GI prophylaxis. Further recommendations of the clinical course of the patient DVT prophylaxis: Subcutaneous heparin GI Prophylaxis: Pepcid Patient was instructed to follow up with his PCP upon discharge and he agrees Thank you for consulting us
[2019-08-18 12:21] LABS: Glucose,Whole Blood 137 mg/dL (75-99)
--- NOTE | 2019-08-18 12:43 | P.PN ---
Subjective Progress Note Date: 08/18/19 CHIEF COMPLAINT: Abnormal nausea vomiting with abdominal pain HISTORY OF PRESENT ILLNESS: The patient is a 74-year-old male who presented to the hospital with nausea including abdominal pain of the epigastrium for the past 1-2 days. He has past history of emphysematous gastritis over 6 months ago. He is having bowel movements. His abdominal pain has resolved. He is on ice chips. ROS: No fevers or chills. No new chest pain. No productive sputum PHYSICAL EXAM: VITAL SIGNS: Reviewed CONSTITUTIONAL: Well developed and in no acute distress. EYES: Conjuctivae without sclera icterus. Extraocular movements grossly intact. HEAD, EARS, NOSE, THROAT: Moist buccal mucosa. Head is atraumatic, norm ocephalic. Hears conversational speech. No nasal drainage. NECK: Supple. No thyroidomegaly. RESPIRATORY: Non-labored respirations and equal bilateral excursions. CARDIOVASCULAR: 2+ radial pulses. ABDOMEN: Soft. Non tender. MUSCULOSKELETAL: No gross deformity of the lower extremities noted. No clubbing. No cyanosis. SKIN: Good skin turgor. Well perfused. NEUROLOGIC: Cranial nerves II through XII grossly intact. No focal or lateralizing signs. PSYCH: Appropriate affect. Alert and oriented to person, place and time. LABS: Mag 1.8. Blood sugars less than 150 ASSESSMENT: 1. Intractable nausea and vomiting improved 2. Dehydration PLAN: 1. Start regular diet 2. Likely discharge in 24 hrs Objective - Vital Signs Vital signs: Vital Signs Temp 98.4 F 08/18/19 07:00 Pulse 93 08/18/19 07:00 Resp 16 08/18/19 07:00 BP 123/72 08/18/19 07:00 Pulse Ox 94 L 08/18/19 07:00 Intake & Output 08/17/19 08/18/19 08/18/19 18:59 06:59 18:59 Intake Total 100 Balance 100 Intake: Oral 100 Other: Voiding Method Toilet Toilet # Voids 1 # Bowel Movements 2 - Labs CBC & Chem 7: 08/16/19 17:50 08/16/19 17:50 Labs: Abnormal Lab Results - Last 24 Hours (Table) 08/17/19 08/18/19 Range/Units 17:04 12:20 POC Glucose (mg/dL) 112 H 137 H (75-99) mg/dL Assessment and Plan (1) Abdominal pain Current Visit: Yes Status: Acute Code(s): R10.9 - UNSPECIFIED ABDOMINAL PAIN SNOMED Code(s): 45118417 (2) Dehydration Current Visit: Yes Status: Acute Code(s): E86.0 - DEHYDRATION SNOMED Code(s): 79138502 (3) Renal insufficiency Current Visit: Yes Status: Acute Code(s): N28.9 - DISORDER OF KIDNEY AND URETER, UNSPECIFIED SNOMED Code(s): 388835214 (4) Gastritis Current Visit: No Status: Acute Code(s): K29.70 - GASTRITIS, UNSPECIFIED, WITHOUT BLEEDING SNOMED Code(s): 0534325
[2019-08-18 17:04] LABS: Glucose,Whole Blood 142 mg/dL (75-99)
[2019-08-18 20:26] LABS: Glucose,Whole Blood 132 mg/dL (75-99)
[2019-08-18] MEDS ORDERED: DOXAZOSIN 4 MG TAB PO SCH (21:00)
[2019-08-19] MEDS: SODIUM CHLORIDE 0.9% 1,000 ML IV SCH ×2 (03:41→07:46)
[2019-08-19 06:50] LABS: Glucose,Whole Blood 96 mg/dL (75-99)
[2019-08-19] MEDS: DULoxetine HCL 60 MG CAPSULE.DR PO SCH (07:45)
[2019-08-19] MEDS: PANTOPRAZOLE 40 MG TABLET PO SCH (07:45)
[2019-08-19] MEDS: ASPIRIN 81 MG PO SCH ×2 (07:45→09:03)
[2019-08-19] MEDS: HEPARIN SODIUM,PORCINE 5,000 UNIT/ML 1 ML VIAL SQ SCH (07:45)
[2019-08-19] MEDS: ALLOPURINOL 100 MG TAB PO SCH (07:46)
[2019-08-19 07:53] VITALS: BP 161/77; PULSE 76; RESP 18; TEMP 98.9
[2019-08-19] MEDS: ONDANSETRON 4 MG/2 ML VIAL IVP PRN (07:56)
[2019-08-19 08:27] LABS: Calcium 7.7 mg/dL (8.4-10.2); Potassium 3.6 mmol/L (3.5-5.1)
[2019-08-19 11:31] LABS: Glucose,Whole Blood 146 mg/dL (75-99)
--- NOTE | 2019-08-19 11:45 | P.DS ---
Providers Date of admission: 08/16/19 20:11 Expected date of discharge: 08/19/19 Attending physician: Rutsy Anaay Consults: 08/17/19 19:45 Consult Physician Routine Consulting Provider: Carlos Wright Reason/Comments: medical management Do you want consulting provider notified?: Yes Primary care physician: Arnaud [facility] Course: 74-year-old male who presented to emergency room due to nausea and vomiting. Patient was admitted to the hospital for further evaluation. Computed tomography scan did not reveal any evidence of bowel dissection. Patient was placed on IV fluids and diet was advanced as tolerated. The patient's symptoms have resolved. He was deemed stable for discharge home today per Dr. Anaya. Please see EMR for further hospital course details. Discharge diagnosis 1. Nausea and vomiting, possible gastroenteritis, resolved Nurse practitioner note has been reviewed by physician. Signing provider agrees with the documented findings, assessment, and plan of care. Patient Condition at Discharge: Stable Plan - Discharge Summary New Discharge Prescriptions: No Action Multivitamins, Thera [Multivitamin (formulary)] 1 tab PO DAILY Aspirin [Adult Low Dose Aspirin EC] 162 mg PO DAILY Nitroglycerin Sl Tabs [Nitrostat] 0.4 mg SUBLINGUAL Q5M PRN PRN Reason: Chest Pain LORazepam [Ativan] 1 mg PO TID PRN PRN Reason: Anxiety Ergocalciferol [Vitamin D2 (DRISDOL)] 50,000 unit PO Q14D Rosuvastatin [Crestor] 10 mg PO HS Nortriptyline HCl [Pamelor] 50 mg PO HS Liraglutide [Victoza 2-Seferino] 0.6 mg SQ DAILY DULoxetine HCL [Cymbalta] 60 mg PO DAILY Allopurinol [Zyloprim] 100 mg PO BID Lisinopril [Zestril] 40 mg PO DAILY Furosemide [Lasix] 20 mg PO SUTUWETHSA Carvedilol [Coreg] 25 mg PO BID Furosemide [Lasix] 40 mg PO MOFR traMADol HCl [Ultram] 50 mg PO BID PRN PRN Reason: Pain Omeprazole [PriLOSEC] 40 mg PO Q48H Terazosin [Hytrin] 1 mg PO QAM PRN PRN Reason: SBP>140 Terazosin [Hytrin] 5 mg PO HS Discharge Medication List Allopurinol [Zyloprim] 100 mg PO BID 09/25/16 [History] Aspirin [Adult Low Dose Aspirin EC] 162 mg PO DAILY 09/25/16 [History] Carvedilol [Coreg] 25 mg PO BID 09/25/16 [History] DULoxetine HCL [Cymbalta] 60 mg PO DAILY 09/25/16 [History] Ergocalciferol [Vitamin D2 (DRISDOL)] 50,000 unit PO Q14D 09/25/16 [History] Furosemide [Lasix] 20 mg PO SUTUWETHSA 09/25/16 [History] LORazepam [Ativan] 1 mg PO TID PRN 09/25/16 [History] Liraglutide [Victoza 2-Seferino] 0.6 mg SQ DAILY 09/25/16 [History] Lisinopril [Zestril] 40 mg PO DAILY 09/25/16 [History] Multivitamins, Thera [Multivitamin (formulary)] 1 tab PO DAILY 09/25/16 [History] Nitroglycerin Sl Tabs [Nitrostat] 0.4 mg SUBLINGUAL Q5M PRN 09/25/16 [History] Nortriptyline HCl [Pamelor] 50 mg PO HS 09/25/16 [History] Rosuvastatin [Crestor] 10 mg PO HS 09/25/16 [History] Furosemide [Lasix] 40 mg PO MOFR 11/11/16 [History] traMADol HCl [Ultram] 50 mg PO BID PRN 02/02/17 [History] Omeprazole [PriLOSEC] 40 mg PO Q48H 08/16/19 [History] Terazosin [Hytrin] 1 mg PO QAM PRN 08/16/19 [History] Terazosin [Hytrin] 5 mg PO HS 08/16/19 [History] Follow up Appointment(s)/Referral(s): Arnaud Gonsalez MD [Primary Care Provider] - 1-2 days (Office requests patients to set up their own follow up appointments, please call once discharged to do so) Rusty Anaya MD [STAFF PHYSICIAN] - As Needed Patient Instructions/Handouts: Abdominal Pain (ED)
== END 2019-08-19 12:00 | disposition home or self-care (01) | DRG 641 ==
LOC: EC 17:13 → 4SSUR 20:11
PROVIDERS: ADMIT Surgery; ATTEND Surgery
DX: E86.0 Dehydration (principal); N17.9 Acute kidney failure, unspecified; A08.4 Viral intestinal infection, unspecified; D69.6 Thrombocytopenia, unspecified; D72.810 Lymphocytopenia; E11.22 Type 2 diabetes mellitus with diabetic chronic kidney disease; E78.5 Hyperlipidemia, unspecified; E86.1 Hypovolemia; F41.9 Anxiety disorder, unspecified; I12.9 Hypertensive chronic kidney disease with stage 1 through stage 4 chronic kidney disease, or unspecified chronic kidney disease; I25.10 Atherosclerotic heart disease of native coronary artery without angina pectoris; I25.2 Old myocardial infarction; I95.89 Other hypotension; M79.7 Fibromyalgia; N18.3 Chronic kidney disease, stage 3 (moderate); Z79.82 Long term (current) use of aspirin; Z79.899 Other long term (current) drug therapy; Z80.8 Family history of malignant neoplasm of other organs or systems; Z90.49 Acquired absence of other specified parts of digestive tract; Z88.6 Allergy status to analgesic agent; Z88.0 Allergy status to penicillin; Z88.8 Allergy status to other drugs, medicaments and biological substances; Z95.5 Presence of coronary angioplasty implant and graft; Z20.828 Contact with and (suspected) exposure to other viral communicable diseases
CPT/HCPCS: 36415; 74176; 80048; 80053; 81001; 82150; 82550; 83605; 83690; 83735; 84484; 85025; 87635; 96361; 96374; 96375; 99285

== ENCOUNTER 2019-08-28 13:57 | Day surgery (SDC) | payer MEDICARE ==
[2019-08-28 14:18] LABS: Glucose,Whole Blood 151 mg/dL (75-99)
[2019-08-28 14:27] VITALS: TEMP 97.8
[2019-08-28] MEDS ORDERED: LIDOCAINE 1% (10MG/ML) FOR IV START INTRADERMA ONE (14:28)
[2019-08-28] MEDS ORDERED: LACTATED RINGERS 1,000 ML IV ONE ×2 (14:28→15:25)
[2019-08-28 14:39] LABS: Basophils % (A) 0 %; Eosinophils # (A) 0.2 k/uL (0-0.7); Eosinophils % (A) 2 %; HCT 45.2 % (39.0-53.0); Lymphocytes % (A) 21 %; MCH 30.3 pg (25.0-35.0); MCHC 33.1 g/dL (31.0-37.0); MCV 91.5 fL (80.0-100.0); Mean Platelet Volume 8.3; Monocytes # (A) 0.6 k/uL (0-1.0); Monocytes % (A) 7 %; Neutrophils # (A) 6.3 k/uL (1.3-7.7); Neutrophils % (A) 67 %; RBC 4.93 m/uL (4.30-5.90); RDW 13.8 % (11.5-15.5); WBC 9.5 k/uL (3.8-10.6)
[2019-08-28 14:43] LABS: Platelet Count 195 k/uL (150-450)
[2019-08-28] MEDS ORDERED: PROPOFOL 10 MG/ML 20 ML VIAL IV ONE (15:01)
[2019-08-28 15:02] LABS: Albumin 4.3 g/dL (3.5-5.0); Calcium 9.2 mg/dL (8.4-10.2); Total Bilirubin 1.2 mg/dL (0.2-1.3); Total Protein 7.4 g/dL (6.3-8.2)
--- NOTE | 2019-08-28 15:24 | P.GSHP ---
History of Present Illness H&P Date: 08/28/19 Chief Complaint: History of epigastric pain This a 74-year-old male with complaints of epigastric pain nausea and diarrhea. Patient is today for EGD. 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 Bladder surgery Last Myocardial Infarction Date:: 2010 History of Any Multi-Drug Resistant Organisms: None Reported Past Surgical History: Appendectomy, Bowel Resection, Cholecystectomy, Heart Catheterization With Stent Additional Past Surgical History / Comment(s): Colon Resection Feb 2017 Past Anesthesia/Blood Transfusion Reactions: Motion Sickness Date of Last Stent Placement:: 2010 Past Psychological History: Anxiety Smoking Status: Never smoker Past Alcohol Use History: None Reported Past Drug Use History: None Reported - Past Family History Father Family Medical History: Blood Disorder Additional Family Medical History / Comment(s): lived to Mother Family Medical History: Cancer Additional Family Medical History / Comment(s): Melanoma Medications and Allergies Home Medications Medication Instructions Recorded Confirmed Type Allopurinol [Zyloprim] 100 mg PO BID 09/25/16 08/28/19 History Aspirin [Adult Low Dose Aspirin EC] 162 mg PO DAILY 09/25/16 08/28/19 History Carvedilol [Coreg] 25 mg PO BID 09/25/16 08/28/19 History DULoxetine HCL [Cymbalta] 60 mg PO DAILY 09/25/16 08/28/19 History Ergocalciferol [Vitamin D2 50,000 unit PO Q14D 09/25/16 08/28/19 History (DRISDOL)] Furosemide [Lasix] 20 mg PO SUTUWETHSA 09/25/16 08/28/19 History LORazepam [Ativan] 1 mg PO TID PRN 09/25/16 08/28/19 History Liraglutide [Victoza 2-Seferino] 0.6 mg SQ DAILY 09/25/16 08/28/19 History Lisinopril [Zestril] 40 mg PO DAILY 09/25/16 08/28/19 History Multivitamins, Thera [Multivitamin 1 tab PO DAILY 09/25/16 08/28/19 History (formulary)] Nitroglycerin Sl Tabs [Nitrostat] 0.4 mg SUBLINGUAL Q5M PRN 09/25/16 08/28/19 History Nortriptyline HCl [Pamelor] 50 mg PO HS 09/25/16 08/28/19 History Rosuvastatin [Crestor] 10 mg PO HS 09/25/16 08/28/19 History Furosemide [Lasix] 40 mg PO MOFR 11/11/16 08/28/19 History traMADol HCl [Ultram] 50 mg PO BID PRN 02/02/17 08/28/19 History Omeprazole [PriLOSEC] 40 mg PO Q48H 08/16/19 08/28/19 History Terazosin [Hytrin] 1 mg PO QAM PRN 08/16/19 08/28/19 History Terazosin [Hytrin] 5 mg PO HS 08/16/19 08/28/19 History Allergies Allergy/AdvReac Type Severity Reaction Status Date / Time adhesive tape Allergy Rash/Hives Verified 08/16/19 17:25 Penicillins Allergy Itching Verified 08/16/19 17:25 NSAIDS (Non-Steroidal AdvReac Unknown UNABLE TO Verified 08/16/19 17:25 Anti-Inflamma TAKE DUE TO KIDNEY DISEASE. prednisone AdvReac DEPRESSION Verified 08/16/19 17:25 WITH LARGE DOSES Surgical - Exam Vital Signs Temp Pulse Resp BP Pulse Ox 97.8 F 85 18 167/86 96 08/28/19 14:26 08/28/19 14:26 08/28/19 14:08/28/19 14:08/28/19 14:26 - General well developed, well nourished, no distress - Eyes PERRL - ENT normal pinna - Neck no masses - Respiratory normal expansion - Cardiovascular Rhythm: regular - Abdomen Abdomen: soft, non tender Results - Labs 08/28/19 14:20 08/28/19 14:20 Abnormal Lab Results - Last 24 Hours (Table) 08/28/19 08/28/19 Range/Units 14:16 14:20 BUN 24 H (9-20) mg/dL Creatinine 1.71 H (0.66-1.25) mg/dL Glucose 162 H (74-99) mg/dL POC Glucose (mg/dL) 151 H (75-99) mg/dL Diabetes panel 08/28/19 Range/Units 14:20 Sodium 140 (137-145) mmol/L Potassium 4.0 (3.5-5.1) mmol/L Chloride 103 (98-107) mmol/L Carbon Dioxide 26 (22-30) mmol/L BUN 24 H (9-20) mg/dL Creatinine 1.71 H (0.66-1.25) mg/dL Glucose 162 H (74-99) mg/dL Calcium 9.2 (8.4-10.2) mg/dL AST 23 (17-59) U/L ALT 23 (4-49) U/L Alkaline Phosphatase 96 (38-126) U/L Total Protein 7.4 (6.3-8.2) g/dL Albumin 4.3 (3.5-5.0) g/dL Calcium panel 08/28/19 Range/Units 14:20 Calcium 9.2 (8.4-10.2) mg/dL Albumin 4.3 (3.5-5.0) g/dL Pituitary panel 08/28/19 Range/Units 14:20 Sodium 140 (137-145) mmol/L Potassium 4.0 (3.5-5.1) mmol/L Chloride 103 (98-107) mmol/L Carbon Dioxide 26 (22-30) mmol/L BUN 24 H (9-20) mg/dL Creatinine 1.71 H (0.66-1.25) mg/dL Glucose 162 H (74-99) mg/dL Calcium 9.2 (8.4-10.2) mg/dL Adrenal panel 08/28/19 Range/Units 14:20 Sodium 140 (137-145) mmol/L Potassium 4.0 (3.5-5.1) mmol/L Chloride 103 (98-107) mmol/L Carbon Dioxide 26 (22-30) mmol/L BUN 24 H (9-20) mg/dL Creatinine 1.71 H (0.66-1.25) mg/dL Glucose 162 H (74-99) mg/dL Calcium 9.2 (8.4-10.2) mg/dL Total Bilirubin 1.2 (0.2-1.3) mg/dL AST 23 (17-59) U/L ALT 23 (4-49) U/L Alkaline Phosphatase 96 (38-126) U/L Total Protein 7.4 (6.3-8.2) g/dL Albumin 4.3 (3.5-5.0) g/dL Assessment and Plan Assessment: Epigastric pain We'll perform EGD
--- NOTE | 2019-08-28 15:25 | P.OP ---
Date of Procedure: 08/28/19 Preoperative Diagnosis: Epigastric pain Postoperative Diagnosis: Antral gastritis Procedure(s) Performed: EGD Anesthesia: MAC Surgeon: Rusty Anaya Pathology: other (Antrum) Condition: stable Disposition: PACU Description of Procedure: The patient's placed on the endoscopy table in the lateral position. He received IV sedation. The gastro-/oropharynx and passed in the esophagus into the stomach. Scope then placed through the pylorus. The first and second portion of the duodenum appeared normal. Scope was then brought back the antrum this appeared inflamed. A biopsies performed. The scope was then retroflexed and the remainder stomach appeared normal. The patient had a small hiatal herni a. The GE junction was at 38 cm. The distal esophagus was inflamed and a lapse performed. The proximal esophagus appeared normal. Scope withdrawn the patient.
[2019-08-28 15:27] VITALS: RESP 16
[2019-08-28 15:53] VITALS: BP 159/85; PULSE 78
== END 2019-08-28 15:56 | disposition home or self-care (01) ==
LOC: ORWHC2ENDO 13:57
PROVIDERS: ATTEND Surgery
DX: K20.9 Esophagitis, unspecified (principal); K44.9 Diaphragmatic hernia without obstruction or gangrene; I25.10 Atherosclerotic heart disease of native coronary artery without angina pectoris; E11.9 Type 2 diabetes mellitus without complications; M79.7 Fibromyalgia; E78.5 Hyperlipidemia, unspecified; I10 Essential (primary) hypertension; I25.2 Old myocardial infarction; R55 Syncope and collapse; M10.9 Gout, unspecified; N26.9 Renal sclerosis, unspecified; I12.9 Hypertensive chronic kidney disease with stage 1 through stage 4 chronic kidney disease, or unspecified chronic kidney disease; E11.22 Type 2 diabetes mellitus with diabetic chronic kidney disease; N18.3 Chronic kidney disease, stage 3 (moderate); Z98.890 Other specified postprocedural states; Z90.49 Acquired absence of other specified parts of digestive tract; Z95.5 Presence of coronary angioplasty implant and graft; F41.9 Anxiety disorder, unspecified; Z83.2 Family history of diseases of the blood and blood-forming organs and certain disorders involving the immune mechanism; Z80.8 Family history of malignant neoplasm of other organs or systems; Z79.84 Long term (current) use of oral hypoglycemic drugs; Z79.82 Long term (current) use of aspirin; Z79.891 Long term (current) use of opiate analgesic; Z79.899 Other long term (current) drug therapy; Z88.6 Allergy status to analgesic agent; Z88.0 Allergy status to penicillin; Z88.8 Allergy status to other drugs, medicaments and biological substances
CPT/HCPCS: 88305; 80053; 85025; 43239; J2704

== ENCOUNTER 2020-12-07 02:59 | Inpatient (IN) | payer MEDICARE ==
[2020-12-07] MEDS ORDERED: SODIUM CHLORIDE 0.9% 1,000 ML IV STA ×2 (03:10→04:22)
[2020-12-07] MEDS ORDERED: ACETAMINOPHEN TAB 500 MG TAB PO STA (03:10)
[2020-12-07] MEDS ORDERED: ONDANSETRON 4 MG/2 ML VIAL IVP STA (03:10)
--- NOTE | 2020-12-07 03:11 | ED ---
Fever HPI - General Stated Complaint: NVD, fever Time Seen by Provider: 12/07/20 03:00 Source: RN notes reviewed, old records reviewed - History of Present Illness MD Complaint: fever, malaise, weakness -: days(s) Temperature Source: subjective Context: multiple patients with similar symptoms Associated Symptoms: cough, abdominal pain, nausea, vomiting Treatments Prior to Arrival: none - Related Data Home Medications Medication Instructions Recorded Confirmed Aspirin [Adult Low Dose Aspirin EC] 81 mg PO DAILY 09/25/16 12/07/20 Carvedilol [Coreg] 25 mg PO BID 09/25/16 12/07/20 DULoxetine HCL [Cymbalta] 60 mg PO DAILY 09/25/16 12/07/20 Ergocalciferol [Vitamin D2 50,000 unit PO Q14D 09/25/16 12/07/20 (DRISDOL)] Furosemide [Lasix] 20 mg PO SUTUWETHSA 09/25/16 12/07/20 Liraglutide [Victoza 2-Seferino] 0.6 mg SQ DAILY 09/25/16 12/07/20 Multivitamins, Thera [Multivitamin 1 tab PO DAILY 09/25/16 12/07/20 (formulary)] Nitroglycerin Sl Tabs [Nitrostat] 0.4 mg SUBLINGUAL Q5M PRN 09/25/16 12/07/20 Nortriptyline HCl [Pamelor] 50 mg PO HS 09/25/16 12/07/20 Rosuvastatin [Crestor] 10 mg PO HS 09/25/16 12/07/20 allopurinoL [Zyloprim] 100 mg PO DAILY 09/25/16 12/07/20 Furosemide [Lasix] 40 mg PO MOFR 11/11/16 12/07/20 traMADol HCl [Ultram] 50 mg PO BID PRN 02/02/17 12/07/20 Terazosin [Hytrin] 1 mg PO DAILY PRN 08/16/19 12/07/20 Terazosin [Hytrin] 5 mg PO HS 08/16/19 12/07/20 Previous Rx's Medication Instructions Recorded Acetaminophen Tab [Tylenol] 650 mg PO Q6HR PRN tab 12/11/20 Levofloxacin [Levaquin] 250 mg PO DAILY 10 Days #10 tab 12/11/20 Magnesium Oxide [Mag-Ox] 400 mg PO BID 4 Days #8 tab 12/11/20 Omeprazole [PriLOSEC] 20 mg PO AC-BID 20 Days #40 cap 12/11/20 Sodium Bicarbonate Tab 650 mg PO BID #60 tab 12/11/20 amLODIPine [Norvasc] 5 mg PO DAILY #30 tab 12/11/20 metroNIDAZOLE [Flagyl] 500 mg PO Q8HR 10 Days #30 tab 12/11/20 Allergies Allergy/AdvReac Type Severity Reaction Status Date / Time adhesive tape Allergy Rash/Hives Verified 12/07/20 09:19 Penicillins Allergy Itching Verified 12/07/20 09:19 NSAIDS (Non-Steroidal AdvReac Unknown UNABLE TO Verified 12/07/20 09:19 Anti-Inflamma TAKE DUE TO KIDNEY DISEASE. prednisone AdvReac DEPRESSION Verified 12/07/20 09:19 WITH LARGE DOSES Review of Systems ROS Statement: Those systems with pertinent positive or pertinent negative responses have been documented in the HPI. ROS Other: All systems not noted in ROS Statement are negative. 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 Bladder surgery Last Myocardial Infarction Date:: 2010 History of Any Multi-Drug Resistant Organisms: None Reported Past Surgical History: Appendectomy, Bowel Resection, Cholecystectomy, Heart Catheterization With Stent Additional Past Surgical History / Comment(s): Colon Resection Feb 2017 Past Anesthesia/Blood Transfusion Reactions: Motion Sickness Date of Last Stent Placement:: 2010 Past Psychological History: Anxiety Past Alcohol Use History: None Reported Past Drug Use History: None Reported - Past Family History Father Family Medical History: Blood Disorder Additional Family Medical History / Comment(s): lived to Mother Family Medical History: Cancer Additional Family Medical History / Comment(s): Melanoma General Exam General appearance: alert, in no apparent distress Head exam: Present: atraumatic, normocephalic, normal inspection Eye exam: Present: normal appearance, PERRL, EOMI. Absent: scleral icterus, conjunctival injection, periorbital swelling ENT exam: Present: normal exam, mucous membranes moist Neck exam: Present: normal inspection. Absent: tenderness, meningismus, lymphadenopathy Respiratory exam: Present: normal lung sounds bilaterally. Absent: respiratory distress, wheezes, rales, rhonchi, stridor Cardiovascular Exam: Present: regular rate, normal rhythm, normal heart sounds. Absent: systolic murmur, diastolic murmur, rubs, gallop, clicks GI/Abdominal exam: Present: soft, normal bowel sounds. Absent: distended, tenderness, guarding, rebound, rigid Extremities exam: Present: normal inspection, full ROM, normal capillary refill. Absent: tenderness, pedal edema, joint swelling, calf tenderness Back exam: Present: normal inspection Neurological exam: Present: alert, oriented X3, CN II-XII intact Psychiatric exam: Present: normal affect, normal mood Skin exam: Present: warm, dry, intact, normal color. Absent: rash Course Vital Signs 12/07/20 12/07/20 12/07/20 03:11 04:13 05:04 Temperature 99.6 F 98.7 F Pulse Rate 125 H 106 H 98 Pulse Rate [ Pulse Oximetery ] Respiratory 18 18 18 Rate Blood Pressure 116/75 125/77 121/74 Blood Pressure [Left Arm] O2 Sat by Pulse 94 L 95 96 Oximetry 12/07/20 05:13 Temperature 98.5 F Pulse Rate Pulse Rate [ 100 Pulse Oximetery ] Respiratory 16 Rate Blood Pressure Blood Pressure 134/70 [Left Arm] O2 Sat by Pulse 96 Oximetry - Reevaluation(s) Reevaluation #1: 12/07/20 Medical record is reviewed Patient symptoms are improved here in the emergency department Patient is informed results and questions answered Patient is in no acute distress Medical Decision Making - Lab Data Result diagrams: 12/10/20 07:09 12/11/20 05:30 Lab Results 12/07/20 12/07/20 12/07/20 Range/Units 03:16 03:16 03:16 WBC 7.9 (3.8-10.6) k/uL RBC 5.04 (4.30-5.90) m/uL Hgb 16.0 (13.0-17.5) gm/dL Hct 45.9 (39.0-53.0) % MCV 91.1 (80.0-100.0) fL MCH 31.7 (25.0-35.0) pg MCHC 34.8 (31.0-37.0) g/dL RDW 13.7 (11.5-15.5) % Plt Count 137 L (150-450) k/uL Plt Count Comment MPV 8.1 Immature Gran % (Auto) % Absolute Nucleated RBC (0.00-0.00) X 10*3/uL Neutrophils % % Neutrophils % (Manual) 37 % Band Neuts % (Manual) 44 % Lymphocytes % % Lymphocytes % (Manual) 6 % Monocytes % % Monocytes % (Manual) 10 % Eosinophils % % Eosinophils % (Manual) 3 % Basophils % % Immature Gran # (0.00-0.04) X 10*3/uL Neutrophils # (1.80-7.70) X 10*3/uL Neutrophils # (Manual) 6.30 (1.3-7.7) k/uL Lymphocytes # (0.90-5.00) X 10*3/uL Lymphocytes # (Manual) 0.47 L (1.0-4.8) k/uL Monocytes # (0.20-1.00) X 10*3/uL Monocytes # (Manual) 0.79 (0-1.0) k/uL Eosinophils # (0.04-0.35) X 10*3/uL Eosinophils # (Manual) 0.24 (0-0.7) k/uL Basophils # (0.00-0.10) X 10*3/uL Nucleated RBCs 0 (0-0) /100 WBC NRBC/100 WBC Diff (0.0-0.0) /100 WBCS Manual Slide Review Performed RBC Morphology PT 10.3 (9.0-12.0) sec INR 1.0 (<1.2) APTT 22.8 (22.0-30.0) sec Sodium 137 (137-145) mmol/L Potassium 5.4 H (3.5-5.1) mmol/L Chloride 105 (98-107) mmol/L Carbon Dioxide 19 L (22-30) mmol/L Anion Gap 13 mmol/L BUN 41 H (9-20) mg/dL Creatinine 3.13 H (0.66-1.25) mg/dL Est GFR (CKD-EPI)AfAm 21 (>60 ml/min/1.73 sqM) Est GFR (CKD-EPI)NonAf 18 (>60 ml/min/1.73 sqM) BUN/Creatinine Ratio (12.00-20.00) Ratio Glucose 194 H (74-99) mg/dL POC Glucose (mg/dL) (75-99) mg/dL POC Glu Student Success Coach ID Lactic Ac Sepsis Rflx Plasma Lactic Acid Axel (0.7-2.0) mmol/L Calcium 9.6 (8.4-10.2) mg/dL Magnesium 2.0 (1.6-2.3) mg/dL Total Bilirubin 0.9 (0.2-1.3) mg/dL AST 30 (17-59) U/L ALT 29 (4-49) U/L Alkaline Phosphatase 102 (38-126) U/L Lactate Dehydrogenase 460 (313-618) U/L C-Reactive Protein 2.5 H (<1.0) mg/dL Total Protein 7.5 (6.3-8.2) g/dL Albumin 4.6 (3.5-5.0) g/dL Globulin (1.6-3.3) g/dL Albumin/Globulin Ratio (1.60-3.17) g/dL Procalcitonin (0.02-0.09) ng/mL Urine Color Urine Appearance (Clear) Urine pH (5.0-8.0) Ur Specific Wesley (1.001-1.035) Urine Protein (Negative) Urine Glucose (UA) (Negative) Urine Ketones (Negative) Urine Blood (Negative) Urine Nitrite (Negative) Urine Bilirubin (Negative) Urine Urobilinogen (<2.0) mg/dL Ur Leukocyte Esterase (Negative) Urine RBC (0-5) /hpf Urine WBC (0-5) /hpf Urine Mucus (None) /hpf 12/07/20 12/07/20 12/07/20 Range/Units 03:43 04:25 06:38 WBC (3.8-10.6) k/uL RBC (4.30-5.90) m/uL Hgb (13.0-17.5) gm/dL Hct (39.0-53.0) % MCV (80.0-100.0) fL MCH (25.0-35.0) pg MCHC (31.0-37.0) g/dL RDW (11.5-15.5) % Plt Count (150-450) k/uL Plt Count Comment MPV Immature Gran % (Auto) % Absolute Nucleated RBC (0.00-0.00) X 10*3/uL Neutrophils % % Neutrophils % (Manual) % Band Neuts % (Manual) % Lymphocytes % % Lymphocytes % (Manual) % Monocytes % % Monocytes % (Manual) % Eosinophils % % Eosinophils % (Manual) % Basophils % % Immature Gran # (0.00-0.04) X 10*3/uL Neutrophils # (1.80-7.70) X 10*3/uL Neutrophils # (Manual) (1.3-7.7) k/uL Lymphocytes # (0.90-5.00) X 10*3/uL Lymphocytes # (Manual) (1.0-4.8) k/uL Monocytes # (0.20-1.00) X 10*3/uL Monocytes # (Manual) (0-1.0) k/uL Eosinophils # (0.04-0.35) X 10*3/uL Eosinophils # (Manual) (0-0.7) k/uL Basophils # (0.00-0.10) X 10*3/uL Nucleated RBCs (0-0) /100 WBC NRBC/100 WBC Diff (0.0-0.0) /100 WBCS Manual Slide Review RBC Morphology PT (9.0-12.0) sec INR (<1.2) APTT (22.0-30.0) sec Sodium (137-145) mmol/L Potassium (3.5-5.1) mmol/L Chloride (98-107) mmol/L Carbon Dioxide (22-30) mmol/L Anion Gap mmol/L BUN (9-20) mg/dL Creatinine (0.66-1.25) mg/dL Est GFR (CKD-EPI)AfAm (>60 ml/min/1.73 sqM) Est GFR (CKD-EPI)NonAf (>60 ml/min/1.73 sqM) BUN/Creatinine Ratio (12.00-20.00) Ratio Glucose (74-99) mg/dL POC Glucose (mg/dL) (75-99) mg/dL POC Glu Student Success Coach ID Lactic Ac Sepsis Rflx Y Plasma Lactic Acid Axel 2.1 H* 1.6 (0.7-2.0) mmol/L Calcium (8.4-10.2) mg/dL Magnesium (1.6-2.3) mg/dL Total Bilirubin (0.2-1.3) mg/dL AST (17-59) U/L ALT (4-49) U/L Alkaline Phosphatase (38-126) U/L Lactate Dehydrogenase (313-618) U/L C-Reactive Protein (<1.0) mg/dL Total Protein (6.3-8.2) g/dL Albumin (3.5-5.0) g/dL Globulin (1.6-3.3) g/dL Albumin/Globulin Ratio (1.60-3.17) g/dL Procalcitonin (0.02-0.09) ng/mL Urine Color Urine Appearance (Clear) Urine pH (5.0-8.0) Ur Specific Wesley (1.001-1.035) Urine Protein (Negative) Urine Glucose (UA) (Negative) Urine Ketones (Negative) Urine Blood (Negative) Urine Nitrite (Negative) Urine Bilirubin (Negative) Urine Urobilinogen (<2.0) mg/dL Ur Leukocyte Esterase (Negative) Urine RBC (0-5) /hpf Urine WBC (0-5) /hpf Urine Mucus (None) /hpf 12/07/20 12/07/20 12/07/20 Range/Units 12:16 13:45 17:20 WBC (3.8-10.6) k/uL RBC (4.30-5.90) m/uL Hgb (13.0-17.5) gm/dL Hct (39.0-53.0) % MCV (80.0-100.0) fL MCH (25.0-35.0) pg MCHC (31.0-37.0) g/dL RDW (11.5-15.5) % Plt Count (150-450) k/uL Plt Count Comment MPV Immature Gran % (Auto) % Absolute Nucleated RBC (0.00-0.00) X 10*3/uL Neutrophils % % Neutrophils % (Manual) % Band Neuts % (Manual) % Lymphocytes % % Lymphocytes % (Manual) % Monocytes % % Monocytes % (Manual) % Eosinophils % % Eosinophils % (Manual) % Basophils % % Immature Gran # (0.00-0.04) X 10*3/uL Neutrophils # (1.80-7.70) X 10*3/uL Neutrophils # (Manual) (1.3-7.7) k/uL Lymphocytes # (0.90-5.00) X 10*3/uL Lymphocytes # (Manual) (1.0-4.8) k/uL Monocytes # (0.20-1.00) X 10*3/uL Monocytes # (Manual) (0-1.0) k/uL Eosinophils # (0.04-0.35) X 10*3/uL Eosinophils # (Manual) (0-0.7) k/uL Basophils # (0.00-0.10) X 10*3/uL Nucleated RBCs (0-0) /100 WBC NRBC/100 WBC Diff (0.0-0.0) /100 WBCS Manual Slide Review RBC Morphology PT (9.0-12.0) sec INR (<1.2) APTT (22.0-30.0) sec Sodium (137-145) mmol/L Potassium (3.5-5.1) mmol/L Chloride (98-107) mmol/L Carbon Dioxide (22-30) mmol/L Anion Gap mmol/L BUN (9-20) mg/dL Creatinine (0.66-1.25) mg/dL Est GFR (CKD-EPI)AfAm (>60 ml/min/1.73 sqM) Est GFR (CKD-EPI)NonAf (>60 ml/min/1.73 sqM) BUN/Creatinine Ratio (12.00-20.00) Ratio Glucose (74-99) mg/dL POC Glucose (mg/dL) 164 H 140 H (75-99) mg/dL POC Glu Student Success Coach ID Nicki Saravia Joy Lactic Ac Sepsis Rflx Plasma Lactic Acid Axel (0.7-2.0) mmol/L Calcium (8.4-10.2) mg/dL Magnesium (1.6-2.3) mg/dL Total Bilirubin (0.2-1.3) mg/dL AST (17-59) U/L ALT (4-49) U/L Alkaline Phosphatase (38-126) U/L Lactate Dehydrogenase (313-618) U/L C-Reactive Protein (<1.0) mg/dL Total Protein (6.3-8.2) g/dL Albumin (3.5-5.0) g/dL Globulin (1.6-3.3) g/dL Albumin/Globulin Ratio (1.60-3.17) g/dL Procalcitonin (0.02-0.09) ng/mL Urine Color Light Yellow Urine Appearance Clear (Clear) Urine pH 5.0 (5.0-8.0) Ur Specific Wesley 1.010 (1.001-1.035) Urine Protein 1+ H (Negative) Urine Glucose (UA) 1+ H (Negative) Urine Ketones Negative (Negative) Urine Blood Trace H (Negative) Urine Nitrite Negative (Negative) Urine Bilirubin Negative (Negative) Urine Urobilinogen <2.0 (<2.0) mg/dL Ur Leukocyte Esterase Negative (Negative) Urine RBC <1 (0-5) /hpf Urine WBC <1 (0-5) /hpf Urine Mucus Rare H (None) /hpf 12/07/20 12/08/20 12/08/20 Range/Units 21:20 05:11 05:11 WBC 4.90 (3.8-10.6) k/uL RBC 4.21 L (4.30-5.90) m/uL Hgb 13.1 (13.0-17.5) gm/dL Hct 39.4 L (39.0-53.0) % MCV 93.6 (80.0-100.0) fL MCH 31.1 (25.0-35.0) pg MCHC 33.2 (31.0-37.0) g/dL RDW 13.2 (11.5-15.5) % Plt Count 122 L (150-450) k/uL Plt Count Comment DECREASED A MPV 11.9 Immature Gran % (Auto) 0.2 % Absolute Nucleated RBC 0 (0.00-0.00) X 10*3/uL Neutrophils % 64.3 % Neutrophils % (Manual) % Band Neuts % (Manual) % Lymphocytes % 17.6 % Lymphocytes % (Manual) % Monocytes % 15.3 % Monocytes % (Manual) % Eosinophils % 2.4 % Eosinophils % (Manual) % Basophils % 0.2 % Immature Gran # 0.01 (0.00-0.04) X 10*3/uL Neutrophils # 3.15 (1.80-7.70) X 10*3/uL Neutrophils # (Manual) (1.3-7.7) k/uL Lymphocytes # 0.86 L (0.90-5.00) X 10*3/uL Lymphocytes # (Manual) (1.0-4.8) k/uL Monocytes # 0.75 (0.20-1.00) X 10*3/uL Monocytes # (Manual) (0-1.0) k/uL Eosinophils # 0.12 (0.04-0.35) X 10*3/uL Eosinophils # (Manual) (0-0.7) k/uL Basophils # 0.01 (0.00-0.10) X 10*3/uL Nucleated RBCs (0-0) /100 WBC NRBC/100 WBC Diff 0 (0.0-0.0) /100 WBCS Manual Slide Review RBC Morphology NORMAL PT (9.0-12.0) sec INR (<1.2) APTT (22.0-30.0) sec Sodium (137-145) mmol/L Potassium (3.5-5.1) mmol/L Chloride (98-107) mmol/L Carbon Dioxide (22-30) mmol/L Anion Gap mmol/L BUN (9-20) mg/dL Creatinine (0.66-1.25) mg/dL Est GFR (CKD-EPI)AfAm (>60 ml/min/1.73 sqM) Est GFR (CKD-EPI)NonAf (>60 ml/min/1.73 sqM) BUN/Creatinine Ratio (12.00-20.00) Ratio Glucose (74-99) mg/dL POC Glucose (mg/dL) 125 H (75-99) mg/dL POC Glu Student Success Coach ID Edison Marie Ac Sepsis Rflx Plasma Lactic Acid Axel (0.7-2.0) mmol/L Calcium (8.4-10.2) mg/dL Magnesium (1.6-2.3) mg/dL Total Bilirubin (0.2-1.3) mg/dL AST (17-59) U/L ALT (4-49) U/L Alkaline Phosphatase (38-126) U/L Lactate Dehydrogenase (313-618) U/L C-Reactive Protein (<1.0) mg/dL Total Protein (6.3-8.2) g/dL Albumin (3.5-5.0) g/dL Globulin (1.6-3.3) g/dL Albumin/Globulin Ratio (1.60-3.17) g/dL Procalcitonin 1.24 H (0.02-0.09) ng/mL Urine Color Urine Appearance (Clear) Urine pH (5.0-8.0) Ur Specific Wesley (1.001-1.035) Urine Protein (Negative) Urine Glucose (UA) (Negative) Urine Ketones (Negative) Urine Blood (Negative) Urine Nitrite (Negative) Urine Bilirubin (Negative) Urine Urobilinogen (<2.0) mg/dL Ur Leukocyte Esterase (Negative) Urine RBC (0-5) /hpf Urine WBC (0-5) /hpf Urine Mucus (None) /hpf 12/08/20 12/08/20 12/08/20 Range/Units 05:11 07:12 11:57 WBC (3.8-10.6) k/uL RBC (4.30-5.90) m/uL Hgb (13.0-17.5) gm/dL Hct (39.0-53.0) % MCV (80.0-100.0) fL MCH (25.0-35.0) pg MCHC (31.0-37.0) g/dL RDW (11.5-15.5) % Plt Count (150-450) k/uL Plt Count Comment MPV Immature Gran % (Auto) % Absolute Nucleated RBC (0.00-0.00) X 10*3/uL Neutrophils % % Neutrophils % (Manual) % Band Neuts % (Manual) % Lymphocytes % % Lymphocytes % (Manual) % Monocytes % % Monocytes % (Manual) % Eosinophils % % Eosinophils % (Manual) % Basophils % % Immature Gran # (0.00-0.04) X 10*3/uL Neutrophils # (1.80-7.70) X 10*3/uL Neutrophils # (Manual) (1.3-7.7) k/uL Lymphocytes # (0.90-5.00) X 10*3/uL Lymphocytes # (Manual) (1.0-4.8) k/uL Monocytes # (0.20-1.00) X 10*3/uL Monocytes # (Manual) (0-1.0) k/uL Eosinophils # (0.04-0.35) X 10*3/uL Eosinophils # (Manual) (0-0.7) k/uL Basophils # (0.00-0.10) X 10*3/uL Nucleated RBCs (0-0) /100 WBC NRBC/100 WBC Diff (0.0-0.0) /100 WBCS Manual Slide Review RBC Morphology PT (9.0-12.0) sec INR (<1.2) APTT (22.0-30.0) sec Sodium 142 (137-145) mmol/L Potassium 4.3 (3.5-5.1) mmol/L Chloride 114 H (98-107) mmol/L Carbon Dioxide 22.1 (22-30) mmol/L Anion Gap 5.90 mmol/L BUN 27.0 (9-20) mg/dL Creatinine 2.0 H (0.66-1.25) mg/dL Est GFR (CKD-EPI)AfAm 36.7 L (>60 ml/min/1.73 sqM) Est GFR (CKD-EPI)NonAf 31.7 L (>60 ml/min/1.73 sqM) BUN/Creatinine Ratio 13.50 (12.00-20.00) Ratio Glucose 130 H (74-99) mg/dL POC Glucose (mg/dL) 136 H 152 H (75-99) mg/dL POC Glu Student Success Coach Nicki Marrero Nicholle Lactic Ac Sepsis Rflx Plasma Lactic Acid Axel (0.7-2.0) mmol/L Calcium 7.9 L (8.4-10.2) mg/dL Magnesium 1.6 (1.6-2.3) mg/dL Total Bilirubin 0.5 (0.2-1.3) mg/dL AST 29 (17-59) U/L ALT 25 (4-49) U/L Alkaline Phosphatase 82 (38-126) U/L Lactate Dehydrogenase (313-618) U/L C-Reactive Protein (<1.0) mg/dL Total Protein 5.9 L (6.3-8.2) g/dL Albumin 3.60 L (3.5-5.0) g/dL Globulin 2.3 (1.6-3.3) g/dL Albumin/Globulin Ratio 1.57 L (1.60-3.17) g/dL Procalcitonin (0.02-0.09) ng/mL Urine Color Urine Appearance (Clear) Urine pH (5.0-8.0) Ur Specific Wesley (1.001-1.035) Urine Protein (Negative) Urine Glucose (UA) (Negative) Urine Ketones (Negative) Urine Blood (Negative) Urine Nitrite (Negative) Urine Bilirubin (Negative) Urine Urobilinogen (<2.0) mg/dL Ur Leukocyte Esterase (Negative) Urine RBC (0-5) /hpf Urine WBC (0-5) /hpf Urine Mucus (None) /hpf 12/08/20 12/08/20 12/08/20 Range/Units 17:31 19:41 20:46 WBC (3.8-10.6) k/uL RBC (4.30-5.90) m/uL Hgb (13.0-17.5) gm/dL Hct (39.0-53.0) % MCV (80.0-100.0) fL MCH (25.0-35.0) pg MCHC (31.0-37.0) g/dL RDW (11.5-15.5) % Plt Count (150-450) k/uL Plt Count Comment MPV Immature Gran % (Auto) % Absolute Nucleated RBC (0.00-0.00) X 10*3/uL Neutrophils % % Neutrophils % (Manual) % Band Neuts % (Manual) % Lymphocytes % % Lymphocytes % (Manual) % Monocytes % % Monocytes % (Manual) % Eosinophils % % Eosinophils % (Manual) % Basophils % % Immature Gran # (0.00-0.04) X 10*3/uL Neutrophils # (1.80-7.70) X 10*3/uL Neutrophils # (Manual) (1.3-7.7) k/uL Lymphocytes # (0.90-5.00) X 10*3/uL Lymphocytes # (Manual) (1.0-4.8) k/uL Monocytes # (0.20-1.00) X 10*3/uL Monocytes # (Manual) (0-1.0) k/uL Eosinophils # (0.04-0.35) X 10*3/uL Eosinophils # (Manual) (0-0.7) k/uL Basophils # (0.00-0.10) X 10*3/uL Nucleated RBCs (0-0) /100 WBC NRBC/100 WBC Diff (0.0-0.0) /100 WBCS Manual Slide Review RBC Morphology PT (9.0-12.0) sec INR (<1.2) APTT (22.0-30.0) sec Sodium (137-145) mmol/L Potassium (3.5-5.1) mmol/L Chloride (98-107) mmol/L Carbon Dioxide (22-30) mmol/L Anion Gap mmol/L BUN (9-20) mg/dL Creatinine (0.66-1.25) mg/dL Est GFR (CKD-EPI)AfAm (>60 ml/min/1.73 sqM) Est GFR (CKD-EPI)NonAf (>60 ml/min/1.73 sqM) BUN/Creatinine Ratio (12.00-20.00) Ratio Glucose (74-99) mg/dL POC Glucose (mg/dL) 165 H 166 H (75-99) mg/dL POC Glu Student Success Coach Nicki Marrero Melinda Lactic Ac Sepsis Rflx Plasma Lactic Acid Axel 1.1 (0.7-2.0) mmol/L Calcium (8.4-10.2) mg/dL Magnesium (1.6-2.3) mg/dL Total Bilirubin (0.2-1.3) mg/dL AST (17-59) U/L ALT (4-49) U/L Alkaline Phosphatase (38-126) U/L Lactate Dehydrogenase (313-618) U/L C-Reactive Protein (<1.0) mg/dL Total Protein (6.3-8.2) g/dL Albumin (3.5-5.0) g/dL Globulin (1.6-3.3) g/dL Albumin/Globulin Ratio (1.60-3.17) g/dL Procalcitonin (0.02-0.09) ng/mL Urine Color Urine Appearance (Clear) Urine pH (5.0-8.0) Ur Specific Wesley (1.001-1.035) Urine Protein (Negative) Urine Glucose (UA) (Negative) Urine Ketones (Negative) Urine Blood (Negative) Urine Nitrite (Negative) Urine Bilirubin (Negative) Urine Urobilinogen (<2.0) mg/dL Ur Leukocyte Esterase (Negative) Urine RBC (0-5) /hpf Urine WBC (0-5) /hpf Urine Mucus (None) /hpf 12/09/20 12/09/20 12/09/20 Range/Units 07:13 07:35 07:35 WBC 5.52 (3.8-10.6) k/uL RBC 3.54 L (4.30-5.90) m/uL Hgb 10.7 L (13.0-17.5) gm/dL Hct 32.3 L (39.0-53.0) % MCV 91.2 (80.0-100.0) fL MCH 30.2 (25.0-35.0) pg MCHC 33.1 (31.0-37.0) g/dL RDW 13.3 (11.5-15.5) % Plt Count 90 L (150-450) k/uL Plt Count Comment DECREASED A MPV 11.8 Immature Gran % (Auto) 0.7 % Absolute Nucleated RBC 0 (0.00-0.00) X 10*3/uL Neutrophils % 65.3 % Neutrophils % (Manual) % Band Neuts % (Manual) % Lymphocytes % 16.8 % Lymphocytes % (Manual) % Monocytes % 15.6 % Monocytes % (Manual) % Eosinophils % 1.6 % Eosinophils % (Manual) % Basophils % 0 % Immature Gran # 0.04 (0.00-0.04) X 10*3/uL Neutrophils # 3.60 (1.80-7.70) X 10*3/uL Neutrophils # (Manual) (1.3-7.7) k/uL Lymphocytes # 0.93 (0.90-5.00) X 10*3/uL Lymphocytes # (Manual) (1.0-4.8) k/uL Monocytes # 0.86 (0.20-1.00) X 10*3/uL Monocytes # (Manual) (0-1.0) k/uL Eosinophils # 0.09 (0.04-0.35) X 10*3/uL Eosinophils # (Manual) (0-0.7) k/uL Basophils # 0 (0.00-0.10) X 10*3/uL Nucleated RBCs (0-0) /100 WBC NRBC/100 WBC Diff 0 (0.0-0.0) /100 WBCS Manual Slide Review RBC Morphology PT (9.0-12.0) sec INR (<1.2) APTT (22.0-30.0) sec Sodium 139 (137-145) mmol/L Potassium 4.2 (3.5-5.1) mmol/L Chloride 115 H (98-107) mmol/L Carbon Dioxide 18.6 L (22-30) mmol/L Anion Gap 5.40 mmol/L BUN 22.0 (9-20) mg/dL Creatinine 2.0 H (0.66-1.25) mg/dL Est GFR (CKD-EPI)AfAm 36.7 L (>60 ml/min/1.73 sqM) Est GFR (CKD-EPI)NonAf 31.7 L (>60 ml/min/1.73 sqM) BUN/Creatinine Ratio 11.00 L (12.00-20.00) Ratio Glucose 118 H (74-99) mg/dL POC Glucose (mg/dL) 121 H (75-99) mg/dL POC Glu [employer] ID Gladys Farah Lactic Ac Sepsis Rflx Plasma Lactic Acid Axel (0.7-2.0) mmol/L Calcium 6.9 L (8.4-10.2) mg/dL Magnesium (1.6-2.3) mg/dL Total Bilirubin 1.7 H (0.2-1.3) mg/dL AST 126 H (17-59) U/L ALT 183 H (4-49) U/L Alkaline Phosphatase 143 H (38-126) U/L Lactate Dehydrogenase (313-618) U/L C-Reactive Protein (<1.0) mg/dL Total Protein 4.9 L (6.3-8.2) g/dL Albumin 3.00 L (3.5-5.0) g/dL Globulin 1.9 (1.6-3.3) g/dL Albumin/Globulin Ratio 1.58 L (1.60-3.17) g/dL Procalcitonin (0.02-0.09) ng/mL Urine Color Urine Appearance (Clear) Urine pH (5.0-8.0) Ur Specific Wesley (1.001-1.035) Urine Protein (Negative) Urine Glucose (UA) (Negative) Urine Ketones (Negative) Urine Blood (Negative) Urine Nitrite (Negative) Urine Bilirubin (Negative) Urine Urobilinogen (<2.0) mg/dL Ur Leukocyte Esterase (Negative) Urine RBC (0-5) /hpf Urine WBC (0-5) /hpf Urine Mucus (None) /hpf - EKG Data -: EKG Interpreted by Me (EKG shows sinus tachycardia 118 CO 180 QRS 98 QTc 462) Disposition Clinical Impression: Renal insufficiency, Abdominal pain, Fever of unknown origin, Gastroenteritis Disposition: ADMITTED IP TO THIS HOSP Condition: Fair Is patient prescribed a controlled substance at d/c from ED?: No
--- NOTE | 2020-12-07 03:27 | XR ---
EXAMINATION TYPE: XR chest 1V portable DATE OF EXAM: 12/07/2020 COMPARISON: 12/29/2016 HISTORY: Fever. Nausea and vomiting. TECHNIQUE: Single view FINDINGS: Heart and mediastinum are normal. Lungs are clear of infiltrate. There is no heart failure. Costophrenic angles are clear. Bony thorax is intact. Thoracic aorta is atheromatous. IMPRESSION: No active cardiopulmonary disease. No adverse change.
[2020-12-07 03:54] LABS: Partial Thromboplastin Time 22.8 sec (22.0-30.0); Prothrombin Time 10.3 sec (9.0-12.0)
[2020-12-07 04:05] LABS: Albumin 4.6 g/dL (3.5-5.0); C Reactive Protein 2.5 mg/dL (<1.0); Calcium 9.6 mg/dL (8.4-10.2); Potassium 5.4 mmol/L (3.5-5.1); Total Bilirubin 0.9 mg/dL (0.2-1.3); Total Protein 7.5 g/dL (6.3-8.2)
[2020-12-07 04:26] LABS: HCT 45.9 % (39.0-53.0); MCH 31.7 pg (25.0-35.0); MCHC 34.8 g/dL (31.0-37.0); MCV 91.1 fL (80.0-100.0); Mean Platelet Volume 8.1; Platelet Count 137 k/uL (150-450); RBC 5.04 m/uL (4.30-5.90); RDW 13.7 % (11.5-15.5); WBC 7.9 k/uL (3.8-10.6)
[2020-12-07] MEDS ORDERED: LORazepam 2 MG/ML INJ IV STA (04:40)
[2020-12-07] MEDS ORDERED: NALOXONE 0.4 MG/ML 1 ML VIAL IV PRN (04:49)
[2020-12-07] MEDS ORDERED: MORPHINE SULFATE 4 MG/ML SYRINGE IV PRN (04:49)
--- NOTE | 2020-12-07 04:55 | CT ---
EXAMINATION TYPE: CT abdomen pelvis wo con DATE OF EXAM: 12/07/2020 COMPARISON: None HISTORY: Nausea, Vomiting CT DLP: 691.80 mGycm Automated exposure control for dose reduction was used. Lung bases are clear of consolidation. There is no pleural effusion. There is minimal subsegmental at electasis at the lung bases. Heart size is normal. There is no pericardial effusion. Liver spleen stomach appear intact. Bile ducts are not dilated. There is no evidence of pancreatic ma ss. Gallbladder appears absent. There is no adrenal mass. Kidneys have normal size. There is no hydronephrosis. Ureters are not dilat ed. There is no retroperitoneal adenopathy. Bladder is almost empty. There is no free fluid in the pe lvis. There is no inguinal hernia. There is no mesenteric edema. There is no ascites or free air. There is no sign of a bowel obstructio n. Small bowel pattern is normal. Appendix is not seen. There is no sign of thickened appendix. There is a slight lumbar dextroscoliosis. There is L3 lateral subluxation of the vertebral body to th e right side. There is no lumbar compression fracture. There is narrowing of L4-3 L3-4 disc spaces wi th spurring. There is no evidence of focal bone destruction. The bony pelvis is intact. Hip joints ar e intact. There is broad-based 3 cm fat-containing umbilical hernia. There are clips at the mid sigmoid colon noted. IMPRESSION: No sign of acute abdomen and pelvis. Atherosclerotic vascular disease. No adverse change compared to old exam.
[2020-12-07 05:36] LABS: Band Neutrophils % 44 %; Eosinophils # (M) 0.24 k/uL (0-0.7); Lymphocytes # (M) 0.47 k/uL (1.0-4.8); Monocytes # (M) 0.79 k/uL (0-1.0); Neutrophils % (M) 37 %; Nucleated Red Blood Cells 0 /100 WBC (0-0)
[2020-12-07 05:37] LABS: Total Cells Counted 200
[2020-12-07] MEDS: SODIUM CHLORIDE 0.9% 1,000 ML IV SCH ×3 (07:00→21:40)
[2020-12-07] MEDS: PANTOPRAZOLE 40 MG/10 ML VIAL IV SCH (09:41)
[2020-12-07] MEDS: LORazepam 2 MG/ML INJ IV PRN ×2 (10:48→21:39)
[2020-12-07 12:17] LABS: Glucose,Whole Blood 164 mg/dL (75-99)
[2020-12-07] MEDS ORDERED: NITROGLYCERIN SL TABS 0.4 MG TAB SUBLINGUAL PRN (13:07)
[2020-12-07] MEDS ORDERED: traMADol 50 MG TAB PO PRN (13:07)
--- NOTE | 2020-12-07 13:09 | P.HPIM ---
History of Present Illness This is a pleasant 75 years old male with past medical history of diabetes mellitus, hypertension, hyperlipidemia, coronary artery disease status post stent, syncope, chronic kidney disease stage III Patient presents because of nausea vomiting and diarrhea and states she had a fever at 100.4 checked by his before coming to the hospital. Patient says that his been vomiting and having diarrhea almost 25 times per hour at a rate of once per hour. Its loose watery with no blood. He had some mild periumbilical pain is resolved now. No abdominal tenderness. He is feeling hungry and wants some liquid diet, he tolerated both surgical so far. No chest pain or dyspnea. No urinary Complains. No headache or weakness or numbness Vital signs admission showing mild tachycardia at 125, came back to 98, and 106. Present rate is 16, blood pressure 116/75, 221/69. Saturating is 95% on room air. Labs show an unremarkable CBC, INR is 1.0. Creatinine is elevated at 3.1, baseline is 1.1-1.7. Elevated lactic acid 2.1 came back to normal at 1.6. Her enzymes not elevated. EKG showing sinus tachycardia at 218, with a Q wave in V1 through V4. No significant ST-T changes. QTC is 462. Chest x-ray: No acute process CT of the abdomen and pelvis without contrast: No sign of acute abdomen and pelvis. atherosclerotic vascular disease. Surgery team were consulted from emergency room Review of Systems CONSTITUTIONAL: No fever, no malaise, no fatigue. HEENT: No recent visual problems or hearing problems. Denied any sore throat. CARDIOVASCULAR: No orthopnea, PND, no palpitations, no syncope. PULMONARY: No shortness of breath, no cough, no hemoptysis. GASTROINTESTINAL: No diarrhea, no nausea, no vomiting, no abdominal pain. Normoactive bowel sounds. NEUROLOGICAL: No headaches, no weakness, no numbness. HEMATOLOGICAL: Denies any bleeding or petechiae. GENITOURINARY: Denies any burning micturition, frequency, or urgency. MUSCULOSKELETAL/RHEUMATOLOGICAL: Denies any joint pain, swelling, or any muscle pain. ENDOCRINE: Denies any polyuria or polydipsia. 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 Bladder surgery Last Myocardial Infarction Date:: 2010 History of Any Multi-Drug Resistant Organisms: None Reported Past Surgical History: Appendectomy, Bowel Resection, Cholecystectomy, Heart Catheterization With Stent Additional Past Surgical History / Comment(s): Colon Resection Feb 2017 Past Anesthesia/Blood Transfusion Reactions: Motion Sickness Date of Last Stent Placement:: 2010 Past Psychological History: Anxiety Additional Psychological History / Comment(s): . Smoking Status: Never smoker Past Alcohol Use History: None Reported Past Drug Use History: None Reported - Past Family History Father Family Medical History: Blood Disorder Additional Family Medical History / Comment(s): lived to Mother Family Medical History: Cancer Additional Family Medical History / Comment(s): Melanoma Medications and Allergies Home Medications Medication Instructions Recorded Confirmed Type Aspirin [Adult Low Dose Aspirin EC] 81 mg PO DAILY 09/25/16 12/07/20 History Carvedilol [Coreg] 25 mg PO BID 09/25/16 12/07/20 History DULoxetine HCL [Cymbalta] 60 mg PO DAILY 09/25/16 12/07/20 History Ergocalciferol [Vitamin D2 50,000 unit PO Q14D 09/25/16 12/07/20 History (DRISDOL)] Furosemide [Lasix] 20 mg PO SUTUWETHSA 09/25/16 12/07/20 History LORazepam [Ativan] 1 mg PO TID PRN 09/25/16 12/07/20 History Liraglutide [Victoza 2-Seferino] 0.6 mg SQ DAILY 09/25/16 12/07/20 History Multivitamins, Thera [Multivitamin 1 tab PO DAILY 09/25/16 12/07/20 History (formulary)] Nitroglycerin Sl Tabs [Nitrostat] 0.4 mg SUBLINGUAL Q5M PRN 09/25/16 12/07/20 History Nortriptyline HCl [Pamelor] 50 mg PO HS 09/25/16 12/07/20 History Rosuvastatin [Crestor] 10 mg PO HS 09/25/16 12/07/20 History allopurinoL [Zyloprim] 100 mg PO DAILY 09/25/16 12/07/20 History lisinopriL [Zestril] 40 mg PO DAILY 09/25/16 12/07/20 History Furosemide [Lasix] 40 mg PO MOFR 11/11/16 12/07/20 History traMADol HCl [Ultram] 50 mg PO BID PRN 02/02/17 12/07/20 History Terazosin [Hytrin] 1 mg PO DAILY PRN 08/16/19 12/07/20 History Terazosin [Hytrin] 5 mg PO HS 08/16/19 12/07/20 History Allergies Allergy/AdvReac Type Severity Reaction Status Date / Time adhesive tape Allergy Rash/Hives Verified 12/07/20 09:19 Penicillins Allergy Itching Verified 12/07/20 09:19 NSAIDS (Non-Steroidal AdvReac Unknown UNABLE TO Verified 12/07/20 09:19 Anti-Inflamma TAKE DUE TO KIDNEY DISEASE. prednisone AdvReac DEPRESSION Verified 12/07/20 09:19 WITH LARGE DOSES Physical Exam Vitals: Vital Signs Temp Pulse Pulse Resp BP BP Pulse Ox 12/07/20 07:00 97.7 F 106 H 16 121/69 95 12/07/20 05:13 98.5 F 100 16 134/70 96 12/07/20 05:04 98 18 121/74 96 12/07/20 04:13 98.7 F 106 H 18 125/77 95 12/07/20 03:11 99.6 F 125 H 18 116/75 94 L Intake and Output 12/06/20 12/07/20 12/07/20 22:59 06:59 14:59 Other: # Voids 0 Weight 86.183 kg GENERAL: The patient is alert and oriented x3, not in any acute distress. Well developed, well nourished. HEENT: Pupils are round and equally reacting to light. EOMI. No scleral icterus. No conjunctival pallor. Normocephalic, atraumatic. No pharyngeal erythema. No thyromegaly. CARDIOVASCULAR: S1 and S2 present. No murmurs, rubs, or gallops. PULMONARY: Chest is clear to auscultation, no wheezing or crackles. ABDOMEN: Soft, nontender, nondistended, normoactive bowel sounds. No palpable organomegaly. MUSCULOSKELETAL: No joint swelling or deformity. EXTREMITIES: No cyanosis, clubbing, or pedal edema. NEUROLOGICAL: Gross neurological examination did not reveal any focal deficits. SKIN: No rashes. No petechiae Results CBC & Chem 7: 12/07/20 03:16 12/07/20 03:16 Labs: Abnormal Lab Results - Last 24 Hours (Table) 12/07/20 12/07/20 12/07/20 Range/Units 03:16 03:16 03:43 Plt Count 137 L (150-450) k/uL Lymphocytes # (Manual) 0.47 L (1.0-4.8) k/uL Potassium 5.4 H (3.5-5.1) mmol/L Carbon Dioxide 19 L (22-30) mmol/L BUN 41 H (9-20) mg/dL Creatinine 3.13 H (0.66-1.25) mg/dL Glucose 194 H (74-99) mg/dL Plasma Lactic Acid Axel 2.1 H* (0.7-2.0) mmol/L C-Reactive Protein 2.5 H (<1.0) mg/dL Thrombosis Risk Factor Assmnt - Choose All That Apply Any of the Below Risk Factors Present?: Yes Each Factor Represents 1 point: Obesity (BMI >25) Other Risk Factors: Yes Each Risk Factor Represents 3 Points: Age 75 years or older Other congenital or acquired thrombophilia - If yes, enter type in comment: No Thrombosis Risk Factor Assessment Total Risk Factor Score: 4 Thrombosis Risk Factor Assessment Level: Moderate Risk Assessment and Plan Assessment: acute gastroenteritis Acute kidney injury Diabetes mellitus Attention Hyperlipidemia Chronic kidney disease, stage III History of coronary artery disease status post stenting history of syncope History of colon resection secondary to perforation by Dr. Anaya Plan: This is a pleasant 75 years old male who presents with nausea vomiting and diarrhea. And SAMIR Continue with IV hydration Monitor Creatinine.if call nephrology consult Hold lisinopril Resume clear liquid diet Check a bladder scan Labs and medication were reviewed.. Continue same treatment. Continue with symptomatic treatment. Resume home medication. Monitor lytes and vitals. DVT and GI prophylaxis. Further recommendations depends on the clinical course of the patient DVT prophylaxis: Subcutaneous heparin GI Prophylaxis: Ppi PT/OT: Pending Prognosis is guarded
--- NOTE | 2020-12-07 14:12 | P.NPCON ---
History of Present Illness - Reason for Consult acute renal failure - Chief Complaint Chronic kidney disease with acute kidney injury - History of Present Illness This is a 75-year-old male known to me with chronic kidney disease, with biopsy- proven FSGS. He came in because of nausea vomiting diarrhea for the last 24 hours which was severe. He has been admitted about 11 months ago with a similar problems. His baseline creatinine Today is between 1.1-2. The cause of this flexion is not very clear. This has been noticed for some time. He has proteinuria of about 1.5 g as of 09/05/2019 the most recent one available here. After admission with IV fluids she is feeling much better he is able to eat no more diarrhea. No abdominal pain no fever chills no nausea vomiting currently. 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 Bladder surgery Last Myocardial Infarction Date:: 2010 History of Any Multi-Drug Resistant Organisms: None Reported Past Surgical History: Appendectomy, Bowel Resection, Cholecystectomy, Heart Ca theterization With Stent Additional Past Surgical History / Comment(s): Colon Resection Feb 2017 Past Anesthesia/Blood Transfusion Reactions: Motion Sickness Date of Last Stent Placement:: 2010 Past Psychological History: Anxiety Additional Psychological History / Comment(s): . Smoking Status: Never smoker Past Alcohol Use History: None Reported Past Drug Use History: None Reported - Past Family History Father Family Medical History: Blood Disorder Additional Family Medical History / Comment(s): lived to Mother Family Medical History: Cancer Additional Family Medical History / Comment(s): Melanoma Medications and Allergies Home Medications Medication Instructions Recorded Confirmed Type Aspirin [Adult Low Dose Aspirin EC] 81 mg PO DAILY 09/25/16 12/07/20 History Carvedilol [Coreg] 25 mg PO BID 09/25/16 12/07/20 History DULoxetine HCL [Cymbalta] 60 mg PO DAILY 09/25/16 12/07/20 History Ergocalciferol [Vitamin D2 50,000 unit PO Q14D 09/25/16 12/07/20 History (DRISDOL)] Furosemide [Lasix] 20 mg PO SUTUWETHSA 09/25/16 12/07/20 History LORazepam [Ativan] 1 mg PO TID PRN 09/25/16 12/07/20 History Liraglutide [Victoza 2-Seferino] 0.6 mg SQ DAILY 09/25/16 12/07/20 History Multivitamins, Thera [Multivitamin 1 tab PO DAILY 09/25/16 12/07/20 History (formulary)] Nitroglycerin Sl Tabs [Nitrostat] 0.4 mg SUBLINGUAL Q5M PRN 09/25/16 12/07/20 History Nortriptyline HCl [Pamelor] 50 mg PO HS 09/25/16 12/07/20 History Rosuvastatin [Crestor] 10 mg PO HS 09/25/16 12/07/20 History allopurinoL [Zyloprim] 100 mg PO DAILY 09/25/16 12/07/20 History lisinopriL [Zestril] 40 mg PO DAILY 09/25/16 12/07/20 History Furosemide [Lasix] 40 mg PO MOFR 11/11/16 12/07/20 History traMADol HCl [Ultram] 50 mg PO BID PRN 02/02/17 12/07/20 History Terazosin [Hytrin] 1 mg PO DAILY PRN 08/16/19 12/07/20 History Terazosin [Hytrin] 5 mg PO HS 08/16/19 12/07/20 History Allergies Allergy/AdvReac Type Severity Reaction Status Date / Time adhesive tape Allergy Rash/Hives Verified 12/07/20 09:19 Penicillins Allergy Itching Verified 12/07/20 09:19 NSAIDS (Non-Steroidal AdvReac Unknown UNABLE TO Verified 12/07/20 09:19 Anti-Inflamma TAKE DUE TO KIDNEY DISEASE. prednisone AdvReac DEPRESSION Verified 12/07/20 09:19 WITH LARGE DOSES Physical Exam Vitals: Vital Signs Temp Pulse Pulse Resp BP BP Pulse Ox 12/07/20 07:00 97.7 F 106 H 16 121/69 95 12/07/20 05:13 98.5 F 100 16 134/70 96 12/07/20 05:04 98 18 121/74 96 12/07/20 04:13 98.7 F 106 H 18 125/77 95 12/07/20 03:11 99.6 F 125 H 18 116/75 94 L Intake and Output 12/06/20 12/07/20 12/07/20 22:59 06:59 14:59 Output Total 50 Balance -50 Output: Post Void Residual 50 Other: # Voids 0 Weight 86.183 kg Examination awake alert oriented comfortable HEENT exam no JVP neck is supple no facial asymmetry Lungs clear to auscultation good air entry bilaterally Heart sounds unremarkable for any murmur rub gallop Abdomen soft nontender slightly distended Extremity exam was no edema Neurologically awake alert oriented Results - Lab Results Most recent lab results Calcium 9.6 mg/dL (8.4-10.2) 12/07/20 03:16 Magnesium 2.0 mg/dL (1.6-2.3) 12/07/20 03:16 12/07/20 03:16 12/07/20 03:16 Assessment and Plan Assessment: Impression 1. Acute kidney injury from volume depletion from severe vomiting and nausea diarrhea. Creatinine is up to 3.13. 2. Mild hyperkalemia secondary acute kidney injury 3. Mild degree of non-gap acidosis with bicarb of 19 and gap of 13 from diarrhea and acute kidney injury 4. Gastroenteritis resolved 5. Biopsy-proven chronic kidney disease secondary to FSGS on 0.5 g of proteinuria baseline creatinine is 1.0-2 fluctuation on clear from what cause. Recommendation. 1. Continue IV fluids. 2. Maintain all home medications 3. Monitor labs. 4. Intermittent discharged as soon as his nausea vomiting is controlled with seems to be occurring already. Thank you for this consultation we will continue to follow
[2020-12-07 14:15] LABS: Appearance,Urine Clear (Clear); Bilirubin,Urine Negative (Negative); Blood,Urine Trace (Negative); Color,Urine Light Yellow; Glucose,Urine (UA) 1+ (Negative); Ketones,Urine Negative (Negative); Leukocyte Esterase,Urine Negative (Negative); Mucus,Urine Rare /hpf; Nitrite,Urine Negative (Negative); Protein,Urine 1+ (Negative); RBC,Urine <1 /hpf (0-5); Urobilinogen,Urine <2.0 mg/dL (<2.0); WBC,Urine <1 /hpf (0-5)
[2020-12-07 17:21] LABS: Glucose,Whole Blood 140 mg/dL (75-99)
[2020-12-07] MEDS: INSULIN ASPART (NovoLOG) 100 UNIT/ML VIAL SQ SCH ×2 (17:45→21:24)
[2020-12-07] MEDS: carvediloL 12.5 MG TAB PO SCH (17:45)
--- NOTE | 2020-12-07 20:23 | P.GSCN ---
History of Present Illness Consult date: 12/07/20 History of present illness: CHIEF COMPLAINT: Abdominal pain. HISTORY OF PRESENT ILLNESS: The patient is a 75-year-old male with past gastritis last upper endoscopy August 2019 including open low anterior resection in 2017 who now presents with abdominal pain. He has past history of emphysematous gastritis. He had acute epigastric abdominal pain in the last 3 days. Since admission, his abdominal pain has improved. He is tolerating clear liquid diet. His is at bedside and provides additional history. No reports of blood in stools or hematemesis. PAST MEDICAL HISTORY: See list and reviewed PAST SURGICAL HISTORY: See list and reviewed MEDICATIONS: See list and reviewed ALLERGIES: See list and reviewed SOCIAL HISTORY: See list and reviewed FAMILY HISTORY: See list and reviewed REVIEW OF ORGAN SYSTEMS: CONSTITUTIONAL: No fevers or chills. EYES: Denies any trouble with vision. HEENT: No difficulties with hearing. No nosebleeds. No difficulty swallowing. RESPIRATORY: Denies pneumonia. Denies any troubles with breathing or dyspnea on exertion. CARDIOVASCULAR: Has hypertensive heart disease with congestive heart failure. Has hyperlipidemia. Has coronary artery disease. Past myocardial infarction. Has ischemia cardiomyopathy GASTROINTESTINAL: Denies fatty food intolerance. Denies change in bowel habits and gas bloat. Past bowel resection 2017. 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 Has focal segmental glomerular sclerosis, stage III kidney disease. NEUROLOGICAL: Denies any numbness or tingling along the distal extremities. No seizure disorders or headaches. Has history of strokes. MUSCULOSKELETAL: Has back pain, stiffness or joint arthritis. History of gout. Has fibromyalgia. SKIN: No current skin cancer. No rash. PSYCHIATRIC: Denies suicidal thoughts. Has depressive disorder. Has anxiety. ENDOCRINE: Denies current thyroid disorders. Has diabetes type 2, [id number]. HEME/LYMPHATIC: Denies any lumps and bumps around the neck. No recent deep venous thrombosis. ALLERGY/IMMUNOLOGY: No immunoglobulin therapy. No immune deficiencies. BREAST: Denies current breast lumps, pain or nipple discharge. PHYSICAL EXAM: VITALS: Reviewed CONSTITUTIONAL: Well developed and in no acute distress. EYES: Conjuctivae without sclera icterus. Extraocular movements grossly intact. HEAD, EARS, NOSE, THROAT: Moist buccal mucosa. Head is atraumatic, normocephalic. Hears conversational speech. No nasal drainage. NECK: No JV distention. No gross thyroidomegaly. RESPIRATORY: Non-labored respirations and equal bilateral excursions. No gross wheezes. CARDIOVASCULAR: Tachycardic. ABDOMEN: No peritonitis. LYMPH: No gross neck lymphadenopathy. MUSCULOSKELETAL: No clubbing cyanosis. SKIN: Warm and well perfused with good skin turgor. NEUROLOGIC: Cranial nerves II through XII grossly intact. Sensation upper and extremities intact. No focal or lateralizing signs. PSYCH: Appropriate affect. Alert and oriented to person, place and time. Displays appropriate insight. CLINCAL LABS: Reviewed. WBC normal 7.9. Hemoglobin normal 16.0. Platelets low 137 with thrombocytopenia. Potassium elevated at 5.4. Creatinine elevated at 3.13. Lactic acid is elevated. C-reactive protein elevated at 2.5. EKG: Reviewed with anterior infarct age undetermined. Sinus tachycardia present. IMAGING: Independently reviewed CT of the abdomen and pelvis without contrast demonstrates dilated stomach. Small bowel within normal limits. No signs of bowel obstruction. No free air. Recurrent umbilical fat-containing hernia. Gallbladder absent. Bilateral renal disease. This is my independent interpretation. RADIOLOGY: Report reviewed CT of abdomen and pelvis with no acute abdomen or findings. RECORDS: previous old records reviewed August 2019 with antral gastritis james ntified. Lower anterior resection in 2017 for diverticulitis reviewed including hernia repair. ASSESSMENT: 1. Abdominal pain 2. Thrombocytopenia 3. Ischemic cardiomyopathy 4. Stage III chronic renal disease 5. Diabetes type 2, diabetic nephropathy 6. Diabetes type 2, diabetic neuropathy 7. Lactic acidosis on admission PLAN: 1. Recommend supportive management with IV fluid hydration 2. Correction of hyperkalemia 3. May need upper endoscopy with history of gastritis. Thank you for this kind consultation. 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 Bladder surgery Last Myocardial Infarction Date:: 2010 History of Any Multi-Drug Resistant Organisms: None Reported Past Surgical History: Appendectomy, Bowel Resection, Cholecystectomy, Heart Catheterization With Stent Additional Past Surgical History / Comment(s): Colon Resection Feb 2017 Past Anesthesia/Blood Transfusion Reactions: Motion Sickness Date of Last Stent Placement:: 2010 Past Psychological History: Anxiety Additional Psychological History / Comment(s): . Smoking Status: Never smoker Past Alcohol Use History: None Reported Past Drug Use History: None Reported - Past Family History Father Family Medical History: Blood Disorder Additional Family Medical History / Comment(s): lived to Mother Family Medical History: Cancer Additional Family Medical History / Comment(s): Melanoma Medications and Allergies Home Medications Medication Instructions Recorded Confirmed Type Aspirin [Adult Low Dose Aspirin EC] 81 mg PO DAILY 09/25/16 12/07/20 History Carvedilol [Coreg] 25 mg PO BID 09/25/16 12/07/20 History DULoxetine HCL [Cymbalta] 60 mg PO DAILY 09/25/16 12/07/20 History Ergocalciferol [Vitamin D2 50,000 unit PO Q14D 09/25/16 12/07/20 History (DRISDOL)] Furosemide [Lasix] 20 mg PO SUTUWETHSA 09/25/16 12/07/20 History LORazepam [Ativan] 1 mg PO TID PRN 09/25/16 12/07/20 History Liraglutide [Victoza 2-Seferino] 0.6 mg SQ DAILY 09/25/16 12/07/20 History Multivitamins, Thera [Multivitamin 1 tab PO DAILY 09/25/16 12/07/20 History (formulary)] Nitroglycerin Sl Tabs [Nitrostat] 0.4 mg SUBLINGUAL Q5M PRN 09/25/16 12/07/20 History Nortriptyline HCl [Pamelor] 50 mg PO HS 09/25/16 12/07/20 History Rosuvastatin [Crestor] 10 mg PO HS 09/25/16 12/07/20 History allopurinoL [Zyloprim] 100 mg PO DAILY 09/25/16 12/07/20 History lisinopriL [Zestril] 40 mg PO DAILY 09/25/16 12/07/20 History Furosemide [Lasix] 40 mg PO MOFR 11/11/16 12/07/20 History traMADol HCl [Ultram] 50 mg PO BID PRN 02/02/17 12/07/20 History Terazosin [Hytrin] 1 mg PO DAILY PRN 08/16/19 12/07/20 History Terazosin [Hytrin] 5 mg PO HS 08/16/19 12/07/20 History Allergies Allergy/AdvReac Type Severity Reaction Status Date / Time adhesive tape Allergy Rash/Hives Verified 12/07/20 09:19 Penicillins Allergy Itching Verified 12/07/20 09:19 NSAIDS (Non-Steroidal AdvReac Unknown UNABLE TO Verified 12/07/20 09:19 Anti-Inflamma TAKE DUE TO KIDNEY DISEASE. prednisone AdvReac DEPRESSION Verified 12/07/20 09:19 WITH LARGE DOSES Surgical - Exam Vital Signs Temp Pulse Resp BP Pulse Ox 99.6 F 125 H 18 116/75 94 L 12/07/20 03:11 12/07/20 03:11 12/07/20 03:11 12/07/20 03:11 12/07/20 03:11 Results - Labs 12/07/20 03:16 12/07/20 03:16 Abnormal Lab Results - Last 24 Hours (Table) 12/07/20 12/07/20 12/07/20 Range/Units 03:16 03:16 03:43 Plt Count 137 L (150-450) k/uL Lymphocytes # (Manual) 0.47 L (1.0-4.8) k/uL Potassium 5.4 H (3.5-5.1) mmol/L Carbon Dioxide 19 L (22-30) mmol/L BUN 41 H (9-20) mg/dL Creatinine 3.13 H (0.66-1.25) mg/dL Glucose 194 H (74-99) mg/dL Plasma Lactic Acid Axel 2.1 H* (0.7-2.0) mmol/L C-Reactive Protein 2.5 H (<1.0) mg/dL Diabetes panel 12/07/20 Range/Units 03:16 Sodium 137 (137-145) mmol/L Potassium 5.4 H (3.5-5.1) mmol/L Chloride 105 (98-107) mmol/L Carbon Dioxide 19 L (22-30) mmol/L BUN 41 H (9-20) mg/dL Creatinine 3.13 H (0.66-1.25) mg/dL Glucose 194 H (74-99) mg/dL Calcium 9.6 (8.4-10.2) mg/dL AST 30 (17-59) U/L ALT 29 (4-49) U/L Alkaline Phosphatase 102 (38-126) U/L Total Protein 7.5 (6.3-8.2) g/dL Albumin 4.6 (3.5-5.0) g/dL Calcium panel 12/07/20 Range/Units 03:16 Calcium 9.6 (8.4-10.2) mg/dL Albumin 4.6 (3.5-5.0) g/dL Pituitary panel 12/07/20 Range/Units 03:16 Sodium 137 (137-145) mmol/L Potassium 5.4 H (3.5-5.1) mmol/L Chloride 105 (98-107) mmol/L Carbon Dioxide 19 L (22-30) mmol/L BUN 41 H (9-20) mg/dL Creatinine 3.13 H (0.66-1.25) mg/dL Glucose 194 H (74-99) mg/dL Calcium 9.6 (8.4-10.2) mg/dL Adrenal panel 12/07/20 Range/Units 03:16 Sodium 137 (137-145) mmol/L Potassium 5.4 H (3.5-5.1) mmol/L Chloride 105 (98-107) mmol/L Carbon Dioxide 19 L (22-30) mmol/L BUN 41 H (9-20) mg/dL Creatinine 3.13 H (0.66-1.25) mg/dL Glucose 194 H (74-99) mg/dL Calcium 9.6 (8.4-10.2) mg/dL Total Bilirubin 0.9 (0.2-1.3) mg/dL AST 30 (17-59) U/L ALT 29 (4-49) U/L Alkaline Phosphatase 102 (38-126) U/L Total Protein 7.5 (6.3-8.2) g/dL Albumin 4.6 (3.5-5.0) g/dL Assessment and Plan (1) Hyperkalemia Current Visit: Yes Status: Acute Code(s): E87.5 - HYPERKALEMIA SNOMED Code(s): 15724825 (2) Gastroenteritis Current Visit: Yes Status: Acute Code(s): K52.9 - NONINFECTIVE GASTR OENTERITIS AND COLITIS, UNSPECIFIED SNOMED Code(s): 48849272 (3) Chronic kidney disease, stage 3a Current Visit: No Status: Acute Code(s): N18.3 - CHRONIC KIDNEY DISEASE, STAGE 3 (MODERATE) * DO NOT USE * SNOMED Code(s): 078144069 (4) Dehydration Current Visit: No Status: Acute Code(s): E86.0 - DEHYDRATION SNOMED Code(s): 79471209 (5) Gastritis Current Visit: No Status: Acute Code(s): K29.70 - GASTRITIS, UNSPECIFIED, WITHOUT BLEEDING SNOMED Code(s): 9804896
[2020-12-07 21:21] LABS: Glucose,Whole Blood 125 mg/dL (75-99)
[2020-12-07] MEDS: ONDANSETRON 4 MG/2 ML VIAL IVP PRN (21:38)
[2020-12-07] MEDS: HEPARIN SODIUM,PORCINE/PF 5,000 UNIT/0.5 ML SYRINGE SQ SCH (21:39)
[2020-12-07] MEDS: ATORVASTATIN 20 MG TAB PO SCH (21:40)
[2020-12-08] MEDS: SODIUM CHLORIDE 0.9% 1,000 ML IV SCH ×3 (04:50→21:46)
[2020-12-08 07:13] LABS: Glucose,Whole Blood 136 mg/dL (75-99)
[2020-12-08] MEDS: PANTOPRAZOLE 40 MG/10 ML VIAL IV SCH (08:15)
[2020-12-08] MEDS: allopurinoL 100 MG TAB PO SCH (08:15)
[2020-12-08] MEDS: ONDANSETRON 4 MG/2 ML VIAL IVP PRN (08:16)
[2020-12-08] MEDS: LORazepam 2 MG/ML INJ IV PRN ×3 (08:16→21:52)
[2020-12-08] MEDS: ASPIRIN 81 MG PO SCH (08:17)
[2020-12-08] MEDS: HEPARIN SODIUM,PORCINE/PF 5,000 UNIT/0.5 ML SYRINGE SQ SCH ×2 (08:17→21:47)
[2020-12-08] MEDS: carvediloL 12.5 MG TAB PO SCH ×2 (08:17→17:46)
[2020-12-08] MEDS: DULoxetine HCL 60 MG CAPSULE.DR PO SCH (08:17)
[2020-12-08] MEDS: INSULIN ASPART (NovoLOG) 100 UNIT/ML VIAL SQ SCH ×4 (08:18→21:47)
[2020-12-08 09:22] LABS: HCT 39.4 % (39.6-50.0); HGB 13.1 g/dL (13.0-17.0); MCH 31.1 pg (27.0-32.0); MCHC 33.2 g/dL (32.0-37.0); MCV 93.6 fL (80.0-97.0); Mean Platelet Volume 11.9 fL (9.5-12.2); Platelet Count 122 X 10*3/uL (140-440); RBC 4.21 X 10*6/uL (4.40-5.60); RDW 13.2 % (11.5-14.5)
[2020-12-08 10:41] LABS: Basophils # (A) 0.01 X 10*3/uL (0.00-0.10); Basophils % (A) 0.2 %; Eosinophils # (A) 0.12 X 10*3/uL (0.04-0.35); Eosinophils % (A) 2.4 %; Lymphocytes # (A) 0.86 X 10*3/uL (0.90-5.00); Lymphocytes % (A) 17.6 %; Monocytes # (A) 0.75 X 10*3/uL (0.20-1.00); Monocytes % (A) 15.3 %; Neutrophils # (A) 3.15 X 10*3/uL (1.80-7.70); Neutrophils % (A) 64.3 %
[2020-12-08 11:49] LABS: African American GFR (CKD) 36.7 (60.0-200.0); Albumin 3.6 g/dL (3.80-4.90); Albumin/Globulin Ratio 1.57 (1.60-3.17); Anion Gap 5.9 mmol/L (4.00-12.00); BUN/Creat Ratio 13.5 Ratio (12.00-20.00); Calcium 7.9 mg/dL (8.7-10.3); Carbon Dioxide 22.1 mmol/L (21.6-31.8); Globulin 2.3 g/dL (1.6-3.3); Magnesium 1.6 mg/dL (1.5-2.4); Non-African American GFR(CKD) 31.7 (60.0-200.0); Potassium 4.3 mmol/L (3.5-5.5); Total Bilirubin 0.5 mg/dL (0.2-1.2); Total Protein 5.9 g/dL (6.2-8.2)
[2020-12-08 11:58] LABS: Glucose,Whole Blood 152 mg/dL (75-99)
--- NOTE | 2020-12-08 15:02 | P.PN ---
Subjective Progress Note Date: 12/08/20 CHIEF COMPLAINT: Abdominal pain HISTORY OF PRESENT ILLNESS: The patient is a 75-year-old male with past g astritis last upper endoscopy August 2019 including open low anterior resection in 2016 who now presents with abdominal pain. He has past history of emphysematous gastritis. Patient complaining of epigastric pain. He's had no further episodes of vomiting since Monday. His bowel movements are becoming more formed. Computed tomography scan abdomen and pelvis was negative. Afebrile. WBC 4.9 hemoglobin 13.1 platelets 122 creatinine 2.0 PHYSICAL EXAM: VITAL SIGNS: Reviewed. GENERAL: Well-developed in no acute distress. HEENT: No sclera icterus. Extraocular movements grossly intact. Moist buccal mucosa. Head is atraumatic, normocephalic. ABDOMEN: Soft. Nondistended. Nontender. NEUROLOGIC: Alert and oriented. Cranial nerves II through XII grossly intact. ASSESSMENT: 1. Abdominal pain with nausea, vomiting and diarrhea. history of emphysematous gastritis 2. Thrombocytopenia 3. Ischemic cardiomyopathy 4. Stage III chronic renal disease 5. Diabetes type 2, diabetic nephropathy 6. Lactic acidosis on admission PLAN: -Patient scheduled for EGD with Dr. nieves on , 12/10/2020 -Continue clear liquid diet -Continue supportive care -Continue Protonix Physician Grounds Person note has been reviewed by physician. Signing provider agrees with the documented findings, assessment, and plan of care. Objective - Vital Signs Vital signs: Vital Signs Temp 98.1 F 12/08/20 14:50 Pulse 101 H 12/08/20 14:50 Resp 18 12/08/20 14:50 BP 122/62 12/08/20 14:50 Pulse Ox 96 12/08/20 14:50 Intake & Output 12/07/20 12/08/20 12/08/20 18:59 06:59 18:59 Intake Total 1040 1560 Output Total 50 Balance 990 1560 Intake: Intake, IV Titration 1040 1560 Amount Sodium Chloride 0.9% 1, 1040 1560 000 ml @ 130 mls/hr IV . Q7H42M [facility] Rx#:[id number] Output: Post Void Residual 50 Other: # Voids 2 3 1 - Labs CBC & Chem 7: 12/08/20 05:11 12/08/20 05:11 Labs: Abnormal Lab Results - Last 24 Hours (Table) 12/07/20 12/07/20 12/08/20 Range/Units 17:20 21:20 05:11 RBC 4.21 L (4.40-5.60) X 10*6/uL Hct 39.4 L (39.6-50.0) % Plt Count 122 L (140-440) X 10*3/uL Plt Count Comment DECREASED A Lymphocytes # 0.86 L (0.90-5.00) X 10*3/uL Chloride (96-109) mmol/L Creatinine (0.6-1.5) mg/dL Est GFR (CKD-EPI)AfAm (60.0-200.0) Est GFR (CKD-EPI)NonAf (60.0-200.0) Glucose (70-110) mg/dL POC Glucose (mg/dL) 140 H 125 H (75-99) mg/dL Calcium (8.7-10.3) mg/dL Total Protein (6.2-8.2) g/dL Albumin (3.80-4.90) g/dL Albumin/Globulin Ratio (1.60-3.17) g/dL 12/08/20 12/08/20 12/08/20 Range/Units 05:11 07:12 11:57 RBC (4.40-5.60) X 10*6/uL Hct (39.6-50.0) % Plt Count (140-440) X 10*3/uL Plt Count Comment Lymphocytes # (0.90-5.00) X 10*3/uL Chloride 114 H (96-109) mmol/L Creatinine 2.0 H (0.6-1.5) mg/dL Est GFR (CKD-EPI)AfAm 36.7 L (60.0-200.0) Est GFR (CKD-EPI)NonAf 31.7 L (60.0-200.0) Glucose 130 H (70-110) mg/dL POC Glucose (mg/dL) 136 H 152 H (75-99) mg/dL Calcium 7.9 L (8.7-10.3) mg/dL Total Protein 5.9 L (6.2-8.2) g/dL Albumin 3.60 L (3.80-4.90) g/dL Albumin/Globulin Ratio 1.57 L (1.60-3.17) g/dL Microbiology - Last 24 Hours (Table) 12/07/20 03:30 Blood Culture - Preliminary Blood No Growth after 24 hours
[2020-12-08 17:32] LABS: Glucose,Whole Blood 165 mg/dL (75-99)
[2020-12-08] MEDS ORDERED: TRIMETHOBENZAMIDE 100 MG/ML 2 ML VIAL IM PRN (17:38)
--- NOTE | 2020-12-08 17:56 | XR ---
EXAM: Abdomen radiograph. HISTORY: Pain. TECHNIQUE: Supine AP view. COMPARISON: CT 12/07/2020. FINDINGS: There is diffuse moderate colonic gas with a nonobstructive pattern. There are no pathologic calcific ations. No acute osseous abnormality seen. IMPRESSION: Colonic gas with nonobstructive pattern.
[2020-12-08] MEDS ORDERED: LEVOFLOXACIN 500MG-D5W PMX 500 MG in DEXTROSE/WATER 1 100ML.BAG IVPB SCH (18:00)
[2020-12-08] MEDS ORDERED: ACETAMINOPHEN TAB 325 MG TAB PO PRN (18:00)
[2020-12-08] MEDS: metroNIDAZOLE-NS PMX 500 MG in SALINE 1 100ML.BAG IVPB SCH (18:08)
--- NOTE | 2020-12-08 18:29 | PN ---
PROGRESS NOTE Patient is seen for followup for acute kidney injury on top of chronic kidney disease. The patient was admitted with nausea, vomiting and diarrhea. He is currently receiving IV fluids. Serum creatinine is improved to 2 from 3.1 on initial admission. His baseline creatinine appears to be around 1.1, although we have a creatinine of 1.7 from 08/28/2019. Overall, patient is feeling slightly better. The nausea and vomiting have improved to some degree. On examination today, blood pressure 122/62, heart rate 101 per minute. He is afebrile. EXAMINATION OF THE HEART: S1 and S2. EXAMINATION OF LUNGS: Bilateral breath sounds are heard. ABDOMEN: Soft, nontender. LOWER EXTREMITIES: Examination of lower extremities shows no evidence of edema. PURCHASING EXPEDITOR EXAM: Grossly intact. Labs show hemoglobin 13.1 g/dL, sodium 142, potassium 4.3, creatinine 2.0. ASSESSMENT: 1. Acute kidney injury, prerenal, currently improving. 2. Nausea, vomiting and diarrhea, possibly related to some kind of food allergy, possibly histamine-related foods. The patient has had previous evaluation at [facility]. 3. Chronic kidney disease, NKF stage III, secondary to biopsy-proven FSGS. 4. Mild non-gap metabolic acidosis from diarrhea and acute kidney injury. PLAN: Continue IV fluids. Symptomatic treatment. Repeat labs in a.m. MMODL / IJN: [id number] /
--- NOTE | 2020-12-08 19:27 | P.PN ---
Subjective This is a pleasant 75 years old male with past medical history of diabetes mellitus, hypertension, hyperlipidemia, coronary artery disease status post stent, syncope, chronic kidney disease stage III Patient presents because of nausea vomiting and diarrhea and states she had a fever at 100.4 checked by his before coming to the hospital. Patient says that his been vomiting and having diarrhea almost 25 times per hour at a rate of once per hour. Its loose watery with no blood. He had some mild periumbilical pain is resolved now. No abdominal tenderness. He is feeling hungry and wants some liquid diet, he tolerated both surgical so far. No chest pain or dyspnea. No urinary Complains. No headache or weakness or numbness Vital signs admission showing mild tachycardia at 125, came back to 98, and 106. Present rate is 16, blood pressure 116/75, 221/69. Saturating is 95% on room air. Labs show an unremarkable CBC, INR is 1.0. Creatinine is elevated at 3.1, baseline is 1.1-1.7. Elevated lactic acid 2.1 came back to normal at 1.6. Her enzymes not elevated. EKG showing sinus tachycardia at 218, with a Q wave in V1 through V4. No significant ST-T changes. QTC is 462. Chest x-ray: No acute process CT of the abdomen and pelvis without contrast: No sign of acute abdomen and pelvis. atherosclerotic vascular disease. Surgery team were consulted from emergency room 12/08/2020 pt is still with nausea , no vomiting , has some abd cramps and gas in his belly with small amount soft diarreha every 15 min, vitals stable but he developed fever today at 102 Labs look stable. With no leukocytosis. Supportcalcitonin is elevated at 1.4. KUB showing nonobstructive gas pattern. Creatinine is improving down to 2.0. He remains on normal saline Today we added antibiotics with Levaquin and Flagyl. And sent for repeat blood culture Objective - Vital Signs Vital signs: Vital Signs Temp 98.5 F 12/08/20 07:00 Pulse 103 H 12/08/20 07:00 Resp 18 12/08/20 14:00 BP 115/64 12/08/20 07:00 Pulse Ox 97 12/08/20 07:00 Intake & Output 12/07/20 12/08/20 12/08/20 18:59 06:59 18:59 Intake Total 1040 1560 Output Total 50 Balance 990 1560 Intake: Intake, IV Titration 1040 1560 Amount Sodium Chloride 0.9% 1, 1040 1560 000 ml @ 130 mls/hr IV . Q7H42M [facility] Rx#:[id number] Output: Post Void Residual 50 Other: # Voids 2 3 1 - Exam GENERAL: The patient is alert and oriented x3, not in any acute distress. Well developed, well nourished. HEENT: Pupils are round and equally reacting to light. EOMI. No scleral icterus. No conjunctival pallor. Normocephalic, atraumatic. No pharyngeal erythema. No thyromegaly. CARDIOVASCULAR: S1 and S2 present. No murmurs, rubs, or gallops. PULMONARY: Chest is clear to auscultation, no wheezing or crackles. -ABDOMEN: Soft, mild periumbilical tenderness, no rebound tenderness nontender, nondistended, normoactive bowel sounds. No palpable organomegaly. MUSCULOSKELETAL: No joint swelling or deformity. EXTREMITIES: No cyanosis, clubbing, or pedal edema. NEUROLOGICAL: Gross neurological examination did not reveal any focal deficits. SKIN: No rashes. no petechiae. - Labs CBC & Chem 7: 12/08/20 05:11 12/08/20 05:11 Labs: Abnormal Lab Results - Last 24 Hours (Table) 12/07/20 12/07/20 12/08/20 Range/Units 17:20 21:20 05:11 RBC 4.21 L (4.40-5.60) X 10*6/uL Hct 39.4 L (39.6-50.0) % Plt Count 122 L (140-440) X 10*3/uL Plt Count Comment DECREASED A Lymphocytes # 0.86 L (0.90-5.00) X 10*3/uL Chloride (96-109) mmol/L Creatinine (0.6-1.5) mg/dL Est GFR (CKD-EPI)AfAm (60.0-200.0) Est GFR (CKD-EPI)NonAf (60.0-200.0) Glucose (70-110) mg/dL POC Glucose (mg/dL) 140 H 125 H (75-99) mg/dL Calcium (8.7-10.3) mg/dL Total Protein (6.2-8.2) g/dL Albumin (3.80-4.90) g/dL Albumin/Globulin Ratio (1.60-3.17) g/dL 12/08/20 12/08/20 12/08/20 Range/Units 05:11 07:12 11:57 RBC (4.40-5.60) X 10*6/uL Hct (39.6-50.0) % Plt Count (140-440) X 10*3/uL Plt Count Comment Lymphocytes # (0.90-5.00) X 10*3/uL Chloride 114 H (96-109) mmol/L Creatinine 2.0 H (0.6-1.5) mg/dL Est GFR (CKD-EPI)AfAm 36.7 L (60.0-200.0) Est GFR (CKD-EPI)NonAf 31.7 L (60.0-200.0) Glucose 130 H (70-110) mg/dL POC Glucose (mg/dL) 136 H 152 H (75-99) mg/dL Calcium 7.9 L (8.7-10.3) mg/dL Total Protein 5.9 L (6.2-8.2) g/dL Albumin 3.60 L (3.80-4.90) g/dL Albumin/Globulin Ratio 1.57 L (1.60-3.17) g/dL Microbiology - Last 24 Hours (Table) 12/07/20 03:30 Blood Culture - Preliminary Blood No Growth after 24 hours Assessment and Plan Assessment: acute gastroenteritis, most likely to gram-negative bacteria versus anaerobes Acute kidney injury, improving Diabetes mellitus Attention Hyperlipidemia Chronic kidney disease, stage III History of coronary artery disease status post stenting history of syncope History of colon resection secondary to perforation by Dr. Anaya Plan: This is a pleasant 75 years old male who presents with nausea vomiting and diarrhea. And SAMIR Continue with IV hydration. Start Levaquin and Flagyl. Follow-up blood culture Monitor Creatinine.if follow-up with nephrology consult Hold lisinopril Resume clear liquid diet Check a bladder scan Labs and medication were reviewed.. Continue same treatment. Continue with symptomatic treatment. Resume home medication. Monitor lytes and vitals. DVT and GI prophylaxis. Further recommendations depends on the clinical course of the patient DVT prophylaxis: Subcutaneous heparin GI Prophylaxis: Ppi PT/OT: Pending Prognosis is guarded
[2020-12-08 20:47] LABS: Glucose,Whole Blood 166 mg/dL (75-99)
[2020-12-08] MEDS: ATORVASTATIN 20 MG TAB PO SCH (21:47)
[2020-12-09] MEDS: metroNIDAZOLE-NS PMX 500 MG in SALINE 1 100ML.BAG IVPB SCH ×3 (00:56→16:37)
[2020-12-09] MEDS ORDERED: SODIUM CHLORIDE 0.9% 500 ML 500 ML IV ONE ×2 (01:44→02:27)
[2020-12-09] MEDS: SODIUM CHLORIDE 0.9% 1,000 ML IV SCH ×3 (04:04→19:09)
[2020-12-09 07:20] LABS: Glucose,Whole Blood 121 mg/dL (75-99)
[2020-12-09] MEDS ORDERED: carvediloL 3.125 MG TAB PO SCH (07:30)
[2020-12-09] MEDS: INSULIN ASPART (NovoLOG) 100 UNIT/ML VIAL SQ SCH ×4 (07:38→21:19)
[2020-12-09] MEDS: HEPARIN SODIUM,PORCINE/PF 5,000 UNIT/0.5 ML SYRINGE SQ SCH ×2 (08:09→21:20)
[2020-12-09] MEDS: DULoxetine HCL 60 MG CAPSULE.DR PO SCH (08:09)
[2020-12-09] MEDS: ASPIRIN 81 MG PO SCH (08:09)
[2020-12-09] MEDS: allopurinoL 100 MG TAB PO SCH (08:09)
[2020-12-09] MEDS: carvediloL 12.5 MG TAB PO SCH ×2 (08:10→16:36)
[2020-12-09] MEDS: PANTOPRAZOLE 40 MG/10 ML VIAL IV SCH (08:10)
[2020-12-09 11:40] LABS: Glucose,Whole Blood 132 mg/dL (75-99)
[2020-12-09 12:37] LABS: Basophils # (A) 0 X 10*3/uL (0.00-0.10); Basophils % (A) 0 %; Eosinophils # (A) 0.09 X 10*3/uL (0.04-0.35); Eosinophils % (A) 1.6 %; HCT 32.3 % (39.6-50.0); HGB 10.7 g/dL (13.0-17.0); Lymphocytes # (A) 0.93 X 10*3/uL (0.90-5.00); Lymphocytes % (A) 16.8 %; MCH 30.2 pg (27.0-32.0); MCHC 33.1 g/dL (32.0-37.0); MCV 91.2 fL (80.0-97.0); Mean Platelet Volume 11.8 fL (9.5-12.2); Monocytes # (A) 0.86 X 10*3/uL (0.20-1.00); Monocytes % (A) 15.6 %; Neutrophils % (A) 65.3 %; Platelet Count 90 X 10*3/uL (140-440); RBC 3.54 X 10*6/uL (4.40-5.60); RDW 13.3 % (11.5-14.5); WBC 5.52 X 10*3/uL (4.50-10.00)
[2020-12-09 12:52] LABS: African American GFR (CKD) 36.7 (60.0-200.0); Albumin/Globulin Ratio 1.58 (1.60-3.17); Anion Gap 5.4 mmol/L (4.00-12.00); Calcium 6.9 mg/dL (8.7-10.3); Carbon Dioxide 18.6 mmol/L (21.6-31.8); Globulin 1.9 g/dL (1.6-3.3); Non-African American GFR(CKD) 31.7 (60.0-200.0); Potassium 4.2 mmol/L (3.5-5.5); Total Bilirubin 1.7 mg/dL (0.2-1.2); Total Protein 4.9 g/dL (6.2-8.2)
--- NOTE | 2020-12-09 13:44 | P.PN ---
Subjective This is a pleasant 75 years old male with past medical history of diabetes mellitus, hypertension, hyperlipidemia, coronary artery disease status post stent, syncope, chronic kidney disease stage III Patient presents because of nausea vomiting and diarrhea and states she had a fever at 100.4 checked by his before coming to the hospital. Patient says that his been vomiting and having diarrhea almost 25 times per hour at a rate of once per hour. Its loose watery with no blood. He had some mild periumbilical pain is resolved now. No abdominal tenderness. He is feeling hungry and wants some liquid diet, he tolerated both surgical so far. No chest pain or dyspnea. No urinary Complains. No headache or weakness or numbness Vital signs admission showing mild tachycardia at 125, came back to 98, and 106. Present rate is 16, blood pressure 116/75, 221/69. Saturating is 95% on room air. Labs show an unremarkable CBC, INR is 1.0. Creatinine is elevated at 3.1, baseline is 1.1-1.7. Elevated lactic acid 2.1 came back to normal at 1.6. Her enzymes not elevated. EKG showing sinus tachycardia at 218, with a Q wave in V1 through V4. No significant ST-T changes. QTC is 462. Chest x-ray: No acute process CT of the abdomen and pelvis without contrast: No sign of acute abdomen and pelvis. atherosclerotic vascular disease. Surgery team were consulted from emergency room 12/08/2020 pt is still with nausea , no vomiting , has some abd cramps and gas in his belly with small amount soft diarreha every 15 min, vitals stable but he developed fever today at 102 Labs look stable. With no leukocytosis. Supportcalcitonin is elevated at 1.4. KUB showing nonobstructive gas pattern. Creatinine is improving down to 2.0. He remains on normal saline Today we added antibiotics with Levaquin and Flagyl. And sent for repeat blood culture Patient feeling better today, he still have some diarrhea but no abdominal pain or nausea vomiting. Overnight his blood pressure was on the low side and he received 2 boluses of normal saline at 500 mL. His blood pressure improved currently at 125/70. His Coreg dose was lowered to 25 mg down to 12.5 mg. He had a fever of 102 yesterday, no more fevers since then. And his hemoglobin trending down to 13 down to 10.7 and platelets 122 down to 90. His WBCs is stable. Obtaining is a stable at 2. Liver enzymes slightly up. Heart yesterday on Flagyl and IV Levaquin. Patient is possibly plan for colonoscopy tomorrow by surgery team recommendation who are following him closely Lower his normal saline 200 mL per hour. EKG showing sinus tachycardia at 118 and QTC of 462. Follow-up results of stool studies which is pending for now. Objective - Vital Signs Vital signs: Vital Signs Temp 99.0 F 12/09/20 07:00 Pulse 88 12/09/20 08:00 Resp 16 12/09/20 08:00 BP 125/70 12/09/20 11:25 Pulse Ox 96 12/09/20 07:00 Intake & Output 12/08/20 12/09/20 12/09/20 18:59 06:59 18:59 Other: Voiding Method Toilet Toilet # Voids 1 1 - Exam GENERAL: The patient is alert and oriented x3, not in any acute distress. Well developed, well nourished. HEENT: Pupils are round and equally reacting to light. EOMI. No scleral icterus. No conjunctival pallor. Normocephalic, atraumatic. No pharyngeal erythema. No thyromegaly. CARDIOVASCULAR: S1 and S2 present. No murmurs, rubs, or gallops. PULMONARY: Chest is clear to auscultation, no wheezing or crackles. -ABDOMEN: Soft, mild periumbilical tenderness, no rebound tenderness nontender, nondistended, normoactive bowel sounds. No palpable organomegaly. MUSCULOSKELETAL: No joint swelling or deformity. EXTREMITIES: No cyanosis, clubbing, or pedal edema. NEUROLOGICAL: Gross neurological examination did not reveal any focal deficits. SKIN: No rashes. no petechiae. - Labs CBC & Chem 7: 12/09/20 07:35 12/09/20 07:35 Labs: Abnormal Lab Results - Last 24 Hours (Table) 12/08/20 12/08/20 12/08/20 Range/Units 05:11 17:31 20:46 RBC (4.40-5.60) X 10*6/uL Hgb (13.0-17.0) g/dL Hct (39.6-50.0) % Plt Count (140-440) X 10*3/uL Plt Count Comment Chloride (96-109) mmol/L Carbon Dioxide (21.6-31.8) mmol/L Creatinine (0.6-1.5) mg/dL Est GFR (CKD-EPI)AfAm (60.0-200.0) Est GFR (CKD-EPI)NonAf (60.0-200.0) BUN/Creatinine Ratio (12.00-20.00) Ratio Glucose (70-110) mg/dL POC Glucose (mg/dL) 165 H 166 H (75-99) mg/dL Calcium (8.7-10.3) mg/dL Total Bilirubin (0.2-1.2) mg/dL AST (14-35) U/L ALT (10-49) U/L Alkaline Phosphatase (41-126) U/L Total Protein (6.2-8.2) g/dL Albumin (3.80-4.90) g/dL Albumin/Globulin Ratio (1.60-3.17) g/dL Procalcitonin 1.24 H (0.02-0.09) ng/mL 12/09/20 12/09/20 12/09/20 Range/Units 07:13 07:35 07:35 RBC 3.54 L (4.40-5.60) X 10*6/uL Hgb 10.7 L (13.0-17.0) g/dL Hct 32.3 L (39.6-50.0) % Plt Count 90 L (140-440) X 10*3/uL Plt Count Comment DECREASED A Chloride 115 H (96-109) mmol/L Carbon Dioxide 18.6 L (21.6-31.8) mmol/L Creatinine 2.0 H (0.6-1.5) mg/dL Est GFR (CKD-EPI)AfAm 36.7 L (60.0-200.0) Est GFR (CKD-EPI)NonAf 31.7 L (60.0-200.0) BUN/Creatinine Ratio 11.00 L (12.00-20.00) Ratio Glucose 118 H (70-110) mg/dL POC Glucose (mg/dL) 121 H (75-99) mg/dL Calcium 6.9 L (8.7-10.3) mg/dL Total Bilirubin 1.7 H (0.2-1.2) mg/dL AST 126 H (14-35) U/L ALT 183 H (10-49) U/L Alkaline Phosphatase 143 H (41-126) U/L Total Protein 4.9 L (6.2-8.2) g/dL Albumin 3.00 L (3.80-4.90) g/dL Albumin/Globulin Ratio 1.58 L (1.60-3.17) g/dL Procalcitonin (0.02-0.09) ng/mL 12/09/20 Range/Units 11:36 RBC (4.40-5.60) X 10*6/uL Hgb (13.0-17.0) g/dL Hct (39.6-50.0) % Plt Count (140-440) X 10*3/uL Plt Count Comment Chloride (96-109) mmol/L Carbon Dioxide (21.6-31.8) mmol/L Creatinine (0.6-1.5) mg/dL Est GFR (CKD-EPI)AfAm (60.0-200.0) Est GFR (CKD-EPI)NonAf (60.0-200.0) BUN/Creatinine Ratio (12.00-20.00) Ratio Glucose (70-110) mg/dL POC Glucose (mg/dL) 132 H (75-99) mg/dL Calcium (8.7-10.3) mg/dL Total Bilirubin (0.2-1.2) mg/dL AST (14-35) U/L ALT (10-49) U/L Alkaline Phosphatase (41-126) U/L Total Protein (6.2-8.2) g/dL Albumin (3.80-4.90) g/dL Albumin/Globulin Ratio (1.60-3.17) g/dL Procalcitonin (0.02-0.09) ng/mL Microbiology - Last 24 Hours (Table) 12/07/20 03:30 Blood Culture - Preliminary Blood No Growth after 48 hours 12/08/20 12:00 Stool Culture - Preliminary Stool Assessment and Plan Assessment: acute gastroenteritis, most likely to gram-negative bacteria versus anaerobes Acute kidney injury, improving Diabetes mellitus Attention Hyperlipidemia Chronic kidney disease, stage III History of coronary artery disease status post stenting history of syncope History of colon resection secondary to perforation by Dr. Anaya Plan: This is a pleasant 75 years old male who presents with nausea vomiting and diarrhea. And SAMIR Continue with IV hydration. Continue with Levaquin and Flagyl. Follow-up blood culture, stool culture and studies Monitor Creatinine.if follow-up with nephrology consult Hold lisinopril. Lower dose of Coreg Resume clear liquid diet Check a bladder scan Labs and medication were reviewed.. Continue same treatment. Continue with symptomatic treatment. Resume home medication. Monitor lytes and vitals. DVT and GI prophylaxis. Further recommendations depends on the clinical course of the patient DVT prophylaxis: Subcutaneous heparin GI Prophylaxis: Ppi PT/OT: Pending Prognosis is guarded
--- NOTE | 2020-12-09 14:46 | P.PN ---
Subjective Progress Note Date: 12/09/20 CHIEF COMPLAINT: Abdominal pain HISTORY OF PRESENT ILLNESS: The patient is a 75-year-old male with past g astritis last upper endoscopy August 2019 including open low anterior resection in 2017 who now presents with abdominal pain. He has past history of emphysematous gastritis. Patient's abdominal pain is improving. He complains of having a soreness from all left over from all the vomiting that he had been taking. He denies any further episodes of nausea or vomiting. He's had a decrease in diarrhea. His stools are less frequent and started becoming more formed. He did have a temp of 102.9 yesterday evening with tachycardia. Patient patient denies any increase in abdominal pain at that time. Patient reports that he is feeling better than yesterday. KUB x-ray was completed showing colonic gas no evidence of obstruction. Patient is hungry and is requesting more food. Currently afebrile. WBC is 5.5 to him going 10.7 platelets 90 sodium 139 potassium 4.2 creatinine 2.0 patient has had increase in total bilirubin of 1.7 AST 126 ALT 183 and alk phos 143 PHYSICAL EXAM: VITAL SIGNS: Reviewed. GENERAL: Well-developed in no acute distress. HEENT: No sclera icterus. Extraocular movements grossly intact. Moist buccal mucosa. Head is atraumatic, normocephalic. ABDOMEN: Soft. Nondistended. Nontender. NEUROLOGIC: Alert and oriented. Cranial nerves II through XII grossly intact. ASSESSMENT: 1. Abdominal pain with nausea, vomiting and diarrhea. history of emphysematous gastritis 2. Thrombocytopenia 3. Ischemic cardiomyopathy 4. Stage III chronic renal disease 5. Diabetes type 2, diabetic nephropathy 6. Lactic acidosis on admission 7. Elevated LFTs patient does have history of cholecystectomy PLAN: -Patient is tentatively scheduled for EGD with Dr. Anaya on , 12/10/2020 -Keep patient nothing by mouth after midnight -Advanced at full liquids -Continue supportive care -Continue Protonix Physician [employer] Diver note has been reviewed by physician. Signing provider agrees with the documented findings, assessment, and plan of care. Objective - Vital Signs Vital signs: Vital Signs Temp 99.0 F 12/09/20 07:00 Pulse 88 12/09/20 13:56 Resp 16 12/09/20 13:56 BP 125/70 12/09/20 11:25 Pulse Ox 96 12/09/20 07:00 Intake & Output 12/08/20 12/09/20 12/09/20 18:59 06:59 18:59 Intake Total 400 Balance 400 Intake: Oral 400 Other: Voiding Method Toilet Toilet # Voids 1 1 3 - Labs CBC & Chem 7: 12/09/20 07:35 12/09/20 07:35 Labs: Abnormal Lab Results - Last 24 Hours (Table) 12/08/20 12/08/20 12/08/20 Range/Units 05:11 17:31 20:46 RBC (4.40-5.60) X 10*6/uL Hgb (13.0-17.0) g/dL Hct (39.6-50.0) % Plt Count (140-440) X 10*3/uL Plt Count Comment Chloride (96-109) mmol/L Carbon Dioxide (21.6-31.8) mmol/L Creatinine (0.6-1.5) mg/dL Est GFR (CKD-EPI)AfAm (60.0-200.0) Est GFR (CKD-EPI)NonAf (60.0-200.0) BUN/Creatinine Ratio (12.00-20.00) Ratio Glucose (70-110) mg/dL POC Glucose (mg/dL) 165 H 166 H (75-99) mg/dL Calcium (8.7-10.3) mg/dL Total Bilirubin (0.2-1.2) mg/dL AST (14-35) U/L ALT (10-49) U/L Alkaline Phosphatase (41-126) U/L Total Protein (6.2-8.2) g/dL Albumin (3.80-4.90) g/dL Albumin/Globulin Ratio (1.60-3.17) g/dL Procalcitonin 1.24 H (0.02-0.09) ng/mL 12/09/20 12/09/20 12/09/20 Range/Units 07:13 07:35 07:35 RBC 3.54 L (4.40-5.60) X 10*6/uL Hgb 10.7 L (13.0-17.0) g/dL Hct 32.3 L (39.6-50.0) % Plt Count 90 L (140-440) X 10*3/uL Plt Count Comment DECREASED A Chloride 115 H (96-109) mmol/L Carbon Dioxide 18.6 L (21.6-31.8) mmol/L Creatinine 2.0 H (0.6-1.5) mg/dL Est GFR (CKD-EPI)AfAm 36.7 L (60.0-200.0) Est GFR (CKD-EPI)NonAf 31.7 L (60.0-200.0) BUN/Creatinine Ratio 11.00 L (12.00-20.00) Ratio Glucose 118 H (70-110) mg/dL POC Glucose (mg/dL) 121 H (75-99) mg/dL Calcium 6.9 L (8.7-10.3) mg/dL Total Bilirubin 1.7 H (0.2-1.2) mg/dL AST 126 H (14-35) U/L ALT 183 H (10-49) U/L Alkaline Phosphatase 143 H (41-126) U/L Total Protein 4.9 L (6.2-8.2) g/dL Albumin 3.00 L (3.80-4.90) g/dL Albumin/Globulin Ratio 1.58 L (1.60-3.17) g/dL Procalcitonin (0.02-0.09) ng/mL 12/09/20 Range/Units 11:36 RBC (4.40-5.60) X 10*6/uL Hgb (13.0-17.0) g/dL Hct (39.6-50.0) % Plt Count (140-440) X 10*3/uL Plt Count Comment Chloride (96-109) mmol/L Carbon Dioxide (21.6-31.8) mmol/L Creatinine (0.6-1.5) mg/dL Est GFR (CKD-EPI)AfAm (60.0-200.0) Est GFR (CKD-EPI)NonAf (60.0-200.0) BUN/Creatinine Ratio (12.00-20.00) Ratio Glucose (70-110) mg/dL POC Glucose (mg/dL) 132 H (75-99) mg/dL Calcium (8.7-10.3) mg/dL Total Bilirubin (0.2-1.2) mg/dL AST (14-35) U/L ALT (10-49) U/L Alkaline Phosphatase (41-126) U/L Total Protein (6.2-8.2) g/dL Albumin (3.80-4.90) g/dL Albumin/Globulin Ratio (1.60-3.17) g/dL Procalcitonin (0.02-0.09) ng/mL Microbiology - Last 24 Hours (Table) 12/07/20 03:30 Blood Culture - Preliminary Blood No Growth after 48 hours 12/08/20 12:00 Stool Culture - Preliminary Stool
[2020-12-09 17:37] LABS: Glucose,Whole Blood 157 mg/dL (75-99)
--- NOTE | 2020-12-09 17:47 | PN ---
PROGRESS NOTE Patient is seen for followup for acute kidney injury on top of chronic kidney disease. Yesterday, patient developed significant hypotension needing a L of fluid bolus. His blood pressure was as low as 76 mmHg systolic. He also has had a fever of 102.9 degrees Fahrenheit. Currently patient is maintained on Levaquin and Flagyl. He states that his diarrhea is slightly improved. Overall feeling better than last night. PHYSICAL EXAMINATION: On examination today, blood pressure 130/72, heart rate 84 per minute. Patient is afebrile. Examination of the heart S1, S2. Examination of the lungs, bilateral breath sounds are heard. Abdomen is soft, nontender. Examination of lower extremities shows no significant edema. PROPERTY COORDINATOR exam grossly intact. LAB: Show hemoglobin 10.7, white cell count 5.52, sodium of 139, potassium 4.2, chloride 115, CO2 is 18.6, BUN 22, creatinine 2.0. ASSESSMENT: 1. Acute kidney injury. Prerenal, currently stable with creatinine staying at about 2.0. Patient did have an episode of hypotension yesterday, which might worsen the renal function. We will continue with the IV fluids for now. Blood pressure is much better. 2. 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 Previous creatinine around 1.7 from August of 2019. 3. Mild non gap metabolic acidosis from diarrhea and acute kidney injury. 4. Nausea, vomiting, diarrhea with possible food allergy. This seems to be improving. However, patient developed hypotension and fever. This is most likely related to underlying diverticulitis. He is maintained on antibiotics, hemodynamically stable and also maintained on IV fluids which we will continue. PLAN: Continue IV fluids. Continue IV antibiotics. Add oral sodium bicarb and repeat labs in a.m. Hold Coreg if blood pressure remains low. MMODL / IJN: [id number] /
[2020-12-09 20:55] LABS: Glucose,Whole Blood 147 mg/dL (75-99)
[2020-12-09] MEDS: SODIUM BICARBONATE TAB 650 MG TAB PO SCH (21:20)
[2020-12-09] MEDS: ATORVASTATIN 20 MG TAB PO SCH (21:20)
[2020-12-09] MEDS: LORazepam 2 MG/ML INJ IV PRN (21:58)
[2020-12-10] MEDS: metroNIDAZOLE-NS PMX 500 MG in SALINE 1 100ML.BAG IVPB SCH ×2 (00:33→08:29)
[2020-12-10] MEDS: SODIUM CHLORIDE 0.9% 1,000 ML IV SCH (02:47)
[2020-12-10 07:16] LABS: Glucose,Whole Blood 104 mg/dL (75-99)
[2020-12-10 07:44] LABS: Basophils % (A) 0 %; Eosinophils # (A) 0.2 k/uL (0-0.7); Eosinophils % (A) 3 %; HCT 33.5 % (39.0-53.0); Lymphocytes % (A) 19 %; MCH 32.5 pg (25.0-35.0); MCHC 35.4 g/dL (31.0-37.0); MCV 91.7 fL (80.0-100.0); Mean Platelet Volume 8.6; Monocytes # (A) 0.5 k/uL (0-1.0); Monocytes % (A) 9 %; Neutrophils # (A) 3.7 k/uL (1.3-7.7); Neutrophils % (A) 66 %; Platelet Count 110 k/uL (150-450); RBC 3.65 m/uL (4.30-5.90); RDW 13.3 % (11.5-15.5); WBC 5.6 k/uL (3.8-10.6)
[2020-12-10 07:50] LABS: HGB 11.9 gm/dL (13.0-17.5)
[2020-12-10 08:03] LABS: ALT 120 U/L (4-49); AST 65 U/L (17-59); African American GFR (CKD) 50 (>60 ml/min/1.73 sqM); Albumin 2.6 g/dL (3.5-5.0); Alkaline Phosphatase 147 U/L (38-126); Anion Gap 7 mmol/L; Blood Urea Nitrogen 15 mg/dL (9-20); Calcium 7.6 mg/dL (8.4-10.2); Carbon Dioxide 18 mmol/L (22-30); Chloride 117 mmol/L (98-107); Globulin 2.6 g/dL; Glucose 107 mg/dL (74-99); Non-African American GFR(CKD) 43 (>60 ml/min/1.73 sqM); Potassium 4.1 mmol/L (3.5-5.1); Sodium 142 mmol/L (137-145); Total Bilirubin 0.7 mg/dL (0.2-1.3); Total Protein 5.2 g/dL (6.3-8.2)
[2020-12-10] MEDS: INSULIN ASPART (NovoLOG) 100 UNIT/ML VIAL SQ SCH ×4 (08:21→20:45)
[2020-12-10] MEDS: ASPIRIN 81 MG PO SCH (08:29)
[2020-12-10] MEDS: HEPARIN SODIUM,PORCINE/PF 5,000 UNIT/0.5 ML SYRINGE SQ SCH ×2 (08:29→20:45)
[2020-12-10] MEDS: DULoxetine HCL 60 MG CAPSULE.DR PO SCH (08:29)
[2020-12-10] MEDS: carvediloL 12.5 MG TAB PO SCH ×2 (08:29→17:29)
[2020-12-10] MEDS: PANTOPRAZOLE 40 MG/10 ML VIAL IV SCH (08:29)
[2020-12-10] MEDS: allopurinoL 100 MG TAB PO SCH (08:30)
[2020-12-10] MEDS: SODIUM BICARBONATE TAB 650 MG TAB PO SCH ×2 (08:30→20:46)
[2020-12-10] MEDS ORDERED: LEVOFLOXACIN 500MG-D5W PMX 500 MG in DEXTROSE/WATER 1 100ML.BAG IVPB SCH (09:00)
[2020-12-10] MEDS: LACTATED RINGERS 1,000 ML IV SCH ×2 (11:26→20:25)
[2020-12-10] MEDS: LORazepam 2 MG/ML INJ IV PRN ×2 (11:32→20:46)
[2020-12-10 12:21] LABS: Glucose,Whole Blood 163 mg/dL (75-99)
--- NOTE | 2020-12-10 13:54 | PN ---
PROGRESS NOTE Patient is seen for followup for chronic kidney disease and acute kidney injury. He was admitted to the hospital with symptoms of gastroenteritis and developed fever and hypotension 2 days post admission and is currently being treated for diverticulitis. Blood pressure is improved. Overall, patient is feeling better and his renal function is also improved with creatinine down to 1.5 mg/dL. PHYSICAL EXAMINATION: On examination today, blood pressure 160/78, heart rate 74 per minute. He is afebrile. Examination of the heart S1, S2. Examination of the lungs, decreased breath sounds at the bases. Abdomen is soft, nontender. Examination of lower extremities shows no significant edema. PHOTOGRAPH MOUNTER exam grossly intact. LAB: Show sodium 142, potassium 4.1, chloride 117 CO2 is 18, BUN 15, creatinine 1.5, hemoglobin 11.9. ASSESSMENT: 1. Acute kidney injury prerenal currently improved. 2. Chronic kidney disease secondary to FSGS NKF stage III. 3. Gastroenteritis on initial admission with worsening of clinical status with fever and hypotension currently being treated for diverticulitis and improved. 4. Metabolic acidosis associated with renal failure and diarrhea, started on oral sodium bicarb yesterday. PLAN: Change IV fluids to Ringer lactate. Decrease rate to about 70 mL an hour. Continue with antibiotics. Repeat labs in a.m. Possible discharge tomorrow. MMODL / IJN: [id number] /
--- NOTE | 2020-12-10 14:49 | P.PN ---
Subjective Progress Note Date: 12/10/20 CHIEF COMPLAINT: Abdominal pain HISTORY OF PRESENT ILLNESS: The patient is a 75-year-old male with past g astritis last upper endoscopy August 2019 including open low anterior resection in 2017 who now presents with abdominal pain. He has past history of emphysematous gastritis. Patient denies any abdominal pain today. He denies any nausea or vomiting. He is tolerating diet. His diarrhea has improved. He's afebrile. WBC 5.6 hemoglobin 11.9 platelets 110 sodium 142 creatinine 1.55 total bili 0.7 LFTs trending downwards PHYSICAL EXAM: VITAL SIGNS: Reviewed. GENERAL: Well-developed in no acute distress. HEENT: No sclera icterus. Extraocular movements grossly intact. Moist buccal mucosa. Head is atraumatic, normocephalic. ABDOMEN: Soft. Nondistended. Nontender. NEUROLOGIC: Alert and oriented. Cranial nerves II through XII grossly intact. ASSESSMENT: 1. Abdominal pain with nausea, vomiting and diarrhea. history of emphysematous gastritis 2. Thrombocytopenia 3. Ischemic cardiomyopathy 4. Stage III chronic renal disease 5. Diabetes type 2, diabetic nephropathy 6. Lactic acidosis on admission 7. Elevated LFTs patient does have history of cholecystectomy PLAN: -Patient's abdominal pain has improved. He is tolerating diet. EGD will be canceled for today -Patient can be started on a regular carb consistent diet -Patient can be discharged from surgical standpoint when medically stable -Continue supportive care -Continue Protonix Physician Mice Raiser note has been reviewed by physician. Signing provider agrees with the documented findings, assessment, and plan of care. Objective - Vital Signs Vital signs: Vital Signs Temp 98.7 F 12/10/20 14:28 Pulse 65 12/10/20 14:28 Resp 16 12/10/20 14:28 BP 150/83 12/10/20 14:28 Pulse Ox 96 12/10/20 14:28 Intake & Output 12/09/20 12/10/20 12/10/20 18:59 06:59 18:59 Intake Total 580 1420 Balance 580 1420 Intake: Intake, IV Titration 880 Amount Lactated Ringers 1,000 ml 680 @ 70 mls/hr IV .[id number] [facility] Rx#:[id number] Levofloxacin 500Mg-D5w 100 Pmx 500 mg In Dextrose/ Water 1 100ml.bag @ 100 mls/hr IVPB Q48H [facility] Rx#: [id number] metroNIDAZOLE-NS PMX 500 100 mg In Saline 1 100ml.bag @ 100 mls/hr IVPB Q8HR [facility] Rx#:[id number] Oral 580 540 Other: Voiding Method Toilet Toilet # Voids 3 2 - Labs CBC & Chem 7: 12/10/20 07:09 12/10/20 07:09 Labs: Abnormal Lab Results - Last 24 Hours (Table) 12/09/20 12/09/20 12/10/20 Range/Units 17:35 20:53 07:09 RBC (4.30-5.90) m/uL Hgb (13.0-17.5) gm/dL Hct (39.0-53.0) % Plt Count (150-450) k/uL Chloride 117 H (98-107) mmol/L Carbon Dioxide 18 L (22-30) mmol/L Creatinine 1.55 H (0.66-1.25) mg/dL Glucose 107 H (74-99) mg/dL POC Glucose (mg/dL) 157 H 147 H (75-99) mg/dL Calcium 7.6 L (8.4-10.2) mg/dL AST 65 H (17-59) U/L ALT 120 H (4-49) U/L Alkaline Phosphatase 147 H (38-126) U/L Total Protein 5.2 L (6.3-8.2) g/dL Albumin 2.6 L (3.5-5.0) g/dL 12/10/20 12/10/20 12/10/20 Range/Units 07:09 07:15 12:20 RBC 3.65 L (4.30-5.90) m/uL Hgb 11.9 L D (13.0-17.5) gm/dL Hct 33.5 L (39.0-53.0) % Plt Count 110 L (150-450) k/uL Chloride (98-107) mmol/L Carbon Dioxide (22-30) mmol/L Creatinine (0.66-1.25) mg/dL Glucose (74-99) mg/dL POC Glucose (mg/dL) 104 H 163 H (75-99) mg/dL Calcium (8.4-10.2) mg/dL AST (17-59) U/L ALT (4-49) U/L Alkaline Phosphatase (38-126) U/L Total Protein (6.3-8.2) g/dL Albumin (3.5-5.0) g/dL Microbiology - Last 24 Hours (Table) 12/07/20 03:30 Blood Culture - Preliminary Blood No Growth after 72 hours 12/08/20 19:41 Blood Culture - Preliminary Blood No Growth after 24 hours
[2020-12-10] MEDS: metroNIDAZOLE 500 MG TAB PO SCH ×2 (16:08→23:33)
[2020-12-10 17:26] LABS: Glucose,Whole Blood 130 mg/dL (75-99)
[2020-12-10 20:33] LABS: Glucose,Whole Blood 156 mg/dL (75-99)
--- NOTE | 2020-12-10 20:39 | P.PN ---
Subjective This is a pleasant 75 years old male with past medical history of diabetes mellitus, hypertension, hyperlipidemia, coronary artery disease status post stent, syncope, chronic kidney disease stage III Patient presents because of nausea vomiting and diarrhea and states she had a fever at 100.4 checked by his before coming to the hospital. Patient says that his been vomiting and having diarrhea almost 25 times per hour at a rate of once per hour. Its loose watery with no blood. He had some mild periumbilical pain is resolved now. No abdominal tenderness. He is feeling hungry and wants some liquid diet, he tolerated both surgical so far. No chest pain or dyspnea. No urinary Complains. No headache or weakness or numbness Vital signs admission showing mild tachycardia at 125, came back to 98, and 106. Present rate is 16, blood pressure 116/75, 221/69. Saturating is 95% on room air. Labs show an unremarkable CBC, INR is 1.0. Creatinine is elevated at 3.1, baseline is 1.1-1.7. Elevated lactic acid 2.1 came back to normal at 1.6. Her enzymes not elevated. EKG showing sinus tachycardia at 218, with a Q wave in V1 through V4. No significant ST-T changes. QTC is 462. Chest x-ray: No acute process CT of the abdomen and pelvis without contrast: No sign of acute abdomen and pelvis. atherosclerotic vascular disease. Surgery team were consulted from emergency room 12/08/2020 pt is still with nausea , no vomiting , has some abd cramps and gas in his belly with small amount soft diarreha every 15 min, vitals stable but he developed fever today at 102 Labs look stable. With no leukocytosis. Supportcalcitonin is elevated at 1.4. KUB showing nonobstructive gas pattern. Creatinine is improving down to 2.0. He remains on normal saline Today we added antibiotics with Levaquin and Flagyl. And sent for repeat blood culture 12/09/20 Patient feeling better today, he still have some diarrhea but no abdominal pain or nausea vomiting. Overnight his blood pressure was on the low side and he received 2 boluses of normal saline at 500 mL. His blood pressure improved currently at 125/70. His Coreg dose was lowered to 25 mg down to 12.5 mg. He had a fever of 102 yesterday, no more fevers since then. And his hemoglobin trending down to 13 down to 10.7 and platelets 122 down to 90. His WBCs is stable. Obtaining is a stable at 2. Liver enzymes slightly up. Heart yesterday on Flagyl and IV Levaquin. Patient is possibly plan for colonoscopy tomorrow by surgery team recommendation who are following him closely Lower his normal saline 200 mL per hour. EKG showing sinus tachycardia at 118 and QTC of 462. Follow-up results of stool studies which is pending for now. 12/10/2020 EGD counseled today by surgery team. She tolerates diet 5200%. No abdominal pain. Diarrhea better. Hemodynamically stable. Creatinine improving down to 1.5. No more fever and currently continued on Flagyl and Levaquin IV fluids change to Ringer lactate at 70 mL per hour. Coreg increased back to 25 mg twice a day because of blood pressure is high again. Possible discharge in 24-48 hours Objective - Vital Signs Vital signs: Vital Signs Temp 98.4 F 12/10/20 07:00 Pulse 74 12/10/20 07:00 Resp 17 12/10/20 07:00 BP 160/78 12/10/20 07:00 Pulse Ox 97 12/10/20 07:00 Intake & Output 12/09/20 12/10/20 12/10/20 18:59 06:59 18:59 Intake Total 580 Balance 580 Intake: Oral 580 Other: Voiding Method Toilet Toilet # Voids 3 2 - Exam GENERAL: The patient is alert and oriented x3, not in any acute distress. Well developed, well nourished. HEENT: Pupils are round and equally reacting to light. EOMI. No scleral icterus. No conjunctival pallor. Normocephalic, atraumatic. No pharyngeal erythema. No thyromegaly. CARDIOVASCULAR: S1 and S2 present. No murmurs, rubs, or gallops. PULMONARY: Chest is clear to auscultation, no wheezing or crackles. -ABDOMEN: Soft, mild periumbilical tenderness, no rebound tenderness nontender, nondistended, normoactive bowel sounds. No palpable organomegaly. MUSCULOSKELETAL: No joint swelling or deformity. EXTREMITIES: No cyanosis, clubbing, or pedal edema. NEUROLOGICAL: Gross neurological examination did not reveal any focal deficits. SKIN: No rashes. no petechiae. - Labs CBC & Chem 7: 12/10/20 07:09 12/10/20 07:09 Labs: Abnormal Lab Results - Last 24 Hours (Table) 12/09/20 12/09/20 12/10/20 Range/Units 17:35 20:53 07:09 RBC (4.30-5.90) m/uL Hgb (13.0-17.5) gm/dL Hct (39.0-53.0) % Plt Count (150-450) k/uL Chloride 117 H (98-107) mmol/L Carbon Dioxide 18 L (22-30) mmol/L Creatinine 1.55 H (0.66-1.25) mg/dL Glucose 107 H (74-99) mg/dL POC Glucose (mg/dL) 157 H 147 H (75-99) mg/dL Calcium 7.6 L (8.4-10.2) mg/dL AST 65 H (17-59) U/L ALT 120 H (4-49) U/L Alkaline Phosphatase 147 H (38-126) U/L Total Protein 5.2 L (6.3-8.2) g/dL Albumin 2.6 L (3.5-5.0) g/dL 12/10/20 12/10/20 12/10/20 Range/Units 07:09 07:15 12:20 RBC 3.65 L (4.30-5.90) m/uL Hgb 11.9 L D (13.0-17.5) gm/dL Hct 33.5 L (39.0-53.0) % Plt Count 110 L (150-450) k/uL Chloride (98-107) mmol/L Carbon Dioxide (22-30) mmol/L Creatinine (0.66-1.25) mg/dL Glucose (74-99) mg/dL POC Glucose (mg/dL) 104 H 163 H (75-99) mg/dL Calcium (8.4-10.2) mg/dL AST (17-59) U/L ALT (4-49) U/L Alkaline Phosphatase (38-126) U/L Total Protein (6.3-8.2) g/dL Albumin (3.5-5.0) g/dL Microbiology - Last 24 Hours (Table) 12/07/20 03:30 Blood Culture - Preliminary Blood No Growth after 72 hours 12/08/20 19:41 Blood Culture - Preliminary Blood No Growth after 24 hours Assessment and Plan Assessment: acute gastroenteritis, most likely to gram-negative bacteria versus anaerobes Acute kidney injury, improving Diabetes mellitus Attention Hyperlipidemia Chronic kidney disease, stage III History of coronary artery disease status post stenting history of syncope History of colon resection secondary to perforation by Dr. Anaya Plan: This is a pleasant 75 years old male who presents with nausea vomiting and diarrhea. And SAMIR Continue with IV hydration. Continue with Levaquin and Flagyl. Follow-up blood culture, stool culture and studies Monitor Creatinine.if follow-up with nephrology consult Hold lisinopril. Continue with home dose of Coreg Resume regular diet Labs and medication were reviewed.. Continue same treatment. Continue with symptomatic treatment. Resume home medication. Monitor lytes and vitals. DVT and GI prophylaxis. Further recommendations depends on the clinical course of the patient DVT prophylaxis: Subcutaneous heparin GI Prophylaxis: Ppi PT/OT: Pending
[2020-12-10] MEDS: ATORVASTATIN 20 MG TAB PO SCH (20:46)
[2020-12-11] MEDS: LORazepam 2 MG/ML INJ IV PRN (01:24)
[2020-12-11 07:13] LABS: Glucose,Whole Blood 119 mg/dL (75-99)
[2020-12-11] MEDS ORDERED: carvediloL 12.5 MG TAB PO SCH (07:30)
[2020-12-11] MEDS: allopurinoL 100 MG TAB PO SCH (07:50)
[2020-12-11] MEDS: HEPARIN SODIUM,PORCINE/PF 5,000 UNIT/0.5 ML SYRINGE SQ SCH (07:50)
[2020-12-11] MEDS: PANTOPRAZOLE 40 MG/10 ML VIAL IV SCH (07:50)
[2020-12-11] MEDS: ASPIRIN 81 MG PO SCH (07:50)
[2020-12-11] MEDS: metroNIDAZOLE 500 MG TAB PO SCH (07:51)
[2020-12-11] MEDS: DULoxetine HCL 60 MG CAPSULE.DR PO SCH (07:51)
[2020-12-11] MEDS: SODIUM BICARBONATE TAB 650 MG TAB PO SCH (07:51)
[2020-12-11] MEDS: INSULIN ASPART (NovoLOG) 100 UNIT/ML VIAL SQ SCH ×2 (07:52→13:00)
[2020-12-11 10:56] LABS: Anion Gap 5.4 mmol/L (4.00-12.00); BUN/Creat Ratio 8.67 Ratio (12.00-20.00); Calcium 7.8 mg/dL (8.7-10.3); Carbon Dioxide 24.6 mmol/L (21.6-31.8); Magnesium 1.4 mg/dL (1.5-2.4); Non-African American GFR(CKD) 44.9 (60.0-200.0); Potassium 4.2 mmol/L (3.5-5.5)
[2020-12-11] MEDS: MAGNESIUM SULFATE-D5W PMX 1 GM in DEXTROSE/WATER 1 100ML.BAG IVPB SCH ×2 (11:48→14:31)
[2020-12-11] MEDS: LACTATED RINGERS 1,000 ML IV SCH (11:49)
--- NOTE | 2020-12-11 11:49 | P.PN ---
Subjective Progress Note Date: 12/11/20 CHIEF COMPLAINT: Abdominal pain HISTORY OF PRESENT ILLNESS: The patient is a 75-year-old male with past g astritis last upper endoscopy August 2019 including open low anterior resection in 2017 who now presents with abdominal pain. He has past history of emphysematous gastritis. Patient denies any abdominal pain today. He denies any nausea or vomiting. He is tolerating diet. His diarrhea has improved. He's afebrile. PHYSICAL EXAM: VITAL SIGNS: Reviewed. GENERAL: Well-developed in no acute distress. HEENT: No sclera icterus. Extraocular movements grossly intact. Moist buccal mucosa. Head is atraumatic, normocephalic. ABDOMEN: Soft. Nondistended. Nontender. NEUROLOGIC: Alert and oriented. Cranial nerves II through XII grossly intact. ASSESSMENT: 1. Abdominal pain with nausea, vomiting and diarrhea. history of emphysematous gastritis 2. Thrombocytopenia 3. Ischemic cardiomyopathy 4. Stage III chronic renal disease 5. Diabetes type 2, diabetic nephropathy 6. Lactic acidosis on admission 7. Elevated LFTs trending down. patient does have history of cholecystectomy PLAN: -Patient's abdominal pain has improved. He is tolerating diet. EGD was canceled yesterday -Continue regular diet, carb consistent -Patient can be discharged from surgical standpoint when medically stable -Continue Protonix Physician [employer] Printing Machinist note has been reviewed by physician. Signing provider agrees with the documented findings, assessment, and plan of care. Objective - Vital Signs Vital signs: Vital Signs Temp 98.2 F 12/11/20 07:00 Pulse 90 12/11/20 08:00 Resp 16 12/11/20 08:00 BP 174/89 12/11/20 07:00 Pulse Ox 95 12/11/20 07:00 Intake & Output 12/10/20 12/11/20 12/11/20 18:59 06:59 18:59 Intake Total 1660 300 Balance 1660 300 Intake: Intake, IV Titration 880 Amount Lactated Ringers 1,000 ml 680 @ 70 mls/hr IV .[id number] [facility] Rx#:[id number] Levofloxacin 500Mg-D5w 100 Pmx 500 mg In Dextrose/ Water 1 100ml.bag @ 100 mls/hr IVPB Q48H [facility] Rx#: [id number] metroNIDAZOLE-NS PMX 500 100 mg In Saline 1 100ml.bag @ 100 mls/hr IVPB Q8HR [facility] Rx#:[id number] Oral 780 300 Other: Voiding Method Toilet Toilet # Voids 2 - Labs CBC & Chem 7: 12/10/20 07:09 12/11/20 05:30 Labs: Abnormal Lab Results - Last 24 Hours (Table) 12/10/20 12/10/20 12/10/20 Range/Units 12:20 17:13 20:32 Chloride (96-109) mmol/L Est GFR (CKD-EPI)AfAm (60.0-200.0) Est GFR (CKD-EPI)NonAf (60.0-200.0) BUN/Creatinine Ratio (12.00-20.00) Ratio Glucose (70-110) mg/dL POC Glucose (mg/dL) 163 H 130 H 156 H (75-99) mg/dL Calcium (8.7-10.3) mg/dL Magnesium (1.5-2.4) mg/dL 12/11/20 12/11/20 Range/Units 05:30 07:12 Chloride 115 H (96-109) mmol/L Est GFR (CKD-EPI)AfAm 52.0 L (60.0-200.0) Est GFR (CKD-EPI)NonAf 44.9 L (60.0-200.0) BUN/Creatinine Ratio 8.67 L (12.00-20.00) Ratio Glucose 117 H (70-110) mg/dL POC Glucose (mg/dL) 119 H (75-99) mg/dL Calcium 7.8 L (8.7-10.3) mg/dL Magnesium 1.4 L (1.5-2.4) mg/dL Microbiology - Last 24 Hours (Table) 12/07/20 03:30 Blood Culture - Preliminary Blood No Growth after 96 hours 12/08/20 19:41 Blood Culture - Preliminary Blood No Growth after 48 hours 12/08/20 12:00 Stool Culture - Preliminary Stool
[2020-12-11 12:39] LABS: Glucose,Whole Blood 164 mg/dL (75-99)
[2020-12-11] MEDS ORDERED: MAGNESIUM OXIDE 400 MG TAB PO SCH (14:02)
[2020-12-11] MEDS ORDERED: LORazepam 0.5 MG TAB PO ONE (14:30)
[2020-12-11 14:36] VITALS: BP 176/84; PULSE 73; RESP 18; TEMP 97.4
[2020-12-11] MEDS ORDERED: FUROSEMIDE 40 MG TAB PO STA (14:43)
[2020-12-11] MEDS ORDERED: amLODIPine 5 MG TAB PO SCH (15:00)
--- NOTE | 2020-12-11 23:52 | P.DS ---
Providers Date of admission: 12/09/20 10:01 Attending physician: Ivan Torres Consults: 12/07/20 04:49 Consult Physician Routine Consulting Provider: Rusty Anaya Consult Reason/Comments: known Do you want consulting provider notified?: Yes 12/07/20 13:04 Consult Physician Urgent Consulting Provider: Samantha Morales Consult Reason/Comments: shivam Do you want consulting provider notified?: Yes Primary care physician: Physician Nonstaff Hospital Course: Diagnoses: acute gastroenteritis, most likely to gram-negative bacteria versus anaerobes Acute kidney injury, improving Diabetes mellitus Attention Hyperlipidemia Chronic kidney disease, stage III History of coronary artery disease status post stenting history of syncope History of colon resection secondary to perforation by Dr. Anaya Hospital course: This is a pleasant 75 years old male with past medical history of diabetes mellitus, hypertension, hyperlipidemia, coronary artery disease status post stent, syncope, chronic kidney disease stage III Patient presents because of nausea vomiting and diarrhea and states she had a fever at 100.4 checked by his before coming to the hospital. The hospital he developed a fever of 102 Patient was treated with IV fluids and antibiotics with Levaquin and Flagyl, patient showed interval improvement, no more nausea vomiting and he tolerates regular diet. Her pain resolved and diarrhea was getting more soft and improvement however he still have frequent bowel movements upon discharge but improving and he can pursue treatment as an outpatient His been evaluated by dog food dough mixer for acute kidney injury with creatinine improved to 3.1 down to 1.5 upon discharge Patient back to baseline and he agrees to go home today. He denies any other symptoms. Chest pain or dyspnea. No headache or dizziness. Patient was cleared for discharge by dog food dough mixer and surgery team. Patient will be discharged on short course of oral antibiotics upon discharge. PT/OT recommended home Problems and management plan were discussed with the patient and he verbalized understanding and acceptance. The was at bedside and she agrees Patient was found stable and can be discharged home however he needs follow-up as an outpatient. Patient was instructed to follow up with PCP Dr. Gonsalez within one week and patient agreesWife states that patient already has an appointment with Dr. Gonsalez Also patient was instructed to follow up with Dr. Morales dog food dough mixer in [address] Anaya surgeon in 1-2 weeks and patient and agree to call and make appointments Note: Because patient will be discharged on Levaquin for 10 days, we'll check EKG on the day of discharge which shows no prolongation of QTC. repeat EKG: qtc 424, NSR AT 61 with first degree heart block, no significant st-t changes Physical exam Gen: patient is a AAOx3, no distress CVS: S1-S2, RRR, no murmur Lungs: B/L CTA, no wheezing Abdomen: soft, no distention, no tenderness, positive bowel sounds Extremity: no leg edema or induration Time spent more than 35 minutes Patient Condition at Discharge: Fair Plan - Discharge Summary Discharge Rx Participant: Yes New Discharge Prescriptions: New Magnesium Oxide [Mag-Ox] 400 mg PO BID 4 Days #8 tab Sodium Bicarbonate Tab 650 mg PO BID #60 tab Acetaminophen Tab [Tylenol] 650 mg PO Q6HR PRN tab PRN Reason: Fever And/ Or Pain amLODIPine [Norvasc] 5 mg PO DAILY #30 tab metroNIDAZOLE [Flagyl] 500 mg PO Q8HR 10 Days #30 tab Levofloxacin [Levaquin] 250 mg PO DAILY 10 Days #10 tab Omeprazole [PriLOSEC] 20 mg PO AC-BID 20 Days #40 cap Continue Multivitamins, Thera [Multivitamin (formulary)] 1 tab PO DAILY Aspirin [Adult Low Dose Aspirin EC] 81 mg PO DAILY Nitroglycerin Sl Tabs [Nitrostat] 0.4 mg SUBLINGUAL Q5M PRN PRN Reason: Chest Pain Ergocalciferol [Vitamin D2 (DRISDOL)] 50,000 unit PO Q14D Rosuvastatin [Crestor] 10 mg PO HS Nortriptyline HCl [Pamelor] 50 mg PO HS Liraglutide [Victoza 2-Seferino] 0.6 mg SQ DAILY DULoxetine HCL [Cymbalta] 60 mg PO DAILY allopurinoL [Zyloprim] 100 mg PO DAILY Furosemide [Lasix] 20 mg PO SUTUWETHSA Carvedilol [Coreg] 25 mg PO BID Furosemide [Lasix] 40 mg PO MOFR traMADol HCl [Ultram] 50 mg PO BID PRN PRN Reason: Pain Terazosin [Hytrin] 1 mg PO DAILY PRN PRN Reason: SBP>140 Terazosin [Hytrin] 5 mg PO HS Discontinued LORazepam [Ativan] 1 mg PO TID PRN PRN Reason: Anxiety lisinopriL [Zestril] 40 mg PO DAILY Discharge Medication List Aspirin [Adult Low Dose Aspirin EC] 81 mg PO DAILY 09/25/16 [History] Carvedilol [Coreg] 25 mg PO BID 09/25/16 [History] DULoxetine HCL [Cymbalta] 60 mg PO DAILY 09/25/16 [History] Ergocalciferol [Vitamin D2 (DRISDOL)] 50,000 unit PO Q14D 09/25/16 [History] Furosemide [Lasix] 20 mg PO SUTUWETHSA 09/25/16 [History] Liraglutide [Victoza 2-Seferino] 0.6 mg SQ DAILY 09/25/16 [History] Multivitamins, Thera [Multivitamin (formulary)] 1 tab PO DAILY 09/25/16 [History] Nitroglycerin Sl Tabs [Nitrostat] 0.4 mg SUBLINGUAL Q5M PRN 09/25/16 [History] Nortriptyline HCl [Pamelor] 50 mg PO HS 09/25/16 [History] Rosuvastatin [Crestor] 10 mg PO HS 09/25/16 [History] allopurinoL [Zyloprim] 100 mg PO DAILY 09/25/16 [History] Furosemide [Lasix] 40 mg PO MOFR 11/11/16 [History] traMADol HCl [Ultram] 50 mg PO BID PRN 02/02/17 [History] Terazosin [Hytrin] 1 mg PO DAILY PRN 08/16/19 [History] Terazosin [Hytrin] 5 mg PO HS 08/16/19 [History] Acetaminophen Tab [Tylenol] 650 mg PO Q6HR PRN tab 12/11/20 [Rx] Levofloxacin [Levaquin] 250 mg PO DAILY 10 Days #10 tab 12/11/20 [Rx] Magnesium Oxide [Mag-Ox] 400 mg PO BID 4 Days #8 tab 12/11/20 [Rx] Omeprazole [PriLOSEC] 20 mg PO AC-BID 20 Days #40 cap 12/11/20 [Rx] Sodium Bicarbonate Tab 650 mg PO BID #60 tab 12/11/20 [Rx] amLODIPine [Norvasc] 5 mg PO DAILY #30 tab 12/11/20 [Rx] metroNIDAZOLE [Flagyl] 500 mg PO Q8HR 10 Days #30 tab 12/11/20 [Rx] Follow up Appointment(s)/Referral(s): Samantha Morales MD [STAFF PHYSICIAN] - 1 Week Nonstaff,Physician [Primary Care Provider] - 1-2 days Rusty Anaya MD [STAFF PHYSICIAN] - 1 Week Activity/Diet/Wound Care/Special Instructions: heart healthy diet activity is restricted till you see your doctor
[2020-12-12] MEDS ORDERED: LEVOFLOXACIN 500 MG TAB PO SCH (09:00)
== END 2020-12-11 15:51 | disposition home or self-care (01) | DRG 372 ==
LOC: EC 02:59 → 6NMEDSUR 04:49 → OBSVTOIN 12-09 10:01
PROVIDERS: ADMIT Hospitalist; ATTEND Hospitalist
DX: A04.8 Other specified bacterial intestinal infections (principal); E87.2 Acidosis; N17.9 Acute kidney failure, unspecified; K57.92 Diverticulitis of intestine, part unspecified, without perforation or abscess without bleeding; E86.0 Dehydration; E78.5 Hyperlipidemia, unspecified; E11.40 Type 2 diabetes mellitus with diabetic neuropathy, unspecified; E87.5 Hyperkalemia; D69.6 Thrombocytopenia, unspecified; F41.9 Anxiety disorder, unspecified; I25.5 Ischemic cardiomyopathy; M79.7 Fibromyalgia; N18.31 Chronic kidney disease, stage 3a; E11.22 Type 2 diabetes mellitus with diabetic chronic kidney disease; I12.9 Hypertensive chronic kidney disease with stage 1 through stage 4 chronic kidney disease, or unspecified chronic kidney disease; I25.10 Atherosclerotic heart disease of native coronary artery without angina pectoris; I25.2 Old myocardial infarction; Z95.5 Presence of coronary angioplasty implant and graft; Z90.49 Acquired absence of other specified parts of digestive tract; Z79.82 Long term (current) use of aspirin; Z79.899 Other long term (current) drug therapy; Z80.8 Family history of malignant neoplasm of other organs or systems; Z88.6 Allergy status to analgesic agent; Z88.0 Allergy status to penicillin; Z88.8 Allergy status to other drugs, medicaments and biological substances; M10.9 Gout, unspecified; I95.9 Hypotension, unspecified
CPT/HCPCS: 36415; 71045; 74018; 74176; 80048; 80053; 81001; 83605; 83615; 83735; 84145; 85025; 85610; 85730; 86140; 87040; 87045; 87046; 93005; 96361; 96374; 96375; 99285

== ENCOUNTER 2021-03-11 18:35 | Observation (INO) | payer MEDICARE ==
[2021-03-11 22:12] LABS: Albumin 4.6 g/dL (3.5-5.0); Calcium 9.8 mg/dL (8.4-10.2); Total Bilirubin 1.1 mg/dL (0.2-1.3); Total Protein 7.7 g/dL (6.3-8.2)
[2021-03-11 22:14] LABS: Appearance,Urine Clear (Clear); Bilirubin,Urine Negative (Negative); Blood,Urine Small (Negative); Color,Urine Yellow; Glucose,Urine (UA) 1+ (Negative); Hyaline Casts,Urine 20 /lpf (0-2); Ketones,Urine Negative (Negative); Leukocyte Esterase,Urine Negative (Negative); Mucus,Urine Rare /hpf; Nitrite,Urine Negative (Negative); Protein,Urine 3+ (Negative); RBC,Urine <1 /hpf (0-5); Specific Gravity,Urine 1.013 (1.001-1.035); Urobilinogen,Urine <2.0 mg/dL (<2.0); WBC,Urine <1 /hpf (0-5)
[2021-03-11] MEDS ORDERED: SODIUM CHLORIDE 0.9% 500 ML 500 ML IV STA (22:19)
[2021-03-11] MEDS ORDERED: ONDANSETRON 4 MG/2 ML VIAL IVP STA (22:19)
[2021-03-11] MEDS ORDERED: LORazepam 2 MG/ML INJ IV STA (22:29)
[2021-03-11] MEDS ORDERED: SODIUM CHLORIDE 0.9% 1,000 ML IV ONE (22:29)
[2021-03-11] MEDS ORDERED: SODIUM CHLORIDE 0.9% 1,000 ML IV STA (22:29)
[2021-03-11 22:45] LABS: Basophils % (A) 0 %; Eosinophils # (A) 0.1 k/uL (0-0.7); Eosinophils % (A) 0 %; HCT 51.5 % (39.0-53.0); HGB 17.5 gm/dL (13.0-17.5); Lymphocytes # (A) 1.3 k/uL (1.0-4.8); Lymphocytes % (A) 12 %; MCH 31.3 pg (25.0-35.0); MCHC 33.9 g/dL (31.0-37.0); MCV 92.4 fL (80.0-100.0); Mean Platelet Volume 8.6; Monocytes # (A) 0.7 k/uL (0-1.0); Monocytes % (A) 6 %; Neutrophils # (A) 8.6 k/uL (1.3-7.7); Neutrophils % (A) 80 %; Platelet Count 170 k/uL (150-450); RBC 5.57 m/uL (4.30-5.90); RDW 13.9 % (11.5-15.5); WBC 10.7 k/uL (3.8-10.6)
--- NOTE | 2021-03-12 00:01 | ED ---
Nausea/Vomiting/Diarrhea HPI - General Chief complaint: Nausea/Vomiting/Diarrhea Stated complaint: V&D Time Seen by Provider: 03/11/21 22:16 Source: patient Mode of arrival: wheelchair Limitations: no limitations - History of Present Illness Initial comments: This patient is 75-year-old man who presents to be evaluated for vomiting and diarrhea that had started around 5 AM. He states that both came on more or less simultaneously. He has also had some intermittent abdominal cramping but states that pain is not the most prominent symptom. He has not noted any blood or coffee-ground material with vomiting. No dark tarry or bloody stools. He stat es that he is just not able to tolerate any oral intake. The patient relates that this is now the sixth episode of this that he has had since having colon resection in 2017 for diverticulitis. He has been scheduled at [facility] and is due to follow with their gastroenterology Department. MD complaint: nausea, vomiting, diarrhea Onset/Timin -: hour(s) Description of Vomiting: food contents Description of Diarrhea: water Associated Abdominal Pain: Yes Location: diffuse Severity: mild Quality: aching Improves with: none Worsens with: none Associated Symptoms: myalgias - Related Data Home Medications Medication Instructions Recorded Confirmed Aspirin [Adult Low Dose Aspirin EC] 81 mg PO DAILY 09/25/16 03/11/21 Carvedilol [Coreg] 25 mg PO BID 09/25/16 03/11/21 DULoxetine HCL [Cymbalta] 60 mg PO DAILY 09/25/16 03/11/21 Ergocalciferol [Vitamin D2 50,000 unit PO Q14D 09/25/16 03/11/21 (DRISDOL)] Furosemide [Lasix] 20 mg PO SUTUWETHSA 09/25/16 03/11/21 Multivitamins, Thera [Multivitamin 1 tab PO DAILY 09/25/16 03/11/21 (formulary)] Nitroglycerin Sl Tabs [Nitrostat] 0.4 mg SUBLINGUAL Q5M PRN 09/25/16 03/11/21 Rosuvastatin [Crestor] 10 mg PO HS 09/25/16 03/11/21 allopurinoL [Zyloprim] 100 mg PO DAILY 09/25/16 03/11/21 Furosemide [Lasix] 40 mg PO MOFR 11/11/16 03/11/21 traMADol HCl [Ultram] 50 mg PO BID PRN 02/02/17 03/11/21 Terazosin [Hytrin] 1 mg PO DAILY PRN 08/16/19 03/11/21 Terazosin [Hytrin] 5 mg PO HS 08/16/19 03/11/21 LORazepam [Ativan] 1 mg PO TID PRN 03/11/21 03/11/21 Liraglutide [Victoza 3-Seferino] 0.6 mg SQ DAILY 03/11/21 03/11/21 lisinopriL 40 mg PO DAILY 03/11/21 03/11/21 Allergies Allergy/AdvReac Type Severity Reaction Status Date / Time adhesive tape Allergy Rash/Hives Verified 03/11/21 23:16 Penicillins Allergy Itching Verified 03/11/21 23:16 NSAIDS (Non-Steroidal AdvReac Unknown UNABLE TO Verified 03/11/21 23:16 Anti-Inflamma TAKE DUE TO KIDNEY DISEASE. prednisone AdvReac DEPRESSION Verified 03/11/21 23:16 WITH LARGE DOSES Review of Systems ROS Statement: Those systems with pertinent positive or pertinent negative responses have been documented in the HPI. ROS Other: All systems not noted in ROS Statement are negative. Constitutional: Denies: fever, chills Respiratory: Denies: cough, dyspnea Cardiovascular: Denies: chest pain, palpitations, edema Gastrointestinal: Reports: as per HPI, abdominal pain, nausea, vomiting, diarr hea. 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 Bladder surgery Last Myocardial Infarction Date:: 2010 History of Any Multi-Drug Resistant Organisms: None Reported Past Surgical History: Appendectomy, Bowel Resection, Cholecystectomy, Heart Catheterization With Stent Additional Past Surgical History / Comment(s): Colon Resection Feb 2017 Past Anesthesia/Blood Transfusion Reactions: Motion Sickness Date of Last Stent Placement:: 2010 Past Psychological History: Anxiety Smoking Status: Never smoker Past Alcohol Use History: None Reported Past Drug Use History: None Reported - Past Family History Father Family Medical History: Blood Disorder Additional Family Medical History / Comment(s): lived to 96 Mother Family Medical History: Cancer Additional Family Medical History / Comment(s): Melanoma General Exam Limitations: no limitations General appearance: alert, in no apparent distress Head exam: Present: atraumatic, normocephalic Eye exam: Present: normal appearance. Absent: scleral icterus, conjunctival injection ENT exam: Present: mucous membranes dry Neck exam: Present: normal inspection Respiratory exam: Present: normal lung sounds bilaterally. Absent: respiratory distress, wheezes, rales, rhonchi, stridor Cardiovascular Exam: Present: regular rate, normal rhythm, normal heart sounds. Absent: systolic murmur, diastolic murmur, rubs, gallop GI/Abdominal exam: Present: soft, normal bowel sounds. Absent: distended, tenderness, guarding, rebound, rigid, mass, pulsatile mass, hernia Extremities exam: Present: normal inspection, normal capillary refill. Absent: pedal edema, calf tenderness Back exam: Present: normal inspection. Absent: CVA tenderness (R), CVA tenderness (L) Neurological exam: Present: alert Skin exam: Present: warm, dry, intact, normal color. Absent: rash Course Vital Signs 03/11/21 20:02 Temperature 99 F Pulse Rate 127 H Respiratory 20 Rate Blood Pressure 130/93 O2 Sat by Pulse 97 Oximetry Medical Decision Making - Lab Data Result diagrams: 03/11/21 21:54 03/11/21 21:54 Lab Results 03/11/21 03/11/21 03/11/21 Range/Units 21:54 21:54 21:54 WBC 10.7 H (3.8-10.6) k/uL RBC 5.57 (4.30-5.90) m/uL Hgb 17.5 (13.0-17.5) gm/dL Hct 51.5 (39.0-53.0) % MCV 92.4 (80.0-100.0) fL MCH 31.3 (25.0-35.0) pg MCHC 33.9 (31.0-37.0) g/dL RDW 13.9 (11.5-15.5) % Plt Count 170 (150-450) k/uL MPV 8.6 Neutrophils % 80 % Lymphocytes % 12 % Monocytes % 6 % Eosinophils % 0 % Basophils % 0 % Neutrophils # 8.6 H (1.3-7.7) k/uL Lymphocytes # 1.3 (1.0-4.8) k/uL Monocytes # 0.7 (0-1.0) k/uL Eosinophils # 0.1 (0-0.7) k/uL Basophils # 0.0 (0-0.2) k/uL Sodium 140 (137-145) mmol/L Potassium 5.0 (3.5-5.1) mmol/L Chloride 100 (98-107) mmol/L Carbon Dioxide 26 (22-30) mmol/L Anion Gap 14 mmol/L BUN 35 H (9-20) mg/dL Creatinine 2.10 H (0.66-1.25) mg/dL Est GFR (CKD-EPI)AfAm 35 (>60 ml/min/1.73 sqM) Est GFR (CKD-EPI)NonAf 30 (>60 ml/min/1.73 sqM) Glucose 198 H (74-99) mg/dL Plasma Lactic Acid Axel 1.8 (0.7-2.0) mmol/L Calcium 9.8 (8.4-10.2) mg/dL Total Bilirubin 1.1 (0.2-1.3) mg/dL AST 38 (17-59) U/L ALT 48 (4-49) U/L Alkaline Phosphatase 79 (38-126) U/L Total Protein 7.7 (6.3-8.2) g/dL Albumin 4.6 (3.5-5.0) g/dL Amylase 68 (30-110) U/L Lipase 29 (23-300) U/L Urine Color Urine Appearance (Clear) Urine pH (5.0-8.0) Ur Specific [place] (1.001-1.035) Urine Protein (Negative) Urine Glucose (UA) (Negative) Urine Ketones (Negative) Urine Blood (Negative) Urine Nitrite (Negative) Urine Bilirubin (Negative) Urine Urobilinogen (<2.0) mg/dL Ur Leukocyte Esterase (Negative) Urine RBC (0-5) /hpf Urine WBC (0-5) /hpf Hyaline Casts (0-2) /lpf Urine Mucus (None) /hpf 03/11/21 Range/Units 21:59 WBC (3.8-10.6) k/uL RBC (4.30-5.90) m/uL Hgb (13.0-17.5) gm/dL Hct (39.0-53.0) % MCV (80.0-100.0) fL MCH (25.0-35.0) pg MCHC (31.0-37.0) g/dL RDW (11.5-15.5) % Plt Count (150-450) k/uL MPV Neutrophils % % Lymphocytes % % Monocytes % % Eosinophils % % Basophils % % Neutrophils # (1.3-7.7) k/uL Lymphocytes # (1.0-4.8) k/uL Monocytes # (0-1.0) k/uL Eosinophils # (0-0.7) k/uL Basophils # (0-0.2) k/uL Sodium (137-145) mmol/L Potassium (3.5-5.1) mmol/L Chloride (98-107) mmol/L Carbon Dioxide (22-30) mmol/L Anion Gap mmol/L BUN (9-20) mg/dL Creatinine (0.66-1.25) mg/dL Est GFR (CKD-EPI)AfAm (>60 ml/min/1.73 sqM) Est GFR (CKD-EPI)NonAf (>60 ml/min/1.73 sqM) Glucose (74-99) mg/dL Plasma Lactic Acid Axel (0.7-2.0) mmol/L Calcium (8.4-10.2) mg/dL Total Bilirubin (0.2-1.3) mg/dL AST (17-59) U/L ALT (4-49) U/L Alkaline Phosphatase (38-126) U/L Total Protein (6.3-8.2) g/dL Albumin (3.5-5.0) g/dL Amylase (30-110) U/L Lipase (23-300) U/L Urine Color Yellow Urine Appearance Clear (Clear) Urine pH 6.0 (5.0-8.0) Ur Specific [place] 1.013 (1.001-1.035) Urine Protein 3+ H (Negative) Urine Glucose (UA) 1+ H (Negative) Urine Ketones Negative (Negative) Urine Blood Small H (Negative) Urine Nitrite Negative (Negative) Urine Bilirubin Negative (Negative) Urine Urobilinogen <2.0 (<2.0) mg/dL Ur Leukocyte Esterase Negative (Negative) Urine RBC <1 (0-5) /hpf Urine WBC <1 (0-5) /hpf Hyaline Casts 20 H (0-2) /lpf Urine Mucus Rare H (None) /hpf Disposition Clinical Impression: Intractable vomiting, Acute kidney injury Disposition: [facility] Condition: Good Is patient prescribed a controlled substance at d/c from ED?: No Referrals: Arnaud Gonsalez MD [Primary Care Provider] - 1-2 days
[2021-03-12] MEDS ORDERED: MAG HYDROX/AL HYDROX/SIMETH 30 ML CUP PO PRN (00:36)
[2021-03-12] MEDS ORDERED: PROCHLORPERAZINE 5 MG TAB PO PRN (00:36)
[2021-03-12] MEDS ORDERED: NALOXONE 0.4 MG/ML 1 ML VIAL IV PRN (00:36)
[2021-03-12] MEDS ORDERED: ONDANSETRON 4 MG/2 ML VIAL IVP PRN (00:36)
[2021-03-12] MEDS ORDERED: ACETAMINOPHEN TAB 325 MG TAB PO PRN (00:36)
[2021-03-12] MEDS ORDERED: LORazepam 1 MG TAB PO PRN (01:46)
[2021-03-12 01:48] VITALS: RESP 18
[2021-03-12] MEDS: carvediloL 12.5 MG TAB PO SCH ×2 (03:54→09:02)
[2021-03-12 04:06] LABS: Glucose,Whole Blood 143 mg/dL (75-99)
--- NOTE | 2021-03-12 05:20 | P.HPIM ---
History of Present Illness H&P Date: 03/12/21 Chief Complaint: diarrhea 75 year old male with DM , CKD3, HTN, CAD s/p stents patient coming in with refractory vomiting and diarrhea since morning of 03/11 , he has been experiencing frequent similar episodes (this is the 6th ) since his surgery couple years ago when he had partial colon resection 2016 for diverticulitis per patient (RN) he usually goes into sepsis , for which she was worried and decided to come in early . he denies any GI bleeding or fever at home, he has mild diffuse abd discomfort colicky in nature. he could not keep anything down no recent travel, sick contact or hospitalization , they are seeing GI specialist at [facility] and recently had some imaging done and colonoscopy , all his tests within normal limits patient admitted for IVF hydration and symptoms control COVID negative, patient is vaccinated and received booster Review of Systems Pertinent positives as noted in HPI. 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 Bladder surgery Last Myocardial Infarction Date:: 2010 History of Any Multi-Drug Resistant Organisms: None Reported Past Surgical History: Appendectomy, Bowel Resection, Cholecystectomy, Heart Catheterization With Stent Additional Past Surgical History / Comment(s): Colon Resection Feb 2017 Past Anesthesia/Blood Transfusion Reactions: Motion Sickness Date of Last Stent Placement:: 2010 Past Psychological History: Anxiety Smoking Status: Never smoker Past Alcohol Use History: None Reported Past Drug Use History: None Reported - Past Family History Father Family Medical History: Blood Disorder Additional Family Medical History / Comment(s): lived to Mother Family Medical History: Cancer Additional Family Medical History / Comment(s): Melanoma Medications and Allergies Home Medications Medication Instructions Recorded Confirmed Type Aspirin [Adult Low Dose Aspirin EC] 81 mg PO DAILY 09/25/16 03/11/21 History Carvedilol [Coreg] 25 mg PO BID 09/25/16 03/11/21 History DULoxetine HCL [Cymbalta] 60 mg PO DAILY 09/25/16 03/11/21 History Ergocalciferol [Vitamin D2 50,000 unit PO Q14D 09/25/16 03/11/21 History (DRISDOL)] Furosemide [Lasix] 20 mg PO SUTUWETHSA 09/25/16 03/11/21 History Multivitamins, Thera [Multivitamin 1 tab PO DAILY 09/25/16 03/11/21 History (formulary)] Nitroglycerin Sl Tabs [Nitrostat] 0.4 mg SUBLINGUAL Q5M PRN 09/25/16 03/11/21 History Rosuvastatin [Crestor] 10 mg PO HS 09/25/16 03/11/21 History allopurinoL [Zyloprim] 100 mg PO DAILY 09/25/16 03/11/21 History Furosemide [Lasix] 40 mg PO MOFR 11/11/16 03/11/21 History traMADol HCl [Ultram] 50 mg PO BID PRN 02/02/17 03/11/21 History Terazosin [Hytrin] 1 mg PO DAILY PRN 08/16/19 03/11/21 History Terazosin [Hytrin] 5 mg PO HS 08/16/19 03/11/21 History LORazepam [Ativan] 1 mg PO TID PRN 03/11/21 03/11/21 History Liraglutide [Victoza 3-Seferino] 0.6 mg SQ DAILY 03/11/21 03/11/21 History lisinopriL 40 mg PO DAILY 03/11/21 03/11/21 History Allergies Allergy/AdvReac Type Severity Reaction Status Date / Time adhesive tape Allergy Rash/Hives Verified 03/11/21 23:16 Penicillins Allergy Itching Verified 03/11/21 23:16 NSAIDS (Non-Steroidal AdvReac Unknown UNABLE TO Verified 03/11/21 23:16 Anti-Inflamma TAKE DUE TO KIDNEY DISEASE. prednisone AdvReac DEPRESSION Verified 03/11/21 23:16 WITH LARGE DOSES Physical Exam Vitals: Vital Signs Temp Pulse Resp BP Pulse Ox 03/11/21 20:02 99 F 127 H 20 130/93 97 Intake and Output 03/11/21 03/11/21 03/12/21 14:59 22:59 06:59 Other: Weight 82.554 kg Constitutional: No acute distress, conversant, pleasant Eyes: Anicteric sclerae, moist conjunctiva, Pupils equal round reactive to light ENMT: NC/AT Oropharynx clear, no erythema, or exudates Neck: Supple, FROM, no masses, or JVD No carotid bruits No thyromegaly Lungs: Clear to auscultation Clear to percussion Normal respiratory effort, no accessory muscle use Cardiovascular: Heart regular in rate and rhythm, No murmurs, gallops, or rubs No peripheral edema Abdominal: Soft Nontender, no guarding, rebound or rigidity Abdomen moving with respiration Normoactive bowel sounds No hepatomegaly, No splenomegaly No palpable mass No abdominal wall hernia noted Skin: Normal temperature, tone, texture, turgor No induration No subcutaneous nodules No rash, lesions No ulcers Extremities: No digital cyanosis No clubbing Pedal pulses intact and symmetrical Radial pulses intact and symmetrical No calf tenderness Psychiatric: Alert and oriented to person, place and time Appropriate affect fair judgement Neuro Muscles Strength 5/5 in all 4 extremities Sensation to light touch grossly present throughout Cranial nerves II-XII grossly intact No focal sensory deficits Lymphatics: no palpable cervical or supraclavicular , or inguinal lymph nodes Results CBC & Chem 7: 03/11/21 21:54 03/11/21 21:54 Labs: Abnormal Lab Results - Last 24 Hours (Table) 03/11/21 03/11/21 03/11/21 Range/Units 21:54 21:54 21:59 WBC 10.7 H (3.8-10.6) k/uL Neutrophils # 8.6 H (1.3-7.7) k/uL BUN 35 H (9-20) mg/dL Creatinine 2.10 H (0.66-1.25) mg/dL Glucose 198 H (74-99) mg/dL Urine Protein 3+ H (Negative) Urine Glucose (UA) 1+ H (Negative) Urine Blood Small H (Negative) Hyaline Casts 20 H (0-2) /lpf Urine Mucus Rare H (None) /hpf Assessment and Plan Assessment: acute gastroenteritis refractory nausea vomiting and diarrhea follow up cultures symptomatic control IVF hydration with normal saline LActic acid wnl electrolytes within normal limits SAMIR on CKD3 supportive care hold nephrotoxic meds IVF hydation with normal saline monitor urine output chronic conditions hypertension , controlled , resume home meds, hold nephrotoxic meds DM , insulin sliding scale CAD s/p stents, continue cardiac meds full code anticipated length of stay < 2 midnights
[2021-03-12 06:48] LABS: Glucose,Whole Blood 160 mg/dL (75-99)
[2021-03-12] MEDS ORDERED: HEPARIN SODIUM,PORCINE/PF 5,000 UNIT/0.5 ML SYRINGE SQ SCH (08:00)
[2021-03-12] MEDS: INSULIN ASPART (NovoLOG) 100 UNIT/ML VIAL SQ SCH ×2 (08:50→13:23)
[2021-03-12] MEDS ORDERED: PANTOPRAZOLE 40 MG/10 ML VIAL IV SCH (09:00)
[2021-03-12] MEDS ORDERED: ASPIRIN 81 MG PO SCH (09:00)
[2021-03-12] MEDS ORDERED: DULoxetine HCL 60 MG CAPSULE.DR PO SCH (09:00)
[2021-03-12 09:18] LABS: Basophils # (A) 0.03 X 10*3/uL (0.00-0.10); Basophils % (A) 0.3 %; Eosinophils # (A) 0.16 X 10*3/uL (0.04-0.35); Eosinophils % (A) 1.6 %; HCT 41.4 % (39.6-50.0); Lymphocytes # (A) 1.96 X 10*3/uL (0.90-5.00); Lymphocytes % (A) 19.1 %; MCH 30.2 pg (27.0-32.0); MCHC 33.8 g/dL (32.0-37.0); MCV 89.4 fL (80.0-97.0); Monocytes # (A) 1.21 X 10*3/uL (0.20-1.00); Monocytes % (A) 11.8 %; Neutrophils # (A) 6.86 X 10*3/uL (1.80-7.70); Neutrophils % (A) 66.8 %; Platelet Count 156 X 10*3/uL (140-440); RBC 4.63 X 10*6/uL (4.40-5.60); RDW 13.2 % (11.5-14.5); WBC 10.26 X 10*3/uL (4.50-10.00)
[2021-03-12 10:31] LABS: African American GFR (CKD) 41.7 (60.0-200.0); Albumin 3.7 g/dL (3.8-4.9); Albumin/Globulin Ratio 1.61 (1.60-3.17); Anion Gap 15.2 mmol/L (10.00-18.00); BUN/Creat Ratio 16.06 Ratio (12.00-20.00); Blood Urea Nitrogen 28.9 mg/dL (9.0-27.0); Calcium 8.3 mg/dL (8.7-10.3); Carbon Dioxide 19.8 mmol/L (20.0-27.5); Globulin 2.3 g/dL (1.6-3.3); Potassium 4.4 mmol/L (3.5-5.5); Total Bilirubin 0.9 mg/dL (0.30-1.20)
[2021-03-12 12:27] LABS: Glucose,Whole Blood 127 mg/dL (75-99)
[2021-03-12 14:35] VITALS: BP 99/57; PULSE 90; TEMP 98.5
--- NOTE | 2021-03-12 15:26 | P.DS ---
Providers Date of admission: 03/12/21 00:36 Expected date of discharge: 03/12/21 Attending physician: Nicky Howard MD Primary care physician: Arnaud [facility] Course: acute gastroenteritis refractory nausea vomiting and diarrhea Patient improved rapidly with IVF and symptomatic control. By lunch he was tolerating a regular diet. He was discharged home with follow up with PCP and GI. SAMIR on CKD3 Anticipate rapid improvement with appropriate hydration. Needs lab f/u with PCP at next visit within 1 week as explained to the patient. hypertension , controlled , resumed home meds with no changes DM , resumed home meds with no changes CAD s/p stents, continued cardiac meds with no changes Patient Condition at Discharge: Good Plan - Discharge Summary New Discharge Prescriptions: Continue Multivitamins, Thera [Multivitamin (formulary)] 1 tab PO DAILY Aspirin [Adult Low Dose Aspirin EC] 81 mg PO DAILY Nitroglycerin Sl Tabs [Nitrostat] 0.4 mg SUBLINGUAL Q5M PRN PRN Reason: Chest Pain Ergocalciferol [Vitamin D2 (DRISDOL)] 50,000 unit PO Q14D Rosuvastatin [Crestor] 10 mg PO HS DULoxetine HCL [Cymbalta] 60 mg PO DAILY allopurinoL [Zyloprim] 100 mg PO DAILY Carvedilol [Coreg] 25 mg PO BID traMADol HCl [Ultram] 50 mg PO BID PRN PRN Reason: Pain Terazosin [Hytrin] 1 mg PO DAILY PRN PRN Reason: SBP>140 Terazosin [Hytrin] 5 mg PO HS lisinopriL 40 mg PO DAILY LORazepam [Ativan] 1 mg PO TID PRN PRN Reason: Anxiety Liraglutide [Victoza 3-Seferino] 0.6 mg SQ DAILY Changed Furosemide [Lasix] 20 mg PO DAILY #30 Discontinued Furosemide [Lasix] 40 mg PO MOFR Discharge Medication List Aspirin [Adult Low Dose Aspirin EC] 81 mg PO DAILY 09/25/16 [History] Carvedilol [Coreg] 25 mg PO BID 09/25/16 [History] DULoxetine HCL [Cymbalta] 60 mg PO DAILY 09/25/16 [History] Ergocalciferol [Vitamin D2 (DRISDOL)] 50,000 unit PO Q14D 09/25/16 [History] Multivitamins, Thera [Multivitamin (formulary)] 1 tab PO DAILY 09/25/16 [History] Nitroglycerin Sl Tabs [Nitrostat] 0.4 mg SUBLINGUAL Q5M PRN 09/25/16 [History] Rosuvastatin [Crestor] 10 mg PO HS 09/25/16 [History] allopurinoL [Zyloprim] 100 mg PO DAILY 09/25/16 [History] traMADol HCl [Ultram] 50 mg PO BID PRN 02/02/17 [History] Terazosin [Hytrin] 1 mg PO DAILY PRN 08/16/19 [History] Terazosin [Hytrin] 5 mg PO HS 08/16/19 [History] LORazepam [Ativan] 1 mg PO TID PRN 03/11/21 [History] Liraglutide [Victoza 3-Seferino] 0.6 mg SQ DAILY 03/11/21 [History] lisinopriL 40 mg PO DAILY 03/11/21 [History] Furosemide [Lasix] 20 mg PO DAILY #30 03/12/21 [Rx] Follow up Appointment(s)/Referral(s): Arnaud Gonsalez MD [Primary Care Provider] - 1-2 days Discharge Disposition: HOME SELF-CARE
[2021-03-12] MEDS ORDERED: ATORVASTATIN 20 MG TAB PO SCH (21:00)
[2021-03-12] MEDS ORDERED: DOXAZOSIN 4 MG TAB PO SCH (21:00)
== END 2021-03-12 15:45 | disposition home or self-care (01) ==
LOC: EC 18:35 → 6NMEDSUR 03-12 00:36
PROVIDERS: ADMIT Internal Medicine; ATTEND Internal Medicine
DX: K52.9 Noninfective gastroenteritis and colitis, unspecified (principal); N17.9 Acute kidney failure, unspecified; I12.9 Hypertensive chronic kidney disease with stage 1 through stage 4 chronic kidney disease, or unspecified chronic kidney disease; E11.22 Type 2 diabetes mellitus with diabetic chronic kidney disease; N18.30 Chronic kidney disease, stage 3 unspecified; E78.5 Hyperlipidemia, unspecified; F41.9 Anxiety disorder, unspecified; I25.10 Atherosclerotic heart disease of native coronary artery without angina pectoris; K57.90 Diverticulosis of intestine, part unspecified, without perforation or abscess without bleeding; M10.9 Gout, unspecified; I25.2 Old myocardial infarction; M79.7 Fibromyalgia; Z20.822 Contact with and (suspected) exposure to COVID-19; Z79.82 Long term (current) use of aspirin; Z79.899 Other long term (current) drug therapy; Z88.0 Allergy status to penicillin; Z88.6 Allergy status to analgesic agent; Z91.048 Other nonmedicinal substance allergy status; Z88.8 Allergy status to other drugs, medicaments and biological substances; Z95.5 Presence of coronary angioplasty implant and graft; Z87.448 Personal history of other diseases of urinary system; Z90.49 Acquired absence of other specified parts of digestive tract; Z80.8 Family history of malignant neoplasm of other organs or systems; Z83.2 Family history of diseases of the blood and blood-forming organs and certain disorders involving the immune mechanism
CPT/HCPCS: 99285; 96361 ×2; 96372; 96375; 96374; 36415; 80053 ×2; 82150; 83605; 83690; 85025 ×2; 81001; 87635; G0378; J2060; C9113; J1644